=== PATIENT | male | born 1965 | race Caucasian/White ===

== ENCOUNTER 2020-01-28 05:12 | Inpatient (IN) | payer MEDICARE, MEDICAID ==
[~2020-01-28] VITALS: Ht 185.4 cm; Wt 86.2 kg
[~2020-01-28 05:12] MED LIST: ARIP20TA5 PO; BENZ1TAB7 PO; DIPH-423 PO; FLUO20CA39 PO; HAL5T PO; IBUP-1984 PO; LORA1TAB PO; LURA80TA PO; OLAN2.5T3 PO; OXCA600T25 PO
[2020-01-28 11:45] VITALS: BP 116/78
[2020-01-28] MEDS ORDERED: DIVA-81 PO (14:58)
[2020-01-28] MEDS ORDERED: mag hydrox/Alum hydrox/simeth 30ml oral suspension PO PRN (15:00)
[2020-01-28] MEDS ORDERED: magnesium hydroxide 30ml (MOM) UD suspension PO PRN (15:00)
[2020-01-28] MEDS ORDERED: acetaminophen 325mg tablet PO PRN (15:00)
[2020-01-28] MEDS ORDERED: loperamide 2mg capsule PO PRN (15:00)
[2020-01-28] MEDS ORDERED: ARIP400S3 IM (15:35)
[2020-01-28] MEDS ORDERED: SUCR1TAB PO (15:35)
[2020-01-28] MEDS ORDERED: TRIH2TAB3 PO (15:35)
[2020-01-28] MEDS ORDERED: DIVA500T4 PO ×2 (15:35)
[2020-01-28] MEDS ORDERED: OMEP20TA23 PO (15:35)
[2020-01-28] MEDS ORDERED: LOXA25CA PO (15:35)
[2020-01-28] MEDS ORDERED: PALI234D IM (15:35)
[2020-01-28] MEDS ORDERED: MIDO2.5T14 PO (15:35)
[2020-01-28] MEDS: sucralfate 1 gm tablet PO SCH ×2 (16:45→21:07)
--- NOTE | 2020-01-28 18:03 | NUR ---
Nursing Admit/progress Note: Legal hold: 5150 GD Report received from nursePolina Why are they here: Patient lives at a [facility] in [place] who reported that patient has been posturing towards peers and has increased agitation with staff. During [facility] 5150 assessment patient expressed delusions, became agitated, guarded and verbally hostile. 5150 states that patient was deemed unable to meet his own needs and is gravely disabled. Patient was admitted to the unit at 1145. Assessment What has happened this shift: Patient was brought up to the unit and introduces to staff. He was cooperative with admit process. Patient states that his diagnosis is Paranoid Schizophrenia. He says that he has been having difficulty with staff at the [facility] because one of them tells him to shut up. He states Im odd, I know, I talk to the t.v. Patient is delusional and reports having very bad diarrhea in the pst. He states I had a guinea pig that crawled up my asshole and . Ya, I had to get rid of him, he had a lot of babies Patient denies wanting to harm himself or others but does states that yesterday he was thinking [facility] [place] [facility]. S/I, H/I: denies A/VH: none reported Sleep: n/a ADL's: Independent. Showered Group attendance: Yes. Were meds taken: yes Any med S/E: none noted Mental Status Exam Appearance: Freshly showered, clean and neat. Eye contact: Direct. Behavior: Calm and cooperative. Speech: soft tone, normal rate and rhythm Mood: good Affect:wide eyed, mildly animated Thought process: disorganized Thought Content: delusional Cognition:A/O x 4 Insight: fair Judgment:poor Interventions PRN's used: Tylenol for pain Therapeutic interventions: 1:1 therapeutic assessment, maintained safe therapeutic milieu, provided active listening with positive reinforcement, provided medication administration/education/monitoring as needed; Q15 safety checks. Restraints/seclusion/emergency medication: N/A Justification of Continued Inpatient Treatment: Continued therapeutic support and medication management needed to provide stabilization, prevent decompensation, improve coping mechanisms decreasing risk to patient and re-admittance.
[2020-01-28 20:00] VITALS: BP 136/75
[2020-01-28] MEDS: LOXAPINE 25 MG PO SCH (20:00)
[2020-01-28] MEDS: trihexyphenidyl 2mg tablet PO SCH (21:07)
[2020-01-28] MEDS: divalproex sod 250mg ER (24-hour) tablet PO SCH (21:08)
[2020-01-28] MEDS: haloperidol 5mg tablet PO SCH (21:08)
--- NOTE | 2020-01-29 03:46 | NUR ---
Nursing progress Note: Legal hold: 5150 GD Report received from Susanne COE Why are they here: Patient lives at a [facility] in [place] who reported that patient has been posturing towards peers and has increased agitation with staff. During [facility] 5150 assessment patient expressed delusions, became agitated, guarded and verbally hostile. 5150 states that patient was deemed unable to meet his own needs and is gravely disabled. Patient was admitted to the unit at 1145. Assessment What has happened this shift: Patient observed pacing the phillips at the beginning of shift. He is pleasant and cooperative with all care; compliant with all medication. Patient denies SI, HI, A/VH. No delusional thought content provided this shift. Patient is slow to respond w/sometimes no response and smiling or chuckle. Patient participated in HS snack and shortly after laid down for bed where he has remained for the remainder of the night. No difficulties of sleep observed or reported. Patient's bed is low and locked with call willingham within reach. S/I, H/I: Denies A/VH: Denies Sleep: Refer to sleep assessment ADL's: Independent. Group attendance: No groups this shift Were meds taken: Yes Any med S/E: None reported or observed Mental Status Exam Appearance: Neat, clean, appropriate attire for the unit. Eye contact: Direct. Behavior: Calm and cooperative. Speech: Soft tone, normal rate and rhythm Mood: "Good" Affect: Animated Thought process: Poverty of thought Thought Content: No delusional thought content provided this shift Cognition: A/O x 3 Insight: Poor Judgment: Poor Interventions PRN's used: None Therapeutic interventions: 1:1 therapeutic assessment, maintained safe therapeutic milieu, provided active listening with positive reinforcement, provided medication administration/education/monitoring as needed; Q15 safety checks. Restraints/seclusion/emergency medication: N/A Justification of Continued Inpatient Treatment: Continued therapeutic support and medication management needed to provide stabilization, prevent decompensation, improve coping mechanisms decreasing risk to patient and re-admittance.
[2020-01-29 07:30] VITALS: BP 117/73
[2020-01-29] MEDS: haloperidol 5mg tablet PO SCH ×2 (07:54→21:08)
[2020-01-29] MEDS: divalproex sod 250mg ER (24-hour) tablet PO SCH ×2 (07:54→21:07)
[2020-01-29] MEDS: sucralfate 1 gm tablet PO SCH ×4 (07:55→21:07)
[2020-01-29] MEDS: pantoprazole 40mg Tablet.DR PO SCH (07:55)
[2020-01-29] MEDS ORDERED: midodrine tablet 2.5 MG TABLET PO SCH (08:00)
[2020-01-29] MEDS: trihexyphenidyl 2mg tablet PO SCH ×2 (08:00→21:07)
[2020-01-29] MEDS: LOXAPINE 25 MG PO SCH (08:00)
[2020-01-29] MEDS: midodrine 5mg tablet PO SCH (08:00)
[2020-01-29 09:56] LABS: HEMOGLOBIN A1C 5.8 % (4.5-6.2)
[2020-01-29 10:08] LABS: CHOL/HDL RATIO 3.9 (0.00-4.99); CHOLESTEROL 173 MG/DL (0-200); HDL CHOLESTEROL 44 MG/DL (35-60); LDL CHOLESTEROL 108 MG/DL (50-100); TRIGLYCERIDES 89 MG/DL (20-135); VALPROATE 90 UG/ML (50-100)
--- NOTE | 2020-01-29 13:59 | NUR ---
SS note: [address], "Sometimes I sit quietly and listen to my delusions because they are funny. They are not funny [when they are] about mass suicide [or] suicide probably because I tried that before." Ct stated, "I have demons inside me but I can cast them out."
--- NOTE | 2020-01-29 14:45 | NUR ---
PSYCHOSOCIAL ASSESSMENT Hardik is a 54 y/o single male who was placed on 5150 for grave disability. He has a long history of mental health treatment and a history of conservatorship.He has been residing at [facility] in [place]. He was recently taken off Clozaril due to decreased WBC in November. Hardik was refusing to take his medications and was uncooperative with staff at [facility]. Hardik had become increasingly agitated with staff and peers and had been posturing towards peers. He was delusional, paranoid, verbally hostile, and unable to care for his own needs. Per [facility] [place] Team Clinician, Hardik Michel, Hardik is able to return to [facility] once stabilized. LEXIE Squires Addendum: 01/29/20 at 1446 by Chata Elmore SS Amended: Links added.
--- NOTE | 2020-01-29 16:30 | NUR ---
Nursing progress Note: Hardik Legal hold: 5150 GD Report received from MARTINA Freire with use of SBAR Why are they here: Patient lives at a [facility] in [place] who reported that patient has been posturing towards peers and has increased agitation with staff. During [facility] 5150 assessment patient expressed delusions, became agitated, guarded and verbally hostile. 5150 states that patient was deemed unable to meet his own needs and is gravely disabled. Patient was admitted to the unit at 1145. Assessment What has happened this shift: Patient was awake ambulating in phillips at change of shift. Very pleasant, states he and his room mate where not getting along and it was causing him to become agitated I wasnt going to hurt anyone. When asked if he liked his room mate he stated He is alreight, but I am not attracted to him. Compliant with MH and physical assessment, denies any depression or hallucinations. I am here to get my medications straightened out. Appears very cheerful and cooperative. While sitting in hallway was asked how he was doing, states I think I am hallucinating then describes he saw the PCT pushing the coffee tray and thought he had seen him before. Continues to deny voices well maybe some mumbling. Changed into a superman t-shirt and states when I am depressed, I am frozen in cryptonite but currently denies depression. S/I, H/I: Denies A/VH: Denies Sleep: 8 ADL's: Independent Group attendance: No Were meds taken: yes Any med S/E: minor tremors noted to bilateral hands, patient states this is normal for him. Mental Status Exam Appearance: Hair combed, wearing street clothes Eye contact: direct Behavior: Upbeat, cheerful Speech: normal rate, rhythm, tone Mood: good Affect: Compliant with mood Thought process: [place] Thought Content: board and care, room mate and if he will be able to go back Cognition: A & O 4 Insight: poor Judgment: poor Interventions PRN's used: None Therapeutic interventions: 1:1 therapeutic assessment, maintained safe therapeutic milieu, provided active listening with positive reinforcement, provided medication administration/education/monitoring as needed; Q15 safety checks. Restraints/seclusion/emergency medication: N/A Justification of Continued Inpatient Treatment: Continued therapeutic support and medication management needed to provide stabilization, prevent decompensation, improve coping mechanisms decreasing risk to patient and re-admittance.
[2020-01-29 19:30] VITALS: BP 136/88
[2020-01-29] MEDS ORDERED: LOXAPINE 25 MG PO SCH (20:00)
[2020-01-29] MEDS: hydrOXYzine 25 MG tablet PO PRN (21:08)
--- NOTE | 2020-01-30 02:41 | NUR ---
Nursing progress Note: Hardik Legal hold: 5150 GD Report received from MARTINA Irby with use of SBAR Why are they here: Patient lives at a [facility] in [place] who reported that patient has been posturing towards peers and has increased agitation with staff. During [facility] 5150 assessment patient expressed delusions, became agitated, guarded and verbally hostile. 5150 states that patient was deemed unable to meet his own needs and is gravely disabled. Patient was admitted to the unit at 1145. Assessment What has happened this shift: Patient is self isolating in his room. Patient exhibits anger and refuses to talk to this com writer. Patient is also yelling at other staff. This is untoward his normal behavior. This com writer engaged multiple strategies to engage the patient. Patient responded well to cars as a topic. Patients attitude brightened. Patient tells this com writer he was angry with his mother. When talking patients hands trembled. Initially eye contact was poor. Gradually patient smiled and joked. Patient states "I've been depressed, nothing works." He then states, "Nothing turns me on more than my power, I can use it to take control." The patient then went for snacks and socialized some. Later the patient requested this com writer to show him pictures of fast cars. Patient followed by coming medication compliant and went to sleep. Patient Denies S/I or H/I at this time. No signs of internal stimuli noted. S/I, H/I: Denies A/VH: Denies Sleep:Will tally in late am. ADL's: Independent Group attendance: Not on day shift. Were meds taken: Yes, medication compliant. Any med S/E: None. Mental Status Exam Appearance: Clean look, wearing civilian clothes. Eye contact: Intermittent. Behavior: Angry and unruly. Speech: Loud at first, patient then quiets down. Mood: Angry and demanding. Affect: Compliant with mood Thought process: [place]. Thought Content: I'm from hell, nothing works for my depression. Cognition: A & O 4 Insight: Poor. Judgment: Poor. Interventions PRN's used: None Therapeutic interventions: 1:1 therapeutic assessment, maintained safe therapeutic milieu, provided active listening with positive reinforcement, provided medication administration/education/monitoring as needed; Q15 safety checks. Restraints/seclusion/emergency medication: N/A Justification of Continued Inpatient Treatment: Continued therapeutic support and medication management needed to provide stabilization, prevent decompensation, improve coping mechanisms decreasing risk to patient and re-admittance.
[2020-01-30] MEDS: trihexyphenidyl 2mg tablet PO SCH ×2 (07:59→20:33)
[2020-01-30] MEDS: pantoprazole 40mg Tablet.DR PO SCH (07:59)
[2020-01-30] MEDS: sucralfate 1 gm tablet PO SCH ×4 (07:59→21:37)
[2020-01-30] MEDS: midodrine 5mg tablet PO SCH (07:59)
[2020-01-30] MEDS: haloperidol 5mg tablet PO SCH ×2 (07:59→20:32)
[2020-01-30 08:00] VITALS: BP 119/76
[2020-01-30] MEDS: divalproex sod 250mg ER (24-hour) tablet PO SCH ×2 (08:00→20:34)
[2020-01-30] MEDS: LOXAPINE SUCCINATE 25 MG CAPSULE PO SCH ×2 (10:12→20:31)
--- NOTE | 2020-01-30 15:27 | NUR ---
Nursing progress Note: Hardik Legal hold: 5150 GD Report received from Lloyd RN with use of SBAR Why are they here: Patient lives at a [facility] in [place] who reported that patient has been posturing towards peers and has increased agitation with staff. During [facility] 5150 assessment patient expressed delusions, became agitated, guarded and verbally hostile. 5150 states that patient was deemed unable to meet his own needs and is gravely disabled. Patient was admitted to the unit at 1145. Assessment What has happened this shift: Pt. Was seen in community room. Denies depression or anxiety however admits to not being in a good mood. C/O of staff looking in on him all night and when he complained they flipped me off. Explained why he was being closely observed which he responded I dont care, I wake up really easy. He then began talking about his money and how the [facility] take it all. I would rather live on the streets than go back there. The conversation was causing increasing agitation so suggested he discuss his concerns over discharge with the SW. Was med compliant. Is observed responding to internal stimuli, while walking in hallway loudly stated [place] then held a tangential interaction with the provider talking about how bad this place is, it would be better if it was bombed. He admits he woke up in a poor mood and is waiting for it to get better. Refused group, sits quietly in room with intermittent outbursts. S/I, H/I: Denies A/VH: Denies Sleep: 7 ADL's: independent Group attendance: Were meds taken: without incident Any med S/E: slight tremors to bilateral hands, patient states normal for him Mental Status Exam Appearance: Cai hair, wearing a superman t-shirt (same as yesterday) unshaven Eye contact: direct Behavior: angry, agitated Speech: clear, pressured at times Mood: Poor, angry Affect: Congruent with mood Thought process: Tangential, c/o of staff then c/o of [facility] Thought Content: his money, delusions that someone is stealing it from him Cognition: A & O 4 Insight: Poor. Judgment: Poor. Interventions PRN's used: None Therapeutic interventions: 1:1 therapeutic assessment, maintained safe therapeutic milieu, provided active listening with positive reinforcement, provided medication administration/education/monitoring as needed; Q15 safety checks. Restraints/seclusion/emergency medication: N/A Justification of Continued Inpatient Treatment: Continued therapeutic support and medication management needed to provide stabilization, prevent decompensation, improve coping mechanisms decreasing risk to patient and re-admittance.
[2020-01-30 20:00] VITALS: BP 116/68
[2020-01-30] MEDS: hydrOXYzine 25 MG tablet PO PRN (20:34)
--- NOTE | 2020-01-30 22:48 | NUR ---
Nursing progress Note: Hardik Legal hold: 5150 GD Report received from MARTINA Skinner with use of SBAR Why are they here: Patient lives at a [facility] in [place] who reported that patient has been posturing towards peers and has increased agitation with staff. During [facility] 5150 assessment patient expressed delusions, became agitated, guarded and verbally hostile. 5150 states that patient was deemed unable to meet his own needs and is gravely disabled. Patient was admitted to the unit at 1145. Assessment What has happened this shift: Patient is isolating in his room following shift change. Patient curses at staff, accusing other patients of trying to rape him. Calming measures used. Patient made racial remarks about another patient. This process description writer advised the patient that yelling and accusations would not be tolerated on this unit. The patient then calmed, he ate dinner and had snacks. Patient later told this process description writer that his family has abandoned him. At times the patient is delusional. Patient complied with medication administration. He eventually retired to sleep. S/I, H/I: Denies. A/VH: Denies, he looks like he may be responding to internal stimuli at times. Sleep:Will tally in late am. ADL's: Independent Group attendance: No group on nights. Were meds taken: Yes, medication compliant. Any med S/E: None. Mental Status Exam Appearance: Clean look, wearing civilian clothes. Eye contact: Intermittent. Behavior: Angry and unruly. Speech: Loud at first, patient then quiets down. Mood: Angry and demanding. Affect: Compliant with mood Thought process: [place]. Thought Content: My family hates me, they don't want me around. Patient believes he will be raped here. Cognition: A & O 4 Insight: Poor. Judgment: Poor. Interventions PRN's used: None Therapeutic interventions: 1:1 therapeutic assessment, maintained safe therapeutic milieu, provided active listening with positive reinforcement, provided medication administration/education/monitoring as needed; Q15 safety checks. Restraints/seclusion/emergency medication: N/A Justification of Continued Inpatient Treatment: Continued therapeutic support and medication management needed to provide stabilization, prevent decompensation, improve coping mechanisms decreasing risk to patient and re-admittance.
[2020-01-31] MEDS: sucralfate 1 gm tablet PO SCH ×4 (07:40→20:32)
[2020-01-31] MEDS: pantoprazole 40mg Tablet.DR PO SCH (07:40)
[2020-01-31] MEDS: trihexyphenidyl 2mg tablet PO SCH ×2 (07:40→20:32)
[2020-01-31] MEDS: divalproex sod 250mg ER (24-hour) tablet PO SCH ×2 (07:41→20:33)
[2020-01-31] MEDS: midodrine 5mg tablet PO SCH (07:41)
[2020-01-31] MEDS: haloperidol 5mg tablet PO SCH ×2 (07:41→20:32)
[2020-01-31] MEDS: LOXAPINE SUCCINATE 25 MG CAPSULE PO SCH ×2 (07:43→20:32)
[2020-01-31 08:00] VITALS: BP 101/63
--- NOTE | 2020-01-31 15:43 | NUR ---
Nursing progress Note: Hardik Legal hold: 5150 GD Report received from MARTINA Barron with use of SBAR Why are they here: Patient lives at a [facility] in [place] who reported that patient has been posturing towards peers and has increased agitation with staff. During [facility] 5150 assessment patient expressed delusions, became agitated, guarded and verbally hostile. 5150 states that patient was deemed unable to meet his own needs and is gravely disabled. Patient was admitted to the unit at 1145. Assessment What has happened this shift: When asked if he was in a better mood, patient responded yes and then agreed he would try and have a good day. When asked about anxiety/agitation patient discusses that he feels agitation when thinking about how he is treated at [facility]. Then begins stating that he doesnt like his roommate and that the roommate is wearing all of his clothes. The conversation then starts about being conserved, stating that he asked to be conserved so he would have more control of his money, which then led to him talking about some woman who is stealing all of his money. Says he is fine with everything here. Participated in client led [employer] game interacted appropriately. S/I, H/I: denies A/VH: denies Sleep: 6 ADL's: Independent, showered today Group attendance: No groups offered today Were meds taken: yes Any med S/E: none reported, slight tremors, states normal for him Mental Status Exam Appearance: nicely groomed lama hair, likes to wear hat, superman shirt and camo pants Eye contact: direct Behavior: appropriate, cooperative Speech: normal rate, rhythm, tone Mood: okay Affect: Congruent with mood Thought process: Tangential Thought Content: Delusions as described above Cognition: A & O 4 Insight: Poor. Judgment: Poor. Interventions PRN's used: None Therapeutic interventions: 1:1 therapeutic assessment, maintained safe therapeutic milieu, provided active listening with positive reinforcement, provided medication administration/education/monitoring as needed; Q15 safety checks. Restraints/seclusion/emergency medication: N/A Justification of Continued Inpatient Treatment: Continued therapeutic support and medication management needed to provide stabilization, prevent decompensation, improve coping mechanisms decreasing risk to patient and re-admittance.
[2020-01-31 20:06] VITALS: BP 95/55
--- NOTE | 2020-02-01 02:00 | NUR ---
Nursing progress Note: Legal hold: 5150 for GD Report received from MARTINA Skinner with use of SBAR Why are they here: Patient lives at a [facility] in [place] who reported that patient has been posturing towards peers and has increased agitation with staff. During [facility] 5150 assessment patient expressed delusions, became agitated, guarded and verbally hostile. 5150 states that patient was deemed unable to meet his own needs and is gravely disabled. Patient was admitted to the unit at 1145. Assessment What has happened this shift: The patient was found in the group room watching tv. He agrees to talk in his room. the patient reports that he has no idea why he's here. "Probably cause I'm paranoid." He reports that he started new meds and is doing much better. "I'm just a worry wart." He says that he has no parents, "well my mom might be around somewhere, but I don't know. The patient spent most of the evening in the group room with other clients. He ate snacks, was med compliant and went to bed after med pass. S/I, H/I: Denies. A/VH: Denies. Sleep: See sleep assessment. ADL's: Independent Group attendance: No group on nights. Were meds taken: Yes, medication compliant. Any med S/E: None. Mental Status Exam Appearance: Clean , messy hair, wears camo pants and shirt. Eye contact: Direct. Behavior: Cooperative, paranoid, anxious. Speech: Normal. Mood: "Good". Affect: restricted Thought process: [place]. Thought Content: I lost my family Cognition: A & O 4 Insight: Poor. Judgment: Poor. Interventions PRN's used: None Therapeutic interventions: 1:1 therapeutic assessment, maintained safe therapeutic milieu, provided active listening with positive reinforcement, provided medication administration/education/monitoring as needed; Q15 safety checks. Restraints/seclusion/emergency medication: N/A Justification of Continued Inpatient Treatment: Continued therapeutic support and medication management needed to provide stabilization, prevent decompensation, improve coping mechanisms decreasing risk to patient and re-admittance.
[2020-02-01] MEDS: trihexyphenidyl 2mg tablet PO SCH ×2 (07:19→20:08)
[2020-02-01] MEDS: sucralfate 1 gm tablet PO SCH ×4 (07:19→20:09)
[2020-02-01] MEDS: LOXAPINE SUCCINATE 25 MG CAPSULE PO SCH ×2 (07:19→20:08)
[2020-02-01] MEDS: haloperidol 5mg tablet PO SCH ×2 (07:19→20:09)
[2020-02-01] MEDS: divalproex sod 250mg ER (24-hour) tablet PO SCH ×2 (07:20→20:09)
[2020-02-01] MEDS: midodrine 5mg tablet PO SCH (07:20)
[2020-02-01] MEDS: pantoprazole 40mg Tablet.DR PO SCH (07:20)
[2020-02-01 07:30] VITALS: BP 103/56
--- NOTE | 2020-02-01 16:25 | NUR ---
Nursing progress Note: Hardik Legal hold: 5150 GD Report received from MARTINA Fortune with use of SBAR Why are they here: Patient lives at a [facility] in [place] who reported that patient has been posturing towards peers and has increased agitation with staff. During [facility] 5150 assessment patient expressed delusions, became agitated, guarded and verbally hostile. 5150 states that patient was deemed unable to meet his own needs and is gravely disabled. Patient was admitted to the unit at 1145. Assessment What has happened this shift: was up standing in doorway of room at change of shift. States he slept well and felt today would be a good day. During medication administrations patient noted to have moist cough and runny nose. States he feels fine. Influenza swab obtained. Patient states I want to be sick, then I can sleep all day. No initial s/s of paranoid delusions. Observed in room yelling that he wanted to be conserved so he had control of his money. Later he approached this financial underwriter and stated he was made because he only had his one shirt (superman shirt). He was offered another shirt and then asked for a set of green scrubs which were provided for him. Interacts appropriately with others on the unit and with staff. Enjoyed time out on the patio, no aggressive outbursts. S/I, H/I: denies A/VH: denies Sleep:7.0 ADL's: Independent, showered yesterday Group attendance: No group offered today, did go out on patio Were meds taken: yes Any med S/E: none reported, slight tremors, states normal for him Mental Status Exam Appearance: nicely groomed lama hair, likes to wear hat, superman shirt and camo pants Eye contact: direct Behavior: appropriate, cooperative Speech: normal rate, rhythm, tone Mood: okay Affect: Congruent with mood Thought process: Tangential Thought Content: Delusions as described above Cognition: A & O 4 Insight: Poor. Judgment: Poor. Interventions PRN's used: None Therapeutic interventions: 1:1 therapeutic assessment, maintained safe therapeutic milieu, provided active listening with positive reinforcement, provided medication administration/education/monitoring as needed; Q15 safety checks. Restraints/seclusion/emergency medication: N/A Justification of Continued Inpatient Treatment: Continued therapeutic support and medication management needed to provide stabilization, prevent decompensation, improve coping mechanisms decreasing risk to patient and re-admittance.
[2020-02-01 20:00] VITALS: BP 110/79
--- NOTE | 2020-02-02 01:56 | NUR ---
Nursing progress Note: Legal hold: 5150 for GD Report received from MARTINA Skinner with use of SBAR Why are they here: Patient lives at a [facility] in [place] who reported that patient has been posturing towards peers and has increased agitation with staff. During [facility] 5150 assessment patient expressed delusions, became agitated, guarded and verbally hostile. 5150 states that patient was deemed unable to meet his own needs and is gravely disabled. Patient was admitted to the unit at 1145. Assessment What has happened this shift: The patient was seen in his room. "Got my 5250 today." When asked if he agreed to it, he responded, "It's better here than where I was. I'm more stable than I was." He says that there are no voices today. "They don't like me at [facility], I want to go to [facility]." The patient states that he wants to get better, "I want a new car and to go to school." The patient has become more sociable and less isolating. He is speaking more clearly and making more sense. S/I, H/I: Denies. A/VH: Denies. Sleep: See sleep assessment. ADL's: Independent Group attendance: No group on nights. Were meds taken: Yes, medication compliant. Any med S/E: None. Mental Status Exam Appearance: Clean , appears freshly showered, wearing green scrubs. Eye contact: Direct. Behavior: Cooperative, paranoid. Speech: Normal Mood: "I'm eyla feeling down." Affect: Constricted Thought process: [place]. Thought Content: "I want to go to [facility]" Cognition: A & O 4 Insight: Poor. Judgment: Poor. Interventions PRN's used: None Therapeutic interventions: 1:1 therapeutic assessment, maintained safe therapeutic milieu, provided active listening with positive reinforcement, provided medication administration/education/monitoring as needed; Q15 safety checks. Restraints/seclusion/emergency medication: N/A Justification of Continued Inpatient Treatment: Continued therapeutic support and medication management needed to provide stabilization, prevent decompensation, improve coping mechanisms decreasing risk to patient and re-admittance.
[2020-02-02 07:25] VITALS: BP 126/80
[2020-02-02] MEDS: LOXAPINE SUCCINATE 25 MG CAPSULE PO SCH ×2 (08:16→20:33)
[2020-02-02] MEDS: trihexyphenidyl 2mg tablet PO SCH ×2 (08:16→20:33)
[2020-02-02] MEDS: haloperidol 5mg tablet PO SCH ×2 (08:17→20:33)
[2020-02-02] MEDS: divalproex sod 250mg ER (24-hour) tablet PO SCH ×2 (08:17→20:33)
[2020-02-02] MEDS: midodrine 5mg tablet PO SCH (08:17)
[2020-02-02] MEDS: pantoprazole 40mg Tablet.DR PO SCH (08:17)
[2020-02-02] MEDS: sucralfate 1 gm tablet PO SCH ×4 (08:17→20:33)
--- NOTE | 2020-02-02 15:04 | NUR ---
Initial: Pt admit w/ paranoid schizophrenia resisting meds per MD note. PO 75-100% avg regular diet meeting needs. LBM 01/29. No nutrition concerns at this time. Will continue to monitor. Rec: 1. continue regular diet 2. bowel care as needed 3. wt per rx Addendum: 02/02/20 at [address] Amended: Links added.
[2020-02-02 20:00] VITALS: BP 125/69
[2020-02-02] MEDS: acetaminophen 325mg tablet PO PRN (21:34)
--- NOTE | 2020-02-03 00:13 | NUR ---
Nursing progress Note: Legal hold: 5250 for GD Report received from MARTINA Skinner with use of SBAR Why are they here: Patient lives at a [facility] in [place] who reported that patient has been posturing towards peers and has increased agitation with staff. During [facility] 5150 assessment patient expressed delusions, became agitated, guarded and verbally hostile. 5150 states that patient was deemed unable to meet his own needs and is gravely disabled. Patient was admitted to the unit at 1145. Assessment What has happened this shift: The patient was seen in his room. Asked how he's doing, "I'm getting along just fine. Haldol seems to be working just fine. I was using Clozaril, and it worked fine, but it was killing me." The patient then stated that he had a headache today, "I'm a paranoid Schizophrenic...I get paranoid and then get a headache. Not bad, just moderate." Declines anything for GATES. The patient reports that he's paranoid, but feeling safe right now. asked about his life growing up, "Well, my dad when I was 2. He got pneumonia due to complications from Diabetes. I got a step-father then. My mom, I don't know where she is." The patient spends most time in his room, but has been coming out more. S/I, H/I: Denies. A/VH: Denies. Sleep: See sleep assessment. ADL's: Independent Group attendance: No group on nights. Were meds taken: Yes, medication compliant. Any med S/E: None. Mental Status Exam Appearance: Clean , appears freshly showered, wearing glasses and street clothes. Eye contact: Direct. Behavior: Cooperative, paranoid. Speech: Slowed Mood: "Just fine." Affect: Constricted Thought process: [place]. Thought Content: "I want to go to [facility]" Cognition: A & O 4 Insight: Poor. Judgment: Poor. Interventions PRN's used: None Therapeutic interventions: 1:1 therapeutic assessment, maintained safe therapeutic milieu, provided active listening with positive reinforcement, provided medication administration/education/monitoring as needed; Q15 safety checks. Restraints/seclusion/emergency medication: N/A Justification of Continued Inpatient Treatment: Continued therapeutic support and medication management needed to provide stabilization, prevent decompensation, improve coping mechanisms decreasing risk to patient and re-admittance.
[2020-02-03 08:01] VITALS: BP 95/60
[2020-02-03] MEDS: pantoprazole 40mg Tablet.DR PO SCH (08:20)
[2020-02-03] MEDS: trihexyphenidyl 2mg tablet PO SCH ×2 (08:20→20:55)
[2020-02-03] MEDS: sucralfate 1 gm tablet PO SCH ×4 (08:21→20:55)
[2020-02-03] MEDS: divalproex sod 250mg ER (24-hour) tablet PO SCH ×2 (08:21→20:56)
[2020-02-03] MEDS: midodrine 5mg tablet PO SCH (08:22)
[2020-02-03] MEDS: haloperidol 5mg tablet PO SCH ×2 (08:22→20:55)
[2020-02-03] MEDS: LOXAPINE SUCCINATE 25 MG CAPSULE PO SCH ×2 (08:22→20:55)
[2020-02-03] MEDS: acetaminophen 325mg tablet PO PRN ×2 (08:24→16:08)
--- NOTE | 2020-02-03 14:56 | NUR ---
Nursing progress Note: Legal hold: 5150 Report received from RN with use of SBAR Why are they here: Patient lives at a [facility] in [place] who reported that patient has been posturing towards peers and has increased agitation with staff. During [facility] 5150 assessment patient expressed delusions, became agitated, guarded and verbally hostile. 5150 states that patient was deemed unable to meet his own needs and is gravely disabled. Patient was admitted to the unit at 1145. Assessment What has happened this shift: Received Pt in bed sleeping w/o distress at beginning of shift. Pt reports he slept well and in cooperative with staff and others. Pt actively delusional, stating that one of the unit RNs is not really a nurse and she flys around and torments me. Behaved erratically around breakfast then returned to being more calm. Pt received Tylenol for H/A in the AM and took a nap before lunch. Pt speaks loudly at times and deliberately. He spent time in day room and recreation room and walked halls a bit. He spoke of not doing drugs or combining street drugs with his meds. He appears to get along with other Pts well and responds to active listening and concern. S/I, H/I: Denies A/VH: Denies Sleep: Napped in morning ADL's: Independent, showered yesterday Group attendance: No group attendance or patio Were meds taken: Yes Any med S/E: None reported or observed Mental Status Exam Appearance: Groomed in street clothes Eye contact: Direct Behavior: Cooperative Speech: Normal rate, rhythm, tone Mood: Anxious Affect: Congruent with mood Thought process: Tangential Thought Content: Delusions as described above Cognition: A & O 4 Insight: Poor. Judgment: Poor. Interventions PRN's used: Tylenol Therapeutic interventions: 1:1 therapeutic assessment, maintained safe therapeutic milieu, provided active listening with positive reinforcement, provided medication administration/education/monitoring as needed; Q15 safety checks. Restraints/seclusion/emergency medication: N/A Justification of Continued Inpatient Treatment: Continued therapeutic support and medication management needed to provide stabilization, prevent decompensation, and improve coping mechanisms decreasing risk to patient and re-admittance.
[2020-02-03 20:00] VITALS: BP 133/87
--- NOTE | 2020-02-04 02:41 | NUR ---
Nursing progress Note: Legal hold: 5250 Report received from MARTINA Brock with use of SBAR Why are they here: Patient lives at a [facility] in [place] who reported that patient has been posturing towards peers and has increased agitation with staff. During [facility] 5150 assessment patient expressed delusions, became agitated, guarded and verbally hostile. 5150 states that patient was deemed unable to meet his own needs and is gravely disabled. Patient was admitted to the unit at 1145. Assessment What has happened this shift: Patient is up and walking the unit at change of shift. He spends time watching TV or sitting in chair in the hallway conversing with staff about games he likes to play to keep him busy. Patient is pleasant and interacts appropriately with staff and peers. He is cooperative for all evening medications and places himself in bed after pacing the hallways a bit more. S/I, H/I: Denies A/VH: Denies Sleep: Currently sleeping, see sleep assessment ADL's: Independent, showered yesterday Group attendance: No groups this shift Were meds taken: Yes Any med S/E: None reported or observed Mental Status Exam Appearance: Groomed in street clothes Eye contact: Direct Behavior: Cooperative Speech: Normal rate, rhythm, tone Mood: Anxious Affect: Congruent with mood Thought process: Tangential Thought Content: Discussing board games and what keeps himself busy with staff Cognition: A & O 4 Insight: Poor. Judgment: Poor. Interventions PRN's used: NA Therapeutic interventions: 1:1 therapeutic assessment, maintained safe therapeutic milieu, provided active listening with positive reinforcement, provided medication administration/education/monitoring as needed; Q15 safety checks. Restraints/seclusion/emergency medication: N/A Justification of Continued Inpatient Treatment: Continued therapeutic support and medication management needed to provide stabilization, prevent decompensation, and improve coping mechanisms decreasing risk to patient and re-admittance.
[2020-02-04 08:00] VITALS: BP 119/70
[2020-02-04] MEDS ORDERED: LOXAPINE SUCCINATE 25 MG CAPSULE PO SCH ×2 (08:00→08:40)
[2020-02-04] MEDS: midodrine 5mg tablet PO SCH (08:04)
[2020-02-04] MEDS: divalproex sod 250mg ER (24-hour) tablet PO SCH ×2 (08:04→21:06)
[2020-02-04] MEDS: haloperidol 5mg tablet PO SCH ×2 (08:04→21:04)
[2020-02-04] MEDS: sucralfate 1 gm tablet PO SCH ×4 (08:05→21:05)
[2020-02-04] MEDS: trihexyphenidyl 2mg tablet PO SCH ×2 (08:05→21:04)
[2020-02-04] MEDS: pantoprazole 40mg Tablet.DR PO SCH (08:07)
--- NOTE | 2020-02-04 11:19 | NUR ---
Nursing progress Note: Legal hold: 5150 Report received from CAROLIN Fish with use of SBAR Why are they here: Patient lives at a [facility] in [place] who reported that patient has been posturing towards peers and has increased agitation with staff. During [facility] 5150 assessment patient expressed delusions, became agitated, guarded and verbally hostile. 5150 states that patient was deemed unable to meet his own needs and is gravely disabled. Patient was admitted to the unit at 1145. Assessment What has happened this shift: Pt up walking the halls and mumbling to himself occasionally speaks out, loudly. Pt shared some childhood stories. Pharmacy called they are unable to get his Loxapine [facility] his [facility] will bring the medication in today or tomorrow. S/I, H/I: Denies A/VH: Denies Sleep: Napped in morning ADL's: Independent Group attendance: No Were Meds taken: Yes Any med S/E: None reported or observed Mental Status Exam Appearance: Wearing street clothes Eye contact: Direct Behavior: Cooperative Speech: Normal rate and rhythm Mood: Impulsive verbally Affect: Congruent with mood Thought process: Tangential Thought Content: delusional Cognition: A & O 4 Insight: Poor. Judgment: Poor. Interventions PRN's used: Tylenol Therapeutic interventions: provided therapeutic communication and active listening, medication administration/education/monitoring as needed; Q15 safety checks. Restraints/seclusion/emergency medication: N/A Justification of Continued Inpatient Treatment: Continued therapeutic support and medication management needed to provide stabilization, prevent decompensation, and improve coping mechanisms decreasing risk to patient and re-admittance.
[2020-02-04 19:00] VITALS: BP 117/75
--- NOTE | 2020-02-05 04:11 | NUR ---
Nursing progress Note: Legal hold: 5250 Report received from Lon COE with use of SBAR Why are they here: Patient lives at a B&[facility] in [place] who reported that patient has been posturing towards peers and has increased agitation with staff. During [facility] 5150 assessment patient expressed delusions, became agitated, guarded and verbally hostile. 5150 states that patient was deemed unable to meet his own needs and is gravely disabled. Patient was admitted to the unit at 1145. Assessment What has happened this shift: Patient is visible on the unit at change of shift. He watches TV with his peers but keeps to himself for the most part this evening. He reports have ing a "good" day and denies SI/HI, AH/VH stating he feels like the "Haldol is working". He is complaint with all HS medications and puts himself to bed without prompting. S/I, H/I: Denies A/VH: Denies Sleep: Napped in morning ADL's: Independent Group attendance: No groups this shift Were Meds taken: Yes Any med S/E: None reported or observed Mental Status Exam Appearance: Wearing street clothes Eye contact: Direct Behavior: Cooperative Speech: Normal rate and rhythm Mood: Calm, "Good" Affect: Congruent with mood Thought process: Tangential Thought Content: No delusional statements made this shift. Cognition: A & O 4 Insight: Poor. Judgment: Poor. Interventions PRN's used: None Therapeutic interventions: provided therapeutic communication and active listening, medication administration/education/monitoring as needed; Q15 safety checks. Restraints/seclusion/emergency medication: N/A Justification of Continued Inpatient Treatment: Continued therapeutic support and medication management needed to provide stabilization, prevent decompensation, and improve coping mechanisms decreasing risk to patient and re-admittance.
[2020-02-05 07:41] VITALS: BP 137/80
[2020-02-05] MEDS: pantoprazole 40mg Tablet.DR PO SCH (08:17)
[2020-02-05] MEDS: midodrine 5mg tablet PO SCH (08:17)
[2020-02-05] MEDS: haloperidol 5mg tablet PO SCH ×2 (08:17→20:17)
[2020-02-05] MEDS: divalproex sod 250mg ER (24-hour) tablet PO SCH ×2 (08:17→20:16)
[2020-02-05] MEDS: trihexyphenidyl 2mg tablet PO SCH ×2 (08:18→20:17)
[2020-02-05] MEDS: sucralfate 1 gm tablet PO SCH ×4 (08:18→20:17)
[2020-02-05 08:32] LABS: BASOPHILS % (AUTO) 0.9 % (0-1); EOSINOPHILS # (AUTO) 0.5 X10'3 (0-0.9); EOSINOPHILS % (AUTO) 10.5 % (0-6); HEMATOCRIT 37.2 % (42.0-52.0); HEMOGLOBIN 12.6 g/dl (14.0-17.9); LYMPHOCYTES # (AUTO) 1.4 X10'3 (1.1-4.8); LYMPHOCYTES % (AUTO) 28.6 % (21-51); MEAN CORPUSCULAR HEMOGLOBIN 32.9 PG (27.0-31.0); MEAN CORPUSCULAR HGB CONC 33.9 g/dL (33.0-36.5); MEAN CORPUSCULAR VOLUME 97.1 FL (78-98); MEAN PLATELET VOLUME 7.4 FL (7.4-10.4); MONOCYTES # (AUTO) 0.7 X10'3 (0-0.9); MONOCYTES % (AUTO) 13.4 % (2-12); NEUTROPHILS # (AUTO) 2.3 X10'3 (1.8-7.7); NEUTROPHILS % (AUTO) 46.6 % (42-75); PLATELET COUNT 235 X10'3 (140-440); RED BLOOD COUNT 3.83 X10'6 (4.70-6.10); RED CELL DISTRIBUTION WIDTH 14.3 % (11.5-14.5)
--- NOTE | 2020-02-05 14:23 | NUR ---
Nursing progress Note: Legal hold: 5250 Report received from Vivian MACK with use of SBAR Why are they here: Patient lives at a [facility] in [place] who reported that patient has been posturing towards peers and has increased agitation with staff. During [facility] 5150 assessment patient expressed delusions, became agitated, guarded and verbally hostile. 5150 states that patient was deemed unable to meet his own needs and is gravely disabled. Patient was admitted to the unit at 1145. Assessment What has happened this shift: Pt reported not sleeping well last night due to wearing uncomfortable facility disposable underwear that was too tight. Pt stated that he usually wears boxers but only has one pair here which he put back on this morning. Suggested that he could have his clothes and boxers washed today, pt was agreeable, PCT notified. Pt denied depression, SI, VH. He did report AH hearing the voice of God speaking to him through the vents earlier this morning; pt indicated that God speaking with him was a usual occurrence. 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 Pt reported that he slammed Zyprexa in his foot back when he was living on the streets. He described crushing the pill, mixing it with water, heating it on a spoon and drawing it up in a syringe then injecting it into his foot. 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 Pt expressed concern that his roommate at his [facility] and [facility] may have stolen his stuff. Suggested he call the person running the board and care about his concerns. Pt stated that he better not, that this is part of his problem, accusing people of things. Pt seems to have some insight into his mental illness and symptoms, heard pt later talking to a nursing associate about how people don't like him because he talks too much. Pt had been watching TV in the rec room after breakfast and began yelling that he broke his foot. Pt stated that he hit his little toe on the chair and that he heard it snap. Asked pt to remove nonskid sock, assessed foot and toes, no evidence of a fracture noted, no redness, swelling or discoloration. Pt was able to wiggle his little toe back and forth. Gently palpated his toes with no apparent tenderness to touch. Explained findings to patient. Pt insisted it was broken, stated he broke his foot before and no one did anything about it. Pt had a verbal outburst and yelled some profanities at this RN. Verbal de-escalation, limit setting, and show of support utilized, pt continued to be argumentative for a few minutes. Offered to provide ice for his foot and prn Tylenol. Pt refused both. In response to the Tylenol, pt asked, "do you know what that stuff does to you?" Asked pt to elaborate. Pt stated that he took some yesterday and didn't want to get addicted. Medication education provided that Tylenol is not a narcotic, that there is no risk of addiction, that it can be purchased at [facility] and they don't sell narcotics over the counter at [facility]. Reality orientation largely ineffective. Offered pt some prn Atarax which he refused. Gave pt some space and time alone in the rec room. Pt was the only person in the rec room at the time. Pt used the phone, heard pt yelling into the phone that he broke his foot and no one was helping him so he just wanted to . PCT provided limit setting. Pt calmed down in a little while. This RN again offered ice and Tylenol, pt continued to decline. Pt complained of his feet hurting when he walks on them, pt did not wish to use his shoes without laces. Found a pair of slides in the pt's size in the laundry room clothing supply area. Provided them to the pt. Pt was appreciative and expressed relief of foot pain. After group, pt approached this RN to state that he felt his toe "set itself" during group, seemed to think that it had something to do with another pt saying something. Pt reported that it really hurt when it set itself. Offered ice and prn Tylenol again which pt refused. No further suicidal statements or verbal outbursts, pt is currently pleasant and cooperative. S/I, H/I: Pt initially denied, did have one verbal outburst in which he stated he wanted to . A/VH: Pt denies VH, admits to , God was talking to him through the vents. Sleep: Pt reported poor sleep and early rising due to uncomfortable underwear. ADL's: Independent Group attendance: Yes Were Meds taken: Yes Any med S/E: None noted or reported. Mental Status Exam Appearance: Pt has longish hair, he wears a camo baseball cap and glasses. Eye contact: good Behavior: Pt had some agitation/ verbal outbursts today Speech: Clear, audible, loud at times. Mood: Initially good then had a brief period of anger/agitation. Affect: Full range, animated at times. Thought process: Delusional, circumstantial Thought Content: Believes his roommate at the [facility] may be taking his things, believes he broke his foot today, believes that Tylenol is addictive. Cognition: A/O X 4 Insight: Fair Judgment: Poor Interventions PRN's used: None, pt refused prn medications for pain and anxiety/agitation. Therapeutic interventions: 1:1 assessment, active listening, therapeutic conversation, medication administration/education/monitoring, behavior monitoring and intervention; reality orientation, limit setting, show of support, positive reinforcement, Q15 minute safety checks. Restraints/seclusion/emergency medication: N/A Justification of Continued Inpatient Treatment: Continued therapeutic support and medication management needed to provide stabilization, prevent decompensation, and improve coping mechanisms decreasing risk to patient and re-admittance.
[2020-02-05] MEDS ORDERED: traZODone 50mg tablet PO SCH (20:00)
[2020-02-05 20:05] VITALS: BP 133/89
[2020-02-05] MEDS: aripiprazole 5mg tablet PO SCH (21:00)
--- NOTE | 2020-02-06 02:13 | NUR ---
Nursing progress Note: Legal hold: 5250 Report received from MARTINA Forrest with use of SBAR Why are they here: Patient lives at a B&C in [place] who reported that patient has been posturing towards peers and has increased agitation with staff. During [facility] 5150 assessment patient expressed delusions, became agitated, guarded and verbally hostile. 5150 states that patient was deemed unable to meet his own needs and is gravely disabled. Patient was admitted to the unit at 1145. Assessment What has happened this shift: Patient is present in the recreation room at change of shift watching TV with his peers. Met with patient in the groups room for a 1:1 assessment. Patient denies SI/HI, and VH. He states that he still has AH. Patient reports that he "Broke my toe today." And when asked how her reported stubbing his toe on a chair. Thi card writer hand asked to check out his toe and assess it. patient was agreeable. Patient removed his sock and it was noted that on patients right foot pinky toe that it was red, swollen and had bruising to it. Dr. Starks is notified and an X_Ray is ordered for his toe. X-Ray requested to do X-ray in the morning as the were busy and needed to bring patient down to the x-ray unit. Informed patient of this and he was okay. HE further denied any ice, or pain medications for it, stating having the slip on shoes he got from the RN today were beneficial and helped it hurt less. In the middle of the night patient woke up and reported feeling "Discombobulated." Stating he was scared because "Someone, she, put up this thing on my bead and it scares me, this light keeps looking at me." Was able to get patient back to his room by walking with him. Patients bed rail was pulled up for use of his call light. Informed patient that it did not have to have his bedside rail up and put it down for him. Provided him with a warm blanket and then patient promptly fell back asleep. S/I, H/I: Denies A/VH: Denies VH, but reports continuing AH Sleep: Currently sleeping, see sleep assessment ADL's: Independent Group attendance: No groups this shift Were Meds taken: Yes Any med S/E: None noted or reported. Mental Status Exam Appearance: Pt has longish hair, he wears a camo baseball cap and glasses. Eye contact: Direct Behavior: Calm, friendly with peers and staff Speech: Clear, audible, loud at times. Mood: "Good" Affect: Animated Thought process: Delusional, circumstantial Thought Content: Scared to be in his room because of bed changes, worried about his stubbed toe Cognition: A/O X 4 Insight: Fair Judgment: Poor Interventions PRN's used: Trazodone Therapeutic interventions: 1:1 assessment, active listening, therapeutic conversation, medication administration/education/monitoring, behavior monitoring and intervention; reality orientation, limit setting, show of support, positive reinforcement, Q15 minute safety checks. Restraints/seclusion/emergency medication: N/A Justification of Continued Inpatient Treatment: Continued therapeutic support and medication management needed to provide stabilization, prevent decompensation, and improve coping mechanisms decreasing risk to patient and re-admittance.
[2020-02-06] MEDS: midodrine 5mg tablet PO SCH (08:15)
[2020-02-06] MEDS: pantoprazole 40mg Tablet.DR PO SCH (08:16)
[2020-02-06] MEDS: divalproex sod 250mg ER (24-hour) tablet PO SCH ×2 (08:16→21:21)
[2020-02-06] MEDS: sucralfate 1 gm tablet PO SCH ×4 (08:17→21:20)
[2020-02-06] MEDS: haloperidol 5mg tablet PO SCH ×2 (08:19→21:12)
[2020-02-06] MEDS: trihexyphenidyl 2mg tablet PO SCH ×2 (08:19→21:12)
[2020-02-06 08:47] VITALS: BP 128/87
--- NOTE | 2020-02-06 17:00 | NUR ---
Hardik Nursing progress Note: Legal hold: 5250 Report received from [facility] RN with use of SBAR Why are they here: Patient lives at a B&C in [place] who reported that patient has been posturing towards peers and has increased agitation with staff. During [facility] 5150 assessment patient expressed delusions, became agitated, guarded and verbally hostile. 5150 states that patient was deemed unable to meet his own needs and is gravely disabled. Patient was admitted to the unit at 1145. Assessment What has happened this shift: Pt was awake this morning and requested tylenol for toe pain. He is pleasant and engaging. He attended breakfast and took medications. He sat with other residents to watch a movie and later attended group. He denies SI/HI/AH/VH. Report received from CAROLIN Forrest per raphael that 5th toe is fractured. Pt states tylenol helped with toe pain. Hospitalist came to see pt and toe was denisse taped. Pt ambulates without difficulty. S/I, H/I: Denies A/VH: Denies Sleep: 4.5 hr per [facility] shift assessment ADL's: Independent Group attendance: Yes Were Meds taken: Yes Any med S/E: None noted Mental Status Exam Appearance: Clean. Showered on day shift. Wearing Unit scrubs and non skid socks. Eye contact: Direct Behavior: Socializing. Pleasant. Loud voice Speech: WNL, tangential. Mood: Good Affect: Happy, bright. Thought process: Concerned about toe Thought Content: Delusional, circumstantial Cognition: A/O X 4 Insight: Fair Judgment: Poor Interventions PRN's used: Tylenol Therapeutic interventions: 1:1 assessment, active listening, therapeutic conversation, medication administration/education/monitoring, behavior monitoring and intervention; reality orientation, limit setting, show of support, positive reinforcement, Q15 minute safety checks. Restraints/seclusion/emergency medication: N/A Justification of Continued Inpatient Treatment: Continued therapeutic support and medication management needed to provide stabilization, prevent decompensation, and improve coping mechanisms decreasing risk to patient and re-admittance.
[2020-02-06 19:00] VITALS: BP 125/89
[2020-02-06] MEDS: aripiprazole 5mg tablet PO SCH (21:12)
[2020-02-06] MEDS: traZODone 50mg tablet PO SCH (21:13)
--- NOTE | 2020-02-07 04:33 | NUR ---
Nursing progress Note: Legal hold: 5250 Report received from MARTINA Forrest with use of SBAR Why are they here: Patient lives at a [facility] in [place] who reported that patient has been posturing towards peers and has increased agitation with staff. During [facility] 5150 assessment patient expressed delusions, became agitated, guarded and verbally hostile. 5150 states that patient was deemed unable to meet his own needs and is gravely disabled. Patient was admitted to the unit at 1145. Assessment Patient is self isolating in his room. Patient is well oriented, he smiles and jokes. Patient is now medication compliant. The patient tells this curriculum writer he showered during the day, "I feel great." Patient denies S/I, H/I, or hallucinations. Patient exhibits linear thought. Patient is medication compliant. S/I, H/I: Denies. A/VH: Denies. Sleep: Will tally at 0500. ADL's: Independent Group attendance: No group on nights. Were Meds taken: Yes, patient is medication compliant. Any med S/E: None noted. Mental Status Exam Appearance: Clean and wearing scrubs. Eye contact: Direct. Behavior: Cooperative and compliant. Speech: Normal voice, rhythm and tone. Mood: Upbeat. Affect: Normal. Thought process: Feeling good, just wants to sleep. Thought Content:Delusional, I might have Parkinsons. Cognition: A/O X 4. Insight: Fair Judgment: Poor Interventions PRN's used: Tylenol Therapeutic interventions: 1:1 assessment, active listening, therapeutic conversation, medication administration/education/monitoring, behavior monitoring and intervention; reality orientation, limit setting, show of support, positive reinforcement, Q15 minute safety checks. Restraints/seclusion/emergency medication: N/A Justification of Continued Inpatient Treatment: Continued therapeutic support and medication management needed to provide stabilization, prevent decompensation, and improve coping mechanisms decreasing risk to patient and re-admittance.
[2020-02-07 08:00] VITALS: BP 118/73
[2020-02-07] MEDS: midodrine 5mg tablet PO SCH (08:15)
[2020-02-07] MEDS: trihexyphenidyl 2mg tablet PO SCH ×2 (08:15→21:43)
[2020-02-07] MEDS: divalproex sod 250mg ER (24-hour) tablet PO SCH ×2 (08:15→21:43)
[2020-02-07] MEDS: sucralfate 1 gm tablet PO SCH ×4 (08:15→21:42)
[2020-02-07] MEDS: pantoprazole 40mg Tablet.DR PO SCH (08:15)
[2020-02-07] MEDS: haloperidol 5mg tablet PO SCH ×2 (08:17→21:43)
--- NOTE | 2020-02-07 17:17 | NUR ---
Nursing progress Note: Legal hold: 5150 Report received from RN with use of SBAR Why are they here: Patient lives at a B&[facility] in [place] who reported that patient has been posturing towards peers and has increased agitation with staff. During [facility] 5150 assessment patient expressed delusions, became agitated, guarded and verbally hostile. 5150 states that patient was deemed unable to meet his own needs and is gravely disabled. Patient was admitted to the unit at 1145. Assessment What has happened this shift: Received Pt in bed sleeping w/o distress at beginning of shift. Pt reports good sleep and is cooperative with staff and others. Pt stated I need a conjugal visit, and asked often about when he was discharging. Pt ate all meals in community room and interacted with other Pts well. This RN did not observe him talking to himself, and he was able to engage in linear conversation. He is concerned about how he will get along with other residents at [facility], stating theres an pitcairn islander who wants to kill me. S/I, H/I: Denies A/VH: Denies Sleep: Napped in morning ADL's: Independent, showered yesterday Group attendance: No groups today Were meds taken: Yes Any med S/E: None reported or observed Mental Status Exam Appearance: Casual Eye contact: Direct Behavior: Cooperative Speech: Normal rate, rhythm, loud at times Mood: Mild anxiety Affect: Congruent with mood Thought process: Tangential Thought Content: Discharge Cognition: A & O 4 Insight: Poor. Judgment: Poor. Interventions PRN's used: None Therapeutic interventions: 1:1 therapeutic assessment, maintained safe therapeutic milieu, provided active listening with positive reinforcement, provided medication administration/education/monitoring as needed; Q15 safety checks. Restraints/seclusion/emergency medication: N/A Justification of Continued Inpatient Treatment: Continued therapeutic support and medication management needed to provide stabilization, prevent decompensation, and improve coping mechanisms decreasing risk to patient and re-admittance.
[2020-02-07 20:42] VITALS: BP 95/54
[2020-02-07] MEDS: aripiprazole 5mg tablet PO SCH (21:41)
[2020-02-07] MEDS: traZODone 50mg tablet PO SCH (21:44)
--- NOTE | 2020-02-08 01:59 | NUR ---
Nursing progress Note: Legal hold: 5150 Report received from Lon COE with use of SBAR Why are they here: Patient lives at a B&[facility] in [place] who reported that patient has been posturing towards peers and has increased agitation with staff. During [facility] 5150 assessment patient expressed delusions, became agitated, guarded and verbally hostile. 5150 states that patient was deemed unable to meet his own needs and is gravely disabled. Patient was admitted to the unit at 1145. Assessment What has happened this shift: Patient sleeping at beginning of shift. Awakened easily, pleasant, took all meds, then went to bathroom to void, returned back to bed to sleep. S/I, H/I: Denies A/VH: Denies Sleep: Most of the shift ADL's: Independent, Group attendance: Had dinner in the group room Were meds taken: Yes Any med S/E: None reported or observed Mental Status Exam Appearance: Casual Eye contact: Indirect Behavior: Cooperative Speech: Normal rate, rhythm Mood: pleasant Affect: Sleepy Thought process: Linear, limited Thought Content: No answer Cognition: A & O 4 Insight: Poor. Judgment: Poor. Interventions PRN's used: None Therapeutic interventions: 1:1 therapeutic assessment, maintained safe therapeutic milieu, provided active listening with positive reinforcement, provided medication administration/education/monitoring as needed; Q15 safety checks. Restraints/seclusion/emergency medication: N/A Justification of Continued Inpatient Treatment: Continued therapeutic support and medication management needed to provide stabilization, prevent decompensation, and improve coping mechanisms decreasing risk to patient and re-admittance.
[2020-02-08 08:00] VITALS: BP 105/73
[2020-02-08] MEDS: sucralfate 1 gm tablet PO SCH ×4 (08:48→20:06)
[2020-02-08] MEDS: divalproex sod 250mg ER (24-hour) tablet PO SCH ×2 (08:48→20:06)
[2020-02-08] MEDS: midodrine 5mg tablet PO SCH (08:48)
[2020-02-08] MEDS: trihexyphenidyl 2mg tablet PO SCH ×2 (08:49→20:06)
[2020-02-08] MEDS: haloperidol 5mg tablet PO SCH ×2 (08:49→20:07)
[2020-02-08] MEDS: acetaminophen 325mg tablet PO PRN (08:56)
[2020-02-08] MEDS: pantoprazole 40mg Tablet.DR PO SCH (09:02)
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
[2020-02-08] MEDS ORDERED: haloperidol 1mg tablet PO PRN (18:30)
[2020-02-08 20:00] VITALS: BP 123/78
[2020-02-08] MEDS: traZODone 50mg tablet PO SCH (20:05)
[2020-02-08] MEDS: aripiprazole 5mg tablet PO SCH (20:20)
--- NOTE | 2020-02-08 21:54 | NUR ---
Nursing progress Note: Legal hold: 5150 Report received from Lon COE with use of SBAR Why are they here: Patient lives at a B&C in [place] who reported that patient has been posturing towards peers and has increased agitation with staff. During [facility] 5150 assessment patient expressed delusions, became agitated, guarded and verbally hostile. 5150 states that patient was deemed unable to meet his own needs and is gravely disabled. Patient was admitted to the unit at 1145. Assessment What has happened this shift: Patient was seen watching tv at change of shift. pt was seen interacting appropriately with other pt's and staff. During 1:1 pt was pleasant and cooperative. when asked for his understanding as to why he is here, he stated, "I guess i shouldn't be aggressive to people anymore." Pt denies wanting to hurt others or himself at this time. Pt endorses hearing voices, stating that "they are a 2/10 now." Pt stated that "they are like a mother to me, bossing me around." S/I, H/I: Denies A/VH: endorses voices Sleep: see sleep assessment ADL's: Independent, Group attendance: none this shift Were meds taken: Yes Any med S/E: None reported or observed Mental Status Exam Appearance: dressed appropriately Eye contact: Indirect Behavior: Cooperative Speech: Normal rate, rhythm Mood: pleasant Affect: congruent Thought process: Linear, limited Thought Content: No answer Cognition: A & O 4 Insight: Poor. Judgment: Poor. Interventions PRN's used: None Therapeutic interventions: 1:1 therapeutic assessment, maintained safe therapeutic milieu, provided active listening with positive reinforcement, provided medication administration/education/monitoring as needed; Q15 safety checks. Restraints/seclusion/emergency medication: N/A Justification of Continued Inpatient Treatment: Continued therapeutic support and medication management needed to provide stabilization, prevent decompensation, and improve coping mechanisms decreasing risk to patient and re-admittance.
[2020-02-09] MEDS: hydrOXYzine 25 MG tablet PO PRN (02:08)
[2020-02-09 07:49] VITALS: BP 104/65
[2020-02-09] MEDS: divalproex sod 250mg ER (24-hour) tablet PO SCH ×2 (07:56→20:40)
[2020-02-09] MEDS: pantoprazole 40mg Tablet.DR PO SCH (07:56)
[2020-02-09] MEDS: haloperidol 5mg tablet PO SCH ×2 (07:56→20:38)
[2020-02-09] MEDS: trihexyphenidyl 2mg tablet PO SCH ×2 (07:56→20:41)
[2020-02-09] MEDS: midodrine 5mg tablet PO SCH (07:56)
[2020-02-09] MEDS: sucralfate 1 gm tablet PO SCH ×4 (07:56→20:38)
--- NOTE | 2020-02-09 11:28 | NUR ---
Reassessment: Pt continues meeting nutrient needs with 75-100% PO intake on regular diet. [facility] 02/07. No nutrition intervention warranted at this time. Will continue to follow. Rec: 1. continue regular diet 2. bowel care as needed 3. wt per rx Addendum: 02/09/20 at [address] Amended: Links added.
[2020-02-09] MEDS: acetaminophen 325mg tablet PO PRN (13:50)
--- NOTE | 2020-02-09 14:48 | NUR ---
Nursing progress Note: Legal hold: 5250 Client here for GD Report received from Polina COE with use of SBAR Why are they here: Patient lives at a B&C in [place] who reported that patient has been posturing towards peers and has increased agitation with staff. During [facility] 5150 assessment patient expressed delusions, became agitated, guarded and verbally hostile. 5150 states that patient was deemed unable to meet his own needs and is gravely disabled. Patient was admitted to the unit at 1145. Assessment What has happened this shift: Pt was up for breakfast, pt is quieter and more isolative to self than the last time this RN worked with him last week. Pt denies depression, anxiety, SI/HI/VH. Pt states that he is doing better, that the voices are better than yesterday, not much to report. Asked pt if he could remember anything the voices had said to him today. He replied, "look in the mirror." Pt stated, "I have some new scars." He pointed to his forehead. One old barely noticeable scar observed on right forehead above his eyebrow. Told pt that the scar did not look new, asked him when he got it. Pt replied, "oh around 2012, 2013." Told pt that was quite awhile ago, asked pt how he got it. Pt reported that "I was goofin' off, I held my breath and fell over, I hit my head on this wooden door. I don't know why it was on the ground but it was and I got a piece of wood jammed in there." Asked pt how his right 5th toe was doing, he replied, "it hurts." Offered pt some prn Tylenol 650 mg which he accepted at 1350. Pt rated his pain at a 3/10 before the Tylenol. S/I, H/I: Pt denies A/VH: Pt denies VH, reports he still has AH but that they are better. Sleep: Pt slept 7.5 hours per noc shift report. ADL's: Independent Group attendance: No groups today. Were meds taken: Yes Any med S/E: None noted or reported. Mental Status Exam Appearance: Pt has longish brown hair, he wears a baseball cap, a long-sleeved Superman shirt with another T-shirt over it, camouflaged pants, and socks with slides. He has facial stubble and discolored teeth. Eye contact: Good Behavior: Cooperative, quiet, spent a lot of time alone in his room looking out of the window, likes to tell stories to staff. Speech: Clear, audible, has a [place] accent. Mood: "Better" Affect: Appropriate Thought process: Circumstantial, some reality distortion. Thought Content: He is doing better, the voices are better. Cognition: A/O X 4 Insight: Poor. Judgment: Poor. Interventions PRN's used: Tylenol 650 mg Therapeutic interventions: 1:1 assessment, encouraged pt to express his thoughts and feelings, active listening, therapeutic conversation, medication administration/education/monitoring, reality oriention, positive reinforcement, Q15 min safety checks. Restraints/seclusion/emergency medication: N/A Justification of Continued Inpatient Treatment: Continued therapeutic support and medication management needed to provide stabilization, prevent decompensation, and improve coping mechanisms decreasing risk to patient and re-admittance.
[2020-02-09 19:44] VITALS: BP 99/57
[2020-02-09] MEDS: traZODone 50mg tablet PO SCH (20:37)
[2020-02-09] MEDS: aripiprazole 5mg tablet PO SCH (20:38)
--- NOTE | 2020-02-09 22:21 | NUR ---
Nursing progress Note: Legal hold: 5250 Client here for GD Report received from Lon COE with use of SBAR Why are they here: Patient lives at a B&C in [place] who reported that patient has been posturing towards peers and has increased agitation with staff. During [facility] 5150 assessment patient expressed delusions, became agitated, guarded and verbally hostile. 5150 states that patient was deemed unable to meet his own needs and is gravely disabled. Patient was admitted to the unit at 1145. Assessment What has happened this shift: Pt remained in his bed napping for duration of the shift. Pt was med compliant. Pt is pleasant and cooperative states he is doing better. S/I, H/I: Pt denies A/VH: Pt denies VH, reports he still has AH but that they are better. Sleep: Pt is napping a lot states he slept well last night ADL's: Independent Group attendance: No groups today. Were meds taken: Yes Any med S/E: None noted or reported. Mental Status Exam Appearance: Pt laying in bed wearing street clothes, adequately dressed and groomed Eye contact: Good Behavior: Cooperative, quiet, resting in his room Speech: normal rate and rhythm Mood: "Better" Affect: Appropriate Thought process: Circumstantial. Thought Content: He is doing better, the voices are better. Cognition: A/O X 4 Insight: Poor. Judgment: Poor. Interventions PRN's used: none Therapeutic interventions: 1:1 assessment, encouraged pt to express his thoughts and feelings, active listening, therapeutic conversation, medication administration/education/monitoring, reality oriention, positive reinforcement, Q15 min safety checks. Restraints/seclusion/emergency medication: N/A Justification of Continued Inpatient Treatment: Continued therapeutic support and medication management needed to provide stabilization, prevent decompensation, and improve coping mechanisms decreasing risk to patient and re-admittance.
[2020-02-10] MEDS: pantoprazole 40mg Tablet.DR PO SCH (07:11)
[2020-02-10] MEDS: sucralfate 1 gm tablet PO SCH ×4 (07:11→20:32)
[2020-02-10] MEDS: divalproex sod 250mg ER (24-hour) tablet PO SCH ×2 (07:40→20:33)
[2020-02-10] MEDS: trihexyphenidyl 2mg tablet PO SCH ×2 (07:40→20:32)
[2020-02-10] MEDS: midodrine 5mg tablet PO SCH (07:40)
[2020-02-10] MEDS: haloperidol 5mg tablet PO SCH ×2 (07:41→20:32)
[2020-02-10 08:27] VITALS: BP 111/73
--- NOTE | 2020-02-10 15:03 | NUR ---
NURSING PROGRESS NOTE Legal hold: 5250 Client here for GD Report received from Polina COE with use of SBAR Why are they here: Patient lives at a B&[facility] in [place] who reported that patient has been posturing towards peers and has increased agitation with staff. During [facility] 5150 assessment patient expressed delusions, became agitated, guarded and verbally hostile. 5150 states that patient was deemed unable to meet his own needs and is gravely disabled. Patient was admitted to the unit at 1145. Assessment What has happened this shift: Up early to group room having coffee with his peers. Calm and cooperative. Pleasant today. Isolating at times to room looking out the window and talking to himself. No c/o pain today. Denies depression or anxiety. Denies SI, HI, VH. Reports still hearing voices but "not so bad." S/I, H/I: Pt denies A/VH: AH's Sleep: napped ADL's: Independent Group attendance: No groups today. Were meds taken: Yes Any med S/E: None noted or reported. Mental Status Exam Appearance: disheveled Eye contact: Good Behavior: Cooperative, quieter Speech: Clear, loud at times Mood: bright Affect: smiling, talkative Thought process: Circumstantial Thought Content: Believes he is "doing better" Cognition: Alert Insight: Poor. Judgment: Poor. Interventions PRN's used: None Therapeutic interventions: 1:1 assessment, encouraged pt to express his thoughts and feelings, active listening, therapeutic conversation, medication administration/education/monitoring, reality oriention, positive reinforcement, Q15 min safety checks. Restraints/seclusion/emergency medication: N/A Justification of Continued Inpatient Treatment: Continued therapeutic support and medication management needed to provide stabilization, prevent decompensation, and improve coping mechanisms decreasing risk to patient and re-admittance.
[2020-02-10 20:00] VITALS: BP 136/76
[2020-02-10] MEDS: aripiprazole 5mg tablet PO SCH (20:32)
[2020-02-10] MEDS: traZODone 50mg tablet PO SCH (20:32)
--- NOTE | 2020-02-10 23:23 | NUR ---
NURSING PROGRESS NOTE Legal hold: 5250 Client here for GD Report received from Polina COE with use of SBAR Why are they here: Patient lives at a B&C in [place] who reported that patient has been posturing towards peers and has increased agitation with staff. During [facility] 5150 assessment patient expressed delusions, became agitated, guarded and verbally hostile. 5150 states that patient was deemed unable to meet his own needs and is gravely disabled. Patient was admitted to the unit at 1145. Assessment What has happened this shift: pt was sitting in a chair in his room looking out the window at change of shift. Pt states he had a bad day and doesnt want to come out of his room. 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 He in animated and pleasant while talking about helping and states he would need to go to school to learn to use a forklift. Pt later came to group room for snacks but isolated to himself for duration of shift. Pt is pleasant and med compliant during med pass. S/I, H/I: Pt denies A/VH: AH's "yes but theyre not bad' Sleep: napped ADL's: Independent Group attendance: attended snack time in group room Were meds taken: Yes Any med S/E: None noted or reported. Mental Status Exam Appearance: unkempt, long hair wearing ball cap and street clothes, adequately dressed Eye contact: Good Behavior: Cooperative, quiet Speech: Clear Mood: bright Affect: smiling, talkative Thought process: Circumstantial Thought Content: talking about getting a job Cognition: Alert Insight: Poor. Judgment: Poor. Interventions PRN's used: None Therapeutic interventions: 1:1 assessment, encouraged pt to express his thoughts and feelings, active listening, therapeutic conversation, medication administration/education/monitoring, reality oriention, positive reinforcement, Q15 min safety checks. Restraints/seclusion/emergency medication: N/A Justification of Continued Inpatient Treatment: Continued therapeutic support and medication management needed to provide stabilization, prevent decompensation, and improve coping mechanisms decreasing risk to patient and re-admittance.
[2020-02-11] MEDS: pantoprazole 40mg Tablet.DR PO SCH (07:11)
[2020-02-11] MEDS: sucralfate 1 gm tablet PO SCH ×4 (07:11→20:02)
[2020-02-11] MEDS: trihexyphenidyl 2mg tablet PO SCH ×2 (07:39→20:02)
[2020-02-11] MEDS: midodrine 5mg tablet PO SCH (07:40)
[2020-02-11] MEDS: divalproex sod 250mg ER (24-hour) tablet PO SCH ×2 (07:40→20:02)
[2020-02-11] MEDS: haloperidol 5mg tablet PO SCH ×2 (07:40→20:02)
[2020-02-11 08:00] VITALS: BP 129/82
[2020-02-11] MEDS: acetaminophen 325mg tablet PO PRN (10:29)
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
[2020-02-11 20:00] VITALS: BP 128/72
[2020-02-11] MEDS: traZODone 50mg tablet PO SCH (20:02)
[2020-02-11] MEDS: aripiprazole 5mg tablet PO SCH (20:03)
--- NOTE | 2020-02-11 22:25 | NUR ---
NURSING PROGRESS NOTE Legal hold: 5250 Client here for GD Report received from Polina COE with use of SBAR Why are they here: Patient lives at a [facility] in [place] who reported that patient has been posturing towards peers and has increased agitation with staff. During [facility] 5150 assessment patient expressed delusions, became agitated, guarded and verbally hostile. 5150 states that patient was deemed unable to meet his own needs and is gravely disabled. Patient was admitted to the unit at 1145. Assessment What has happened this shift: Pt was sitting in a chair in his room at change of shift. He states his day was good but states his roommate yells at him a lot so he is glad to be going home "tommorow". Pt is sitting with his feet elevated and states he is wondering why his doctor didnt give him a boot for his foot. He said he is sitting in his room watching the traffic because of the quarantine. Pt is calm cooperative reports sleeping well at night and meds are working good. S/I, H/I: Pt denies A/VH: AH's Sleep: napped ADL's: Independent Group attendance: No groups today. Were meds taken: Yes Any med S/E: None noted or reported. Mental Status Exam Appearance: unkempt, wearing street clothes Eye contact: Good Behavior: Cooperative, sitting alone calm Speech: Clear, Mood: Happy Affect: smiling, talkative Thought process: Circumstantial Thought Content: delusional Cognition: Alert Insight: Poor. Judgment: Poor. Interventions PRN's used: Tylenol Therapeutic interventions: 1:1 assessment, encouraged pt to express his thoughts and feelings, active listening, therapeutic conversation, medication administration/education/monitoring, reality oriention, positive reinforcement, Q15 min safety checks. Restraints/seclusion/emergency medication: N/A Justification of Continued Inpatient Treatment: Continued therapeutic support and medication management needed to provide stabilization, prevent decompensation, and improve coping mechanisms decreasing risk to patient and re-admittance.f
[2020-02-12] MEDS: acetaminophen 325mg tablet PO PRN (05:01)
[2020-02-12] MEDS: haloperidol 5mg tablet PO SCH (07:45)
[2020-02-12] MEDS: midodrine 5mg tablet PO SCH (07:45)
[2020-02-12] MEDS: sucralfate 1 gm tablet PO SCH ×2 (07:45→12:34)
[2020-02-12] MEDS: divalproex sod 250mg ER (24-hour) tablet PO SCH (07:45)
[2020-02-12] MEDS: trihexyphenidyl 2mg tablet PO SCH (07:45)
[2020-02-12] MEDS: pantoprazole 40mg Tablet.DR PO SCH (07:45)
[2020-02-12 08:00] VITALS: BP 125/67
[2020-02-12] MEDS ORDERED: DIVA250T8 PO ×2 (09:09)
[2020-02-12] MEDS ORDERED: MIDO5TAB4 PO (09:09)
[2020-02-12] MEDS ORDERED: SUCR1TAB PO (09:09)
[2020-02-12] MEDS ORDERED: TRAZ-251 PO (09:09)
[2020-02-12] MEDS ORDERED: TRIH2TAB3 PO (09:09)
[2020-02-12] MEDS ORDERED: HALO5TAB PO (09:09)
[2020-02-12] MEDS ORDERED: OMEP20TA23 PO (09:09)
[2020-02-12] MEDS ORDERED: HALO1TAB PO (09:09)
[2020-02-12] MEDS ORDERED: ARIP5TAB60 PO (09:09)
--- NOTE | 2020-02-12 10:51 | NUR ---
NURSING PROGRESS NOTE Legal hold: 5250 Client here for GD Report received from Nita MACK with use of SBAR Why are they here: Patient lives at a [facility] in [place] who reported that patient has been posturing towards peers and has increased agitation with staff. During [facility] 5150 assessment patient expressed delusions, became agitated, guarded and verbally hostile. 5150 states that patient was deemed unable to meet his own needs and is gravely disabled. Patient was admitted to the unit at 1145. Assessment What has happened this shift: Pt denies depression, SI/HI/VH. Pt was up waiting for breakfast in the community room this morning. 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 Pt replied, "no, at the [facility] where I live." Reminded pt that he lives at [facility]. Pt stated, "yeah that's the [facility]." Pt continues to be delusional. Observed pt sitting in his room in a chair looking out the window and talking to himself after breakfast. Pt stated that he was talking to the voices. Asked pt what the voices were saying. Pt replied that the didn't want to talk about it. S/I, H/I: Pt denies A/VH: +AH, denies VH Sleep: Pt slept 8.5 hours per noc shift report. ADL's: Independent Group attendance: No groups today Were meds taken: Yes Any med S/E: None noted or reported. Mental Status Exam Appearance: Pt is a tall thin man with stubble,longish hair wearing a baseball cap, glasses, a t-shirt over a long-sleeved shirt, and camo pants. Eye contact: Good Behavior: Cooperative, hyperverbal, responding to internal stimuli Speech: Clear, audible, talkative Mood: Good Affect: Calm, appropriate Thought process: Delusional, circumstantial Thought Content: Believes he is being discharged soon, his job at [facility] [employer] is to watch the back door. Cognition: A/O X 4 Insight: Fair Judgment: Fair Interventions PRN's used: None Therapeutic interventions: 1:1 assessment, encouraged pt to express his thoughts and feelings, active listening, therapeutic conversation, behavior monitoring, medication administration/education/monitoring, reality orientation, positive reinforcement, Q15 min safety checks. Restraints/seclusion/emergency medication: N/A Justification of Continued Inpatient Treatment: Continued therapeutic support and medication management needed to provide stabilization, prevent decompensation, and improve coping mechanisms decreasing risk to patient and re-admittance. Plan is for pt to return to [facility].
--- NOTE | 2020-02-12 14:00 | NUR ---
DISCHARGE NOTE The patient was discharged back to [facility]. He left with all belongings, medications and instructions. He denies SI,HI. He was picked up by [facility] team and transported home.
[2020-02-27] MEDS ORDERED: aripiprazole 400mg suspension ER syringe IM SCH (15:55)
[2020-02-27] MEDS ORDERED: paliperidone palmitate inj 234 MG/1.5 ML SYRINGE IM SCH (15:55)
== END 2020-02-12 14:00 | disposition short-term general hospital (02) | DRG 885 ==
LOC: ADULT MH 10:49
PROVIDERS: ADMIT Psychiatry & Neurology Psychiatry; ATTEND Psychiatry & Neurology Psychiatry
DX: F25.0 Schizoaffective disorder, bipolar type (principal); K21.9 Gastro-esophageal reflux disease without esophagitis; I95.9 Hypotension, unspecified; D64.9 Anemia, unspecified; W22.8XXA Striking against or struck by other objects, initial encounter; S92.912A Unspecified fracture of left toe(s), initial encounter for closed fracture; D86.9 Sarcoidosis, unspecified; Z95.5 Presence of coronary angioplasty implant and graft; Z79.899 Other long term (current) drug therapy; Y92.89 Other specified places as the place of occurrence of the external cause
CPT/HCPCS: 36415; 73660; 80061; 80164; 83036; 85025; 87081; 87502; 87503; 93005; 99285; Z7610

== ENCOUNTER 2020-02-22 13:27 | Emergency (ER) | payer MEDICARE, MEDICAID ==
[~2020-02-22] VITALS: Ht 185.4 cm; Wt 86.0 kg
[~2020-02-22 13:27] MED LIST changes: -ARIP20TA5 PO; +ARIP400S3 IM; +ARIP5TAB60 PO; -BENZ1TAB7 PO; -DIPH-423 PO; +DIVA250T8 PO; -FLUO20CA39 PO; -HAL5T PO; +HALO1TAB PO; +HALO5TAB PO; -IBUP-1984 PO; -LORA1TAB PO; -LURA80TA PO; +MIDO5TAB4 PO; -OLAN2.5T3 PO; +OMEP20TA23 PO; -OXCA600T25 PO; +SUCR1TAB PO; +TRAZ-251 PO; +TRIH2TAB3 PO
[2020-02-22] MEDS ORDERED: DIVA500T9 PO ×2 (13:38)
[2020-02-22] MEDS ORDERED: HALO5TAB PO (13:38)
[2020-02-22] MEDS ORDERED: SUCR1TAB PO (13:38)
[2020-02-22] MEDS ORDERED: HALO10TA13 PO (13:38)
[2020-02-22] MEDS ORDERED: OMEP-50 PO (13:38)
[2020-02-22] MEDS ORDERED: ARIP15TA8 PO (13:38)
[2020-02-22] MEDS ORDERED: TRIH5TAB2 PO (13:38)
[2020-02-22] MEDS ORDERED: TRAZ-256 PO (13:38)
[2020-02-22] MEDS ORDERED: MIDO2.5T14 PO (13:38)
[2020-02-22 14:40] LABS: BASOPHILS % (AUTO) 0.8 % (0-1); EOSINOPHILS # (AUTO) 0.3 X10'3 (0-0.9); EOSINOPHILS % (AUTO) 8.1 % (0-6); LYMPHOCYTES # (AUTO) 1.4 X10'3 (1.1-4.8); LYMPHOCYTES % (AUTO) 34.1 % (21-51); MEAN CORPUSCULAR HEMOGLOBIN 32.8 PG (27.0-31.0); MEAN CORPUSCULAR HGB CONC 33.3 g/dL (33.0-36.5); MEAN CORPUSCULAR VOLUME 98.4 FL (78-98); MEAN PLATELET VOLUME 7.1 FL (7.4-10.4); MONOCYTES # (AUTO) 0.5 X10'3 (0-0.9); MONOCYTES % (AUTO) 11.4 % (2-12); NEUTROPHILS # (AUTO) 1.8 X10'3 (1.8-7.7); NEUTROPHILS % (AUTO) 45.6 % (42-75); PLATELET COUNT 156 X10'3 (140-440); RED BLOOD COUNT 3.66 X10'6 (4.70-6.10); RED CELL DISTRIBUTION WIDTH 14.5 % (11.5-14.5)
[2020-02-22 14:55] LABS: ALANINE AMINOTRANSFERASE 38 U/L (12-78); ALBUMIN 3.5 G/DL (3.4-5.0); ALBUMIN/GLOBULIN RATIO 1.2 (1.1-1.5); ALKALINE PHOSPHATASE 101 IU/L (46-116); ANION GAP 3 (8-16); ASPARTATE AMINO TRANSFERASE 23 U/L (10-37); BILIRUBIN,TOTAL 0.3 MG/DL (0.1-1.0); BLOOD UREA NITROGEN 12 MG/DL (7-18); BUN/CREATININE RATIO 11.7 (5.4-32.0); CALCIUM 9.1 MG/DL (8.5-10.1); CHLORIDE 105 MMOL/L (99-107); CREATININE 1.03 MG/DL (0.60-1.10); ETHANOL < 0.010 GM/DL (0.0-0.010); GLUCOSE 93 MG/DL (70-104); POTASSIUM 3.7 MMOL/L (3.5-5.1); SODIUM 140 MMOL/L (135-145); TOTAL CARBON DIOXIDE 32.3 MMOL/L (24-32); TOTAL PROTEIN 6.4 G/DL (6.4-8.2); eGFR 75 ML/MIN
[2020-02-22 17:29] LABS: CLARITY,URINE CLEAR (Clear); COLOR,URINE STRAW (Yellow); GLUCOSE, URINE NEGATIVE (Neg); KETONES,URINE NEGATIVE (Neg); LEUKOCYTE ESTERASE ,URINE NEGATIVE (Neg); NITRITES, URINE NEGATIVE (Neg); OCCULT BLOOD,URINE NEGATIVE (Neg); PH,URINE 6.5 (4.8-8.0); PROTEIN,URINE NEGATIVE (Neg); UA COLLECTION TYPE CLN CATCH MIDSTREAM; UROBILINOGEN,URINE 0.2 E.U/dL (0.2-1.0)
[2020-02-22 17:35] LABS: URINE AMPHETAMINE SCREEN NEGATIVE (Neg); URINE BARBITUATE SCREEN NEGATIVE (Neg); URINE BENZODIAZEPINES SCREEN NEGATIVE (Neg); URINE CANNABINOID SCREEN NEGATIVE (Neg); URINE COCAINE SCREEN NEGATIVE (Neg); URINE METHADONE SCREEN NEGATIVE (Neg); URINE OPIATE SCREEN NEGATIVE (Neg); URINE PHENCYCLIDINE SCREEN NEGATIVE (Neg)
--- NOTE | 2020-02-22 19:46 | NUR ---
Pt brought to ER overflow accompanied by staff. Pt is pleasant and cooperatvie
[2020-02-22 19:47] VITALS: BP 106/66
[2020-02-22] MEDS ORDERED: traZODone 50mg tablet PO SCH (21:00)
[2020-02-22] MEDS ORDERED: ARIPIPRAZOLE 15 MG TABLET PO SCH (21:00)
[2020-02-22] MEDS ORDERED: sucralfate 1 gm tablet PO SCH (21:00)
[2020-02-22] MEDS ORDERED: divalproex sod 250mg ER (24-hour) tablet PO SCH (21:00)
[2020-02-23] MEDS ORDERED: midodrine tablet 2.5 MG TABLET PO SCH (08:00)
[2020-02-23] MEDS ORDERED: haloperidol 5mg tablet PO SCH ×2 (08:00)
[2020-02-23] MEDS ORDERED: divalproex sod 250mg ER (24-hour) tablet PO SCH (08:00)
[2020-02-23] MEDS ORDERED: trihexyphenidyl HCL 5 MG tablet PO SCH (08:00)
[2020-02-23] MEDS ORDERED: pantoprazole 40mg Tablet.DR PO SCH (08:00)
== END 2020-02-22 19:53 ==
LOC: ER 13:29
DX: R45.851 Suicidal ideations (principal); F20.9 Schizophrenia, unspecified; R19.7 Diarrhea, unspecified; F15.90 Other stimulant use, unspecified, uncomplicated; Z60.2 Problems related to living alone; Z59.0 Homelessness; Z72.89 Other problems related to lifestyle; Z79.899 Other long term (current) drug therapy
CPT/HCPCS: 36415; 80053; 80305; 80320; 81003; 85025; 99285

== ENCOUNTER 2020-06-01 20:18 | Inpatient (IN) | payer MEDICARE, MEDICAID ==
[~2020-06-01] VITALS: Ht 185.4 cm; Wt 94.7 kg
[~2020-06-01 20:18] MED LIST changes: -ARIP400S3 IM; -ARIP5TAB60 PO; -DIVA250T8 PO; +DIVA500T9 PO; +HALO10TA13 PO; -HALO1TAB PO; +MIDO2.5T14 PO; -OMEP20TA23 PO; +PANT40TA54 PO; -SUCR1TAB PO; -TRAZ-251 PO; +TRAZ-256 PO
[2020-06-01] MEDS ORDERED: magnesium hydroxide 30ml (MOM) UD suspension PO PRN (20:25)
[2020-06-01] MEDS ORDERED: mag hydrox/Alum hydrox/simeth 30ml oral suspension PO PRN (20:25)
[2020-06-01] MEDS ORDERED: loperamide 2mg capsule PO PRN (20:25)
[2020-06-01] MEDS ORDERED: HALO20TA7 PO (21:47)
[2020-06-01] MEDS ORDERED: QUET-1 PO ×2 (21:47)
[2020-06-01] MEDS ORDERED: quetiapine 100mg tablet PO PRN (22:35)
[2020-06-01] MEDS ORDERED: quetiapine 100mg tablet PO ONE (22:40)
[2020-06-01] MEDS: trihexyphenidyl HCL 5 MG tablet PO SCH (22:55)
[2020-06-01] MEDS: divalproex sod 250mg ER (24-hour) tablet PO SCH (22:56)
[2020-06-01] MEDS: haloperidol 5mg tablet PO SCH (22:57)
--- NOTE | 2020-06-01 23:37 | NUR ---
ADMIT NOTE: Legal hold: LPS Client on involuntary status for GD Report received from Vinod RN with use of SBAR. Why are they here: Pt decompensated at board and care; increasingly agitated with bizarre, paranoid and delusional statements. Access center assessed and brought to ED for evaluation and stabilization. Assessment What has happened this shift: Patient was admitted to [facility] at 2020. Patient was accompanied by and ATIF Leonard. Patient showered and personal belongings were inventoried. Pt cooperative with majority of the admission process but paranoid and would not sign paperwork nor allow for vitals to be obtained. Pt compliant with medications and went to sleep shortly after arriving to unit. Medical Hx (per chart): Sarcoidosis Poor Dentition Right shoulder surgery Drug Hx (per chart): MJ- 16yo. smoked on occas. Last time smoked about 2y ago 'I've shot up and smoked meth before' Haven't drank alcohol in a long time. Magic Mushrooms once PCP and LSD once. S/I, H/I: Denies Both A/VH: Denies currently, but observed to be responding to internal stimuli Sleep: See Sleep Assessment ADL's: Independent. Showered this evening. Group attendance: N/A Were meds taken: N/A Any med S/E: None observed or reported Mental Status Exam Appearance: Unruly hair and holcomb, clean, in unit scrubs and nonskid socks Eye contact: Good Behavior: Pleasant, resistive to certain aspects of the admit process Speech: Soft, Slightly slurred, loud Mood: Im alright Affect: Flat with occasional brightening Thought process: Paranoid, delusional Thought Content: happy to be here, upset with previous residence Cognition: A&Ox4 Insight: Poor Judgment: Poor Interventions PRN's used: None Therapeutic interventions: 1:1 assessment, therapeutic conversation with positive feedback, unit orientation, q 15 checks Restraints/seclusion/emergency medication: N/A Justification of Continued Inpatient Treatment: Patient needs interruption of current crisis with adjustment of medication in a safe and therapeutic environment.
[2020-06-02] MEDS: pantoprazole 40mg Tablet.DR PO SCH (08:03)
[2020-06-02] MEDS: trihexyphenidyl HCL 5 MG tablet PO SCH ×2 (08:03→20:33)
[2020-06-02] MEDS: divalproex sod 250mg ER (24-hour) tablet PO SCH ×2 (08:03→20:33)
[2020-06-02 08:13] VITALS: BP 116/69
--- NOTE | 2020-06-02 13:32 | NUR ---
Nursing Progress Note: Legal hold: LPS Client on involuntary status for GD Report received from Polina MACK with use of SBAR. Why are they here: Pt decompensated at board and care; increasingly agitated with bizarre, paranoid and delusional statements. Access center assessed and brought to ED for evaluation and stabilization. Assessment What has happened this shift: Received pt asleep in bed. Pt awoke at 0800 for breakfast and he took his medication. Pt did question what the medications were. Pt denies S.I./H.I. but did endorse auditory hallucinations, at times. He did not expand upon content of hallucinations. After breakfast, pt returned to his bed and remained asleep or resting in bed until lunch. Pt did not initiate interaction with others. Pt bx was calm and isolative with flat affect. S/I, H/I: Denies Both A/VH: Yes, at times - observed to be responding to internal stimuli Sleep: ADL's: Independent. Group attendance: N/A Were meds taken: yes Any med S/E: None observed or reported Mental Status Exam Appearance: Unruly hair and holcomb, clean, in unit scrubs and nonskid socks Eye contact: Good Behavior: Pleasant, resistive to certain aspects of the admit process Speech: Soft, Slightly slurred, loud Mood: slightly depressed Affect: Flat with occasional brightening Thought process: Paranoid, delusional Thought Content: happy to be here, upset with previous residence Cognition: A&Ox4 Insight: Poor Judgment: Poor Interventions PRN's used: None Therapeutic interventions: Maintained a safe and supportive environment, provided clear and simple instructions, attempted to orient to reality, monitored behavior and need for intervention, provided redirection as needed, encouraged nutrition intake, and maintained Q 15min safety checks. Restraints/seclusion/emergency medication: N/A Justification of Continued Inpatient Treatment: Patient needs interruption of current crisis with adjustment of medication in a safe and therapeutic environment.
[2020-06-02 20:01] VITALS: BP 104/62
[2020-06-02] MEDS: haloperidol 5mg tablet PO SCH (20:33)
[2020-06-02] MEDS ORDERED: quetiapine 100mg tablet PO SCH (21:00)
--- NOTE | 2020-06-03 01:51 | NUR ---
Nursing Progress Note: Hardik Legal hold: LPS Client on involuntary status for GD Report received from Lon MACK with use of SBAR. Why are they here: Pt decompensated at board and care; increasingly agitated with bizarre, paranoid and delusional statements. Access center assessed and brought to ED for evaluation and stabilization. Assessment What has happened this shift: Pt was in his room resting during shift change. States he is doing alright. Pt rates his anxiety a 3/10, he states its not high enough to need any mediation for it. He endorses auditory and visual hallucinations. He states that he was seeing some weird creep popping out of the carpet. He doesnt elaborate on the voices but states that as of right now he is not hearing or seeing anything out of the ordinary. He states that he was having problems at his boarding care where he was at and thats why he ended up here. Pt was cooperative during 1:1 physical assessment and took all his meds. He does make some delusional statements about other patients but stays calm for the most part and appropriately interacts with peers. He retires to bed after he received his HS medications. S/I, H/I: Denies Both A/VH: Endorses Both Sleep: Currently sleeping, see sleep assessment for total hours ADL's: Independent. Group attendance: No groups during night cleaner Were meds taken: yes Any med S/E: None observed or reported Mental Status Exam Appearance: Somewhat disheveled, wearing personal clothing, unkempt hair Eye contact: Good, direct Behavior: Cooperative, pleasant, calm, somewhat isolative Speech: Soft, delayed answers, loud Mood: "I'm doing alright" appears anxious and depressed, some paranoia Affect: Constricted Thought process: Somewhat disorganized and delusional Thought Content: Previous issues with his care at [facility] care, medication Cognition: A&Ox4 Insight: Poor Judgment: Poor Interventions PRN's used: None Therapeutic interventions: Maintained a safe and supportive environment, provided clear and simple instructions, attempted to orient to reality, monitored behavior and need for intervention, provided redirection as needed, encouraged nutrition intake, and maintained Q 15min safety checks. Restraints/seclusion/emergency medication: N/A Justification of Continued Inpatient Treatment: Patient needs interruption of current crisis with adjustment of medication in a safe and therapeutic environment.
[2020-06-03] MEDS: divalproex sod 250mg ER (24-hour) tablet PO SCH ×2 (07:55→20:13)
[2020-06-03] MEDS: trihexyphenidyl HCL 5 MG tablet PO SCH ×2 (07:55→20:13)
[2020-06-03] MEDS: pantoprazole 40mg Tablet.DR PO SCH (07:55)
[2020-06-03 08:01] VITALS: BP 111/70
--- NOTE | 2020-06-03 09:53 | NUR ---
PSYCHOSOCIAL ASSESSMENT Hardik is a 54 y/o single male with a long history of mental health treatment including conservatorship. He most recently was residing at [facility] in [place]. This is Hardik's 4th admission since January. He was previously living at [facility]. He was discharged to [facility] upon his last admission. He was decompensated again and was making bizarre statements and threatening others. Hardik was recently conserved again during his last admission in February. He is in need of a higher level of care than a [facility]. LEXIE Squires Addendum: 06/03/20 at 0953 by Chata Elmore Amended: Links added.
--- NOTE | 2020-06-03 15:25 | NUR ---
Nursing Progress Note: Legal hold: LPS Client on involuntary status for GD Report received from Veronica Jones RN with use of SBAR. Why are they here: Pt decompensated at board and care; increasingly agitated with bizarre, paranoid and delusional statements. Access center assessed and brought to ED for evaluation and stabilization. Assessment What has happened this shift: Received pt asleep in bed. Pt awoke at 0800 for breakfast and he took his medication. Pt returned to sleep after breakfast and refused group. Pt did voice delusional thought content when he voice his belief that he caused Covid-19. Pt stated he went camping at age 13 with his dad and woke up with mosquito eaters all over him and later passed it on to his sexual partners and thats how it all started. Pt resistant to reassurance that he did not cause Covid-19. S/I, H/I: Denies Both A/VH: Yes, at times - observed to be responding to internal stimuli Sleep: ADL's: Independent. Group attendance: N/A Were meds taken: yes Any med S/E: None observed or reported Mental Status Exam Appearance: Unruly hair and holcomb, clean, in unit scrubs and nonskid socks Eye contact: Good Behavior: Pleasant, resistive to certain aspects of the admit process Speech: Soft, Slightly slurred, loud Mood: slightly depressed Affect: Flat with occasional brightening Thought process: Paranoid, delusional Thought Content: happy to be here, upset with previous residence Cognition: A&Ox4 Insight: Poor Judgment: Poor Interventions PRN's used: None Therapeutic interventions: Maintained a safe and supportive environment, provided clear and simple instructions, attempted to orient to reality, monitored behavior and need for intervention, provided redirection as needed, encouraged nutrition intake, and maintained Q 15min safety checks. Restraints/seclusion/emergency medication: N/A Justification of Continued Inpatient Treatment: Patient needs interruption of current crisis with adjustment of medication in a safe and therapeutic environment.
[2020-06-03] MEDS: LORazepam 1 MG tablet PO PRN (19:06)
[2020-06-03 19:48] VITALS: BP 113/68
[2020-06-03] MEDS: haloperidol 5mg tablet PO SCH (20:13)
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
[2020-06-04] MEDS: haloperidol 5mg tablet PO SCH ×2 (07:35→20:52)
[2020-06-04] MEDS: trihexyphenidyl HCL 5 MG tablet PO SCH ×2 (07:35→20:52)
[2020-06-04] MEDS: divalproex sod 250mg ER (24-hour) tablet PO SCH ×2 (07:36→20:52)
[2020-06-04] MEDS: pantoprazole 40mg Tablet.DR PO SCH (07:36)
[2020-06-04 08:00] VITALS: BP 102/69
[2020-06-04] MEDS: LORazepam 1 MG tablet PO PRN (12:44)
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
[2020-06-04 19:53] VITALS: BP 92/51
--- NOTE | 2020-06-05 00:17 | NUR ---
Nursing Progress Note: Hardik Legal hold: LPS Client on involuntary status for GD Report received from Lon MACK with use of SBAR. Why are they here: Pt decompensated at board and care; increasingly agitated with bizarre, paranoid and delusional statements. Access center assessed and brought to ED for evaluation and stabilization. Assessment What has happened this shift: Pt was sleeping in his room during shift change. Respirations are even and unlabored. Pt woke up for snack and was observed interacting appropriately with other staff and patients. He was cooperative during 1:1 physical assessment and took all his HS meds. He did question why there wasnt Seroquel with his meds and this RN informed him that it had been discontinued but if needed he could get it as prn. He states that the reason he probably wasnt getting it was because it made him sleepy as he slept for most of the day. Pt denies any A/VH and did not make any delusional statements this evening. There was no inappropriate or unsafe behavior exhibited by pt this evening. He did eventually retired to bed without the need of more medication. S/I, H/I: Denies A/VH: Denies and was not observed responding to internal stimuli Sleep: Currently sleeping, see sleep assessment for total hours ADL's: Independent. Group attendance: No groups during public service officer Were meds taken: yes Any med S/E: None observed or reported Mental Status Exam Appearance: Somewhat disheveled, wearing personal clothing, black suit jacket at times, unkempt hair Eye contact: Good, direct Behavior: Cooperative, pleasant, somewhat guarded, pacing Speech: Loud, delayed, hyperverbal at times Mood: Anxious, appears depressed Affect: Blunted Thought process: Somewhat disorganized and delusional Thought Content: Medication, Snack, afraid he wont be able to sleep at night Cognition: A&Ox3 Insight: Poor Judgment: Poor Interventions PRN's used: None Therapeutic interventions: Maintained a safe and supportive environment, provided clear and simple instructions, attempted to orient to reality, monitored behavior and need for intervention, provided redirection as needed, encouraged nutrition intake, and maintained Q 15min safety checks. Restraints/seclusion/emergency medication: N/A Justification of Continued Inpatient Treatment: Patient needs interruption of current crisis with adjustment of medication in a safe and therapeutic environment.
[2020-06-05 08:00] VITALS: BP 103/76
[2020-06-05] MEDS: pantoprazole 40mg Tablet.DR PO SCH (08:01)
[2020-06-05] MEDS: trihexyphenidyl HCL 5 MG tablet PO SCH ×2 (08:01→20:07)
[2020-06-05] MEDS: haloperidol 5mg tablet PO SCH ×2 (08:02→20:08)
[2020-06-05] MEDS: divalproex sod 250mg ER (24-hour) tablet PO SCH ×2 (08:02→20:07)
[2020-06-05] MEDS: LORazepam 1 MG tablet PO PRN (09:05)
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
[2020-06-05] MEDS: traZODone 50mg tablet PO PRN (20:08)
[2020-06-05 20:52] VITALS: BP 121/80
--- NOTE | 2020-06-06 00:38 | NUR ---
Nursing Progress Note: Legal hold: LPS Client on involuntary status for GD Report received from Lon MACK with use of SBAR. Why are they here: Pt decompensated at board and care; increasingly agitated with bizarre, paranoid and delusional statements. Access center assessed and brought to ED for evaluation and stabilization. Assessment What has happened this shift: Pt up on unit at start of shift socializing with other pts. Pt very talkative somewhat tangential. Pt talked about parents "The crossed me off their to do list" Talked about being in [place] "they would not listen to me about my meds" Described the events that led up to his hospitalization "I became boisterous and was mouthing off" Said he does have auditory and visual hallucinations "sometimes I see eyeballs in the bravo but they won't look at me because the voices tell them not too." Pt volunteered that he is protecting the president though he was unable to provide specifics "I am like [place] I have the world on my shoulders." None of what the pt talks about seems to upset him in any way. He continually smiles and laughs frequently and sometimes inappropriately. S/I, H/I: Pt denies A/VH: yes, audio hallucinations and visual Sleep: asleep at this time ADL's: Independent. Group attendance: NA Were meds taken: Yes Any med S/E: None noted or reported Mental Status Exam Appearance: Tall, pale man, messy hair wearing personal clothing Eye contact: Good Behavior: Socializes with peers, watches TV, responds to internal stimuli. Speech: Speech clear, audible. Mood: Bright Affect: Smiles and laughs inappropriately at times Thought process: Delusional Thought Content: He is protecting the President Cognition: A/O X 3, disoriented to situation. Insight: Poor Judgment: Poor Interventions PRN's used: Trazodone Therapeutic interventions: 1:1 assessment,provided clear and simple instructions, active listening, therapeutic conversation, medication administration/education/monitoring, behavior monitoring and intervention; reality orientation, limit setting, verbal de-escalation, redirection, positive reinforcement, Q 15 minute safety checks. Restraints/seclusion/emergency medication: N/A Justification of Continued Inpatient Treatment: Patient needs interruption of current crisis with adjustment of medication in a safe and therapeutic environment.
[2020-06-06] MEDS: traZODone 50mg tablet PO PRN ×2 (01:40→20:02)
[2020-06-06 08:00] VITALS: BP 134/85
[2020-06-06] MEDS: pantoprazole 40mg Tablet.DR PO SCH (08:12)
[2020-06-06] MEDS: divalproex sod 250mg ER (24-hour) tablet PO SCH ×2 (08:13→20:01)
[2020-06-06] MEDS: haloperidol 5mg tablet PO SCH ×3 (08:13→20:02)
[2020-06-06] MEDS: trihexyphenidyl HCL 5 MG tablet PO SCH ×2 (08:13→20:43)
--- NOTE | 2020-06-06 10:00 | NUR ---
Group Therapy: Process Group This Clinicians goal for this process group were as follows: (1) Ask scaling questions about Patients current anxiety, depression, and irritability symptoms as a check-in. (2) Provide psychoeducation on differences between passive, passive-aggressive, assertive, and aggressive forms of communication. (3) Provide psychoeducation on fair fighting rules to illustrate principles of assertive communication. (4) Process Patients thoughts and reflections on this topic within the group milieu. Patient identified experiencing the following levels of anxiety, depression, and anger/irritability while present in the group milieu. Anxiety: 05/04 Depression: 05/04 Anger/irritability: 05/04 Patient presented as open and cooperative within the group milieu. Patient was dressed in nondescript personal clothing that were appropriate within the milieu--a white t-shirt, and black pants. Patient's thought content, was clear and concrete. Patient's thought process was clear, and concrete, but was frequently marked by tangential thinking, and flight of ideas. Patient presented as verbally engaged AEB frequently making comments on the topic of adaptive communication. However, Patient's comments often were disruptive, or quite off-topic. However, this Clinician was usually able to redirect Patient with verbal redirects. This Clinician felt little need to address Patient's off topic comments as he presented in a jovial nature and was not a disruption to the other patients, per this Clinician's impression. Angelo Marks MA, LEXIE Addendum: 06/06/20 at 1126 by Angelo Marks SS Amended: Links added.
--- NOTE | 2020-06-06 11:26 | NUR ---
Nursing Progress Note: Legal hold: LPS Client on involuntary status for GD Report received from Veronica Da Silva RN with use of SBAR. Why are they here: Pt decompensated at board and care; increasingly agitated with bizarre, paranoid and delusional statements. Access center assessed and brought to ED for evaluation and stabilization. Assessment What has happened this shift: Patient was up in the [place] socializing with staff at change of shift. He is pleasant and cooperative with care and takes his medications as ordered without incident. He states that he is here because his medications aren't working and "I need a break". Patient appears happily psychotic and responding to internal stimuli. Patient denies suicidal ideation and homicidal ideation. Patient attended group and was invested in the process, raising his hand and participating throughout. S/I, H/I: Pt denies A/VH: yes, audio hallucinations Sleep: No naps today ADL's: Independent. Group attendance: yes Were meds taken: Yes Any med S/E: None noted or reported Mental Status Exam Appearance: wearing personal clothing Eye contact: Good Behavior: Paces the unit, socializes with select peers, watches TV, responds to internal stimuli. Speech: Speaks in a slow drawl, clear, audible, loud at times. Mood: Anxious, euthymic Affect: Pleasant, congruent with mood Thought process: Delusional Thought Content: delusions Cognition: A/O X 3, disoriented to situation. Insight: Poor Judgment: Poor Interventions PRN's used: Ativan Therapeutic interventions: 1:1 assessment,provided clear and simple instructions, active listening, therapeutic conversation, medication administration/education/monitoring, behavior monitoring and intervention; reality orientation, limit setting, verbal de-escalation, redirection, positive reinforcement, Q 15 minute safety checks. Restraints/seclusion/emergency medication: N/A Justification of Continued Inpatient Treatment: Patient needs interruption of current crisis with adjustment of medication in a safe and therapeutic environment.
--- NOTE | 2020-06-06 12:09 | NUR ---
75-100% PO intake, great appetite. No nutrition problem. Recommend: 1. continue regular diet 2. weight weekly Addendum: 06/06/20 at [address] Amended: Links added.
--- NOTE | 2020-06-06 23:45 | NUR ---
Nursing Progress Note: Legal hold: LPS Client on involuntary status for GD Report received from Lon MACK with use of SBAR. Why are they here: Pt decompensated at board and care; increasingly agitated with bizarre, paranoid and delusional statements. Access center assessed and brought to ED for evaluation and stabilization. Assessment What has happened this shift: Pt up in [facility] at start of shift. He said his mood was good and that he enjoyed the groups today. Pt denied AH and VH at this time "i'm getting a little break from them". Pt affect is bright he smiles almost constantly and at times his smile seems unnatural. Pt pleasant and cooperative with care took all medications went to sleep early stating he was tired because he got up early and did not take any naps. S/I, H/I: Pt denies A/VH: not at this time Sleep: asleep at this time ADL's: Independent. Group attendance: yes Were meds taken: Yes Any med S/E: None noted or reported Mental Status Exam Appearance: Wearing a suit coat over hospital scrubs. Eye contact: Good Behavior: Paces the unit, socializes with select peers, watches TV, responds to internal stimuli. Speech: Speaks in a slow drawl, clear, audible, loud at times. Mood: "good" Affect: Pleasant, congruent with mood Thought process: Delusional Thought Content: Did not verbalize any delusions this shift. Cognition: A/O X 3, disoriented to situation. Insight: Poor Judgment: Poor Interventions PRN's used: Trazodone Therapeutic interventions: 1:1 assessment,provided clear and simple instructions, active listening, therapeutic conversation, medication administration/education/monitoring, behavior monitoring and intervention; reality orientation, limit setting, verbal de-escalation, redirection, positive reinforcement, Q 15 minute safety checks. Restraints/seclusion/emergency medication: N/A Justification of Continued Inpatient Treatment: Patient needs interruption of current crisis with adjustment of medication in a safe and therapeutic environment.
[2020-06-07 08:00] VITALS: BP 101/61
[2020-06-07] MEDS: pantoprazole 40mg Tablet.DR PO SCH (08:06)
[2020-06-07] MEDS: haloperidol 5mg tablet PO SCH ×3 (08:06→20:22)
[2020-06-07] MEDS: divalproex sod 250mg ER (24-hour) tablet PO SCH ×2 (08:06→20:22)
[2020-06-07] MEDS: trihexyphenidyl HCL 5 MG tablet PO SCH ×2 (08:06→20:21)
--- NOTE | 2020-06-07 10:00 | NUR ---
Group Therapy: Process Group This Clinicians goals for this process group were as follows: (1) Ask scaling questions about Patients current anxiety, depression, and irritability symptoms as a check-in. (2) Share psychoeducation about emotional escalation as it relates to stress and negative symptoms, Fight, flight, freeze. (2) Provide psychoeducation on the STOPP acronym: Stop, Take a Breath, Observe the situation, Put things into perspective, and, Practice what works. (3) Share psychoeducation on principles of mindfulness and emotional relaxation techniques that Patients may utilize to reduce the acuity of unwanted emotional escalation. (5) Process Clients thoughts and reflections on this topic within the group milieu. Patient identified experiencing the following levels of anxiety, depression, and anger/irritability while present in the group milieu. Anxiety: 06/03 Depression: -06/03 Anger/irritability: 01/04 Patient presented as open and cooperative within the group milieu. Patient was dressed in a: dark hat, a smallwood suit jacket, a dark t-shirt and matching dark pants within the milieu. Patient's thought content was clear and concrete. Patient's thought process, was clear, coherent, and occasionally linear. However, several of Patient's comments were off topic--reflecting tangential/circumstantial thinking and flight of ideas. One one occasion, when this Clinician was sharing the importance of practicing controlled breathing, Patient brought up the concept of, "Having gas," and made a comment about how he wondered if some women mistook gas for being because it may resemble the kicking of an unborn baby. This Clinician made gentle verbal attempts to redirect Patient back to the topic of discussing the STOPP method of emotional relaxation. Patient presented as jovial, verbally engaged, and minimally intrusive within the milieu, but was easily redirected by gentle verbal prompts. Angelo Marks MA, LEXIE Addendum: 06/07/20 at 1117 by Angelo Marks SS Amended: Links added.
--- NOTE | 2020-06-07 16:33 | NUR ---
Nursing Progress Note: Legal hold: LPS Client on involuntary status for GD Report received from RN with use of SBAR. Why are they here: Pt decompensated at board and care; increasingly agitated with bizarre, paranoid and delusional statements. Access center assessed and brought to ED for evaluation and stabilization. Assessment What has happened this shift: Patient was up at change of shift. Patient was pleasant today. Patient denies suicidal/homicidal ideations. Patient hearing voices today. Patient talking about [place] and Hitler. Patient is pleasantly psychotic and smiles and he is speaking. Patient went to group today and participated. Patient did start talking about flatulence and was then redirected. Patient takes his medications and is social. No problems today. S/I, H/I: Pt denies A/VH: yes, audio hallucinations Sleep: No naps today ADL's: Independent. Group attendance: yes Were meds taken: Yes Any med S/E: None noted or reported Mental Status Exam Appearance: wearing personal clothing, hair is messy with hat on. Eye contact: Good Behavior: socializes with peers, watches TV, responds to internal stimuli. Speech: Speaks in a slow drawl, clear, audible, loud at times. Mood: euthymic Affect: Pleasant Thought process: Delusional Thought Content: delusions Cognition: A/O X 3, disoriented to situation. Insight: Poor Judgment: Poor Interventions PRN's used: None Therapeutic interventions: 1:1 assessment,provided clear and simple instructions, active listening, therapeutic conversation, medication administration/education/monitoring, behavior monitoring and intervention; reality orientation, limit setting, verbal de-escalation, redirection, positive reinforcement, Q 15 minute safety checks. Restraints/seclusion/emergency medication: N/A Justification of Continued Inpatient Treatment: Patient needs interruption of current crisis with adjustment of medication in a safe and therapeutic environment.
[2020-06-07 20:00] VITALS: BP 127/79
--- NOTE | 2020-06-07 23:31 | NUR ---
Nursing Progress Note: Legal hold: LPS Client on involuntary status for GD Report received from Lon MACK with use of SBAR. Why are they here: Pt decompensated at board and care; increasingly agitated with bizarre, paranoid and delusional statements. Access center assessed and brought to ED for evaluation and stabilization. Assessment What has happened this shift: Pt is up and socializing at shift change. He is wearing a sport coat and a camo hat with slacks. We is very pleasant and states he had a "very interesting day" because "I found out what I was worth today." When asked what he meant by this he rambles something about the hospital and his brother calling but could not make anything else out. He then states, "I need a lot of lovin'." Pt is medication compliant and cooperative with 1:1 assessment. S/I, H/I: Pt denies A/VH: denies at this time, but appears to be internally preoccupied at times Sleep: asleep at this time ADL's: Independent. Group attendance: yes Were meds taken: Yes Any med S/E: None noted or reported Mental Status Exam Appearance: neat, clean Eye contact: Good Behavior: Paces the unit, socializes Speech: Speaks in a slow drawl, clear, audible, loud at times. Mood: upbeat Affect: Pleasant, congruent with mood Thought process: Delusional Thought Content: circumstantial Cognition: A/O X 3, disoriented to situation. Insight: Poor Judgment: Poor Interventions PRN's used: none Therapeutic interventions: 1:1 assessment,provided clear and simple instructions, active listening, therapeutic conversation, medication administration/education/monitoring, behavior monitoring and intervention; reality orientation, limit setting, verbal de-escalation, redirection, positive reinforcement, Q 15 minute safety checks. Restraints/seclusion/emergency medication: N/A Justification of Continued Inpatient Treatment: Patient needs interruption of current crisis with adjustment of medication in a safe and therapeutic environment.
[2020-06-08] MEDS: trihexyphenidyl HCL 5 MG tablet PO SCH ×2 (07:53→20:18)
[2020-06-08] MEDS: divalproex sod 250mg ER (24-hour) tablet PO SCH ×2 (07:53→20:18)
[2020-06-08] MEDS: pantoprazole 40mg Tablet.DR PO SCH (07:53)
[2020-06-08] MEDS: haloperidol 5mg tablet PO SCH ×3 (07:53→20:19)
[2020-06-08 08:00] VITALS: BP 102/59
--- NOTE | 2020-06-08 10:00 | NUR ---
Group Therapy: Process Group This Clinicians goal for this process group were as follows: (1) Ask scaling questions about Patients current anxiety, depression, and irritability symptoms as a check-in. (2) Provide psychoeducation on emotional and situational stressors. (3) Discuss thoughts and feelings that patients experience when they have experienced an emotional and/or situational stressor. (4) Provide psychoeducation on interventions, as actions patients can take to reduce feelings of emotional escalation caused by situational and emotional stressors. (5) Process Patients thoughts and reflections on this topic within the group milieu. Patient identified experiencing the following levels of anxiety, depression, and anger/irritability while present in the group milieu. Anxiety: 12/04 Depression: 12/04 Anger/irritability: 12/04 Patient presented as open and cooperative within the group milieu. Patient was dressed in nondescript personal clothing that were appropriate within the milieu. He wore a dark hat, a dark suit jacket, over a black button up suit, with black pants. Patient's thought content was clear and content. Patient's thought process, was linear, and coherent, but often marked by circumstantial and tangential thinking, and flight of ideas. The majority of the time within the group milieu, Patient's comments were appropriate for the context of discussing stressful situations, how they make one feel, and what one thinks about during said stressful moments. Patient identified the stress situation of, "Being locked up," which this Clinician used as an example of a stressful situation. Patient did not appear to be actively responding to internal stimuli during session. Patient presented as verbally engaged, and nonobtrusive within the group milieu. Patient was easily redirected with verbal prompts when his comments veered off from the discussion of stressful situations and interventions one could use to decrease unwanted mental health symptoms. Patient presented in calm, euthymic mood with congruent affect. Angelo Marks MA, STATOR WINDER Addendum: 06/08/20 at 1128 by Angelo Marks SS Amended: Links added.
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
--- NOTE | 2020-06-08 15:19 | NUR ---
Hardik's STAR Team Clinician, Ruth, called to inquire about Hardik's progress. Discussed him returning to [facility]. She reported it would be helpful if he has a PRN available for when he gets agitated. Dinkey Engine Firer/Fireman will discuss with . Ruth is also going to try to meet with Hardik on the unit. LEXIE Squires
[2020-06-08 20:00] VITALS: BP 119/72
--- NOTE | 2020-06-09 01:13 | NUR ---
Nursing Progress Note: Legal hold: LPS Client on involuntary status for GD Report received from Vinod RN with use of SBAR. Why are they here: Pt decompensated at board and care; increasingly agitated with bizarre, paranoid and delusional statements. Access center assessed and brought to ED for evaluation and stabilization. Assessment What has happened this shift: Pt is walking at shift change smiling and talking on the unit. He then returns to his room and sits in the dark fully dressed in his sport coat and slacks. 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 He states he had a good day, he denies SI/HI/AH/VH at this time. Pt is medication compliant and cooperative with 1:1 assessment. S/I, H/I: Pt denies A/VH: denies at this time, but appears to be internally preoccupied at times Sleep: see sleep assessment notation ADL's: Independent. Group attendance: yes Were meds taken: Yes Any med S/E: None noted or reported Mental Status Exam Appearance: neat, clean Eye contact: Good Behavior: Paces the unit, socializes Speech: Speaks in a slow drawl, clear, audible, loud at times. Mood: upbeat Affect: Pleasant, congruent with mood Thought process: Delusional Thought Content: circumstantial Cognition: A/O X 3, disoriented to situation. Insight: Poor Judgment: Poor Interventions PRN's used: none Therapeutic interventions: 1:1 assessment,provided clear and simple instructions, active listening, therapeutic conversation, medication administration/education/monitoring, behavior monitoring and intervention; reality orientation, limit setting, verbal de-escalation, redirection, positive reinforcement, Q 15 minute safety checks. Restraints/seclusion/emergency medication: N/A Justification of Continued Inpatient Treatment: Patient needs interruption of current crisis with adjustment of medication in a safe and therapeutic environment.
[2020-06-09] MEDS: LORazepam 1 MG tablet PO PRN (02:57)
[2020-06-09] MEDS: pantoprazole 40mg Tablet.DR PO SCH (07:44)
[2020-06-09] MEDS: haloperidol 5mg tablet PO SCH ×3 (07:44→20:31)
[2020-06-09] MEDS: divalproex sod 250mg ER (24-hour) tablet PO SCH ×2 (07:44→20:30)
[2020-06-09] MEDS: trihexyphenidyl HCL 5 MG tablet PO SCH ×2 (07:44→20:30)
[2020-06-09 07:55] VITALS: BP 113/88
--- NOTE | 2020-06-09 10:00 | NUR ---
Group Therapy: Process Group This Clinicians goals for this process group were as follows: (1) Ask scaling questions about Patients current anxiety, depression, and irritability symptoms as a check-in. (2) Share with Patients psychoeducation about the importance of being able to identify safe, and supportive people who can assist them with their mental and emotional needs. (3) Share psychoeducation on interpersonal boundaries and considerations to assist Patients in developing the ability to discern which groups and individuals will be helpful in assisting them during times of emotional escalation and crisis. (4) Engage Patients in discussion of the topics discussed within the group milieu. Patient identified experiencing the following levels of anxiety, depression, and anger/irritability while present in the group milieu. Anxiety: 12/04 Depression: 12/04 Anger/irritability: 12/04 Patient presented as open and cooperative within the group milieu. Patient was dressed in nondescript personal clothing that were appropriate for the milieu--a dark hat, a smallwood suit jacket, over a dark button up shirt, dark pants and yellow non-slip socks. Patient's thought content was clear and concrete. Patient's thought process was largely clear and coherent, but was occasionally marked by delusional statements, tangential and circumstantial thinking. For example Patient had claimed that his Mother was the rrts of [employer], however, this Clinician does not know if this statement is factual. Also in the conversation of spiritual support people, whom one could turn to for mental health support, this Clinician shared several examples of who these individuals might be: rabbis, ministers, Imams, pastors, to which Client stated: "Evil sorcerers," which elicited laughter from other patients within the group milieu. Per this Clinician's impression of Patient's comments, he was aware that it was bullock to not share significant details of his mental health situation with strangers and unsafe people, while identifying his Case Manger by name as a person that he trusts most to talk about specifics about his mental health situation. Patient presented as verbally engaged and nonobtrusive within the group milieu. Angelo Marks MA, FALL INTERN Addendum: 06/09/20 at 1122 by Angelo TILLMAN Amended: Links added.
--- NOTE | 2020-06-09 14:13 | NUR ---
ACCEPTED BACK AT [facility] Hardik has been accepted back at [facility] per MARLON Miranda Team. Hardik talked to Tabby at [facility] on the phone and Ruth is going to visit with Hardik tomorrow on the unit. The plan is for Hardik to return sometime mid-week next week. It is requested that Hardik have a PRN available to him once he returns. LEXIE Squires
[2020-06-09] MEDS: benztropine 1mg tablet PO PRN (15:45)
--- NOTE | 2020-06-09 16:51 | NUR ---
Nursing Progress Note: Legal hold: LPS Client on involuntary status for GD Report received from Veronica Da Silva RN with use of SBAR. Why are they here: Pt decompensated at board and care; increasingly agitated with bizarre, paranoid and delusional statements. Access center assessed and brought to ED for evaluation and stabilization. Assessment Pt stated "no voices" today. He reported awakening last night for a PRN but was able to return to sleep afterwards without difficulty. Pt asked this RN to refill his water pitcher after which he stated, "thank you my dear" while walking down the phillips. He paused, turned his head and said, "I'm not comin' on or anything." Reassured pt that this nurse did not interpret his statement that way. At around 1509, pt approached this RN and asked for some Tylenol. Asked pt what he needed Tylenol for, he stated, "I'm cogwheeling." Asked pt to demonstrate this with his arm. Pt stated, "in my neck, it's stiff." Pt seemed to think his neck stiffness was a side effect of medication. Pt takes Haldol. Contacted DIOGENES Bruce and obtained order for Cogentin 0.5 mg PO BID prn EPS, gave 1st dose at 1545. Pt has been accepted back at [facility], expected discharge sometime mid week next week. S/I, H/I: Pt denies A/VH: Pt denies Sleep: Pt slept 8.75 hours last night per noc shift report ADL's: Independent. Group attendance: Yes Were meds taken: Yes Any med S/E: Pt reported neck stiffness. Mental Status Exam Appearance: Disheveled hair, facial stubble,dressed in his lama suit, wearing glasses Eye contact: Good Behavior: Pleasant, cooperative, socializes with staff and peers Speech: Speaks in a slow drawl, clear, audible, loud at times. Mood: Good Affect: Appropriate, animated during conversation Thought process: Delusional, circumstantial Thought Content: His neck is stiff as a side effect of mediations. Cognition: A/O X 3, some disorientation to events that lead to admission. Insight: Fair Judgment: Fair Interventions PRN's used: Cogentin 0.5 mg Therapeutic interventions: 1:1 assessment, active listening, therapeutic conversation, medication administration/education/monitoring, behavior monitoring and intervention; reality orientation, redirection, positive reinforcement, Q 15 minute safety checks. Restraints/seclusion/emergency medication: N/A Justification of Continued Inpatient Treatment: Patient needs interruption of current crisis with adjustment of medication in a safe and therapeutic environment.
[2020-06-09 19:00] VITALS: BP 131/86
--- NOTE | 2020-06-10 00:59 | NUR ---
Nursing Progress Note: Legal hold: LPS Client on involuntary status for GD Report received from Susanne MACK with use of SBAR. Why are they here: Pt decompensated at board and care; increasingly agitated with bizarre, paranoid and delusional statements. Access center assessed and brought to ED for evaluation and stabilization. Assessment What has happened this shift: Pt is observed walking the unit in his sport coat with a cloth mask on this evening. He talks to peers and watches TV. He states, "It is excellent that the world isn't being invaded by aliens right now." He denies SI/HI/AH/VH at this time. Pt is medication compliant and cooperative with 1:1 assessment. S/I, H/I: Pt denies A/VH: denies at this time, but appears to be internally preoccupied at times Sleep: see sleep assessment notation ADL's: Independent. Group attendance: yes Were meds taken: Yes Any med S/E: None noted or reported Mental Status Exam Appearance: neat, clean Eye contact: Good Behavior: Paces the unit, socializes Speech: Speaks in a slow drawl, clear, audible, loud at times. Mood: upbeat Affect: Pleasant, congruent with mood Thought process: Delusional Thought Content: circumstantial Cognition: A/O X 3, disoriented to situation. Insight: Poor Judgment: Poor Interventions PRN's used: none Therapeutic interventions: 1:1 assessment,provided clear and simple instructions, active listening, therapeutic conversation, medication administration/education/monitoring, behavior monitoring and intervention; reality orientation, limit setting, verbal de-escalation, redirection, positive reinforcement, Q 15 minute safety checks. Restraints/seclusion/emergency medication: N/A Justification of Continued Inpatient Treatment: Patient needs interruption of current crisis with adjustment of medication in a safe and therapeutic environment.
[2020-06-10 08:00] VITALS: BP 115/76
[2020-06-10] MEDS: pantoprazole 40mg Tablet.DR PO SCH (08:02)
[2020-06-10] MEDS: divalproex sod 250mg ER (24-hour) tablet PO SCH ×2 (08:02→20:53)
[2020-06-10] MEDS: trihexyphenidyl HCL 5 MG tablet PO SCH ×2 (08:03→20:52)
[2020-06-10] MEDS: haloperidol 5mg tablet PO SCH ×3 (08:03→20:52)
--- NOTE | 2020-06-10 10:00 | NUR ---
Group Therapy: Process Group This Clinicians goals for this process group were as follows: (1) Ask scaling questions about Patients current anxiety, depression, and irritability symptoms as a check-in. (2) Share psychoeducation about automatic thoughts and cognitive distortions. (3) Share psychoeducation on CBT thought-stopping and, thought-reframing. (4) Discuss strategies for identifying negative, unhelpful, and/or irrational thoughts as quickly as possible to avoid unwanted escalation of mental health symptoms. (5) Process Clients thoughts and reflections on this topic within the group milieu. Patient identified experiencing the following levels of anxiety, depression, and anger/irritability while present in the group milieu. Anxiety: 05/04 Depression: 05/04 Anger/irritability: 05/04 Patient presented as open and cooperative within the group milieu. Patient was dressed in nondescript personal clothing--a black hat, a dark smallwood suit jacket, over a black button up shirt, with black slacks and yellow non slip socks--that were appropriate within the milieu. Patient's thought content was clear and concrete. Patient's thought process was largely clear, coherent and linear; however, there were times when some of his comments on the topic of thinking errors, thought-stopping and thought-reframing were off topic considerably. Patient presented as verbally engaged and nonobtrusive within the group milieu. Per this Clinician's impression, based upon Patient's comments, Patient demonstrated an awareness that a positive outlook, or healthy/rational patterns of thinking could lead to positive ways of feeling and acting in certain situations. Angelo Marks MA, AUTOMATIC OPERATOR Addendum: 06/10/20 at 1147 by Angelo Marks Amended: Links added.
[2020-06-10] MEDS: benztropine 1mg tablet PO PRN (10:31)
--- NOTE | 2020-06-10 14:18 | NUR ---
Nursing Progress Note: Legal hold: LPS Client on involuntary status for GD Report received from Veronica Da Silva RN with use of SBAR. Why are they here: Pt decompensated at board and care; increasingly agitated with bizarre, paranoid and delusional statements. Access center assessed and brought to ED for evaluation and stabilization. Assessment Pt stated that the Cogentin worked yesterday for his stiff neck, he states he may need it again today. Pt insists that there is a cog in his neck and it spins and pops and that's cogwheeling, "I figured it out." Attempted reality orientation on true definition of cogwheeling which pt refused to accept. Pt stated he plans on writing a song today. Ruth from the [facility]AR team came and interviewed pt before breakfast. Overheard the conversation that this will be his last chance at the board and care or he will have to be placed in an IMD. Pt expressed understanding of what behaviors are unacceptable there and that when he feels himself starting to get worked up, he needs to ask for a PRN. Pt approached this RN after breakfast to hand this RN a paper, stated he wrote a song. Asked pt to sing it. Pt sang "History states again and again how nature points out the folly of man." (A classic rock song named Corine) A minute or so later pt admitted to this nurse, "I didn't write that song." This nurse let pt know that I was aware of this and asked pt who sang the song, he replied correctly, "[employer]." Pt requested and was given prn Cogentin 0.5 mg at 1031 for a stiff neck with good effect. Pt approached this nurse after lunch to state that maybe he should stay here longer. Pt seemed to have some fear of failing again if he returns to his board and care. Reassured pt that he was doing well and that he still has some time as the plan is for him to discharge sometime midweek next week. S/I, H/I: Pt denies A/VH: Pt denies Sleep: Pt slept 8 hours last night per noc shift report ADL's: Independent. Group attendance: Yes Were meds taken: Yes Any med S/E: Pt reported neck stiffness. Mental Status Exam Appearance: Pt wearing a camo baseball cap, he has facial stubble,dressed in his lama suit, wearing glasses Eye contact: Good Behavior: Pleasant, cooperative, socializes with staff and peers Speech: Speaks in a slow drawl, clear, audible, loud at times. Mood: mildly anxious Affect: appears mildly depressed and anxious Thought process: Delusional, circumstantial Thought Content: Worried he will fail again at his board and care. Cognition: A/O X 3, some disorientation to events that lead to admission. Insight: Fair to good Judgment: Fair to good Interventions PRN's used: Cogentin 0.5 mg Therapeutic interventions: 1:1 assessment, active listening, therapeutic conversation, medication administration/education/monitoring, behavior monitoring and intervention; reality orientation, redirection, positive reinforcement, Q 15 minute safety checks. Restraints/seclusion/emergency medication: N/A Justification of Continued Inpatient Treatment: Patient needs interruption of current crisis with adjustment of medication in a safe and therapeutic environment, plan is for him to return to [facility] next week. Addendum: 06/10/20 at 1447 by Mi Diaz RN (Lee) Pt's prn Cogentin was D/c'd. He has a new order for Artane 5 mg TID PRN.
[2020-06-10 20:00] VITALS: BP 109/78
--- NOTE | 2020-06-11 04:32 | NUR ---
Nursing Progress Note: Legal hold: LPS Client on involuntary status for GD Report received from Susanne MACK with use of SBAR. Why are they here: Pt decompensated at board and care; increasingly agitated with bizarre, paranoid and delusional statements. Access center assessed and brought to ED for evaluation and stabilization. Assessment What has happened this shift: Patient observed sleeping at the beginning of shift. Easily aroused for HS snack. Patient is pleasant and cooperative with all care. He reported feeling, "pretty good," and described enjoying patio time during the previous shift. Patient denies SI, HI, A/VH. When asked about any difficulty with urination he reported, "no more that usual. It always kind of moran. 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 Patient observed sleeping without difficulty. S/I, H/I: Denies A/VH: Denies, appears to be internally preoccupied Sleep: Refer to sleep assessment ADL's: Independent. Group attendance: No groups this shift Were meds taken: Yes, without incident Any med S/E: None observed or reported Mental Status Exam Appearance: Disheveled, appropriate attire. Eye contact: Good Behavior: Laying in bed, sitting at bed side and walking the unit Speech: Speaks in a slow drawl, clear, audible, loud at times. Mood: Euphoric Affect: Pleasant, congruent with mood Thought process: Delusional Thought Content: Washing his suit Cognition: A/O X 3, disoriented to situation. Insight: Poor Judgment: Poor Interventions PRN's used: none Therapeutic interventions: 1:1 assessment,provided clear and simple instructions, active listening, therapeutic conversation, medication administration/education/monitoring, behavior monitoring and intervention; reality orientation, limit setting, verbal de-escalation, redirection, positive reinforcement, Q 15 minute safety checks. Restraints/seclusion/emergency medication: N/A Justification of Continued Inpatient Treatment: Patient needs interruption of current crisis with adjustment of medication in a safe and therapeutic environment.
[2020-06-11] MEDS: divalproex sod 250mg ER (24-hour) tablet PO SCH ×2 (07:56→20:46)
[2020-06-11] MEDS: trihexyphenidyl HCL 5 MG tablet PO SCH ×2 (07:56→20:45)
[2020-06-11] MEDS: haloperidol 5mg tablet PO SCH ×3 (07:56→20:45)
[2020-06-11] MEDS: pantoprazole 40mg Tablet.DR PO SCH (07:56)
[2020-06-11 08:00] VITALS: BP 125/77
[2020-06-11] MEDS: trihexyphenidyl HCL 5 MG tablet PO PRN (09:35)
[2020-06-11] MEDS: LORazepam 1 MG tablet PO PRN (13:43)
[2020-06-11] MEDS: quetiapine 100mg tablet PO PRN (13:43)
--- NOTE | 2020-06-11 15:02 | NUR ---
Nursing Progress Note: Legal hold: LPS Client on involuntary status for GD Report received from Veronica Da Silva RN with use of SBAR. Why are they here: Pt decompensated at board and care; increasingly agitated with bizarre, paranoid and delusional statements. Access center assessed and brought to ED for evaluation and stabilization. Assessment Received Pt on edge of bed resting w/o distress at beginning of shift. Pt cooperative with vitals and AM medications. Pt ate all meals in community room with others and interacted well. Pt c/o cogwheeling, but really was describing a stiff neck it seemes. Pt did receive Artane PRN for muscle stiffness with good effect, per Pt. Pt spent time in both recreation and community rooms watching TV and talking with other Pts. Pt became agitated and aggressive, yelling in afternoon r/t delusion about a female. 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 Pt reports not sleeping well and wants Seroquel at night to sleep. Pt accepted PRN Seroquel and Ativan and layed down in bed. S/I, H/I: Pt denies A/VH: Pt denies Sleep: Napped ADL's: Independent. Group attendance: Yes Were meds taken: Yes Any med S/E: Pt reported neck stiffness. Mental Status Exam Appearance: Casual n his lama suit Eye contact: Good Behavior: Pleasant, cooperative, socializes with staff and peers Speech: Slow, clear, audible Mood: Euthymic Affect: Congruent with mood Thought process: Delusional, circumstantial Thought Content: Enjoying the day, getting out Cognition: A/O X 3, some disorientation to events that lead to admission Insight: Fair to good Judgment: Fair to good Interventions PRN's used: Artane, Seroquel, Ativan. Therapeutic interventions: 1:1 assessment, active listening, therapeutic conversation, medication administration/education/monitoring, behavior monitoring and intervention; reality orientation, redirection, positive reinforcement, Q 15 minute safety checks. Restraints/seclusion/emergency medication: N/A Justification of Continued Inpatient Treatment: Patient needs interruption of current crisis with adjustment of medication in a safe and therapeutic environment, plan is for him to return to [facility].
[2020-06-11 20:11] VITALS: BP 83/42
--- NOTE | 2020-06-12 05:25 | NUR ---
Nursing Progress Note: Legal hold: LPS Client on involuntary status for GD Report received from Susanne MACK with use of SBAR. Why are they here: Pt decompensated at board and care; increasingly agitated with bizarre, paranoid and delusional statements. Access center assessed and brought to ED for evaluation and stabilization. Assessment What has happened this shift: Patient in bed sleeping at the beginning of shift. Pleasant and cooperative with all care, compliant with medication. Patient appeared tired and minimal when responding to designer writer. Did not participate in HS snack. Denies SI, HI, A/VH and does not appear to be responding to internal stimuli this shift. Patient agreeable to having a difficult day and wanting to return to sleep. Does not appear to be having difficulty sleeping. S/I, H/I: Denies A/VH: Denies Sleep: Refer to sleep assessment ADL's: Independent. Group attendance: No groups this shift Were meds taken: Yes, without incident Any med S/E: None observed or reported Mental Status Exam Appearance: Disheveled, appropriate attire. Eye contact: Good Behavior: Isolative, sleeping Speech: Speaks in a slow drawl, clear, audible, loud at times. Mood: Tired Affect: Flat Thought process: Poverty of thought Thought Content: Sleep, rough day Cognition: A/O X 3, disoriented to situation. Insight: Poor Judgment: Poor Interventions PRN's used: none Therapeutic interventions: 1:1 assessment,provided clear and simple instructions, active listening, therapeutic conversation, medication administration/education/monitoring, behavior monitoring and intervention; reality orientation, limit setting, verbal de-escalation, redirection, positive reinforcement, Q 15 minute safety checks. Restraints/seclusion/emergency medication: N/A Justification of Continued Inpatient Treatment: Patient needs interruption of current crisis with adjustment of medication in a safe and therapeutic environment.
[2020-06-12] MEDS: haloperidol 5mg tablet PO SCH ×3 (07:12→20:31)
[2020-06-12] MEDS: pantoprazole 40mg Tablet.DR PO SCH (07:12)
[2020-06-12] MEDS: divalproex sod 250mg ER (24-hour) tablet PO SCH ×2 (07:15→20:31)
[2020-06-12 07:51] VITALS: BP 95/58
[2020-06-12] MEDS: trihexyphenidyl HCL 5 MG tablet PO SCH ×2 (08:52→20:30)
--- NOTE | 2020-06-12 17:22 | NUR ---
Nursing Progress Note: Legal hold: LPS Report received from KARAN Dye with use of SBAR. Why are they here: Pt decompensated at board and care; increasingly agitated with bizarre, paranoid and delusional statements. Access center assessed and brought to ED for evaluation and stabilization. Assessment What happened this shift: Received patient sitting in his chair at shift change. Patient immediately requested his AM medications and coffee. During 1:1 pt says "Don't I look dapper." Pt. states he takes his Artane because "I have cogwheeling" when asked what he means, pt states "a cog that wheels back and forth." "I have one on each side in my neck and it effects my sight." Reports it is effective for the pain in his neck. Eats breakfast and all meals in group room. Compliant with care and medication. Pt. spends time in his room and pacing the halls. Pt. has an episode of agitation, yelling in his room; loose associations, disorganized statements. First talking about another peer wanting chocolate cake, then "I was sitting on my napkin" and this is why he was yelling in his room. Pt.then says "I am old and senile." "It is like playing racquetball and I don't like it, it hurts my hand." S/I, H/I: Patient denies both. A/VH: Patient denies both. Sleep: 10.75 hrs. per Sleep Assessment. No naps this shift. ADL's: Independent. Group attendance: No group on Saturday. Were meds taken: Yes, without hesitation. Any med S/E: Patient reports neck stiffness. Artane 5mg BID Mental Status Exam Appearance: Disheveled, "dapper" in his lama suit and baseball cap. Eye contact: Good Behavior: Cooperative, some agitation, but able to redirect, isolates to room and paces hallway. Speech: Clear, pressured and loud at times. Mood: Euthymic Affect: Congruent with mood Thought process: Delusional, circumstantial Thought Content: Situational Cognition: A/O X 3, some disorientation to events that lead to admission Insight: Fair to good Judgment: Fair to good Interventions PRN's used: Therapeutic interventions: 1:1 assessment, active listening, therapeutic conversation, medication administration/education/monitoring, behavior monitoring and intervention; reality orientation, redirection, positive reinforcement, Q 15 minute safety checks. Restraints/seclusion/emergency medication: N/A Justification of Continued Inpatient Treatment: Patient is LPS conserved and will be discharged back to [facility], requires a safe and therapeutic environment until discharge.
[2020-06-12 20:00] VITALS: BP 114/76
--- NOTE | 2020-06-13 01:43 | NUR ---
Nursing Progress Note: Legal hold: LPS Client on involuntary status for GD Report received from MARTINA Skinner with use of SBAR. Why are they here: Pt decompensated at board and care; increasingly agitated with bizarre, paranoid and delusional statements. Access center assessed and brought to ED for evaluation and stabilization. Assessment What has happened this shift: The patient was found in his room sitting in a chair. When asked what happened to bring him back here, "I just couldn't handle the place, there is too much drama going on, and you can't go anywhere to get away from it. My life really sucks, and there's no way to come down from it." He continues to have loose associations, tangential, disorganized, and is easily agitated to the point of outbursts for no particular reason. He is compliant with medications, and is denying any thought of wanting to harm himself. S/I, H/I: Denies A/VH: Denies Sleep: Refer to sleep assessment ADL's: Independent. Group attendance: No groups this shift Were meds taken: Yes. Any med S/E: None reported or observed Mental Status Exam Appearance: Disheveled, unshaved, and likes to wear nice clothing. Eye contact: Good Behavior: Isolative, delusional, irritable, loud at times. Speech: Normal. Mood: Tired Affect: Blunted Thought process: Poverty of thought Thought Content: [place] Serenity Cognition: A/O X 3, disoriented to situation. Insight: Poor Judgment: Poor Interventions PRN's used: none Therapeutic interventions: 1:1 assessment,provided clear and simple instructions, active listening, therapeutic conversation, medication administration/education/monitoring, behavior monitoring and intervention; reality orientation, limit setting, verbal de-escalation, redirection, positive reinforcement, Q 15 minute safety checks. Restraints/seclusion/emergency medication: N/A Justification of Continued Inpatient Treatment: Patient needs interruption of current crisis with adjustment of medication in a safe and therapeutic environment.
[2020-06-13] MEDS: acetaminophen 325mg tablet PO PRN (06:10)
[2020-06-13] MEDS: divalproex sod 250mg ER (24-hour) tablet PO SCH ×2 (07:27→20:30)
[2020-06-13] MEDS: haloperidol 5mg tablet PO SCH ×3 (07:27→20:33)
[2020-06-13] MEDS: pantoprazole 40mg Tablet.DR PO SCH (07:28)
[2020-06-13] MEDS: trihexyphenidyl HCL 5 MG tablet PO SCH ×2 (07:38→20:30)
[2020-06-13 08:00] VITALS: BP 109/65
--- NOTE | 2020-06-13 10:00 | NUR ---
Group Therapy: Process Group This Clinicians goals for this process group were as follows: (1) Ask scaling questions about Patients current anxiety, depression, and irritability symptoms as a check-in. (2) Share psychoeducation about self-efficacy, and ego strength. (3) Provide psychoeducation on NMT Medical Drama triangleVictim, Persecutor, Rescuer dynamic. (4) Share psychoeducation on developing positive ego strengthpositive affirmations, positive self-talk, transitioning from a victim of circumstances to a survivor of circumstances. (5) Process Clients thoughts and reflections on this topic within the group milieu. Patient identified experiencing the following levels of anxiety, depression, and anger/irritability while present in the group milieu. Anxiety: 03/04 Depression: 01/04 Anger/irritability: 04/03 Patient presented as open and cooperative later during his time within the group milieu. Initially, Patient was hesitant to speak. He acknowledged later in the process group that he had been upset at the start of the process group. Patient was dressed in nondescript personal clothing that were appropriate for the milieu--a dark hat, a smallwood suit jacket, over a dark button up shirt, with smallwood slacks, and yellow non-slip socks. Patient's thought content was clear, and concrete. His thought process was occasionally, clear, coherent, and linear; however, on several instances Patient's comments were considerably off topic. For instance, this Clinician asked the patients, in the context of what improvements they would notice in how one views themselves, what they are capable of doing, and how they might view the world, when they transition from having a victim's mentality to a survivor's mentality, to which Patient responded, "I'd ride a submarine." Patient presented as verbally engaged and nonobtrusive within the group milieu. Angelo Marks MA, RESIDENTIAL MONITOR Addendum: 06/13/20 at 1138 by Angelo Marks SS Amended: Links added.
[2020-06-13] MEDS: quetiapine 100mg tablet PO PRN (10:39)
[2020-06-13] MEDS: LORazepam 1 MG tablet PO PRN (10:39)
--- NOTE | 2020-06-13 11:18 | NUR ---
75-100% PO intake, great appetite. No nutrition problem. Recommend: 1. continue regular diet 2. weight weekly Addendum: 06/13/20 at [address] Amended: Links added.
--- NOTE | 2020-06-13 16:13 | NUR ---
Nursing Progress Note: Legal hold: LPS Report received from MARTINA Forrest with use of SBAR. Why are they here: Pt decompensated at board and care; increasingly agitated with bizarre, paranoid and delusional statements. Access center assessed and brought to ED for evaluation and stabilization. Assessment What happened this shift: Received patient up and sitting in his room at shift change. Pt. is pleasant and requests coffee and his medication. Pt. is compliant 1:1 assessment and medications. Pt. eats breakfast and all meals in group. Pt. discusses random thoughts "there are 3 stings off that fiddle, the on inside" and pats his chest. "I am no good". Pt. perseverated on how he thinks he needs to be at a higher level of care "because of my attitude." Pt is encouraged and given positive feedback. Pt. had a couple of outbursts one pt. came this marketing copywriter "that girl just hates me the one with the lama hair." "She is with the grump." Pt. was overheard yelling in his room unsure why he was upset. Shared words with another male in the phillips and stormed to his room. Administered Ativan and Seroquel with effect. Pt. said "thank you I am feeling better." Approximately an hour later pt. stormed to nurses station and yelled "You gave me a PRN!" "Why did you give me PRN and not him!" Pt. pointed to the male peer he had issues with earlier. Pt. went back to his room where another RN assisted in trying to verbally deescalate him. Pt. had a scheduled med and when approached said "Oh my Haldol, I have been waiting for that." Pt. later apologized "I just blew my top, didn't I, I blew up pretty bad." "I am sorry." Pt. then went to his room and laid down. Currently sleeping with respirations even and unlabored. S/I, H/I: Patient denies both. A/VH: Patient denies both. Observed talking to self while sitting in his room as if in conversation. Sleep: 5.75 hrs. per Sleep Assessment. Napped after PRN. ADL's: Independent. Group attendance: In and out of group session. Were meds taken: Yes, without hesitation. Any med S/E: None reported this shift. Pt. takes scheuled Artane 5mg BID. Mental Status Exam Appearance: Disheveled, "dapper" in his lama suit and baseball cap. Eye contact: Good Behavior: Cooperative, some agitation, but able to redirect, isolates to room and paces hallway. Speech: Clear, pressured and loud at times. Mood: Labile Affect: Congruent with mood Thought process: Delusional, circumstantial Thought Content: Situational Cognition: A/O X 3, some disorientation to events that lead to admission Insight: Fair to good Judgment: Fair to good Interventions PRN's used: Ativan, Seroquel Therapeutic interventions: 1:1 assessment, active listening, therapeutic conversation, medication administration/education/monitoring, behavior monitoring and intervention, verbal deescalation, reality orientation, redirection, positive reinforcement, Q 15 minute safety checks. Restraints/seclusion/emergency medication: N/A Justification of Continued Inpatient Treatment: Patient is LPS conserved and will be discharged back to [facility], requires a safe and therapeutic environment until discharge.
[2020-06-13 20:16] VITALS: BP 130/67
--- NOTE | 2020-06-14 01:03 | NUR ---
Nursing Progress Note: Legal hold: LPS Client on involuntary status for GD Report received from MARTINA Mei with use of SBAR. Why are they here: Pt decompensated at board and care; increasingly agitated with bizarre, paranoid and delusional statements. Access center assessed and brought to ED for evaluation and stabilization. Assessment What has happened this shift: The patient was seen in the phillips at shift change. He is wearing green scrubs with a dark smallwood sports jacket. He was followed to his room for 1:1 assessment. When asked what happened today that caused an outburst, he denied that it ever happened. He was asked about his day, he responded, "I'm extremely depressed right now. You'll have to excuse me, but I just don't feel like talking right now." He was told that it was ok, and if there's anything this nurse could do to help, all he had to do was ask. The patient made no delusional statements to this nurse. He was compliant with medications, and was in bed soon after. S/I, H/I: Denies A/VH: Denies Sleep: Refer to sleep assessment ADL's: Independent. Group attendance: No groups this shift Were meds taken: Yes. Any med S/E: None reported or observed Mental Status Exam Appearance: Disheveled, unshaved, has an ingrown hair on side of his face. Eye contact: Good Behavior: Isolative, irritable, paranoid, self-loathing. Speech: Normal. Mood: Depressed Affect: Blunted Thought process: Poverty of thought Thought Content: [place] Serenity Cognition: A/O X 3, disoriented to situation. Insight: Poor Judgment: Poor Interventions PRN's used: none Therapeutic interventions: 1:1 assessment,provided clear and simple instructions, active listening, therapeutic conversation, medication administration/education/monitoring, behavior monitoring and intervention; reality orientation, limit setting, verbal de-escalation, redirection, positive reinforcement, Q 15 minute safety checks. Restraints/seclusion/emergency medication: N/A Justification of Continued Inpatient Treatment: Patient needs interruption of current crisis with adjustment of medication in a safe and therapeutic environment.
[2020-06-14] MEDS: trihexyphenidyl HCL 5 MG tablet PO SCH ×2 (07:09→20:05)
[2020-06-14] MEDS: haloperidol 5mg tablet PO SCH ×3 (07:09→20:05)
[2020-06-14] MEDS: divalproex sod 250mg ER (24-hour) tablet PO SCH ×2 (07:09→20:05)
[2020-06-14] MEDS: pantoprazole 40mg Tablet.DR PO SCH (07:09)
[2020-06-14 08:00] VITALS: BP 127/51
[2020-06-14] MEDS: LORazepam 1 MG tablet PO PRN (09:13)
--- NOTE | 2020-06-14 09:40 | NUR ---
DISCHARGE PLANNING Spoke to [facility] Evans Team, regarding Hardik's recent outbursts over the last couple days and expressed concern that he is not ready to return to [facility] yet. Cristina reported she will pass it along to Public Guardian. Cristina reported she thinks Hardik may lose his bed. LEXIE Squires
--- NOTE | 2020-06-14 10:00 | NUR ---
Group Therapy: Process Group This Clinicians goals for this process group were as follows: (1) Ask scaling questions about patients current anxiety, depression, and irritability symptoms as a check-in. (2) Share psychoeducation about three rules of brief solution-focused problem-solving: A) Stop doing what clearly isnt working, B) Do something different, C) If the different activity works, then do more of it. If it doesnt work, then go back to principle A). (3) Identify examples of thoughts, activities, and behaviors that people do that no longer work for them, or they create more problems than solutions. (4) Identify examples of thoughts, activities, and behaviors that may help create better emotional/behavioral outcomes and lead to good solutions to problems. (5) Engage patients in discussion of the topics shared within the group milieu. Patient presented as open and cooperative within the group milieu. He was dressed in personal clothing--a dark hat, a dark suit coat, over a button up shirt, dark slacks with yellow pull-up socks that were appropriate within the milieu. Patient did not provide answers to scaling questions about his levels of depression, anxiety, and anger/irritability as he was not present at the beginning of the process group when this Clinician posed these questions to the patients in the group. Patient's thought content was clear, and concrete; however his thought process was marked by delusional statements, that often were off topic. This Clinician was able to redirect therapeutic conversation back to the topic of solution-focused thinking and problem-solving strategies after these comments without causing distress to Patient, as this Clinician took interest in what he was saying without endorsing the delusions that Patient was sharing. Patient was verbally engaged and nonobtrusive within the group milieu. He left the group approximately 45 minutes into the process group and did not return. Angelo Marks MA, LEXIE Addendum: 06/14/20 at 1122 by Angelo Marks Amended: Links added.
[2020-06-14] MEDS ORDERED: OLANZapine **IM** 10 mg inj. IM ONE (10:55)
--- NOTE | 2020-06-14 14:43 | NUR ---
PLACEMENT Faxed placement packet to [facility] office. LEXIE Squires
--- NOTE | 2020-06-14 15:07 | NUR ---
Nursing Progress Note: Legal hold: LPS Report received from MARTINA Fish with use of SBAR. Why are they here: Pt decompensated at board and care; increasingly agitated with bizarre, paranoid and delusional statements. Access center assessed and brought to ED for evaluation and stabilization. Assessment What happened this shift: Received patient up in his room at shift change. Pt. says "good morning" and requests his medication. Patient reports sleeping good. Pt. eats breakfast and all meals in group room. Pt. denies depression "I am a little paranoid, but not depressed." Pt. denies SI/HI. Pt. requests an Ativan shortly after breakfast "I am feeling really jumpy." "And I don't want Seroquel." Administered Ativan with subjective effect. Pt. later stopped this song writer in the phillips and says "I need a shot of Zyprexa!" Pt denied A/VH. "I just know my head (and points to it)." "I need a shot." Pt. states he has had one in the past and it helped with his agitation. Pt. was also overheard getting upset with another nurse because he couldn't go downstairs "you let other people!" Received order from Dr. Starks for Zyprexa 10mg IM. Upon reassessing pt. "I feel so much better, thank you." Patient has been easily agitated the last couple of days this song writer has had him. Pt. was up for a short time then went to his room and laid down. He was up for lunch then returned to bed, respirations even and unlabored. Pt. hasn't had a recent Depakote level with request one from provider. S/I, H/I: Patient denies both. A/VH: Patient denies both. Appears to be internall preoccupied at times; having conversation with self in his room. Sleep: 8.75 hrs. per Sleep Assessment. Sle ADL's: Independent. Group attendance: In and out of group session. Were meds taken: Yes, without hesitation. Any med S/E: None reported this shift. Pt. takes scheuled Artane 5mg BID. Mental Status Exam Appearance: Disheveled, "dapper" in his lama suit and baseball cap. Eye contact: Good Behavior: Cooperative, some agitation, isolates to room and paces hallway. Speech: Clear, pressured and loud at times. Mood: Labile Affect: Congruent with mood Thought process: Delusional, circumstantial Thought Content: Situational Cognition: A/O X 3, some disorientation to events that lead to admission Insight: Fair to good Judgment: Fair to good Interventions PRN's used: Ativan, Zyprexa 10mg IM Therapeutic interventions: 1:1 assessment, active listening, therapeutic conversation, medication administration/education/monitoring, behavior monitoring and intervention, verbal deescalation, reality orientation, redirection, positive reinforcement, Q 15 minute safety checks. Restraints/seclusion/emergency medication: N/A Justification of Continued Inpatient Treatment: Patient is LPS conserved and will be discharged back to [facility], requires a safe and therapeutic environment until discharge.
[2020-06-14 20:00] VITALS: BP 111/78
[2020-06-14] MEDS: quetiapine 100mg tablet PO PRN (20:05)
--- NOTE | 2020-06-14 23:59 | NUR ---
Nursing Progress Note: Legal hold: LPS Report received from MARTINA Fish with use of SBAR. Why are they here: Pt decompensated at board and care; increasingly agitated with bizarre, paranoid and delusional statements. Access center assessed and brought to ED for evaluation and stabilization. Assessment What happened this shift: Pt was active on the unit during the evening shift. This rn approached pt for 1:1 and pt immediately requested that he have seroquel with his hs meds. Pt was friendly, in a joking mood and was social with this rn for most of evening. Pt stated that he needs the seroquel and zyprexa for "my head, but not for voices." Pt made several bizarre statements throughout the evening but did not have any behavior outbursts. S/I, H/I: Patient denies both. A/VH: Patient denies both. Sleep: see sleep assessment ADL's: Independent. Group attendance: n/a Were meds taken: Yes, without hesitation. Any med S/E: None reported Mental Status Exam Appearance: tank top and pants, slightly dirty Eye contact: Good Behavior: social, humorous Speech: little slurred Mood: funny Affect: Congruent with mood Thought process: Delusional, circumstantial Thought Content: Situational Cognition: A/O X 3 Insight: Fair to good Judgment: Fair to good Interventions PRN's used: seroquel Therapeutic interventions: 1:1 assessment, active listening, therapeutic conversation, medication administration/education/monitoring, behavior monitoring and intervention, verbal deescalation, reality orientation, redirection, positive reinforcement, Q 15 minute safety checks. Restraints/seclusion/emergency medication: N/A Justification of Continued Inpatient Treatment: Patient is LPS conserved and will be discharged back to [facility], requires a safe and therapeutic environment until discharge.
[2020-06-15] MEDS: haloperidol 5mg tablet PO SCH ×3 (07:28→21:01)
[2020-06-15] MEDS: trihexyphenidyl HCL 5 MG tablet PO SCH ×2 (07:28→21:01)
[2020-06-15] MEDS: pantoprazole 40mg Tablet.DR PO SCH (07:28)
[2020-06-15] MEDS: divalproex sod 250mg ER (24-hour) tablet PO SCH (07:29)
[2020-06-15 07:55] VITALS: BP 107/63
--- NOTE | 2020-06-15 10:00 | NUR ---
Group Therapy: Process Group This Clinicians goals for this process group were as follows: (1) Ask scaling questions about Patients current anxiety, depression, and irritability symptoms as a check-in. (2) Share psychoeducation about the importance of being able to identify regular activities, support people, and thoughts (Anchors) that contribute to mental health well-being and stability. (3) Share psychoeducation about how the gradual removal of said activities, people and behaviors may lead to the erosion of mental well-being and stability. (4) Encourage Patients to identify support anchors that they need to maintain in their life that will promote their mental and emotional well-being. (5) Engage Patients in discussion of the topics shared within the group milieu. Patient identified experiencing the following levels of anxiety, depression, and anger/irritability while present in the group milieu. Anxiety: 04/03 Depression: 12/04 Anger/irritability: 12/04 Patient presented as open and cooperative within the group milieu. Patient was dressed in nondescript, personal clothing that were appropriate within the milieu. He wore a dark hat, a dark smallwood suit jacket over a dark button up shirt, with dark smallwood dress slacks and yellow nonslip socks. Patient's thought content was clear and concrete. Patient's thought process varied from being clear, coherent, and linear, to being marked by flight of ideas, and tangential thinking. This Clinician utilized the metaphor of a fisherman in a boat with many anchors, to keep him from "drifting in the current," as a metaphor to describe the importance of having numerous interventions that one could utilize to stay grounded in a place of optimal mental health. It was this Clinician's impression, that Patient may have focused on the literal symbol of the fisherman having many anchors, instead of the principle of identifying interventions to assist him in his mental health based upon his comments his session. Patient presented as verbally engaged, and nonobtrusive during the process group. Angelo Marks MA, CAFETERIA OPERATOR Addendum: 06/15/20 at 1128 by Angelo Marks SS Amended: Links added.
--- NOTE | 2020-06-15 15:24 | NUR ---
Nursing Progress Note: Hanh Legal hold: LPS Report received from MARTINA Fish with use of SBAR. Why are they here: Pt decompensated at board and care; increasingly agitated with bizarre, paranoid and delusional statements. Access center assessed and brought to ED for evaluation and stabilization. Assessment What happened this shift: Client was in bed to begin the shift but was soon awake and visible on the unit. He loudly requested his am medications and it was given without problems. Client behavior is appropriate for unit and he has no somatic complaints. Client reported to am meal and soon was walking on unit. Client has been social and appropriate so far this shift. This client started to escalate around 1100 hours but redirected with staff intervention. He was redirected without any problems. Client is active and social on the unit. Visited with treating Psychiatrist today and was brighter after the encounter. No behavioral issues as of this writing (1523 hours). S/I, H/I: Patient denies both. A/VH: Patient denies both. Sleep: 9.5 ADL's: Independent. Group attendance: no Were meds taken: yes Any med S/E: None reported Mental Status Exam: Appearance: Eye contact: Good Behavior: social, humorous Speech: little slurred Mood: funny Affect: Congruent with mood Thought process: Delusional, circumstantial Thought Content: Situational Cognition: A/O X 3 Insight: Fair to good Judgment: Fair to good Interventions PRN's used: Therapeutic interventions: 1:1 assessment, active listening, therapeutic conversation, medication administration/education/monitoring, behavior monitoring and intervention, verbal deescalation, reality orientation, redirection, positive reinforcement, Q 15 minute safety checks. Restraints/seclusion/emergency medication: N/A Justification of Continued Inpatient Treatment: Patient is LPS conserved and will be discharged back to [facility], requires a safe and therapeutic environment until discharge.
[2020-06-15 19:47] VITALS: BP 126/90
[2020-06-15] MEDS: divalproex 250mg tablet, delayed-release PO SCH (21:01)
--- NOTE | 2020-06-16 | NUR ---
Nursing Progress Note: Legal hold: [facility] conservatorship Report received from Vinod RN with use of SBAR Why are they here: Pt decompensated at board and care; increasingly agitated with bizarre, paranoid and delusional statements. Access center assessed and brought to ED for evaluation and stabilization. Assessment What has happened this shift: The patient was up on the unit and pacing in the hallway or sitting on the chair in his room. He is dressed in a suit coat. He appears clean and reported he showered last night. He stated he had good day then began to show this staff all of his new clothing items. He stated that he has been sleeping and eating well. He reports his concentration and focus are "pretty lousy" He denied hearing voices. He was approached for the evening medication pass and he made an odd comment then poked this senior technical writer in the side and stated, "like this?" He was very friendly and cooperative. He had an incident with a male peer who was going through the garbage and Hardik was upset by that and told the patient he could get sick from doing that and then he attempted to physically intervene to stop the other patient from going through the garbage but was easily redirected. He denies thoughts to harm himself or others. He was medication compliant. He denies medication side effects. His insight and judgement are impaired. He is alert and oriented. Justification of Continued Inpatient Treatment: The patient is a conserved patient and is pending placement as arranged by the public guardians office.
--- NOTE | 2020-06-16 07:07 | NUR ---
HAS BEEN TRIED ON CLOZARIL Per [facility], "tried Clozapine for a very very short period of time and discontinued due to ANC dropping below 1500 cell/uL. Prescription was 100mg tabs take 4 at bed time." LEXIE Squires
--- NOTE | 2020-06-16 07:27 | NUR ---
Faxed placement packet again to [facility] office as they supposedly did not receive it on 06/14/20. LEXIE Squires
[2020-06-16] MEDS: pantoprazole 40mg Tablet.DR PO SCH (07:59)
[2020-06-16] MEDS: trihexyphenidyl HCL 5 MG tablet PO SCH ×2 (07:59→20:28)
[2020-06-16] MEDS: haloperidol 5mg tablet PO SCH ×3 (07:59→20:28)
[2020-06-16] MEDS: divalproex 250mg tablet, delayed-release PO SCH ×2 (07:59→20:28)
[2020-06-16 08:00] VITALS: BP 111/69
--- NOTE | 2020-06-16 10:00 | NUR ---
Group Therapy: Process Group This Clinicians goal for this process group were as follows: (1) Share psychoeducation about core beliefs and how these beliefs shapes how one views reality. (2) Compare and contrast how people with different core beliefs might interpret an identical situation differently. (3) Discuss how changing negative core beliefs to more balanced, helpful, and rational alternatives can lead to improved behaviors and mood. (4) Process Clients thoughts and reflections on this topic within the group milieu. Patient presented as open and cooperative within the group milieu. Patient was dressed in personal, nondescript clothing that were appropriate within the milieu. He wore a black hat, a smallwood suit jacket over a black button up shirt, smallwood dress slacks, and yellow non-slip socks. Patient's thought content was clear and concrete. Patient's thought process was occasionally clear, coherent, and linear; however there were clear exceptions where Patient's thought process was marked by clear delusions. For example, Patient reported that he enjoyed science as a child and stated, "I built a mousetrap once that sent a mouse back in time." At the beginning of the process group, Patient reported that he didn't want to do an initial check-in regarding scaling questions about his levels of anxiety, depression, and anger/irritability noting that he felt, "Frustrated." Patient was able to make the occasional insightful comment during the process group showing awareness that having a positive/rational core belief, as opposed to a negative/irrational core belief, could alter the way that one views an identical situation to promote more adaptive thoughts, feelings, and personal actions. Angelo Marks MA, JOINT SUPERVISOR Addendum: 06/16/20 at 1156 by Angelo Marks SS Amended: Links added.
--- NOTE | 2020-06-16 15:26 | NUR ---
Nursing Progress Note: Legal hold: LPS Client on involuntary status for GD Report received from RN with use of SBAR. Why are they here: Pt decompensated at board and care; increasingly agitated with bizarre, paranoid and delusional statements. Access center assessed and brought to ED for evaluation and stabilization. Assessment Received Pt sleeping in bed w/o distress at beginning of shift. Pt cooperative with vitals and AM medications. Pt asked for his AM meds before breakfast and this RN was able to get them to him. Pt ate all meals well and interacted with others during meals well. Pt makes grandiose statements r/t his past and current professions. Overall pleasant and cooperative today and in euthymic mood. Pt proud of his new pants and other clothes brought by [employer] recently. Pt enjoyed snacks and watched TV in afternoon. Wants to return to [facility]. S/I, H/I: Pt denies A/VH: Pt denies Sleep: Napped ADL's: Independent. Group attendance: Yes Were meds taken: Yes Any med S/E: None reported or observed Mental Status Exam Appearance: Casual in lama suit top and new pants Eye contact: Good Behavior: Pleasant, cooperative Speech: Slow, clear, audible Mood: Euthymic Affect: Congruent with mood Thought process: Delusional, circumstantial Thought Content: Enjoying the day Cognition: A/O X 3, some disorientation to events that lead to admission Insight: Fair to good Judgment: Fair to good Interventions PRN's used: Therapeutic interventions: 1:1 assessment, active listening, therapeutic conversation, medication administration/education/monitoring, behavior monitoring and intervention; reality orientation, redirection, positive reinforcement, Q 15 minute safety checks. Restraints/seclusion/emergency medication: N/A Justification of Continued Inpatient Treatment: Patient needs interruption of current crisis with adjustment of medication in a safe and therapeutic environment, plan is for him to return to [facility].
[2020-06-16 20:09] VITALS: BP 109/66
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
[2020-06-17] MEDS: divalproex 250mg tablet, delayed-release PO SCH ×2 (07:22→20:48)
[2020-06-17] MEDS: pantoprazole 40mg Tablet.DR PO SCH (07:22)
[2020-06-17] MEDS: haloperidol 5mg tablet PO SCH ×3 (07:22→20:48)
[2020-06-17] MEDS: trihexyphenidyl HCL 5 MG tablet PO SCH ×2 (07:23→20:50)
[2020-06-17 08:00] VITALS: BP 95/71
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
[2020-06-17] MEDS: acetaminophen 325mg tablet PO PRN (12:09)
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
[2020-06-17 20:21] VITALS: BP 119/81
[2020-06-17] MEDS: LORazepam 1 MG tablet PO PRN (20:49)
--- NOTE | 2020-06-18 04:42 | NUR ---
Nursing Progress Note: Legal hold: LPS Report received from RN with use of SBAR. Why are they here: Pt decompensated at board and care; increasingly agitated with bizarre, paranoid and delusional statements. Access center assessed and brought to ED for evaluation and stabilization. Assessment What happened this shift: Patient walking the unit at the beginning of shift. Pleasant and cooperative with care; compliant with medication. Patient observed yelling appearing to be responding to internal stimuli. Patient reported "frustration" but reports "not important." PRN Ativan provided with positive effect. Patient participated in HS snack and later observed reading at beside prior to bed. Does not appear to be having difficulty sleeping. S/I, H/I: Denies A/VH: Responding to IS Sleep: Refer to sleep assessment ADL's: Independent. Group attendance: no groups this shift Were meds taken: Yes, without hesitation. Any med S/E: None reported or observed Mental Status Exam Appearance: Disheveled, appropriately dressed. Eye contact: Good Behavior: Cooperative, responding to IS, redirectable Speech: Pressured, clear, audible Mood: "Frustrated" Affect: Labile Thought process: Delusional, circumstantial Thought Content: Preoccupations Cognition: A/O X 3 Insight: Fair Judgment: Fair Interventions PRN's used: Ativan Therapeutic interventions: 1:1 assessment, active listening, therapeutic conversation, medication administration/education/monitoring, behavior monitoring and intervention, verbal deescalation, reality orientation, redirection, positive reinforcement, Q 15 minute safety checks. Restraints/seclusion/emergency medication: N/A Justification of Continued Inpatient Treatment: Patient is LPS conserved and will be discharged back to [facility], requires a safe and therapeutic environment until discharge.
[2020-06-18] MEDS: divalproex 250mg tablet, delayed-release PO SCH ×2 (07:43→20:29)
[2020-06-18] MEDS: haloperidol 5mg tablet PO SCH ×3 (07:43→20:29)
[2020-06-18] MEDS: pantoprazole 40mg Tablet.DR PO SCH (07:43)
[2020-06-18] MEDS: trihexyphenidyl HCL 5 MG tablet PO SCH ×2 (07:44→20:29)
[2020-06-18 08:46] VITALS: BP 104/64
[2020-06-18] MEDS: LORazepam 1 MG tablet PO PRN (09:51)
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
[2020-06-18 19:40] VITALS: BP 121/84
--- NOTE | 2020-06-19 04:08 | NUR ---
Nursing Progress Note: Legal hold: LPS Report received from Lon MACK with use of SBAR. Why are they here: Pt decompensated at board and care; increasingly agitated with bizarre, paranoid and delusional statements. Access center assessed and brought to ED for evaluation and stabilization. Assessment What happened this shift: Patient walking the unit and listening to headphones at the beginning of shift. Pleasant and cooperative with all care; compliant with medication. Observed socializing appropriately with peers, smiling and joking, complementing peers and staff. No outbursts this shift. Patient denies SI, HI, A/VH but continues to respond to internal stimuli. Patient participated in HS snack prior to bed. Does not appear to be having difficulty sleeping this shift. S/I, H/I: Denies A/VH: Responding to IS Sleep: Refer to sleep assessment ADL's: Independent. Group attendance: no groups this shift Were meds taken: Yes, without hesitation. Any med S/E: None reported or observed Mental Status Exam Appearance: Disheveled, appropriately dressed. Eye contact: Good Behavior: Pleasant and cooperative, interacting appropriately Speech: Pressured, clear, audible Mood: Euthymic Affect: Congruent Thought process: Circumstantial Thought Content: Complementing peers and staff Cognition: A/O X 3 Insight: Fair Judgment: Fair Interventions PRN's used: None Therapeutic interventions: 1:1 assessment, active listening, therapeutic conversation, medication administration/education/monitoring, behavior monitoring and intervention, verbal deescalation, reality orientation, redirection, positive reinforcement, Q 15 minute safety checks. Restraints/seclusion/emergency medication: N/A Justification of Continued Inpatient Treatment: Patient is LPS conserved and will be discharged back to [facility], requires a safe and therapeutic environment until discharge.
[2020-06-19] MEDS: haloperidol 5mg tablet PO SCH ×3 (07:48→20:47)
[2020-06-19] MEDS: pantoprazole 40mg Tablet.DR PO SCH (07:48)
[2020-06-19 08:00] VITALS: BP 116/62
[2020-06-19] MEDS ORDERED: divalproex sodium 500mg tablet.DR PO SCH (08:33)
[2020-06-19] MEDS: trihexyphenidyl HCL 5 MG tablet PO SCH ×2 (08:40→20:48)
[2020-06-19] MEDS: divalproex sodium 500mg tablet.DR PO SCH ×2 (08:49→20:48)
--- NOTE | 2020-06-19 16:25 | NUR ---
Nursing Progress Note: Legal hold: LPS Report received from MARTINA Lamb with use of SBAR. Why are they here: Pt decompensated at board and care; increasingly agitated with bizarre, paranoid and delusional statements. Access center assessed and brought to ED for evaluation and stabilization. Assessment What happened this shift: Patient ambulating and listening on headphones. Pleasant and cooperative with all care; compliant with medication. Observed socializing appropriately with peers and staff. Joking at times. No outbursts this shift. S/I, H/I: Denies A/VH: Responding to IS Sleep: Refer to sleep assessment ADL's: Independent. Group attendance: no groups this shift Were meds taken: Yes, without hesitation. Any med S/E: None reported or observed Mental Status Exam Appearance: Disheveled, appropriately dressed. Eye contact: Good Behavior: Pleasant and cooperative, interacting appropriately Speech: Pressured, clear, audible Mood: Euthymic Affect: Congruent Thought process: Circumstantial Thought Content: Complementing peers and staff Cognition: A/O X 3 Insight: Fair Judgment: Fair Interventions PRN's used: None Therapeutic interventions: 1:1 assessment, active listening, therapeutic conversation, medication administration/education/monitoring, behavior monitoring and intervention, verbal deescalation, reality orientation, redirection, positive reinforcement, Q 15 minute safety checks. Restraints/seclusion/emergency medication: N/A Justification of Continued Inpatient Treatment: Patient is LPS conserved and will be discharged back to [facility], requires a safe and therapeutic environment until discharge.
[2020-06-19 19:46] VITALS: BP 114/67
--- NOTE | 2020-06-20 03:16 | NUR ---
Nursing Progress Note: Legal hold: LPS Report received from Lon MACK with use of SBAR. Why are they here: Pt decompensated at board and care; increasingly agitated with bizarre, paranoid and delusional statements. Access center assessed and brought to ED for evaluation and stabilization. Assessment What happened this shift: Patient watching TV and socializing appropriately with peers and staff this shift. Pleasant and cooperative with care; compliant with medication. Denies SI, HI, A/VH but observed responding to IS. Patient smiling while talking about his mother playing the piano when he was a child. Patient observed peer becoming irritable with other and began to mirror her comments but he was easily redirected. He participated in HS snack and shortly after retired to bed. Does not appear to be having difficulty sleeping. S/I, H/I: Denies A/VH: Responding to IS Sleep: Refer to sleep assessment ADL's: Independent. Group attendance: No groups this shift Were meds taken: Yes, without hesitation. Any med S/E: None reported or observed Mental Status Exam Appearance: Disheveled, appropriately dressed. Eye contact: Good Behavior: Pleasant and cooperative, interacting appropriately Speech: Pressured, clear, audible Mood: Euthymic Affect: Congruent Thought process: Circumstantial Thought Content: His mom playing the piano Cognition: A/O X 3 Insight: Fair Judgment: Fair Interventions PRN's used: None Therapeutic interventions: 1:1 assessment, active listening, therapeutic conversation, medication administration/education/monitoring, behavior monitoring and intervention, verbal deescalation, reality orientation, redirection, positive reinforcement, Q 15 minute safety checks. Restraints/seclusion/emergency medication: N/A Justification of Continued Inpatient Treatment: Patient is LPS conserved and will be discharged back to [facility], requires a safe and therapeutic environment until discharge.
[2020-06-20] MEDS: haloperidol 5mg tablet PO SCH ×3 (07:01→20:30)
[2020-06-20] MEDS: pantoprazole 40mg Tablet.DR PO SCH (07:01)
[2020-06-20] MEDS: divalproex sodium 500mg tablet.DR PO SCH ×2 (07:01→20:30)
[2020-06-20] MEDS: trihexyphenidyl HCL 5 MG tablet PO SCH ×2 (07:01→20:30)
[2020-06-20 08:00] VITALS: BP 102/65
--- NOTE | 2020-06-20 10:00 | NUR ---
Group Therapy: Process Group This Clinicians goal for this process group were as follows: (1) Introduce and provide psychoeducation on Arguelles ABC method. (2) Practice working through Arguelles ABC method using examples provided by this Clinician. (3) Encourage Patients to process some of their own reoccurring situations utilizing Arguelles ABC methodology. (4) Process Clients thoughts and reflections on this topic within the group milieu. Patient identified experiencing the following levels of anxiety, depression, and anger/irritability while present in the group milieu. Anxiety: 02/01 Depression: 02/01 Anger/irritability: 02/01 Patient presented as open and cooperative within the group milieu. Patient was dressed in personal clothing that were appropriate within the milieu. Patient wore a dark smallwood suit nayana over a black button up shirt, with smallwood slacks, and yellow non-slip socks. Patient's thought content was clear, and concrete. Patient's thought process varied from clear, coherent, and linear, to being marked by tangential thinking, flight of ideas, and circumstantial thinking. During discussion of Blane' ABC method. The situation of being at [facility] was given as the activating event. Patient shared that if he believed that he was here because he was misdiagnosed, then he reported he would feel "Leery." Patient then reported that if he entertained the belief that he was here on a "technicality," then he would feel more "optimistic." Angelo Marks MA, LEXIE Addendum: 06/20/20 at 1144 by Angelo Marks SS Amended: Links added.
--- NOTE | 2020-06-20 13:55 | NUR ---
75-100% PO intake, great appetite. No nutrition problem. Recommend: 1. continue regular diet 2. weight weekly Addendum: 06/20/20 at [address] Amended: Links added.
[2020-06-20] MEDS: quetiapine 100mg tablet PO PRN (14:16)
--- NOTE | 2020-06-20 16:06 | NUR ---
Nursing Progress Note: Legal hold: LPS Report received from Lon MACK with use of SBAR. Why are they here: Pt decompensated at board and care; increasingly agitated with bizarre, paranoid and delusional statements. Access center assessed and brought to ED for evaluation and stabilization. Assessment What happened this shift: Pleasant and happy today. Brief episode at approximately 1420 where pt was lying on his bed and reported hearing voices in his head. Pt was yelling at them to "go away and leave me alone." Seroquel worked quickly and pt was back up and ambulating in the [place]. Participated in Group Meeting and had great discussion with me afterward. Pt wearing headphones most of the day and was in the group room watching TV. Socializing well with peers and staff. S/I, H/I: Denies A/VH: Responding to IS Sleep: Refer to sleep assessment ADL's: Independent. Group attendance: No groups this shift Were meds taken: Yes, without hesitation. Any med S/E: None reported or observed Mental Status Exam Appearance: Disheveled, appropriately dressed. Eye contact: Good Behavior: Pleasant and cooperative, interacting appropriately Speech: Pressured, clear, audible Mood: Euthymic Affect: Congruent Thought process: Circumstantial Thought Content: His mom playing the piano Cognition: A/O X 3 Insight: Fair Judgment: Fair Interventions PRN's used: Seroquel x1 Therapeutic interventions: 1:1 assessment, active listening, therapeutic conversation, medication administration/education/monitoring, behavior monitoring and intervention, verbal deescalation, reality orientation, redirection, positive reinforcement, Q 15 minute safety checks. Restraints/seclusion/emergency medication: N/A Justification of Continued Inpatient Treatment: Patient is LPS conserved and will be discharged back to [facility], requires a safe and therapeutic environment until discharge.
[2020-06-20 20:14] VITALS: BP 115/66
--- NOTE | 2020-06-21 03:48 | NUR ---
Nursing Progress Note: Legal hold: LPS Report received from Lon MACK with use of SBAR. Why are they here: Pt decompensated at board and care; increasingly agitated with bizarre, paranoid and delusional statements. Access center assessed and brought to ED for evaluation and stabilization. Assessment What happened this shift: Patient ambulating the unit at the beginning of shift. Pleasant and cooperative with all care; compliant with all medication. Patient explains "having a good day considering' and looks forward to future discharge. Patient denies SI, HI, A/VH, occasionally observed responding to IS. No outbursts or behaviors observed this shift. Participated in HS snack before retiring to bed; does not appear to be having difficulty sleeping. S/I, H/I: Denies A/VH: Responding to IS Sleep: Refer to sleep assessment ADL's: Independent. Group attendance: No groups this shift Were meds taken: Yes, without hesitation. Any med S/E: None reported or observed Mental Status Exam Appearance: Neat, appropriately dressed. Eye contact: Good Behavior: Pleasant and cooperative, interacting appropriately Speech: Pressured, clear, audible Mood: Euthymic Affect: Congruent Thought process: Circumstantial Thought Content: Looking forward to discharge Cognition: A/O X 3 Insight: Fair Judgment: Fair Interventions PRN's used: None Therapeutic interventions: 1:1 assessment, active listening, therapeutic conversation, medication administration/education/monitoring, behavior monitoring and intervention, verbal deescalation, reality orientation, redirection, positive reinforcement, Q 15 minute safety checks. Restraints/seclusion/emergency medication: N/A Justification of Continued Inpatient Treatment: Patient is LPS conserved and will be discharged back to [facility], requires a safe and therapeutic environment until discharge.
[2020-06-21] MEDS: haloperidol 5mg tablet PO SCH ×3 (07:57→20:23)
[2020-06-21] MEDS: pantoprazole 40mg Tablet.DR PO SCH (07:57)
[2020-06-21] MEDS: divalproex sodium 500mg tablet.DR PO SCH ×2 (07:57→20:23)
[2020-06-21] MEDS: trihexyphenidyl HCL 5 MG tablet PO SCH ×2 (07:57→20:23)
[2020-06-21 08:02] VITALS: BP 100/61
--- NOTE | 2020-06-21 12:11 | NUR ---
PLACEMENT Hardik's packet is at the following: Leslie Bhakta, Lauro Rsoa, and Bhargavi Estrada. LEXIE Squires
--- NOTE | 2020-06-21 14:43 | NUR ---
NURSING PROGRESS NOTE Legal hold: LPS Report received from MARTINA Fish Why are they here: Pt decompensated at board and care; increasingly agitated with bizarre, paranoid and delusional statements. Access center assessed and brought to ED for evaluation and stabilization. Assessment What happened this shift: Was yelling in hallway in morning and was asked to lower his voice which angered patient. Started saying angry and belligerent comments to everyone. He was asked to not speak to people in that manner. He eventually calmed down and stopped yelling. He has been a bit heightened today as the unit has been. When unit got quieter so did patient. Will not take prn's. S/I, H/I: Denies A/VH: Denies Sleep: None ADL's: Independent. Group attendance: no Were meds taken: Yes Any med S/E: None reported or observed Mental Status Exam Appearance: wears sleeveless T-shirt Eye contact: Direct Behavior: angry and belligerent Speech: Pressured Mood: angry Affect: Congruent with mood Thought process: Delusional, circumstantial Thought Content: as described above Cognition: A/O X 3 Insight: poor Judgment: poor Interventions PRN's used: None Therapeutic interventions: 1:1 assessment, active listening, therapeutic conversation, medication administration/education/monitoring, behavior monitoring and intervention, verbal deescalation, reality orientation, redirection, positive reinforcement, Q 15 minute safety checks. Restraints/seclusion/emergency medication: N/A Justification of Continued Inpatient Treatment: Patient is LPS conserved and will be discharged back to [facility], requires a safe and therapeutic environment until discharge.
[2020-06-21] MEDS: LORazepam 1 MG tablet PO PRN ×2 (15:08→22:08)
[2020-06-21 19:15] VITALS: BP 119/86
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
[2020-06-22] MEDS: haloperidol 5mg tablet PO SCH ×3 (07:45→20:25)
[2020-06-22] MEDS: pantoprazole 40mg Tablet.DR PO SCH (07:46)
[2020-06-22] MEDS: trihexyphenidyl HCL 5 MG tablet PO SCH ×2 (07:46→20:23)
[2020-06-22] MEDS: divalproex sodium 500mg tablet.DR PO SCH ×2 (07:46→20:23)
[2020-06-22 08:12] VITALS: BP 90/52
[2020-06-22] MEDS: LORazepam 1 MG tablet PO PRN (08:45)
--- NOTE | 2020-06-22 13:33 | NUR ---
NURSING PROGRESS NOTE Legal hold: LPS Report received from MARTINA Fish Why are they here: Pt decompensated at board and care; increasingly agitated with bizarre, paranoid and delusional statements. Access center assessed and brought to ED for evaluation and stabilization. Assessment What happened this shift: Delusional statements today, states "jay has a second notebook that he is writing down stuff that will hurt us." States, "I'm really mad at God, God sends messages to people thru me and its really not nice, I don't like it." Agitated and arguing with charge nurse and other male nurse later in the day. Required patient took Ativan prn. S/I, H/I: Denies A/VH: Denies Sleep: None ADL's: Independent. Group attendance: no Were meds taken: Yes Any med S/E: None reported or observed Mental Status Exam Appearance: disheveled Eye contact: Direct Behavior: angry and belligerent Speech: Pressured Mood: angry Affect: Congruent with mood Thought process: Delusional Thought Content: as described above Cognition: A/O X 3 Insight: poor Judgment: poor Interventions PRN's used: None Therapeutic interventions: 1:1 assessment, active listening, therapeutic conversation, medication administration/education/monitoring, behavior monitoring and intervention, verbal deescalation, reality orientation, redirection, positive reinforcement, Q 15 minute safety checks. Restraints/seclusion/emergency medication: N/A Justification of Continued Inpatient Treatment: Patient is LPS conserved and will be discharged back to [facility], requires a safe and therapeutic environment until discharge.
[2020-06-22] MEDS: LORazepam 0.5 MG tablet PO SCH (20:23)
[2020-06-22 20:32] VITALS: BP 96/62
--- NOTE | 2020-06-23 01:57 | NUR ---
Nursing Progress Note: Legal hold: LPS Report received from Vinod RN with use of SBAR. Why are they here: Pt decompensated at board and care; increasingly agitated with bizarre, paranoid and delusional statements. Access center assessed and brought to ED for evaluation and stabilization. Assessment What happened this shift: Patient ambulating the phillips at the beginning of shift and greeted commercial lines underwriter with a big smile. Pleasant and cooperative with all care; compliant with medication. Patient started Ativan 0.5mg BID this shift with no ASE observed or reported. No PRNs needed this shift. Patient had no outbursts and no inappropriate conversation with peers or staff observed. He participated in HS snack and quickly retired to bed. Does not appear to be having difficulty sleeping. S/I, H/I: Denies A/VH: Denies, appears preoccupied Sleep: Refer to sleep assessment ADL's: Independent. Group attendance: No groups this shift Were meds taken: Yes, without incident. Any med S/E: None reported or observed Mental Status Exam Appearance: Neat, appropriately dressed. Eye contact: Good Behavior: Pleasant and cooperative with care, socializing appropriately Speech: Pressured, clear, audible Mood: Euthymic Affect: Blunted Thought process: Circumstantial; no delusional thought content expressed Thought Content: Bored, happy to see commercial lines underwriter Cognition: A/O X 3 Insight: Fair Judgment: Fair Interventions PRN's used: Ativan Therapeutic interventions: 1:1 assessment, active listening, therapeutic conversation, medication administration/education/monitoring, behavior monitoring and intervention, verbal deescalation, reality orientation, redirection, positive reinforcement, Q 15 minute safety checks. Restraints/seclusion/emergency medication: N/A Justification of Continued Inpatient Treatment: Patient is LPS conserved and will be discharged back to [facility], requires a safe and therapeutic environment until discharge.
[2020-06-23 07:45] VITALS: BP 108/54
[2020-06-23] MEDS: trihexyphenidyl HCL 5 MG tablet PO SCH ×2 (08:04→20:11)
[2020-06-23] MEDS: divalproex sodium 500mg tablet.DR PO SCH ×2 (08:04→20:12)
[2020-06-23] MEDS: pantoprazole 40mg Tablet.DR PO SCH (08:04)
[2020-06-23] MEDS: haloperidol 5mg tablet PO SCH ×3 (08:04→20:12)
[2020-06-23] MEDS: LORazepam 0.5 MG tablet PO SCH ×2 (08:04→20:14)
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
--- NOTE | 2020-06-23 13:43 | NUR ---
Nursing Progress Note: Legal hold: LPS Report received from Veronica Da Silva RN with use of SBAR. Why are they here: Pt decompensated at board and care; increasingly agitated with bizarre, paranoid and delusional statements. Access center assessed and brought to ED for evaluation and stabilization. Assessment What happened this shift: Pt requested his medications before breakfast. Pt denied depression/SI/AH/VH. Pt stated that he wants liquid Haldol instead of the pill form as he believes the liquid works better. Encouraged him to speak with DIOGENES Baum about it today. Pt has been cooperative with unit procedures, no verbal outbursts or agitation this shift. S/I, H/I: Pt denies A/VH: Pt denies. Sleep: Pt slept 8.25 hours last night per noc shift report. ADL's: Independent. Group attendance: Yes Were meds taken: Yes Any med S/E: None noted or reported. Mental Status Exam Appearance: Clean, dressed in his smallwood suit. Eye contact: Good Behavior: Pleasant, cooperative, paces unit listening to radio headphones, socializes with peers. Speech: Clear, audible, slow drawl. Mood: Good Affect: Blunted Thought process: [place], circumstantial. Thought Content: Wants liquid Haldol instead of pills. Cognition: A/O X 3 Insight: Fair to good Judgment: Fair Interventions PRN's used: Ativan Therapeutic interventions: 1:1 assessment, active listening, therapeutic conversation, medication administration/education/monitoring, encouragement to attend groups, behavior monitoring and intervention, positive reinforcement, Q 15 minute safety checks. Restraints/seclusion/emergency medication: N/A Justification of Continued Inpatient Treatment: Patient is LPS conserved and requires a safe and therapeutic environment until appropriate placement found and he is discharged.
--- NOTE | 2020-06-23 16:30 | NUR ---
PLACEMENT Hardik's packet is at the following: Leslie Bhakta, Chris Verma, Lauro, Bhargavi Estrada, and Mauricio Rosa (opening soon hopefully). LEXIE Squires
[2020-06-23] MEDS: acetaminophen 325mg tablet PO PRN (16:31)
[2020-06-23 19:00] VITALS: BP 121/75
--- NOTE | 2020-06-24 05:02 | NUR ---
Nursing Progress Note: Legal hold: LPS Report received from Lon MACK with use of SBAR. Why are they here: Pt decompensated at board and care; increasingly agitated with bizarre, paranoid and delusional statements. Access center assessed and brought to ED for evaluation and stabilization. Assessment What happened this shift: Patient laying down at the beginning of shift. Pleasant and cooperative with all care; compliant with medication. Denies SI, HI, A/VH. Patient participated in HS snack, No outbursts or inappropriate conversation observed this shift. Appears to be sleeping without difficulty. S/I, H/I: Pt denies A/VH: Pt denies. Sleep: Refer to sleep assessment ADL's: Independent. Group attendance: No groups this shift Were meds taken: Yes, without incident Any med S/E: None observed or reported. Mental Status Exam Appearance: Clean, dressed appropriately Eye contact: Good Behavior: Pleasant, cooperative, isolative Speech: Clear, audible, slow drawl. Mood: Tired Affect: Blunted Thought process: Circumstantial Thought Content: Cognition: A/O X 3 Insight: Fair to good Judgment: Fair Interventions PRN's used: None Therapeutic interventions: 1:1 assessment, active listening, therapeutic conversation, medication administration/education/monitoring, encouragement to attend groups, behavior monitoring and intervention, positive reinforcement, Q 15 minute safety checks. Restraints/seclusion/emergency medication: N/A Justification of Continued Inpatient Treatment: Patient is LPS conserved and requires a safe and therapeutic environment until appropriate placement found and he is discharged.
[2020-06-24 07:51] VITALS: BP 101/64
[2020-06-24] MEDS: LORazepam 0.5 MG tablet PO SCH ×2 (07:52→19:48)
[2020-06-24] MEDS: haloperidol 5mg tablet PO SCH ×3 (07:52→20:05)
[2020-06-24] MEDS: divalproex sodium 500mg tablet.DR PO SCH ×2 (07:52→20:05)
[2020-06-24] MEDS: trihexyphenidyl HCL 5 MG tablet PO SCH ×2 (07:52→19:47)
[2020-06-24] MEDS: pantoprazole 40mg Tablet.DR PO SCH (07:53)
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
--- NOTE | 2020-06-24 10:00 | NUR ---
Group Therapy: Process Group This Clinicians goals for this process group were as follows: (1) Ask scaling questions about Patients current anxiety, depression, and irritability symptoms as a check-in. (2) Share psychoeducation about emotional escalation as it relates to stress and negative symptoms, Fight, flight, freeze. (2) Provide psychoeducation on the STOPP acronym: Stop, Take a Breath, Observe the situation, Put things into perspective, and, Practice what works. (3) Share psychoeducation on principles of mindfulness and emotional relaxation techniques that Patients may utilize to reduce the acuity of unwanted emotional escalation. (5) Process Clients thoughts and reflections on this topic within the group milieu. Patient identified experiencing the following levels of anxiety, depression, and anger/irritability while present in the group milieu. Anxiety: 0/10 Depression: 0/10 Anger/irritability: 0/10 Patient quietly and nonobtrusively entered and exited the group milieu on several different occasions, though he did not contribute verbally in the discussion of the STOPP method of emotional deescalation. Patient was dressed in nondescript, personal clothing that were appropriate within the milieu. Patient wore headphones during the majority of the time that he spent within the process group. This Clinician observed Patient move around from [id number] several times, when he was present in the group milieu. One one occasion, when Patient was in the milieu, without the headphones on this Clinician asked him scaling questions about his anxiety, depression, and anxiety symptoms. Patient reported that they were all low--0/10. Patient presented as nonobtrusive during the process group. Angelo Marks MA, WELDER APPRENTICE GAS Addendum: 06/24/20 at 1142 by Angelo Marks Amended: Links added.
[2020-06-24] MEDS: acetaminophen 325mg tablet PO PRN (11:40)
--- NOTE | 2020-06-24 14:34 | NUR ---
Nursing Progress Note: Legal hold: LPS Report received from Veronica Da Silva RN with use of SBAR. Why are they here: Pt decompensated at board and care; increasingly agitated with bizarre, paranoid and delusional statements. Access center assessed and brought to ED for evaluation and stabilization. Assessment What happened this shift: Pt approached this RN before breakfast to ask for his morning medications. He asked, "did you know I want the Haldol decanoate?" Asked pt if he wished to have an injection, he replied, "no, you can take it by mouth." Reality orientation attempted that Haldol Dec is only given via injection. Pt remained adamant that there was an oral formulation, "not in a shot, but in a liquid by mouth...because I'm having trouble digesting it, I don't need it all the time, only sometimes." Pt complained of his feet hurting while this RN was at lunch, another RN gave him prn Tylenol 650 mg at 1140. Pt had complained of the same thing yesterday due to walking around in nonskid socks on hard wood floors. Found pt's shoes in his locker, removed laces and used a couple of Hickies rubber shoe ties on each shoe. Pt expressed foot pain relief and thanks. Also provided pt with a brand new purple t-shirt that was in his locker, pt was excited about it and changed into his new shirt. S/I, H/I: Pt denies A/VH: Pt denies. Sleep: Pt slept 8.25 hours last night per sleep assessment. ADL's: Independent. Group attendance: Yes Were meds taken: Yes Any med S/E: None noted or reported. Mental Status Exam Appearance: Clean, dressed in his smallwood suit jacket over green hospital scrubs with a camo baseball cap worn backwards. Pt changed into new purple t-shirt with smallwodo slacks and his shoes later in the shift. Eye contact: Good Behavior: Pleasant, cooperative, paces unit listening to radio headphones, socializes with peers. Speech: Clear, audible, slow drawl. Mood: Good Affect: Calm Thought process: Mildly delusional and perseverative today though cooperative and easily redirected. Thought Content: Haldol Dec comes in a liquid and he wants it. Cognition: A/O X 3 Insight: Fair to good Judgment: Fair Interventions PRN's used: Tylenol 650 mg Therapeutic interventions: 1:1 assessment, active listening, therapeutic conversation, medication administration/education/monitoring, provided footwear for foot pain relief, encouragement to attend groups, behavior monitoring and intervention, reality orientation, positive reinforcement, Q 15 minute safety checks. Restraints/seclusion/emergency medication: N/A Justification of Continued Inpatient Treatment: Patient is LPS conserved and requires a safe and therapeutic environment until appropriate placement found and he is discharged.
[2020-06-24 19:59] VITALS: BP 117/69
--- NOTE | 2020-06-24 22:57 | NUR ---
Nursing Progress Note: Legal hold: LPS Report received from Susanne MACK with use of SBAR. Why are they here: Pt decompensated at board and care; increasingly agitated with bizarre, paranoid and delusional statements. Access center assessed and brought to ED for evaluation and stabilization. Assessment What happened this shift: Patient laying down at the beginning of shift. Pleasant and cooperative with all care, but mostly isolated to his room all evening. Pt reported that he had an "ok day" and was feeling good this evening. Pt joked and was friendly during 1:1 assessment and accepted hs meds without issue. S/I, H/I: Pt denies A/VH: Pt denies. Sleep: Refer to sleep assessment ADL's: Independent. Group attendance: No groups this shift Were meds taken: Yes, without incident Any med S/E: None observed or reported. Mental Status Exam Appearance: Clean, dressed appropriately Eye contact: Good Behavior: Pleasant, cooperative, isolative Speech: Clear, audible, slow drawl. Mood: Tired Affect: Blunted Thought process: Circumstantial Thought Content: Cognition: A/O X 3 Insight: Fair to good Judgment: Fair Interventions PRN's used: None Therapeutic interventions: 1:1 assessment, active listening, therapeutic conversation, medication administration/education/monitoring, encouragement to attend groups, behavior monitoring and intervention, positive reinforcement, Q 15 minute safety checks. Restraints/seclusion/emergency medication: N/A Justification of Continued Inpatient Treatment: Patient is LPS conserved and requires a safe and therapeutic environment until appropriate placement found and he is discharged.
[2020-06-25] MEDS: divalproex sodium 500mg tablet.DR PO SCH ×2 (07:22→20:26)
[2020-06-25] MEDS: pantoprazole 40mg Tablet.DR PO SCH (07:22)
[2020-06-25] MEDS: haloperidol 5mg tablet PO SCH ×3 (07:22→20:28)
[2020-06-25] MEDS: trihexyphenidyl HCL 5 MG tablet PO SCH ×2 (07:22→20:26)
[2020-06-25] MEDS: LORazepam 0.5 MG tablet PO SCH ×2 (07:22→20:26)
[2020-06-25 07:37] VITALS: BP 107/62
[2020-06-25 07:57] VITALS: BP 107/62
--- NOTE | 2020-06-25 13:30 | NUR ---
Nursing Progress Note: Legal hold: LPS Report received from Veronica Da Silva RN with use of SBAR. Why are they here: Pt decompensated at board and care; increasingly agitated with bizarre, paranoid and delusional statements. Access center assessed and brought to ED for evaluation and stabilization. Assessment What happened this shift: Pt approached this RN early in the shift before 0700 to ask for his meds. Asked pt if he was having increased symptoms. Pt replied in his slow drawl, "no, I just want my meds." Explained that this RN was just about to go get the medications ready and I would get them to him shortly. Pt indicated understanding and patiently waited from meds. After pt received his morning meds, he stated, "I'm not gonna play pity to the republican." Clarified with pt that he was not going to have a pity republican today. Pt responded with "no, I'm not going to play either." Asked pt a little later how he was doing. He replied, "I'm doin' pretty good, it's the weekend, kind of slow." Pt attended morning group. After morning group pt made a comment about not needing other people to speak to God through them. He then continued with, "It all depends on the abdomen...on if your heart is in the right place." Pt denied depression, SI/HI/AH/VH. S/I, H/I: Pt denies A/VH: Pt denies. Sleep: Pt slept 7.75 hours last night per sleep assessment. ADL's: Independent. Group attendance: Yes Were meds taken: Yes Any med S/E: None noted or reported. Mental Status Exam Appearance: Clean, dressed in his smallwood pants, a purple shirt, his brown shoes, and a camo baseball cap. Eye contact: Good Behavior: Pleasant, cooperative, paces unit listening to radio headphones, socializes with peers. Speech: Clear, audible, slow drawl. Mood: "pretty good" Affect: Calm Thought process: slightly disorganized Thought Content: He doesn't need anyone to speak to God for him. Cognition: A/O X 3 Insight: Fair to good Judgment: Fair Interventions PRN's used: None Therapeutic interventions: 1:1 assessment, active listening, therapeutic conversation, medication administration/education/monitoring, encouragement to attend groups, behavior monitoring and intervention, reality orientation, positive reinforcement, Q 15 minute safety checks. Restraints/seclusion/emergency medication: N/A Justification of Continued Inpatient Treatment: Patient is LPS conserved and requires a safe and therapeutic environment until appropriate placement found and he is discharged.
[2020-06-25 20:00] VITALS: BP 119/76
--- NOTE | 2020-06-26 00:24 | NUR ---
Nursing Progress Note: Legal hold: LPS Report received from Susanne MACK with use of SBAR. Why are they here: Pt decompensated at board and care; increasingly agitated with bizarre, paranoid and delusional statements. Access center assessed and brought to ED for evaluation and stabilization. Assessment What happened this shift: Pt was in his room at change of shift. Pt reports being agitated earlier with his roommate but worked it out. Asked him why he hanging out in his room he states I'm just resting. Pt said he feels good and waiting for meds so he can go to bed. He was med compliant and denied SI/HI/AH/VH. S/I, H/I: Pt denies A/VH: Pt denies. Sleep: Pt slept 7.75 hours last night per sleep assessment. ADL's: Independent. Group attendance: Yes Were meds taken: Yes Any med S/E: None noted or reported. Mental Status Exam Appearance: Clean, dressed in his smallwood pants, a purple shirt, his brown shoes, and a camo baseball cap. Eye contact: Good Behavior: Pleasant, cooperative, paces unit listening to radio headphones, socializes with peers. Speech: Clear, audible, slow drawl. Mood: "pretty good" Affect: Calm Thought process: slightly disorganized Thought Content: He doesn't need anyone to speak to God for him. Cognition: A/O X 3 Insight: Fair to good Judgment: Fair Interventions PRN's used: None Therapeutic interventions: 1:1 assessment, active listening, therapeutic conversation, medication administration/education/monitoring, encouragement to attend groups, behavior monitoring and intervention, reality orientation, positive reinforcement, Q 15 minute safety checks. Restraints/seclusion/emergency medication: N/A Justification of Continued Inpatient Treatment: Patient is LPS conserved and requires a safe and therapeutic environment until appropriate placement found and he is discharged.
[2020-06-26] MEDS: trihexyphenidyl HCL 5 MG tablet PO SCH ×2 (07:08→20:18)
[2020-06-26] MEDS: pantoprazole 40mg Tablet.DR PO SCH (07:08)
[2020-06-26] MEDS: haloperidol 5mg tablet PO SCH ×3 (07:08→20:17)
[2020-06-26] MEDS: divalproex sodium 500mg tablet.DR PO SCH ×2 (07:08→20:17)
[2020-06-26] MEDS: LORazepam 0.5 MG tablet PO SCH ×2 (07:08→20:17)
[2020-06-26] MEDS: acetaminophen 325mg tablet PO PRN (07:12)
[2020-06-26 08:00] VITALS: BP 97/60
--- NOTE | 2020-06-26 14:49 | NUR ---
Nursing Progress Note: Legal hold: LPS Report received from Veronica D aSilva RN with use of SBAR. Why are they here: Pt decompensated at board and care; increasingly agitated with bizarre, paranoid and delusional statements. Access center assessed and brought to ED for evaluation and stabilization. Assessment What happened this shift: Received pt. up sitting in the hallway at the beginning of the shift, he animatedly greeted this writer producer and requested his morning medications. 1:1 completed at bedside, pt. denies any S/I, H/I, or current A/V/GATES, however states, "'Sometimes I see eyeballs or hear others talking through me." He also admits to having occasional paranoid thoughts that others want to hurt him, but not at this time. Pt. does admit that he feels a little depressed, and when questioned by this writer producer regarding why, states, "The place I was living at didn't understand me, they tried to figure out what my problem was, but I couldn't either." This writer producer provided reassurance to pt. that the team continues to look for new placement for him, and he reported understanding. Pt. isolated in his room throughout the morning, however did attend meals. However, in the afternoon, pt. became increasingly paranoid delusional, anxious, and agitated. He requested his scheduled Haldol, and was administered while pt. in his room wearing headphones. Pt. then followed this writer producer out of his room and sat in the hallway, continuing to wear headphones. He began pointing at this writer producer and stating agitatedly, "She took all my credit cards!" This writer producer attempted to console/redirect pt., however he remained fixed in this delusion and walked away from writer producer stating, "Ana Ramirez, leave me alone!" Continued to monitor pt. and he was able to self-redirect his behaviors. Will endorse to Noc shift and monitor. S/I, H/I: Denies A/VH: Denies current A/V/GATES, however states, "'Sometimes I see eyeballs or hear others talking through me." Sleep: Pt reports he slept well, slept 7.75 hours last night per sleep assessment. ADL's: Independent. Group attendance: No Were meds taken: Yes Any med S/E: None Mental Status Exam Appearance: Neat and dressed in his suit with hiking shoes Eye contact: Good Behavior: Cooperative, restless, withdrawn, increasingly anxious, and somewhat agitated Speech: Articulate with a slow drawl. Mood: Animated and pleasant in the morning, however became anxious and agitated in the afternoon Affect: Labile Thought process: Disorganized Thought Content: Paranoid delusions, and occasional A/V/GATES Cognition: A&O X3 (not to why here) Insight: Poor Judgment: Fair Interventions PRN's used: None Therapeutic interventions: Maintained a safe and therapeutic environment, ensured contract for safety, provided clear and simple instructions, attempted to orient to reality, provided direction and positive reassurance as needed, monitored behaviors and need for intervention, and maintained Q 15min safety checks. Restraints/seclusion/emergency medication: N/A Justification of Continued Inpatient Treatment: Patient is LPS conserved and requires a safe and therapeutic environment until appropriate placement found.
[2020-06-26 20:29] VITALS: BP 108/71
--- NOTE | 2020-06-26 22:55 | NUR ---
Nursing Progress Note: Legal hold: LPS Report received from Susanne MACK with use of SBAR. Why are they here: Pt decompensated at board and care; increasingly agitated with bizarre, paranoid and delusional statements. Access center assessed and brought to ED for evaluation and stabilization. Assessment What happened this shift: Pt was in the hallway at change of shift dressed in his suit. He was pleasant and cooperative with staff. Pt ate snack in the group room and started to become agitated and yelled at some peers talking . Pt thought they were talking about him.He was redirected to his room after med pass where he yelled at his room mate who was not there he was d/c earlier today. Pt is preoccupied with internal stimuli. S/I, H/I: Denies A/VH: Denies current A/V/GATES, however states, "'Sometimes I see eyeballs or hear others talking through me." Sleep: Pt reports he slept well, slept 7.75 hours last night per sleep assessment. ADL's: Independent. Group attendance: No Were meds taken: Yes Any med S/E: None Mental Status Exam Appearance: Neat and dressed in his suit with hiking shoes Eye contact: Good Behavior: Cooperative, restless, withdrawn, increasingly anxious, and somewhat agitated Speech: Articulate with a slow drawl. Mood: Animated and pleasant in the morning, however became anxious and agitated in the afternoon Affect: Labile Thought process: Disorganized Thought Content: Paranoid delusions, and occasional A/V/GATES Cognition: A&O X3 (not to why here) Insight: Poor Judgment: Fair Interventions PRN's used: None Therapeutic interventions: Maintained a safe and therapeutic environment, ensured contract for safety, provided clear and simple instructions, attempted to orient to reality, provided direction and positive reassurance as needed, monitored behaviors and need for intervention, and maintained Q 15min safety checks. Restraints/seclusion/emergency medication: N/A Justification of Continued Inpatient Treatment: Patient is LPS conserved and requires a safe and therapeutic environment until appropriate placement found.
[2020-06-27 07:39] VITALS: BP 113/68
[2020-06-27] MEDS: trihexyphenidyl HCL 5 MG tablet PO SCH ×2 (08:32→19:39)
[2020-06-27] MEDS: LORazepam 0.5 MG tablet PO SCH ×2 (08:32→19:39)
[2020-06-27] MEDS: haloperidol 5mg tablet PO SCH ×3 (08:32→20:01)
[2020-06-27] MEDS: pantoprazole 40mg Tablet.DR PO SCH (08:32)
[2020-06-27] MEDS: divalproex sodium 500mg tablet.DR PO SCH ×2 (08:32→20:02)
[2020-06-27] MEDS: acetaminophen 325mg tablet PO PRN (08:33)
--- NOTE | 2020-06-27 10:41 | NUR ---
75-100% PO intake, great appetite. No nutrition problem. Recommend: 1. continue regular diet 2. weight weekly Addendum: 06/27/20 at [address] Amended: Links added.
--- NOTE | 2020-06-27 15:48 | NUR ---
Nursing Progress Note: Legal hold: LPS Report received from Lon MACK with use of SBAR. Why are they here: Pt decompensated at board and care; increasingly agitated with bizarre, paranoid and delusional statements. Access center assessed and brought to ED for evaluation and stabilization. Assessment What happened this shift: Received pt. up sitting in the hallway at the beginning of the shift, he appropriately greets this technical report writer, but does not request his AM medications right away as he had done previously. 1:1 completed following breakfast, pt. denies all MH s/s, and when questioned by this technical report writer regarding how he is feeling states with a smile, "I always feel good when I'm around you." Pt. later approached this technical report writer making delusional statements, states, "My hip is growing, usually when you have hepatitis C your hip shrinks, but mine is growing." He requests his scheduled afternoon dose of Haldol, administered with effectiveness and no further delusional statements overheard. Pt. intermittently isolates in his room or is observed on the unit interacting minimally, however appropriately with peers throughout the day. No agitated outbursts are observed. S/I, H/I: Denies A/VH: Denies, however appears to be internally preoccupied at times AEB talking to himself Sleep: Pt reports he slept well, sleep hours are 8 ADL's: Independent. Group attendance: N/A Were meds taken: Yes Any med S/E: None Mental Status Exam Appearance: Neat and appropriately dressed Eye contact: Good Behavior: Cooperative, guarded, and withdrawn Speech: Articulate with a slow drawl. Mood: Pleasant, however continues to be guarded Affect: Blunted with animation Thought process: Disorganized Thought Content: Paranoid delusions, and occasional A/V/GATES Cognition: A&O X3 (not to why here) Insight: Poor Judgment: Fair Interventions PRN's used: None Therapeutic interventions: Maintained a safe and therapeutic environment, ensured contract for safety, provided clear and simple instructions, attempted to orient to reality, provided direction and positive reassurance as needed, monitored behaviors and need for intervention, and maintained Q 15min safety checks. Restraints/seclusion/emergency medication: N/A Justification of Continued Inpatient Treatment: Patient is LPS conserved and requires a safe and therapeutic environment until appropriate placement found.
[2020-06-27 19:52] VITALS: BP 139/88
--- NOTE | 2020-06-28 00:09 | NUR ---
Nursing Progress Note: Legal hold: LPS Report received from Susanne MACK with use of SBAR. Why are they here: Pt decompensated at board and care; increasingly agitated with bizarre, paranoid and delusional statements. Access center assessed and brought to ED for evaluation and stabilization. Assessment What happened this shift: Pt was in his room sitting quietly at change of shift. Pt was seen in the halls interacting with staff and peers in an appropriate manner at various times during the evening shift. Pt was happy and was joking and laughing with this rn during 1:1 and accepted all meds without issue. Pt did not have any behavior issues. S/I, H/I: Denies A/VH: Denies Sleep: see sleep assessment ADL's: Independent. Group attendance: N/A Were meds taken: Yes Any med S/E: None Mental Status Exam Appearance: Neat and dressed in suitcoat Eye contact: Good Behavior: Cooperative, funny Speech: Articulate with a slow drawl. Mood: Pleasant Affect: Blunted with animation Thought process: Disorganized Thought Content: joking Cognition: A&O X3 (not to why here) Insight: Poor Judgment: Fair Interventions PRN's used: None Therapeutic interventions: Maintained a safe and therapeutic environment, ensured contract for safety, provided clear and simple instructions, attempted to orient to reality, provided direction and positive reassurance as needed, monitored behaviors and need for intervention, and maintained Q 15min safety checks. Restraints/seclusion/emergency medication: N/A Justification of Continued Inpatient Treatment: Patient is LPS conserved and requires a safe and therapeutic environment until appropriate placement found.
[2020-06-28 07:41] VITALS: BP 110/66
[2020-06-28] MEDS: trihexyphenidyl HCL 5 MG tablet PO SCH ×2 (08:07→20:29)
[2020-06-28] MEDS: pantoprazole 40mg Tablet.DR PO SCH (08:07)
[2020-06-28] MEDS: LORazepam 0.5 MG tablet PO SCH ×2 (08:07→20:30)
[2020-06-28] MEDS: divalproex sodium 500mg tablet.DR PO SCH ×2 (08:07→20:30)
[2020-06-28] MEDS: haloperidol 5mg tablet PO SCH ×3 (08:08→20:30)
--- NOTE | 2020-06-28 10:00 | NUR ---
Group Therapy: Process Group This Clinicians goal for this process group were as follows: (1) Ask scaling questions about Patients current anxiety, depression, and irritability symptoms as a check-in. (2) Provide psychoeducation on emotional and situational stressors. (3) Discuss thoughts and feelings that patients experience when they have experienced an emotional and/or situational stressor. (4) Provide psychoeducation on interventions, as actions patients can take to reduce feelings of emotional escalation caused by situational and emotional stressors. (5) Process Patients thoughts and reflections on this topic within the group milieu. Patient identified experiencing the following levels of anxiety, depression, and anger/irritability while present in the group milieu. Anxiety: 8/10 Depression: 3/10 Anger/irritability: 5/10 Patient presented as open and cooperative within the group milieu. Patient was dressed in personal, nondescript clothing that were appropriate within the milieu. Patient wore a smallwood suit jacket over a smallwood tank top with dark smallwood slacks and yellow no slip socks. Patient's thought content was clear and concrete. His thought process ranged from clear, coherent, and linear to delusional--marked by flight of ideas, psychosis, tangential and circumstantial thinking. For example: This Clinician asked Patient how he felt in his body after acknowledging that his anxiety was an "8/10." Patient stated that it felt like an, "Artificial intelligence." Patient reported that his anxiety was a "5/10." This Clinician asked Patient why this was the case. Patient stated, "It's because my correctional case records supervisor hasn't been talking to me. I think she has gone to long term." Patient presented as verbally engaged and nonobtrusive within the group milieu. Despite Patient's occasional delusional statements, he often was able to make insightful comments about how different stressful situations trigger unpleasant thoughts, and feelings in the body, in addition to interventions that he could utilize to successfully reduce episodes of emotional escalation. Angelo Marks MA, ROSIN BARREL FILLER Addendum: 08/04/20 at 1120 by Angelo TILLMAN Amended: Links added.
[2020-06-28] MEDS: LORazepam 1 MG tablet PO PRN (12:00)
--- NOTE | 2020-06-28 17:26 | NUR ---
Nursing Progress Note: Legal hold: LPS Report received from MARTINA Fish with use of SBAR. Why are they here: Pt decompensated at board and care; increasingly agitated with bizarre, paranoid and delusional statements. Access center assessed and brought to ED for evaluation and stabilization. Assessment What happened this shift: Patient awake at shift change, greeting staff as they come on the unit. Patient takes medications without incident. Administered Ativan with effectiveness for anxiety. Patient states that he is thinking about his future, and it is blank. Patient comes to RN at noon requesting his Haldol which was effective. When asked about hallucinations he states no symptoms, but later in the conversation he states that I know how to talk to them now. S/I, H/I: Denies A/VH: Denies, however appears to be internally preoccupied at times AEB talking to himself Sleep: 8 hrs. NOC. ADL's: Independent. Group attendance: Yes. Were meds taken: Yes Any med S/E: None Mental Status Exam Appearance: Well groomed in new blue t-shirt and suit. Eye contact: Good Behavior: Cooperative, anxious. Speech: Clear, loud. Mood: Pleasant, however continues to be guarded Affect: Blunted with animation Thought process: Disorganized Thought Content: Paranoid delusions, and occasional A/V/GATES Cognition: A&O X3 (not to why here) Insight: Poor Judgment: Fair Interventions PRN's used: None Therapeutic interventions: Maintained a safe and therapeutic environment, ensured contract for safety, provided clear and simple instructions, attempted to orient to reality, provided direction and positive reassurance as needed, monitored behaviors and need for intervention, and maintained Q 15min safety checks. Restraints/seclusion/emergency medication: N/A Justification of Continued Inpatient Treatment: Patient is LPS conserved and requires a safe and therapeutic environment until appropriate placement found.
[2020-06-28 19:22] VITALS: BP 116/71
[2020-06-28] MEDS: quetiapine 100mg tablet PO PRN (20:30)
--- NOTE | 2020-06-29 | NUR ---
Nursing Progress Note: Legal hold: LPS Report received from MARTINA Skinner with use of SBAR. Why are they here: Pt decompensated at board and care; increasingly agitated with bizarre, paranoid and delusional statements. Access center assessed and brought to ED for evaluation and stabilization. Assessment What happened this shift: Pt is sitting in a chair in the hallway at torres of shift. He tells me he is hopeful that he can go to [facility] in [place] because he went there before and likes it there. He states his meds are working good and he feels good. Pt denies hearing voices but seems to be internally preoccupied much of the time. Pt reports he didnt sleep well and asked for seroquel at bedtime, suggested giving trazadone first to help with sleep and explained seroquel is for agitation. Pt raised his voice and said I can get really angry if I have to, I need the seroquel! Pt states he feels he can't sleep unless he has seroquel to go to sleep, insistant that trazadone wont work. Pt isolated to himself for much of the evening and wasnt wearing his glasses. Asked pt if he could see without his glasses and he states ya I guess so. S/I, H/I: Denies A/VH: Denies, however appears to be internally preoccupied Sleep: see sleep hours ADL's: Independent. Group attendance: Yes. Were meds taken: Yes Any med S/E: None Mental Status Exam Appearance: Wearing scrubs with suit jacket and baseball hat Eye contact: Good Behavior: Cooperative, anxious. became agitated when he wasnt getting meds he wanted Speech: Clear, loud. Mood: Pleasant, guarded Affect: Blunted Thought process: Disorganized Thought Content: Paranoid delusions, and occasional A/V/GATES Cognition: A&O X3 (not to why here) Insight: Poor Judgment: Fair Interventions PRN's used: None Therapeutic interventions: Maintained a safe and therapeutic environment, ensured contract for safety, provided clear and simple instructions, attempted to orient to reality, provided direction and positive reassurance as needed, monitored behaviors and need for intervention, and maintained Q 15min safety checks. Restraints/seclusion/emergency medication: N/A Justification of Continued Inpatient Treatment: Patient is LPS conserved and requires a safe and therapeutic environment until appropriate placement found.
[2020-06-29 08:00] VITALS: BP 94/54
[2020-06-29] MEDS: acetaminophen 325mg tablet PO PRN (08:07)
[2020-06-29] MEDS: trihexyphenidyl HCL 5 MG tablet PO SCH ×2 (08:08→20:14)
[2020-06-29] MEDS: divalproex sodium 500mg tablet.DR PO SCH ×2 (08:08→20:14)
[2020-06-29] MEDS: haloperidol 5mg tablet PO SCH ×3 (08:08→20:14)
[2020-06-29] MEDS: pantoprazole 40mg Tablet.DR PO SCH (08:08)
[2020-06-29] MEDS: LORazepam 0.5 MG tablet PO SCH ×2 (08:08→20:14)
--- NOTE | 2020-06-29 17:27 | NUR ---
Nursing Progress Note: Legal hold: LPS Report received from MARTINA Fish with use of SBAR. Why are they here: Pt decompensated at board and care; increasingly agitated with bizarre, paranoid and delusional statements. Access center assessed and brought to ED for evaluation and stabilization. Assessment What happened this shift: Received pt sleeping at shift change. Pt. Is sleeping in suit from day before. Pt. Does get up and take his medications without incident. Patient tends to be withdrawn and isolative to his room, with noisy unit milieu. Pt. Took shower and changed clothing. S/I, H/I: Denies A/VH: Denies, however appears to be internally preoccupied at times AEB talking to himself Sleep: 7.5 hrs. NOC. ADL's: Independent. Group attendance: Yes. Were meds taken: Yes Any med S/E: None Mental Status Exam Appearance: Freshly showered in black shirt and smallwood suit. Eye contact: Good Behavior: Cooperative, anxious. Speech: Clear, loud. Mood: Pleasant, however continues to be guarded Affect: Blunted Thought process: Disorganized Thought Content: Paranoid delusions, and occasional A/V/GATES Cognition: A&O X3 (not to why here) Insight: Poor Judgment: Fair Interventions PRN's used: None Therapeutic interventions: Maintained a safe and therapeutic environment, ensured contract for safety, provided clear and simple instructions, attempted to orient to reality, provided direction and positive reassurance as needed, monitored behaviors and need for intervention, and maintained Q 15min safety checks. Restraints/seclusion/emergency medication: N/A Justification of Continued Inpatient Treatment: Patient is LPS conserved and requires a safe and therapeutic environment until appropriate placement found.
[2020-06-29] MEDS: quetiapine 100mg tablet PO PRN (18:37)
[2020-06-29] MEDS: LORazepam 1 MG tablet PO PRN (18:53)
--- NOTE | 2020-06-30 00:25 | NUR ---
Nursing Progress Note: Legal hold: LPS Report received from Vinod RN with use of SBAR. Why are they here: Pt decompensated at board and care; increasingly agitated with bizarre, paranoid and delusional statements. Access center assessed and brought to ED for evaluation and stabilization. Assessment What happened this shift: Pt asked for seroquel with HS meds at change of shift. Asked him if he wanted it now or later, patient states "I want it later because Im going to be angry." Asked pt why he thought this, he explained "I called public guardian and I talked to Tabby and she said I can't get what I want!" Pt became very agitated and complained "I dont even have any friends or family to call, I dont have anyone, nobody knows me!" Tried to calm patient and we said we know you, he states "You don't know me, you guys are just a bunch of bozos! Dont try to talk to me, just dont even talk because you don't know anything about me!" Pt took seroquel and continued to yell and be agitated and then took prn ativan. Pt yelled "I want to talk to my corporate health consultant, even if I have to bail him out of [facility] first. I need a shot of Haldol Dec!" Pt sat in his room yelling for sometime and then was able to calm himself. He had snacks in the group room before going to bed. S/I, H/I: Denies A/VH: Denies, internally preoccupied at times AEB talking to himself Sleep: see sleep hours ADL's: Independent. Group attendance: pt had snacks with group but sat alone Were meds taken: Yes Any med S/E: None Mental Status Exam Appearance: black shirt smallwood suit jacket and wearing a hat Eye contact: Good Behavior: agitated loud yelling Speech: Clear, loud. Mood: irritable, angry, frustrated Affect: labile Thought process: Disorganized Thought Content: Paranoid delusions, Cognition: A&O X3 (not to why here) Insight: Poor Judgment: Fair Interventions PRN's used: None Therapeutic interventions: Maintained a safe and therapeutic environment, ensured contract for safety, provided clear and simple instructions, attempted to orient to reality, provided direction and positive reassurance as needed, monitored behaviors and need for intervention, and maintained Q 15min safety checks. Restraints/seclusion/emergency medication: N/A Justification of Continued Inpatient Treatment: Patient is LPS conserved and requires a safe and therapeutic environment until appropriate placement found.
[2020-06-30] MEDS: trihexyphenidyl HCL 5 MG tablet PO SCH ×2 (07:29→20:00)
[2020-06-30] MEDS: divalproex sodium 500mg tablet.DR PO SCH ×2 (07:30→21:15)
[2020-06-30] MEDS: LORazepam 0.5 MG tablet PO SCH ×2 (07:30→20:00)
[2020-06-30] MEDS: haloperidol 5mg tablet PO SCH ×3 (07:30→21:15)
[2020-06-30] MEDS: pantoprazole 40mg Tablet.DR PO SCH (07:30)
[2020-06-30 08:00] VITALS: BP 107/55
--- NOTE | 2020-06-30 13:04 | NUR ---
NURSING PROGRESS NOTE Legal hold: LPS Report received from AMRTINA Fish with use of SBAR Why are they here: Pt decompensated at board and care; increasingly agitated with bizarre, paranoid and delusional statements. Access center assessed and brought to ED for evaluation and stabilization. Assessment What happened this shift: The patient was in a sullen mood today not his usual talkative self. Admitted to not sleeping well last night. Made some statements about wanting to be placed in [place] because he remembers camping there as a child. Also is voicing frustration with his family, "I can't make them understand." Isolated to room and was napping frequently. S/I, H/I: Denies A/VH: Denies Sleep: Naps ADL's: Independent. Group attendance: No Were meds taken: Yes Any med S/E: None Mental Status Exam Appearance: disheveled Eye contact: fair Behavior: Isolative Speech: Clear, soft Mood: Sullen Affect: Blunted Thought process: Delusional Thought Content: family and placement Cognition: Alert Insight: Poor Judgment: Fair Interventions PRN's used: None Therapeutic interventions: Maintained a safe and therapeutic environment, ensured contract for safety, provided clear and simple instructions, attempted to orient to reality, provided direction and positive reassurance as needed, monitored behaviors and need for intervention, and maintained Q 15min safety checks. Restraints/seclusion/emergency medication: N/A Justification of Continued Inpatient Treatment: Patient is LPS conserved and requires a safe and therapeutic environment until appropriate placement found.
--- NOTE | 2020-06-30 15:30 | NUR ---
PLACEMENT Hardik has been accepted at [facility] and they expect to open in Jul. His packet is also at [facility], [facility], [facility], [facility], and [facility]. LEXIE Squires
[2020-06-30 19:54] VITALS: BP 114/76
[2020-06-30] MEDS: quetiapine 100mg tablet PO SCH (21:15)
--- NOTE | 2020-07-01 05:15 | NUR ---
NURSING PROGRESS NOTE Legal hold: LPS Report received from MARTINA Forrest with use of SBAR Why are they here: Pt decompensated at board and care; increasingly agitated with bizarre, paranoid and delusional statements. Access center assessed and brought to ED for evaluation and stabilization. Assessment What happened this shift: Patient visible and interacting appropriately at the beginning of shift. Pleasant and cooperative with all care; compliant with all medication. Patient denies SI, HI, A/VH. Patient participated in HS snack prior to bed; does not appear to be having difficulty sleeping. S/I, H/I: Denies A/VH: Denies Sleep: Refer to sleep assessment ADL's: Independent. Group attendance: No groups this shift Were meds taken: Yes, without incident Any med S/E: None observed or reported Mental Status Exam Appearance: Neat, clean and appropriately dressed in personal attire Eye contact: Good Behavior: Pleasant and cooperative, interacting appropriately Speech: Clear, soft Mood: Euphoric Affect: Blunted Thought process: Linear, no delusional content provided this shift Thought Content: Bored. Not interested in games and no good shows/movies today Cognition: Alert Insight: Poor Judgment: Fair Interventions PRN's used: None Therapeutic interventions: Maintained a safe and therapeutic environment, ensured contract for safety, provided clear and simple instructions, attempted to orient to reality, provided direction and positive reassurance as needed, monitored behaviors and need for intervention, and maintained Q 15min safety checks. Restraints/seclusion/emergency medication: N/A Justification of Continued Inpatient Treatment: Patient is LPS conserved and requires a safe and therapeutic environment until appropriate placement found.
[2020-07-01 08:00] VITALS: BP 102/58
[2020-07-01] MEDS: pantoprazole 40mg Tablet.DR PO SCH (08:09)
[2020-07-01] MEDS: LORazepam 0.5 MG tablet PO SCH ×2 (08:09→19:33)
[2020-07-01] MEDS: trihexyphenidyl HCL 5 MG tablet PO SCH ×2 (08:09→19:32)
[2020-07-01] MEDS: haloperidol 5mg tablet PO SCH ×3 (08:09→20:01)
[2020-07-01] MEDS: divalproex sodium 500mg tablet.DR PO SCH ×2 (08:10→20:01)
[2020-07-01 08:12] LABS: BASOPHILS % (AUTO) 0.6 % (0-1); EOSINOPHILS % (AUTO) 17.4 % (0-6); HEMATOCRIT 39.9 % (42.0-52.0); HEMOGLOBIN 13.3 g/dl (14.0-17.9); LYMPHOCYTES # (AUTO) 1.7 X10'3 (1.1-4.8); LYMPHOCYTES % (AUTO) 30.9 % (21-51); MEAN CORPUSCULAR HEMOGLOBIN 32.5 PG (27.0-31.0); MEAN CORPUSCULAR HGB CONC 33.4 g/dL (33.0-36.5); MEAN CORPUSCULAR VOLUME 97.3 FL (78-98); MEAN PLATELET VOLUME 7.4 FL (7.4-10.4); MONOCYTES # (AUTO) 0.6 X10'3 (0-0.9); MONOCYTES % (AUTO) 11.1 % (2-12); NEUTROPHILS # (AUTO) 2.3 X10'3 (1.8-7.7); PLATELET COUNT 198 X10'3 (140-440); RED CELL DISTRIBUTION WIDTH 13.8 % (11.5-14.5); WHITE BLOOD COUNT 5.7 X10'3 (4.5-11.0)
[2020-07-01] MEDS: quetiapine 100mg tablet PO PRN (09:18)
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
--- NOTE | 2020-07-01 13:49 | NUR ---
NURSING PROGRESS NOTE Legal hold: LPS Report received from MARTINA Barron with use of SBAR Why are they here: Pt decompensated at board and care; increasingly agitated with bizarre, paranoid and delusional statements. Access center assessed and brought to ED for evaluation and stabilization. Assessment What happened this shift: Sleepy this morning, took meds, ate and went back to bed. States, "I'm just angry right now, angry that I can't leave, it's awful being here there's nothing to do, I can't leave and I want to go." Mid morning requested his prn Seroquel for agitation which was provided to him with good effect. Isolated to room today but did get up to meals. Denies suicidal thoughts or hallucinations. S/I, H/I: Denies A/VH: Denies Sleep: napped ADL's: Independent. Group attendance: No Were meds taken: Yes Any med S/E: None observed or reported Mental Status Exam Appearance: disheveled Eye contact: fair Behavior: cooperative Speech: Clear, soft Mood: depressed Affect: Blunted Thought process: Linear Thought Content: wants to leave Cognition: Alert Insight: Poor Judgment: Fair Interventions PRN's used: Seroquel Therapeutic interventions: Maintained a safe and therapeutic environment, ensured contract for safety, provided clear and simple instructions, attempted to orient to reality, provided direction and positive reassurance as needed, monitored behaviors and need for intervention, and maintained Q 15min safety checks. Restraints/seclusion/emergency medication: N/A Justification of Continued Inpatient Treatment: Patient is LPS conserved and requires a safe and therapeutic environment until appropriate placement found.
[2020-07-01 19:00] VITALS: BP 112/72
[2020-07-01] MEDS: acetaminophen 325mg tablet PO PRN (19:35)
[2020-07-01] MEDS: quetiapine 100mg tablet PO SCH (20:01)
--- NOTE | 2020-07-02 02:11 | NUR ---
Nursing Progress Note: Legal hold: LPS Report received from Susanne MACK with use of SBAR. Why are they here: Pt decompensated at board and care; increasingly agitated with bizarre, paranoid and delusional statements. Access center assessed and brought to ED for evaluation and stabilization. Assessment What happened this shift: Pt was in his room sitting quietly at change of shift. Pt mostly isolated to his room during the evening shift. As is usual with pt, he was friendly and joking with this rn during 1:1. pt did not have any behavior issues all evening and reported that he had an okay day. S/I, H/I: Denies A/VH: Denies Sleep: see sleep assessment ADL's: Independent. Group attendance: N/A Were meds taken: Yes Any med S/E: None Mental Status Exam Appearance: lying in bed Eye contact: Good Behavior: Cooperative, funny Speech: Articulate with a slow drawl. Mood: Pleasant Affect: Blunted with animation Thought process: Disorganized Thought Content: "relaxing" Cognition: A&O X3 (not to why here) Insight: Poor Judgment: Fair Interventions PRN's used: None Therapeutic interventions: Maintained a safe and therapeutic environment, ensured contract for safety, provided clear and simple instructions, attempted to orient to reality, provided direction and positive reassurance as needed, monitored behaviors and need for intervention, and maintained Q 15min safety checks. Restraints/seclusion/emergency medication: N/A Justification of Continued Inpatient Treatment: Patient is LPS conserved and requires a safe and therapeutic environment until appropriate placement found.
[2020-07-02] MEDS: LORazepam 0.5 MG tablet PO SCH ×2 (07:57→19:54)
[2020-07-02] MEDS: haloperidol 5mg tablet PO SCH ×3 (07:57→19:55)
[2020-07-02] MEDS: trihexyphenidyl HCL 5 MG tablet PO SCH ×2 (07:58→19:54)
[2020-07-02] MEDS: pantoprazole 40mg Tablet.DR PO SCH (07:58)
[2020-07-02] MEDS: divalproex sodium 500mg tablet.DR PO SCH ×2 (07:58→19:54)
[2020-07-02 08:00] VITALS: BP 116/69
--- NOTE | 2020-07-02 15:28 | NUR ---
NURSING PROGRESS NOTE Legal hold: LPS Report received from MARTINA Barron with use of SBAR Why are they here: Pt decompensated at board and care; increasingly agitated with bizarre, paranoid and delusional statements. Access center assessed and brought to ED for evaluation and stabilization. Assessment What happened this shift: Reports feeling "good" today stating, "I slept better last night." No outbursts today, calm and cooperative. Looking forward to discharge. Med compliant and eating well. Denies suicidal thughts and no delusional statements today. S/I, H/I: Denies A/VH: Denies Sleep: napped ADL's: Independent. Group attendance: No Were meds taken: Yes Any med S/E: None observed or reported Mental Status Exam Appearance: disheveled Eye contact: fair Behavior: cooperative Speech: Clear, soft Mood: depressed Affect: Blunted Thought process: Linear Thought Content: wants to leave Cognition: Alert Insight: Poor Judgment: Fair Interventions PRN's used: None Therapeutic interventions: Maintained a safe and therapeutic environment, ensured contract for safety, provided clear and simple instructions, attempted to orient to reality, provided direction and positive reassurance as needed, monitored behaviors and need for intervention, and maintained Q 15min safety checks. Restraints/seclusion/emergency medication: N/A Justification of Continued Inpatient Treatment: Patient is LPS conserved and requires a safe and therapeutic environment until appropriate placement found.
[2020-07-02 19:40] VITALS: BP 116/65
[2020-07-02] MEDS: quetiapine 100mg tablet PO SCH (19:54)
--- NOTE | 2020-07-02 22:56 | NUR ---
Nursing Progress Note: Legal hold: LPS Report received from Susanne MACK with use of SBAR. Why are they here: Pt decompensated at board and care; increasingly agitated with bizarre, paranoid and delusional statements. Access center assessed and brought to ED for evaluation and stabilization. Assessment What happened this shift: Pt was in his room sitting quietly at change of shift. Pt mostly isolated to his room during the evening shift but was seen on the unit wearing his jacket. Pt stated that he was tired and mostly stayed in bed. pt was med compliant and had no complaints. S/I, H/I: Denies A/VH: Denies Sleep: see sleep assessment ADL's: Independent. Group attendance: N/A Were meds taken: Yes Any med S/E: None Mental Status Exam Appearance: lying in bed Eye contact: Good Behavior: Cooperative, funny Speech: Articulate with a slow drawl. Mood: Pleasant Affect: Blunted with animation Thought process: Disorganized Thought Content: "relaxing" Cognition: A&O X3 (not to why here) Insight: Poor Judgment: Fair Interventions PRN's used: None Therapeutic interventions: Maintained a safe and therapeutic environment, ensured contract for safety, provided clear and simple instructions, attempted to orient to reality, provided direction and positive reassurance as needed, monitored behaviors and need for intervention, and maintained Q 15min safety checks. Restraints/seclusion/emergency medication: N/A Justification of Continued Inpatient Treatment: Patient is LPS conserved and requires a safe and therapeutic environment until appropriate placement found.
[2020-07-03 08:00] VITALS: BP 96/65
[2020-07-03] MEDS: divalproex sodium 500mg tablet.DR PO SCH ×2 (08:07→20:12)
[2020-07-03] MEDS: pantoprazole 40mg Tablet.DR PO SCH (08:07)
[2020-07-03] MEDS: haloperidol 5mg tablet PO SCH ×3 (08:07→20:13)
[2020-07-03] MEDS: LORazepam 0.5 MG tablet PO SCH ×2 (08:07→20:12)
[2020-07-03] MEDS: trihexyphenidyl HCL 5 MG tablet PO SCH ×2 (08:07→20:12)
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
[2020-07-03 20:00] VITALS: BP 106/69
[2020-07-03] MEDS: quetiapine 100mg tablet PO SCH (20:13)
--- NOTE | 2020-07-04 03:40 | NUR ---
Nursing Progress Note: Legal hold: LPS Report received from MARTINA Forrest with use of SBAR. Why are they here: Pt decompensated at board and care; increasingly agitated with bizarre, paranoid and delusional statements. Access center assessed and brought to ED for evaluation and stabilization. Assessment What happened this shift: The patient was seen at bedside for 1:1. He is pleasant to this nurse, and compliant with medications, but doesn't have much to say, except, "when do I get to leave here." The patient got in line for snacks then went back to isolating in his room. S/I, H/I: Denies A/VH: Denies Sleep: see sleep assessment ADL's: Independent. Group attendance: N/A Were meds taken: Yes Any med S/E: None Mental Status Exam Appearance: Nicely dressed with slacks and jacket, disheveled appearance. Eye contact: Good Behavior: Cooperative, funny, irritable, guarded Speech: Clear, slow speech. Mood: Pleasant Affect: Blunted with animation Thought process: Disorganized Thought Content: "When do I leave." Cognition: A&O X3 (not to why here) Insight: Poor Judgment: Fair Interventions PRN's used: None Therapeutic interventions: Maintained a safe and therapeutic environment, ensured contract for safety, provided clear and simple instructions, attempted to orient to reality, provided direction and positive reassurance as needed, monitored behaviors and need for intervention, and maintained Q 15min safety checks. Restraints/seclusion/emergency medication: N/A Justification of Continued Inpatient Treatment: Patient is LPS conserved and requires a safe and therapeutic environment until appropriate placement found.
[2020-07-04] MEDS: divalproex sodium 500mg tablet.DR PO SCH ×2 (07:19→20:21)
[2020-07-04] MEDS: haloperidol 5mg tablet PO SCH ×3 (07:20→20:17)
[2020-07-04] MEDS: pantoprazole 40mg Tablet.DR PO SCH (07:20)
[2020-07-04] MEDS: LORazepam 0.5 MG tablet PO SCH ×2 (07:20→20:18)
[2020-07-04] MEDS: trihexyphenidyl HCL 5 MG tablet PO SCH ×2 (07:20→20:18)
[2020-07-04 08:00] VITALS: BP 101/60
--- NOTE | 2020-07-04 10:00 | NUR ---
Group Therapy: Process Group This Clinicians goals for this process group were as follows: (1) Ask scaling questions about Patients current anxiety, depression, and irritability symptoms as a check-in. (2) Share psychoeducation about self-efficacy, and ego strength. (3) Provide psychoeducation on [employer] Drama triangleVictim, Persecutor, Rescuer dynamic. (4) Share psychoeducation on developing positive ego strengthpositive affirmations, positive self-talk, transitioning from a victim of circumstances to a survivor of circumstances. (5) Process Clients thoughts and reflections on this topic within the group milieu. Patient identified experiencing the following levels of anxiety, depression, and anger/irritability while present in the group milieu. Anxiety: 12/04 Depression: 12/04 Anger/irritability: 12/04 Patient presented as open and cooperative within the group milieu. Patient wore personal, nondescript clothing that were appropriate within the milieu. Patient wore a dark smallwood suit over a purple shirt, with matching dark smallwood slacks. He also wore a blue hat with the [employer] on it. Patient's thought content was clear and concrete. Patient's thought process varied widely between being clear, coherent, and linear, and delusional. For instance, Patient reported that his personal strength--in the context of identifying positive strengths, virtues and characteristics that could help a person transition from feeling like they are a victim of their circumstances to becoming a survivor--was being able to fix "Landing gear." This Clinician observed Patient making comments to other patients that appeared to be sincere and good-natured, but were either delusional or considerably off-topic from the material being discussed within the process group. Despite this, it is this Clinician's impression that Patient was nonobtrusive within the group milieu, as he did not disrupt the overall flow of the group. He presented as verbally engaged during the process group. Angelo Marks MA, LEXIE Addendum: 07/04/20 at 1153 by Angelo Marks SS Amended: Links added.
--- NOTE | 2020-07-04 14:12 | NUR ---
75-100% PO intake, great appetite. No nutrition problem. Recommend: 1. continue regular diet 2. weight weekly Addendum: 07/04/20 at [address] Amended: Links added.
--- NOTE | 2020-07-04 15:27 | NUR ---
Nursing Progress Note: Hanh Legal hold: LPS Report received from Veronica Da Silva RN with use of SBAR. Why are they here: Pt decompensated at board and care; increasingly agitated with bizarre, paranoid and delusional statements. Access center assessed and brought to ED for evaluation and stabilization. Assessment What happened this shift: Client was in his room and awake to begin this shift. He was compliant with medications and assessment and cordial with staff as well as peers. He tends to isolate in his room but will come to Group room for meals and to socialize at times. No behavioral issues or somatic complaints identified during assessment. Client spent time after breakfast in the group room drinking coffee and watching TV. Client participated in group today and behavior was appropriate. Lunch was consumed in the group room and client consumed the majority of his noon meal. After lunch, client attended group and was active and social on unit without behavioral issues. S/I, H/I: Denies A/VH: Denies Sleep: 7 hours on prior shift. ADL's: Independent. Group attendance: Were meds taken: Yes Any med S/E: None Mental Status Exam Appearance: Nicely dressed with slacks and jacket, disheveled appearance. Eye contact: Good Behavior: Cooperative, funny Speech: Clear, slow speech. Mood: Pleasant Affect: Blunted with animation Thought process: Disorganized Thought Content: "I get to leave in July now" Cognition: A&O X3 (not to why here) Insight: Poor Judgment: Fair Interventions PRN's used: None Therapeutic interventions: Maintained a safe and therapeutic environment, ensured contract for safety, provided clear and simple instructions, attempted to orient to reality, provided direction and positive reassurance as needed, monitored behaviors and need for intervention, and maintained Q 15min safety checks. Restraints/seclusion/emergency medication: N/A Justification of Continued Inpatient Treatment: Patient is LPS conserved and requires a safe and therapeutic environment until appropriate placement found.
[2020-07-04 20:03] VITALS: BP 121/80
[2020-07-04] MEDS: quetiapine 100mg tablet PO SCH (20:18)
--- NOTE | 2020-07-05 02:52 | NUR ---
Nursing Progress Note: Legal hold: LPS Report received from MARTINA Forrest with use of SBAR. Why are they here: Pt decompensated at board and care; increasingly agitated with bizarre, paranoid and delusional statements. Access center assessed and brought to ED for evaluation and stabilization. Assessment What happened this shift: The patient was seen in the group room for 1:1 assessment. He usually sits alone, and doesn't seem to initiate conversation with other clients. He has persistent mental illness, and has some insight into his disease. The patient likes to dress nice, has a good sense of humor, but requires some patience when conversing with him. He has not had any outbursts this evening. "I had a good day, but I just want to go somewhere there is a little more freedom." S/I, H/I: Denies A/VH: Denies Sleep: see sleep assessment ADL's: Independent. Group attendance: N/A Were meds taken: Yes Any med S/E: None reported or observed Mental Status Exam Appearance: Nicely dressed with smallwood slacks, purple shirt, and jacket, disheveled appearance. Eye contact: Good Behavior: Cooperative, funny, irritable, guarded Speech: Clear, slow speech. Mood: "Good" Affect: Blunted with animation Thought process: Disorganized Thought Content: "When do I leave." Cognition: A&O X3 (not to why here) Insight: Fair Judgment: Poor Interventions PRN's used: None Therapeutic interventions: Maintained a safe and therapeutic environment, ensured contract for safety, provided clear and simple instructions, attempted to orient to reality, provided direction and positive reassurance as needed, monitored behaviors and need for intervention, and maintained Q 15min safety checks. Restraints/seclusion/emergency medication: N/A Justification of Continued Inpatient Treatment: Patient is LPS conserved and requires a safe and therapeutic environment until appropriate placement found.
[2020-07-05] MEDS: quetiapine 100mg tablet PO PRN (04:00)
[2020-07-05] MEDS: pantoprazole 40mg Tablet.DR PO SCH (07:54)
[2020-07-05] MEDS: LORazepam 0.5 MG tablet PO SCH ×2 (07:54→20:19)
[2020-07-05] MEDS: haloperidol 5mg tablet PO SCH ×3 (07:55→20:19)
[2020-07-05] MEDS: divalproex sodium 500mg tablet.DR PO SCH ×2 (07:55→20:19)
[2020-07-05] MEDS: trihexyphenidyl HCL 5 MG tablet PO SCH ×2 (07:55→20:19)
[2020-07-05] MEDS: acetaminophen 325mg tablet PO PRN ×2 (07:59→20:54)
[2020-07-05 08:00] VITALS: BP 100/57
--- NOTE | 2020-07-05 10:00 | NUR ---
Group Therapy: Process Group This Clinicians goals for this process group were as follows: (1) Ask scaling questions about patients current anxiety, depression, and irritability symptoms as a check-in. (2) Share psychoeducation about three rules of brief solution-focused problem-solving: A) Stop doing what clearly isnt working, B) Do something different, C) If the different activity works, then do more of it. If it doesnt work, then go back to principle A). (3) Identify examples of thoughts, activities, and behaviors that people do that no longer work for them, or they create more problems than solutions. (4) Identify examples of thoughts, activities, and behaviors that may help create better emotional/behavioral outcomes and lead to good solutions to problems. (5) Engage patients in discussion of the topics shared within the group milieu. Patient presented as open and cooperative within the group milieu. Patient was dressed in nondescript, personal clothing that were appropriate within the group milieu. Patient wore a dark smallwood suit jacket over a dark t-shirt, and dark smallwood slacks. He also wore a [employer] baseball cap. Patient's thought content was clear, and concrete. His thought process varied widely between being clear, coherent, and linear, to being marked by delusional content, tangential thinking and flight of ideas. Patient presented as verbally engaged and nonobtrusive within the group milieu. Patient was not present initially during the process group, thus this Clinician was unable to ask him scaling questions about his levels of depression, anxiety and anger/irritability. As a potential problem that he wanted to discuss, upon which the discussion of solution-focused problem-solving could be applied, Patient wanted to talk about being the victim of a, "Lawsuit." Another problem situation that Patient identified was how to address the possibility of being bullied by others. In this later context, Patient identified that some things that he would try to do, "Differently," to solve that problem would be either to: "Walk away," or, attempt to talk, "Logically" to the person to get him to stop bullying him. This Clinician praised Client for his attempts to put forth adaptive solutions to the problem of being bullied, which could actually help to reduce the issue of being bullied. Angelo Marks MA, GUEST HISTORY CLERK Addendum: 07/05/20 at 1134 by Angelo TILLMAN Amended: Links added.
--- NOTE | 2020-07-05 15:37 | NUR ---
NURSING PROGRESS NOTE Legal hold: LPS Report received from MARTINA Fish with use of SBAR Why are they here: Pt decompensated at board and care; increasingly agitated with bizarre, paranoid and delusional statements. Access center assessed and brought to ED for evaluation and stabilization. Assessment What happened this shift: Reports not sleeping well last night because "my new roommate was bothering me." Pleasant and cooperative today. Asked for things as he needed them. Smiling and joking with others. Attending groups and did isolate to room at times. Watched a movie with others. States he is bored and would like to go to "my new place." S/I, H/I: Denies A/VH: Denies Sleep: napped ADL's: Independent. Group attendance: yes Were meds taken: Yes Any med S/E: None observed or reported Mental Status Exam Appearance: disheveled Eye contact: fair Behavior: cooperative Speech: Clear, soft Mood: depressed Affect: Blunted Thought process: mostly linear, can become delusional Thought Content: wants to leave Cognition: Alert Insight: Poor Judgment: Fair Interventions PRN's used: None Therapeutic interventions: Maintained a safe and therapeutic environment, ensured contract for safety, provided clear and simple instructions, attempted to orient to reality, provided direction and positive reassurance as needed, monitored behaviors and need for intervention, and maintained Q 15min safety checks. Restraints/seclusion/emergency medication: N/A Justification of Continued Inpatient Treatment: Patient is LPS conserved and requires a safe and therapeutic environment until appropriate placement found.
[2020-07-05] MEDS: quetiapine 100mg tablet PO SCH (20:19)
[2020-07-05 20:21] VITALS: BP 145/58
--- NOTE | 2020-07-06 02:35 | NUR ---
Nursing Progress Note: Legal hold: LPS Report received from MARTINA Forrest with use of SBAR. Why are they here: Pt decompensated at board and care; increasingly agitated with bizarre, paranoid and delusional statements. Access center assessed and brought to ED for evaluation and stabilization. Assessment What happened this shift: The patient was seen for 1:1 in the group room where he was sitting alone. He was quite pleasant and friendly tonight. Spent most of the evening playing cards with other clients. There were no outbursts, just a bunch of laughing and joking. The patient has a good sense of humor, and used it tonight. No irritability or aggravation shown tonight. He has made any complaints about his roommate tonight. S/I, H/I: Denies A/VH: Denies Sleep: see sleep assessment ADL's: Independent. Group attendance: N/A Were meds taken: Yes Any med S/E: None reported or observed Mental Status Exam Appearance: Showered, Nicely dressed with smallwood slacks, purple shirt, and jacket, disheveled appearance Eye contact: Good Behavior: Cooperative, funny, irritable, guarded Speech: Clear, slow speech. Mood: "Good" Affect: Blunted with animation Thought process: Disorganized Thought Content: "When do I leave." Cognition: A&O X3 (not to why here) Insight: Fair Judgment: Poor Interventions PRN's used: None Therapeutic interventions: Maintained a safe and therapeutic environment, ensured contract for safety, provided clear and simple instructions, attempted to orient to reality, provided direction and positive reassurance as needed, monitored behaviors and need for intervention, and maintained Q 15min safety checks. Restraints/seclusion/emergency medication: N/A Justification of Continued Inpatient Treatment: Patient is LPS conserved and requires a safe and therapeutic environment until appropriate placement found.
[2020-07-06] MEDS: trihexyphenidyl HCL 5 MG tablet PO SCH ×2 (07:59→20:37)
[2020-07-06] MEDS: LORazepam 0.5 MG tablet PO SCH ×2 (07:59→20:37)
[2020-07-06] MEDS: divalproex sodium 500mg tablet.DR PO SCH ×2 (07:59→20:36)
[2020-07-06] MEDS: haloperidol 5mg tablet PO SCH ×3 (07:59→20:36)
[2020-07-06] MEDS: pantoprazole 40mg Tablet.DR PO SCH (07:59)
[2020-07-06] MEDS: acetaminophen 325mg tablet PO PRN ×2 (08:22→19:45)
[2020-07-06 08:45] VITALS: BP 101/62
--- NOTE | 2020-07-06 14:59 | NUR ---
NURSING PROGRESS NOTE: Legal hold: LPS Report received from MARTINA Fish with use of SBAR Why are they here: Pt decompensated at board and care; increasingly agitated with bizarre, paranoid and delusional statements. Access center assessed and brought to ED for evaluation and stabilization. Assessment What happened this shift: Pt was pleasant and cooperative with medications and unit procedures. He got along well with his roommate today. Pt gets a little loud and makes irritable statements at times thought he is easily redirected. Pt watches TV in the rec room and the community room, pt played cards and socialized with peers. Pt requested some Tylenol this morning for c/o 8/10 right shoulder pain. Pt indicated that the shoulder was stiff and sore when he lifted his arm up, pt stated, "it's a healing pain." S/I, H/I: Pt denies A/VH: Pt denies Sleep: Pt slept 8 hours last night per noc shift report. ADL's: Independent. Group attendance: No Were meds taken: Yes Any med S/E: None noted or reported. Mental Status Exam Appearance: Clean, neat, dressed in street clothes and a baseball cap. Eye contact: Good Behavior: Pleasant, cooperative, polite. Speech: Clear, audible, loud at times. Mood: Mostly euthymic with mild irritability at times. Affect: Blunted Thought process: Reality distortion Thought Content: His shoulder pain is a healing kind of pain. Cognition: A/O X 3 Insight: Fair Judgment: Fair Interventions PRN's used: Tylenol 650 mg at 0822 Therapeutic interventions: 1:1 assessment, active listening, therapeutic conversation, medication administration and monitoring, encouragement to attend groups, behavior monitoring and intervention as needed; limit setting, redirection, reality orientation, positive reinforcement, Q 15 minute safety checks. Restraints/seclusion/emergency medication: N/A Justification of Continued Inpatient Treatment: Patient is LPS conserved and requires a safe and therapeutic environment until appropriate placement found.
--- NOTE | 2020-07-06 15:37 | NUR ---
PLACEMENT Faxed last 2 weeks of notes to [facility] office for placement purposes. Bhargavi Estrada was requesting updated notes. LEXIE Squires
[2020-07-06 19:32] VITALS: BP 98/68
[2020-07-06] MEDS: quetiapine 100mg tablet PO SCH (20:37)
--- NOTE | 2020-07-06 23:14 | NUR ---
Nursing Progress Note: Legal hold: LPS Report received from MARTINA Brock with use of SBAR. Why are they here: Pt decompensated at board and care; increasingly agitated with bizarre, paranoid and delusional statements. Access center assessed and brought to ED for evaluation and stabilization. Assessment What happened this shift: Pt was in his room during shift change. He is all dressed up. When this RN joked with pt and asked if he was going anywhere he states I wish. Requested Tylenol for a 6/10 right shoulder pain. States that it was from an old injury that happened 20 years ago. This was given with effectiveness. Pt was cooperative during 1:1 physical assessment and took all his HS meds. When asked about hallucinations he states A little bit but not right now. I just try to concentrate on something else. I was playing cards. I just quit even though I was winning. Pt was not observed responding to internal stimuli and did not make any other delusional statements. Retired to bed after he received his medications. S/I, H/I: Denies A/VH: Denies Sleep: Currently sleeping, see sleep assessment for total hours ADL's: Independent. Group attendance: N/A Were meds taken: Yes Any med S/E: None reported or observed Mental Status Exam Appearance: Pt wears suit for most of the evening, then changed into scrubs Eye contact: Good, direct Behavior: Cooperative, laughing, socializing Speech: Clear, slow speech. Mood: "I'm great" Affect: Blunted with some brightening Thought process: Disorganized Thought Content: Playing cards with friends, discharge, pain management Cognition: A&O X3 (not to why here) Insight: Poor Judgment: Poor Interventions PRN's used: None Therapeutic interventions: Maintained a safe and therapeutic environment, ensured contract for safety, provided clear and simple instructions, attempted to orient to reality, provided direction and positive reassurance as needed, monitored behaviors and need for intervention, and maintained Q 15min safety checks. Restraints/seclusion/emergency medication: N/A Justification of Continued Inpatient Treatment: Patient is LPS conserved and requires a safe and therapeutic environment until appropriate placement found.
[2020-07-07] MEDS: divalproex sodium 500mg tablet.DR PO SCH ×2 (07:38→20:46)
[2020-07-07] MEDS: trihexyphenidyl HCL 5 MG tablet PO SCH ×2 (07:38→20:45)
[2020-07-07] MEDS: haloperidol 5mg tablet PO SCH ×3 (07:38→20:45)
[2020-07-07] MEDS: pantoprazole 40mg Tablet.DR PO SCH (07:39)
[2020-07-07] MEDS: LORazepam 0.5 MG tablet PO SCH ×2 (07:39→20:45)
[2020-07-07 07:41] VITALS: BP 94/64
[2020-07-07] MEDS: acetaminophen 325mg tablet PO PRN ×2 (07:45→20:51)
--- NOTE | 2020-07-07 10:00 | NUR ---
Group Therapy: Process Group This Clinicians goal for this process group were as follows: (1) Share psychoeducation about core beliefs and how these beliefs shapes how one views reality. (2) Compare and contrast how people with different core beliefs might interpret an identical situation differently. (3) Discuss how changing negative core beliefs to more balanced, helpful, and rational alternatives can lead to improved behaviors and mood. (4) Process Clients thoughts and reflections on this topic within the group milieu. Patient identified experiencing the following levels of anxiety, depression, and anger/irritability while present in the group milieu. Anxiety: 3/10 Depression: 0/10 Anger/irritability: 2/10 Patient presented as open and cooperative within the group milieu. Patient was dressed in nondescript, personal clothing that were appropriate within the milieu. Patient's thought content was clear, and concrete. Patient's thought process varied widely between being clear, coherent, and linear to being marked by delusional thinking, tangential thinking, and flight of ideas that--practically speaking--led to some of Patient's comments being grossly off-topic. However, Patient presented in a jovial, calm, and euthymic mood. Thus, Patient's statements and behaviors were not obtrusive within the group milieu, and required very little therapeutic redirection. Patient was verbally engaged, and did--on occasion--make insightful comments about how one would hypothetically respond if they had different core beliefs in identical situations. Angelo Marks MA, LEXIE Addendum: 07/07/20 at 1138 by Angelo Marks SS Amended: Links added.
--- NOTE | 2020-07-07 14:52 | NUR ---
DIMA PROGRESS NOTE: Legal hold: LPS Report received from MARTINA Villalobos with use of SBAR Why are they here: Pt decompensated at board and care; increasingly agitated with bizarre, paranoid and delusional statements. Access center assessed and brought to ED for evaluation and stabilization. Assessment What happened this shift: Pt stated he was doing "fine" today. He was pleasant, cooperative and sociable for the majority of the day. Pt did admit to having some intermittent AH that say random things like, "you can't stand him up in the corner." Pt c/o some right shoulder stiffness this morning. Encouraged pt to do some exercises like shoulder rolls and stretching, pt stated that he couldn't do this because it makes the shoulder hurt, "I probably need some Tylenol." Administered prn Tylenol 650 mg at 0745 with good effect. Pt had a brief few minutes of agitation in the afternoon around 1330. He became upset over hearing about other patient's pending discharges and had a loud verbal outburst reflecting his frustration over placement not being found yet for him. ANAMIKA Brizuela was present on the unit and went in to speak with the patient. Pt was yelling things like, "you're not even trying! It's either here or detention and detention is worse than intermediate now you know!" He also said, "I was ready to retire." Chata asked pt where he would go if he retired. Pt answered, "Into an apartment...downtown...with people watching me." Pt speaks slowly and draws out his syllables, he pauses at times before continuing with a sentence. This RN asked pt if he felt he needed a PRN. Offered PRN Ativan. Pt replied, "no but thank you Samy." Pt was able to calm down without further intervention on his own. S/I, H/I: Pt denies A/VH: +AH, intermittent random comments, denies VH. Sleep: Pt slept 7.75 hours last night per noc shift report. ADL's: Independent. Group attendance: Yes Were meds taken: Yes Any med S/E: None noted or reported. Mental Status Exam Appearance: Middle aged man with a reddish moustache and holcomb wearing glasses dressed in a purple t-shirt under a button up collared navy blue shirt and lama dress jacket with smallwood slacks, brown hiking boots, and an Sammarinese's ball cap. Eye contact: Good Behavior: Pleasant, cooperative, polite, loud with mild agitation at times though responds well to verbal de-escalation and redirection. Speech: Clear, audible, loud at times. Mood: "Fine," has irritable moments. Affect: Mostly calm/blunted with brightening and animation during interaction. Thought process: Mostly linear with intermittent delusional thinking/statements. Thought Content: Frustrated he is still here, he is ready to retire. Cognition: A/O X 3 Insight: Fair Judgment: Fair Interventions PRN's used: Tylenol 650 mg Therapeutic interventions: 1:1 assessment, active listening, therapeutic conversation, medication administration and monitoring, encouragement to attend groups, behavior monitoring and intervention as needed; verbal de-escalation, limit setting, redirection, reality orientation, positive reinforcement, Q 15 minute safety checks. Restraints/seclusion/emergency medication: N/A Justification of Continued Inpatient Treatment: Patient is LPS conserved and requires a safe and therapeutic environment until appropriate placement found.
--- NOTE | 2020-07-07 15:34 | NUR ---
RELL Dye has been accepted at [facility] and they are expected to open Jul 26. His packet is also at [facility]. LEXIE Squires
[2020-07-07] MEDS: LORazepam 1 MG tablet PO PRN (18:11)
[2020-07-07 19:43] VITALS: BP 116/78
[2020-07-07] MEDS: quetiapine 100mg tablet PO SCH (20:46)
--- NOTE | 2020-07-07 23:03 | NUR ---
Nursing Progress Note: Hardik Legal hold: LPS Report received from CAROLIN Skinner with use of SBAR. Why are they here: Pt decompensated at board and care; increasingly agitated with bizarre, paranoid and delusional statements. Access center assessed and brought to ED for evaluation and stabilization. Assessment What happened this shift: Pt was in his room during shift change. States that he didnt have a good day because no one would listen to him. He was later observed yelling and talking to himself. Pt appears grumpy and upset. Become angry at his roommate and starts yelling at him, for no apparent reason. He was able to calm himself down and did not need any medication or further intervention. He was cooperative for 1:1 physical assessment and took all his HS medications. Denies any A/VH but was observed responding to internal stimuli. He is still c/o shoulder pain and Tylenol was given with effectiveness. He spent some time in rec room watching TV and socializing appropriately with other patients before retiring to bed. No other outburst or behavioral issues per this shift. S/I, H/I: Denies A/VH: Denies Sleep: Currently sleeping, see sleep assessment for total hours ADL's: Independent. Group attendance: N/A Were meds taken: Yes Any med S/E: None reported or observed Mental Status Exam Appearance: Pt wears suit for most of the evening, then changed into scrubs Eye contact: Good, direct Behavior: Cooperative, somewhat agitated Speech: Clear, slow speech. Mood: Labile Affect: Congruent with mood Thought process: Disorganized Thought Content: Feeling bothered by his roommate, discharge, pain management Cognition: A&O X3 (not to why here) Insight: Poor Judgment: Poor Interventions PRN's used: None Therapeutic interventions: Maintained a safe and therapeutic environment, ensured contract for safety, provided clear and simple instructions, attempted to orient to reality, provided direction and positive reassurance as needed, monitored behaviors and need for intervention, and maintained Q 15min safety checks. Restraints/seclusion/emergency medication: N/A Justification of Continued Inpatient Treatment: Patient is LPS conserved and requires a safe and therapeutic environment until appropriate placement found.
[2020-07-08] MEDS: pantoprazole 40mg Tablet.DR PO SCH (07:46)
[2020-07-08] MEDS: haloperidol 5mg tablet PO SCH ×3 (07:47→20:22)
[2020-07-08] MEDS: LORazepam 0.5 MG tablet PO SCH ×2 (07:47→20:22)
[2020-07-08] MEDS: divalproex sodium 500mg tablet.DR PO SCH ×2 (07:47→20:22)
[2020-07-08 07:58] VITALS: BP 103/55
[2020-07-08] MEDS: trihexyphenidyl HCL 5 MG tablet PO SCH ×2 (08:24→20:23)
[2020-07-08] MEDS: acetaminophen 325mg tablet PO PRN ×2 (08:25→21:12)
--- NOTE | 2020-07-08 10:00 | NUR ---
Group Therapy: Process Group This Clinicians goals for this process group were as follows: (1) Ask scaling questions about patients current anxiety, depression, and irritability symptoms as a check-in. (2) Share psychoeducation about emotional relaxation techniques with patients, including information on: mindfulness, meditation controlled breathing, progressive muscle relaxation, guided visualization. (3) Model and practice controlled breathing, progressive muscle relaxation, and guided visualization with patients within the group milieu. (4) Process patients comments and reflections on the before-mentioned activities after they have participated in them. Patient identified experiencing the following levels of anxiety, depression, and anger/irritability while present in the group milieu. Anxiety: 02/01 Depression: 12/04 Anger/irritability: 03/04 Patient presented as properly oriented to person, place, and situation during the process group. Patient was dressed in nondescript, personal clothing that were appropriate within the milieu. Psychomotor activity was unremarkable. Patient's thought content was clear, and concrete, but was often marked by delusional content. Patient's thought process varied from being clear, coherent, and linear to being marked by significant delusional thinking. This Clinician did not observe Patient responding to any internal stimuli during session. The rate, latency, and tone of Client's speech was within normal limits. Patient sustained regular eye contact with this Clinician when he spoke to him. Patient presented as open and cooperative, and was verbally subdued and nonobtrusive within the group milieu. Patient calmly listened as this Clinician modeled and practiced controlled breathing, progressive muscle relaxation and guided visualization with patients during the process group. He quietly colored as a emotional grounding activity during the process group, which was an option made available to him, by this Clinician. Angelo Marks MA, LEXIE Addendum: 07/11/20 at 0832 by Angelo Marks Amended: Links added.
--- NOTE | 2020-07-08 14:58 | NUR ---
NURSING PROGRESS NOTE: Legal hold: LPS Report received from MARTINA Lamb with use of SBAR Why are they here: Pt decompensated at board and care; increasingly agitated with bizarre, paranoid and delusional statements. Access center assessed and brought to ED for evaluation and stabilization. Assessment What happened this shift: Pt slept in this morning with encouragement he woke up and ate breakfast with his peers. During breakfast he argued w/another peer and called him names. After lunch he went back to bed and slept most of the afternoon. He was seen numerous times sitting in the corner in his room talking loudly. S/I, H/I: Pt denies A/VH: Pt is seen numerous times sitting in a chair in his room with his lips moving Sleep: Pt slept on and off during the day ADL's: Independent. Group attendance: Yes Were meds taken: Yes Any med S/E: None noted or reported. Mental Status Exam Appearance: Dressed nicely Eye contact: Good Behavior: Angry on and off Speech: Clear, he gets loud at times. Mood: Irritable on and off Affect: blunted w/some brightening Thought process:Frustrated from being here too long. Thought Content: Tired of being here Cognition: A/O X 3 Insight: Fair Judgment: Fair Interventions PRN's used: Tylenol 650 mg Therapeutic interventions: provided 1:1 assessment, therapeutic communication and active listening, medication administration/education/monitoring, encouragement to attend groups, behavior monitoring and intervention as needed; verbal de-escalation, limit setting, Q 15 minute safety checks. Restraints/seclusion/emergency medication: N/A Justification of Continued Inpatient Treatment: Patient is LPS conserved and requires a safe and therapeutic environment until appropriate placement found.
[2020-07-08 19:28] VITALS: BP 113/80
[2020-07-08] MEDS: quetiapine 100mg tablet PO SCH ×2 (20:22→22:18)
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
[2020-07-09 07:51] VITALS: BP 100/50
[2020-07-09] MEDS: trihexyphenidyl HCL 5 MG tablet PO SCH ×2 (08:27→20:33)
[2020-07-09] MEDS: haloperidol 5mg tablet PO SCH ×3 (08:27→20:34)
[2020-07-09] MEDS: LORazepam 0.5 MG tablet PO SCH ×2 (08:27→20:33)
[2020-07-09] MEDS: divalproex sodium 500mg tablet.DR PO SCH ×2 (08:27→20:34)
[2020-07-09] MEDS: pantoprazole 40mg Tablet.DR PO SCH (08:43)
[2020-07-09] MEDS: acetaminophen 325mg tablet PO PRN (08:44)
--- NOTE | 2020-07-09 16:46 | NUR ---
NURSING PROGRESS NOTE: Legal hold: LPS Report received from MARTINA Lamb with use of SBAR Why are they here: Pt decompensated at board and care; increasingly agitated with bizarre, paranoid and delusional statements. Access center assessed and brought to ED for evaluation and stabilization. Assessment What happened this shift: Due to behavior problems, getting along with his roommate last night he was moved to a private room. Per report pt was refusing to turn the light off at bedtime last night which kept his roommate up and they argued for an hour or so last night. Pt keeps to himself rarely socializing with peers. He takes his medications as prescribed. He states he is tired of being here and "just want to leave." S/I, H/I: Pt denies A/VH: He appears to RIS Sleep: Pt slept on and off during the day ADL's: Independent. Group attendance: Yes Were Meds taken: Yes Any med S/E: None noted or reported. Mental Status Exam Appearance: Dressed nicely with a button down jacket on Eye contact: Good Behavior: isolated today and quiet Speech: Clear, audible Mood: calm and quiet Affect: blunted w/some brightening Thought process: Frustrated from being here too long. Thought Content: Tired of being here Cognition: A/O X 3 Insight: Fair Judgment: Fair Interventions PRN's used: Tylenol 650 mg Therapeutic interventions: provided 1:1 assessment, therapeutic communication and active listening, medication administration/education/monitoring, encouragement to attend groups, behavior monitoring and intervention as needed; verbal de-escalation, limit setting, Q 15 minute safety checks. Restraints/seclusion/emergency medication: N/A Justification of Continued Inpatient Treatment: Patient is LPS conserved and requires a safe and therapeutic environment until appropriate placement found.
[2020-07-09 19:00] VITALS: BP 115/79
[2020-07-09] MEDS: quetiapine 100mg tablet PO SCH (20:33)
--- NOTE | 2020-07-10 00:35 | NUR ---
NURSING PROGRESS NOTE: Legal hold: LPS Report received from MARTINA Skinner with use of SBAR Why are they here: Pt decompensated at board and care; increasingly agitated with bizarre, paranoid and delusional statements. Access center assessed and brought to ED for evaluation and stabilization. Assessment What happened this shift: Pt was calm and social this shift. No issues with his peers. Pt watched tv for awhile in group room and was pleasant. After snack and meds pt went to sleep. S/I, H/I: Pt denies A/VH: He appears to RIS Sleep: Pt slept on and off during the day ADL's: Independent. Group attendance: Yes Were Meds taken: Yes Any med S/E: None noted or reported. Mental Status Exam Appearance: Dressed nicely with a button down jacket on Eye contact: Good Behavior: isolated today and quiet Speech: Clear, audible Mood: calm and quiet Affect: blunted w/some brightening Thought process: Frustrated from being here too long. Thought Content: Tired of being here Cognition: A/O X 3 Insight: Fair Judgment: Fair Interventions PRN's used: none Therapeutic interventions: provided 1:1 assessment, therapeutic communication and active listening, medication administration/education/monitoring, encouragement to attend groups, behavior monitoring and intervention as needed; verbal de-escalation, limit setting, Q 15 minute safety checks. Restraints/seclusion/emergency medication: N/A Justification of Continued Inpatient Treatment: Patient is LPS conserved and requires a safe and therapeutic environment until appropriate placement found.
[2020-07-10 07:48] VITALS: BP 107/65
[2020-07-10] MEDS: LORazepam 0.5 MG tablet PO SCH ×2 (08:41→20:16)
[2020-07-10] MEDS: haloperidol 5mg tablet PO SCH ×3 (08:41→20:16)
[2020-07-10] MEDS: pantoprazole 40mg Tablet.DR PO SCH (08:41)
[2020-07-10] MEDS: divalproex sodium 500mg tablet.DR PO SCH ×2 (08:41→20:15)
[2020-07-10] MEDS: trihexyphenidyl HCL 5 MG tablet PO SCH ×2 (08:41→11:38)
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
[2020-07-10] MEDS: acetaminophen 325mg tablet PO PRN (18:20)
[2020-07-10 20:00] VITALS: BP 131/84
[2020-07-10] MEDS: quetiapine 100mg tablet PO SCH (20:16)
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
[2020-07-11] MEDS: haloperidol 5mg tablet PO SCH ×3 (07:22→20:15)
[2020-07-11] MEDS: trihexyphenidyl HCL 5 MG tablet PO SCH ×2 (07:22→20:14)
[2020-07-11] MEDS: pantoprazole 40mg Tablet.DR PO SCH (07:23)
[2020-07-11] MEDS: divalproex sodium 500mg tablet.DR PO SCH (07:23)
[2020-07-11] MEDS: LORazepam 0.5 MG tablet PO SCH ×2 (07:23→20:17)
[2020-07-11 08:00] VITALS: BP 122/78
[2020-07-11] MEDS: acetaminophen 325mg tablet PO PRN (09:15)
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
[2020-07-11] MEDS: trihexyphenidyl HCL 5 MG tablet PO PRN (13:38)
--- NOTE | 2020-07-11 15:17 | NUR ---
NURSING PROGRESS NOTE: Legal hold: LPS Report received from MARTINA Lamb with use of SBAR Why are they here: Pt decompensated at board and care; increasingly agitated with bizarre, paranoid and delusional statements. Access center assessed and brought to ED for evaluation and stabilization. Assessment What happened this shift: Hardik has been quiet this shift. He paces the halls. Again he requested Artane, PRN around noon time. He attended group and at one times was seen talking to another pt at a table in the community room. S/I, H/I: Pt denies A/VH: Endorses A/H Sleep: N/A ADL's: Independent. Group attendance: Yes Were Meds taken: Yes Any med S/E: None noted or reported. Mental Status Exam Appearance: Dressed nicely wearing slacks and a button down dress coat Eye contact: Good Behavior: Out in the group today socializing w/peers and watching TV Speech: Clear, audible Mood: Euthymic Affect: blunted w/some brightening Thought process: tangential Thought Content: fearful of others Cognition: A/O X 3 Insight: Fair Judgment: Fair Interventions PRN's used: Tylenol 650 mg Therapeutic interventions: provided 1:1 assessment, therapeutic communication and active listening, medication administration/education/monitoring, encouragement to attend groups, behavior monitoring and intervention as needed; verbal de-escalation, limit setting, Q 15 minute safety checks. Restraints/seclusion/emergency medication: N/A Justification of Continued Inpatient Treatment: Patient is LPS conserved and requires a safe and therapeutic environment until appropriate placement found.
--- NOTE | 2020-07-11 17:40 | NUR ---
User: Adelaida Monsalve Date: 07/11/20 16:05 Type: Group Therapy Notes Patient: Hardik Schafer : 1965 Age/Sex: 54/M Unit#: [id number] [address]Bed: [address] Type Art Tx Group Date Jul 11, 2020 Group Time 14:00 Group Focus Social and Emotional Art Expression Activity Goal Addressed Communication and Self Esteem: ID my inner self/perceptions Preoccupied Affect Other Cognition Blocked Mood Other Mood Comment Unable to fully asses, as patient left the group session w/o communication Intervention Discussion Experiential Intervention Comment Morning Group Review and Emotional Pain Rating Scale was used at the beginning of the session. Patients were provided with a guided relaxation to practice relaxation and stress management. Patient were then asked to select a picture from a pre-selection of pictures. Patients then were directed to color and complete a journaling exercise. Response Decreased Interest Participations Level Variable Teaching Method Discussion Experiential Goals Met Needs Reinforcement Adelaida Monsalve MA, FUR POLISHER #[id number] Group Art Therapist, [facility] Addendum: 07/11/20 at 1745 by Adelaida Monsalve SS Amended: Links added.
[2020-07-11 20:00] VITALS: BP 135/75
[2020-07-11] MEDS: divalproex sod 250mg ER (24-hour) tablet PO SCH (20:14)
[2020-07-11] MEDS: quetiapine 100mg tablet PO SCH (20:15)
--- NOTE | 2020-07-11 23:35 | NUR ---
NURSING PROGRESS NOTE: Legal hold: LPS Report received from MARTINA Skinner with use of SBAR Why are they here: Pt decompensated at board and care; increasingly agitated with bizarre, paranoid and delusional statements. Access center assessed and brought to ED for evaluation and stabilization. Assessment What happened this shift: Patient was up and in group room watching tv at shift change. He was less agitated this shift talked about his Depakote and rebutted his thought that he is pooping Depakote eggs. He then stated that there feeding the snakes and salmon in the river to swim to the base of the dam to eat the electric ells that the power house is creating from the electricity being generated. Pt was med compliant despite the Depakote egg delusion. S/I, H/I: Pt denies A/VH: Endorses A/H Sleep: N/A ADL's: Independent. Group attendance: Yes Were Meds taken: Yes Any med S/E: None noted or reported. Mental Status Exam Appearance: Dressed nicely wearing slacks and a button down dress coat Eye contact: Good Behavior: Out in the group today socializing w/peers and watching TV Speech: Clear, audible Mood: Euthymic Affect: blunted w/some brightening Thought process: tangential Thought Content: fearful of others Cognition: A/O X 3 Insight: Fair Judgment: Fair Interventions PRN's used: Tylenol 650 mg Therapeutic interventions: provided 1:1 assessment, therapeutic communication and active listening, medication administration/education/monitoring, encouragement to attend groups, behavior monitoring and intervention as needed; verbal de-escalation, limit setting, Q 15 minute safety checks. Restraints/seclusion/emergency medication: N/A Justification of Continued Inpatient Treatment: Patient is LPS conserved and requires a safe and therapeutic environment until appropriate placement found.
[2020-07-12] MEDS ORDERED: tuberculin, purif. prot. deriv. 5 units/0.1ml ID ONE (07:30)
[2020-07-12] MEDS: pantoprazole 40mg Tablet.DR PO SCH (07:41)
[2020-07-12] MEDS: trihexyphenidyl HCL 5 MG tablet PO SCH ×2 (07:41→20:24)
[2020-07-12] MEDS: divalproex sod 250mg ER (24-hour) tablet PO SCH ×2 (07:41→20:23)
[2020-07-12] MEDS: haloperidol 5mg tablet PO SCH ×3 (07:41→20:24)
[2020-07-12] MEDS: acetaminophen 325mg tablet PO PRN (07:42)
[2020-07-12] MEDS: LORazepam 0.5 MG tablet PO SCH ×2 (07:42→20:23)
[2020-07-12 07:50] VITALS: BP 111/76
--- NOTE | 2020-07-12 08:18 | NUR ---
PLACEMENT Hardik has been accepted at [facility] which is expected to open in Jul. Faxed updated notes, 2 weeks of temps, and med list to [facility] office at their request for placement purposes. [facility] has requested a TB test. Requested PPD. Will fax once read. LEXIE Squires
--- NOTE | 2020-07-12 10:00 | NUR ---
Group Therapy: Process Group This Clinicians goal for this process group were as follows: (1) Ask scaling questions about patients current anxiety, depression, and irritability symptoms as a check-in (2) Introduce and provide psychoeducation on distress tolerance skills. (2) Introduce the concept of radical acceptance and using our senses to self-soothe. (3) Share the acronym, ImmanuelE Activities; Contributing; Comparisons; Emotions; Pushing Away; Thoughts; and Sensations (4) Process Clients thoughts and reflections on this topic within the group milieu. Patient identified experiencing the following levels of anxiety, depression, and anger/irritability while present in the group milieu. Anxiety: 0/10 Depression: 1/10 Anger/irritability: 0/10 Patient presented as properly oriented to person, place, and situation during the process group. Patient was dressed in nondescript, personal clothing that were appropriate within the milieu. Psychomotor activity was unremarkable. Patient made two paper airplanes out of the psychoeducation handouts that this Clinician handed to him in a nonobtrusive manner. Patient's thought content was clear, and concrete. Patient's thought process varied between being clear, coherent, and linear, and being marked by tangential thinking, flight of ideas and delusional thinking. For example Patient reported that in the past when he would walk down the road he believed that there were "Snipers on the roofs that were shooting at people." However, Patient then stated, "Those were delusions. I've never told anyone that before." This Clinician encouraged Patient to be open in talking to safe technical support consultant about perceived discrepancies in his view of reality vs others in order to allow them to assist him in engaging in healthy reality-testing. This Clinician did not observe Patient responding to any internal stimuli during session. The rate, latency, and tone of Client's speech was within normal limits. Patient sustained regular eye contact with this Clinician when he spoke to him. Patient presented in calm euthymic mood, with congruent affect during the process group. Patient presented as open and cooperative, and was verbally engaged and nonobtrusive within the group milieu. Patient was able to identify sensations that he could experience with all five of his senses that could assist him in calming down during situations that were beyond his control to change. Patient reported in particular that he liked the taste of "[place]." Angelo Marks MA, STORE GIFT WRAP ASSOCIATE Addendum: 07/12/20 at 1156 by Angelo Marks SS Amended: Links added.
--- NOTE | 2020-07-12 11:56 | NUR ---
75-100% PO intake, great appetite. Wt discrepancy noted, [facility] 67 [facility] Will monitor for next wt check however a weight increase of 24 kg in one week in unlikely. No nutrition problem. Recommend: 1. continue regular diet 2. weight weekly Addendum: 07/12/20 at [address] Amended: Links added.
[2020-07-12] MEDS: trihexyphenidyl HCL 5 MG tablet PO PRN (13:16)
--- NOTE | 2020-07-12 16:27 | NUR ---
NURSING PROGRESS NOTE: Legal hold: LPS Report received from RN with use of SBAR Why are they here: Pt decompensated at board and care; increasingly agitated with bizarre, paranoid and delusional statements. Access center assessed and brought to ED for evaluation and stabilization. Assessment What happened this shift: Received Pt in hallway already dressed and ready for the day. Hardik cooperative with vitals and was calmly walking the halls. Pt c/o shoulder ache and wanted Tylenol with his AM meds, which he received. Pt ate meals well and overall in euthymic mood. He talked about his next IMD and is a little anxious about the unknown. S/I, H/I: Pt denies A/VH: Endorses A/H Sleep: None this shift ADL's: Independent. Group attendance: Yes Were Meds taken: Yes Any med S/E: None noted or reported. Mental Status Exam Appearance: Casual in suit jacket Eye contact: Good Behavior: Pleasant mood, cooperative Speech: Clear, audible Mood: Euthymic Affect: Restricted Thought process: Circumstantial Thought Content: About upcoming placement Cognition: A/O X 3 Insight: Fair Judgment: Fair Interventions PRN's used: Tylenol 650 mg Therapeutic interventions: provided 1:1 assessment, therapeutic communication and active listening, medication administration/education/monitoring, encouragement to attend groups, behavior monitoring and intervention as needed; verbal de-escalation, limit setting, Q 15 minute safety checks. Restraints/seclusion/emergency medication: N/A Justification of Continued Inpatient Treatment: Patient is LPS conserved and requires a safe and therapeutic environment until appropriate placement found.
[2020-07-12 20:13] VITALS: BP 124/76
[2020-07-12] MEDS: quetiapine 100mg tablet PO SCH (20:23)
--- NOTE | 2020-07-13 00:21 | NUR ---
NURSING PROGRESS NOTE: Legal hold: LPS Report received from Susanne MACK with use of SBAR Why are they here: Pt decompensated at board and care; increasingly agitated with bizarre, paranoid and delusional statements. Access center assessed and brought to ED for evaluation and stabilization. Assessment What happened this shift: Pt was up and social in hallway. Pleasant and talkative. talked about his being ready to go somewhere else. He is med compliant cooperative with staff. He ate snack in dinning room with peers. S/I, H/I: Pt denies A/VH: Endorses A/H Sleep: None this shift ADL's: Independent. Group attendance: Yes Were Meds taken: Yes Any med S/E: None noted or reported. Mental Status Exam Appearance: Casual in suit jacket Eye contact: Good Behavior: Pleasant mood, cooperative Speech: Clear, audible Mood: Euthymic Affect: Restricted Thought process: Circumstantial Thought Content: About upcoming placement Cognition: A/O X 3 Insight: Fair Judgment: Fair Interventions PRN's used: Tylenol 650 mg Therapeutic interventions: provided 1:1 assessment, therapeutic communication and active listening, medication administration/education/monitoring, encouragement to attend groups, behavior monitoring and intervention as needed; verbal de-escalation, limit setting, Q 15 minute safety checks. Restraints/seclusion/emergency medication: N/A Justification of Continued Inpatient Treatment: Patient is LPS conserved and requires a safe and therapeutic environment until appropriate placement found.
[2020-07-13] MEDS: acetaminophen 325mg tablet PO PRN ×2 (07:06→13:52)
[2020-07-13 07:36] VITALS: BP 93/60
[2020-07-13] MEDS: pantoprazole 40mg Tablet.DR PO SCH (07:39)
[2020-07-13] MEDS: divalproex sod 250mg ER (24-hour) tablet PO SCH ×2 (07:39→20:08)
[2020-07-13] MEDS: LORazepam 0.5 MG tablet PO SCH ×2 (07:39→20:06)
[2020-07-13] MEDS: haloperidol 5mg tablet PO SCH ×3 (07:39→20:07)
[2020-07-13] MEDS: trihexyphenidyl HCL 5 MG tablet PO SCH ×3 (07:39→20:07)
--- NOTE | 2020-07-13 17:46 | NUR ---
NURSING PROGRESS NOTE: Legal hold: LPS Report received from RN with use of SBAR Why are they here: Pt decompensated at board and care; increasingly agitated with bizarre, paranoid and delusional statements. Access center assessed and brought to ED for evaluation and stabilization. Assessment What happened this shift: Patient asleep at change of shift and up before breakfast. Patient is social and smiling today. Patient is still psychotic and hearing voices and delusional at times. Patient denies suicidal/homicidal ideation. Patient waved to another patient while he was in his room crying. Not sure if he was trying to agitate patient or if he really was totally socially unaware. Patient having some pain to his right shoulder which he has a long history of pain. RN giving patient Tylenol for pain. S/I, H/I: Pt denies A/VH: Endorses A/H Sleep: None this shift ADL's: Independent. Group attendance: Yes Were Meds taken: Yes Any med S/E: None noted or reported. Mental Status Exam Appearance: Casual in suit jacket Eye contact: Good Behavior: Pleasant mood, cooperative Speech: Clear, audible Mood: Euthymic Affect: Restricted Thought process: Circumstantial Thought Content: About upcoming placement Cognition: A/O X 3 Insight: Fair Judgment: Fair Interventions PRN's used: Tylenol 650 mg x 2 Therapeutic interventions: provided 1:1 assessment, therapeutic communication and active listening, medication administration/education/monitoring, encouragement to attend groups, behavior monitoring and intervention as needed; verbal de-escalation, limit setting, Q 15 minute safety checks. Restraints/seclusion/emergency medication: N/A Justification of Continued Inpatient Treatment: Patient is LPS conserved and requires a safe and therapeutic environment until appropriate placement found.
[2020-07-13 19:36] VITALS: BP 115/74
[2020-07-13] MEDS: quetiapine 100mg tablet PO SCH (20:07)
--- NOTE | 2020-07-14 05:29 | NUR ---
Nursing Progress Note: Legal hold: LPS Client on involuntary status for GD Report received from Vinod RN with use of SBAR. Why are they here: Pt decompensated at board and care; increasingly agitated with bizarre, paranoid and delusional statements. Access center assessed and brought to ED for evaluation and stabilization. Assessment What has happened this shift: Pt eats snack in the group room with peers while watching a movie. He pours his cranberry juice into his milk and drinks it. Infusion Rn asks him if this tastes good and he responds, "it tastes arelis good!" Pt makes good eye contact and takes his HS medications without issue. His speech is loud , clear, and direct. Pt is cooperative with 1:1 assessment. He denies SI/HI/AH/VH. S/I, H/I: Pt denies A/VH: denies at this time, but appears to be internally preoccupied at times Sleep: see sleep assessment notation ADL's: Independent. Group attendance: yes Were meds taken: Yes Any med S/E: None noted or reported Mental Status Exam Appearance: neat, clean Eye contact: Good Behavior: Paces the unit, socializes Speech: Speaks in a slow drawl, clear, audible, loud at times. Mood: upbeat Affect: Pleasant, congruent with mood Thought process: Delusional Thought Content: circumstantial Cognition: A/O X 3, disoriented to situation. Insight: Poor Judgment: Poor Interventions PRN's used: none Therapeutic interventions: 1:1 assessment,provided clear and simple instructions, active listening, therapeutic conversation, medication administration/education/monitoring, behavior monitoring and intervention; reality orientation, limit setting, verbal de-escalation, redirection, positive reinforcement, Q 15 minute safety checks. Restraints/seclusion/emergency medication: N/A Justification of Continued Inpatient Treatment: Patient needs interruption of current crisis with adjustment of medication in a safe and therapeutic environment.
[2020-07-14] MEDS: divalproex sod 250mg ER (24-hour) tablet PO SCH ×2 (08:04→20:10)
[2020-07-14] MEDS: trihexyphenidyl HCL 5 MG tablet PO SCH ×3 (08:04→20:09)
[2020-07-14] MEDS: pantoprazole 40mg Tablet.DR PO SCH (08:04)
[2020-07-14] MEDS: haloperidol 5mg tablet PO SCH ×3 (08:04→20:09)
[2020-07-14] MEDS: LORazepam 0.5 MG tablet PO SCH ×2 (08:05→20:09)
--- NOTE | 2020-07-14 10:00 | NUR ---
Group Therapy: Process Group This Clinicians goal for this process group were as follows: (1) Ask scaling questions about patients current anxiety, depression, and irritability symptoms as a check-in. (2) Provide psychoeducation on grounding activities as a means to reduce the acuity of unwanted mental health symptoms. (3) Introduce mandalas as one such activity for group participation within the milieu. (4) Check-in with patients during the coloring activity to reinforce the importance of engaging in adaptive grounding activities. Patient identified experiencing the following levels of anxiety, depression, and anger/irritability while present in the group milieu. Anxiety: 3/10 Depression: 0/10 Anger/irritability: 0/10 Patient presented as properly oriented to person, place, and situation during the process group. Patient was dressed in smallwood suit jacket, over a plain purple t-shirt, with matching smallwood slacks. He also wore a blue [employer] baseball cap. Psychomotor activity was unremarkable. Patient's thought content was clear, and concrete Patient's thought process was mostly clear, coherent, and linear. This Clinician observed less delusional and tangential thinking in Patient during this particular process group as opposed to some that he has attended this past week. This Clinician did not observe Patient responding to any internal stimuli during session. The rate, latency, and tone of Client's speech was within normal limits. He speaks with a very small slur in his speech. Patient sustained regular eye contact with this Clinician when he spoke to him. Patient presented in calm euthymic mood, with congruent affect during the process group. Patient presented as open and cooperative, and was verbally engaged and nonobtrusive within the group milieu. Patient chose not to participate in the emotional grounding activity of coloring mandalas, but he was verbally engaged in an appropriate fashion in his interaction with his peers. On occasion, however, another Patient laughed in a certain style, and this Clinician observed that Patient began mimicking this other Patient's laugh. This Clinician asked Patient what he was doing. Client stated, "I'm just looking down," which was an accurate depiction of where his head was focused when this Clinician asked him the question. He stopped mimicking the other Patient's laugh at that time. It is this Clinician's impression, that this mimicking behavior was not done maliciously. Patient shared an occasion where in a past placement that he talked during a television show that disrupted the other members of that milieu. Patient shared his belief that his behavior in that situation was inappropriate and that he wouldn't do it again. Angelo Marks MA, BORING MACHINE OPERATOR PRODUCTION Addendum: 07/14/20 at 1149 by Angelo Marks SS Amended: Links added.
--- NOTE | 2020-07-14 11:12 | NUR ---
NURSING PROGRESS NOTE: Legal hold: LPS Report received from RN with use of SBAR Why are they here: Pt decompensated at board and care; increasingly agitated with bizarre, paranoid and delusional statements. Access center assessed and brought to ED for evaluation and stabilization. Assessment What happened this shift: Patient was asleep at change of shift and up soon after. Patient appears happy today. Patient calm and cooperative. Patient is social but is still delusional. Patient takes his medications and watches television. Patient denies suicidal/homicidal ideation. Patient had a PPD earlier this week and has placement soon. S/I, H/I: Pt denies A/VH: Endorses A/H Sleep: None this shift ADL's: Independent. Group attendance: Yes Were Meds taken: Yes Any med S/E: None noted or reported. Mental Status Exam Appearance: Casual in suit jacket Eye contact: Good Behavior: Pleasant mood, cooperative Speech: Clear, audible Mood: Euthymic Affect: Restricted Thought process: Circumstantial Thought Content: About upcoming placement Cognition: A/O X 3 Insight: Fair Judgment: Fair Interventions PRN's used: None yet Therapeutic interventions: provided 1:1 assessment, therapeutic communication and active listening, medication administration/education/monitoring, encouragement to attend groups, behavior monitoring and intervention as needed; verbal de-escalation, limit setting, Q 15 minute safety checks. Restraints/seclusion/emergency medication: N/A Justification of Continued Inpatient Treatment: Patient is LPS conserved and requires a safe and therapeutic environment until appropriate placement found.
--- NOTE | 2020-07-14 18:07 | NUR ---
RN read negative PPD, left arm.
[2020-07-14 20:00] VITALS: BP 115/75
[2020-07-14] MEDS: quetiapine 100mg tablet PO SCH (20:10)
[2020-07-14] MEDS: acetaminophen 325mg tablet PO PRN (22:33)
--- NOTE | 2020-07-15 00:43 | NUR ---
Nursing Progress Note: Legal hold: LPS Client on involuntary status for GD Report received from Lon MACK with use of SBAR. Why are they here: Pt decompensated at board and care; increasingly agitated with bizarre, paranoid and delusional statements. Access center assessed and brought to ED for evaluation and stabilization. Assessment What has happened this shift: Pt is up and socializing at shift change. He is wearing a sport coat with slacks. We is very pleasant and states he had a "great day". He smiles often and socializes with peers. Pt is medication compliant and cooperative with 1:1 assessment. S/I, H/I: Pt denies A/VH: denies at this time, but appears to be internally preoccupied at times Sleep: asleep at this time ADL's: Independent. Group attendance: yes Were meds taken: Yes Any med S/E: None noted or reported Mental Status Exam Appearance: neat, clean Eye contact: Good Behavior: Paces the unit, socializes Speech: Speaks in a slow drawl, clear, audible, loud at times. Mood: upbeat Affect: Pleasant, congruent with mood Thought process: Delusional Thought Content: circumstantial Cognition: A/O X 3, disoriented to situation. Insight: Poor Judgment: Poor Interventions PRN's used: none Therapeutic interventions: 1:1 assessment,provided clear and simple instructions, active listening, therapeutic conversation, medication administration/education/monitoring, behavior monitoring and intervention; reality orientation, limit setting, verbal de-escalation, redirection, positive reinforcement, Q 15 minute safety checks. Restraints/seclusion/emergency medication: N/A Justification of Continued Inpatient Treatment: Patient needs interruption of current crisis with adjustment of medication in a safe and therapeutic environment.
[2020-07-15] MEDS: trihexyphenidyl HCL 5 MG tablet PO SCH ×3 (07:38→20:31)
[2020-07-15] MEDS: haloperidol 5mg tablet PO SCH ×3 (07:38→20:30)
[2020-07-15] MEDS: pantoprazole 40mg Tablet.DR PO SCH (07:39)
[2020-07-15] MEDS: divalproex sod 250mg ER (24-hour) tablet PO SCH ×2 (07:39→20:32)
[2020-07-15] MEDS: LORazepam 0.5 MG tablet PO SCH ×2 (07:39→20:33)
[2020-07-15] MEDS: acetaminophen 325mg tablet PO PRN (07:41)
[2020-07-15 08:00] VITALS: BP 108/65
--- NOTE | 2020-07-15 10:00 | NUR ---
Group Therapy: Process Group This Clinicians goals for this process group were as follows: (1) Ask scaling questions about Patients current anxiety, depression, and irritability symptoms as a check-in. (2) Share psychoeducation about emotional escalation as it relates to stress and negative symptoms, Fight, flight, freeze. (2) Provide psychoeducation on the STOPP acronym: Stop, Take a Breath, Observe the situation, Put things into perspective, and, Practice what works. (3) Share psychoeducation on principles of mindfulness and emotional relaxation techniques that Patients may utilize to reduce the acuity of unwanted emotional escalation. (5) Process Clients thoughts and reflections on this topic within the group milieu. Patient presented as properly oriented to person, place, and situation during the process group. Patient was dressed in nondescript, personal clothing that were appropriate within the milieu. Psychomotor activity was unremarkable. Patient's thought content was clear, and concrete. Patient's thought process varied between being clear, coherent, and linear, to being marked by delusional and tangential thinking and flight of ideas. This Clinician did not observe Patient responding to any internal stimuli during session. The rate, latency, and tone of Client's speech was within normal limits. Patient sustained regular eye contact with this Clinician. Patient presented in calm euthymic mood, with congruent affect during the process group. Patient presented as open and cooperative, and was verbally engaged and nonobtrusive within the group milieu. Patient arrived later into the process group; hence, this Clinician was not able to ask Patient answers to scaling questions about his levels of anxiety, depression, and anger/irritability. Patient occasionally made insightful comments during the discussion on the STOPP method of emotional deescalation. Angelo Marks MA, SENIOR TECHNICAL ARCHITECT Addendum: 07/18/20 at 0805 by Angelo Marks SS Amended: Links added.
--- NOTE | 2020-07-15 12:27 | NUR ---
NURSING PROGRESS NOTE Legal hold: LPS Report received from RN with use of SBAR Why are they here: Pt decompensated at board and care; increasingly agitated with bizarre, paranoid and delusional statements. Access center assessed and brought to ED for evaluation and stabilization. Assessment What happened this shift: Received Pt in hallway as he approached the nurses station and he c/o ache in his rt shoulder. Pt cooperative with vitals and ate meals in community room with others. He took AM meds along with prn tylenol for shoulder ache which was effective. Pt socializing with others on unit and went to [facility] for break. He is excited about the news of going to [facility] when it opens in Jul. Pt joking today about time travel and aspects of the movie back to the future. S/I, H/I: Pt denies A/VH: Endorses A/H Sleep: None this shift ADL's: Independent. Group attendance: Yes Were Meds taken: Yes Any med S/E: None noted or reported. Mental Status Exam Appearance: Casual in suit jacket Eye contact: Good Behavior: Pleasant mood, cooperative Speech: Clear, audible Mood: Euthymic Affect: Jovial Thought process: Circumstantial Thought Content: Excited about placement Cognition: A/O X 3 Insight: Fair Judgment: Fair Interventions PRN's used: Tylenol 650 mg Therapeutic interventions: provided 1:1 assessment, therapeutic communication and active listening, medication administration/education/monitoring, encouragement to attend groups, behavior monitoring and intervention as needed; verbal de-escalation, limit setting, Q 15 minute safety checks. Restraints/seclusion/emergency medication: N/A Justification of Continued Inpatient Treatment: Patient is LPS conserved and requires a safe and therapeutic environment until appropriate placement found.
[2020-07-15 20:00] VITALS: BP 126/83
[2020-07-15] MEDS: quetiapine 100mg tablet PO SCH (20:30)
--- NOTE | 2020-07-16 02:12 | NUR ---
Nursing Progress Note: Legal hold: LPS Client on involuntary status for GD Report received from Lon MACK with use of SBAR. Why are they here: Pt decompensated at board and care; increasingly agitated with bizarre, paranoid and delusional statements. Access center assessed and brought to ED for evaluation and stabilization. Assessment What has happened this shift: Pt is happy and talkative at shift change. He gets into a small verbal altercation with another male patient claiming that the other patient kept "following me and trying to give me notes." This was not witnessed by staff. PT offered Ativan for agitation but he declines. PT was able to be verbally calmed down. Lan Specialist reassures him that he is okay and he doesn't have to be around said patient. He smiles and says, "yea you're right I don't have to." Pt is cooperative with 1:1 assessment. He denies SI/HI/AH/VH. S/I, H/I: Pt denies A/VH: denies Sleep: see sleep assessment notation ADL's: Independent. Group attendance: yes Were meds taken: Yes Any med S/E: None noted or reported Mental Status Exam Appearance: neat, clean Eye contact: Good Behavior: Paces the unit, socializes Speech: Speaks in a slow drawl, clear, audible, loud at times. Mood: upbeat Affect: Pleasant, congruent with mood Thought process: Delusional Thought Content: circumstantial Cognition: A/O X 3, disoriented to situation. Insight: Poor Judgment: Poor Interventions PRN's used: none Therapeutic interventions: 1:1 assessment,provided clear and simple instructions, active listening, therapeutic conversation, medication administration/education/monitoring, behavior monitoring and intervention; reality orientation, limit setting, verbal de-escalation, redirection, positive reinforcement, Q 15 minute safety checks. Restraints/seclusion/emergency medication: N/A Justification of Continued Inpatient Treatment: Patient needs interruption of current crisis with adjustment of medication in a safe and therapeutic environment.
[2020-07-16 07:00] VITALS: BP 106/64
[2020-07-16] MEDS: pantoprazole 40mg Tablet.DR PO SCH (07:31)
[2020-07-16] MEDS: LORazepam 0.5 MG tablet PO SCH ×2 (07:32→20:09)
[2020-07-16] MEDS: haloperidol 5mg tablet PO SCH ×3 (07:32→20:09)
[2020-07-16] MEDS: trihexyphenidyl HCL 5 MG tablet PO SCH ×3 (07:32→20:10)
[2020-07-16] MEDS: divalproex sod 250mg ER (24-hour) tablet PO SCH ×2 (07:32→20:09)
[2020-07-16] MEDS: acetaminophen 325mg tablet PO PRN ×2 (10:51→16:12)
--- NOTE | 2020-07-16 17:25 | NUR ---
NURSING PROGRESS NOTE Legal hold: LPS Report received from MARTINA Lamb with use of SBAR Why are they here: Pt decompensated at board and care; increasingly agitated with bizarre, paranoid and delusional statements. Access center assessed and brought to ED for evaluation and stabilization. Assessment What happened this shift: Patient sleeping at shift change. Takes all medications without incident. Patient has spent part of the day in the rec room picking verbal fights with pt in [address]. Called him a cocksucker, attempted to block other patients exit. Patient was told to go to his room and he is sitting in there yelling out at other patient in rec room. Patient was spoke to by several staff members to try and de-escalate him, patient insists that he is doing nothing wrong. Offered p.o. Seroquel and Ativan, patient is refusing p.o. medication intervention. Patient is loud and argumentative. Security called for standby. Patient slowly de-escalated. Pt is acting paranoid, stating that the other patient in rec room is laughing at him, when this is not the case. This morning when the bickering started, Hardik was telling this RN that he was a doctor. When informed that he was not a doctor, he said well Im a better than Dr. Obrien or Kamaljit. Patient is making delusional statements. S/I, H/I: Pt denies A/VH: Endorses A/H Sleep: No naps. ADL's: Independent. Group attendance: Yes Were Meds taken: Yes Any med S/E: None noted or reported. Mental Status Exam Appearance: Well groomed in lama suit. Eye contact: Good Behavior: Irritable, agitating other patients. Speech: Loud, clear, foul language. Mood: Agitated, paranoid. Affect: Labile. Thought process: Circumstantial, paranoid. Delusional. Thought Content: Believes other patient is laughing at him. Cognition: A/O X 3 Insight: Poor Judgment: Poor. Interventions PRN's used: Tylenol 650 mg x2 Therapeutic interventions: provided 1:1 assessment, therapeutic communication and active listening, medication administration/education/monitoring, encouragement to attend groups, behavior monitoring and intervention as needed; verbal de-escalation, limit setting, Q 15 minute safety checks. Restraints/seclusion/emergency medication: N/A Justification of Continued Inpatient Treatment: Patient is LPS conserved and requires a safe and therapeutic environment until appropriate placement found.
[2020-07-16 20:00] VITALS: BP 114/72
[2020-07-16] MEDS: quetiapine 100mg tablet PO SCH (20:10)
--- NOTE | 2020-07-17 00:56 | NUR ---
NURSING PROGRESS NOTE Legal hold: LPS Report received from MARTINA Lamb with use of SBAR Why are they here: Pt decompensated at board and care; increasingly agitated with bizarre, paranoid and delusional statements. Access center assessed and brought to ED for evaluation and stabilization. Assessment What happened this shift: With the exception of getting up for snacks this patient isolated in his room on NOC shift. Patient is alert, he is a little slow initially with his verbal responses. Patient tells this poem writer he is a little depressed. "I got into an argument earlier." Patient denies H/I or S/I, he denies any hallucinations. Patient admits to feeling depressed. Patient will not elaborate on other feelings or thoughts. S/I, H/I: Pt denies. A/VH: Denies. Sleep: Sleeping well. ADL's: Independent. Group attendance:N/A. Were Meds taken: Yes, medication compliant. Any med S/E: None noted or reported. Mental Status Exam Appearance: Street clothes, looks a little unkept. Eye contact: Good. Behavior: Isolating in room, minimizing problems. Speech: Soft speech, normal rate, rhythm and tone. Mood: Quiet, sleepy. Affect: Labile. Thought process: Circumstantial. Thought Content: Reflecting on an earlier argument. Cognition: Oriented to person, place, time, questionable to situation. Insight: Poor. Judgment: Poor. Interventions PRN's used: None. Therapeutic interventions: provided 1:1 assessment, therapeutic communication and active listening, medication administration/education/monitoring, encouragement to attend groups, behavior monitoring and intervention as needed; verbal de-escalation, limit setting, Q 15 minute safety checks. Restraints/seclusion/emergency medication: N/A Justification of Continued Inpatient Treatment: Patient is LPS conserved and requires a safe and therapeutic environment until appropriate placement found. Addendum: 07/17/20 at 0108 by Lloyd Ocampo RN The report was received from MARTINA Forrest, not Veronica Jones RN as reported.
[2020-07-17 07:00] VITALS: BP 108/72
[2020-07-17] MEDS: pantoprazole 40mg Tablet.DR PO SCH (07:21)
[2020-07-17] MEDS: divalproex sod 250mg ER (24-hour) tablet PO SCH ×2 (07:21→20:19)
[2020-07-17] MEDS: haloperidol 5mg tablet PO SCH ×3 (07:21→20:20)
[2020-07-17] MEDS: LORazepam 0.5 MG tablet PO SCH ×2 (07:21→20:21)
[2020-07-17] MEDS: trihexyphenidyl HCL 5 MG tablet PO SCH ×3 (07:21→20:19)
[2020-07-17] MEDS: acetaminophen 325mg tablet PO PRN ×3 (07:25→17:01)
--- NOTE | 2020-07-17 16:34 | NUR ---
NURSING PROGRESS NOTE Legal hold: LPS Report received from MARTINA Lamb with use of SBAR Why are they here: Pt decompensated at board and care; increasingly agitated with bizarre, paranoid and delusional statements. Access center assessed and brought to ED for evaluation and stabilization. Assessment What happened this shift: Received pt sleeping at shift change. Patient likes to take his medications early, and Tylenol was added to a.m. meds for right shoulder pain, with good effect. Patient is not instigating any fights today with other patients. Patient has been compliant with treatment and has been cooperative with peers. S/I, H/I: Pt denies A/VH: +A/H Sleep: 10 hrs NOC, napped. ADL's: Independent. Group attendance: N/A Were Meds taken: Yes Any med S/E: None noted or reported. Mental Status Exam Appearance: Well groomed in lama suit. Eye contact: Good Behavior: Calm and cooperative. Speech: Increased volume, WNL. Mood: Euthymic. Affect: Blunted. Thought process: Circumstantial, delusional. Thought Content: Socializing with peers. Discharge. Cognition: A/O X 3 Insight: Poor Judgment: Poor. Interventions PRN's used: Tylenol 650 mg x2 Therapeutic interventions: provided 1:1 assessment, therapeutic communication and active listening, medication administration/education/monitoring, encouragement to attend groups, behavior monitoring and intervention as needed; limit setting, Q 15 minute safety checks. Restraints/seclusion/emergency medication: N/A Justification of Continued Inpatient Treatment: Patient is LPS conserved and requires a safe and therapeutic environment until appropriate placement found.
[2020-07-17 20:00] VITALS: BP 117/71
[2020-07-17] MEDS: quetiapine 100mg tablet PO SCH (20:19)
--- NOTE | 2020-07-18 01:07 | NUR ---
NURSING PROGRESS NOTE Legal hold: LPS Report received from MARTINA Forrest with use of SBAR Why are they here: Pt decompensated at board and care; increasingly agitated with bizarre, paranoid and delusional statements. Access center assessed and brought to ED for evaluation and stabilization. Assessment What happened this shift: Patient was in his room at shift change lying in bed. He stated during interview that he has been a little irritable lately due to shoulder pain but feels better after taking Tylenol. He was polite and pleasant with staff this shift and med compliant. S/I, H/I: Pt denies A/VH: +A/H Sleep: 10 hrs NOC, napped. ADL's: Independent. Group attendance: N/A Were Meds taken: Yes Any med S/E: None noted or reported. Mental Status Exam Appearance: Well groomed in lama suit. Eye contact: Good Behavior: Calm and cooperative. Speech: Increased volume, WNL. Mood: Euthymic. Affect: Blunted. Thought process: Circumstantial, delusional. Thought Content: Socializing with peers. Discharge. Cognition: A/O X 3 Insight: Poor Judgment: Poor. Interventions PRN's used: Tylenol 650 mg x2 Therapeutic interventions: provided 1:1 assessment, therapeutic communication and active listening, medication administration/education/monitoring, encouragement to attend groups, behavior monitoring and intervention as needed; limit setting, Q 15 minute safety checks. Restraints/seclusion/emergency medication: N/A Justification of Continued Inpatient Treatment: Patient is LPS conserved and requires a safe and therapeutic environment until appropriate placement found.
[2020-07-18] MEDS: LORazepam 1 MG tablet PO PRN (05:41)
[2020-07-18] MEDS: haloperidol 5mg tablet PO SCH ×3 (07:28→20:15)
[2020-07-18] MEDS: pantoprazole 40mg Tablet.DR PO SCH (07:28)
[2020-07-18] MEDS: LORazepam 0.5 MG tablet PO SCH ×2 (07:29→20:16)
[2020-07-18] MEDS: trihexyphenidyl HCL 5 MG tablet PO SCH ×3 (07:29→20:17)
[2020-07-18] MEDS: divalproex sod 250mg ER (24-hour) tablet PO SCH ×2 (07:29→20:16)
[2020-07-18 08:00] VITALS: BP 119/76
[2020-07-18] MEDS: acetaminophen 325mg tablet PO PRN ×2 (08:15→12:18)
--- NOTE | 2020-07-18 09:16 | NUR ---
Reassessment: Pt PO 75-100% avg regular diet meeting needs. Noted bed scaled wt 07/14 90kg up from 67kg; pt wt hx prior admits ~85kg so new wt likely most accurate. LBM 07/15. No nutrition concerns at this time. Will continue to monitor. Recommend: 1. continue regular diet 2. routine bowel care 3. wt per rx Addendum: 07/18/20 at [address] Miguel [address] Amended: Links added.
--- NOTE | 2020-07-18 10:00 | NUR ---
Group Therapy: Process Group This Clinicians goal for this process group were as follows: (1) Ask scaling questions about Patients current anxiety, depression, and irritability symptoms as a check-in. (2) Provide psychoeducation on emotional and situational stressors. (3) Discuss thoughts and feelings that patients experience when they have experienced an emotional and/or situational stressor. (4) Provide psychoeducation on interventions, as actions patients can take to reduce feelings of emotional escalation caused by situational and emotional stressors. (5) Process Patients thoughts and reflections on this topic within the group milieu. Patient presented as properly oriented x4 during the process group. Patient was dressed in nondescript, personal clothing that were appropriate within the milieu. He wore a smallwood suit jacket over a dark shirt, with smallwood pants. Psychomotor activity was unremarkable. Patient did leave the milieu on occasion--sometimes being gone for around ten minutes before returning to group. Patient's thought content was clear, and concrete. Patient's thought process varied between being clear, coherent, and linear to being marked by delusional and tangential thinking, and flight of ideas. This Clinician did not observe Patient responding to any internal stimuli during session. The rate, latency, and tone of Client's speech was within normal limits. Patient sustained regular eye contact with this Clinician. Patient presented in calm euthymic mood, with congruent affect during the process group. Patient presented as open and cooperative, and was verbally engaged and nonobtrusive within the group milieu. He was not present at the beginning of the process group, hence he did not provide answers to scaling questions about his levels of depression, anxiety, and irritability. Patient reported that breathing was an intervention that he frequently attempted to use to reduce unwanted levels of emotional escalation, after experiencing a stressful or triggering thought or situation. Angelo Marks MA, MACHINE LONG GOODS HELPER Addendum: 07/19/20 at 0813 by Angelo Marks Amended: Links added.
--- NOTE | 2020-07-18 14:40 | NUR ---
NURSING PROGRESS NOTE Legal hold: LPS Report received from MARTINA Lamb with use of SBAR Why are they here: Pt decompensated at board and care; increasingly agitated with bizarre, paranoid and delusional statements. Access center assessed and brought to ED for evaluation and stabilization. Assessment What happened this shift: Patient up at change of shift. Patient was cooperative and pleasant today. Patient c/o right shoulder pain and given Tylenol. Patient speaking to student services rep and said patient was changing into an informant. Patient is pleasantly psychotic today. Patient denies suicidal/homicidal ideation. Patient denies audio/visual hallucinations. Patient pending IMD placement. S/I, H/I: Pt denies A/VH: Denies Sleep: No naps today ADL's: Independent. Group attendance: N/A Were Meds taken: Yes Any med S/E: None noted or reported. Mental Status Exam Appearance: Well groomed in lama suit. Eye contact: Good Behavior: Calm and cooperative. Speech: Normal Mood: Euthymic. Affect: Flat Thought process: Circumstantial, delusional. Thought Content: Socializing with peers. Discharge. Cognition: A/O X 3 Insight: Poor Judgment: Poor. Interventions PRN's used: Tylenol 650 mg x2 Therapeutic interventions: provided 1:1 assessment, therapeutic communication and active listening, medication administration/education/monitoring, encouragement to attend groups, behavior monitoring and intervention as needed; limit setting, Q 15 minute safety checks. Restraints/seclusion/emergency medication: N/A Justification of Continued Inpatient Treatment: Patient is LPS conserved and requires a safe and therapeutic environment until appropriate placement found.
[2020-07-18 20:05] VITALS: BP 105/67
[2020-07-18] MEDS: quetiapine 100mg tablet PO SCH (20:16)
--- NOTE | 2020-07-19 00:28 | NUR ---
NURSING PROGRESS NOTE Legal hold: LPS Report received from MARTINA Forrest with use of SBAR Why are they here: Pt decompensated at board and care; increasingly agitated with bizarre, paranoid and delusional statements. Access center assessed and brought to ED for evaluation and stabilization. Assessment What happened this shift: Patient was up at change of shift social with staff and peers. Pt laughed and joked with this newspaper writer about places he has been. and talked about going to a new placement soon. He is med compliant and cooperative. S/I, H/I: Pt denies A/VH: Denies Sleep: No naps today ADL's: Independent. Group attendance: N/A Were Meds taken: Yes Any med S/E: None noted or reported. Mental Status Exam Appearance: Well groomed in lama suit. Eye contact: Good Behavior: Calm and cooperative. Speech: Normal Mood: Euthymic. Affect: Flat Thought process: Circumstantial, delusional. Thought Content: Socializing with peers. Discharge. Cognition: A/O X 3 Insight: Poor Judgment: Poor. Interventions PRN's used: none Therapeutic interventions: provided 1:1 assessment, therapeutic communication and active listening, medication administration/education/monitoring, encouragement to attend groups, behavior monitoring and intervention as needed; limit setting, Q 15 minute safety checks. Restraints/seclusion/emergency medication: N/A Justification of Continued Inpatient Treatment: Patient is LPS conserved and requires a safe and therapeutic environment until appropriate placement found.
[2020-07-19] MEDS: acetaminophen 325mg tablet PO PRN ×2 (06:16→12:36)
[2020-07-19] MEDS: divalproex sod 250mg ER (24-hour) tablet PO SCH ×2 (07:37→20:10)
[2020-07-19] MEDS: haloperidol 5mg tablet PO SCH ×3 (07:37→20:10)
[2020-07-19] MEDS: LORazepam 0.5 MG tablet PO SCH ×2 (07:37→20:10)
[2020-07-19] MEDS: trihexyphenidyl HCL 5 MG tablet PO SCH ×3 (07:37→20:10)
[2020-07-19] MEDS: pantoprazole 40mg Tablet.DR PO SCH (07:37)
[2020-07-19 08:00] VITALS: BP 115/81
--- NOTE | 2020-07-19 10:00 | NUR ---
Group Therapy: Process Group This Clinicians goals for this process group were as follows: (1) Ask scaling questions about Patients current anxiety, depression, and irritability symptoms as a check-in. (2) Share with Patients psychoeducation about the importance of being able to identify safe, and supportive people who can assist them with their mental and emotional needs. (3) Share psychoeducation on interpersonal boundaries and considerations to assist Patients in developing the ability to discern which groups and individuals will be helpful in assisting them during times of emotional escalation and crisis. (4) Engage Patients in discussion of the topics discussed within the group milieu. Patient identified experiencing the following levels of anxiety, depression, and anger/irritability while present in the group milieu. Anxiety: 02/01 Depression: 04/03 Anger/irritability: 06/03 Patient presented as properly oriented to person, place, and situation during the process group. Patient was dressed in nondescript, personal clothing that were appropriate within the milieu. He wore a blue [employer] baseball hat, with a dark smallwood suit jacket over a purple shirt, with smallwood slacks. Psychomotor activity was unremarkable. Patient's thought content was clear and concrete, but was marked by occasional delusional thinking, which--per this Clinician's impression of Patient's general presentation during process groups--appears to be his baseline. Patient's thought process varied widely between being clear, coherent, and linear, to being marked by substantial flight of ideas, and tangential thinking. Several times during today's process group this Clinician either didn't pursue Patient's comments, or he acknowledged that Patient had spoken and redirect the process group back to the topic at hand because Patient's comments were either grossly off-topic or were inappropriate. This Clinician did not observe Patient responding to any internal stimuli during session. The rate, latency, and tone of Client's speech was within normal limits. Patient sustained regular eye contact with this Clinician. Patient presented in calm euthymic mood, with congruent affect during the process group. Patient presented as open and cooperative, was verbally engaged, and was only mildly intrusive within the group milieu. This Clinician observed other patients smiling at, or laughing at some of Patient's comments that were more marked by delusional thinking, or thoughts that were grossly off topic; however, these behaviors did not create any disruptions to the flow of the process group. Upon initial check-in, Patient reported that his anger/irritability was at a 7/10. This Clinician noted that that was a high number and asked Patient what was, "Going on." Patient pointed to another patient who was in the room who was quietly, and nonobtrusively assembling a jigsaw puzzle in the room and mentioned that he had an issue or problem with him. This Clinician did not pursue this, and Patient did not direct any negativity or hostility toward this patient during the process group. Patient acknowledged that he would not share, "Anything," about his mental health situation with a stranger or an antagonist. One idiosyncratic statement Patient uttered, in the context of what he would share about his mental health situation with a close family member or friend was, "I'd tell them that I wouldn't murder you." This Clinician stated, "I'd like to think you wouldn't murder anybody," to which Client responded, "That's what the question asked." This Clinician did not perceive that there was any imminent threat to any identifiable victim to which Patient was referring within the safety and confines of the medical milieu. Angelo Marks MA, SOURCING MANAGER Addendum: 07/19/20 at 1155 by Angelo Marks Amended: Links added.
--- NOTE | 2020-07-19 17:41 | NUR ---
NURSING PROGRESS NOTE Legal hold: LPS Report received from MARTINA Lamb with use of SBAR Why are they here: Pt decompensated at board and care; increasingly agitated with bizarre, paranoid and delusional statements. Access center assessed and brought to ED for evaluation and stabilization. Assessment What happened this shift: Patient up at change of shift. Patient was cooperative and pleasant in the morning. Patient c/o right shoulder pain and given Tylenol x 2. Patient sitting with RN and telling her he created Instagram. He said the people at his IMD were so jealous and fighting over it, he got kicked out of the IMD. Patient was agitated in the afternoon. Patient was sitting in a chair in front of his window yelling at nobody. RN asked patient if he wants Seroquel of Ativan for his agitation. Patient stated he wouldn't take either. "You're not a doctor! What do you know!" Patient stood up (in his room by the chair) and started walking towards RN..."What do you want? A purse?!" Patient also agitated the patient down the phillips by bowing to him (mocking him). That threw the other patient into a yelling temper tantrum for about an hour. Patient denies suicidal/homicidal ideation. Patient denies audio/visual hallucinations. Patient pending IMD placement. S/I, H/I: Pt denies A/VH: Denies Sleep: No naps today ADL's: Independent. Group attendance: N/A Were Meds taken: Yes Any med S/E: None noted or reported. Mental Status Exam Appearance: Well groomed in lama suit, purple shirt. Eye contact: Good Behavior: Calm and cooperative. Speech: Normal, pressured at times and loud Mood: Labile Affect: Flat Thought process: Circumstantial, delusional. Thought Content: Socializing with peers. Being offended. Cognition: A/O X 3 Insight: Poor Judgment: Poor. Interventions PRN's used: Tylenol 650 mg x2 Therapeutic interventions: provided 1:1 assessment, therapeutic communication and active listening, medication administration/education/monitoring, encouragement to attend groups, behavior monitoring and intervention as needed; limit setting, Q 15 minute safety checks. Restraints/seclusion/emergency medication: N/A Justification of Continued Inpatient Treatment: Patient is LPS conserved and requires a safe and therapeutic environment until appropriate placement found.
[2020-07-19 19:32] VITALS: BP 132/89
[2020-07-19] MEDS: quetiapine 100mg tablet PO SCH ×2 (20:10→21:09)
--- NOTE | 2020-07-19 22:08 | NUR ---
NURSING PROGRESS NOTE Legal hold: LPS Report received from Lon COE with use of SBAR Why are they here: Pt decompensated at board and care; increasingly agitated with bizarre, paranoid and delusional statements. Access center assessed and brought to ED for evaluation and stabilization. Assessment What happened this shift: Pt was calm and pleasant, smiling while walking in the phillips at change of shift. Pt denies s/i, denies a/vh, continues to have delusions, and is easily agitated during snack time about his place in line, but is able to calm himself. Pt asked to have two Seroquel tonight because he doesn't like to wake up early "because then I wake up my roommate." Asked pt to try to sleep after taking his seroquel but he decided to stay up and watch tv before asking for a second seroquel S/I, H/I: Pt denies A/VH: Denies Sleep: No naps today ADL's: Independent. Group attendance: N/A Were Meds taken: Yes Any med S/E: None noted or reported. Mental Status Exam Appearance: Well groomed in lama suit, purple shirt. Eye contact: Good Behavior: Calm and cooperative. Speech: Normal, pressured at times and loud Mood: Labile Affect: Flat Thought process: Circumstantial, delusional. Thought Content: Socializing with peers Cognition: A/O X 3 Insight: Poor Judgment: Poor. Interventions PRN's used: seroquel Therapeutic interventions: provided 1:1 assessment, therapeutic communication and active listening, medication administration/education/monitoring, encouragement to attend groups, behavior monitoring and intervention as needed; limit setting, Q 15 minute safety checks. Restraints/seclusion/emergency medication: N/A Justification of Continued Inpatient Treatment: Patient is LPS conserved and requires a safe and therapeutic environment until appropriate placement found.
[2020-07-20] MEDS: trihexyphenidyl HCL 5 MG tablet PO SCH ×3 (07:38→19:57)
[2020-07-20] MEDS: LORazepam 0.5 MG tablet PO SCH ×2 (07:38→19:54)
[2020-07-20] MEDS: haloperidol 5mg tablet PO SCH ×3 (07:38→19:56)
[2020-07-20] MEDS: pantoprazole 40mg Tablet.DR PO SCH (07:39)
[2020-07-20] MEDS: divalproex sod 250mg ER (24-hour) tablet PO SCH ×2 (07:39→19:55)
[2020-07-20 07:44] VITALS: BP 128/79
--- NOTE | 2020-07-20 10:00 | NUR ---
Group Therapy: Process Group This Clinicians goals for this process group were as follows: (1) Ask scaling questions about Patients current anxiety, depression, and irritability symptoms as a check-in. (2) Share psychoeducation about automatic thoughts and cognitive distortions. (3) Share psychoeducation on CBT thought-stopping and, thought-reframing. (4) Discuss strategies for identifying negative, unhelpful, and/or irrational thoughts as quickly as possible to avoid unwanted escalation of mental health symptoms. (5) Process Clients thoughts and reflections on this topic within the group milieu. Patient identified experiencing the following levels of anxiety, depression, and anger/irritability while present in the group milieu. Anxiety: 0/10 Depression: 3/10 Anger/irritability: 0/10 Patient presented as properly oriented to person, place, and situation during the process group. Patient was dressed in nondescript, personal clothing that were appropriate within the milieu. He wore a dark lama suit jacket, over a dark shirt, with smallwood dress pants. He wore beige non-slip socks and had a pair of smallwood socks underneath the non-slip ones. Psychomotor activity was unremarkable. Patient's thought content was clear, and concrete. Patient's thought process varied between being clear, coherent, and linear to being marked by flight of ideas, and some tangential thinking. Per this Clinician's impression, Patient's thought process was considerably more clear, coherent, and linear than it had been in recent progress group this week. This Clinician did not observe Patient responding to any internal stimuli during session. The rate, latency, and tone of Client's speech was within normal limits. Patient sustained regular eye contact with this Clinician. Patient presented in calm euthymic mood, with blunted affect during the process group. Patient presented as open and cooperative, and was verbally engaged and nonobtrusive within the group milieu. Patient's comments varied widely in their level of appropriateness within the group milieu. Near the beginning of the process group this Clinician asked patients to identify a time in the past where they had engaged in, "Unhelpful thinking," to which Patient responded, "I killed a puppy." At other times, however, Patient appeared to demonstrate clear understanding about how having a positive, balanced and helpful way of thinking about situations could make one feel less, "Depressed," in a manner that this Clinician found to be very insightful on patient's behalf. Patient was able through his comments to offer a good understanding of the importance of engaging in CBT thought-stopping and reframing activities to reduce the intensity, duration, and frequency of unwanted mental health symptoms. Angelo Marks MA, TAILOR'S AIDE Addendum: 07/20/20 at 1155 by Angelo Marks SS Amended: Links added.
[2020-07-20] MEDS: LORazepam 1 MG tablet PO PRN (16:26)
--- NOTE | 2020-07-20 16:28 | NUR ---
NURSING PROGRESS NOTE Legal hold: LPS Report received from MARTINA Fihs with use of SBAR Why are they here: Pt decompensated at board and care; increasingly agitated with bizarre, paranoid and delusional statements. Access center assessed and brought to ED for evaluation and stabilization. Assessment What happened this shift: Patient up at change of shift. Patient was cooperative and pleasant in the morning. Patient c/o right shoulder pain and given Tylenol x 1. Patient had a much better day today and was not agitated. Patient stated he slept well after getting Seroquel last night and didn't get up one time. Patient was seen sitting in his chair facing the window and having conversations. Patient has been much less visible this shift. Patient watching television in group room and then goes back to his room. Patient has not agitated other patients as of this writing. RN gave patient Ativan x 1 for some anxiety in the late afternoon. S/I, H/I: Pt denies A/VH: Denies Sleep: No naps today ADL's: Independent. Group attendance: N/A Were Meds taken: Yes Any med S/E: None noted or reported. Mental Status Exam Appearance: Neatly dressed in lama suit and button up blue shirt. Hair and holcomb need a trim. Eye contact: Good Behavior: Calm and cooperative. Speech: Normal, loud at times Mood: Pleasant, Anxious at times Affect: Flat Thought process: Circumstantial, delusional. Thought Content: Socializing with peers. Cognition: A/O X 3 Insight: Poor Judgment: Poor. Interventions PRN's used: Tylenol 650 mg x1. Ativan x 1. Therapeutic interventions: provided 1:1 assessment, therapeutic communication and active listening, medication administration/education/monitoring, encouragement to attend groups, behavior monitoring and intervention as needed; limit setting, Q 15 minute safety checks. Restraints/seclusion/emergency medication: N/A Justification of Continued Inpatient Treatment: Patient is LPS conserved and requires a safe and therapeutic environment until appropriate placement found.
[2020-07-20] MEDS: quetiapine 100mg tablet PO PRN (19:58)
[2020-07-20 21:53] VITALS: BP 116/74
--- NOTE | 2020-07-21 01:02 | NUR ---
Nursing Progress Note: Legal hold: LPS Client on involuntary status for GD Report received from Vinod RN with use of SBAR. Why are they here: Pt decompensated at board and care; increasingly agitated with bizarre, paranoid and delusional statements. Access center assessed and brought to ED for evaluation and stabilization. Assessment What has happened this shift: Pt is upbeat this shift and is social out on the unit at shift change. He eats snack with his peers happily while watching TV. Pt makes good eye contact and takes his HS medications without issue. His speech is loud , clear, and direct. Pt requests PRN Seroquel 100 mg po which is given to him. Pt is cooperative with 1:1 assessment. He denies SI/HI/AH/VH. S/I, H/I: Pt denies A/VH: denies at this time, but appears to be internally preoccupied at times Sleep: see sleep assessment notation ADL's: Independent. Group attendance: yes Were meds taken: Yes Any med S/E: None noted or reported Mental Status Exam Appearance: neat, clean Eye contact: Good Behavior: Paces the unit, socializes Speech: Speaks in a slow drawl, clear, audible, loud at times. Mood: upbeat Affect: Pleasant, congruent with mood Thought process: Delusional Thought Content: circumstantial Cognition: A/O X 3, disoriented to situation. Insight: Poor Judgment: Poor Interventions PRN's used: Seroquel 100mg Therapeutic interventions: 1:1 assessment,provided clear and simple instructions, active listening, therapeutic conversation, medication administration/education/monitoring, behavior monitoring and intervention; reality orientation, limit setting, verbal de-escalation, redirection, positive reinforcement, Q 15 minute safety checks. Restraints/seclusion/emergency medication: N/A Justification of Continued Inpatient Treatment: Patient needs interruption of current crisis with adjustment of medication in a safe and therapeutic environment.
[2020-07-21] MEDS: trihexyphenidyl HCL 5 MG tablet PO SCH ×3 (07:30→20:33)
[2020-07-21] MEDS: LORazepam 0.5 MG tablet PO SCH ×2 (07:30→20:33)
[2020-07-21] MEDS: divalproex sod 250mg ER (24-hour) tablet PO SCH ×2 (07:30→20:31)
[2020-07-21] MEDS: acetaminophen 325mg tablet PO PRN ×2 (07:30→12:11)
[2020-07-21] MEDS: haloperidol 5mg tablet PO SCH ×3 (07:31→20:32)
[2020-07-21] MEDS: pantoprazole 40mg Tablet.DR PO SCH (07:31)
[2020-07-21 07:42] VITALS: BP 110/58
[2020-07-21] MEDS ORDERED: LORazepam 2 mg/ml vial ONE (09:27)
--- NOTE | 2020-07-21 10:00 | NUR ---
Group Therapy: Process Group This Clinicians goals for this process group were as follows: (1) Ask scaling questions about Patients current anxiety, depression, and irritability symptoms as a check-in. (2) Share psychoeducation about self-efficacy, and ego strength. (3) Provide psychoeducation on [employer] Drama triangleVictim, Persecutor, Rescuer dynamic. (4) Share psychoeducation on developing positive ego strengthpositive affirmations, positive self-talk, transitioning from a victim of circumstances to a survivor of circumstances. (5) Process Clients thoughts and reflections on this topic within the group milieu. Patient identified experiencing the following levels of anxiety, depression, and anger/irritability while present in the group milieu. Anxiety: 08/04 Depression: 10 Anger/irritability: 10 Patient presented as properly oriented to person, place, and situation during the process group. Patient was dressed in nondescript, personal clothing that were appropriate within the milieu. He wore a blue [employer] cap, a smallwood suit jacket over a dark shirt, and smallwood pants. Psychomotor activity was unremarkable. Patient left the process group on a couple of different occasions--sometimes being gone for upwards of ten minutes before returning. Upon his return, he quietly sat in the back of the group room and was not disruptive within the milieu. Patient's thought content was clear, and concrete. Patient's thought process was clear, coherent, and linear, though he did not contribute much during today's conversation. This Clinician did not observe Patient responding to any internal stimuli during session. The rate, latency, and tone of Client's speech was within normal limits. Patient maintained intermittent eye contact with this Clinician. Patient presented in calm mood, with blunted affect during the process group. Patient presented as cooperative, verbally subdued and nonobtrusive within the group milieu. Patient endorsed experiencing very high depression and anger/irritability symptoms during today's process group. This Clinician asked Patient what that level of anxiety (9/10) and anger/irritability (10/10) felt like in his body. Patient stated, "I don't feel things in my body." This Clinician observed that Patient's tone of voice jose antonio as he shared that his anger/irritability was a 10/10. During the description of the mindset and characteristics that typify a person who identifies as a, "Victim," in [place]'s drama triangle, Patient uttered this comment in the context of describing a victim. "Anybody can burst your bubble." Patient then stated, "I don't have a bubble." After these comments, Patient was quiet within the milieu. As noted above, he quietly entered and exited the process group quietly throughout the hour-long group. Angelo Marks MA, CLOTH PRINTER HELPER Addendum: 07/21/20 at 1136 by Angelo Marks SS Amended: Links added.
--- NOTE | 2020-07-21 17:20 | NUR ---
NURSING PROGRESS NOTE Legal hold: LPS Report received from MARTINA Fish with use of SBAR Why are they here: Pt decompensated at board and care; increasingly agitated with bizarre, paranoid and delusional statements. Access center assessed and brought to ED for evaluation and stabilization. Assessment What happened this shift: Patient up at change of shift. Patient was cooperative and pleasant in the morning. Patient c/o right shoulder pain and given Tylenol x 1. After breakfast, pt began to get worked up and was yelling in the hallway, this is bullshit! When approached, pt continued to yell at nurse and would not say what was wrong. Pt refused PO Ativan PRN; thus, IM Ativan ordered and pt took willingly and pt advised to remain in his room for a while till he was calm which he did and he had no more episodes remainder of shift. Pt denies depression and suicidal/homicidal thoughts today. S/I, H/I: Pt denies A/VH: Denies Sleep: No naps today ADL's: Independent. Group attendance: N/A Were Meds taken: Yes Any med S/E: None noted or reported. Mental Status Exam Appearance: Neatly dressed in lama suit and button up blue shirt. Hair and holcomb need a trim. Eye contact: Good Behavior: Calm and cooperative. Speech: Normal, loud at times Mood: Pleasant, Anxious at times Affect: Flat Thought process: Circumstantial, delusional. Thought Content: Socializing with peers. Cognition: A/O X 3 Insight: Poor Judgment: Poor. Interventions PRN's used: Tylenol 650 mg x2. Ativan IM x 1. Therapeutic interventions: provided 1:1 assessment, therapeutic communication and active listening, medication administration/education/monitoring, encouragement to attend groups, behavior monitoring and intervention as needed; limit setting, Q 15 minute safety checks. Restraints/seclusion/emergency medication: N/A Justification of Continued Inpatient Treatment: Patient is LPS conserved and requires a safe and therapeutic environment until appropriate placement found.
[2020-07-21 19:56] VITALS: BP 120/80
[2020-07-21] MEDS: quetiapine 100mg tablet PO SCH (20:32)
--- NOTE | 2020-07-22 00:55 | NUR ---
Nursing Progress Note: Legal hold: LPS Client on involuntary status for GD Report received from Susanne MACK with use of SBAR. Why are they here: Pt decompensated at board and care; increasingly agitated with bizarre, paranoid and delusional statements. Access center assessed and brought to ED for evaluation and stabilization. Assessment What has happened this shift: Pt approaches staff at shift change inquiring about his discharge date. He then fills out an appeal form pamphlet. 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 Pt remains pleasant while explaining why he should not have to be here. He then asks to watch TV and watches [employer] while eating snack before bed. Denies SI/HI/AH/VH at this time. Pt's Depakote was increased from 750mg to 1,00 mg and the Ativan was increased from 1 mg to 1.5 mg. S/I, H/I: Pt denies A/VH: denies at this time, but appears to be internally preoccupied at times Sleep: see sleep assessment notation ADL's: Independent. Group attendance: yes Were meds taken: Yes Any med S/E: None noted or reported Mental Status Exam Appearance: neat, clean Eye contact: Good Behavior: Paces the unit, socializes Speech: Speaks in a slow drawl, clear, audible, loud at times. Mood: upbeat Affect: Pleasant, congruent with mood Thought process: Delusional Thought Content: circumstantial Cognition: A/O X 3, disoriented to situation. Insight: Poor Judgment: Poor Interventions PRN's used: Seroquel 100mg Therapeutic interventions: 1:1 assessment,provided clear and simple instructions, active listening, therapeutic conversation, medication administration/education/monitoring, behavior monitoring and intervention; reality orientation, limit setting, verbal de-escalation, redirection, positive reinforcement, Q 15 minute safety checks. Restraints/seclusion/emergency medication: N/A Justification of Continued Inpatient Treatment: Patient needs interruption of current crisis with adjustment of medication in a safe and therapeutic environment.
[2020-07-22] MEDS: divalproex sod 250mg ER (24-hour) tablet PO SCH ×2 (07:33→20:13)
[2020-07-22] MEDS: trihexyphenidyl HCL 5 MG tablet PO SCH ×3 (07:33→20:14)
[2020-07-22] MEDS: haloperidol 5mg tablet PO SCH ×3 (07:34→20:14)
[2020-07-22] MEDS: acetaminophen 325mg tablet PO PRN ×2 (07:34→20:54)
[2020-07-22] MEDS: LORazepam 0.5 MG tablet PO SCH ×2 (07:34→20:14)
[2020-07-22] MEDS: pantoprazole 40mg Tablet.DR PO SCH (07:34)
[2020-07-22 07:44] VITALS: BP 109/68
--- NOTE | 2020-07-22 08:37 | NUR ---
PLACEMENT Called [facility] office to inquire if there is a transfer date for Hardik to go to [facility]. Once date is determined he will need a Covid test. Janice reported she will follow up with [facility] and [facility] regarding transfer date as well as if Hardik will need a supply of meds with him or not. LEXIE Squires
--- NOTE | 2020-07-22 13:31 | NUR ---
NURSING PROGRESS NOTE Legal hold: LPS Report received from MARTINA Fish with use of SBAR Why are they here: Pt decompensated at board and care; increasingly agitated with bizarre, paranoid and delusional statements. Access center assessed and brought to ED for evaluation and stabilization. Assessment What happened this shift: Patient up at change of shift. Patient has been more subdued today. Pt is visible on the unit, but has exhibited no agitation this shift; though, his facial expression at times seems irritated. Pt does not interact much with others, usually just with staff when he wants something. Pt denies a/v hallucinations; though, appears internally preoccupied at times. Pt denies depression and suicidal/homicidal thoughts today. S/I, H/I: Pt denies A/VH: Denies Sleep: No naps today ADL's: Independent. Group attendance: N/A Were Meds taken: Yes Any med S/E: None noted or reported. Mental Status Exam Appearance: Neatly dressed in lama suit and button up blue shirt. Hair and holcomb need a trim. Eye contact: Good Behavior: Calm and cooperative. Speech: Normal, loud at times Mood: Pleasant, Anxious at times Affect: Flat Thought process: Circumstantial, delusional. Thought Content: Socializing with peers. Cognition: A/O X 3 Insight: Poor Judgment: Poor. Interventions PRN's used: Tylenol 650 mg x2. Ativan IM x 1. Therapeutic interventions: provided 1:1 assessment, therapeutic communication and active listening, medication administration/education/monitoring, encouragement to attend groups, behavior monitoring and intervention as needed; limit setting, Q 15 minute safety checks. Restraints/seclusion/emergency medication: N/A Justification of Continued Inpatient Treatment: Patient is LPS conserved and requires a safe and therapeutic environment until appropriate placement found.
[2020-07-22 19:28] VITALS: BP 118/84
[2020-07-22] MEDS: quetiapine 100mg tablet PO SCH (20:15)
--- NOTE | 2020-07-22 23:59 | NUR ---
Nursing Progress Note: Legal hold: LPS Client on involuntary status for GD Report received from Susanne MACK with use of SBAR. Why are they here: Pt decompensated at board and care; increasingly agitated with bizarre, paranoid and delusional statements. Access center assessed and brought to ED for evaluation and stabilization. 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 He has a wide smile on his face and makes direct eye contact. He is cooperative and pleasant during 1:1 assessment. He is medication compliant and eats HS snack before going to sleep. He denies SI/HI/AH/VH. PT requests PRN Tylenol for shoulder pain, which is given to him. S/I, H/I: Pt denies A/VH: denies at this time Sleep: see sleep assessment notation ADL's: Independent. Group attendance: yes Were meds taken: Yes Any med S/E: None noted or reported Mental Status Exam Appearance: neat, clean Eye contact: Good Behavior: Paces the unit, socializes Speech: Speaks in a slow drawl, clear, audible, loud at times. Mood: upbeat Affect: Pleasant, congruent with mood Thought process: Delusional Thought Content: circumstantial Cognition: A/O X 3, disoriented to situation. Insight: Poor Judgment: Poor Interventions PRN's used: tylenol 650 mg Therapeutic interventions: 1:1 assessment,provided clear and simple instructions, active listening, therapeutic conversation, medication administration/education/monitoring, behavior monitoring and intervention; reality orientation, limit setting, verbal de-escalation, redirection, positive reinforcement, Q 15 minute safety checks. Restraints/seclusion/emergency medication: N/A Justification of Continued Inpatient Treatment: Patient needs interruption of current crisis with adjustment of medication in a safe and therapeutic environment.
[2020-07-23] MEDS: haloperidol 5mg tablet PO SCH ×3 (07:20→20:23)
[2020-07-23] MEDS: trihexyphenidyl HCL 5 MG tablet PO SCH ×3 (07:20→20:28)
[2020-07-23] MEDS: LORazepam 0.5 MG tablet PO SCH ×2 (07:20→20:23)
[2020-07-23] MEDS: pantoprazole 40mg Tablet.DR PO SCH (07:20)
[2020-07-23] MEDS: divalproex sod 250mg ER (24-hour) tablet PO SCH ×2 (07:20→20:23)
[2020-07-23 07:58] VITALS: BP 116/57
[2020-07-23] MEDS: acetaminophen 325mg tablet PO PRN ×2 (09:09→20:39)
[2020-07-23] MEDS: LORazepam 1 MG tablet PO PRN (11:13)
--- NOTE | 2020-07-23 15:36 | NUR ---
Nursing Progress Note: Hanh Legal hold: LPS Client on involuntary status for GD Report received from Lon MACK with use of SBAR. Why are they here: Pt decompensated at board and care; increasingly agitated with bizarre, paranoid and delusional statements. Access center assessed and brought to ED for evaluation and stabilization. Assessment What has happened this shift: Client was in bed to begin the shift and was soon awake and visible on the unit. Client is pleasant and was cordial with this resume writer for assessment and medications. Client was social on the unit in the morning and visited with staff for an extended period of time. He has had no behavioral challenges as of this writing at 1030 hours. Client asked for and received Ativan for agitation and Tylenol for pain this am and both had a good effect. This client has been very visible and social on the unit and behaviors have been very appropriate. Client has spent the afternoon socializing in group room with select peers. S/I, H/I: Pt denies A/VH: denies at this time Sleep: see sleep assessment notation ADL's: Independent. Group attendance: not today Were meds taken: Yes Any med S/E: None noted or reported Mental Status Exam Appearance: neat, clean Eye contact: Good Behavior: Paces the unit, socializes Speech: Speaks in a slow drawl, clear, audible, loud at times. Mood: upbeat Affect: Pleasant, congruent with mood Thought process: Delusional Thought Content: circumstantial Cognition: A/O X 3, disoriented to situation. Insight: Poor Judgment: Poor Interventions PRN's used: Tylenol 650 mg Therapeutic interventions: 1:1 assessment,provided clear and simple instructions, active listening, therapeutic conversation, medication administration/education/monitoring, behavior monitoring and intervention; reality orientation, limit setting, verbal de-escalation, redirection, positive reinforcement, Q 15 minute safety checks. Restraints/seclusion/emergency medication: N/A Justification of Continued Inpatient Treatment: Patient needs interruption of current crisis with adjustment of medication in a safe and therapeutic environment.
[2020-07-23 19:00] VITALS: BP 122/78
[2020-07-23] MEDS: quetiapine 100mg tablet PO SCH (20:23)
--- NOTE | 2020-07-24 03:25 | NUR ---
Nursing Progress Note: Hardik Schafer Legal hold: LPS Client on involuntary status for GD Report received from MARTINA Skinner with use of SBAR. Why are they here: Pt decompensated at board and care; increasingly agitated with bizarre, paranoid and delusional statements. Access center assessed and brought to ED for evaluation and stabilization. Assessment What has happened this shift: Patient socialized on the unit with others then retired to his room to sleep. Patient is well oriented and cooperative. Patient is medication compliant. Patient denies S/I, H/I, or any hallucinations. Mild anxiety, no PRN's required. S/I, H/I: Pt denies A/VH: Denies at this time Sleep: Sleeping well, will tally in am. ADL's: Independent. 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 Were meds taken: Yes, medication compliant. Any med S/E: None noted or reported. Mental Status Exam Appearance: Neat, clean. Eye contact: Good. Behavior: Paces the unit, socializes. Speech: Speaks in a quiet voice, normal rate rhythm, and tone. Mood: Friendly. Affect: Pleasant, Congruent with mood. Thought process: Delusional at times. Thought Content: Circumstantial. Cognition: A/O X 3, disoriented to situation. Insight: Poor. Judgment: Poor. Interventions PRN's used: None. Therapeutic interventions: 1:1 assessment,provided clear and simple instructions, active listening, therapeutic conversation, medication administration/education/monitoring, behavior monitoring and intervention; reality orientation, limit setting, verbal de-escalation, redirection, positive reinforcement, Q 15 minute safety checks. Restraints/seclusion/emergency medication: N/A Justification of Continued Inpatient Treatment: Patient needs interruption of current crisis with adjustment of medication in a safe and therapeutic environment.
[2020-07-24] MEDS: divalproex sod 250mg ER (24-hour) tablet PO SCH ×2 (07:32→20:14)
[2020-07-24] MEDS: LORazepam 0.5 MG tablet PO SCH ×2 (07:33→20:13)
[2020-07-24] MEDS: trihexyphenidyl HCL 5 MG tablet PO SCH ×3 (07:33→20:12)
[2020-07-24] MEDS: haloperidol 5mg tablet PO SCH ×3 (07:33→20:12)
[2020-07-24] MEDS: pantoprazole 40mg Tablet.DR PO SCH (07:33)
[2020-07-24] MEDS: acetaminophen 325mg tablet PO PRN ×3 (07:34→20:11)
[2020-07-24 07:55] VITALS: BP 122/76
--- NOTE | 2020-07-24 14:09 | NUR ---
Nursing Progress Note: Legal hold: LPS Report received from Veronica Jones RN with use of SBAR. Why are they here: Pt decompensated at board and care; increasingly agitated with bizarre, paranoid and delusional statements. Access center assessed and brought to ED for evaluation and stabilization. Assessment What happened this shift: Received pt. sitting up in chair at bedside at the beginning of the shift, he greeted this editorial writer appropriately. 1:1 completed at bedside, pt. denies all MH s/s, and no delusional statements made. When this editorial writer questions pt. regarding his new room location and having a new roommate he states, "I got a little paranoid last night, so I got up and watched TV, and then I went back to bed." This editorial writer encouraged pt. to notify staff if he begins feeling this way again today, and he reported understanding however stated, "It's kind of childish." Pt. intermittently isolates in his room or is observed on the unit interacting minimally, however appropriately with peers throughout the day. No agitated outbursts are observed. S/I, H/I: Denies A/VH: Denies, however appears to be internally preoccupied at times AEB talking to himself Sleep: Pt reports he slept well, sleep hours are 6.5 ADL's: Independent. Group attendance: N/A Were meds taken: Yes Any med S/E: None Mental Status Exam Appearance: Neat and appropriately dressed Eye contact: Good Behavior: Cooperative, guarded, and withdrawn Speech: Articulate with a slow drawl. Mood: Pleasant, however continues to be guarded Affect: Blunted with animation Thought process: Disorganized Thought Content: Occasional A/GATES Cognition: A&O X4 Insight: Poor Judgment: Fair Interventions PRN's used: None Therapeutic interventions: Maintained a safe and therapeutic environment, ensured contract for safety, provided clear and simple instructions, attempted to orient to reality, provided direction and positive reassurance as needed, monitored behaviors and need for intervention, encouraged pt. to notify staff if feeling paranoid/anxious, and maintained Q 15min safety checks. Restraints/seclusion/emergency medication: N/A Justification of Continued Inpatient Treatment: Patient is LPS conserved and requires a safe and therapeutic environment until appropriate placement found. DIOGENES Yo, pt. is at baseline.
[2020-07-24 20:00] VITALS: BP 106/65
[2020-07-24] MEDS: quetiapine 100mg tablet PO SCH (20:13)
--- NOTE | 2020-07-24 23:10 | NUR ---
Nursing Progress Note: Legal hold: LPS Report received from MARTINA Skinner with use of SBAR. Why are they here: Pt decompensated at board and care; increasingly agitated with bizarre, paranoid and delusional statements. Access center assessed and brought to ED for evaluation and stabilization. Assessment What happened this shift: Patient was in his room at shift change lying in bed. He got up for snack and ate in group room with peers. He asked for Tylenol for shoulder pain that was effective. Pt stated that he thinks he will go to his placement soon, S/I, H/I: Denies A/VH: Denies, however appears to be internally preoccupied at times AEB talking to himself Sleep: Pt reports he slept well, sleep hours are 6.5 ADL's: Independent. Group attendance: N/A Were meds taken: Yes Any med S/E: None Mental Status Exam Appearance: Neat and appropriately dressed Eye contact: Good Behavior: Cooperative, guarded, and withdrawn Speech: Articulate with a slow drawl. Mood: Pleasant, however continues to be guarded Affect: Blunted with animation Thought process: Disorganized Thought Content: Occasional A/GATES Cognition: A&O X4 Insight: Poor Judgment: Fair Interventions PRN's used: Tylenol Therapeutic interventions: Maintained a safe and therapeutic environment, ensured contract for safety, provided clear and simple instructions, attempted to orient to reality, provided direction and positive reassurance as needed, monitored behaviors and need for intervention, encouraged pt. to notify staff if feeling paranoid/anxious, and maintained Q 15min safety checks. Restraints/seclusion/emergency medication: N/A Justification of Continued Inpatient Treatment: Patient is LPS conserved and requires a safe and therapeutic environment until appropriate placement found. DIOGENES Yo, pt. is at baseline.
[2020-07-25] MEDS: acetaminophen 325mg tablet PO PRN ×3 (05:39→19:07)
[2020-07-25] MEDS: haloperidol 5mg tablet PO SCH ×3 (07:40→20:08)
[2020-07-25] MEDS: trihexyphenidyl HCL 5 MG tablet PO SCH ×3 (07:40→20:09)
[2020-07-25] MEDS: LORazepam 0.5 MG tablet PO SCH ×2 (07:41→20:10)
[2020-07-25] MEDS: pantoprazole 40mg Tablet.DR PO SCH (07:41)
[2020-07-25] MEDS: divalproex sod 250mg ER (24-hour) tablet PO SCH ×2 (07:41→20:08)
[2020-07-25 08:00] VITALS: BP 117/72
--- NOTE | 2020-07-25 09:20 | NUR ---
PLACEMENT UPDATE Hardik has been accepted at [facility] which was expected to open Jul 26. They are not expecting to open Aug 08. We do not have a transfer date yet for Hardik. Informed Hardik of the delay and he appeared to be ok with the news. LEXIE Squires
--- NOTE | 2020-07-25 09:54 | NUR ---
Reassessment: Pt PO 75-100% avg regular diet meeting needs. Noted bed scaled wt 07/14 90kg up from 67kg; pt wt hx prior admits ~85kg so new wt likely most accurate. LBM 07/23. No nutrition concerns at this time. Will continue to monitor. Recommend: 1. continue regular diet 2. routine bowel care 3. wt per rx Addendum: 07/25/20 at [address] Amended: Links added.
[2020-07-25] MEDS: LORazepam 1 MG tablet PO PRN (11:12)
[2020-07-25] MEDS: quetiapine 100mg tablet PO PRN (11:59)
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
[2020-07-25 20:00] VITALS: BP 110/71
[2020-07-25] MEDS: quetiapine 100mg tablet PO SCH (20:09)
[2020-07-25 20:29] VITALS: BP 110/71
--- NOTE | 2020-07-25 23:49 | NUR ---
Nursing Progress Note: Legal hold: LPS Report received from MARTINA Brock with use of SBAR. Why are they here: Pt decompensated at board and care; increasingly agitated with bizarre, paranoid and delusional statements. Access center assessed and brought to ED for evaluation and stabilization. Assessment What happened this shift: Patient was in bed napping at shift change. he got up and paced the unit till snack time and ate in group room then returned to his bed. Pt was a little agitated and pre occupied. He is mad at his room mate thinking he is doing things to upset him. S/I, H/I: Denies A/VH: Denies, however appears to be internally preoccupied at times AEB talking to himself Sleep: Pt reports he slept well, sleep hours are 9.75 ADL's: Requires some direction/redirection Group attendance: N/A Were meds taken: Yes Any med S/E: None Mental Status Exam Appearance: Neat and appropriately dressed Eye contact: Good Behavior: Cooperative, guarded, slightly agitated at times, and withdrawn Speech: Articulate with a slow drawl. Mood: Initially pleasant, became slightly agitated, but was able to be redirected Affect: Labile Thought process: Disorganized Thought Content: Occasional A/GATES Cognition: A&O X4 Insight: Poor Judgment: Fair Interventions PRN's used: none Therapeutic interventions: Maintained a safe and therapeutic environment, ensured contract for safety, provided clear and simple instructions, attempted to orient to reality, provided direction and positive reassurance as needed, monitored behaviors and need for intervention, encouraged pt. to notify staff if feeling agitated/anxious or having a disagreement, and maintained Q 15min safety checks. Restraints/seclusion/emergency medication: N/A Justification of Continued Inpatient Treatment: Patient is LPS conserved and requires a safe and therapeutic environment until appropriate placement found. DIOGENES Yo, pt. is at baseline.
[2020-07-26] MEDS: haloperidol 5mg tablet PO SCH ×3 (07:32→20:18)
[2020-07-26] MEDS: trihexyphenidyl HCL 5 MG tablet PO SCH ×3 (07:32→20:18)
[2020-07-26] MEDS: LORazepam 0.5 MG tablet PO SCH ×2 (07:33→20:17)
[2020-07-26] MEDS: acetaminophen 325mg tablet PO PRN ×2 (07:33→20:48)
[2020-07-26] MEDS: pantoprazole 40mg Tablet.DR PO SCH (07:33)
[2020-07-26] MEDS: divalproex sod 250mg ER (24-hour) tablet PO SCH ×2 (07:33→20:18)
[2020-07-26 08:00] VITALS: BP 143/83
--- NOTE | 2020-07-26 10:00 | NUR ---
Group Therapy: Process Group This Clinicians goals for this process group were as follows: (1) Ask scaling questions about Patients current anxiety, depression, and irritability symptoms as a check-in. (2) Share psychoeducation about the importance of being able to identify regular activities, support people, and thoughts (Anchors) that contribute to mental health well-being and stability. (3) Share psychoeducation about how the gradual removal of said activities, people and behaviors may lead to the erosion of mental well-being and stability. (4) Encourage patients to identify support anchors that they need to maintain in their lives that will promote their mental and emotional well-being. (5) Engage Patients in discussion of the topics shared within the group milieu. Patient identified experiencing the following levels of anxiety, depression, and anger/irritability while present in the group milieu (0-low; 10-High). Anxiety: 5/10 Depression: 8/10 Anger/irritability: 0/10 Patient presented as properly oriented to person, place, and situation during the process group. Patient was dressed in nondescript, personal clothing that were appropriate within the milieu. Patient wore a purple t-shirt with smallwood pants. Psychomotor activity was unremarkable. Patient's thought content was mainly clear, and concrete and marked less by delusional content than it has been on occasion in recent process groups. Patient's thought process was largely clear, coherent, and linear. This Clinician did not observe Patient responding to any internal stimuli during session. The rate, latency, and tone of Client's speech was within normal limits. Patient maintained regular eye contact with this Clinician. Patient presented in calm euthymic mood, with blunted affect during the process group. Patient presented as open and cooperative, and was verbally engaged and nonobtrusive within the group milieu. During the process group on emotional grounding interventions and coping skills that one could utilize in order to maintain optimal/baseline mental health, Patient clearly stated his personal understanding that maintaining proper medication compliance was crucial to him maintaining baseline mental health. Patient brought up the topic of marijuana use as a potential coping skill that people frequently use. In this context, this Clinician provided some psychoeducation on the difference between adaptive and maladaptive coping skills--encouraging the patients within the milieu to focus on incorporating adaptive grounding interventions and coping skills that would not lead to any harm to themselves or others. Angelo Marks MA, COUNTY JUDGE Addendum: 07/27/20 at 0844 by Angelo TILLMAN Amended: Links added.
[2020-07-26] MEDS: LORazepam 1 MG tablet PO PRN (13:35)
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
[2020-07-26] MEDS: quetiapine 100mg tablet PO SCH (20:19)
[2020-07-26] MEDS: quetiapine 100mg tablet PO PRN (20:19)
[2020-07-26 20:45] VITALS: BP 115/78
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
[2020-07-27] MEDS: trihexyphenidyl HCL 5 MG tablet PO SCH ×3 (07:36→20:12)
[2020-07-27] MEDS: haloperidol 5mg tablet PO SCH ×3 (07:36→20:13)
[2020-07-27] MEDS: LORazepam 0.5 MG tablet PO SCH ×2 (07:36→20:12)
[2020-07-27] MEDS: pantoprazole 40mg Tablet.DR PO SCH (07:37)
[2020-07-27] MEDS: divalproex sod 250mg ER (24-hour) tablet PO SCH ×2 (07:37→20:12)
[2020-07-27 08:24] VITALS: BP 127/81
[2020-07-27] MEDS: acetaminophen 325mg tablet PO PRN (12:28)
--- NOTE | 2020-07-27 15:12 | NUR ---
PLACEMENT Faxed updated notes to [facility] office at their request for placement purposes. LEXIE Squires
--- NOTE | 2020-07-27 16:15 | NUR ---
NURSING PROGRESS NOTE Legal hold: LPS Report received from RN with use of SBAR Why are they here: Pt decompensated at board and care; increasingly agitated with bizarre, paranoid and delusional statements. Access center assessed and brought to ED for evaluation and stabilization. Assessment What happened this shift: Received Pt in bed sleeping w/o distress at beginning of shift. Pt cooperated with vitals and assessments and ate meals in community room with others. He c/o ache in his rt shoulder. He took AM meds along with prn tylenol for shoulder ache which was minimally effective. Pt socializing with others on unit but remains vocal about shoulder bothering him. Pt met with MD who has ordered a PT consult. S/I, H/I: Pt denies A/VH: Endorses A/H Sleep: None this shift ADL's: Independent. Group attendance: Yes Were Meds taken: Yes Any med S/E: None noted or reported. Mental Status Exam Appearance: Casual in suit jacket Eye contact: Good Behavior: Pleasant mood, cooperative Speech: Clear, audible Mood: Euthymic Affect: Jovial Thought process: Circumstantial Thought Content: Discharge, shoulder pain Cognition: A/O X 3 Insight: Fair Judgment: Fair Interventions PRN's used: Tylenol 650 mg Therapeutic interventions: provided 1:1 assessment, therapeutic communication and active listening, medication administration/education/monitoring, encouragement to attend groups, behavior monitoring and intervention as needed; verbal de-escalation, limit setting, Q 15 minute safety checks. Restraints/seclusion/emergency medication: N/A Justification of Continued Inpatient Treatment: Patient is LPS conserved and requires a safe and therapeutic environment until appropriate placement found.
[2020-07-27] MEDS: quetiapine 100mg tablet PO SCH (20:12)
[2020-07-27 20:43] VITALS: BP 123/82
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
[2020-07-28] MEDS: LORazepam 1 MG tablet PO PRN (03:01)
[2020-07-28] MEDS: acetaminophen 325mg tablet PO PRN ×3 (03:02→15:48)
[2020-07-28] MEDS: quetiapine 100mg tablet PO SCH ×2 (03:04→20:17)
[2020-07-28 08:00] VITALS: BP 114/71
[2020-07-28] MEDS: divalproex sod 250mg ER (24-hour) tablet PO SCH ×2 (08:42→20:12)
[2020-07-28] MEDS: pantoprazole 40mg Tablet.DR PO SCH (08:42)
[2020-07-28] MEDS: trihexyphenidyl HCL 5 MG tablet PO SCH ×3 (08:43→20:12)
[2020-07-28] MEDS: LORazepam 0.5 MG tablet PO SCH ×2 (08:43→20:11)
[2020-07-28] MEDS: haloperidol 5mg tablet PO SCH ×3 (08:44→20:11)
--- NOTE | 2020-07-28 10:00 | NUR ---
Group Therapy: Process Group This Clinicians goals for this process group were as follows: (1) Ask scaling questions about patients current anxiety, depression, and irritability symptoms as a check-in. (2) Share psychoeducation about emotional relaxation techniques with patients, including information on: mindfulness, meditation controlled breathing, progressive muscle relaxation, guided visualization. (3) Model and practice controlled breathing, progressive muscle relaxation, and guided visualization with patients within the group milieu. (4) Process patients comments and reflections on the before-mentioned activities after they have participated in them. Patient identified experiencing the following levels of anxiety, depression, and anger/irritability while present in the group milieu (0-low; 10-High). Anxiety: 5-6/10 Depression: 0/10 Anger/irritability: 0/10 Patient presented as properly oriented x4 during the process group. Patient was dressed in nondescript, personal clothing that were appropriate within the milieu. Psychomotor activity was unremarkable. Patient's thought content was clear, and concrete. Patient's thought process was mainly clear, coherent, and linear. As the process group was beginning Patient shared with this Clinician that he wanted his Public Guardian to buy him some new shoes. Patient then proceeded to share that he wanted to donate his old shoes to the "[employer]." This Clinician did not observe Patient responding to any internal stimuli during session. The rate, latency, and tone of Patients speech was within normal limits. Patient maintained intermittent eye contact with this Clinician. Patient presented in calm euthymic mood, with blunted affect during the process group. Patient presented as open and cooperative, and was verbally engaged and nonobtrusive within the group milieu. Patient was invited by some of his peers to sit by them at their table where they were coloring mandalas as an emotional grounding activity that this Clinician encouraged them to do as he shared psychoeducation on emotional relaxation techniques. Patient came over to the table and colored on a mandala briefly. He freely shared some of his mental health history with some of his peers, noting that he had experienced chronic mental health issues since he was 21 years-old. Patient left the process group quietly approximately 35 minutes into the process group and did not return. Angelo Marks MA, MASTER YACHT Addendum: 07/29/20 at 0854 by Angelo Marks SS Amended: Links added.
--- NOTE | 2020-07-28 16:57 | NUR ---
NURSING PROGRESS NOTE Legal hold: LPS Report received from nurse with use of SBAR: MARTINA Fish Why are they here: Patient decompensated at board and care; increasingly agitated with bizarre, paranoid and delusional statements. Access center assessed and brought to ED for evaluation and stabilization. Assessment What happened this shift: Received patient in bed sleeping at shift change no distress noted. Patient was awoken for vitals and then again for breakfast. Pt was calm and cooperative. When not sitting in room, pt is observed watching TV or ambulating phillips. Patient c/o of right shoulder pain, Tylenol administered with some effect. Pt talks about wanting to people on unit to get so they will leave him alone. And he told this loan underwriter that Jese Brady, (of [employer]) dates his sister. We are related. Encouraged patient to shower. Pt had PT eval today and tolerated well. No follow up will be needed. No outbursts noted. Pt denies MH symptoms. S/I, H/I: Denies both. A/VH: No voices today. Sleep: 8.5 hrs per Sleep Assessment. ADL's: Independent. Group attendance: No group probably not today. Were Meds taken: Yes, without hesitation. Any med S/E: None noted or reported. Mental Status Exam Appearance: Disheveled, wearing dress suit and baseball cap. Encouraged shower. Eye contact: Good Behavior: Isolates to self, socializes with select peers Speech: Clear, audible, pressured at times. Mood: Euthymic Affect: Congruent with mood Thought process: Circumstantial, delusional Thought Content: Discharge, shoulder pain Cognition: A/O X 3 Insight: Fair Judgment: Fair Interventions PRN's used: Tylenol 650 mg Therapeutic interventions: provided 1:1 assessment, therapeutic communication and active listening, medication administration/education/monitoring, encouragement to attend groups, behavior monitoring and intervention as needed; verbal de-escalation, limit setting, Q 15 minute safety checks. Restraints/seclusion/emergency medication: N/A Justification of Continued Inpatient Treatment: Patient is LPS conserved and requires a safe and therapeutic environment until appropriate placement found.
[2020-07-28] MEDS: traMADol 50MG tablet PO PRN (17:18)
[2020-07-28 19:00] VITALS: BP 114/87
--- NOTE | 2020-07-29 03:05 | NUR ---
NURSING PROGRESS NOTE: Hardik Schafer Legal hold: LPS Report received from MARTINA Forrest with use of SBAR. Why are they here: Pt decompensated at board and care; increasingly agitated with bizarre, paranoid and delusional statements. Access center assessed and brought to ED for evaluation and stabilization. Assessment What happened this shift: Patient is much improved from previous night guard, less anxiety, no aggression. Patient tells this quality analyst/technical writer "I had a very nice visit with the Public Guardian." He states he was a little alvarez earlier but better now. Patient denies H/I or S/I. Patient does not present as delusional tonight. Patients shoulder pain persist but is much improved. Patient rests quietly and is compliant with medications. S/I, H/I: Pt denies. A/VH: Patient denies. Sleep: Sleeping some, will tally in am. ADL's: Independent. Group attendance: N/A on night guard. Were Meds taken: Yes, scheduled medications. Any med S/E: None noted or reported. Mental Status Exam Appearance: Casual in suit jacket Eye contact: Good. Behavior: Calm, friendly. Speech: Clear, audible. Mood: Slightly depressed. Affect: Flat. Thought process: Circumstantial. Thought Content: Pain control, meeting needs. Cognition: A/O X 3. Insight: Fair. Judgment: Fair. Interventions PRN's used: Therapeutic interventions: provided 1:1 assessment, therapeutic communication and active listening, medication administration/education/monitoring, encouragement to attend groups, behavior monitoring and intervention as needed; verbal de-escalation, limit setting, Q 15 minute safety checks. Restraints/seclusion/emergency medication: N/A Justification of Continued Inpatient Treatment: Patient is LPS conserved and requires a safe and therapeutic environment until appropriate placement found.
[2020-07-29] MEDS: traMADol 50MG tablet PO PRN ×3 (04:07→18:39)
[2020-07-29] MEDS: divalproex sod 250mg ER (24-hour) tablet PO SCH ×2 (07:26→20:12)
[2020-07-29] MEDS: LORazepam 0.5 MG tablet PO SCH ×2 (07:26→20:12)
[2020-07-29] MEDS: haloperidol 5mg tablet PO SCH ×3 (07:26→20:13)
[2020-07-29] MEDS: pantoprazole 40mg Tablet.DR PO SCH (07:26)
[2020-07-29] MEDS: trihexyphenidyl HCL 5 MG tablet PO SCH ×3 (07:34→20:12)
[2020-07-29 08:04] VITALS: BP 121/78
--- NOTE | 2020-07-29 10:00 | NUR ---
This Clinicians goal for this process group were as follows: (1) Introduce and provide psychoeducation on Arguelles ABC method. (2) Practice working through Arguelles ABC method using examples provided by this Clinician. (3) Encourage Patients to process some of their own reoccurring situations utilizing Arguelles ABC methodology. (4) Process Clients thoughts and reflections on this topic within the group milieu. Patient identified experiencing the following levels of anxiety, depression, and anger/irritability while present in the group milieu (0-low; 10-High). Anxiety: 0/10 Depression: 0/10 Anger/irritability: 0/10 Patient presented as properly oriented x4 during the process group. Patient was dressed in nondescript, personal clothing that were appropriate within the milieu. Psychomotor activity was unremarkable. Patient's thought content was clear, and concrete, but was marked by delusional content. For example, during the process group discussion of Arguelles' ABC methodology, the activating event of a family member passing away was identified by a Patient. In this context, this Clinician asked the patients in the group to identify a helpful, balanced, or rational belief that could reduce the acuity of unwanted depression feelings associated with this loss, to which Patient responded, "Now he's 160% disabled and rich." Patient's thought process was clear, coherent, and linear, but--as noted--was marked by delusional thinking. This Clinician did not observe Patient responding to any internal stimuli during session. The rate, latency, and tone of Patients speech was within normal limits. Patient maintained regular eye contact with this Clinician. Patient presented in calm euthymic mood, with congruent affect during the process group. Patient presented as open and cooperative, and was verbally engaged and nonobtrusive within the group milieu aside from Patient's delusional comments, which this Clinician was able to redirect, while at the same time validating Patient's participation during the process group. Angelo Marks MA, PRODUCTION CONTROL COORDINATOR Addendum: 09/08/20 at 0848 by Angelo TILLMAN Amended: Links added.
--- NOTE | 2020-07-29 14:42 | NUR ---
NURSING PROGRESS NOTE Legal hold: LPS Report received from nurse with use of SBAR: MARTINA Lamb Why are they here: Patient decompensated at board and care; increasingly agitated with bizarre, paranoid and delusional statements. Access center assessed and brought to ED for evaluation and stabilization. Assessment What happened this shift: Received patient up in T.V room at shift change. Pt c/o right shoulder pain. Pt is prescribed Tramadol 50mg TID, pt received one at 0330. We are alternating PRN Tylenol and Tramadol and ice packs with effect. Pt rates shoulder pain 7/10 when exacerbated. Pt makes random delusional statements, but remains calm. Pt is visible on unit most of the shift and on occasion goes back to his room and sits in his chair. No outbursts as of this writing. S/I, H/I: Denies both. A/VH: No voices today. Sleep: 7.5 hrs per Sleep Assessment. ADL's: Independent. Group attendance: No group probably not today. Were Meds taken: Yes, without hesitation. Any med S/E: None noted or reported. Mental Status Exam Appearance: Disheveled, wearing dress suit and baseball cap. Encouraged shower. Eye contact: Good Behavior: Isolates to self, socializes with select peers Speech: Clear, audible, normal rate/rhythm today. Mood: Euthymic Affect: Congruent with mood Thought process: Circumstantial, delusional Thought Content: Shoulder pain Cognition: A/O X 3 Insight: Fair Judgment: Fair Interventions PRN's used: Tylenol, Tramadol x1 Therapeutic interventions: provided 1:1 assessment, therapeutic communication and active listening, pain management for right shoulder, medication administration/education/monitoring, encouragement to attend groups, behavior monitoring and intervention as needed, limit setting, Q 15 minute safety checks. Restraints/seclusion/emergency medication: N/A Justification of Continued Inpatient Treatment: Patient is LPS conserved and requires a safe and therapeutic environment until appropriate placement found.
[2020-07-29 19:00] VITALS: BP 127/94
[2020-07-29] MEDS: quetiapine 100mg tablet PO SCH (20:12)
[2020-07-30] MEDS: acetaminophen 325mg tablet PO PRN ×2 (00:37→18:51)
[2020-07-30] MEDS: traMADol 50MG tablet PO PRN ×3 (02:08→15:28)
[2020-07-30] MEDS: quetiapine 100mg tablet PO SCH (02:12)
--- NOTE | 2020-07-30 02:24 | NUR ---
NURSING PROGRESS NOTE: Hardik Schafer Legal hold: LPS Report received from MARTINA Forrest with use of SBAR Why are they here: Patient decompensated at board and care; increasingly agitated with bizarre, paranoid and delusional statements. Access center assessed and brought to ED for evaluation and stabilization. Assessment What happened this shift: Patient is observed socializing with others following shift change. Patient presents to this lyric writer as alert and occasionally making delusional statements. Patients primary focus is on his right anterior shoulder pain. The patient states this pain increases with right arm movement, it can be reproduced with palpation. Patients pain is being managed to a moderate degree with use of Tramadol, APAP, intermittent ice packs, and rest. This patient has not exhibited any outbursts this shift. He is cooperative with staff. Subjective complaints of shoulder pain late night and early am along with inability to sleep well. Tylenol, Seroquel, and Tramadol repeated. Patient is medication compliant. S/I, H/I: Denies.. A/VH: Denies.. Sleep: Intermittent sleep, will tally at 0500 hrs.. ADL's: Independent. Group attendance: None on NOC shift. Were Meds taken: Yes, medication compliant. Any med S/E: None noted or reported. Mental Status Exam Appearance: Disheveled, wearing dress suit and baseball cap. Encouraged shower. Eye contact: Good Behavior: Isolates in room save for minimal socialization with peers. Speech: Clear, audible, normal rate/rhythm today. Mood: Euthymic Affect: Congruent with mood, Thought process: Circumstantial, delusional. Thought Content: Shoulder pain, some anxiety. Cognition: A/O X 3. Insight: Fair. Judgment: Fair. Interventions PRN's used: Tylenol, Tramadol, Seroquel. Ice pack. Therapeutic interventions: provided 1:1 assessment, therapeutic communication and active listening, pain management for right shoulder, medication administration/education/monitoring, encouragement to attend groups, behavior monitoring and intervention as needed, limit setting, Q 15 minute safety checks. Restraints/seclusion/emergency medication: N/A Justification of Continued Inpatient Treatment: Patient is LPS conserved and requires a safe and therapeutic environment until appropriate placement found.
[2020-07-30 07:35] VITALS: BP 109/76
[2020-07-30] MEDS: trihexyphenidyl HCL 5 MG tablet PO SCH ×3 (08:09→20:31)
[2020-07-30] MEDS: divalproex sod 250mg ER (24-hour) tablet PO SCH ×2 (08:10→20:31)
[2020-07-30] MEDS: haloperidol 5mg tablet PO SCH ×3 (08:10→20:33)
[2020-07-30] MEDS: LORazepam 0.5 MG tablet PO SCH ×2 (08:10→20:32)
[2020-07-30] MEDS: pantoprazole 40mg Tablet.DR PO SCH (08:10)
--- NOTE | 2020-07-30 17:37 | NUR ---
NURSING PROGRESS NOTE: Legal hold: LPS Report received from MARTINA Lamb with use of SBAR Why are they here: Patient decompensated at board and care; increasingly agitated with bizarre, paranoid and delusional statements. Access center assessed and brought to ED for evaluation and stabilization. Assessment What happened this shift: Pt is cooperative throughout the day without outbursts. He requested pain med for his right shoulder and was given Ultram with good relief once per RN once per head charger. He took naps through the day. Minimally socialized. S/I, H/I: Pt Denies. A/VH: Pt Denies. Sleep: 7.75 h per sleep assessment ADL's: Independent. Group attendance: No. Were Meds taken: Yes. Any med S/E: None noted Mental Status Exam Appearance: Disheveled, continues to wear his dress suit and baseball cap. Encouraged again to shower. Eye contact: Good Behavior: Mostly isolative. Speech: WNL Mood: Blunted Affect: Flat Thought process: Linear Thought Content: Circumstantial, Shoulder pain. Cognition: A/O X 3. Insight: Fair. Judgment: Fair. Interventions PRN's used: Ultram x2, rest Therapeutic interventions: provided 1:1 assessment, therapeutic communication and active listening, pain management for right shoulder, medication administration/education/monitoring, encouragement to attend groups, behavior monitoring and intervention as needed, limit setting, Q 15 minute safety checks. Restraints/seclusion/emergency medication: N/A Justification of Continued Inpatient Treatment: Patient is LPS conserved and requires a safe and therapeutic environment until appropriate placement found.
[2020-07-30 19:00] VITALS: BP 130/87
[2020-07-30 19:35] VITALS: BP 130/87
[2020-07-30] MEDS ORDERED: quetiapine 100mg tablet PO ONE (20:50)
--- NOTE | 2020-07-31 01:39 | NUR ---
NURSING PROGRESS NOTE: Legal hold: LPS Report received from MARTINA Forrest with use of SBAR Why are they here: Patient decompensated at board and care; increasingly agitated with bizarre, paranoid and delusional statements. Access center assessed and brought to ED for evaluation and stabilization. Assessment What happened this shift: Pt up on unit at start of shift. Pt did not interact very much with other pts. He is pleasant and cooperative all shift. He requested pain med for his right shoulder and was given Tylenol reported good relief. S/I, H/I: Pt Denies. A/VH: Pt Denies. Sleep: asleep at this time ADL's: Independent. Group attendance: No. Were Meds taken: Yes. Any med S/E: None noted Mental Status Exam Appearance: Disheveled, continues to wear his dress suit and baseball cap. Encouraged again to shower. Eye contact: Good Behavior: Mostly isolative. Speech: WNL Mood: Blunted Affect: Flat Thought process: Linear Thought Content: Circumstantial, Shoulder pain. Cognition: A/O X 3. Insight: Fair. Judgment: Fair. Interventions PRN's used: Tylenol Therapeutic interventions: provided 1:1 assessment, therapeutic communication and active listening, pain management for right shoulder, medication administration/education/monitoring, encouragement to attend groups, behavior monitoring and intervention as needed, limit setting, Q 15 minute safety checks. Restraints/seclusion/emergency medication: N/A Justification of Continued Inpatient Treatment: Patient is LPS conserved and requires a safe and therapeutic environment until appropriate placement found.
[2020-07-31] MEDS: pantoprazole 40mg Tablet.DR PO SCH (07:43)
[2020-07-31] MEDS: LORazepam 0.5 MG tablet PO SCH ×2 (07:43→20:50)
[2020-07-31] MEDS: divalproex sod 250mg ER (24-hour) tablet PO SCH ×2 (07:43→20:49)
[2020-07-31] MEDS: haloperidol 5mg tablet PO SCH ×3 (07:44→20:49)
[2020-07-31] MEDS: traMADol 50MG tablet PO PRN ×3 (07:44→23:22)
[2020-07-31] MEDS: trihexyphenidyl HCL 5 MG tablet PO SCH ×3 (07:48→20:50)
[2020-07-31 08:00] VITALS: BP 98/60
--- NOTE | 2020-07-31 16:20 | NUR ---
NURSING PROGRESS NOTE: Legal hold: LPS Report received from MARTINA Lamb with use of SBAR Why are they here: Patient decompensated at board and care; increasingly agitated with bizarre, paranoid and delusional statements. Access center assessed and brought to ED for evaluation and stabilization. Assessment What happened this shift: Patient requested tramadol for 9/10 right shoulder pain at very start of shift, as well as the rest of his morning medications. Patient went to community room for breakfast and is seen ambulating in the halls. Patient states "I don't like these people here. these little boys and girls." I asked what was going on to make him feel this way. He states "This girl said she liked my shirt and I didn't feel like saying anything and this gabriella said 'thats fucked up' but its not fucked up. sometimes its best not to say anything. I think she wants my shirt!" I let the patient know his shirt is safe and no one is going to take it. patient ate lunch in group room, back in bed for a nap, states he is tired. Patient ambulating in [place]. S/I, H/I: Pt Denies. A/VH: Pt Denies. Sleep: 9.25 per sleep assessment ADL's: Independent. Group attendance: No. Were Meds taken: Yes. Any med S/E: None noted Mental Status Exam Appearance: Disheveled, continues to wear his dress suit and baseball cap. Encouraged again to shower. Eye contact: Good Behavior: Mostly isolative. Speech: WNL but slow at times Mood: Blunted Affect: Flat Thought process: Linear Thought Content: Circumstantial, Shoulder pain. Cognition: A/O X 3. Insight: Fair. Judgment: Fair. Interventions PRN's used: Ultram x2, rest Therapeutic interventions: provided 1:1 assessment, therapeutic communication and active listening, pain management for right shoulder, medication administration/education/monitoring, encouragement to attend groups, behavior monitoring and intervention as needed, limit setting, Q 15 minute safety checks. Restraints/seclusion/emergency medication: N/A Justification of Continued Inpatient Treatment: Patient is LPS conserved and requires a safe and therapeutic environment until appropriate placement found.
[2020-07-31 19:23] VITALS: BP 121/80
[2020-07-31] MEDS: quetiapine 100mg tablet PO SCH (20:50)
[2020-07-31] MEDS: acetaminophen 325mg tablet PO PRN (21:50)
[2020-07-31] MEDS: quetiapine 100mg tablet PO PRN (23:22)
--- NOTE | 2020-08-01 02:19 | NUR ---
NURSING PROGRESS NOTE: Legal hold: LPS Report received from MARTINA Eden with use of SBAR Why are they here: Patient decompensated at board and care; increasingly agitated with bizarre, paranoid and delusional statements. Access center assessed and brought to ED for evaluation and stabilization. Assessment What happened this shift: Pt in room at start of shift. Late he ambulated on unit came for snack to group room. Pt lying in bed and yelled out. Pt can see staff break room door from bed. He said people kept going in that room and that is where the man with the money is. Explained to pt that is the break room he said "No it isn't" Given reassurance, pt door partially closed so he no longer can see break room. Pt calmed down no more yelling. Pt given Tramadol and warm pack for c/o rt shoulder pain. Pt came out of room about 2300 said he couldn't sleep. Given PRN Seroquel went back to sleep sleeping at this time. S/I, H/I: Pt Denies. A/VH: Pt Denies. Sleep: asleep at this time ADL's: Independent. Group attendance: No. Were Meds taken: Yes. Any med S/E: None noted Mental Status Exam Appearance: Disheveled, continues to wear his dress suit and baseball cap. Encouraged again to shower. Eye contact: Good Behavior: Mostly isolative. Speech: WNL but slow at times Mood: Blunted Affect: Flat Thought process: Linear Thought Content: Circumstantial, Shoulder pain. Cognition: A/O X 3. Insight: Fair. Judgment: Fair. Interventions PRN's used: Ultram x1, Seroquel Therapeutic interventions: provided 1:1 assessment, therapeutic communication and active listening, pain management for right shoulder, medication administration/education/monitoring, encouragement to attend groups, behavior monitoring and intervention as needed, limit setting, Q 15 minute safety checks. Restraints/seclusion/emergency medication: N/A Justification of Continued Inpatient Treatment: Patient is LPS conserved and requires a safe and therapeutic environment until appropriate placement found.
[2020-08-01] MEDS: trihexyphenidyl HCL 5 MG tablet PO SCH ×3 (07:51→20:35)
[2020-08-01] MEDS: haloperidol 5mg tablet PO SCH ×3 (07:51→20:36)
[2020-08-01] MEDS: LORazepam 0.5 MG tablet PO SCH ×2 (07:51→20:36)
[2020-08-01] MEDS: pantoprazole 40mg Tablet.DR PO SCH (07:51)
[2020-08-01] MEDS: divalproex sod 250mg ER (24-hour) tablet PO SCH ×2 (07:51→20:48)
[2020-08-01] MEDS: acetaminophen 325mg tablet PO PRN ×2 (07:52→15:29)
[2020-08-01 08:26] VITALS: BP 103/58
[2020-08-01] MEDS: traMADol 50MG tablet PO PRN ×2 (10:41→17:53)
[2020-08-01 19:35] VITALS: BP 105/67
[2020-08-01] MEDS: quetiapine 100mg tablet PO SCH (20:36)
[2020-08-01] MEDS: LORazepam 1 MG tablet PO PRN (21:33)
--- NOTE | 2020-08-01 22:25 | NUR ---
NURSING PROGRESS NOTE Legal hold: LPS Report received from nurse with use of SBAR: MARTINA Brock Why are they here: Patient decompensated at board and care; increasingly agitated with bizarre, paranoid and delusional statements. Access center assessed and brought to ED for evaluation and stabilization. Assessment What happened this shift: Received patient in bed sleeping at shift change. Pt wakes for breakfast and asks for AM medications. Pt reports right shoulder pain 2/10 and requests Tylenol. Administered with effect. Pt showered and bed linens changed. Pt was encouraged to attend group, but declined. Pt denies all MH symptoms. Pt. Napped intermittently in the afternoon. No outbursts or agitation noted today. S/I, H/I: Denies both. A/VH: No voices today. Sleep: 8 hrs per Sleep Assessment. No naps this shift. ADL's: Independent. Group attendance: No group probably not today. Were Meds taken: Yes, without hesitation. Any med S/E: None noted or reported. Mental Status Exam Appearance: Disheveled, wearing dress suit, purple t-shirt and baseball cap. Pt showered. Eye contact: Good Behavior: Isolates to self, socializes with select peers Speech: Clear, audible, normal rate/rhythm today. Mood: Euthymic Affect: Congruent with mood Thought process: Circumstantial, delusional Thought Content: Shoulder pain Cognition: A/O X 3 Insight: Fair Judgment: Fair Interventions PRN's used: Tylenol, Tramadol x1 Therapeutic interventions: provided 1:1 assessment, therapeutic communication and active listening, pain management for right shoulder, medication administration/education/monitoring, encouragement to attend groups, behavior monitoring and intervention as needed, limit setting, Q 15 minute safety checks. Restraints/seclusion/emergency medication: N/A Justification of Continued Inpatient Treatment: Patient is LPS conserved and requires a safe and therapeutic environment until appropriate placement found. Addendum: 08/01/20 at 2235 by Katarina Valenzuela RN Disregard this note not correct
--- NOTE | 2020-08-01 22:27 | NUR ---
NURSING PROGRESS NOTE Legal hold: LPS Report received from nurse with use of SBAR: Vinod RN Why are they here: Patient decompensated at board and care; increasingly agitated with bizarre, paranoid and delusional statements. Access center assessed and brought to ED for evaluation and stabilization. Assessment What happened this shift: Pt in bed sleeping at start of shift. Up in group room part of shift. Pleasant and cooperative. Takes meds without problem. Given PRN Ativan per request. No delusional statements this shift. Denies Auditory of visual hallucinations does not appear to be responding to internal stimuli. S/I, H/I: Denies both. A/VH: No voices today. Sleep: asleep at this time ADL's: Independent. Group attendance: NA Were Meds taken: Yes, Any med S/E: no Mental Status Exam Appearance:green scrubs with suit coat Eye contact: Good Behavior: Isolates to self, socializes with select peers Speech: Clear, audible, normal rate/rhythm today. Mood: Euthymic Affect: Congruent with mood Thought process: Circumstantial, delusional Thought Content: Shoulder pain Cognition: A/O X 3 Insight: Fair Judgment: Fair Interventions PRN's used: Tylenol, Ativan Therapeutic interventions: provided 1:1 assessment, therapeutic communication and active listening, pain management for right shoulder, medication administration/education/monitoring, encouragement to attend groups, behavior monitoring and intervention as needed, limit setting, Q 15 minute safety checks. Restraints/seclusion/emergency medication: N/A Justification of Continued Inpatient Treatment: Patient is LPS conserved and requires a safe and therapeutic environment until appropriate placement found.
[2020-08-02] MEDS: quetiapine 100mg tablet PO PRN (00:17)
[2020-08-02] MEDS: trihexyphenidyl HCL 5 MG tablet PO SCH ×3 (07:36→20:54)
[2020-08-02] MEDS: pantoprazole 40mg Tablet.DR PO SCH (07:36)
[2020-08-02] MEDS: haloperidol 5mg tablet PO SCH ×3 (07:36→20:29)
[2020-08-02] MEDS: divalproex sod 250mg ER (24-hour) tablet PO SCH ×2 (07:36→20:29)
[2020-08-02] MEDS: LORazepam 0.5 MG tablet PO SCH ×2 (07:36→20:29)
[2020-08-02] MEDS: acetaminophen 325mg tablet PO PRN ×3 (07:40→20:30)
[2020-08-02 08:00] VITALS: BP 107/68
--- NOTE | 2020-08-02 10:00 | NUR ---
Group Therapy: Process Group This Clinicians goal for this process group were as follows: (1) Ask scaling questions about patients current anxiety, depression, and irritability symptoms as a check-in (2) Introduce and provide psychoeducation on distress tolerance skills. (2) Introduce the concept of radical acceptance and using our senses to self-soothe. (3) Share the acronym, RachelPEugeneTEugeneACaylaCEugeneE Activities; Contributing; Comparisons; Emotions; Pushing Away; Thoughts; and Sensations (4) Process Clients thoughts and reflections on this topic within the group milieu. Patient presented as properly oriented x4 during the process group. Patient was dressed in nondescript, personal clothing that were appropriate within the milieu. Psychomotor activity was unremarkable. This Clinician did not observe Patient responding to any internal stimuli during session. Patient arrived to the process group approximately 40 minutes after the beginning of the group and quietly sat in the back of the group room. This Clinician greeted Patient and asked him how he was doing. Patient stated that he was doing, "Alright." This Clinician recommenced sharing information on today's topic of radical acceptance and practicing distress tolerance skills to assist patients in reducing the acuity of unwanted health symptoms that they may experience during episodes of emotional escalation. Patient left the process group shortly after this Clinician began talking and did not return. This Clinician was unable to ask Patient scaling questions about his subjective levels of anxiety, depression, and anger/irritability symptoms. Patient did not participate in the group discussion on the topic mentioned above in this progress note. Angelo Marks MA, LEXIE Addendum: 08/03/20 at 0838 by Angelo Marks SS Amended: Links added.
--- NOTE | 2020-08-02 14:25 | NUR ---
NURSING PROGRESS NOTE Legal hold: LPS Report received from MARTINA Fish with use of SBAR. Why are they here: Patient decompensated at board and care; increasingly agitated with bizarre, paranoid and delusional statements. Access center assessed and brought to ED for evaluation and stabilization. Assessment What happened this shift: Patient sleeping at shift change and awakens for medications and breakfast. Patient appears pale and unsteady on feet and is walking without glasses on. Patient awakens later and states that he did not have breakfast and that he is hungry, informed that he did eat breakfast and that snack would be in 30 minutes. Patient keeps asking RN if he has taken his medications, memory seems impaired today. S/I, H/I: Denies both. A/VH: Denies. Sleep: 8.25 hrs NOC. Napped after breakfast. ADL's: Independent. Group attendance: No Were Meds taken: Yes, without hesitation. Any med S/E: None noted or reported. Mental Status Exam Appearance: Clean wearing lama suit. Eye contact: Good Behavior: Fatigued. Speech: Clear, audible, normal rate/rhythm today. Mood: Subdued. Affect: Congruent with mood Thought process: Circumstantial, delusional Thought Content: Shoulder pain, food. Cognition: A/O X 3 Insight: Fair Judgment: Fair Interventions PRN's used: Tylenol. Therapeutic interventions: provided 1:1 assessment, therapeutic communication and active listening, pain management for right shoulder, medication administration/education/monitoring, encouragement to attend groups, behavior monitoring and intervention as needed, limit setting, Q 15 minute safety checks. Restraints/seclusion/emergency medication: N/A Justification of Continued Inpatient Treatment: Patient is LPS conserved and requires a safe and therapeutic environment until appropriate placement found.
[2020-08-02] MEDS: traMADol 50MG tablet PO PRN (16:20)
--- NOTE | 2020-08-02 16:47 | NUR ---
Reassessment: Pt PO 75-100% avg regular diet meeting needs. LBM 07/30. No nutrition concerns at this time. Will continue to monitor. Recommend: 1. continue regular diet 2. routine bowel care 3. wt per rx Addendum: 08/02/20 at [address]7 by [address] Miguel [address] RD Amended: Links added.
[2020-08-02 20:00] VITALS: BP 132/77
[2020-08-02] MEDS: quetiapine 100mg tablet PO SCH (20:29)
--- NOTE | 2020-08-02 23:07 | NUR ---
NURSING PROGRESS NOTE Legal hold: LPS Report received from MARTINA Fish with use of SBAR. Why are they here: Patient decompensated at board and care; increasingly agitated with bizarre, paranoid and delusional statements. Access center assessed and brought to ED for evaluation and stabilization. Assessment What happened this shift: Patient asks if I am his nurse and when I answered "yes, what do you need," the patient stated he forgot what he wanted. Patient appears pale and unsteady on feet and is walking without glasses on. Patient lying in bed when I brought his medication to him and observed patient taking all medication. S/I, H/I: Denies both. A/VH: Denies. Sleep: 8.25 hrs NOC. ADL's: Independent. Group attendance: No Were Meds taken: Yes, without hesitation. Any med S/E: None noted or reported. Mental Status Exam Appearance: Clean wearing lama suit. Eye contact: Good Behavior: Fatigued. Speech: Clear, audible, normal rate/rhythm today. Mood: Subdued. Affect: Congruent with mood Thought process: Circumstantial, delusional Thought Content: Shoulder pain, food. Cognition: A/O X 3 Insight: Fair Judgment: Fair Interventions PRN's used: Tylenol. Therapeutic interventions: provided 1:1 assessment, therapeutic communication and active listening, pain management for right shoulder, medication administration/education/monitoring, encouragement to attend groups, behavior monitoring and intervention as needed, limit setting, Q 15 minute safety checks. Restraints/seclusion/emergency medication: N/A Justification of Continued Inpatient Treatment: Patient is LPS conserved and requires a safe and therapeutic environment until appropriate placement found.
[2020-08-03] MEDS: quetiapine 100mg tablet PO PRN ×2 (03:54→22:56)
[2020-08-03] MEDS: traMADol 50MG tablet PO PRN ×3 (06:15→18:34)
[2020-08-03] MEDS: haloperidol 5mg tablet PO SCH ×3 (07:44→20:17)
[2020-08-03] MEDS: divalproex sod 250mg ER (24-hour) tablet PO SCH ×2 (07:44→20:17)
[2020-08-03] MEDS: LORazepam 0.5 MG tablet PO SCH ×2 (07:44→20:17)
[2020-08-03] MEDS: pantoprazole 40mg Tablet.DR PO SCH (07:44)
[2020-08-03] MEDS: trihexyphenidyl HCL 5 MG tablet PO SCH ×3 (07:44→20:17)
[2020-08-03 08:00] VITALS: BP 131/88
--- NOTE | 2020-08-03 14:23 | NUR ---
NURSING PROGRESS NOTE Legal hold: LPS Report received from MARTINA Fish with use of SBAR. Why are they here: Patient decompensated at board and care; increasingly agitated with bizarre, paranoid and delusional statements. Access center assessed and brought to ED for evaluation and stabilization. Assessment What happened this shift: Patient was up at change of shift. Patient is happy and more himself today. Patient talkative and redirectable. Patient has not made bizarre statements today that RN has overheard. Patient watches T.V., takes a nap. Sits in the group room. Patient is social at times. Patient is accepted at an [facility] and just awaiting an open bed. S/I, H/I: Denies A/VH: Denies Sleep: several naps today ADL's: Independent. Group attendance: No Were Meds taken: Yes Any med S/E: None noted or reported. Mental Status Exam Appearance: Clean wearing lama suit. Eye contact: Good Behavior: Pleasant and Cooperative Speech: Clear, audible, normal rate/rhythm today. Mood: Flat Affect: Flat Thought process: Circumstantial Thought Content: Shoulder pain. Cognition: A/O X 3 Insight: Fair Judgment: Fair Interventions PRN's used: Tylenol. Tramadol Therapeutic interventions: provided 1:1 assessment, therapeutic communication and active listening, pain management for right shoulder, medication administration/education/monitoring, encouragement to attend groups, behavior monitoring and intervention as needed, limit setting, Q 15 minute safety checks. Restraints/seclusion/emergency medication: N/A Justification of Continued Inpatient Treatment: Patient is LPS conserved and requires a safe and therapeutic environment until appropriate placement found.
--- NOTE | 2020-08-03 14:40 | NUR ---
TRANSFER TO [facility] ON Saturday08/08/20 Hardik will be picked up by [facility] around 10 AM on Saturday and transferred to [facility]. LEXIE Squires
[2020-08-03 20:07] VITALS: BP 122/78
[2020-08-03] MEDS: quetiapine 100mg tablet PO SCH (20:17)
[2020-08-03] MEDS: LORazepam 1 MG tablet PO PRN (21:41)
--- NOTE | 2020-08-04 01:18 | NUR ---
NURSING PROGRESS NOTE Legal hold: LPS Report received from nurse with use of SBAR: MARTINA Brock Why are they here: Patient decompensated at board and care; increasingly agitated with bizarre, paranoid and delusional statements. Access center assessed and brought to ED for evaluation and stabilization. Assessment What happened this shift: Pt was visible in the unit during shift change. Pt had a little disagreement with a select peer but was easily redirectable. He talks about discharge, states that he will be leaving on Saturday. I hope I go to a nice place. I think it will be in [place] or [place]. He spent some time in rec room watching TV. No other behavioral outburst were reported or observed. Pt took all his HS medications without any issues. When asked about A/VH, he states he is not hearing any voices right now, but was observed responding to internal stimuli as he was talking to himself a few times. He also does make some delusional statements such as Kyra been playing baseball with the [employer]. I think Kyra been loosing though. Pt did request Ativan stating that he was wide awake and couldnt sleep. This was given with minimal effectiveness. He later on and requested more Seroquel. He states that this usually helps him fall asleep. This was given and pt was observed sleeping for most of the night. S/I, H/I: Denies both. A/VH: Denies but was responding to internal stimuli Sleep: Currently sleeping, see sleep assessment for total hours, does have some difficulty falling asleep ADL's: Independent. Group attendance: None during hotel night auditor Were Meds taken: Yes Any med S/E: None noted or reported Mental Status Exam Appearance: Somewhat disheveled, wearing green unit scrubs and suit coat, hair looks messy and unkempt Eye contact: Direct, almost intense Behavior: Becomes somewhat agitated with another patient but re-directable and cooperative, remains calm, does not escalate into outburst Speech: Clear, slow Mood: Anxious, hopeful Affect: Blunted Thought process: Circumstantial, delusional Thought Content: Shoulder pain, discharge, meds, Cognition: A/O X 3 Insight: Fair Judgment: Fair Interventions PRN's used: Ativan, Seroquel Therapeutic interventions: provided 1:1 assessment, therapeutic communication and active listening, pain management for right shoulder, medication administration/education/monitoring, encouragement to attend groups, behavior monitoring and intervention as needed, limit setting, Q 15 minute safety checks. Restraints/seclusion/emergency medication: N/A Justification of Continued Inpatient Treatment: Patient is LPS conserved and requires a safe and therapeutic environment until appropriate placement found.
[2020-08-04] MEDS: LORazepam 0.5 MG tablet PO SCH ×2 (08:10→20:27)
[2020-08-04] MEDS: haloperidol 5mg tablet PO SCH ×3 (08:11→20:27)
[2020-08-04] MEDS: trihexyphenidyl HCL 5 MG tablet PO SCH ×3 (08:11→20:27)
[2020-08-04] MEDS: traMADol 50MG tablet PO PRN ×3 (08:11→22:49)
[2020-08-04] MEDS: pantoprazole 40mg Tablet.DR PO SCH (08:11)
[2020-08-04] MEDS: divalproex sod 250mg ER (24-hour) tablet PO SCH ×2 (09:07→20:27)
[2020-08-04] MEDS ORDERED: TRAM50TA2 PO (14:18)
[2020-08-04] MEDS ORDERED: Lorazepam PO (14:18)
[2020-08-04] MEDS ORDERED: HALO5TAB PO ×2 (14:18)
[2020-08-04] MEDS ORDERED: QUET100T33 PO ×2 (14:18)
[2020-08-04] MEDS ORDERED: PANT40TA54 PO (14:18)
[2020-08-04] MEDS ORDERED: TRIH5TAB2 PO ×2 (14:18)
[2020-08-04] MEDS ORDERED: DIVA250T8 PO (14:18)
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
[2020-08-04] MEDS: LORazepam 1 MG tablet PO PRN (17:31)
[2020-08-04 19:53] VITALS: BP 114/81
[2020-08-04] MEDS: quetiapine 100mg tablet PO SCH ×2 (20:27→21:21)
--- NOTE | 2020-08-05 01:08 | NUR ---
NURSING PROGRESS NOTE Legal hold: LPS Report received from nurse with use of SBAR: CAROLIN Forrest Why are they here: Patient decompensated at board and care; increasingly agitated with bizarre, paranoid and delusional statements. Access center assessed and brought to ED for evaluation and stabilization. Assessment What happened this shift: Pt was in his room sleeping during shift change. Does not appear to be in any distress. States he still feels excited about discharge and going to [place] but feels a little nervous about it since he has been in the hospital for a very long time. Doesnt know how everything will be once he leaves. Pt denies any A/VH, depression or anxiety, and was not observed responding to internal stimuli this shift but continues to make delusional statements. He remains isolative to his room for the majority of the evening and there were no behavioral outbursts per this shift. He was having some difficulty falling asleep and he requested second dose of Seroquel. This was given with minimal effect as he was still not able to fall asleep. Later on pt requested Tramadol stating that his pain was 8/10. He spent some more time sitting in his chair listening to music before going to sleep. S/I, H/I: Denies both. A/VH: Denies Sleep: Currently sleeping, see sleep assessment for total hours, does have some difficulty falling asleep ADL's: Independent. Group attendance: None during shift mgr Were Meds taken: Yes Any med S/E: None noted or reported Mental Status Exam Appearance: Somewhat disheveled, wearing green unit scrubs and suit coat, hair looks messy and unkempt Eye contact: Direct Behavior: Cooperative, isolative, calm Speech: Clear, slow Mood: Anxious, nervous, worried about discharge Affect: Blunted with very minimal brightening Thought process: Circumstantial, delusional Thought Content: Preoccupied with discharge, meds, pain management Cognition: A/O X 3 Insight: Fair Judgment: Fair Interventions PRN's used: Tramadol, Seroquel Therapeutic interventions: provided 1:1 assessment, therapeutic communication and active listening, pain management for right shoulder, medication administration/education/monitoring, encouragement to attend groups, behavior monitoring and intervention as needed, limit setting, Q 15 minute safety checks. Restraints/seclusion/emergency medication: N/A Justification of Continued Inpatient Treatment: Patient is LPS conserved and requires a safe and therapeutic environment until appropriate placement found.
[2020-08-05] MEDS: pantoprazole 40mg Tablet.DR PO SCH (07:42)
[2020-08-05] MEDS: haloperidol 5mg tablet PO SCH ×3 (07:43→20:01)
[2020-08-05] MEDS: LORazepam 0.5 MG tablet PO SCH ×2 (07:43→20:01)
[2020-08-05] MEDS: divalproex sod 250mg ER (24-hour) tablet PO SCH ×2 (07:43→20:01)
[2020-08-05] MEDS: trihexyphenidyl HCL 5 MG tablet PO SCH ×3 (07:48→20:01)
[2020-08-05] MEDS: traMADol 50MG tablet PO PRN ×3 (08:03→20:08)
[2020-08-05 08:41] VITALS: BP 105/63
--- NOTE | 2020-08-05 10:00 | NUR ---
Group Therapy: Process Group This Clinicians goals for this process group were as follows: (1) Ask scaling questions about Patients current anxiety, depression, and irritability symptoms as a check-in. (2) Share psychoeducation about emotional escalation as it relates to stress and negative symptoms, Fight, flight, freeze. (2) Provide psychoeducation on the STOPP acronym: Stop, Take a Breath, Observe the situation, Put things into perspective, and, Practice what works. (3) Share psychoeducation on principles of mindfulness and emotional relaxation techniques that Patients may utilize to reduce the acuity of unwanted emotional escalation. (5) Process Clients thoughts and reflections on this topic within the group milieu. Patient presented as properly oriented x4 during the process group. Patient was dressed in nondescript, personal clothing that were appropriate within the milieu. He wore a dark smallwood suit jacket over a purple t-shirt, with dark smallwood slacks. He wore a [employer] baseball cap. Patient's psychomotor activity appeared slightly subdued as evidenced by slow movement of his hands while he was seated. Patient's thought content was clear, and concrete. Patient's thought process was largely clear, coherent, and linear. This Clinician did not observe Patient responding to any internal stimuli during session. The rate, and latency of Patient's speech appeared slightly slow and delayed. The tone of Patient's speech was within normal limits. Patient maintained regular eye contact with this Clinician. Patient presented in calm, euthymic mood, with blunted affect during the process group. Patient presented as cooperative, verbally subdued, and nonobtrusive within the group milieu. Patient arrived for approximately the last 10 minutes of the process group. This Clinician attempted to ask Patient scaling questions about the intensity of his depression, anxiety, and anger/irritability symptoms, but Patient appeared lethargic and unable to respond. He did not contribute verbally during the discussion on the STOPP method of emotional deescalation. At the end of the process group, Patient approached this Clinician and told him that he planned on being discharged soon. Patient mentioned that he was looking forward to discharge. This Clinician wished Patient well on his pending discharge. Angelo Marks MA, SAILING MASTER Addendum: 08/08/20 at 0907 by Angelo Marks SS Amended: Links added.
--- NOTE | 2020-08-05 14:35 | NUR ---
PLACEMENT UPDATE [facility] was supposed to open om 08/08/20 and they are changing the opening date to 08/10/20. We are waiting for a new admit/transfer date for Hardik. Informed Hardik of this and he appeared to take the news well. LEXIE Squires
--- NOTE | 2020-08-05 16:15 | NUR ---
NURSING PROGRESS NOTE Legal hold: LPS Report received from MARTINA Lamb with use of SBAR. Why are they here: Patient decompensated at board and care; increasingly agitated with bizarre, paranoid and delusional statements. Access center assessed and brought to ED for evaluation and stabilization. Assessment What happened this shift: Received patient sleeping in bed at shift change. Pt was awoken for vitals and then for breakfast. Pt requested medications after breakfast. Pt appears fatigued this morning and he appeared a little wobbly on his feet. Pt reports right shoulder pain 8/10 and requested PRN Tramadol. Alternated ice and warm washcloth to shoulder. Pt took meds sat in group room for a short time and this real estate underwriter then assisted him back to his room where he napped. When pt woke he stated I feel better. Pt talks about being happy about his discharge I think it will be good for me. But also voices feeling a little apprehensive. Pt is visible on unit in the afternoon watching TV and socializing with select peers. It was brought to my attention that pt was yelling in his room and no one was there. Upon meeting pt states you can get rid of that bitch! Pt was referring to a female peer she did me wrong. Pt had a negative interaction and then walked down to his room without engaging with female peer. Pt stated I am okay, I dont need anything. There will be no more problems. Pt was commended on how he handled the situation. S/I, H/I: Denies both. A/VH: Denies both. Sleep: 8 hrs per Sleep Assessment. Napped after breakfast. ADL's: Independent. Group attendance: First 20 mins of AM group. Were Meds taken: Yes, without hesitation. Any med S/E: None observed or reported. Mental Status Exam Appearance: Clean wearing purple hat, lama dress suit and Neal ball cap. Eye contact: Good Behavior: Cooperative, calm. Fatigued in the AM, watching TV in group room. Speech: Clear, audible, normal rate/rhythm today. Mood: Euthymic Affect: Flat Thought process: Circumstantial Thought Content: Patient is happy to be going to [place]. Cognition: A/O X 3 Insight: Fair Judgment: Fair Interventions PRN's used: Tramadol Therapeutic interventions: provided 1:1 assessment, therapeutic communication and active listening, pain management for right shoulder, medication administration/education/monitoring, encouragement to attend groups, behavior monitoring and intervention as needed, limit setting, Q 15 minute safety checks. Restraints/seclusion/emergency medication: N/A Justification of Continued Inpatient Treatment: Patient is LPS conserved and requires a safe and therapeutic environment. Patient was accepted to [place] waiting for new discharge date/time.
--- NOTE | 2020-08-05 17:41 | NUR ---
Patient requested a Tramadol for right shoulder pain 05/04. Dose was too soon, pt refused Tylenol.
[2020-08-05 20:00] VITALS: BP 107/83
[2020-08-05] MEDS: quetiapine 100mg tablet PO SCH ×2 (20:01→22:08)
--- NOTE | 2020-08-06 02:51 | NUR ---
NURSING PROGRESS NOTE Legal hold: LPS Report received from nurse with use of SBAR: CAROLIN Forrest Why are they here: Patient decompensated at board and care; increasingly agitated with bizarre, paranoid and delusional statements. Access center assessed and brought to ED for evaluation and stabilization. Assessment What happened this shift: Pt was visible in the unit during shift change. Wants to have his Tramadol at 8. Denies any A/VH, and did not appear to be responding to internal stimuli. States that he is really sad that he has to stay on conservatorship. He states that where he was at, they werent really doing anything for him. He did make some delusional statements such as they didnt know what I was doing when I was flying around they airplanes. He did take all his HS meds. Including his Tramadol. He spent some time in group room before returning to his room. He later on asked for a second dose of Seroquel. He was concerned that asking for this medication constantly was going to affect his discharge time. He was assured that this would have no impact on his discharge. S/I, H/I: Denies both. A/VH: Denies Sleep: Currently sleeping, see sleep assessment for total hours ADL's: Independent. Group attendance: None during scourer Were Meds taken: Yes Any med S/E: None noted or reported Mental Status Exam Appearance: Appropriate, wearing green unit scrubs and coat Eye contact: Direct Behavior: Cooperative, isolative, calm Speech: Clear, slow Mood: "Sad" worried about discharge Affect: Blunted Thought process: Circumstantial, delusional Thought Content: Does not want to be conserved anymore, meds, discharge Cognition: A/O X 3 Insight: Fair Judgment: Fair Interventions PRN's used: Tramadol, Seroquel Therapeutic interventions: provided 1:1 assessment, therapeutic communication and active listening, pain management for right shoulder, medication administration/education/monitoring, encouragement to attend groups, behavior monitoring and intervention as needed, limit setting, Q 15 minute safety checks. Restraints/seclusion/emergency medication: N/A Justification of Continued Inpatient Treatment: Patient is LPS conserved and requires a safe and therapeutic environment until appropriate placement found.
[2020-08-06] MEDS: LORazepam 1 MG tablet PO PRN (03:55)
[2020-08-06] MEDS: traMADol 50MG tablet PO PRN ×3 (05:25→21:07)
[2020-08-06] MEDS: divalproex sod 250mg ER (24-hour) tablet PO SCH ×2 (08:10→20:04)
[2020-08-06] MEDS: LORazepam 0.5 MG tablet PO SCH ×2 (08:11→20:04)
[2020-08-06] MEDS: trihexyphenidyl HCL 5 MG tablet PO SCH ×3 (08:11→20:03)
[2020-08-06] MEDS: pantoprazole 40mg Tablet.DR PO SCH (08:11)
[2020-08-06] MEDS: haloperidol 5mg tablet PO SCH ×3 (08:11→20:04)
[2020-08-06 08:36] VITALS: BP 104/68
[2020-08-06] MEDS: acetaminophen 325mg tablet PO PRN (09:18)
[2020-08-06] MEDS: naproxen 500mg tablet PO SCH (17:24)
--- NOTE | 2020-08-06 17:57 | NUR ---
NURSING PROGRESS NOTE Legal hold: LPS Report received from MARTINA Lamb with use of SBAR. Why are they here: Patient decompensated at board and care; increasingly agitated with bizarre, paranoid and delusional statements. Access center assessed and brought to ED for evaluation and stabilization. Assessment What happened this shift: Patient was asleep at change of shift and up for breakfast. RN gave patient his morning meds at Patient asked for his Tramadol medication for shoulder pain at 0830. RN had already checked and patient received it at 0525. RN told patient that it wasn't due until 1125. Patient got upset and denied getting the medication this morning. "You can just put it up your flag pole!" Patient walked away and then came back harassing RN. RN gave his Tramadol at 1130. Patient was fine. At 1430 patient asked for his Tramadol medication. RN advised patient that it's not due for 3 more hours. Patient again got upset and harassing RN. Kamaljit spoke to patient and added Naproxen 500 mg BID. Patient kept coming to the nurses station doorway and saying "wa wa wa! Your a big baby!" RN advised patient if he couldn't be polite he needs to leave. Patient came into the seclusion room and sat down on the seclusion bed. RN asked patient to leave but patient refused. RN had to get Ren to get patient out (patient saw Ren coming and he got up and walked out). And a few minutes later, more harassing. I don't know if patient if feeling anxious because he is leaving on Saturday but he was agitated all day. Patient was given his Tramadol and Naproxen at 1730 by MARTINA Greenberg. S/I, H/I: Denies both. A/VH: Denies both. Sleep: Napped ADL's: Independent. Group attendance: no Were Meds taken: Yes Any med S/E: None observed or reported. Mental Status Exam Appearance: Clean wearing purple hat, lama dress suit and Neal ball cap. Eye contact: Good Behavior: intrusive Speech: Pressured. Mood: agitated Affect: angry Thought process: Circumstantial Thought Content: Wanting Tramadol when he wants it. Cognition: A/O X 3 Insight: Fair Judgment: Fair Interventions PRN's used: Tramadol x2. Therapeutic interventions: provided 1:1 assessment, therapeutic communication and active listening, pain management for right shoulder, medication administration/education/monitoring, encouragement to attend groups, behavior monitoring and intervention as needed, limit setting, Q 15 minute safety checks. Restraints/seclusion/emergency medication: N/A Justification of Continued Inpatient Treatment: Patient is LPS conserved and requires a safe and therapeutic environment. Patient was accepted to [place] waiting for new discharge date/time.
[2020-08-06 19:35] VITALS: BP 126/80
[2020-08-06] MEDS: quetiapine 100mg tablet PO SCH ×2 (20:04→21:05)
--- NOTE | 2020-08-07 00:19 | NUR ---
NURSING PROGRESS NOTE Legal hold: LPS Report received from nurse with use of SBAR: CAROLIN Forrest Why are they here: Patient decompensated at board and care; increasingly agitated with bizarre, paranoid and delusional statements. Access center assessed and brought to ED for evaluation and stabilization. Assessment What happened this shift: Pt was visible int he unit during shift change. He was also observed sitting in his chair listening to music as well. States that his shoulder is not hurting as much although still stiff but believes that the new medication he is taking now is helping. Rates his pain a 3/10 and did not require any Tramadol in the evening but did states that he might need it later on. Pt was cooperative during 1:1 physical assessment and took all his HS medications. He denies any A/VH, and does not appear to be responding to internal stimuli. He states that the thinks the reason he couldnt sleep last night was because he was having really bad dreams. Pt would not elaborate on the dreams that he was having but states that he hadnt had any dreams in a while and this made it worse as he couldnt go back to sleep after he woke up. He later on did request second dose of Seroquel and Tramadol, rating his pain a 5/10. These two were given with effectiveness as he retired to sleep and was not observed out of his room. There were no behavioral issues this evening. S/I, H/I: Denies both. A/VH: Denies Sleep: Currently sleeping, see sleep assessment for total hours ADL's: Independent. Group attendance: None during shift mgr Were Meds taken: Yes Any med S/E: None noted or reported Mental Status Exam Appearance: Appropriate, wearing green unit scrubs and coat Eye contact: Direct Behavior: Cooperative, isolative, calm, pleasant. Speech: Clear, slow Mood: "Good" Affect: Blunted Thought process: Circumstantial, delusional Thought Content: Meds, pain management, having weird dreams Cognition: A/O X 3 Insight: Fair Judgment: Fair Interventions PRN's used: Tramadol, Seroquel Therapeutic interventions: provided 1:1 assessment, therapeutic communication and active listening, pain management for right shoulder, medication administration/education/monitoring, encouragement to attend groups, behavior monitoring and intervention as needed, limit setting, Q 15 minute safety checks. Restraints/seclusion/emergency medication: N/A Justification of Continued Inpatient Treatment: Patient is LPS conserved and requires a safe and therapeutic environment until appropriate placement found.
[2020-08-07] MEDS: trihexyphenidyl HCL 5 MG tablet PO SCH ×3 (07:06→20:05)
[2020-08-07] MEDS: divalproex sod 250mg ER (24-hour) tablet PO SCH ×2 (07:06→20:05)
[2020-08-07] MEDS: LORazepam 0.5 MG tablet PO SCH ×2 (07:06→20:09)
[2020-08-07] MEDS: haloperidol 5mg tablet PO SCH ×3 (07:06→20:08)
[2020-08-07] MEDS: naproxen 500mg tablet PO SCH ×2 (07:07→17:05)
[2020-08-07] MEDS: pantoprazole 40mg Tablet.DR PO SCH (07:07)
[2020-08-07 09:15] VITALS: BP 112/64
[2020-08-07] MEDS: traMADol 50MG tablet PO PRN ×2 (11:43→18:49)
--- NOTE | 2020-08-07 16:02 | NUR ---
NURSING PROGRESS NOTE Legal hold: LPS Report received from MARTINA Lamb with use of SBAR. Why are they here: Patient decompensated at board and care; increasingly agitated with bizarre, paranoid and delusional statements. Access center assessed and brought to ED for evaluation and stabilization. Assessment What happened this shift: Received patient sleeping in bed no distress noted. Pt woke on his own and came looking for his nurse. Pt states I am feeling anxious, then later came back and said I am feeling pain. Pt had just woke up and was slightly unsteady on his feet. Gave pt a cup of coffee and explained I would be giving him his AM medications. Scheduled Naproxen 500mg and a headset was administered with effect. Pt was offered an ice or warm pack, but declined. Pt ate all meals in the group room and spent most of the morning in his room. Pt presented as fatigued or sedated mid-morning. Pt reported shoulder pain 3/10 around 1130 and requested Tramadol. This RN explained that for minor pain Tylenol will be administered. Pt became angry and said No, I dont want Tylenol I want MY Tramadol! My pain is a 7. Tramadol was administered and pt was educated on when to take medication. Pt again asked for Tramadol 3hrs later, when pt was denied due to medication being to early pt became angry and stomped back to his room. Pt refused any other intervention. This RN attempted to talk with patient, but pt stated No, I dont want to talk! Pt later came out of his room and apologized. This RN and pt talked about the ocean and different type so Sushi. S/I, H/I: Denies both. A/VH: Denies both. Sleep: 7.75 hrs per Sleep Assessment ADL's: Independent. Group attendance: No group today. Were Meds taken: Yes, without hesitation. Any med S/E: None observed or reported. Mental Status Exam Appearance: Clean wearing purple hat, lama dress suit and Neal ball cap. Eye contact: Good Behavior: Fatigued in the morning, irritable. Isolates to self-sitting in the group room or the chair in his room. Speech: Clear, pressured at times. Mood: Agitated Affect: Congruent with mood. Thought process: Circumstantial Thought Content: Wanting Tramadol when he wants it. Cognition: A/O X 3 Insight: Fair Judgment: Fair Interventions PRN's used: Tramadol x 1 Therapeutic interventions: Provided 1:1 assessment, therapeutic communication and active listening, pain management for right shoulder, medication administration/education/monitoring, encouragement to attend groups, verbal deescalation, behavior monitoring and intervention as needed, limit setting, Q 15 minute safety checks. Restraints/seclusion/emergency medication: N/A Justification of Continued Inpatient Treatment: Patient is LPS conserved and requires a safe and therapeutic environment. Patient was accepted to [place] waiting for new discharge date/time.
[2020-08-07 19:29] VITALS: BP 117/70
[2020-08-07] MEDS: quetiapine 100mg tablet PO SCH (22:51)
--- NOTE | 2020-08-08 02:42 | NUR ---
NURSING PROGRESS NOTE Legal hold: LPS Report received from MARTINA Forrest with use of SBAR. Why are they here: Patient decompensated at board and care; increasingly agitated with bizarre, paranoid and delusional statements. Access center assessed and brought to ED for evaluation and stabilization. Assessment What happened this shift:Patient was pleasant and talkative. Stated he had diarrhea the then stated he had gone twice that day and that it's not normal for anyone to go poop more then once a day. He took his meds and let me do an assessment on him with no problems. He asked for a seroquel cause he was having difficulty sleeping S/I, H/I: Denies both. A/VH: Denies both. Sleep: 7.75 hrs per Sleep Assessment ADL's: Independent. Group attendance: No group today. Were Meds taken: Yes, without hesitation. Any med S/E: None observed or reported. Mental Status Exam Appearance: Clean, lama dress suit and Neal ball cap. Eye contact: Good Behavior: Fatigued in the morning, irritable. Isolates to self-sitting in the group room or the chair in his room. Speech: Clear, pressured at times. Mood: Agitated Affect: Congruent with mood. Thought process: Circumstantial Thought Content: Wanting Tramadol when he wants it. Cognition: A/O X 3 Insight: Fair Judgment: Fair Interventions PRN's used: Tramadol x 1 Therapeutic interventions: Provided 1:1 assessment, therapeutic communication and active listening, pain management for right shoulder, medication administration/education/monitoring, encouragement to attend groups, verbal deescalation, behavior monitoring and intervention as needed, limit setting, Q 15 minute safety checks. Restraints/seclusion/emergency medication: N/A Justification of Continued Inpatient Treatment: Patient is LPS conserved and requires a safe and therapeutic environment. Patient was accepted to [place] waiting for new discharge date/time.
[2020-08-08] MEDS: acetaminophen 325mg tablet PO PRN (05:50)
[2020-08-08] MEDS: naproxen 500mg tablet PO SCH ×2 (07:46→17:43)
[2020-08-08] MEDS: haloperidol 5mg tablet PO SCH ×3 (07:46→20:09)
[2020-08-08] MEDS: trihexyphenidyl HCL 5 MG tablet PO SCH ×3 (07:46→20:12)
[2020-08-08] MEDS: pantoprazole 40mg Tablet.DR PO SCH (07:46)
[2020-08-08] MEDS: LORazepam 0.5 MG tablet PO SCH ×2 (07:46→20:09)
[2020-08-08] MEDS: divalproex sod 250mg ER (24-hour) tablet PO SCH ×2 (07:47→20:10)
[2020-08-08 08:00] VITALS: BP 117/78
[2020-08-08] MEDS: traMADol 50MG tablet PO PRN ×2 (09:06→20:42)
--- NOTE | 2020-08-08 10:00 | NUR ---
Group Therapy: Process Group This Clinicians goal for this process group were as follows: (1) Ask scaling questions about Patients current anxiety, depression, and irritability symptoms as a check-in. (2) Provide psychoeducation on emotional and situational stressors. (3) Discuss thoughts and feelings that patients experience when they have experienced an emotional and/or situational stressor. (4) Provide psychoeducation on interventions, as actions patients can take to reduce feelings of emotional escalation caused by situational and emotional stressors. (5) Process Patients thoughts and reflections on this topic within the group milieu. Patient identified experiencing the following levels of anxiety, depression, and anger/irritability while present in the group milieu (0-low; 10-High). Anxiety: 0/10 Depression: 0/10 Anger/irritability: 0/10 Patient presented as properly oriented x4 during the process group. Patient was dressed in nondescript, personal clothing that were appropriate within the milieu. Patient wore a Neal Chilean baseball cap, a dark smallwood suit jacket, over a purple t-shirt and dark smallwood slacks with brown shoes. Psychomotor activity was unremarkable. Patient's thought content was clear, and concrete. Patient's thought process was clear, coherent, and linear. Patient did not contribute during the process group discussion on coping skills and interventions that one could utilize to reduce the acuity of unwanted mental health symptoms caused by stressful situations. Patient reported experiencing no anxiety, depression, or anger/irritability symptoms. This Clinician did not observe Patient responding to any internal stimuli during session. The rate, latency, and tone of Patients speech was within normal limits. Patient maintained intermittent eye contact with this Clinician. Patient presented in calm euthymic mood, with restricted affect during the process group. Patient presented as cooperative, was verbally subdued and nonobtrusive within the group milieu. This Clinician observed Patient wearing headphones during the process group. He sat behind a wall that blocked him from this Clinician's field of vision during the majority of the process group. On a few different occasions, Patient entered and left the process group room quietly. Angelo Marks MA, MANAGER OF RADIOLOGY Addendum: 08/09/20 at 0841 by Angelo TILLMAN Amended: Links added.
[2020-08-08] MEDS: quetiapine 100mg tablet PO PRN (14:27)
--- NOTE | 2020-08-08 14:50 | NUR ---
NURSING PROGRESS NOTE Legal hold: LPS Report received from MARTINA Forrest with use of SBAR. Why are they here: Patient decompensated at board and care; increasingly agitated with bizarre, paranoid and delusional statements. Access center assessed and brought to ED for evaluation and stabilization. Assessment What happened this shift: Received patient sitting up in his chair at shift change. Pt appeared slightly irritated pt states I am fine. Pt was compliant with care and AM medications. Pt ambulated the halls listening to the headphones. Pt reported right shoulder pain 3/10, his scheduled Naprosyn 500mg was administered with some effect because pt then requested his Tramadol around 0900. Pt was calm most of the morning, making random delusional statements, I dont want you to jump over a tall building like [employer]. Pt requested his Tramadol 3 hrs early and became angry, Pt went back to his room and began yelling, declined any PRN. Are you going to take my pancreas? You cant have my pancreas! then it was liver, then you cant have my T[place]eney gland. This RN then overheard pt talking with SW and he stated he was upset r/t hearing voices in the hallway that are derogatory. Pt sat in recreation room and yelled I want a shot of Ativan! Give me a shot of Ativan! Pt received PRN Seroquel 100mg with effect. Pt will be moving rooms r/t multiple disagreements with roommate. S/I, H/I: Denies both. A/VH: Denies both. Appears to be internally preoccupied. Sleep: 7.25 hrs per Sleep Assessment. No naps this shift. ADL's: Independent. Group attendance: Attended AM group, but sat in back of the room with headphones on. Were Meds taken: Yes, without incident. Any med S/E: None observed or reported. Mental Status Exam Appearance: Clean wearing purple shirt, lama dress suit and Neal Bermudian ball cap. Eye contact: Good Behavior: Irritable. Isolates to self, sitting in the group room or the chair in his room. Ambulating halls listening to headset. Speech: Clear, pressured at times. Intermittently angry. Mood: Agitated Affect: Congruent with mood. Thought process: Circumstantial Thought Content: Wanting Tramadol when he wants it. Cognition: A/O X 3 Insight: Fair Judgment: Fair Interventions PRN's used: Tramadol, Seroquel Therapeutic interventions: provided 1:1 assessment, therapeutic communication and active listening, pain management for right shoulder, medication administration/education/monitoring, encouragement to attend groups, behavior monitoring and intervention as needed, limit setting, Q 15 minute safety checks. Restraints/seclusion/emergency medication: N/A Justification of Continued Inpatient Treatment: Patient is LPS conserved and requires a safe and therapeutic environment. Patient was accepted to [facility] waiting for new discharge date/time.
--- NOTE | 2020-08-08 15:02 | NUR ---
Picked up Hardik's meds from the pharmacy for his transfer to [facility]. Total cost = $16.50. [employer] will get reimbursed from [employer] [employer]. LEXIE Squires
[2020-08-08] MEDS: quetiapine 100mg tablet PO SCH ×2 (20:10→22:50)
[2020-08-08 20:20] VITALS: BP 138/85
--- NOTE | 2020-08-08 20:47 | NUR ---
NURSING PROGRESS NOTE Legal hold: LPS Report received from MARTINA Forrest with use of SBAR. Why are they here: Patient decompensated at board and care; increasingly agitated with bizarre, paranoid and delusional statements. Access center assessed and brought to ED for evaluation and stabilization. Assessment What happened this shift: Pt was sleeping at change of shift, pt woke for evening meds and a snack. pt c/o 7/10 pain in his shoulder and was given prn tramadol. Pt states he has to sleep on his sore shoulder sometimes and thinks this is why it is hurting more than usual. Pt states he had a "good day" and is currently in a pleasant mood. S/I, H/I: Denies both. A/VH: Denies both. Appears to be internally preoccupied. Sleep: see sleep hours, pt was sleeping beginning of shift ADL's: Independent. Group attendance: no groups but attended evening snacks Were Meds taken: Yes Any med S/E: None observed or reported. Mental Status Exam Appearance: adequately groomed and dressed Eye contact: Good Behavior: sleeping Speech: Clear, pressured at times. Mood: labile, pleasant Affect: constricted Thought process: Circumstantial Thought Content: c/o shoulder pain Cognition: A/O X 3 Insight: Fair Judgment: Fair Interventions PRN's used: Tramadol, Seroquel Therapeutic interventions: provided 1:1 assessment, therapeutic communication and active listening, pain management for right shoulder, medication administration/education/monitoring, encouragement to attend groups, behavior monitoring and intervention as needed, limit setting, Q 15 minute safety checks. Restraints/seclusion/emergency medication: N/A Justification of Continued Inpatient Treatment: Patient is LPS conserved and requires a safe and therapeutic environment. Patient was accepted to [facility] waiting for new discharge date/time.
[2020-08-09] MEDS: traMADol 50MG tablet PO PRN ×2 (04:29→19:19)
[2020-08-09] MEDS: LORazepam 0.5 MG tablet PO SCH ×2 (07:25→20:17)
[2020-08-09] MEDS: haloperidol 5mg tablet PO SCH ×3 (07:25→20:17)
[2020-08-09] MEDS: divalproex sod 250mg ER (24-hour) tablet PO SCH ×2 (07:25→20:17)
[2020-08-09] MEDS: pantoprazole 40mg Tablet.DR PO SCH (07:25)
[2020-08-09] MEDS: trihexyphenidyl HCL 5 MG tablet PO SCH ×3 (07:27→20:18)
[2020-08-09] MEDS: naproxen 500mg tablet PO SCH ×2 (07:30→17:18)
[2020-08-09 07:59] VITALS: BP 113/65
[2020-08-09 08:02] VITALS: BP 113/65
--- NOTE | 2020-08-09 10:00 | NUR ---
Group Therapy: Process Group This Clinicians goals for this process group were as follows: (1) Ask scaling questions about Patients current anxiety, depression, and irritability symptoms as a check-in. (2) Share with Patients psychoeducation about the importance of being able to identify safe, and supportive people who can assist them with their mental and emotional needs. (3) Share psychoeducation on interpersonal boundaries and considerations to assist Patients in developing the ability to discern which groups and individuals will be helpful in assisting them during times of emotional escalation and crisis. (4) Engage Patients in discussion of the topics discussed within the group milieu. Patient identified experiencing the following levels of anxiety, depression, and anger/irritability while present in the group milieu (0-low; 10-High). Anxiety: 2/10 Depression: 2-3/10 Anger/irritability: 0/10 Patient presented as properly oriented x4 during the process group. Patient was dressed in nondescript, personal clothing that were appropriate within the milieu. He wore a Receept baseball hat, a dark smallwood suit jacket, over a purple t-shirt, with dark smallwood slacks. Psychomotor activity was unremarkable. Patient's thought content was clear, and concrete. Patient's thought process varied from being clear, coherent, and linear, to being marked by idiosyncratic, delusional thoughts. More specifically, another Patient was speaking and Patient spoke while this other Patient was speaking and stated, "But what do you think about Glnyn Munson?" This Clinician did not observe Patient responding to any internal stimuli during session. The rate, latency, and tone of Patients speech was within normal limits. Patient acknowledged something that this Clinician also observed; namely, that his speech was slightly slurred. Patient reported that this was likely a side effect of his medication. Patient maintained regular eye contact with this Clinician. Patient presented in calm euthymic mood, with restricted affect during the process group. Patient presented as cooperative, verbally subdued, and nonobtrusive within the group milieu. Patient sat quietly in the back of the process group and occasionally left the milieu on his on accord--returning on several occasions before leaving for a final time approximately 35 minutes into the process group. Patient did not participate verbally during the conversation on interpersonal boundaries and circles of trust. Angelo Marks MA, MANAGER TRACK Addendum: 08/09/20 at 1157 by Angelo TILLMAN Amended: Links added.
[2020-08-09] MEDS: trihexyphenidyl HCL 5 MG tablet PO PRN (10:25)
--- NOTE | 2020-08-09 12:05 | NUR ---
F/u (08/09): Pt PO 75-100% avg meals meeting needs. LBM 08/08. No nutrition concerns at this time. Will continue to monitor. Recommend: 1. continue regular diet 2. routine bowel care 3. wt per rx Addendum: 08/09/20 at [address] Amended: Links added.
--- NOTE | 2020-08-09 15:03 | NUR ---
NURSING PROGRESS NOTE Legal hold: LPS Report received from MARTINA Fish with use of SBAR. Why are they here: Patient decompensated at board and care; increasingly agitated with bizarre, paranoid and delusional statements. Access center assessed and brought to ED for evaluation and stabilization. Assessment What happened this shift: Received patient awake sitting in the recreation room watching TV. Pt is pleasant, says good morning and continues to watch TV. Pt later requested a cup of coffee and AM meds were administered at this time. This is the first out of the 3 mornings pt has not requested a Tramadol. Pt attended breakfast and AM group. Pt did request a PRN around 1000 because I cant stay awake. When questioned further pt states my eyes are twitchy. PRN Artane was administered with effect. Pt is pleasant and calm today joking around with staff stating I need a new armband, but you have to give me $1000. Pt is less fixated on his shoulder pain. 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 Pt is visible on unit after lunch then returns to his room for a long nap. Pt reports no complaints with his new roommate. S/I, H/I: Denies both. A/VH: Denies both. Sleep: 7 hrs per Sleep Assessment. Long nap in afternoon. ADL's: Independent. Group attendance: Attended AM group. Were Meds taken: Yes, without incident. Any med S/E: None observed or reported. Mental Status Exam Appearance: Clean wearing purple shirt, lama dress suit and Neal Tongan ball cap. Eye contact: Good Behavior: Pleasant, calm. Visible on unit, socializes minimally with peers. Joking with staff. Speech: Clear, audible, normal rate/rhythm. Mood: Euthymic Affect: Congruent with mood. Thought process: Circumstantial, a little delusional. Thought Content: Situational Cognition: A/O X 3 Insight: Fair Judgment: Fair Interventions PRN's used: Artane Therapeutic interventions: provided 1:1 assessment, therapeutic communication and active listening, pain management for right shoulder, medication administration/education/monitoring, encouragement to attend groups, behavior monitoring and intervention as needed, limit setting, Q 15 minute safety checks. Restraints/seclusion/emergency medication: N/A Justification of Continued Inpatient Treatment: Patient is LPS conserved and requires a safe and therapeutic environment. Patient was accepted to [facility] waiting for new discharge date/time.
--- NOTE | 2020-08-09 15:57 | NUR ---
NURSING PROGRESS NOTE Legal hold: LPS Report received from MARTINA Fish with use of SBAR. Why are they here: Patient decompensated at board and care; increasingly agitated with bizarre, paranoid and delusional statements. Access center assessed and brought to ED for evaluation and stabilization. Assessment What happened this shift: Received patient awake sitting in the recreation room watching TV. Pt is pleasant, says good morning and continues to watch TV. Pt later requested a cup of coffee and AM meds were administered at this time. This is the first out of the 3 mornings pt hasnt asked for a Tramadol. Pt attended breakfast and AM group. Pt did request a PRN around 1000 because I cant stay awake. When questioned further pt states my eyes are twitchy. PRN Artane was administered with effect. Pt is pleasant and calm today joking around with staff stating I need a new armband, but you have to give me $1000. Pt is less fixated on his shoulder pain. 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 Pt is visible on unit after lunch then returns to his room for a long nap. Pt reports no complaints with his new roommate. S/I, H/I: Denies both. A/VH: Denies both. Sleep: 7 hrs per Sleep Assessment. Long nap in afternoon. ADL's: Independent. Group attendance: Attended AM group. Were Meds taken: Yes, without incident. Any med S/E: None observed or reported. Mental Status Exam Appearance: Clean wearing purple shirt, lama dress suit and Neal ball cap. Eye contact: Good Behavior: Pleasant, calm. Visible on unit, socializes minimally with peers. Joking with staff. Speech: Clear, audible, normal rate/rhythm. Mood: Euthymic Affect: Congruent with mood. Thought process: Circumstantial, a little delusional. Thought Content: Situational Cognition: A/O X 3 Insight: Fair Judgment: Fair Interventions PRN's used: Artane Therapeutic interventions: provided 1:1 assessment, therapeutic communication and active listening, pain management for right shoulder, medication administration/education/monitoring, encouragement to attend groups, behavior monitoring and intervention as needed, limit setting, Q 15 minute safety checks. Restraints/seclusion/emergency medication: N/A Justification of Continued Inpatient Treatment: Patient is LPS conserved and requires a safe and therapeutic environment. Patient was accepted to [facility] waiting for new discharge date/time.
[2020-08-09 19:55] VITALS: BP 134/96
[2020-08-09] MEDS: quetiapine 100mg tablet PO SCH ×2 (20:17→21:00)
--- NOTE | 2020-08-09 22:00 | NUR ---
NURSING PROGRESS NOTE Legal hold: LPS Report received from MARTINA Forrest with use of SBAR. Why are they here: Patient decompensated at board and care; increasingly agitated with bizarre, paranoid and delusional statements. Access center assessed and brought to ED for evaluation and stabilization. Assessment What happened this shift: Pt was watching tv in the group room at change of shift. He is in a pleasant mood. Pt c/o shoulder pain and requested prn ultram with good effect. pt asked if the doctor would like to buy his watch, considering he put a new watch band on, he would like $8 for the watch. Explained to pt that the doctor would probably not be allowed to purchase his watch although it is a very nice watch. Pt states he has some people he owes money to and this is why he wants to sell his watch. Explained to patient staff are not allowed to purchase patient belongings. Pt is understanding. Pt had trouble falling asleep tonight and requested repeat dose of trazadone. S/I, H/I: Denies A/VH: Denies Sleep: see sleep hours ADL's: Independent. Group attendance: no evening groups, socialized with others watching tv Were Meds taken: Yes Any med S/E: None observed or reported. Mental Status Exam Appearance: Clean wearing purple shirt, lama dress suit and Neal ball cap. Eye contact: Good Behavior: Pleasant, calm. Visible on unit, socializes minimally with peers Speech: Clear, audible, normal rate/rhythm. Mood: Euthymic Affect: Congruent with mood. Thought process: Circumstantial, a little delusional. Thought Content: talking about making money future oriented Cognition: A/O X 3 Insight: Fair Judgment: Fair Interventions PRN's used: trazadone, ultram Therapeutic interventions: provided 1:1 assessment, therapeutic communication and active listening, pain management for right shoulder, medication administration/education/monitoring, encouragement to attend groups, behavior monitoring and intervention as needed, limit setting, Q 15 minute safety checks. Restraints/seclusion/emergency medication: N/A Justification of Continued Inpatient Treatment: Patient is LPS conserved and requires a safe and therapeutic environment. Patient was accepted to [facility] waiting for new discharge date/time.
[2020-08-10] MEDS: divalproex sod 250mg ER (24-hour) tablet PO SCH ×2 (07:51→20:00)
[2020-08-10] MEDS: LORazepam 0.5 MG tablet PO SCH ×2 (07:51→20:00)
[2020-08-10] MEDS: trihexyphenidyl HCL 5 MG tablet PO SCH ×3 (07:52→20:00)
[2020-08-10] MEDS: pantoprazole 40mg Tablet.DR PO SCH (07:52)
[2020-08-10] MEDS: haloperidol 5mg tablet PO SCH ×3 (07:52→21:00)
[2020-08-10] MEDS: naproxen 500mg tablet PO SCH ×2 (08:04→17:45)
[2020-08-10 08:51] VITALS: BP 117/72
[2020-08-10] MEDS: traMADol 50MG tablet PO PRN ×3 (09:01→22:55)
--- NOTE | 2020-08-10 10:00 | NUR ---
Group Therapy: Process Group This Clinicians goals for this process group were as follows: (1) Ask scaling questions about Patients current anxiety, depression, and irritability symptoms as a check-in. (2) Share psychoeducation about automatic thoughts and cognitive distortions. (3) Share psychoeducation on CBT thought-stopping and, thought-reframing. (4) Discuss strategies for identifying negative, unhelpful, and/or irrational thoughts as quickly as possible to avoid unwanted escalation of mental health symptoms. (5) Process Clients thoughts and reflections on this topic within the group milieu. Patient presented as properly oriented x4 during the process group. Patient was dressed in nondescript, personal clothing that were appropriate within the milieu. He wore a [employer] Baseball hat, a dark smallwood suit jacket, over a purple t-shirt, with dark smallwood slacks. Psychomotor activity was unremarkable. This Clinician did not observe Patient responding to any internal stimuli during session. Aside from acknowledging this Clinician's greeting, by saying, "Hi," as he entered the group milieu approximately 15 minutes after the process group began, Patient was nonverbal--quietly sitting, and listening in the back of the group room. Patient maintained intermittent eye contact with this Clinician. Patient presented in calm euthymic mood, with restricted affect during the process group. Patient was verbally subdued, and nonobtrusive within the group milieu. Due to Patient's delayed arrival to the process group, this Clinician was unable to ask Patient scaling questions about his impression of his anxiety, depression, and anger/irritability symptoms. Furthermore, as he was engaged in discussion of the topic at hand, he was unable to involve Patient in the discussion of thinking errors, and CBT interventions such as thought-stopping and thought-reframing before he quietly left the group room approximately 5 minutes after he arrived. Angelo Marks MA, [facility] Addendum: 08/10/20 at 1146 by Angelo Marks Amended: Links added.
--- NOTE | 2020-08-10 14:59 | NUR ---
DISCHARGED CANCELLED Hardik will NOT be discharging tomorrow. [facility] did not open today as planned. They are having licensing issues and it is unknown when that will be resolved. LEXIE Squires
--- NOTE | 2020-08-10 15:29 | NUR ---
Informed Hardik that he will not be discharging tomorrow as [facility] did not open. He got upset with script writer and stated it is script writer's fault because script writer does not like him. Informed him that is not true and that [facility] did not open which has nothing to do with either of us. He continued to blame script writer and was upset and paranoid. LEXIE Squires
--- NOTE | 2020-08-10 17:58 | NUR ---
NURSING PROGRESS NOTE Legal hold: LPS Report received from MARTINA Fish with use of SBAR. Why are they here: Patient decompensated at board and care; increasingly agitated with bizarre, paranoid and delusional statements. Access center assessed and brought to ED for evaluation and stabilization. Assessment What happened this shift: Pt. awake at start of shift and in the hallway. Pt. approaches this RN and requests coffee. Pt. took all medications and ate all meals in the community room. 1:1 done at bedside. Pt. denies SI/HI, A/V hallucinations. Pt. reports hes not doing so well, when RN asked if he wanted to talk about it, pt., pt. stated no, its personal. RN asked pt. what his goals were for the day, and pt. stated that his goals were to not get into fights with other patients and staff. Pt. was calm and cooperative the entire day. Pt. twice asked for Tramadol for right shoulder pain and received with good effect. S/I, H/I: Denies both. A/VH: Denies both. Sleep: Pt. did not sleep during day shift. ADL's: Independent. Group attendance: No Were Meds taken: Yes Any med S/E: Denies Mental Status Exam Appearance: Clean wearing purple shirt, lama dress suit and Neal Czech ball cap. Eye contact: Good Behavior: Pleasant, calm, visible on unit, socializing minimally with peers Speech: Clear, audible, normal rate/rhythm. Mood: Euthymic Affect: Congruent with mood. Thought process: Circumstantial. Linear. Thought Content: coffee, medication. Cognition: A/O X 3 Insight: Fair Judgment: Fair Interventions PRN's used: Tramadol x2 Therapeutic interventions: provided 1:1 assessment, therapeutic communication and active listening, pain management for right shoulder, medication administration/education/monitoring, encouragement to attend groups, behavior monitoring and intervention as needed, limit setting, Q 15 minute safety checks. Restraints/seclusion/emergency medication: N/A Justification of Continued Inpatient Treatment: Patient is LPS conserved and requires a safe and therapeutic environment. Patient was accepted to [facility] waiting for new discharge date/time.
[2020-08-10] MEDS: acetaminophen 325mg tablet PO PRN (19:42)
[2020-08-10 19:47] VITALS: BP 132/90
[2020-08-10] MEDS: quetiapine 100mg tablet PO SCH (22:55)
--- NOTE | 2020-08-10 22:57 | NUR ---
NURSING PROGRESS NOTE Legal hold: LPS Report received from MARTINA Brock with use of SBAR. Why are they here: Patient decompensated at board and care; increasingly agitated with bizarre, paranoid and delusional statements. Access center assessed and brought to ED for evaluation and stabilization. Assessment What happened this shift: Pt was watching tv in the Rec room at change of shift. Pt was pleasant at the beginning of shift talking about his favorite dessert being coffee. Pt requested tramadol and was told it was too soon for tramadol as he had some the end of the previous shift. Pt became agitated and accused staff of taking his tramadol. Explained to patient it is scheduled and offered patient tylenol. pt became agitated and refused any meds then refused schedule meds. Pt walked away and later returned and said "I will tell you when I'm good and ready to take my meds!" Pt showered and watched tv before going to bed without taking meds. Requested charge nurse to attempt to give patient meds and patient took meds. S/I, H/I: Denies both. A/VH: Denies both. Sleep: see sleep hours ADL's: Independent. Group attendance: No Were Meds taken: Yes Any med S/E: Denies Mental Status Exam Appearance: Clean wearing purple shirt, lama dress suit and Neal ball cap. Eye contact: Good Behavior: Pleasant, calm, became agitated when he couldnt have tramadol early Speech: Clear, audible, normal rate/rhythm. Mood: Euthymic Affect: Congruent with mood. Thought process: Circumstantial. Linear. Thought Content: coffee, medication. Cognition: A/O X 3 Insight: Fair Judgment: Fair Interventions PRN's used: Tramadol, Therapeutic interventions: provided 1:1 assessment, therapeutic communication and active listening, pain management for right shoulder, medication administration/education/monitoring, encouragement to attend groups, behavior monitoring and intervention as needed, limit setting, Q 15 minute safety checks. Restraints/seclusion/emergency medication: N/A Justification of Continued Inpatient Treatment: Patient is LPS conserved and requires a safe and therapeutic environment. Patient was accepted to [facility] waiting for new discharge date/time.
[2020-08-11 07:52] VITALS: BP 105/77
[2020-08-11] MEDS: divalproex sod 250mg ER (24-hour) tablet PO SCH ×2 (08:19→20:11)
[2020-08-11] MEDS: haloperidol 5mg tablet PO SCH ×3 (08:20→20:09)
[2020-08-11] MEDS: pantoprazole 40mg Tablet.DR PO SCH (08:20)
[2020-08-11] MEDS: LORazepam 0.5 MG tablet PO SCH ×2 (08:20→20:09)
[2020-08-11] MEDS: naproxen 500mg tablet PO SCH ×2 (08:20→17:49)
[2020-08-11] MEDS: trihexyphenidyl HCL 5 MG tablet PO SCH ×3 (08:25→20:10)
[2020-08-11] MEDS: traMADol 50MG tablet PO PRN ×2 (09:08→19:19)
--- NOTE | 2020-08-11 10:00 | NUR ---
Group Therapy: Process Group This Clinicians goals for this process group were as follows: (1) Ask scaling questions about Patients current anxiety, depression, and irritability symptoms as a check-in. (2) Share psychoeducation about self-efficacy, and ego strength. (3) Provide psychoeducation on KarPromedior Drama triangleVictim, Persecutor, Rescuer dynamic. (4) Share psychoeducation on developing positive ego strengthpositive affirmations, positive self-talk, transitioning from a victim of circumstances to a survivor of circumstances. (5) Process Clients thoughts and reflections on this topic within the group milieu. Patient identified experiencing the following levels of anxiety, depression, and anger/irritability while present in the group milieu (0-low; 10-High). Anxiety: 08/04 Depression: 09/03 Anger/irritability: 06/03 Patient presented as properly oriented x4 during the process group. Patient was dressed in a [employer] baseball hat, a dark smallwood suit jacket, over a purple shirt, along with dark smallwood slacks that were appropriate within the milieu. Psychomotor activity was unremarkable. Patient's thought content was clear, and concrete. Patient's thought process was clear, coherent, and linear. This Clinician did not observe Patient responding to any internal stimuli during session. The rate, latency, and tone of Patients speech was within normal limits. Patient maintained intermittent eye contact with this Clinician. Patient presented in calm euthymic mood, with restricted affect during the process group. Patient presented as cooperative, verbally subdued, and nonobtrusive within the group milieu. He frequently entered and left the group milieu, quietly, throughout the hour of the process group. Patient reported experiencing high anxiety, depression, and anger/irritability symptoms, which he reported was due to his discharge being canceled, stating that it was, "Jammed up." This Clinician engaged in attempts to validate Patient's frustration and normalize his feelings in appropriate ways. On one occasion, in the context of having patients identify positive affirmations that they could say about themselves, this Clinician asked Patient, "If he loved himself." to which Patient honestly answered, "No." This Clinician briefly paused to praise Patient's style of dress, which was unique to him as a way of therapeutic encouragement--drawing on rapport that he has established with this Clinician. At the end of the process group, Patient approached this Clinician and gave him a friendly "fist bump," before departing the process group. Angelo Marks MA, COUNTER INTELLIGENCE TECHNICIAN Addendum: 08/11/20 at 1149 by Angelo Marks SS Amended: Links added.
[2020-08-11] MEDS: quetiapine 100mg tablet PO PRN (10:40)
--- NOTE | 2020-08-11 17:43 | NUR ---
Legal hold: LPS Report received from MARTINA Fish with use of SBAR. Why are they here: Patient decompensated at board and care; increasingly agitated with bizarre, paranoid and delusional statements. Access center assessed and brought to ED for evaluation and stabilization. Assessment What happened this shift: Pt. awake at start of shift and in the hallway. Pt. approaches this RN and requests coffee. Pt. took all medications and ate all meals in the community room. 1:1 done at bedside. Pt. denies SI/HI, A/V hallucinations. Pt. reports he is frustrated that he hasnt been discharged yet. RN affirmed pt.s feelings and discussed ways to cope. Pt. requested PRN Seroquil and received 100mg po with good effect. Pt. received Tramadol x1 for right shoulder pain with good effect. Pt. was socially withdrawn with peers. Pt. overheard talking to himself at times. Pt. seen watching TV in Rec room. Pt. found sitting in chair in his room or napping intermittently. S/I, H/I: Denies A/VH: Denies Sleep: Pt. napped intermittently in the afternoon. ADL's: Independent. Group attendance: No Were Meds taken: Yes Any med S/E: Denies Mental Status Exam Appearance: Clean wearing purple shirt, lama dress suit and Neal ball cap. Eye contact: Good Behavior: Socially withdrawn, visible on unit, socializing minimally with peers, isolating to room at times Speech: Clear, audible, normal rate/rhythm. Mood: Anxious Affect: Congruent with mood. Thought process: Circumstantial. Linear. Thought Content: Focused on discharge. Cognition: A/O X 3 Insight: Fair Judgment: Fair Interventions PRN's used: Tramadol x1, Seroquel x1 Therapeutic interventions: provided 1:1 assessment, therapeutic communication and active listening, pain management for right shoulder, medication administration/education/monitoring, encouragement to attend groups, behavior monitoring and intervention as needed, limit setting, Q 15 minute safety checks. Restraints/seclusion/emergency medication: N/A Justification of Continued Inpatient Treatment: Patient is LPS conserved and requires a safe and therapeutic environment. Patient was accepted to [facility] waiting for new discharge date/time.
[2020-08-11 19:00] VITALS: BP 113/73
[2020-08-11] MEDS: quetiapine 100mg tablet PO SCH (22:01)
[2020-08-12] MEDS: quetiapine 100mg tablet PO SCH (00:27)
--- NOTE | 2020-08-12 00:51 | NUR ---
NURSING PROGRESS NOTE Legal hold: LPS Report received from MARTINA Skinner with use of SBAR. Why are they here: Patient decompensated at board and care; increasingly agitated with bizarre, paranoid and delusional statements. Access center assessed and brought to ED for evaluation and stabilization. Assessment What happened this shift: Pt walking around the unit, spending most time in the rec room. Pt suspicious and paranoid of this nurse during when he initial approached to discuss "a fucking woman who put cake on my jacket. What am I supposed to do?" It was determined pt had given his cake to a peer but it somehow fell onto his jacket while passing it over, and the pt felt it was intentional and the peer "wanted to ruin my jacket on purpose." This RN suggested not giving cake to peers (acknowledged it was a kind gesture) and to perhaps sit in a different spot next meal. This RN also offered to wash the jacket. Pt took multiple steps back from this nurse after making the above response and said "Oh so you are with her then? Why are smiling? Do you not care?" RN inquired whether pt may be feeling anxious or like he needs a PRN but pt declined and promptly returned to rec room to continue listening to headphones. 30 minutes later, this RN approached the pt to attempt his assessment and he was pleasant and receptive to care. Denied all symptoms, except that his right shoulder pain is continuous. Pt doesn't appear to be responding to IS, but at times makes long pauses before replying, which could be indicative of thought blocking. Pt medication compliant but had difficulty falling asleep this evening, requiring his repeat dose of Seroquel. S/I, H/I: Denies A/VH: Denies Sleep: See sleep hours ADL's: Independent Group attendance: No Were Meds taken: Yes Any med S/E: Not observed nor reported Mental Status Exam Appearance: Clean, wearing personal attire and nonskid socks Eye contact: Good Behavior: listening to headphones, pacing the halls, watching TV, attending snack Speech: Clear, audible, normal rate/rhythm. Mood: "Fine:, Pt presents as labile Affect: Flat Thought process: Paranoid, Can answer direct questions Thought Content: Cleaning his jacket, snacks, shoulder pain Cognition: A/Ox3 Insight: Fair Judgment: Fair Interventions PRN's used: Tramadol 50mg, Seroquel 100mg x2 Therapeutic interventions: provided 1:1 assessment, therapeutic communication and active listening, pain management for right shoulder, medication administration/education/monitoring, encouragement to attend groups, behavior monitoring and intervention as needed, limit setting, Q 15 minute safety checks. Restraints/seclusion/emergency medication: N/A Justification of Continued Inpatient Treatment: Patient is LPS conserved and requires a safe and therapeutic environment. [facility] was accepted to [facility], awaiting discharge date/time.
[2020-08-12] MEDS: trihexyphenidyl HCL 5 MG tablet PO SCH ×3 (07:41→21:09)
[2020-08-12] MEDS: haloperidol 5mg tablet PO SCH ×3 (07:41→21:08)
[2020-08-12] MEDS: divalproex sod 250mg ER (24-hour) tablet PO SCH ×2 (07:41→21:08)
[2020-08-12] MEDS: pantoprazole 40mg Tablet.DR PO SCH (07:41)
[2020-08-12] MEDS: LORazepam 0.5 MG tablet PO SCH ×2 (07:41→21:09)
[2020-08-12] MEDS: naproxen 500mg tablet PO SCH ×2 (07:41→16:56)
[2020-08-12 07:53] VITALS: BP 110/77
--- NOTE | 2020-08-12 15:17 | NUR ---
Nursing Progress Note: Legal hold: LPS Report received from Veronica Jones RN with use of SBAR. Why are they here: Pt decompensated at board and care; increasingly agitated with bizarre, paranoid and delusional statements. Access center assessed and brought to ED for evaluation and stabilization. Assessment What happened this shift: Received pt. up in the Recreation Room at the beginning of the shift, he greeted this investment underwriter appropriately. Pt. presents as cooperative, slightly restless, and guarded. 1:1 completed, pt. denies all MH s/s, except admits that at times he becomes agitated, states, "My roommate wants the door closed!" This investment underwriter encouraged pt. to let staff know if he begins to feel agitated or anxious this shift and he reported understanding. Pt. continues to make occasional delusional statements throughout the shift. He proceeds to tell this investment underwriter about a nightmare he had last night about a giant kangaroo rat, states, "Those things are big!" Pt. remains up throughout the shift interacting appropriately with others, no agitation exhibited or redirection required. S/I, H/I: Denies A/VH: Denies, does not appear to be internally preoccupied Sleep: Pt reports he did not sleep well r/t a nightmare as described above, sleep hours are 6 ADL's: Requires some direction/redirection Group attendance: No Were meds taken: Yes Any med S/E: None Mental Status Exam Appearance: Neat and appropriately dressed Eye contact: Good Behavior: Cooperative, slightly restless, and guarded Speech: Articulate with a slow drawl. Mood: Pleasant Affect: Labile at times Thought process: Poverty of thought with some disorganization Thought Content: Occasional delusional statements Cognition: A&O X3 (reports he is here because he is homeless) Insight: Poor Judgment: Fair Interventions PRN's used: None Therapeutic interventions: Maintained a safe and therapeutic environment, ensured contract for safety, provided clear and simple instructions, attempted to orient to reality, provided direction and positive reassurance as needed, monitored behaviors and need for intervention, encouraged pt. to notify staff if feeling agitated/anxious or having a disagreement, and maintained Q 15min safety checks. Restraints/seclusion/emergency medication: N/A Justification of Continued Inpatient Treatment: Patient is LPS conserved and requires a safe and therapeutic environment until appropriate placement found.
[2020-08-12] MEDS: traMADol 50MG tablet PO PRN (18:32)
[2020-08-12 19:00] VITALS: BP 122/84
[2020-08-13] MEDS: LORazepam 1 MG tablet PO PRN (02:00)
--- NOTE | 2020-08-13 05:08 | NUR ---
NURSING PROGRESS NOTE Legal hold: LPS Report received from RN with use of SBAR. Why are they here: Patient decompensated at board and care; increasingly agitated with bizarre, paranoid and delusional statements. Access center assessed and brought to ED for evaluation and stabilization. Assessment What happened this shift: Patient observed pacing the unit at the beginning of shift. He quickly became agitated with staff while staff attempted to interact with him. Concrete Placement Equipment Operator offered PRN Ativan but he refused. It appears he may have been responding to internal stimuli. Patient waited in his room until HS snack and quickly returned to bed post snack. Patient cooperative with with HS med pass. Patient observed sleeping without difficulty and early AM woke and request medication. PRN Ativan provided but little effect. Patient requested "shot of Haldol," and brief writer questioned why he felt he needed Haldol. He responded, "are you getting a little nosey." He then refused repeat dose of Ativan. Patient continued to ask why brief writer would not give "a shot of Haldol." Concrete Placement Equipment Operator explained it'd be a doctor's decision and he appears to be settled at this time. Patient was provided his "chayo charm" upon request and is pacing the unit wearing headphones without disturbing peers. S/I, H/I: Denies A/VH: Denies Sleep: Refer to sleep hours ADL's: Independent Group attendance: N/A Were Meds taken: Yes Any med S/E: Not observed nor reported Mental Status Exam Appearance: Clean, wearing personal attire and nonskid socks Eye contact: Good Behavior: Agitated, isolative Speech: Clear, audible, normal rate/rhythm. Mood: Labile Affect: Flat Thought process: Circumstantial Thought Content: Wants Haldol injection, irritable with staff engaging Cognition: A/Ox3 Insight: Fair Judgment: Fair Interventions PRN's used: Ativan Therapeutic interventions: provided 1:1 assessment, therapeutic communication and active listening, pain management for right shoulder, medication administration/education/monitoring, encouragement to attend groups, behavior monitoring and intervention as needed, limit setting, Q 15 minute safety checks. Restraints/seclusion/emergency medication: N/A Justification of Continued Inpatient Treatment: Patient is LPS conserved and requires a safe and therapeutic environment. Patient was accepted to [facility], awaiting discharge date/time.
[2020-08-13] MEDS: haloperidol 5mg tablet PO SCH ×3 (07:56→20:26)
[2020-08-13] MEDS: LORazepam 0.5 MG tablet PO SCH ×2 (07:56→20:26)
[2020-08-13] MEDS: trihexyphenidyl HCL 5 MG tablet PO SCH ×3 (07:57→20:26)
[2020-08-13] MEDS: divalproex sod 250mg ER (24-hour) tablet PO SCH ×2 (07:57→20:27)
[2020-08-13] MEDS: pantoprazole 40mg Tablet.DR PO SCH (07:57)
[2020-08-13 08:00] VITALS: BP 118/80
[2020-08-13] MEDS: naproxen 500mg tablet PO SCH ×2 (08:34→17:12)
[2020-08-13] MEDS: acetaminophen 325mg tablet PO PRN (10:23)
--- NOTE | 2020-08-13 17:55 | NUR ---
NURSING PROGRESS NOTE Legal hold: LPS Report received from RN with use of SBAR. Why are they here: Patient decompensated at board and care; increasingly agitated with bizarre, paranoid and delusional statements. Access center assessed and brought to ED for evaluation and stabilization. Assessment What happened this shift: Pt was pleasant and cooperative. He requested meds at his scheduled times. He sat and watched tv. RN was sitting with pt in tv room and an inappropriate scene came on in which he got up and asked to change the channel. He talked to this RN about missing his grandpa. He requested something for elbow pain and Tylenol prn was given as Naproxen is scheduled. He did not have any altercations or outbursts. He denies MH symptoms and talked about being ready to leave but his only friends are the staff here S/I, H/I: Pt Denies A/VH: Pt Denies Sleep: No naps ADL's: Independent Group attendance: Yes for a portion of it Were Meds taken: Yes Any med S/E: None noted Mental Status Exam Appearance: Wearing his suit coat, shirt, pants and nonskid socks Eye contact: Direct Behavior: Pleasant , cooperative Speech: WNL, slightly mumbled Mood: Fine Affect: Happy Thought process: Linear Thought Content: Circumstantial with delusions Cognition: Alert Insight: Fair Judgment: Fair Interventions PRN's used: Tylenol Therapeutic interventions: provided 1:1 assessment, therapeutic communication and active listening, pain management for right shoulder, medication administration/education/monitoring, encouragement to attend groups, behavior monitoring and intervention as needed, limit setting, Q 15 minute safety checks. Restraints/seclusion/emergency medication: N/A Justification of Continued Inpatient Treatment: Patient is LPS conserved and requires a safe and therapeutic environment. Patient was accepted to [facility], awaiting discharge date/time.
[2020-08-13 19:32] VITALS: BP 139/93
[2020-08-13] MEDS: quetiapine 100mg tablet PO SCH (20:27)
[2020-08-14] MEDS ORDERED: OLANZapine **IM** 10 mg inj. IM ONE (04:30)
[2020-08-14] MEDS ORDERED: LORazepam 2 mg/ml vial IM ONE (04:30)
[2020-08-14] MEDS: LORazepam 2 mg/ml vial ONE (04:35)
[2020-08-14] MEDS: acetaminophen 325mg tablet PO PRN (04:58)
--- NOTE | 2020-08-14 05:06 | NUR ---
NURSING PROGRESS NOTE Legal hold: LPS Report received from RN with use of SBAR. Why are they here: Patient decompensated at board and care; increasingly agitated with bizarre, paranoid and delusional statements. Access center assessed and brought to ED for evaluation and stabilization. Assessment What happened this shift: Patient observed sitting in the group room and isolating to himself at the beginning of shift. Pleasant and cooperative with care at the beginning of shift; compliant with medication. Denies SI, HI, A/VH but appears preoccupied. Patient participated in HS snack and paced the hallway prior to bed. Patient appeared to be sleeping without difficulty and woke approximately 0340. Patient missed the toilet and urinated on his pant and became agitated toward staff. He came out of his room several times to yell at [facility] as he believes it was her fault he missed the toilet. When staffed asked for him to lower his voice he became more agitated and began making derogatory comments toward women. Patient was asked to go back into his room and when explained security would need to come up if he couldn't cooperate he responded, "do it get security, call the doctor and give me a shot." He then returned to his room and male staff able to calm him while CRN called litigation manager doctors and received IM Ativan and Zyprexa orders. At this time patient has not needed it as he has remained calm and listening to headphones. S/I, H/I: Denies A/VH: Denies Sleep: Refer to sleep hours ADL's: Independent Group attendance: N/A Were Meds taken: Yes Any med S/E: Not observed nor reported Mental Status Exam Appearance: Clean, wearing personal attire and nonskid socks Eye contact: Good Behavior: Agitated, isolative Speech: Clear, audible, normal rate/rhythm. Mood: Labile Affect: Flat Thought process: Paranoid delusions Thought Content: Meeting needs, staff causing him to miss the toilet, not liking women Cognition: A/Ox3 Insight: Fair Judgment: Fair Interventions PRN's used: None at this time Therapeutic interventions: provided 1:1 assessment, therapeutic communication and active listening, pain management for right shoulder, medication administration/education/monitoring, encouragement to attend groups, behavior monitoring and intervention as needed, limit setting, Q 15 minute safety checks. Restraints/seclusion/emergency medication: N/A Justification of Continued Inpatient Treatment: Patient is LPS conserved and requires a safe and therapeutic environment. [facility] was [facility], awaiting discharge date/time.
[2020-08-14] MEDS: pantoprazole 40mg Tablet.DR PO SCH (07:15)
[2020-08-14] MEDS: LORazepam 0.5 MG tablet PO SCH ×2 (07:15→17:10)
[2020-08-14] MEDS: haloperidol 5mg tablet PO SCH ×3 (07:15→20:46)
[2020-08-14] MEDS: divalproex sod 250mg ER (24-hour) tablet PO SCH ×2 (07:15→20:46)
[2020-08-14] MEDS: trihexyphenidyl HCL 5 MG tablet PO SCH ×3 (07:15→20:45)
[2020-08-14 07:23] VITALS: BP 127/77
[2020-08-14] MEDS: naproxen 500mg tablet PO SCH ×2 (07:33→17:10)
--- NOTE | 2020-08-14 14:50 | NUR ---
Nursing Progress Note: Legal hold: LPS Report received from Veronica Jones RN with use of SBAR. Why are they here: Pt decompensated at board and care; increasingly agitated with bizarre, paranoid and delusional statements. Access center assessed and brought to ED for evaluation and stabilization. Assessment What happened this shift: Pt wanted his meds before breakfast. Pt stated he didn't sleep very well. reported waking up early, having poor balance and missing the toilet. Pt stated, "maybe someday someone will help me with that." Told pt that he normally is able to go to the toilet on his own without difficulty. Positive reinforcement provided. Discussed possibility that his HS meds had made him groggy, pt agreed. At lunchtime, pt told this RN that he was not wearing his jacket because he had accidently dipped it in his gravy,(pointed to his mashed potatoes.) Pt admitted to feeling a little depressed today. Asked pt why he was depressed, he replied, "because of the workload." Asked him what work load he was referring to. Pt appeared to be thought blocking then responded, "just what's on my mind." Asked pt what was on his mind-more thought blocking, "I don't know." Asked pt about AH/VH. Pt stated, "You don't have to ask me those questions, I'm normal like you are." Pt listened to the radio headphones and paced the hallway frequently today. Pt also spends time sitting in the chair by the window in his room. No unsafe behaviors noted. Pt's BID Ativan 1.5 mg times were changed from BID to BID @ 0800 & 1700. He has a new order for Seroquel 100 mg daily at 1900 and Seroquel 100 mg HS PRN. S/I, H/I: Pt denies A/VH: Pt denies, did not appear to be responding to internal stimuli. Sleep: Pt reported not sleeping well, slept 6.75 hours per noc shift report. ADL's: Independent Group attendance: No Were meds taken: Yes Any med S/E: Pt c/o night time grogginess that led to him urinating on the floor in his bathroom last night. Mental Status Exam Appearance: Tall, sallow-skinned man with holcomb and moustache wearing slacks, a long sleeved collared navy-shirt, a baseball cap and hiking boots. Eye contact: Good Behavior: Cooperative, listens to radio headphones, watches TV, spends time in chair in room. Speech: Clear, audible, speaks in a slow drawl. Mood: Depressed Affect: Blunted Thought process: Thought blocking,poverty of thought, reality distortion Thought Content: He has a lot on his mind (though unable to verbalize what is on his mind,) he is normal. Cognition: A/O x 3, disorganized as to situation. Insight: Poor Judgment: Fair Interventions PRN's used: None Therapeutic interventions: 1:1 assessment, therapeutic conversation and communication, active listening, medication administration/education/monitoring, encouragement to attend groups, behavior monitoring and intervention; reality orientation, positive reinforcement, maintained Q 15 minute safety checks. Restraints/seclusion/emergency medication: N/A Justification of Continued Inpatient Treatment: Patient is LPS conserved and requires a safe and therapeutic environment until appropriate placement found.
[2020-08-14 19:49] VITALS: BP 114/77
[2020-08-14] MEDS: quetiapine 100mg tablet PO SCH (20:46)
--- NOTE | 2020-08-15 05:18 | NUR ---
NURSING PROGRESS NOTE Legal hold: LPS Report received from Susanne MACK with use of SBAR. Why are they here: Patient decompensated at board and care; increasingly agitated with bizarre, paranoid and delusional statements. Access center assessed and brought to ED for evaluation and stabilization. Assessment What happened this shift: Patient observed watching TV in the group room at the beginning of shift. Pleasant and cooperative with care; compliant with medication. Patient agreeable and cooperative when poem writer suggested we leave his door slightly cracked for his roommate. He participated in HS snack and briefly walked the hallway and returned to watch TV in the group room with peers. Patient had no outbursts and did not appear agitated or instigating peers this shift. Patient observed sleeping and does not appear to be having difficulty. S/I, H/I: Denies A/VH: Denies Sleep: Refer to sleep hours ADL's: Independent Group attendance: N/A Were Meds taken: Yes Any med S/E: Not observed nor reported Mental Status Exam Appearance: Clean, wearing personal attire and nonskid socks Eye contact: Good Behavior: Pleasant and cooperative, watching tv and walking the unit Speech: Clear, audible, normal rate/rhythm. Mood: Pleasant Affect: Flat Thought process: Circumstantial Thought Content: Meeting needs Cognition: A/Ox3 Insight: Fair Judgment: Fair Interventions PRN's used: None Therapeutic interventions: provided 1:1 assessment, therapeutic communication and active listening, pain management for right shoulder, medication administration/education/monitoring, encouragement to attend groups, behavior monitoring and intervention as needed, limit setting, Q 15 minute safety checks. Restraints/seclusion/emergency medication: N/A Justification of Continued Inpatient Treatment: Patient is LPS conserved and requires a safe and therapeutic environment. Patient was accepted to [facility], awaiting discharge date/time.
[2020-08-15] MEDS: LORazepam 0.5 MG tablet PO SCH ×2 (07:16→16:04)
[2020-08-15] MEDS: divalproex sod 250mg ER (24-hour) tablet PO SCH ×2 (07:16→21:00)
[2020-08-15] MEDS: haloperidol 5mg tablet PO SCH ×3 (07:16→21:00)
[2020-08-15] MEDS: trihexyphenidyl HCL 5 MG tablet PO SCH ×3 (07:16→21:00)
[2020-08-15] MEDS: pantoprazole 40mg Tablet.DR PO SCH (07:16)
[2020-08-15 07:30] VITALS: BP 125/76
[2020-08-15] MEDS: naproxen 500mg tablet PO SCH ×2 (07:31→17:32)
--- NOTE | 2020-08-15 09:07 | NUR ---
Hardik was upset this morning that he is still here. Allowed him to vent about this and validated his feelings and frustrations. Offered encouragement that hopefully [facility] will open soon. LEXIE Squires
[2020-08-15] MEDS: traMADol 50MG tablet PO PRN (09:09)
--- NOTE | 2020-08-15 15:09 | NUR ---
Nursing Progress Note: Legal hold: LPS Report received from Veronica Da Silva RN with use of SBAR. Why are they here: Pt decompensated at board and care; increasingly agitated with bizarre, paranoid and delusional statements. Access center assessed and brought to ED for evaluation and stabilization. Assessment What happened this shift: Pt was up for breakfast ,asked for his medications early. Pt asked if he was going to be discharged today. Discussed how he is still accepted at a new [facility] and we are just waiting for all of their licensing to go through. Pt expressed understanding. Pt had a better day today. A staff member came up with the idea of placing a folded pair of nonskid socks under his bedroom door instead of roommate using a garbage can to keep door open just a crack and this has seemed to be working out better today as Hardik frequently goes in and out of the room while roommate prefers to remain in bed. No arguments today with roommate. Pt denied depression, SI/HI/AH/VH. Pt c/o 07/04 right shoulder pain at 09 and was medicated with PRN Tramadol 50 mg with good effect. Pt reported decreased pain and an improvement in his mood after taking the Tramadol. Pt stated that he wished he had a bionic left arm, left leg and left eye. Reminisced with pt about the old TV show, The Bionic Man (The Six Million Dollar Man) and the Bionic Woman. Pt stated that he broke his knuckle in the past and you can tell. Pt showed this RN his left 5th knuckle (it did not appear any different than any of the other ones.) Pt stated that he broke it because he played hard. "I'm not going to play hard anymore...I'm going to follow the rules...I'm not going to do the [employer] Triath[employer] in [place]." Asked pt if he had done it before. Pt answered, "I was there...in [place]...[place]." Pt speaks in a slow drawl and pauses frequently. Pt did some laundry today. Pt watched 80"s music videos in the rec room. Pt called someone today on the phone (probably his conservator) while watching the 80's videos. Talbot pt say "What's going to happen to all my stuff? Oh okay. What I need now is a new pair of shoes...Reeboks." S/I, H/I: Pt denied A/VH: Pt denied, did not appear to be responding to internal stimuli, he does appear a bit internally preoccupied at times. Sleep: Pt slept 7.5 hours last night per noc shift report. ADL's: Independent Group attendance: No group today. Were meds taken: Yes Any med S/E: None noted or reported. Mental Status Exam Appearance: Tall, sallow-skinned man with holcomb and moustache wearing slacks, a purple t-shirt, a dress jacket, a baseball cap, and hiking boots. Eye contact: Good Behavior: Mostly pleasant and cooperative, listens to radio headphones, watches TV, spends time in chair in room. Speech: Clear, audible, speaks in a slow drawl with pauses, can become a bit loud at times. Mood: Good Affect: Blunted Thought process: Circumstantial,thought blocking, loose associations,reality distortion Thought Content: He wants to be discharged, he wants bionic parts, tramadol makes him feel better, he would like a pair of Reeboks. Cognition: A/O x 3, disorganized as to situation. Insight: Poor Judgment: Fair Interventions PRN's used: Tramadol 50 mg Therapeutic interventions: 1:1 assessment, therapeutic conversation and communication, active listening, medication administration/education/monitoring, behavior monitoring and intervention; limits setting, redirection, reality orientation, positive reinforcement, maintained Q 15 minute safety checks. Restraints/seclusion/emergency medication: N/A Justification of Continued Inpatient Treatment: Patient is LPS conserved and requires a safe and therapeutic environment until appropriately placed. Pt is awaiting a bed at a new [facility] which has not opened yet.
[2020-08-15 19:24] VITALS: BP 125/86
[2020-08-15] MEDS: quetiapine 100mg tablet PO SCH (21:00)
--- NOTE | 2020-08-16 05:01 | NUR ---
NURSING PROGRESS NOTE Legal hold: LPS Report received from Susanne MACK with use of SBAR. Why are they here: Patient decompensated at board and care; increasingly agitated with bizarre, paranoid and delusional statements. Access center assessed and brought to ED for evaluation and stabilization. Assessment What happened this shift: Patient observed laying down at the beginning of shift. Pleasant and cooperative with care; compliant with medication. Patient briefly observed in the phillips and participated in HS snack. He quickly retired to bed; he reported, "I'm just tired." Patient denies SI, HI, A/VH. No agitation or outbursts observed or reported this shift. Patient observed sleeping and does not appear to be having difficulty. S/I, H/I: Denies A/VH: Denies Sleep: Refer to sleep hours ADL's: Independent Group attendance: N/A Were Meds taken: Yes Any med S/E: Not observed nor reported Mental Status Exam Appearance: Clean, wearing personal attire and nonskid socks Eye contact: Good Behavior: Pleasant and cooperative, fatigued Speech: Clear, audible, normal rate/rhythm. Mood: Tired Affect: Congruent to mood Thought process: Circumstantial Thought Content: Feeling tired Cognition: A/Ox3 Insight: Fair Judgment: Fair Interventions PRN's used: None Therapeutic interventions: provided 1:1 assessment, therapeutic communication and active listening, pain management for right shoulder, medication administration/education/monitoring, encouragement to attend groups, behavior monitoring and intervention as needed, limit setting, Q 15 minute safety checks. Restraints/seclusion/emergency medication: N/A Justification of Continued Inpatient Treatment: Patient is LPS conserved and requires a safe and therapeutic environment. Patient was accepted to [facility], awaiting discharge date/time.
[2020-08-16] MEDS: haloperidol 5mg tablet PO SCH ×3 (07:23→20:38)
[2020-08-16] MEDS: trihexyphenidyl HCL 5 MG tablet PO SCH ×3 (07:23→20:38)
[2020-08-16] MEDS: acetaminophen 325mg tablet PO PRN (07:23)
[2020-08-16] MEDS: LORazepam 0.5 MG tablet PO SCH ×2 (07:23→17:26)
[2020-08-16] MEDS: divalproex sod 250mg ER (24-hour) tablet PO SCH ×2 (07:23→20:38)
[2020-08-16] MEDS: pantoprazole 40mg Tablet.DR PO SCH (07:23)
[2020-08-16 07:48] VITALS: BP 113/69
--- NOTE | 2020-08-16 12:41 | NUR ---
F/u (08/16): Pt PO 75-100% avg meals meeting needs. Last BM 08/16. Documented with steady weight increase likely r/t eating well. Will continue to monitor. Recommend: 1. continue regular diet 2. routine bowel care 3. wt per rx Addendum: 08/16/20 at [address] Amended: Links added.
[2020-08-16] MEDS: naproxen 500mg tablet PO SCH ×2 (12:43→17:26)
--- NOTE | 2020-08-16 16:41 | NUR ---
Nursing Progress Note: Legal hold: LPS Report received from , RN with use of SBAR. Why are they here: Pt decompensated at board and care; increasingly agitated with bizarre, paranoid and delusional statements. Access center assessed and brought to ED for evaluation and stabilization. Assessment What happened this shift: Hardik awoke shortly after shift change and was hanging around nurses station looking for a cup of coffee, which was not available. Patient was given his medications early because he wants them first thing in the morning. Tylenol was brought with a.m. meds due to chronic right shoulder pain, that was rated a 9/10. Patient reports that he is unhappy today related to his inability to be transferred to a new facility that the opening, but has been delayed. He expressed his frustration over having to stay at this facility. In the early afternoon, patient was heard going between group room and his room cussing. Assessed patient and he stated that the charge nurse was trying to "fuck him over". RN asked why patient thought this and he said, "you can just see it on his face". Patient then went to his room and sat in his corner chair. Later, RN came and asked him if he was still upset, he stated "oh, that was just a delusion". Positive encouragement given for insight and ability to utilize coping mechanism and that he had a reality check on himself. Patient spent the remainder of the afternoon listening and singing to classic rock tunes. S/I, H/I: Pt denied A/VH: Pt denied. Sleep: Pt slept 9.75 hours last night per noc shift report. ADL's: Independent Group attendance: Yes. Were meds taken: Yes Any med S/E: None noted or reported. Mental Status Exam Appearance: Clean and neat wearing suit. Eye contact: Good Behavior: Mostly pleasant and cooperative, listens to radio headphones, watches TV, spends time in chair in room, listens to music in rec room Speech: Clear, audible, speaks in a slow drawl with pauses, can become a bit loud at times. Mood: Depressed in a.m. with some afternoon brightening. Affect: labile. Thought process: Circumstantial, delusions. Thought Content: Upset regarding placement delay. Cognition: A/O x 3, disorganized as to situation. Insight: Poor Judgment: Fair Interventions PRN's used: Tylenol. Therapeutic interventions: 1:1 assessment, therapeutic conversation and communication, active listening, medication administration/education/monitoring, behavior monitoring and intervention; limits setting, redirection, reality orientation, positive reinforcement, maintained Q 15 minute safety checks. Restraints/seclusion/emergency medication: N/A Justification of Continued Inpatient Treatment: Patient is LPS conserved and requires a safe and therapeutic environment until appropriately placed. Pt is awaiting a bed at a new [facility] which has not opened yet.
[2020-08-16 19:57] VITALS: BP 127/89
[2020-08-16 19:59] VITALS: BP 132/86
--- NOTE | 2020-08-16 20:01 | NUR ---
VOID 1956 VS entered in error
[2020-08-16] MEDS: quetiapine 100mg tablet PO SCH (20:38)
[2020-08-16] MEDS ORDERED: haloperidol lactate 5mg/ml inj IM ONE (21:45)
[2020-08-16] MEDS ORDERED: LORazepam 2 mg/ml vial IM ONE (21:45)
[2020-08-16] MEDS ORDERED: haloperidol lactate 5mg/ml inj ONE (21:47)
--- NOTE | 2020-08-17 04:13 | NUR ---
NURSING PROGRESS NOTE Legal hold: LPS Report received from Vinod RN with use of SBAR. Why are they here: Patient decompensated at board and care; increasingly agitated with bizarre, paranoid and delusional statements. Access center assessed and brought to ED for evaluation and stabilization. Assessment What happened this shift: Patient laying in bed at the beginning of shift. Later socializing appropriately with, smiling and walking the unit. He became agitated after requesting a nicotine lozenge and calling staff "stupid bitches." Patient sat in the recreation room with the TV off and light out and cooled down. He participated in HS snack and sat back in the recreation room with peers watching TV. He was cooperative with HS medication. Patient began to get agitated after roommate was admitted and showed to his room. He began yelling loudly how he did not want his roommate and was unable to be redirected. Construction Scheduler attempted to provide PRN Quetiapine but patient refused and continued state derogatory comments toward staff and peers. He was escorted to his bed by staff. CRN received IM orders for Ativan 2mg and Haldol 10mg from doctor. IM administered by automotive service writer and patient remained in his room. He briefly told automotive service writer jokes he was making up prior to going to bed. Patient observed sleeping and does not appear to be having difficulty. No further outbursts at this time. S/I, H/I: Denies A/VH: Denies Sleep: Refer to sleep hours ADL's: Independent Group attendance: N/A Were Meds taken: Yes Any med S/E: Not observed nor reported Mental Status Exam Appearance: Neat, clean, wearing personal attire and nonskid socks Eye contact: Good Behavior: Impulsive Speech: Clear, audible, normal rate/rhythm. Mood: Labile Affect: Congruent to mood Thought process: Circumstantial Thought Content: Wanting nicotine lozenge, does not want a roommate, jokes Cognition: A/Ox3 Insight: Fair Judgment: Fair Interventions PRN's used: IM Ativan 2mg, Haldol 10mg Therapeutic interventions: provided 1:1 assessment, therapeutic communication and active listening, pain management for right shoulder, medication administration/education/monitoring, encouragement to attend groups, behavior monitoring and intervention as needed, limit setting, Q 15 minute safety checks. Restraints/seclusion/emergency medication: N/A Justification of Continued Inpatient Treatment: Patient is LPS conserved and requires a safe and therapeutic environment. [facility], awaiting discharge date/time.
[2020-08-17 08:00] VITALS: BP 117/60
[2020-08-17] MEDS: pantoprazole 40mg Tablet.DR PO SCH (08:25)
[2020-08-17] MEDS: haloperidol 5mg tablet PO SCH ×3 (08:25→20:47)
[2020-08-17] MEDS: naproxen 500mg tablet PO SCH ×2 (08:25→17:31)
[2020-08-17] MEDS: LORazepam 0.5 MG tablet PO SCH ×2 (08:26→17:31)
[2020-08-17] MEDS: trihexyphenidyl HCL 5 MG tablet PO SCH ×3 (08:26→20:47)
[2020-08-17] MEDS: divalproex sod 250mg ER (24-hour) tablet PO SCH ×2 (08:26→20:48)
--- NOTE | 2020-08-17 16:39 | NUR ---
NURSING PROGRESS NOTE Legal hold: LPS Report received from RN with use of SBAR Why are they here: Pt decompensated at board and care; increasingly agitated with bizarre, paranoid and delusional statements. Access center assessed and brought to ED for evaluation and stabilization. Assessment What happened this shift: Received Pt in bed sleeping w/o distress at change of shift. Pt cooperative with vitals and AM meds. Pt irritable stating you guys arent helping me, and stood in his room making rude statements toward roommate. Overall irritable and angry today, yet cooperative. Became very loud and verbally aggressive in afternoon and was able to respond to verbal intervention and contain his outbursts. Pt appears depressed and is irritable, complaining about many topics. Pt calmer in afternoon and appeared to calm as the milieu stress decreased as well. S/I, H/I: Pt denies A/VH: Endorses A/H Sleep: None this shift ADL's: Independent Group attendance: No Were Meds taken: Yes Any med S/E: None noted or reported Mental Status Exam Appearance: Casual in suit jacket Eye contact: Good Behavior: Labile Speech: Clear, audible, loud Mood: Irritable Affect: constricted Thought process: Circumstantial Thought Content: Being treated poorly Cognition: A/O X 3 Insight: Fair Judgment: Fair Interventions PRN's used: None Therapeutic interventions: provided 1:1 assessment, therapeutic communication and active listening, medication administration/education/monitoring, encouragement to attend groups, behavior monitoring and intervention as needed; verbal de-escalation, limit setting, Q 15 minute safety checks. Restraints/seclusion/emergency medication: N/A Justification of Continued Inpatient Treatment: Patient is LPS conserved and requires a safe and therapeutic environment until appropriate placement found.
[2020-08-17 20:26] VITALS: BP 124/76
[2020-08-17] MEDS: quetiapine 100mg tablet PO SCH (20:48)
--- NOTE | 2020-08-18 04:40 | NUR ---
NURSING PROGRESS NOTE Legal hold: LPS Report received from Vinod RN with use of SBAR. Why are they here: Patient decompensated at board and care; increasingly agitated with bizarre, paranoid and delusional statements. Access center assessed and brought to ED for evaluation and stabilization. Assessment What happened this shift: Patient pacing the unit and irritable with staff at the beginning of shift. He continuously walked up to nurse's station and making comments such as, "dumb bitches" and "stupid dyke." Later telegraphic typewriter mechanic was able to have a pleasant conversation with patient and he continues to endorse delusional thought content. He was pleasant and cooperative with med pass and explained having his "usual shoulder pain." He began making pleasant comments such as, "I just need a smile." Patient participated in HS snack prior to bed. Observed sleeping and does not appear to be having difficulty. S/I, H/I: Denies A/VH: Denies Sleep: Refer to sleep hours ADL's: Independent Group attendance: N/A Were Meds taken: Yes Any med S/E: Not observed nor reported Mental Status Exam Appearance: Neat, clean, wearing personal attire and nonskid socks Eye contact: Good Behavior: Impulsive Speech: Clear, audible, normal rate/rhythm. Mood: Labile Affect: Congruent to mood Thought process: Circumstantial, delusions Thought Content: Delusions Cognition: A/Ox3 Insight: Fair Judgment: Fair Interventions PRN's used: None Therapeutic interventions: provided 1:1 assessment, therapeutic communication and active listening, pain management for right shoulder, medication administration/education/monitoring, encouragement to attend groups, behavior monitoring and intervention as needed, limit setting, Q 15 minute safety checks. Restraints/seclusion/emergency medication: N/A Justification of Continued Inpatient Treatment: Patient is LPS conserved and requires a safe and therapeutic environment. Patient was accepted to [facility], awaiting discharge date/time.
[2020-08-18] MEDS: LORazepam 0.5 MG tablet PO SCH ×2 (07:24→16:32)
[2020-08-18] MEDS: trihexyphenidyl HCL 5 MG tablet PO SCH ×3 (07:24→20:21)
[2020-08-18] MEDS: haloperidol 5mg tablet PO SCH ×3 (07:24→20:16)
[2020-08-18] MEDS: divalproex sod 250mg ER (24-hour) tablet PO SCH ×2 (07:24→20:15)
[2020-08-18] MEDS: pantoprazole 40mg Tablet.DR PO SCH (07:24)
[2020-08-18] MEDS: traMADol 50MG tablet PO PRN ×2 (07:25→20:16)
[2020-08-18 08:00] VITALS: BP 113/70
[2020-08-18 08:02] LABS: BASOPHILS # (AUTO) 0.1 X10'3 (0-0.2); BASOPHILS % (AUTO) 1.2 % (0-1); EOSINOPHILS # (AUTO) 0.6 X10'3 (0-0.9); HEMATOCRIT 38.6 % (42.0-52.0); HEMOGLOBIN 12.9 g/dl (14.0-17.9); LYMPHOCYTES # (AUTO) 1.8 X10'3 (1.1-4.8); LYMPHOCYTES % (AUTO) 27.7 % (21-51); MEAN CORPUSCULAR HGB CONC 33.5 g/dL (33.0-36.5); MEAN CORPUSCULAR VOLUME 95.6 FL (78-98); MONOCYTES # (AUTO) 0.9 X10'3 (0-0.9); MONOCYTES % (AUTO) 13.8 % (2-12); NEUTROPHILS # (AUTO) 3.2 X10'3 (1.8-7.7); NEUTROPHILS % (AUTO) 48.3 % (42-75); PLATELET COUNT 198 X10'3 (140-440); RED BLOOD COUNT 4.04 X10'6 (4.70-6.10); RED CELL DISTRIBUTION WIDTH 13.5 % (11.5-14.5); WHITE BLOOD COUNT 6.6 X10'3 (4.5-11.0)
[2020-08-18] MEDS: naproxen 500mg tablet PO SCH ×2 (08:08→16:32)
[2020-08-18 08:43] LABS: ALANINE AMINOTRANSFERASE 25 U/L (12-78); ALBUMIN 3.4 G/DL (3.4-5.0); ALBUMIN/GLOBULIN RATIO 1.1 (1.1-1.5); ALKALINE PHOSPHATASE 97 IU/L (46-116); ASPARTATE AMINO TRANSFERASE 20 U/L (10-37); BILIRUBIN,TOTAL 0.3 MG/DL (0.1-1.0); BLOOD UREA NITROGEN 17 MG/DL (7-18); BUN/CREATININE RATIO 17.7 (5.4-32.0); CALCIUM 9.2 MG/DL (8.5-10.1); CREATININE 0.96 MG/DL (0.60-1.10); GLUCOSE 93 MG/DL (70-104); TOTAL CARBON DIOXIDE 27.9 MMOL/L (24-32); TOTAL PROTEIN 6.6 G/DL (6.4-8.2); eGFR 81 ML/MIN
[2020-08-18 08:51] LABS: ANION GAP 6 (8-16); CHLORIDE 98 MMOL/L (99-107); POTASSIUM 4.6 MMOL/L (3.5-5.1); SODIUM 132 MMOL/L (135-145)
[2020-08-18 09:25] LABS: VALPROATE 72 UG/ML (50-100)
--- NOTE | 2020-08-18 14:24 | NUR ---
PLACEMENT Hardik has been accepted at [facility]. [facility] office requested updated notes to send to [facility]. This morning Hardik asked if he could go to [facility]. LEXIE Squires
--- NOTE | 2020-08-18 15:20 | NUR ---
Nursing Progress Note: Legal hold: LPS Report received from MARTINA Fish with use of SBAR. Why are they here: Pt decompensated at board and care; increasingly agitated with bizarre, paranoid and delusional statements. Access center assessed and brought to ED for evaluation and stabilization. Assessment What happened this shift: Pt was up before breakfast asking for his medications. Pt requested PRN tramadol for 9/10 right shoulder pain. Tramadol 50 mg administered at 0725 with good effect. Pt reported sleeping well last night. Pt spoke about the "bennie on over the past year." Pt spoke in a slow, suspicious tone of voice about him being placed on a conservatorship by 4 ladies on the computer in a Zoom video. Pt did not seem to approve of said bennie on. Pt's sodium level came back a bit low a [address] Davison notified. His Depakote level was 72. Pt requires gentle reality orientation as well as limit setting and redirection. He continues to be suspicious and paranoid, he frequently misinterprets his surroundings. S/I, H/I: Pt denies A/VH: Pt denies. He does appear internally preoccupied at times. Sleep: Pt slept 7.5 hours last night per noc shift report. ADL's: Independent Group attendance: Yes Were meds taken: Yes Any med S/E: Sodium level was a little low, pt does not drink excessive fluids, no SE's reported. Mental Status Exam Appearance: Tall, sallow-skinned man with holcomb and moustache wearing slacks, a purple t-shirt, a dress jacket, a baseball cap, and hiking boots. Eye contact: Good Behavior: Mostly pleasant and cooperative though can be a bit argumentative with peers, listens to radio headphones, watches TV, spends time in chair in room. Speech: Clear, audible, speaks in a slow drawl with pauses, can become a bit loud at times. Mood: "okay" Affect: Blunted Thought process: Suspicious, paranoid, circumstantial Thought Content: He does not approve of the "bennie on" of the past year especially of Zoom meetings in regards to his conservatorship. Cognition: A/O x 3, disoriented as to situation. Insight: Poor Judgment: Fair Interventions PRN's used: Tramadol 50 mg Therapeutic interventions: 1:1 assessment, therapeutic conversation and communication, active listening, medication administration/education/monitoring, behavior monitoring and intervention; limit setting, redirection, reality orientation, positive reinforcement, maintained Q 15 minute safety checks. Restraints/seclusion/emergency medication: N/A Justification of Continued Inpatient Treatment: Patient is LPS conserved and requires a safe and therapeutic environment until appropriately placed. Pt is awaiting a bed at a new [facility] which has not opened yet. Addendum: 08/18/20 at 1807 by Mi Diaz RN (Lee) Pt has new orders to increase Depakote to 1500 mg HS and 1000 mg daily, Debrox gtts BID both ears then flush, prn artificial tears.
[2020-08-18] MEDS: acetaminophen 325mg tablet PO PRN (18:35)
[2020-08-18] MEDS: quetiapine 100mg tablet PO SCH (18:35)
[2020-08-18 19:51] VITALS: BP 126/80
[2020-08-18] MEDS: carbamide peroxide 15ml bottle EACH EAR SCH (20:17)
[2020-08-18] MEDS: PEG 400/HYPROMELLOSE/GLYCERIN 15ml bottle EACHEYE PRN (20:18)
--- NOTE | 2020-08-19 02:25 | NUR ---
NURSING PROGRESS NOTE Legal hold: LPS Report received from Lon MACK with use of SBAR. Why are they here: Patient decompensated at board and care; increasingly agitated with bizarre, paranoid and delusional statements. Access center assessed and brought to ED for evaluation and stabilization. Assessment What happened this shift: Patient sitting in the rec room listening to music on the headphones. Patient is very cooperative and polite this shift. Explained to this nurse while there was a conflict in the hallway Im staying away from all of that. Patient proceeded to listen to his music in the community room and take his medications. Compliant with care. Patient participated in HS snack prior to bed. Observed sleeping and does not appear to be having difficulty. S/I, H/I: Denies A/VH: Denies Sleep: Refer to sleep hours ADL's: Independent Group attendance: N/A Were Meds taken: Yes Any med S/E: Not observed nor reported Mental Status Exam Appearance: Neat, clean, wearing personal attire and nonskid socks Eye contact: Good Behavior: Impulsive Speech: Clear, audible, normal rate/rhythm. Mood: Labile Affect: Congruent to mood Thought process: Circumstantial, delusions Thought Content: Delusions Cognition: A/Ox3 Insight: Fair Judgment: Fair Interventions PRN's used: Eye drops, acetaminophen, tramadol Therapeutic interventions: provided 1:1 assessment, therapeutic communication and active listening, pain management for right shoulder, medication administration/education/monitoring, behavior monitoring and intervention as needed, limit setting, Q 15 minute safety checks. Restraints/seclusion/emergency medication: N/A Justification of Continued Inpatient Treatment: Patient is LPS conserved and requires a safe and therapeutic environment. Patient was accepted to [facility], awaiting discharge date/time. Addendum: 08/19/20 at 0451 by Katie Simpson RN Patient also took maalox and acetaminophen.
[2020-08-19] MEDS: LORazepam 1 MG tablet PO PRN (03:42)
[2020-08-19] MEDS: acetaminophen 325mg tablet PO PRN ×3 (04:48→15:31)
[2020-08-19] MEDS: trihexyphenidyl HCL 5 MG tablet PO SCH ×3 (07:43→19:43)
[2020-08-19] MEDS: naproxen 500mg tablet PO SCH ×2 (07:43→17:00)
[2020-08-19] MEDS: pantoprazole 40mg Tablet.DR PO SCH (07:43)
[2020-08-19] MEDS: haloperidol 5mg tablet PO SCH ×3 (07:44→20:03)
[2020-08-19] MEDS: LORazepam 0.5 MG tablet PO SCH ×2 (07:44→17:00)
[2020-08-19 07:46] VITALS: BP 123/76
[2020-08-19] MEDS: carbamide peroxide 15ml bottle EACH EAR SCH ×2 (08:00→19:43)
[2020-08-19] MEDS: divalproex sod 250mg ER (24-hour) tablet PO SCH ×2 (08:02→20:03)
--- NOTE | 2020-08-19 10:00 | NUR ---
Group Therapy: Process Group This Clinicians goal for this process group were as follows: (1) Introduce and provide psychoeducation on Arguelles ABC method. (2) Practice working through Arguelles ABC method using examples provided by this Clinician. (3) Encourage Patients to process some of their own reoccurring situations utilizing Arguelles ABC methodology. (4) Process Clients thoughts and reflections on this topic within the group milieu. Patient identified experiencing the following levels of anxiety, depression, and anger/irritability while present in the group milieu (0-low; 10-High). Anxiety: 1/10 Depression: 0/10 Anger/irritability: 0/10 Patient presented as properly oriented x4 during the process group. Patient was dressed in nondescript, personal clothing that were appropriate within the milieu. Patient wore a smallwood suit jacket, over a dark shirt, with matching smallwood suit slacks. he was wearing a dark baseball hat during session. Patient was only present at the very beginning of the process group long enough to provide scaling answers regarding the acuity of his anxiety, depression, and anger/irritability symptoms. Patient stood up quietly from his seat at the back of the group room and left the milieu during the first five minutes, while this Clinician was checking in with other Patient's about their symptoms. He did not return. The rate, tone, and latency of his speech was within normal limits. Per this Clinician's impression, Patient's speech was slightly slurred. Patient was not present during the conversation on Blane' ABC CBT methology. Hence, this Clinician was not able to assess the content of Patient's thought, or make informed comments on his thinking process(es) based upon his brief time in the group milieu today. Angelo Marks MA, [employer] Addendum: 08/19/20 at 1148 by Angelo Marks Amended: Links added.
[2020-08-19] MEDS: PEG 400/HYPROMELLOSE/GLYCERIN 15ml bottle EACHEYE PRN ×2 (10:01→15:36)
--- NOTE | 2020-08-19 15:53 | NUR ---
NURSING PROGRESS NOTE Legal hold: LPS Report received from MARTINA Barron with use of SBAR. Why are they here: Patient decompensated at board and care; increasingly agitated with bizarre, paranoid and delusional statements. Access center assessed and brought to ED for evaluation and stabilization. Assessment What happened this shift: Up early wanting coffee before breakfast. Took morning medications, ate and went back to sleep mid morning. Became angry and demanding about eye drops which he thought were to be given "5times a day, Dr. Starks said so." Became verbally threatening. The patient was able to calm self. Sometimes misinterprets things that are said to him. He is looking forward to placement. Overall he is cooperative and pleasant. S/I, H/I: Denies A/VH: Denies Sleep: napped ADL's: Independent Group attendance: partial Were Meds taken: Yes Any med S/E: Not observed nor reported Mental Status Exam Appearance: Neat, clean, wearing personal attire and nonskid socks Eye contact: Good Behavior: mostly cooperative Speech: Clear, audible, normal rate/rhythm. Mood: Labile at times Affect: Congruent to mood Thought process: Circumstantial, delusions Thought Content: Delusions Cognition: A/Ox3 Insight: Fair Judgment: Fair Interventions PRN's used: None Therapeutic interventions: provided 1:1 assessment, therapeutic communication and active listening, pain management for right shoulder, medication administration/education/monitoring, encouragement to attend groups, behavior monitoring and intervention as needed, limit setting, Q 15 minute safety checks. Restraints/seclusion/emergency medication: N/A Justification of Continued Inpatient Treatment: Patient is LPS conserved and requires a safe and therapeutic environment. Patient was accepted to [facility], awaiting discharge date/time.
[2020-08-19] MEDS: traMADol 50MG tablet PO PRN (18:14)
[2020-08-19] MEDS: quetiapine 100mg tablet PO SCH (19:48)
[2020-08-19 20:00] VITALS: BP 126/85
--- NOTE | 2020-08-19 23:54 | NUR ---
NURSING PROGRESS NOTE Legal hold: LPS Report received from MARTINA Forrest with use of SBAR. Why are they here: Patient decompensated at board and care; increasingly agitated with bizarre, paranoid and delusional statements. Access center assessed and brought to ED for evaluation and stabilization. Assessment What happened this shift: Pt isolated to his room most of the shift listening to music. He still complains of right shoulder pain but says tramadol is effective. Pt denies hearing any voices, saying, they come and go. Pt was cooperative for 1:1 and did not have any behavior issues during this shift. Pt accepted hs meds without issue. S/I, H/I: Denies A/VH: Denies Sleep: napped ADL's: Independent Group attendance: n/a Were Meds taken: Yes Any med S/E: Not observed nor reported Mental Status Exam Appearance: Neat, clean, wearing personal attire and nonskid socks Eye contact: Good Behavior: friendly Speech: Clear, audible, normal rate/rhythm. Mood: Labile at times Affect: Congruent to mood Thought process: Circumstantial, delusions Thought Content: shoulder pain Cognition: A/Ox3 Insight: Fair Judgment: Fair Interventions PRN's used: None Therapeutic interventions: provided 1:1 assessment, therapeutic communication and active listening, pain management for right shoulder, medication administration/education/monitoring, encouragement to attend groups, behavior monitoring and intervention as needed, limit setting, Q 15 minute safety checks. Restraints/seclusion/emergency medication: N/A Justification of Continued Inpatient Treatment: Patient is LPS conserved and requires a safe and therapeutic environment. [facility], awaiting discharge date/time.
[2020-08-20] MEDS: acetaminophen 325mg tablet PO PRN (06:18)
[2020-08-20] MEDS: pantoprazole 40mg Tablet.DR PO SCH (07:53)
[2020-08-20] MEDS: trihexyphenidyl HCL 5 MG tablet PO SCH ×3 (07:53→19:32)
[2020-08-20] MEDS: haloperidol 5mg tablet PO SCH ×3 (07:53→21:03)
[2020-08-20] MEDS: divalproex sod 250mg ER (24-hour) tablet PO SCH ×2 (07:54→21:03)
[2020-08-20] MEDS: naproxen 500mg tablet PO SCH ×2 (07:54→17:16)
[2020-08-20] MEDS: LORazepam 0.5 MG tablet PO SCH ×2 (07:54→17:16)
[2020-08-20 08:00] VITALS: BP 105/70
[2020-08-20] MEDS: carbamide peroxide 15ml bottle EACH EAR SCH ×2 (08:00→19:37)
--- NOTE | 2020-08-20 12:12 | NUR ---
NURSING PROGRESS NOTE Legal hold: LPS Report received from MARTINA Barron with use of SBAR. Why are they here: Patient decompensated at board and care; increasingly agitated with bizarre, paranoid and delusional statements. Access center assessed and brought to ED for evaluation and stabilization. Assessment What happened this shift: Up early and walking in hallway before breakfast. Took all medications and eating well. Calm, pleasant and cooperative. Attends all groups today and socializes with his peers. No outbursts today. Denies hallucinations. S/I, H/I: Denies A/VH: Denies Sleep: napped ADL's: Independent Group attendance: yes Were Meds taken: Yes Any med S/E: Not observed nor reported Mental Status Exam Appearance: Neat, clean Eye contact: Good Behavior: pleasant and cooperative Speech: Clear, audible, normal rate/rhythm. Mood: "good" Affect: pleasant Thought process: Circumstantial Thought Content: getting his needs met Cognition: Alert Insight: Fair Judgment: Fair Interventions PRN's used: None Therapeutic interventions: provided 1:1 assessment, therapeutic communication and active listening, pain management for right shoulder, medication administration/education/monitoring, encouragement to attend groups, behavior monitoring and intervention as needed, limit setting, Q 15 minute safety checks. Restraints/seclusion/emergency medication: N/A Justification of Continued Inpatient Treatment: Patient is LPS conserved and requires a safe and therapeutic environment. [facility] was [facility], awaiting discharge date/time.
[2020-08-20] MEDS: quetiapine 100mg tablet PO SCH (19:31)
[2020-08-20 20:00] VITALS: BP 135/76
--- NOTE | 2020-08-20 23:12 | NUR ---
NURSING PROGRESS NOTE Legal hold: LPS Report received from MARTINA Forrest with use of SBAR. Why are they here: Patient decompensated at board and care; increasingly agitated with bizarre, paranoid and delusional statements. Access center assessed and brought to ED for evaluation and stabilization. Assessment What happened this shift: Pt was active on the unit this evening. Pt was seen walking the halls, watching tv in the group room and sitting quietly in his room at times. Pt appeared to be in a good mood and was friendly during 1:1. Pt denied having any complaints and said that his shoulder was feeling better. Pt did not have any behavior issues nor did he make any delusional statements. S/I, H/I: Denies A/VH: Denies Sleep: napped ADL's: Independent Group attendance: n/a Were Meds taken: Yes Any med S/E: Not observed nor reported Mental Status Exam Appearance: Neat, clean, wearing personal attire and nonskid socks Eye contact: Good Behavior: friendly Speech: Clear, audible, normal rate/rhythm. Mood: Labile at times Affect: Congruent to mood Thought process: Circumstantial, delusions Thought Content: shoulder pain Cognition: A/Ox3 Insight: Fair Judgment: Fair Interventions PRN's used: None Therapeutic interventions: provided 1:1 assessment, therapeutic communication and active listening, pain management for right shoulder, medication administration/education/monitoring, encouragement to attend groups, behavior monitoring and intervention as needed, limit setting, Q 15 minute safety checks. Restraints/seclusion/emergency medication: N/A Justification of Continued Inpatient Treatment: Patient is LPS conserved and requires a safe and therapeutic environment. Patient was accepted to [facility], awaiting discharge date/time.
[2020-08-21] MEDS: traMADol 50MG tablet PO PRN (05:09)
[2020-08-21] MEDS: trihexyphenidyl HCL 5 MG tablet PO SCH ×3 (07:31→20:35)
[2020-08-21] MEDS: haloperidol 5mg tablet PO SCH ×3 (07:31→20:34)
[2020-08-21] MEDS: pantoprazole 40mg Tablet.DR PO SCH (07:31)
[2020-08-21] MEDS: divalproex sod 250mg ER (24-hour) tablet PO SCH ×2 (07:31→20:35)
[2020-08-21] MEDS: LORazepam 0.5 MG tablet PO SCH ×2 (07:32→16:31)
[2020-08-21] MEDS: carbamide peroxide 15ml bottle EACH EAR SCH ×2 (07:43→20:35)
[2020-08-21] MEDS: naproxen 500mg tablet PO SCH ×2 (07:43→16:31)
[2020-08-21 08:00] VITALS: BP 111/75
--- NOTE | 2020-08-21 16:20 | NUR ---
NURSING PROGRESS NOTE Legal hold: LPS Report received from MARTINA Barron with use of SBAR. Why are they here: Patient decompensated at board and care; increasingly agitated with bizarre, paranoid and delusional statements. Access center assessed and brought to ED for evaluation and stabilization. Assessment What happened this shift: Received patient awake at shift change. Pt was ambulating the phillips listening to headphones. Pt is calm and cooperative. No outbursts this shift. Pt is compliant with medications. Reports right shoulder pain, but the Naproxen 500mg BID is adequate. Pt is observed socializing appropriately with peers and staff. Appears to get along with his roommate. Late afternoon this RN went into pt's room, patient was listening to the headphones and asked "Do you steal social security checks from the [employer]?" S/I, H/I: Denies both. A/VH: Denies both. Sleep: 7.75 hrs per Sleep Assessment. No naps today. ADL's: Independent Group attendance: No group today. Were Meds taken: Yes, without hesitation. Any med S/E: Not observed nor reported Mental Status Exam Appearance: Neat, wearing his dress jacket and ball cap. Eye contact: Good Behavior: Pleasant, slightly delusional (baseline), cooperative; socializes appropriately with staff and peers. Speech: Clear, audible, normal rate/rhythm. Mood: Euthymic Affect: Blunted Thought process: Circumstantial Thought Content: "stealing social security checks." Cognition: A&Ox4 Insight: Fair Judgment: Fair Interventions PRN's used: None Therapeutic interventions: provided 1:1 assessment, therapeutic communication and active listening, pain management for right shoulder, medication administration/education/monitoring, encouragement to attend groups, behavior monitoring and intervention as needed, limit setting, Q 15 minute safety checks. Restraints/seclusion/emergency medication: N/A Justification of Continued Inpatient Treatment: Patient is LPS conserved and requires a safe and therapeutic environment. [facility] was [facility], awaiting discharge date/time.
[2020-08-21] MEDS ORDERED: traMADol 50MG tablet PO PRN (18:40)
[2020-08-21 19:00] VITALS: BP 109/76
[2020-08-21] MEDS: quetiapine 100mg tablet PO SCH (20:33)
--- NOTE | 2020-08-22 00:12 | NUR ---
NURSING PROGRESS NOTE Legal hold: LPS Report received from MARTINA Forrest with use of SBAR. Why are they here: Patient decompensated at board and care; increasingly agitated with bizarre, paranoid and delusional statements. Access center assessed and brought to ED for evaluation and stabilization. Assessment What happened this shift: Patient was awake and going between the group room and the rec room watching tv with peers. Pt was in a good mood for most of the shift. He got up set with a female peer interrupting the tv program and argued with her. They were redirected and calmed down. He was med compliant and ate snack in group room. S/I, H/I: Denies both. A/VH: Denies both. Sleep: 7.75 hrs per Sleep Assessment. No naps today. ADL's: Independent Group attendance: No group today. Were Meds taken: Yes, without hesitation. Any med S/E: Not observed nor reported Mental Status Exam Appearance: Neat, wearing his dress jacket and ball cap. Eye contact: Good Behavior: Pleasant, slightly delusional (baseline), cooperative; socializes appropriately with staff and peers. Speech: Clear, audible, normal rate/rhythm. Mood: Euthymic Affect: Blunted Thought process: Circumstantial Thought Content: "stealing social security checks." Cognition: A&Ox4 Insight: Fair Judgment: Fair Interventions PRN's used: None Therapeutic interventions: provided 1:1 assessment, therapeutic communication and active listening, pain management for right shoulder, medication administration/education/monitoring, encouragement to attend groups, behavior monitoring and intervention as needed, limit setting, Q 15 minute safety checks. Restraints/seclusion/emergency medication: N/A Justification of Continued Inpatient Treatment: Patient is LPS conserved and requires a safe and therapeutic environment. Patient was accepted to [facility], awaiting discharge date/time. Addendum: 08/22/20 at 0348 by Sidney Thompson RN Wilmer Licea @ [phone] helpful.
[2020-08-22] MEDS: quetiapine 100mg tablet PO PRN (03:20)
[2020-08-22 06:37] LABS: RED BLOOD COUNT 3.62 X10'6 (4.70-6.10); RETICULOCYTE % (AUTO) 1.1 % (0.5-1.5)
[2020-08-22 07:28] LABS: FERRITIN 92 NG/ML (26-388)
[2020-08-22 07:30] VITALS: BP 111/80
[2020-08-22] MEDS: pantoprazole 40mg Tablet.DR PO SCH (07:46)
[2020-08-22] MEDS: LORazepam 0.5 MG tablet PO SCH ×2 (07:46→17:11)
[2020-08-22] MEDS: haloperidol 5mg tablet PO SCH ×3 (07:46→20:34)
[2020-08-22] MEDS: trihexyphenidyl HCL 5 MG tablet PO SCH ×3 (07:46→20:32)
[2020-08-22] MEDS: divalproex sod 250mg ER (24-hour) tablet PO SCH ×2 (07:46→20:35)
[2020-08-22] MEDS: carbamide peroxide 15ml bottle EACH EAR SCH ×2 (07:49→20:35)
[2020-08-22] MEDS: naproxen 500mg tablet PO SCH ×2 (07:50→17:11)
[2020-08-22 08:09] LABS: IRON 63 UG/DL (53-167); TOTAL IRON BINDING CAPACITY 232 UG/DL (259-388)
[2020-08-22 08:10] LABS: % IRON SATURATION 27 % (11-46)
[2020-08-22] MEDS: PEG 400/HYPROMELLOSE/GLYCERIN 15ml bottle EACHEYE PRN (08:42)
--- NOTE | 2020-08-22 17:23 | NUR ---
NURSING PROGRESS NOTE Legal hold: LPS Report received from MARTINA Barron with use of SBAR. Why are they here: Patient decompensated at board and care; increasingly agitated with bizarre, paranoid and delusional statements. Access center assessed and brought to ED for evaluation and stabilization. Assessment What happened this shift: Received patient up ambulating the phillips listening to headphones at shift change. Pt present with a smile and said "good morning." Pt requested a cup of coffee and then sat in the T.V room. Pt is compliant with medications and care. Pt was calm and cooperative most of the day then shortly after an incident on the unit occurred pt came to this RN and demanded "I want a Haldol decanoate shot!" "Are you not listening to me!" Pt states the reason for the shot is "so both my arms feel the same." Pt has chronic right shoulder pain. Pt stormed off to his room and refused any PRN's. Pt refused to talk to this RN on two different approaches. Pt was educated on the use of a Haldol decanoate injection. Pt then stated "I know what a Haldol decanoate shot is for, I am not fucking stupid!" Pt eventually calmed down. Pt apologized and asked "can I take my medicine now." Pt has an order for 2 occult blood stool labs. Received sample #1 and delivered to lab. Samples are r/t pt's low RBC. This RN made DIOGENES Hanks aware of RBC levels. Will notify next shift about second sample. Order is already in. S/I, H/I: Denies both. A/VH: Denies both. Sleep: 6 hrs per Sleep Assessment. Pt napped in the AM. ADL's: Independent Group attendance: Yes, AM group. Were Meds taken: Yes, without hesitation. Any med S/E: Not observed nor reported Mental Status Exam Appearance: Neat, wearing his dress jacket and ball cap. Eye contact: Good Behavior: Pleasant, slightly delusional (baseline), cooperative; socializes appropriately with staff and peers. One outburst this shift. Pt presents as fatigued. Speech: Clear, audible, normal rate/rhythm. Pressured when agitated. Mood: Euthymic to labile (one outburst) Affect: Congruent with mood. Thought process: Circumstantial, tangential Thought Content: Situational Cognition: Impaired Insight: Fair Judgment: Fair Interventions PRN's used: Artificial tears. Therapeutic interventions: provided 1:1 assessment, therapeutic communication and active listening, medication administration/education/monitoring, encouragement to attend groups, behavior monitoring and intervention as needed, verbal deescalation; Q 15 minute safety checks. Restraints/seclusion/emergency medication: N/A Justification of Continued Inpatient Treatment: Patient is LPS conserved and requires a safe and therapeutic environment. Patient was accepted to [facility], awaiting discharge date/time.
[2020-08-22 18:52] LABS: OCCULT BLOOD STOOL NEGATIVE (Neg)
[2020-08-22 20:00] VITALS: BP 110/78
[2020-08-22] MEDS: quetiapine 100mg tablet PO SCH (20:33)
--- NOTE | 2020-08-23 00:24 | NUR ---
NURSING PROGRESS NOTE Legal hold: LPS Report received from MARTINA Forrest with use of SBAR. Why are they here: Patient decompensated at board and care; increasingly agitated with bizarre, paranoid and delusional statements. Access center assessed and brought to ED for evaluation and stabilization. Assessment What happened this shift: Patient was asleep at shift change. Pt was awakened fot Vt's and I askedd how was his day. Pt stated that it was good but I just want to sleep. Pt went back to sleep wakened for meds and returned to sleep. Pt did not have a BM for a second stool sample this shift. S/I, H/I: Denies both. A/VH: Denies both. Sleep: 6 hrs per Sleep Assessment. Pt napped in the AM. ADL's: Independent Group attendance: Yes, AM group. Were Meds taken: Yes, without hesitation. Any med S/E: Not observed nor reported Mental Status Exam Appearance: Neat, wearing his dress jacket and ball cap. Eye contact: Good Behavior: Pleasant, slightly delusional (baseline), cooperative; socializes appropriately with staff and peers. One outburst this shift. Pt presents as fatigued. Speech: Clear, audible, normal rate/rhythm. Pressured when agitated. Mood: Euthymic to labile (one outburst) Affect: Congruent with mood. Thought process: Circumstantial, tangential Thought Content: Situational Cognition: Impaired Insight: Fair Judgment: Fair Interventions PRN's used: Artificial tears. Therapeutic interventions: provided 1:1 assessment, therapeutic communication and active listening, medication administration/education/monitoring, encouragement to attend groups, behavior monitoring and intervention as needed, verbal deescalation; Q 15 minute safety checks. Restraints/seclusion/emergency medication: N/A Justification of Continued Inpatient Treatment: Patient is LPS conserved and requires a safe and therapeutic environment. Patient was accepted to [facility], awaiting discharge date/time.
[2020-08-23 07:00] VITALS: BP 122/83
[2020-08-23] MEDS: carbamide peroxide 15ml bottle EACH EAR SCH ×2 (07:20→20:11)
[2020-08-23] MEDS: trihexyphenidyl HCL 5 MG tablet PO SCH ×3 (07:20→20:10)
[2020-08-23] MEDS: divalproex sod 250mg ER (24-hour) tablet PO SCH ×2 (07:20→20:11)
[2020-08-23] MEDS: LORazepam 0.5 MG tablet PO SCH ×2 (07:20→17:25)
[2020-08-23] MEDS: haloperidol 5mg tablet PO SCH ×3 (07:20→20:10)
[2020-08-23] MEDS: pantoprazole 40mg Tablet.DR PO SCH (07:20)
[2020-08-23] MEDS: naproxen 500mg tablet PO SCH ×2 (07:30→17:24)
--- NOTE | 2020-08-23 09:09 | NUR ---
[facility] downtime [id number]
--- NOTE | 2020-08-23 12:22 | NUR ---
F/u 08/23: Pt PO 100% meals meeting needs. Last BM 08/20. No nutrition concerns at this time. Will continue to monitor. Recommend: 1. continue regular diet 2. routine bowel care 3. wt per rx Addendum: 08/23/20 at [address] Amended: Links added.
[2020-08-23] MEDS: PEG 400/HYPROMELLOSE/GLYCERIN 15ml bottle EACHEYE PRN (14:02)
--- NOTE | 2020-08-23 16:09 | NUR ---
NURSING PROGRESS NOTE Legal hold: LPS Report received from MARTINA Fish with use of SBAR. Why are they here: Patient decompensated at board and care; increasingly agitated with bizarre, paranoid and delusional statements. Access center assessed and brought to ED for evaluation and stabilization. Assessment What happened this shift: Patient awake at change of shift requesting coffee, which was provided. He was given his medications early per pt request. Pt. reports that he is in a good mood today, and has had no episodes of agitation. He has taken medications without incident. As of this time, he has not had a BM, so 2nd stool specimen still needs to be collected. Patient watches t.v. in the rec room, and utilizes headphones for entertainment. S/I, H/I: Denies A/VH: Denies Sleep: Pt napped after breakfast. ADL's: Independent Group attendance: Yes. Were Meds taken: Yes. Any med S/E: Not observed nor reported Mental Status Exam Appearance: Neat, wearing his dress jacket and ball cap. Eye contact: Good Behavior: Pleasant, calm and cooperative. Speech: Clear, audible, normal rate/rhythm. Mood: Euthymic. Affect: Congruent with mood. Thought process: Circumstantial. Thought Content: Situational Cognition: Alert and oriented Insight: Fair Judgment: Fair Interventions PRN's used: Therapeutic interventions: provided 1:1 assessment, therapeutic communication and active listening, medication administration/education/monitoring, encouragement to attend groups, behavior monitoring and intervention as needed, verbal deescalation; Q 15 minute safety checks. Restraints/seclusion/emergency medication: N/A Justification of Continued Inpatient Treatment: Patient is LPS conserved and requires a safe and therapeutic environment. Patient was accepted to [facility], awaiting discharge date/time.
[2020-08-23] MEDS: traMADol 50MG tablet PO PRN (18:59)
[2020-08-23] MEDS: quetiapine 100mg tablet PO SCH (20:11)
[2020-08-23 20:29] VITALS: BP 109/80
[2020-08-23] MEDS: quetiapine 100mg tablet PO PRN (21:26)
--- NOTE | 2020-08-24 00:07 | NUR ---
NURSING PROGRESS NOTE Legal hold: LPS Report received from MARTINA Forrest with use of SBAR. Why are they here: Patient decompensated at board and care; increasingly agitated with bizarre, paranoid and delusional statements. Access center assessed and brought to ED for evaluation and stabilization. Assessment What happened this shift: Pt comes to nurses station to say johnna at change of shift. Pt c/o shoulder pain and states he is having sharp pain. Pt spent time listening to headphones and states he has decided to 'become ghandi". Pt reports he had a bm earlier today and states he doesnt like to go a lot because he is a man and wants to gain weight. He states "Only women like to lose weight." Reminded patient that we need a stool sample. Pt states he knows. S/I, H/I: Denies A/VH: Denies Sleep: pt had difficult time falling asleep took prn see sleep hours ADL's: Independent Group attendance: Yes. Were Meds taken: Yes. Any med S/E: Not observed nor reported Mental Status Exam Appearance: Neat, wearing his dress jacket and ball cap. Eye contact: Good Behavior: Pleasant, calm and cooperative. Speech: Clear, audible, normal rate/rhythm. Mood: Euthymic. Affect: Congruent with mood. Thought process: Circumstantial. Thought Content: becoming ghandi, shoulder pain Cognition: Alert and oriented Insight: Fair Judgment: Fair Interventions PRN's used: seroquel Therapeutic interventions: provided 1:1 assessment, therapeutic communication and active listening, medication administration/education/monitoring, encouragement to attend groups, behavior monitoring and intervention as needed, verbal deescalation; Q 15 minute safety checks. Restraints/seclusion/emergency medication: N/A Justification of Continued Inpatient Treatment: Patient is LPS conserved and requires a safe and therapeutic environment. Patient was accepted to [facility], awaiting discharge date/time.
[2020-08-24] MEDS: pantoprazole 40mg Tablet.DR PO SCH (07:35)
[2020-08-24] MEDS: naproxen 500mg tablet PO SCH ×2 (07:35→17:27)
[2020-08-24] MEDS: trihexyphenidyl HCL 5 MG tablet PO SCH ×3 (07:36→19:36)
[2020-08-24] MEDS: haloperidol 5mg tablet PO SCH ×3 (07:36→20:36)
[2020-08-24] MEDS: LORazepam 0.5 MG tablet PO SCH ×2 (07:36→17:27)
[2020-08-24] MEDS: divalproex sod 250mg ER (24-hour) tablet PO SCH ×2 (07:39→20:36)
[2020-08-24] MEDS: carbamide peroxide 15ml bottle EACH EAR SCH ×2 (07:42→19:37)
[2020-08-24 08:00] VITALS: BP 136/93
[2020-08-24] MEDS: PEG 400/HYPROMELLOSE/GLYCERIN 15ml bottle EACHEYE PRN (09:39)
--- NOTE | 2020-08-24 14:41 | NUR ---
NURSING PROGRESS NOTE Legal hold: LPS Report received from MARTINA Fish with use of SBAR. Why are they here: Patient decompensated at board and care; increasingly agitated with bizarre, paranoid and delusional statements. Access center assessed and brought to ED for evaluation and stabilization. Assessment What happened this shift: Pt. awake at shift change walking around requesting coffee and medications early, which were provided. Patient reports that he is having a good day. Patient states that he is jealous of his roommate because he is discharging and that he has to stay here. He wonders when his placement will go through. Patient is medication compliant, eats 100% of his meals. Pt. was reminded today to save his stool in hat provided, but so far patient has not had BM, and still needs stool sent to lab. S/I, H/I: Denies A/VH: Denies Sleep: Pt napped after breakfast. ADL's: Independent Group attendance: Yes. Were Meds taken: Yes. Any med S/E: Not observed nor reported Mental Status Exam Appearance: Tall slim male wearing lama suit and baseball cap. Eye contact: Good Behavior: Pleasant, calm and cooperative. Speech: Clear, audible, normal rate/rhythm. Mood: Euthymic. Affect: Congruent with mood. Thought process: Circumstantial. Thought Content: Focused on when he will be discharged. Cognition: Alert and oriented Insight: Fair Judgment: Fair Interventions PRN's used: Therapeutic interventions: provided 1:1 assessment, therapeutic communication and active listening, medication administration/education/monitoring, encouragement to attend groups, behavior monitoring and intervention as needed, verbal deescalation; Q 15 minute safety checks. Restraints/seclusion/emergency medication: N/A Justification of Continued Inpatient Treatment: Patient is LPS conserved and requires a safe and therapeutic environment. Patient was accepted to [facility], awaiting discharge date/time.
[2020-08-24 17:59] LABS: OCCULT BLOOD STOOL NEGATIVE (Neg)
[2020-08-24] MEDS: quetiapine 100mg tablet PO SCH (19:37)
[2020-08-24 20:24] VITALS: BP 122/84
[2020-08-24 20:27] VITALS: BP 122/84
[2020-08-24] MEDS: quetiapine 100mg tablet PO PRN (20:38)
--- NOTE | 2020-08-24 22:54 | NUR ---
NURSING PROGRESS NOTE Legal hold: LPS Report received from Yari MACK with use of SBAR. Why are they here: Patient decompensated at board and care; increasingly agitated with bizarre, paranoid and delusional statements. Access center assessed and brought to ED for evaluation and stabilization. Assessment What happened this shift: Pt was listening to headphones at change of shift, he states he is in a good mood. Pt later asked his roommate if he was ok, and when his roommate responded pt became defensive and agitated shouting "well it's not my fault!" Pt left the room and continued listening to the headphones. Pt had a snack took evening meds and went to bed. S/I, H/I: Denies A/VH: Denies Sleep: see sleep hours, sleeps well at night ADL's: Independent Group attendance: Yes. Were Meds taken: Yes. Any med S/E: Not observed nor reported Mental Status Exam Appearance: Tall slim male wearing lama suit and baseball cap. Eye contact: Good Behavior: Pleasant, calm and cooperative. Speech: Clear, audible, normal rate/rhythm. Mood: Euthymic. Affect: Congruent with mood. Thought process: Circumstantial. Thought Content: Focused on when he will be discharged. Cognition: Alert and oriented Insight: Fair Judgment: Fair Interventions PRN's used: seroquel Therapeutic interventions: provided 1:1 assessment, therapeutic communication and active listening, medication administration/education/monitoring, encouragement to attend groups, behavior monitoring and intervention as needed, verbal deescalation; Q 15 minute safety checks. Restraints/seclusion/emergency medication: N/A Justification of Continued Inpatient Treatment: Patient is LPS conserved and requires a safe and therapeutic environment. Patient was accepted to [facility], awaiting discharge date/time.
[2020-08-25] MEDS: haloperidol 5mg tablet PO SCH ×3 (07:32→20:20)
[2020-08-25] MEDS: trihexyphenidyl HCL 5 MG tablet PO SCH ×3 (07:32→19:53)
[2020-08-25] MEDS: divalproex sod 250mg ER (24-hour) tablet PO SCH ×2 (07:32→20:21)
[2020-08-25] MEDS: LORazepam 0.5 MG tablet PO SCH ×2 (07:32→17:18)
[2020-08-25] MEDS: pantoprazole 40mg Tablet.DR PO SCH (07:32)
[2020-08-25 08:00] VITALS: BP 120/75
[2020-08-25] MEDS: naproxen 500mg tablet PO SCH ×2 (08:39→17:18)
[2020-08-25] MEDS: carbamide peroxide 15ml bottle EACH EAR SCH ×2 (08:40→19:57)
[2020-08-25] MEDS: quetiapine 100mg tablet PO PRN (14:47)
[2020-08-25] MEDS: LORazepam 1 MG tablet PO PRN (14:47)
[2020-08-25] MEDS: traMADol 50MG tablet PO PRN (17:21)
--- NOTE | 2020-08-25 18:02 | NUR ---
NURSING PROGRESS NOTE Legal hold: LPS Report received from MARTINA Fish with use of SBAR. Why are they here: Patient decompensated at board and care; increasingly agitated with bizarre, paranoid and delusional statements. Access center assessed and brought to ED for evaluation and stabilization. Assessment What happened this shift: Pt. awake at start of shift. Pt. is friendly and responds to this RNs greeting. Pt. reports he slept well. Pt. took medications and ate all meals in the community room. 1:1 done at bedside. Pt. denies SI/HI, A/V hallucinations. However, pt. appears to be responding to internal stimuli. Pt. pleasant during the morning. After lunch pt. began talking loudly in the rec room, stating, There are men trying to inseminate these women. Staff attempted reality testing but pt. became more irritable when delusions challenged. RN offered PRN of Seroquil 100mg and Ativan 1mg po and pt. accepted with good effect. Pt. napped for 2 hours in the afternoon. Pt. requested tramadol in afternoon for 7/10 shoulder pain and received with good effect. S/I, H/I: Denies A/VH: Denies Sleep: Pt. napped 1 hour in the AM and 2 hours in the afternoon. ADL's: Independent Group attendance: No Were Meds taken: Yes. Any med S/E: Denies Mental Status Exam Appearance: Tall slim male wearing lama suit, lama suit pants, and baseball cap. Eye contact: Good Behavior: Pleasant and calm in the AM, becoming agitated in the afternoon. Speech: Clear, audible, normal rate/rhythm. Mood: Euthymic in the AM, becoming agitated in the afternoon. Affect: Congruent with mood. Thought process: Circumstantial. Thought Content: Focused on snacks and coffee Cognition: Alert and oriented Insight: Fair Judgment: Fair Interventions PRN's used: Seroquil 100mg and Ativan 1mg x1 Therapeutic interventions: provided 1:1 assessment, therapeutic communication and active listening, medication administration/education/monitoring, encouragement to attend groups, behavior monitoring and intervention as needed, verbal deescalation; Q 15 minute safety checks. Restraints/seclusion/emergency medication: N/A Justification of Continued Inpatient Treatment: Patient is LPS conserved and requires a safe and therapeutic environment. Patient was accepted to [facility], awaiting discharge date/time.
[2020-08-25] MEDS: quetiapine 100mg tablet PO SCH (19:53)
[2020-08-25 20:04] VITALS: BP 118/83
--- NOTE | 2020-08-26 00:18 | NUR ---
NURSING PROGRESS NOTE Legal hold: LPS Report received from MARTINA Skinner with use of SBAR. Why are they here: Patient decompensated at board and care; increasingly agitated with bizarre, paranoid and delusional statements. Access center assessed and brought to ED for evaluation and stabilization. Assessment What happened this shift: Pt was in the rec room watching tv at change of shift. Pt states he had a good day. He spent much of the evening watching a tv show before having a snack and going to bed. "Can you please get my water for me, I'm too lazy to get up, I'm watching a show about [place] So." Pt is med compliant. Discussed rinsing patients ears after debrox drops and he states "I dont want to do that on my bed." Pt changed into his pajamas and fell asleep. S/I, H/I: Denies A/VH: Denies Sleep: see sleep hours ADL's: Independent Group attendance: No Were Meds taken: Yes. Any med S/E: Denies Mental Status Exam Appearance: Tall slim male wearing lama suit, lama suit pants, and baseball cap. Eye contact: Good Behavior: Pleasant and calm Speech: Clear, audible, normal rate/rhythm. Mood: euthymic Affect: Congruent with mood. Thought process: Circumstantial. Thought Content: Focused on snacks and watching tv Cognition: Alert and oriented Insight: Fair Judgment: Fair Interventions PRN's used: Seroquel Therapeutic interventions: provided 1:1 assessment, therapeutic communication and active listening, medication administration/education/monitoring, encouragement to attend groups, behavior monitoring and intervention as needed, verbal deescalation; Q 15 minute safety checks. Restraints/seclusion/emergency medication: N/A Justification of Continued Inpatient Treatment: Patient is LPS conserved and requires a safe and therapeutic environment. Patient was accepted to [facility], awaiting discharge date/time.
[2020-08-26] MEDS: LORazepam 1 MG tablet PO PRN (03:30)
[2020-08-26] MEDS: pantoprazole 40mg Tablet.DR PO SCH (07:19)
[2020-08-26] MEDS: haloperidol 5mg tablet PO SCH ×3 (07:19→20:59)
[2020-08-26] MEDS: trihexyphenidyl HCL 5 MG tablet PO SCH ×3 (07:19→20:57)
[2020-08-26] MEDS: naproxen 500mg tablet PO SCH ×2 (07:20→17:07)
[2020-08-26] MEDS: LORazepam 0.5 MG tablet PO SCH ×2 (07:20→17:07)
[2020-08-26] MEDS: divalproex sod 250mg ER (24-hour) tablet PO SCH ×2 (07:21→20:56)
[2020-08-26 08:00] VITALS: BP 104/72
[2020-08-26] MEDS: carbamide peroxide 15ml bottle EACH EAR SCH ×2 (08:44→20:00)
[2020-08-26] MEDS: acetaminophen 325mg tablet PO PRN (08:44)
[2020-08-26] MEDS: PEG 400/HYPROMELLOSE/GLYCERIN 15ml bottle EACHEYE PRN (08:45)
--- NOTE | 2020-08-26 13:16 | NUR ---
NURSING PROGRESS NOTE Legal hold: LPS Report received from MARTINA Barron with use of SBAR Why are they here: Patient decompensated at board and care; increasingly agitated with bizarre, paranoid and delusional statements. Access center assessed and brought to ED for evaluation and stabilization. Assessment What happened this shift: Up early and walking in hallway. States he feels "fine" today. Pleasant and cooperative. Sleepiness today, took a few naps. No delusional statements today, but not engaging much. Received debrox ear drops and eye drops for lubrication. Takes all medications as prescribed. No other changes. S/I, H/I: Denies A/VH: Denies Sleep: napped ADL's: Independent Group attendance: No Were Meds taken: Yes. Any med S/E: Denies Mental Status Exam Appearance: slightly disheveled Eye contact: Good Behavior: Pleasant and calm Speech: Clear, audible, slowed Mood: Euthymic Affect: Congruent with mood Thought process: Circumstantial Thought Content: getting his needs met Cognition: Alert Insight: Fair Judgment: Fair Interventions PRN's used: None Therapeutic interventions: provided 1:1 assessment, therapeutic communication and active listening, medication administration/education/monitoring, encouragement to attend groups, behavior monitoring and intervention as needed, verbal deescalation; Q 15 minute safety checks. Restraints/seclusion/emergency medication: N/A Justification of Continued Inpatient Treatment: Patient is LPS conserved and requires a safe and therapeutic environment. Patient was accepted to [facility], awaiting discharge date/time.
[2020-08-26 19:00] VITALS: BP 119/73
[2020-08-26] MEDS: quetiapine 100mg tablet PO SCH (21:00)
--- NOTE | 2020-08-27 01:20 | NUR ---
NURSING PROGRESS NOTE Legal hold: LPS Report received from MARTINA Skinner with use of SBAR Why are they here: Patient decompensated at board and care; increasingly agitated with bizarre, paranoid and delusional statements. Access center assessed and brought to ED for evaluation and stabilization. Assessment What happened this shift: Patient ambulates hallways and listens to music on headphones. Patient smiles when addressed. Patient tells this marketing writer that he is feeling pretty good, he then states he is "happy and sad, I'm alvarez." Patient states he was upset during the day as he is not good at art work, being prompted to do art work reminded him of a pomology teacher who yelled at him because he couldn't perform well. The patient denies S/I or H/I, he denies hallucinations at this time. Patient had both ears irrigated by this marketing writer, large clumps of ear wax were evacuated from each ear, the patient tolerated well. Patient is medication compliant. He did have a BM today. S/I, H/I: Denies. A/VH: Denies. Sleep: napped ADL's: Independent. Group attendance: None on bill sorter. Were Meds taken: Yes. Any med S/E: Denies. Mental Status Exam Appearance: Disheveled looking. Patient wearing a suit. Eye contact: Good. Behavior: Pleasant, calm and cooperative. Speech: Clear, regular rate, rhythm and tone. Mood: Euthymic. Affect: Congruent with mood. Thought process: Circumstantial. Thought Content: Getting his needs met. Cognition: Alert, Oriented to person and place. Insight: Fair. Judgment: Fair. Interventions PRN's used: None. Therapeutic interventions: provided 1:1 assessment, therapeutic communication and active listening, medication administration/education/monitoring, encouragement to attend groups, behavior monitoring and intervention as needed, verbal deescalation; Q 15 minute safety checks. Restraints/seclusion/emergency medication: N/A Justification of Continued Inpatient Treatment: Patient is LPS conserved and requires a safe and therapeutic environment. Patient was accepted to [facility], awaiting discharge date/time.
[2020-08-27] MEDS: traMADol 50MG tablet PO PRN (05:58)
[2020-08-27 07:34] VITALS: BP 104/69
[2020-08-27] MEDS: LORazepam 0.5 MG tablet PO SCH ×2 (07:52→16:29)
[2020-08-27] MEDS: pantoprazole 40mg Tablet.DR PO SCH (07:53)
[2020-08-27] MEDS: divalproex sod 250mg ER (24-hour) tablet PO SCH ×2 (07:54→20:23)
[2020-08-27] MEDS: haloperidol 5mg tablet PO SCH ×3 (07:54→20:24)
[2020-08-27] MEDS: naproxen 500mg tablet PO SCH ×2 (07:55→17:44)
[2020-08-27] MEDS: carbamide peroxide 15ml bottle EACH EAR SCH (08:00)
[2020-08-27] MEDS: trihexyphenidyl HCL 5 MG tablet PO SCH ×3 (08:07→20:23)
[2020-08-27] MEDS: LORazepam 1 MG tablet PO PRN (11:57)
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
[2020-08-27] MEDS: PEG 400/HYPROMELLOSE/GLYCERIN 15ml bottle EACHEYE PRN (18:12)
--- NOTE | 2020-08-27 18:19 | NUR ---
COVID TEST Called Dr. Rose for order for Covid test for [facility]. Order is approved, but she advised to wait to administer the rapid test until within 24 hours of discharge so that a second Covid test would not need to be administered prior to discharge.
[2020-08-27 19:00] VITALS: BP 126/79
[2020-08-27] MEDS: quetiapine 100mg tablet PO SCH (20:23)
--- NOTE | 2020-08-28 02:02 | NUR ---
NURSING PROGRESS NOTE Legal hold: LPS Report received from MARTINA Skinner with use of SBAR Why are they here: Patient decompensated at board and care; increasingly agitated with bizarre, paranoid and delusional statements. Access center assessed and brought to ED for evaluation and stabilization. Assessment What happened this shift: Patient ambulates the hallways listening to music on headphones. Patient tells this technical writer "I'm having better and better days, I'm looking forward to my move. Patient smiles a lot, he is upbeat. He denies any hallucinations. S/I, H/I: Denies. A/VH: Denies. Sleep: napped ADL's: Independent. Group attendance: None on night assistant. Were Meds taken: Yes. Any med S/E: Denies. Mental Status Exam Appearance: Disheveled looking. Patient wearing a suit. Eye contact: Good. Behavior: Pleasant, calm and cooperative. Speech: Clear, regular rate, rhythm and tone. Mood: Euthymic. Affect: Congruent with mood. Thought process: Circumstantial. Thought Content: Getting his needs met. Cognition: Alert, Oriented to person and place. Insight: Fair. Judgment: Fair. Interventions PRN's used: None. Therapeutic interventions: provided 1:1 assessment, therapeutic communication and active listening, medication administration/education/monitoring, encouragement to attend groups, behavior monitoring and intervention as needed, verbal deescalation; Q 15 minute safety checks. Restraints/seclusion/emergency medication: N/A Justification of Continued Inpatient Treatment: Patient is LPS conserved and requires a safe and therapeutic environment. [facility] was [facility] to [facility], awaiting discharge date/time.
[2020-08-28] MEDS: traMADol 50MG tablet PO PRN (06:12)
[2020-08-28 07:45] VITALS: BP 111/74
[2020-08-28] MEDS: trihexyphenidyl HCL 5 MG tablet PO SCH ×3 (08:07→20:37)
[2020-08-28] MEDS: haloperidol 5mg tablet PO SCH ×3 (08:07→20:38)
[2020-08-28] MEDS: pantoprazole 40mg Tablet.DR PO SCH (08:08)
[2020-08-28] MEDS: naproxen 500mg tablet PO SCH ×2 (08:08→17:29)
[2020-08-28] MEDS: LORazepam 0.5 MG tablet PO SCH ×2 (08:08→17:29)
[2020-08-28] MEDS: divalproex sod 250mg ER (24-hour) tablet PO SCH ×2 (08:08→20:38)
[2020-08-28] MEDS: PEG 400/HYPROMELLOSE/GLYCERIN 15ml bottle EACHEYE PRN (10:08)
--- NOTE | 2020-08-28 10:15 | NUR ---
Individual session: Met with pt, appeared very pleasant smiling and stated he is hoping that he is accepted at [facility]. Stated he was frustrated when he heard original plan for placement was [facility] and due to problems at that facility unable Conservator unable to place and now pt said he is glad of their problems because now good chance of staying local at [facility]. Also went on to say he had his ears cleaned out, can't tell the difference with hearing but feels good that his ears are cleaned. Antonino,RELEASE SPECIALIST
--- NOTE | 2020-08-28 14:13 | NUR ---
NURSING PROGRESS NOTE Legal hold: LPS Report received from RN with use of SBAR Why are they here: Pt decompensated at board and care; increasingly agitated with bizarre, paranoid and delusional statements. Access center assessed and brought to ED for evaluation and stabilization. Assessment What happened this shift: Received Pt in bed sleeping w/o distress at change of shift. Pt woke and was cooperative with vitals and AM meds. Pt ate all meals well in community room and tolerated being around others and having short conversations with others as well Pt in pleasant mood and brighter than usual today. Pt watched TV, played with his coin and told stories about it, listened to music and walked halls at times. Hardik stated his eyes were dry and eye drops were used with good effect. Pt singing at one point and laughing with staff. Pt tolerated Qs and assessments well. S/I, H/I: Pt denies A/VH: Endorses A/H Sleep: None this shift ADL's: Independent Group attendance: No Were Meds taken: Yes Any med S/E: None noted or reported Mental Status Exam Appearance: Neat in suit jacket Eye contact: Good Behavior: Pleasant, calm Speech: Clear, audible, loud Mood: Euthymic Affect: Constricted Thought process: Circumstantial Thought Content: Being able to hear better Cognition: A/O X 3 Insight: Fair Judgment: Fair Interventions PRN's used: Artificial tears Therapeutic interventions: provided 1:1 assessment, therapeutic communication and active listening, medication administration/education/monitoring, encouragement to attend groups, behavior monitoring and intervention as needed; verbal de-escalation, limit setting, Q 15 minute safety checks. Restraints/seclusion/emergency medication: N/A Justification of Continued Inpatient Treatment: Patient is LPS conserved and requires a safe and therapeutic environment until appropriate placement found.
[2020-08-28 20:00] VITALS: BP 122/77
[2020-08-28] MEDS: quetiapine 100mg tablet PO SCH (20:38)
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
[2020-08-29] MEDS: traMADol 50MG tablet PO PRN (05:57)
[2020-08-29 07:42] VITALS: BP 107/70
[2020-08-29] MEDS: divalproex sod 250mg ER (24-hour) tablet PO SCH ×2 (07:59→20:23)
[2020-08-29] MEDS: naproxen 500mg tablet PO SCH ×2 (07:59→17:07)
[2020-08-29] MEDS: trihexyphenidyl HCL 5 MG tablet PO SCH ×3 (07:59→20:22)
[2020-08-29] MEDS: haloperidol 5mg tablet PO SCH ×3 (08:00→20:21)
[2020-08-29] MEDS: LORazepam 0.5 MG tablet PO SCH ×2 (08:00→17:08)
[2020-08-29] MEDS: pantoprazole 40mg Tablet.DR PO SCH (08:00)
--- NOTE | 2020-08-29 10:00 | NUR ---
Group Therapy: Process Group This Clinicians goals for this process group were as follows: (1) Ask scaling questions about Patients current anxiety, depression, and irritability symptoms as a check-in. (2) Share with Patients psychoeducation about the importance of being able to identify safe, and supportive people who can assist them with their mental and emotional needs. (3) Share psychoeducation on interpersonal boundaries and considerations to assist Patients in developing the ability to discern which groups and individuals will be helpful in assisting them during times of emotional escalation and crisis. (4) Engage Patients in discussion of the topics discussed within the group milieu. Patient identified experiencing the following levels of anxiety, depression, and anger/irritability while present in the group milieu (0-low; 10-High). Anxiety: 4-5 Depression: 10 Anger/irritability: /10 Patient presented as properly oriented x4 during the process group. Patient was dressed in nondescript, personal clothing that were appropriate within the milieu. He wore a [employer] baseball hat, a dark smallwood suit jacket over a purple shirt, with dark smallwood slacks. Psychomotor activity was unremarkable. Patient's thought content varied between being clear, and coherent, and delusional. Patient's thought process varied between clear, coherent, and linear, and being delusional--marked by flight of ideas, tangential thinking, and psychosis. On one occasions, Patient referenced a foreign language that had been taught to him in school. Upon questioning by this Clinician, Patient was referring to the "ABCs" alphabet that is taught in school. He also talked about how he believed he could share, "One mind," with other people, and that sometimes he wondered if the voices in his head, could talk to other, "Unknown," voices inside his head. This Clinician did not observe Patient responding to any internal stimuli during session. The rate, and latency of Client's speech was within normal limits. His tone of voice tended to be loud. Patient maintained regular eye contact with this Clinician. Patient presented in calm euthymic mood, with restricted affect during the process group. Patient presented as open, cooperative, verbally engaged and minimally intrusive within the group milieu. This Clinician had to verbally redirect Patient on a couple of occasions, as he interrupted his peers with some crosstalk. However, Patient was easily redirected. Patient verbalized awareness that it was not indicated to over-share specifics of his mental health condition with strangers as they could potentially take advantage of him. He also was able to identify several support people such as: comp field case manager, psychologists, social workers and the [facility] team, and psychiatrists as support people he could turn to to assist him with his mental health situation as needed. Angelo Marks MA, LMFT Addendum: 08/29/20 at 1141 by Angelo Marks SS Amended: Links added.
--- NOTE | 2020-08-29 10:26 | NUR ---
NURSING PROGRESS NOTE Legal hold: LPS Report received from Veronica Jones RN with use of SBAR Why are they here: Pt decompensated at board and care; increasingly agitated with bizarre, paranoid and delusional statements. Access center assessed and brought to ED for evaluation and stabilization. Pt is LPS. Assessment What happened this shift: Pt up and visible on the unit early this am. Pt dressed in his suit and a baseball hat. Pt pacing and listening to music on the headphones. Pt c/o pain when he awoke, but had taken ultram and now says the pain was gone. Pt was smiling and joking with the provider and stated, I love this place. Pt denies auditory hallucinations and exhibited no evidence of delusional thoughts this am. Pt denies suicidal thoughts. S/I, H/I: Pt denies A/VH: denies this am Sleep: None this shift ADL's: Independent Group attendance: No Were Meds taken: Yes Any med S/E: None noted or reported Mental Status Exam Appearance: Neat in suit jacket Eye contact: Good Behavior: Pleasant, calm Speech: Clear, audible, loud Mood: Euthymic Affect: Constricted Thought process: Circumstantial Thought Content: Being able to hear better Cognition: A/O X 3 Insight: Fair Judgment: Fair Interventions PRN's used: Artificial tears Therapeutic interventions: provided 1:1 assessment, therapeutic communication and active listening, medication administration/education/monitoring, encouragement to attend groups, behavior monitoring and intervention as needed; verbal de-escalation, limit setting, Q 15 minute safety checks. Restraints/seclusion/emergency medication: N/A Justification of Continued Inpatient Treatment: Patient is LPS conserved and requires a safe and therapeutic environment until appropriate placement found. Addendum: 08/29/20 at 1638 by Yari Davison RN HOSPITALIST PAGE sent regarding low RBC's, HCT, Hgb and TIBC as well as the neg Stool Sample results.
[2020-08-29 20:23] VITALS: BP 133/79
[2020-08-29] MEDS: quetiapine 100mg tablet PO SCH (20:24)
--- NOTE | 2020-08-29 21:56 | NUR ---
Nursing Progress Note: Legal hold: LPS Client on involuntary status for GD Report received from Lon MACK with use of SBAR. Why are they here: Pt decompensated at board and care; increasingly agitated with bizarre, paranoid and delusional statements. Access center assessed and brought to ED for evaluation and stabilization. Assessment What has happened this shift: Pt is upbeat this shift and is social out on the unit at shift change. He eats snack with his peers happily while watching TV. Pt makes good eye contact and takes his HS medications without issue. His speech is loud , clear, and direct. PT had his face shaved today and is very excited about this. 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 Pt is cooperative with 1:1 assessment. He denies SI/HI/AH/VH. S/I, H/I: Pt denies A/VH: denies at this time, but appears to be internally preoccupied at times Sleep: see sleep assessment notation ADL's: Independent. Group attendance: yes Were meds taken: Yes Any med S/E: None noted or reported Mental Status Exam Appearance: neat, clean Eye contact: Good Behavior: Paces the unit, socializes Speech: Speaks in a slow drawl, clear, audible, loud at times. Mood: upbeat Affect: Pleasant, congruent with mood Thought process: Delusional Thought Content: circumstantial Cognition: A/O X 3, disoriented to situation. Insight: Poor Judgment: Poor Interventions PRN's used:na Therapeutic interventions: 1:1 assessment,provided clear and simple instructions, active listening, therapeutic conversation, medication administration/education/monitoring, behavior monitoring and intervention; reality orientation, limit setting, verbal de-escalation, redirection, positive reinforcement, Q 15 minute safety checks. Restraints/seclusion/emergency medication: N/A Justification of Continued Inpatient Treatment: Patient needs interruption of current crisis with adjustment of medication in a safe and therapeutic environment, waiting placement
[2020-08-30] MEDS: quetiapine 100mg tablet PO PRN (00:16)
[2020-08-30] MEDS: pantoprazole 40mg Tablet.DR PO SCH (07:39)
[2020-08-30] MEDS: trihexyphenidyl HCL 5 MG tablet PO SCH ×3 (07:39→20:18)
[2020-08-30] MEDS: FERROUS SULFATE 142 MG TABLET.ER (45mg elemental) PO SCH (07:40)
[2020-08-30] MEDS: haloperidol 5mg tablet PO SCH ×3 (07:40→20:17)
[2020-08-30] MEDS: LORazepam 0.5 MG tablet PO SCH ×2 (07:41→17:10)
[2020-08-30] MEDS: divalproex sod 250mg ER (24-hour) tablet PO SCH ×2 (07:42→20:17)
[2020-08-30 08:00] VITALS: BP 120/78
[2020-08-30] MEDS: naproxen 500mg tablet PO SCH ×2 (08:31→17:10)
--- NOTE | 2020-08-30 11:51 | NUR ---
Reassessment: Pt continues with average 75-100% PO intake on regular diet meeting estimated nutrient needs. [facility] [place]. No nutrition intervention warranted at this time. Will continue to follow. Recommend: 1. continue regular diet 2. routine bowel care 3. wt per rx Addendum: 08/30/20 at [address] Amended: Links added.
[2020-08-30] MEDS: PEG 400/HYPROMELLOSE/GLYCERIN 15ml bottle EACHEYE PRN (13:51)
--- NOTE | 2020-08-30 13:55 | NUR ---
NURSING PROGRESS NOTE Legal hold: LPS Report received from Polina MACK with use of SBAR Why are they here: Pt decompensated at board and care; increasingly agitated with bizarre, paranoid and delusional statements. Access center assessed and brought to ED for evaluation and stabilization. Pt is LPS. Assessment What happened this shift: Patient was laying down at change of shift and up soon after. Patient appears quiet and a little depressed today. Patient still has gotten upset at his peers and accuses them of things they didn't do. Patient states he is doing "Okay". Patient denies suicidal/homicidal ideation. Patient denies audio/visual hallucinations. Patient talks about being clean shaven and how good he looks. Patient is pleasant with staff. Patient is now on Iron for a low RBCs. S/I, H/I: Pt denies A/VH: denies t Sleep: None this shift ADL's: Independent Group attendance: No Were Meds taken: Yes Any med S/E: None noted or reported Mental Status Exam Appearance: Neat in suit jacket Eye contact: Good Behavior: Pleasant, calm, accusatory of peers Speech: Clear, audible, loud Mood: Euthymic Affect: Flat Thought process: Circumstantial Thought Content: Cognition: A/O X 3 Insight: Fair Judgment: Fair Interventions PRN's used: Artificial tears Therapeutic interventions: provided 1:1 assessment, therapeutic communication and active listening, medication administration/education/monitoring, encouragement to attend groups, behavior monitoring and intervention as needed; verbal de-escalation, limit setting, Q 15 minute safety checks. Restraints/seclusion/emergency medication: N/A Justification of Continued Inpatient Treatment: Patient is LPS conserved and requires a safe and therapeutic environment until appropriate placement found.
--- NOTE | 2020-08-30 17:19 | NUR ---
CM/DCP Presenting Issues: PRIMO was informed by [facility] office that pt will be picked up by his public guardian on 09/08 to transition to [facility]. 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 Plan: SS to monitor dcp. Lana Vidal LCSW Addendum: 08/30/20 at 1721 by Lana TILLMAN Amended: Links added.
[2020-08-30] MEDS: traMADol 50MG tablet PO PRN (18:54)
[2020-08-30 20:00] VITALS: BP 124/79
[2020-08-30] MEDS: quetiapine 100mg tablet PO SCH (20:16)
--- NOTE | 2020-08-30 21:52 | NUR ---
Nursing Progress Note: Legal hold: LPS Client on involuntary status for GD Report received from Lon MACK with use of SBAR. Why are they here: Pt decompensated at board and care; increasingly agitated with bizarre, paranoid and delusional statements. Access center assessed and brought to ED for evaluation and stabilization. Assessment What has happened this shift: Pt is upbeat and smiling at shift change. He walks the halls talking to staff. 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 He denies SI/HI/AH/VH. S/I, H/I: Pt denies A/VH: denies at this time Sleep: see sleep assessment notation ADL's: Independent. Group attendance: yes Were meds taken: Yes Any med S/E: None noted or reported Mental Status Exam Appearance: neat, clean Eye contact: Good Behavior: Paces the unit, socializes Speech: Speaks in a slow drawl, clear, audible, loud at times. Mood: upbeat Affect: Pleasant, congruent with mood Thought process: Delusional Thought Content: circumstantial Cognition: A/O X 3, disoriented to situation. Insight: Poor Judgment: Poor Interventions PRN's used: tylenol Therapeutic interventions: 1:1 assessment,provided clear and simple instructions, active listening, therapeutic conversation, medication administration/education/monitoring, behavior monitoring and intervention; reality orientation, limit setting, verbal de-escalation, redirection, positive reinforcement, Q 15 minute safety checks. Restraints/seclusion/emergency medication: N/A Justification of Continued Inpatient Treatment: Patient needs interruption of current crisis with adjustment of medication in a safe and therapeutic environment, waiting placement
[2020-08-31] MEDS: acetaminophen 325mg tablet PO PRN (04:55)
[2020-08-31] MEDS: PEG 400/HYPROMELLOSE/GLYCERIN 15ml bottle EACHEYE PRN (07:01)
[2020-08-31] MEDS: haloperidol 5mg tablet PO SCH ×3 (07:44→20:31)
[2020-08-31] MEDS: trihexyphenidyl HCL 5 MG tablet PO SCH ×3 (07:45→20:31)
[2020-08-31] MEDS: LORazepam 0.5 MG tablet PO SCH ×2 (07:45→17:51)
[2020-08-31] MEDS: pantoprazole 40mg Tablet.DR PO SCH (07:46)
[2020-08-31] MEDS: divalproex sod 250mg ER (24-hour) tablet PO SCH ×2 (07:46→20:32)
[2020-08-31] MEDS: FERROUS SULFATE 142 MG TABLET.ER (45mg elemental) PO SCH (07:47)
[2020-08-31 07:55] VITALS: BP 109/69
[2020-08-31] MEDS: naproxen 500mg tablet PO SCH ×2 (09:40→17:51)
--- NOTE | 2020-08-31 10:00 | NUR ---
Group Therapy: Process Group This Clinicians goals for this process group were as follows: (1) Ask scaling questions about Patients current anxiety, depression, and irritability symptoms as a check-in. (2) Share psychoeducation about automatic thoughts and cognitive distortions. (3) Share psychoeducation on CBT thought-stopping and, thought-reframing. (4) Discuss strategies for identifying negative, unhelpful, and/or irrational thoughts as quickly as possible to avoid unwanted escalation of mental health symptoms. (5) Process Clients thoughts and reflections on this topic within the group milieu. Patient identified experiencing the following levels of anxiety, depression, and anger/irritability while present in the group milieu (0-low; 10-High). Anxiety: 0/10 Depression: 2/10 Anger/irritability: 2/10 Patient presented as properly oriented x4 during the process group. Patient was dressed in nondescript, personal clothing that were appropriate within the milieu. Patient wore a aCon baseball hat, a dark smallwood suit jacket over a purple t-shirt, with matching dark smallwood slacks. Psychomotor activity was unremarkable. Patient's thought content was clear, and concrete, but was marked by delusional content. Patient's thought process varied widely from being clear, coherent and linear to being marked by delusional thinking. This Clinician was able to successfully reframe Patient's delusional comments by acknowledging that he had spoken, or by thanking him for sharing, or by telling him that his thoughts must be important to him. Said interventions were successful in redirecting Patient. Hence, his delusional comments were only minimally disruptive to the process group milieu. This Clinician did not observe Patient responding to any internal stimuli during session. The rate, and latency of Patients speech was within normal limits. His tone of voice was loud. Patient interrupted this Clinician a few times to make comments; however, Patient frequently ceased this behavior when this Clinician held up his hand--indicating that he was still speaking. Patient maintained regular eye contact with this Clinician. Patient presented in calm euthymic mood, with restricted affect during the process group. Patient presented as open and cooperative, and was verbally engaged and only minimally intrusive within the group milieu. Besides occasional, delusional statements that this Clinician was able to redirect, Patient was an active participant in the group during the discussion on identifying different cognitive distortions along with principles of CBT thought-stopping and thought-reframing that one could utilize to identify more balanced/helpful/rational alternatives to said cognitive distortions. Occasionally Patient would offer one-word answers or brief phrases that indicated that he recognized the unhelpful nature of some cognitive distortions as this Clinician shared them during the process group. Angelo Marks MA, LEXIE Addendum: 08/31/20 at 1150 by Angelo Marks SS Amended: Links added.
--- NOTE | 2020-08-31 13:45 | NUR ---
NURSING PROGRESS NOTE Legal hold: LPS Report received from Polina MACK with use of SBAR Why are they here: Pt decompensated at board and care; increasingly agitated with bizarre, paranoid and delusional statements. Access center assessed and brought to ED for evaluation and stabilization. Pt is LPS. Assessment What happened this shift: Patient was up at change of shift and smiling while talking to peers. Patient is happier today and more social. Patient denies suicidal/homicidal ideation. Patient denies hearing voices. Patient watches T.V. in the Community Room or in the T.V. Room. Patient is talking about leaving next week. Patient is telling staff that he is going to [employer]. Patient had one incident where another patient was poking his chest but that was stopped by staff and everybody calmed down. Patient went to both groups today. S/I, H/I: Pt denies A/VH: denies Sleep: None this shift ADL's: Independent Group attendance: No Were Meds taken: Yes Any med S/E: None noted or reported Mental Status Exam Appearance: Neat in suit jacket, black shirt and cleanly shaven. Eye contact: Good Behavior: Pleasant Speech: Clear, audible, loud Mood: Euthymic Affect: Flat Thought process: Circumstantial Thought Content: [facility] Cognition: A/O X 3 Insight: Fair Judgment: Fair Interventions PRN's used: Artificial tears Therapeutic interventions: provided 1:1 assessment, therapeutic communication and active listening, medication administration/education/monitoring, encouragement to attend groups, behavior monitoring and intervention as needed; verbal de-escalation, limit setting, Q 15 minute safety checks. Restraints/seclusion/emergency medication: N/A Justification of Continued Inpatient Treatment: Patient is LPS conserved and requires a safe and therapeutic environment until appropriate placement found.
[2020-08-31] MEDS ORDERED: LIDOcaine 2% 5ml jelly TOP PRN (18:05)
[2020-08-31] MEDS: quetiapine 100mg tablet PO SCH (20:31)
[2020-08-31 20:49] VITALS: BP 112/65
[2020-08-31] MEDS: traMADol 50MG tablet PO PRN (21:03)
--- NOTE | 2020-08-31 23:06 | NUR ---
NURSING PROGRESS NOTE Legal hold: LPS Report received from Vinod RN with use of SBAR Why are they here: Pt decompensated at board and care; increasingly agitated with bizarre, paranoid and delusional statements. Access center assessed and brought to ED for evaluation and stabilization. Pt is LPS. Assessment What happened this shift: Pt was socializing with peers in the hallway at change of shift. He is in a pleasant mood talking about "the martian giving Bugs Bunny uranium p32 and changing him into a monster." Pt spent time socializing and watching a movie with peers. Pt requested prn tramadol for shoulder pain. Pt states "I get scared every night when I go to sleep because I think Im going to roll onto my shoulder and its going to hurt really bad." S/I, H/I: Pt denies A/VH: denies Sleep: None this shift ADL's: Independent Group attendance: No Were Meds taken: Yes Any med S/E: None noted or reported Mental Status Exam Appearance: Neat in suit jacket, black shirt and cleanly shaven. Eye contact: Good Behavior: Pleasant Speech: Clear, audible, loud Mood: Euthymic Affect: Flat Thought process: Circumstantial Thought Content: talking about bugs bunny the martian and [employer] Cognition: A/O X 3 Insight: Fair Judgment: Fair Interventions PRN's used: Artificial tears Therapeutic interventions: provided 1:1 assessment, therapeutic communication and active listening, medication administration/education/monitoring, encouragement to attend groups, behavior monitoring and intervention as needed; verbal de-escalation, limit setting, Q 15 minute safety checks. Restraints/seclusion/emergency medication: N/A Justification of Continued Inpatient Treatment: Patient is LPS conserved and requires a safe and therapeutic environment until appropriate placement found.
[2020-09-01] MEDS: acetaminophen 325mg tablet PO PRN (04:56)
[2020-09-01 07:29] VITALS: BP 105/74
[2020-09-01] MEDS: divalproex sod 250mg ER (24-hour) tablet PO SCH ×2 (07:59→20:09)
[2020-09-01] MEDS: pantoprazole 40mg Tablet.DR PO SCH (07:59)
[2020-09-01] MEDS: FERROUS SULFATE 142 MG TABLET.ER (45mg elemental) PO SCH (07:59)
[2020-09-01] MEDS: naproxen 500mg tablet PO SCH ×2 (07:59→17:01)
[2020-09-01] MEDS: LORazepam 0.5 MG tablet PO SCH ×2 (07:59→17:02)
[2020-09-01] MEDS: trihexyphenidyl HCL 5 MG tablet PO SCH ×3 (08:00→20:09)
[2020-09-01] MEDS: haloperidol 5mg tablet PO SCH ×3 (08:00→20:09)
--- NOTE | 2020-09-01 10:00 | NUR ---
Group Therapy: Process Group This Clinicians goals for this process group were as follows: (1) Ask scaling questions about Patients current anxiety, depression, and irritability symptoms as a check-in. (2) Share psychoeducation about self-efficacy, and ego strength. (3) Provide psychoeducation on [employer] Drama triangleVictim, Persecutor, Rescuer dynamic. (4) Share psychoeducation on developing positive ego strengthpositive affirmations, positive self-talk, transitioning from a victim of circumstances to a survivor of circumstances. (5) Process Clients thoughts and reflections on this topic within the group milieu. Patient presented as properly oriented to person, place, and situation during the process group. Patient was dressed in a [employer] baseball hat, a dark smallwood suit jacket over a purple shirt, with dark smallwood slacks and nonslip socks that were appropriate within the milieu. Psychomotor activity was unremarkable. Per this Clinician's impression, Patient appeared lethargic in his seat showing very little body movement, while seated in the process group. This Clinician was not able to fully assess Patient's thought process or content, as he only responded to this Clinician's greeting by saying, "Hello," which is all that she said within the group milieu before leaving. This Clinician did not observe Patient responding to any internal stimuli during session. The rate, latency, and tone of Patients speech was within normal limits. Patient made intermittent eye contact with this Clinician. Patient presented in calm mood, with restricted affect during the process group. Patient presented as cooperative, verbally subdued and nonobtrusive within the group milieu. He did not participate during the group discussion of ego strength, positive affirmations, and [employer] Drama [place]. Patient arrived to the process group approximately 35 minutes into the process group, and left approximately 5 minutes later. This Clinician was unable to ask Patient scaling questions about the acuity of his depression, anxiety, and anger/irritability before he left. Angelo Marks MA, RADIATION ONCOLOGY MANAGER Addendum: 09/01/20 at 1135 by Angelo TILLMAN Amended: Links added.
[2020-09-01] MEDS: traMADol 50MG tablet PO PRN (13:50)
--- NOTE | 2020-09-01 15:19 | NUR ---
NURSING PROGRESS NOTE Legal hold: LPS Report received from MARTINA Fish with use of SBAR Why are they here: Pt decompensated at board and care; increasingly agitated with bizarre, paranoid and delusional statements. Access center assessed and brought to ED for evaluation and stabilization. Pt is LPS. Assessment What happened this shift: The patient was awake and up on the unit at change of shift. Socializes at times with his peers and also isolates to the chair in his room. He is in good spirits, polite and cooperative. States, "Brijesh Prakash is related to my aunt on my mother's side, he you know." Scheduled to discharge to [facility] on . S/I, H/I: denies A/VH: denies Sleep: None this shift ADL's: Independent Group attendance: No Were Meds taken: Yes Any med S/E: None noted or reported Mental Status Exam Appearance: Neat in suit jacket, black shirt and cleanly shaven, wearing a mask Eye contact: Good Behavior: Pleasant Speech: Clear Mood: Euthymic Affect: Blunted Thought process: At times delusional Thought Content: believes he is related to Brijesh Prakash Cognition: Alert Insight: Fair Judgment: Fair Interventions PRN's used: tramadol Therapeutic interventions: provided 1:1 assessment, therapeutic communication and active listening, medication administration/education/monitoring, encouragement to attend groups, behavior monitoring and intervention as needed; verbal de-escalation, limit setting, Q 15 minute safety checks. Restraints/seclusion/emergency medication: N/A Justification of Continued Inpatient Treatment: Patient is LPS conserved and requires a safe and therapeutic environment until appropriate placement found.
[2020-09-01 19:40] VITALS: BP 112/85
[2020-09-01] MEDS: quetiapine 100mg tablet PO SCH (20:09)
--- NOTE | 2020-09-01 22:18 | NUR ---
NURSING PROGRESS NOTE Legal hold: LPS Report received from MARTINA Skinner with use of SBAR Why are they here: Pt decompensated at board and care; increasingly agitated with bizarre, paranoid and delusional statements. Access center assessed and brought to ED for evaluation and stabilization. Pt is LPS. Assessment What happened this shift: Pt was walking in the [place] tonight at change of shift and requested to listen to the headphones. Pt spent time in his room listening to music. Pt is in a pleasant mood, and requests prn for tooth pain. Pt states he is in a good mood and asks if he is doing good because he thinks he is doing good. S/I, H/I: denies A/VH: denies Sleep: see sleep hours ADL's: Independent Group attendance: No Were Meds taken: Yes Any med S/E: None noted or reported Mental Status Exam Appearance: Neat in suit jacket, black shirt and cleanly shaven, wearing a mask Eye contact: Good Behavior: Pleasant Speech: Clear Mood: Euthymic Affect: Blunted Thought process: At times delusional Thought Content: talking about music and about his tooth Cognition: Alert Insight: Fair Judgment: Fair Interventions PRN's used: Lydocaine Therapeutic interventions: provided 1:1 assessment, therapeutic communication and active listening, medication administration/education/monitoring, encouragement to attend groups, behavior monitoring and intervention as needed; verbal de-escalation, limit setting, Q 15 minute safety checks. Restraints/seclusion/emergency medication: N/A Justification of Continued Inpatient Treatment: Patient is LPS conserved and requires a safe and therapeutic environment until appropriate placement found.
[2020-09-02] MEDS: PEG 400/HYPROMELLOSE/GLYCERIN 15ml bottle EACHEYE PRN ×3 (05:25→21:02)
[2020-09-02] MEDS: traMADol 50MG tablet PO PRN ×2 (06:18→21:01)
[2020-09-02 07:32] VITALS: BP 106/72
[2020-09-02] MEDS: haloperidol 5mg tablet PO SCH ×3 (07:47→19:49)
[2020-09-02] MEDS: LORazepam 0.5 MG tablet PO SCH ×2 (07:47→17:00)
[2020-09-02] MEDS: pantoprazole 40mg Tablet.DR PO SCH (07:47)
[2020-09-02] MEDS: naproxen 500mg tablet PO SCH ×2 (07:47→17:00)
[2020-09-02] MEDS: trihexyphenidyl HCL 5 MG tablet PO SCH ×3 (07:48→19:50)
[2020-09-02] MEDS: FERROUS SULFATE 142 MG TABLET.ER (45mg elemental) PO SCH (07:48)
[2020-09-02] MEDS: divalproex sod 250mg ER (24-hour) tablet PO SCH ×2 (07:48→19:50)
[2020-09-02 08:00] VITALS: BP 106/72
--- NOTE | 2020-09-02 08:42 | NUR ---
PLACEMENT Presenting Issues: Pt's scheduled to d/c 09/08 and transfer to [facility] pending results of COVID Test and signed meds order. Interventions: SS reviewed MDT noted COVID Test results have been entered into pt's MDT. SS printed & faxed lab to Janice @ [facility]'s office to finalize transportation plans for pt. Plan: SS will ask attending phyisician for signed meds order and fax them to [facility]. SS to continue to monitor dcp. Lana Vidal LCSW Addendum: 09/02/20 at 0847 by Lana Vidal Amended: Links added.
--- NOTE | 2020-09-02 12:25 | NUR ---
NURSING PROGRESS NOTE Legal hold: LPS Report received from MARTINA Barron with use of SBAR Why are they here: Pt decompensated at board and care; increasingly agitated with bizarre, paranoid and delusional statements. Access center assessed and brought to ED for evaluation and stabilization. Pt is LPS. Assessment What happened this shift: Up early on unit having coffee and walking around. Retreated to room after breakfast and on/off napped. No other behaviors or changes today. In good spirits and cooperative. Awaiting discharge to [place] 09/08. S/I, H/I: denies A/VH: denies Sleep: Napped ADL's: Independent Group attendance: No Were Meds taken: Yes Any med S/E: None noted or reported Mental Status Exam Appearance: Neat and clean Eye contact: Good Behavior: Pleasant Speech: Clear Mood: Euthymic Affect: Blunted Thought process: circumstantial Thought Content: what's for lunch? Cognition: Alert Insight: Fair Judgment: Fair Interventions PRN's used: None Therapeutic interventions: provided 1:1 assessment, therapeutic communication and active listening, medication administration/education/monitoring, encouragement to attend groups, behavior monitoring and intervention as needed; verbal de-escalation, limit setting, Q 15 minute safety checks. Restraints/seclusion/emergency medication: N/A Justification of Continued Inpatient Treatment: Patient is LPS conserved and requires a safe and therapeutic environment until discharge on 09/08.
[2020-09-02 19:00] VITALS: BP 111/59
[2020-09-02] MEDS: quetiapine 100mg tablet PO SCH (19:51)
--- NOTE | 2020-09-03 00:08 | NUR ---
NURSING PROGRESS NOTE Legal hold: LPS Report received from MARTINA Skinner with use of SBAR. Why are they here: Pt decompensated at board and care; increasingly agitated with bizarre, paranoid and delusional statements. Access center assessed and brought to ED for evaluation and stabilization. Pt is LPS. Assessment What happened this shift: Patient is ambulatory and well dressed. He socializes with others and watches television. Patient is well dressed in a suit. Patient denies any depression, S/I, H/I, or any hallucinations. BM today, normal. Patient is compliant with medications. Tramadol for chronic shoulder pain. Patient in no distress. S/I, H/I: Denies A/VH: Denies. Sleep: Sleeping well, will tally in am. ADL's: Independent. Group attendance: No groups on nights. Were Meds taken: Yes, medication compliant. Any med S/E: None noted or reported. Mental Status Exam Appearance: Neat and clean, wearing a suit. Eye contact: Good. Behavior: Pleasant, cooperative. Speech: Clear, regular rhythm and tone. Mood: Euthymic. Affect: Blunted. Thought process: Circumstantial. Thought Content: States he is enjoying music. Cognition: Alert. Insight: Fair. Judgment: Fair. Interventions PRN's used: Tramadol, Artificial Tears. Therapeutic interventions: provided 1:1 assessment, therapeutic communication and active listening, medication administration/education/monitoring, encouragement to attend groups, behavior monitoring and intervention as needed; verbal de-escalation, limit setting, Q 15 minute safety checks. Restraints/seclusion/emergency medication: N/A Justification of Continued Inpatient Treatment: Patient is LPS conserved and requires a safe and therapeutic environment until discharge on 09/08.
[2020-09-03] MEDS: haloperidol 5mg tablet PO SCH ×3 (07:35→20:28)
[2020-09-03] MEDS: trihexyphenidyl HCL 5 MG tablet PO SCH ×3 (07:35→20:28)
[2020-09-03] MEDS: naproxen 500mg tablet PO SCH ×2 (07:35→17:10)
[2020-09-03] MEDS: FERROUS SULFATE 142 MG TABLET.ER (45mg elemental) PO SCH (07:35)
[2020-09-03] MEDS: pantoprazole 40mg Tablet.DR PO SCH (07:35)
[2020-09-03] MEDS: LORazepam 0.5 MG tablet PO SCH ×2 (07:36→17:10)
[2020-09-03] MEDS: divalproex sod 250mg ER (24-hour) tablet PO SCH ×2 (07:36→20:28)
[2020-09-03 07:38] VITALS: BP 112/64
--- NOTE | 2020-09-03 11:28 | NUR ---
NURSING PROGRESS NOTE Legal hold: LPS Report received from MARTINA Barron with use of SBAR Why are they here: Pt decompensated at board and care; increasingly agitated with bizarre, paranoid and delusional statements. Access center assessed and brought to ED for evaluation and stabilization. Pt is LPS. Assessment What happened this shift: Up early on unit having coffee and walking around. Up on unit more so today and interacting with others, talking and watching TV. In good spirits and cooperative. C/O ongoing shoulder and elbow pain, discussed medications and patient decided he would let us know if and when he needed any pain medication. Awaiting discharge to [facility] 09/08. S/I, H/I: denies A/VH: denies Sleep: Napped ADL's: Independent Group attendance: yes Were Meds taken: Yes Any med S/E: None noted or reported Mental Status Exam Appearance: Neat and clean Eye contact: Good Behavior: Pleasant Speech: Clear Mood: Euthymic Affect: smiling, talkative Thought process: circumstantial Thought Content: usual getting his needs met Cognition: Alert Insight: Fair Judgment: Fair Interventions PRN's used: None Therapeutic interventions: provided 1:1 assessment, therapeutic communication and active listening, medication administration/education/monitoring, encouragement to attend groups, behavior monitoring and intervention as needed; verbal de-escalation, limit setting, Q 15 minute safety checks. Restraints/seclusion/emergency medication: N/A Justification of Continued Inpatient Treatment: Patient is LPS conserved and requires a safe and therapeutic environment until discharge on 09/08.
[2020-09-03] MEDS: traMADol 50MG tablet PO PRN (15:25)
[2020-09-03 20:00] VITALS: BP 123/71
[2020-09-03] MEDS: quetiapine 100mg tablet PO SCH (20:28)
[2020-09-04] MEDS: quetiapine 100mg tablet PO PRN (03:19)
--- NOTE | 2020-09-04 03:28 | NUR ---
Nursing Progress Note: Legal hold: LPS Report received from MARTINA Skinner with use of SBAR. Why are they here: Pt decompensated at board and care; increasingly agitated with bizarre, paranoid and delusional statements. Access center assessed and brought to ED for evaluation and stabilization. Pt is LPS. Assessment What happened this shift: The patient was seen in the group room for 1:1 assessment. He's well dressed per his usual. He states he's doing fine, but still has significant arm/shoulder pain. Declines medication for pain. Then he says that he's worried about his wallet, "there's 1 dollar in it, and I don't want to lose it." Explained to him that it is in the safe, "Oh yea, I forgot about that." He spent the evening moving from room to room, not staying anywhere very long. he ate a snack, took his HS meds, then went to bed S/I, H/I: Denies A/VH: Denies. Sleep: See sleep assessment. ADL's: Independent. Group attendance: No groups on nights. Were Meds taken: Yes. Any med S/E: None reported or observed. Mental Status Exam Appearance: Neat and clean, wearing a suit. Eye contact: Good. Behavior: Pleasant, cooperative, delusional, paranoid. Speech: Clear. Mood: Euthymic. Affect: Blunted. Thought process: Circumstantial. Thought Content: Discharge. Cognition: Alert. Insight: Fair. Judgment: Fair. Interventions PRN's used: Therapeutic interventions: provided 1:1 assessment, therapeutic communication and active listening, medication administration/education/monitoring, encouragement to attend groups, behavior monitoring and intervention as needed; verbal de-escalation, limit setting, Q 15 minute safety checks. Restraints/seclusion/emergency medication: N/A Justification of Continued Inpatient Treatment: Patient is LPS conserved and requires a safe and therapeutic environment until discharge on 09/08.
[2020-09-04 07:06] VITALS: BP 105/69
[2020-09-04] MEDS: divalproex sod 250mg ER (24-hour) tablet PO SCH ×2 (07:19→21:03)
[2020-09-04] MEDS: pantoprazole 40mg Tablet.DR PO SCH (07:19)
[2020-09-04] MEDS: FERROUS SULFATE 142 MG TABLET.ER (45mg elemental) PO SCH (07:19)
[2020-09-04] MEDS: haloperidol 5mg tablet PO SCH ×3 (07:19→21:03)
[2020-09-04] MEDS: LORazepam 0.5 MG tablet PO SCH ×2 (07:19→16:36)
[2020-09-04] MEDS: trihexyphenidyl HCL 5 MG tablet PO SCH ×3 (07:26→21:03)
[2020-09-04] MEDS: naproxen 500mg tablet PO SCH ×2 (08:26→16:36)
[2020-09-04] MEDS: LORazepam 1 MG tablet PO PRN (12:21)
--- NOTE | 2020-09-04 15:30 | NUR ---
Nursing Progress Note: Legal hold: LPS Report received from Veronica Da Silva RN with use of SBAR. Why are they here: Pt decompensated at board and care; increasingly agitated with bizarre, paranoid and delusional statements. Access center assessed and brought to ED for evaluation and stabilization. Pt is LPS. Assessment What happened this shift: Patient was pleasant in the monring prior to breakfast. The patient was seen in the group room for 1:1 assessment after breakfast. Patient is suspicious of roomate calling him "thief! he was on my side of the apartment past the curtain..He is stealing my clothes..He has a piss poor thief attitude." Roomrashida was pacing in room with headphones on, not interacting with Hardik. When asked about the situation patient reports "get the hell out of here..What are you gonna do about him? I dont even know you!" Asked for PRN Ativan, did not show any insight to mental processes. Patient remains upset over roomate, intentionally walking up to him asking "Do you want any clothes? Might as well ask since you are stealing them!" Roomate did not respond. S/I, H/I: Denies A/VH: Denies. Sleep: See sleep assessment. ADL's: Independent. Group attendance: No groups on nights. Were Meds taken: Yes. Any med S/E: None reported or observed. Mental Status Exam Appearance: Neat and clean, wearing a suit. Eye contact: Good. Behavior: Cooperative, delusional, paranoid. Speech: Clear. Mood: Euthymic. Affect: Blunted. Thought process: Circumstantial. Thought Content: Discharge. Cognition: Alert. Insight: Poor. Judgment: Fair. Interventions PRN's used: Therapeutic interventions: provided 1:1 assessment, therapeutic communication and active listening, medication administration/education/monitoring, encouragement to attend groups, behavior monitoring and intervention as needed; verbal de-escalation, limit setting, Q 15 minute safety checks. Restraints/seclusion/emergency medication: N/A Justification of Continued Inpatient Treatment: Patient is LPS conserved and requires a safe and therapeutic environment until discharge on 09/08.
[2020-09-04 19:00] VITALS: BP 114/66
[2020-09-04] MEDS: quetiapine 100mg tablet PO SCH (21:03)
--- NOTE | 2020-09-04 23:58 | NUR ---
Nursing Progress Note: Legal hold: LPS Report received from MARTINA Skinner with use of SBAR. Why are they here: Pt decompensated at board and care; increasingly agitated with bizarre, paranoid and delusional statements. Access center assessed and brought to ED for evaluation and stabilization. Pt is LPS. Assessment What happened this shift: Pt up and visible on the unit, pacing around listening to the headphones. Pt did make some bizarre, seemingly delusional statements, but denies hallucinations and denies depression and denies suicidal and homicidal ideation. Pt was threatening another male pt at times tonight and needed redirection which he hesitantly responded to. Pt responded better to distraction. S/I, H/I: Denies A/VH: Denies. Sleep: See sleep assessment. ADL's: Independent. Group attendance: No groups on nights. Were Meds taken: Yes. Any med S/E: None reported or observed. Mental Status Exam Appearance: Neat and clean, wearing a suit. Eye contact: Good. Behavior: Pleasant, cooperative, delusional, paranoid. Speech: Clear. Mood: Euthymic. Affect: Blunted. Thought process: Circumstantial. Thought Content: Discharge. Cognition: Alert. Insight: Fair. Judgment: Fair. Interventions PRN's used: none Therapeutic interventions: provided 1:1 assessment, therapeutic communication and active listening, medication administration/education/monitoring, encouragement to attend groups, behavior monitoring and intervention as needed; verbal de-escalation, limit setting, Q 15 minute safety checks. Restraints/seclusion/emergency medication: N/A Justification of Continued Inpatient Treatment: Patient is LPS conserved and requires a safe and therapeutic environment until discharge on 09/08.
[2020-09-05] MEDS: traMADol 50MG tablet PO PRN (05:39)
[2020-09-05 07:39] VITALS: BP 109/71
[2020-09-05] MEDS: divalproex sod 250mg ER (24-hour) tablet PO SCH ×2 (08:18→20:38)
[2020-09-05] MEDS: LORazepam 0.5 MG tablet PO SCH ×2 (08:18→17:16)
[2020-09-05] MEDS: trihexyphenidyl HCL 5 MG tablet PO SCH ×3 (08:18→20:37)
[2020-09-05] MEDS: naproxen 500mg tablet PO SCH ×2 (08:18→17:16)
[2020-09-05] MEDS: FERROUS SULFATE 142 MG TABLET.ER (45mg elemental) PO SCH (08:18)
[2020-09-05] MEDS: pantoprazole 40mg Tablet.DR PO SCH (08:18)
[2020-09-05] MEDS: haloperidol 5mg tablet PO SCH ×3 (08:18→20:38)
--- NOTE | 2020-09-05 10:00 | NUR ---
Group Therapy: Process Group This Clinicians goals for this process group were as follows: (1) Ask scaling questions about Patients current anxiety, depression, and irritability symptoms as a check-in. (2) Share psychoeducation about the importance of being able to identify regular activities, support people, and thoughts (Anchors) that contribute to mental health well-being and stability. (3) Share psychoeducation about how the gradual removal of said activities, people and behaviors may lead to the erosion of mental well-being and stability. (4) Encourage patients to identify support anchors that they need to maintain in their lives that will promote their mental and emotional well-being. (5) Engage Patients in discussion of the topics shared within the group milieu. Patient presented as properly oriented to person, place, and situation during the process group. Patient was dressed in a hi5 Baseball hat, a dark smallwood suit jacket of a dark shirt, and dark smallwood slacks. Psychomotor activity was unremarkable. Patient did leave the group milieu on several occasions--sometimes being gone for several minutes--before returning. Patient ended up sitting in the back of the process group. Patient's thought content was disorganized and concrete. He often made comments that were off topic. For example this Clinician used the metaphor of a fisherman in a boat with many anchors grounding it to the bottom of a berry as a metaphor for having numerous mental health interventions/coping skills to help us stay, "Grounded," in optimal mental health, to which Patient stated, "It's like [place] Adventure in your mind." Patient's thought process varied widely between clear, coherent, and linear to being marked by tangential thinking and flight of ideas. This Clinician did not observe Patient responding to any internal stimuli during session. The rate, and latency of Patients speech was within normal limits. His tone of voice was loud. Patient maintained intermittent eye contact with this Clinician. Patient presented in calm euthymic mood, with restricted affect during the process group. Patient presented as cooperative, verbally engaged at times and nonobtrusive within the group milieu. This Clinician verbally redirected Patient on occasion. One one such occasion, this Clinician asked Patient what made him, "Happy and grounded in his mental health." Patient stated, "Nothing makes me happy." This Clinician recalled that Patient likes coins and asked him if his coins made him happy. Patient then stated, "Yes," to the question of whether or not coins made him happy. Angelo Marks MA, POWER PLANT INSTALLER Addendum: 09/05/20 at 1203 by Angelo Marks SS Amended: Links added.
--- NOTE | 2020-09-05 11:27 | NUR ---
MEDS IN PHARMACY House Admin picked up Hardik's D/C meds and they are being stored in the pharmacy. He will need them upon discharge on 09/08/20. LEXIE Squires
--- NOTE | 2020-09-05 16:38 | NUR ---
Nursing Progress Note: Legal hold: LPS Report received from Veronica Jones RN with use of SBAR. Why are they here: Pt decompensated at board and care; increasingly agitated with bizarre, paranoid and delusional statements. Access center assessed and brought to ED for evaluation and stabilization. Pt is LPS. Assessment What happened this shift: Pt up and visible on the unit, pacing around listening to the headphones. Pt did make some bizarre, seemingly delusional statements, but denies hallucinations and denies depression and denies suicidal and homicidal ideation. Pt was threatening another male pt at times tonight and needed redirection which he hesitantly responded to. Pt responded better to distraction. S/I, H/I: Denies A/VH: Denies. Sleep: See sleep assessment. ADL's: Independent. Group attendance: No groups on nights. Were Meds taken: Yes. Any med S/E: None reported or observed. Mental Status Exam Appearance: Neat and clean, wearing a suit. Eye contact: Good. Behavior: Pleasant, cooperative, delusional, paranoid. Speech: Clear. Mood: Euthymic. Affect: Blunted. Thought process: Circumstantial. Thought Content: Discharge. Cognition: Alert. Insight: Fair. Judgment: Fair. Interventions PRN's used: none Therapeutic interventions: provided 1:1 assessment, therapeutic communication and active listening, medication administration/education/monitoring, encouragement to attend groups, behavior monitoring and intervention as needed; verbal de-escalation, limit setting, Q 15 minute safety checks. Restraints/seclusion/emergency medication: N/A Justification of Continued Inpatient Treatment: Patient is LPS conserved and requires a safe and therapeutic environment until discharge on 09/08.
[2020-09-05 20:00] VITALS: BP 121/81
[2020-09-05] MEDS: quetiapine 100mg tablet PO PRN (20:39)
[2020-09-05] MEDS: quetiapine 100mg tablet PO SCH (20:39)
--- NOTE | 2020-09-05 23:06 | NUR ---
Nursing Progress Note: Legal hold: LPS Report received from MARTINA Skinner with use of SBAR. Why are they here: Pt decompensated at board and care; increasingly agitated with bizarre, paranoid and delusional statements. Access center assessed and brought to ED for evaluation and stabilization. Pt is LPS. Assessment What happened this shift: Pt up and visible on the unit, pacing the phillips in and out o the Rec room watching tv. Pt denies hallucinations and denies depression and denies suicidal and homicidal ideation. Pt is med compliant . S/I, H/I: Denies A/VH: Denies. Sleep: See sleep assessment. ADL's: Independent. Group attendance: No groups on nights. Were Meds taken: Yes. Any med S/E: None reported or observed. Mental Status Exam Appearance: Neat and clean, wearing a suit. Eye contact: Good. Behavior: Pleasant, cooperative, delusional, paranoid. Speech: Clear. Mood: Euthymic. Affect: Blunted. Thought process: Circumstantial. Thought Content: Discharge. Cognition: Alert. Insight: Fair. Judgment: Fair. Interventions PRN's used: Trazodone Therapeutic interventions: provided 1:1 assessment, therapeutic communication and active listening, medication administration/education/monitoring, encouragement to attend groups, behavior monitoring and intervention as needed; verbal de-escalation, limit setting, Q 15 minute safety checks. Restraints/seclusion/emergency medication: N/A Justification of Continued Inpatient Treatment: Patient is LPS conserved and requires a safe and therapeutic environment until discharge on 09/08.
[2020-09-06 08:00] VITALS: BP 132/74
--- NOTE | 2020-09-06 08:23 | NUR ---
Purchased cupcakes for Hardik's birthday. Utilized [employer] for the $12.99 cost. LEXIE Squires
[2020-09-06] MEDS: FERROUS SULFATE 142 MG TABLET.ER (45mg elemental) PO SCH (08:28)
[2020-09-06] MEDS: trihexyphenidyl HCL 5 MG tablet PO SCH ×3 (08:28→20:31)
[2020-09-06] MEDS: haloperidol 5mg tablet PO SCH ×3 (08:28→20:30)
[2020-09-06] MEDS: LORazepam 0.5 MG tablet PO SCH ×2 (08:28→17:45)
[2020-09-06] MEDS: pantoprazole 40mg Tablet.DR PO SCH (08:28)
[2020-09-06] MEDS: naproxen 500mg tablet PO SCH ×2 (08:28→17:45)
[2020-09-06] MEDS: acetaminophen 325mg tablet PO PRN (09:48)
--- NOTE | 2020-09-06 10:00 | NUR ---
Group Therapy: Process Group This Clinicians goal for this process group were as follows: (1) Share psychoeducation about core beliefs and how these beliefs shapes how one views reality. (2) Compare and contrast how people with different core beliefs might interpret an identical situation differently. (3) Discuss how changing negative core beliefs to more balanced, helpful, and rational alternatives can lead to improved behaviors and mood. (4) Process Clients thoughts and reflections on this topic within the group milieu. Patient identified experiencing the following levels of anxiety, depression, and anger/irritability while present in the group milieu (0-low; 10-High). Anxiety: 8/10 Depression: 0/10 Anger/irritability: 10/10 Patient presented as properly oriented x4 during the process group. Patient was dressed in a light smallwood tank top, and dark lama dress slacks that were appropriate within the milieu. Psychomotor activity was unremarkable. Patient's thought content was clear, and concrete. Patient's thought process varied between being clear, coherent, and linear, and being marked by tangential thinking, minor loose associations and flight of ideas. This Clinician did not observe Patient responding to any internal stimuli during session. The rate, and latency of Patients speech was within normal limits. His tone of voice was loud. Patient maintained intermittent eye contact with this Clinician. Patient presented in calm euthymic mood, with restricted affect during the process group. Patient presented as open and cooperative, and was verbally engaged and nonobtrusive within the group milieu. During answers to his initial scaling questions about the acuity of his anxiety, depression, and anger/irritability symptoms, Patient reported experiencing heightened levels of anxiety, and anger/irritability. This Clinician asked Patient to describe how he felt in his body along with any thoughts that he was experiencing. Patient stated that he felt like he was in "Upheaval," and that he was, "Angry." Patient occasionally offered comments during the discussion on core beliefs. Some of his comments were off topic; however, Patient was calm and nonobtrusive within the group milieu and interacted well with his peers. Angelo Marks MA, ELECTRICIAN HELPER Addendum: 09/06/20 at 1118 by Angelo TILLMAN Amended: Links added.
[2020-09-06] MEDS: divalproex sod 250mg ER (24-hour) tablet PO SCH ×2 (10:19→20:32)
--- NOTE | 2020-09-06 12:03 | NUR ---
Reassessment: Pt continues with average 75-100% PO intake on regular diet meeting estimated nutrient needs. [facility] 09/05. No nutrition intervention warranted at this time. Will continue to follow. Recommend: 1. continue regular diet 2. routine bowel care 3. wt per rx Addendum: 09/06/20 at [address] Amended: Links added.
[2020-09-06] MEDS ORDERED: DIVA500T9 PO (12:56)
--- NOTE | 2020-09-06 17:18 | NUR ---
Nursing Progress Note: Legal hold: LPS Report received from MARTINA Fish with use of SBAR. Why are they here: Pt decompensated at board and care; increasingly agitated with bizarre, paranoid and delusional statements. Access center assessed and brought to ED for evaluation and stabilization. Pt is LPS. Assessment What happened this shift: shift. Patient was cooperative and pleasant in the morning. Patient c/o right shoulder pain and given Tylenol x 1. Pt denies depression and suicidal/homicidal thoughts today and is looking forward to discharge. Pt did not have any conflicts with peers today and remained in good spirits without evidence of delusional thoughts. Pt had bright affect all day. S/I, H/I: Denies A/VH: Denies. Sleep: See sleep assessment. ADL's: Independent. Group attendance: no Were Meds taken: Yes. Any med S/E: None reported or observed. Mental Status Exam Appearance: Neat and clean, wearing a suit. Eye contact: Good. Behavior: Pleasant, cooperative, delusional, paranoid. Speech: Clear. Mood: Euthymic. Affect: Blunted. Thought process: Circumstantial. Thought Content: Discharge. Cognition: Alert. Insight: Fair. Judgment: Fair. Interventions PRN's used: tylenol Therapeutic interventions: provided 1:1 assessment, therapeutic communication and active listening, medication administration/education/monitoring, encouragement to attend groups, behavior monitoring and intervention as needed; verbal de-escalation, limit setting, Q 15 minute safety checks. Restraints/seclusion/emergency medication: N/A Justification of Continued Inpatient Treatment: Patient is LPS conserved and requires a safe and therapeutic environment until discharge on 09/08.
[2020-09-06] MEDS: traMADol 50MG tablet PO PRN (18:55)
[2020-09-06 20:30] VITALS: BP 130/72
[2020-09-06] MEDS: quetiapine 100mg tablet PO SCH (20:30)
[2020-09-06] MEDS: LORazepam 1 MG tablet PO PRN (22:14)
[2020-09-06] MEDS: quetiapine 100mg tablet PO PRN (23:16)
--- NOTE | 2020-09-06 23:40 | NUR ---
Nursing Progress Note: Legal hold: LPS Report received from , RN with use of SBAR. Why are they here: Pt decompensated at board and care; increasingly agitated with bizarre, paranoid and delusional statements. Access center assessed and brought to ED for evaluation and stabilization. Pt is LPS. Assessment What happened this shift: Patient was cooperative and pleasant this shift Patient c/o right shoulder pain and given Tramadol and Tylenol x 1. Pt denies depression and suicidal/homicidal thoughts today and is looking forward to discharge. Pt did not have any conflicts with peers today and remained in good spirits without evidence of delusional thoughts. Pt had bright affect all day. S/I, H/I: Denies A/VH: Denies. Sleep: See sleep assessment. ADL's: Independent. Group attendance: no Were Meds taken: Yes. Any med S/E: None reported or observed. Mental Status Exam Appearance: Neat and clean, wearing a suit. Eye contact: Good. Behavior: Pleasant, cooperative, delusional, paranoid. Speech: Clear. Mood: Euthymic. Affect: Blunted. Thought process: Circumstantial. Thought Content: Discharge. Cognition: Alert. Insight: Fair. Judgment: Fair. Interventions PRN's used: tylenol Therapeutic interventions: provided 1:1 assessment, therapeutic communication and active listening, medication administration/education/monitoring, encouragement to attend groups, behavior monitoring and intervention as needed; verbal de-escalation, limit setting, Q 15 minute safety checks. Restraints/seclusion/emergency medication: N/A Justification of Continued Inpatient Treatment: Patient is LPS conserved and requires a safe and therapeutic environment until discharge on 09/08.
[2020-09-07] MEDS: trihexyphenidyl HCL 5 MG tablet PO SCH ×3 (07:37→20:53)
[2020-09-07] MEDS: LORazepam 0.5 MG tablet PO SCH ×2 (07:37→17:15)
[2020-09-07] MEDS: haloperidol 5mg tablet PO SCH ×3 (07:37→20:53)
[2020-09-07] MEDS: divalproex sod 250mg ER (24-hour) tablet PO SCH ×2 (07:37→20:54)
[2020-09-07] MEDS: pantoprazole 40mg Tablet.DR PO SCH (07:37)
[2020-09-07] MEDS: FERROUS SULFATE 142 MG TABLET.ER (45mg elemental) PO SCH (07:38)
[2020-09-07] MEDS: naproxen 500mg tablet PO SCH ×2 (07:38→17:15)
[2020-09-07 08:00] VITALS: BP 124/72
[2020-09-07] MEDS: traMADol 50MG tablet PO PRN (12:46)
--- NOTE | 2020-09-07 13:07 | NUR ---
Nursing Progress Note Legal hold: LPS Report received from MARTINA Fish with use of SBAR. Why are they here: Pt decompensated at board and care; increasingly agitated with bizarre, paranoid and delusional statements. Access center assessed and brought to ED for evaluation and stabilization. Pt is LPS. Assessment What happened this shift: Received Pt in bed sleeping w/o distress at change of shift. Pt cooperative with vitals and assessments. Patient was cooperative and pleasant in the morning. Patient c/o right shoulder pain in afternoon and given Tramadol after AM naprosyn not effective. Pt denies depression and SI/HI and is looking forward to discharge tomorrow. Pt is mosly isolative, but did have some pleasant interactions with staff and other Pts throughout day. Pt in euthymic mood with pleasant affect today. S/I, H/I: Denies A/VH: Denies. Sleep: None ADL's: Independent. Group attendance: No Were Meds taken: Yes Any med S/E: None reported or observed Mental Status Exam Appearance: Neat and clean, wearing a suit Eye contact: Good Behavior: Pleasant, cooperative, delusional, paranoid Speech: Clear Mood: Euthymic Affect: Blunted Thought process: Circumstantial Thought Content: Discharge Cognition: Alert Insight: Fair Judgment: Fair Interventions PRN's used: Tramadol Therapeutic interventions: provided 1:1 assessment, therapeutic communication and active listening, medication administration/education/monitoring, encouragement to attend groups, behavior monitoring and intervention as needed; verbal de-escalation, limit setting, Q 15 minute safety checks. Restraints/seclusion/emergency medication: N/A Justification of Continued Inpatient Treatment: Patient is LPS conserved and requires a safe and therapeutic environment until discharge on 09/08.
[2020-09-07] MEDS: acetaminophen 325mg tablet PO PRN ×2 (15:35→21:06)
--- NOTE | 2020-09-07 15:39 | NUR ---
DISCHARGE 09/08/20 9 am [facility] and will be transported to [place]. He will be transported with another patient on the unit. Please have his items inventoried and ready for lease picker at 9 AM. His medications were stored in the pharmacy and one has been sent to [facility]. LEXIE Squires
[2020-09-07] MEDS ORDERED: [UNRECOGNIZED DRUG - CODE] PO (17:33)
[2020-09-07 20:00] VITALS: BP 115/76
[2020-09-07] MEDS: quetiapine 100mg tablet PO SCH (20:53)
--- NOTE | 2020-09-08 03:16 | NUR ---
nursing progress note: in bed at shift change; pleasant & cooperative during initial assessment; denies suicidal or homicidal thoughts; ambulating in hallway last night & returned to bed after HS meds were given tylenol given at 2106 for right shoulder pain which is helpful; (states tramadol usually doesn't help); pt sleeping with no distress noted
[2020-09-08] MEDS: acetaminophen 325mg tablet PO PRN (05:59)
[2020-09-08 07:36] VITALS: BP 106/67
[2020-09-08] MEDS: trihexyphenidyl HCL 5 MG tablet PO SCH (08:09)
[2020-09-08] MEDS: divalproex sod 250mg ER (24-hour) tablet PO SCH (08:09)
[2020-09-08] MEDS: haloperidol 5mg tablet PO SCH (08:09)
[2020-09-08] MEDS: pantoprazole 40mg Tablet.DR PO SCH (08:09)
[2020-09-08] MEDS: FERROUS SULFATE 142 MG TABLET.ER (45mg elemental) PO SCH (08:09)
[2020-09-08] MEDS: naproxen 500mg tablet PO SCH (08:09)
[2020-09-08] MEDS: LORazepam 0.5 MG tablet PO SCH (08:09)
--- NOTE | 2020-09-08 09:26 | NUR ---
Discharge Note: Pt picked up by [facility] petroleum transport driver at 0910 to be taken to [place] in [place]. Discharge Instructions reviewed with pt and sent to public guardian. Pt sent with copies. Smoking cessation education provided to pt. All belongings sent with the pt. and he agreed he had all his stuff. Medications sent with pt.
== END 2020-09-08 09:10 | disposition home or self-care (01) | DRG 885 ==
LOC: ADULT MH 20:18
PROVIDERS: ADMIT Psychiatry & Neurology Psychiatry; ATTEND Psychiatry & Neurology Psychiatry
DX: F25.0 Schizoaffective disorder, bipolar type (principal); D64.9 Anemia, unspecified; D86.9 Sarcoidosis, unspecified; G89.29 Other chronic pain; K21.9 Gastro-esophageal reflux disease without esophagitis; R32 Unspecified urinary incontinence; Z82.0 Family history of epilepsy and other diseases of the nervous system; Z83.3 Family history of diabetes mellitus; Z95.5 Presence of coronary angioplasty implant and graft; Z91.018 Allergy to other foods
CPT/HCPCS: 36415; 73080; 80053; 80164; 82272; 82728; 83540; 83550; 84443; 85025; 85045; 87081; 87635; 97110; 97161; J1630; J2060; J3490

== ENCOUNTER 2020-12-22 14:43 | Inpatient (IN) | payer MEDICARE, MEDICAID ==
[~2020-12-22] VITALS: Ht 190.5 cm; Wt 95.0 kg
[~2020-12-22 14:43] MED LIST changes: -DIVA500T9 PO; -HALO10TA13 PO; +Lorazepam PO; -MIDO2.5T14 PO; -MIDO5TAB4 PO; +QUET100T33 PO; -TRAZ-256 PO; -TRIH2TAB3 PO; +TRIH5TAB3 PO; +[UNRECOGNIZED DRUG - CODE] PO
[2020-12-22 20:00] VITALS: BP 122/88
[2020-12-22] MEDS ORDERED: LITH300T3 PO (20:24)
[2020-12-22] MEDS ORDERED: SULI200T97 PO (20:24)
[2020-12-22] MEDS ORDERED: ATOR10TA70 PO (20:24)
[2020-12-22] MEDS ORDERED: PANT-47 PO (20:55)
[2020-12-22] MEDS ORDERED: HALO5TAB PO (20:55)
[2020-12-22] MEDS ORDERED: TRIH2TAB3 PO (20:55)
[2020-12-22] MEDS ORDERED: LORA-269 PO (20:55)
[2020-12-22] MEDS ORDERED: QUET-1 PO (20:55)
[2020-12-22] MEDS ORDERED: mag hydrox/Alum hydrox/simeth 30ml oral suspension PO PRN (22:15)
[2020-12-22] MEDS ORDERED: loperamide 2mg capsule PO PRN (22:15)
[2020-12-22] MEDS ORDERED: magnesium hydroxide 30ml (MOM) UD suspension PO PRN (22:15)
[2020-12-22] MEDS ORDERED: traZODone 50mg tablet PO PRN (22:15)
[2020-12-22] MEDS ORDERED: quetiapine 100mg tablet PO ONE (22:25)
[2020-12-22] MEDS ORDERED: lithium carbonate 300mg SR tablet (LithoBID) PO ONE (22:25)
[2020-12-22] MEDS ORDERED: haloperidol 5mg tablet PO ONE (22:25)
[2020-12-22] MEDS ORDERED: LORazepam 0.5 MG tablet PO ONE (22:25)
--- NOTE | 2020-12-22 22:28 | NUR ---
NURSING ADMISSION NOTE Pt arrived on the unit at 194. 2 RN skin check completed,pt offered a shower which he took. Belongings inventoried, paperwork done. 5150 advisement completed. Pt is LPS conserved and has a hx of schizoaffective disorder and PICA. Pt public guardian is Thuy Bentley phone number # [phone]. Pt was at [place], and was becoming paranoid about his finances. It was found that 200$ of his P[employer] money was unaccounted for and this escalated the patient. Pt began having outbursts of anger and became increasingly paranoid and delusional towards staff and peers.
[2020-12-23] MEDS: trihexyphenidyl HCL 5 MG tablet PO SCH ×4 (07:46→21:01)
[2020-12-23] MEDS: pantoprazole 40mg Tablet.DR PO SCH (07:46)
[2020-12-23] MEDS: atorvastatin 10mg tablet PO SCH (07:46)
[2020-12-23] MEDS: lithium carbonate 300mg SR tablet (LithoBID) PO SCH ×2 (07:47→20:43)
[2020-12-23 07:59] LABS: CHOL/HDL RATIO 2.5 (0.00-4.99); CHOLESTEROL 98 MG/DL (0-200); HDL CHOLESTEROL 39 MG/DL (35-60); LDL CHOLESTEROL 51 MG/DL (50-100); TRIGLYCERIDES 80 MG/DL (20-135)
[2020-12-23] MEDS ORDERED: LORazepam 1 MG tablet PO SCH (08:00)
[2020-12-23] MEDS ORDERED: haloperidol 5mg tablet PO SCH ×2 (08:00→21:00)
[2020-12-23 08:11] LABS: HEMOGLOBIN A1C 5.6 % (4.5-6.2)
[2020-12-23 08:47] VITALS: BP 99/61
[2020-12-23] MEDS: NICOTINE POLACRILEX 2 MG LOZENGE BC PRN (10:25)
--- NOTE | 2020-12-23 15:04 | NUR ---
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 Pt public guardian is Thuy Bentley phone number # [phone]. Pt was at [place], and was becoming paranoid about his finances. It was found that 200$ of his PNI money was unaccounted for and this escalated the patient. Pt began having outbursts of anger and became increasingly paranoid and delusional towards staff and peers. Assessment What has happened this shift: Received Pt in bed sleeping w/o distress at beginning of shift. Pt woke and was cooperative with vitals and AM meds. Pt ate all meals in community room and interacted well with others. Pt became loud and animated a few times during this shift, but overall pleasant, even though he wants to leave. At 1415, pt became increasingly agitated regarding a sweatshirt he wanted to wearthis sweatshirt wasnot on the unit. He went to his room, but continued to yell and call this RN names. He declined PRNs and asked the RN to F*ck off. Attempted approach 10 minutes later to no avail, so this RN asked the Charge for assistance. Charge able to de-escalate reach an agreement with the patient. He is calm and agreeable after intervention. S/I, H/I: Denies A/VH: Denies Sleep: Not observed to nap ADL's: Independent Group attendance: Yes Were meds taken: Yes Any med S/E: None observed nor reported Mental Status Exam Appearance: Wearing a hat and personal clothing and sweatshirt Eye contact: Good Behavior: Pacing the unit, attending meals, bouts of agitation Speech: Clear, audible, hyperverbal, pressured. Mood: Labile Affect: Blunted Thought process: Tangential Thought Content: Upset about belongings Cognition: A/Ox4 Insight: Poor to fair Judgment: Poor to fair Interventions PRN's used: None Therapeutic interventions: 1:1 assessment, establishment of rapport, therapeutic conversation, active listening, ensured contract for safety, behavior monitoring and intervention as needed; reality orientation, verbal de-escalation, limit setting, distraction redirection, elopement prevention, provided positive reinforcement, Q 15 minute safety checks. Restraints/seclusion/emergency medication: N/A Justification of Continued Inpatient Treatment: Pt needs crisis interruption and placement in a safe and therapeutic environment until stable.
[2020-12-23] MEDS: haloperidol 5mg tablet PO SCH (17:33)
[2020-12-23 19:42] VITALS: BP 130/98
[2020-12-23] MEDS: QUEtiapine 25mg tablet PO PRN (20:45)
[2020-12-23] MEDS: quetiapine 100mg tablet PO SCH (20:56)
[2020-12-23] MEDS ORDERED: LORazepam 0.5 MG tablet PO ONE (21:05)
--- NOTE | 2020-12-24 03:23 | NUR ---
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 Pt public guardian is Thuy Bentley phone number # [phone]. Pt was at [place], and was becoming paranoid about his finances. It was found that 200$ of his PNI money was unaccounted for and this escalated the patient. Pt began having outbursts of anger and became increasingly paranoid and delusional towards staff and peers. Assessment What has happened this shift: Received pt in recreation room watching TV. During report is was noted that the pt was wearing a sweatshirt with strings on it and pt refused to have them cut. The pt came to the nurses station requesting to talk to his brother and that his number was in his folder in his locker. I requested help from Shay, the PCT, to locate it. We went to his locker and couldn't find a folder. The pt came to the "storage door" and began knocking on it yelling, "I'm going to marsha you, why are you doing this to me, I want to see my stuff!" Pt was very agitated and the CN and another floor nurse came to help assist. Pt went to his room yelling, "get away from me, I dont want to talk." The CN tried to talk and calm the pt down but pt stated, "get out of here B!" About 20 minutes later the CN went back to pts room to see if he'd take a Seroquel but pt declined. Pt stated he was upset that the day CN came into the REC room and interupted his TV watching. Later, Pt seen walking in the hallway and talking in a calm manner and stating to this RN "I'm sorry and thank you for being my nurse." Pt took all NOC meds with no issues and retired to bed. S/I, H/I: Denies A/VH: Denies Sleep: ADL's: Independent Group attendance: Were meds taken: Yes Any med S/E: None observed nor reported Mental Status Exam Appearance: Wearing a hat and personal clothing and black sweatshirt Eye contact: Good Behavior: Pacing the unit, attending meals, bouts of agitation Speech: Clear, audible, hyperverbal, pressured. Mood: Labile, angry, agitated Affect: Blunted Thought process: Tangential Thought Content: Upset about belongings Cognition: A/Ox4 Insight: Poor to fair Judgment: Poor to fair Interventions PRN's used: None Therapeutic interventions: 1:1 assessment, establishment of rapport, therapeutic conversation, active listening, ensured contract for safety, behavior monitoring and intervention as needed; reality orientation, verbal de-escalation, limit setting, distraction redirection, elopement prevention, provided positive reinforcement, Q 15 minute safety checks. Restraints/seclusion/emergency medication: N/A Justification of Continued Inpatient Treatment: Pt needs crisis interruption and placement in a safe and therapeutic environment until stable.
[2020-12-24] MEDS: lithium carbonate 300mg SR tablet (LithoBID) PO SCH ×2 (07:45→20:11)
[2020-12-24] MEDS: trihexyphenidyl HCL 5 MG tablet PO SCH ×3 (07:45→20:10)
[2020-12-24] MEDS: pantoprazole 40mg Tablet.DR PO SCH (07:46)
[2020-12-24] MEDS: LORazepam 0.5 MG tablet PO SCH ×2 (07:46→20:10)
[2020-12-24] MEDS: atorvastatin 10mg tablet PO SCH (07:46)
[2020-12-24] MEDS: haloperidol 5mg tablet PO SCH ×3 (07:47→20:17)
[2020-12-24 08:27] VITALS: BP 99/63
--- NOTE | 2020-12-24 14:54 | NUR ---
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 Pt public guardian is Thuy Bentley phone number # [phone]. Pt was at [place], and was becoming paranoid about his finances. It was found that 200$ of his PNI money was unaccounted for and this escalated the patient. Pt began having outbursts of anger and became increasingly paranoid and delusional towards staff and peers. Assessment What has happened this shift: Pt awake at the beginning of shift, pacing the halls. He remains cooperative with patient care and medication complaint, but is easily agitated. He told this RN "I don't want to be bothered" and "I don't care about anything right now!" and was observed to make an antagonistic comment to a peer, randomly ("Oh you think you're cool, huh?"). Pt started becoming agitated, stating a pt had just stepped on his foot (this RN was watching the interaction with the peer and this did not occur) but then it was time for him to meet with the MD; pt considerably calmed after interview. Pt able to be red-directed when agitated, and leaving the pt to himself often allows pt to become calmer. S/I, H/I: Denies A/VH: Denies Sleep: Not observed to nap ADL's: Independent Group attendance: Yes Were meds taken: Yes Any med S/E: None observed nor reported Mental Status Exam Appearance: Wearing a hat and personal clothing and sweatshirt Eye contact: Good Behavior: Pacing the unit, attending meals, bouts of agitation Speech: Loud, Unique sally Mood: Labile Affect: Blunted Thought process: Tangential Thought Content: Upset he is here Cognition: A/Ox4 Insight: Poor to fair Judgment: Poor to fair Interventions PRN's used: None Therapeutic interventions: 1:1 assessment, establishment of rapport, therapeutic conversation, active listening, ensured contract for safety, behavior monitoring and intervention as needed; reality orientation, verbal de-escalation, limit setting, distraction redirection, elopement prevention, provided positive reinforcement, Q 15 minute safety checks. Restraints/seclusion/emergency medication: N/A Justification of Continued Inpatient Treatment: Pt needs crisis interruption and placement in a safe and therapeutic environment until stable.
[2020-12-24 19:24] VITALS: BP 114/80
[2020-12-24] MEDS: quetiapine 100mg tablet PO SCH (20:10)
--- NOTE | 2020-12-25 02:50 | NUR ---
Nursing Progress Note: Legal hold: LPS Client on involuntary status for GD Report received from MARTINA Forrest,. 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 Pt public guardian is Thuy Bentley phone number # [phone]. Pt was at [place], and was becoming paranoid about his finances. It was found that 200$ of his PNI money was unaccounted for and this escalated the patient. Pt began having outbursts of anger and became increasingly paranoid and delusional towards staff and peers. Assessment What has happened this shift: Patient paces hallway following shift change, he listens to music on headphones. He then isolates in his room. Minor agitation, some internal stimuli. Very cooperative with this senior grant writer. Denies, S/I or H/I. S/I, H/I: Denies. A/VH: Denies. Sleep: Not observed to nap ADL's: Independent. Group attendance: Yes Were meds taken: Yes Any med S/E: None observed nor reported. Mental Status Exam Appearance: Clean, wearing personal clothing. Eye contact: Good. Behavior: Pacing halls, minor agitation, cooperative. Speech: Quiet. Mood: Cooperative. Affect: Flat. Thought process: Tangential. Thought Content: Focused on snacks and music. Cognition: A/Ox4 Insight: Poor to fair. Judgment: Poor to fair. Interventions PRN's used: Nicotine lozenge. Therapeutic interventions: 1:1 assessment, establishment of rapport, therapeutic conversation, active listening, ensured contract for safety, behavior monitoring and intervention as needed; reality orientation, verbal de-escalation, limit setting, distraction redirection, elopement prevention, provided positive reinforcement, Q 15 minute safety checks. Restraints/seclusion/emergency medication: N/A Justification of Continued Inpatient Treatment: Pt needs crisis interruption and placement in a safe and therapeutic environment until stable.
[2020-12-25] MEDS: atorvastatin 10mg tablet PO SCH (07:37)
[2020-12-25] MEDS: LORazepam 0.5 MG tablet PO SCH ×2 (07:38→20:09)
[2020-12-25] MEDS: pantoprazole 40mg Tablet.DR PO SCH (07:38)
[2020-12-25] MEDS: lithium carbonate 300mg SR tablet (LithoBID) PO SCH ×2 (07:38→20:09)
[2020-12-25] MEDS: haloperidol 5mg tablet PO SCH ×3 (07:38→20:09)
[2020-12-25] MEDS: trihexyphenidyl HCL 5 MG tablet PO SCH ×3 (07:38→20:09)
[2020-12-25 08:00] VITALS: BP 120/72
[2020-12-25] MEDS ORDERED: OLANZapine **IM** 10 mg inj. IM ONE (10:05)
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
[2020-12-25 19:49] VITALS: BP 99/57
[2020-12-25] MEDS: quetiapine 100mg tablet PO SCH (20:09)
[2020-12-25] MEDS: NICOTINE POLACRILEX 2 MG LOZENGE BC PRN (21:04)
--- NOTE | 2020-12-26 02:30 | NUR ---
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 Pt public guardian is Thuy Bentley phone number # [phone]. Pt was at [place], and was becoming paranoid about his finances. It was found that 200$ of his PNI money was unaccounted for and this escalated the patient. Pt began having outbursts of anger and became increasingly paranoid and delusional towards staff and peers. Assessment What has happened this shift: The patient was seen walking the phillips at shift change. This administrative underwriter greeted him, but he did not even acknowledge me. A little later he was in his room. This administrative underwriter again attempted discourse, but the patient continued to ignore. He his expression looks angry at something. All attempts at conversation failed, but he was compliant with his medication. He spent most of the evening isolated to his room, not responding to anyone. S/I, H/I: Denies. A/VH: Denies. Sleep: See sleep assessment ADL's: Independent. Group attendance: Yes Were meds taken: Yes Any med S/E: None reported or observed. Mental Status Exam Appearance: Clean, wearing personal clothing. Eye contact: Poor. Behavior: Pacing halls, minor agitation, uncooperative. Speech: Quiet. Mood: Angry. Affect: Flat. Thought process: Tangential. Thought Content: Focused on snacks and music. Cognition: A/Ox4 Insight: Poor to fair. Judgment: Poor to fair. Interventions PRN's used: Nicotine lozenge. Therapeutic interventions: 1:1 assessment, establishment of rapport, therapeutic conversation, active listening, ensured contract for safety, behavior monitoring and intervention as needed; reality orientation, verbal de-escalation, limit setting, distraction redirection, elopement prevention, provided positive reinforcement, Q 15 minute safety checks. Restraints/seclusion/emergency medication: N/A Justification of Continued Inpatient Treatment: Pt needs crisis interruption and placement in a safe and therapeutic environment until stable.
[2020-12-26] MEDS: lithium carbonate 300mg SR tablet (LithoBID) PO SCH ×2 (07:53→20:08)
[2020-12-26] MEDS: haloperidol 5mg tablet PO SCH ×3 (07:53→20:09)
[2020-12-26] MEDS: trihexyphenidyl HCL 5 MG tablet PO SCH ×3 (07:53→20:09)
[2020-12-26] MEDS: atorvastatin 10mg tablet PO SCH (07:54)
[2020-12-26] MEDS: LORazepam 0.5 MG tablet PO SCH ×2 (07:54→20:07)
[2020-12-26] MEDS: pantoprazole 40mg Tablet.DR PO SCH (07:54)
[2020-12-26 08:00] VITALS: BP 109/75
--- NOTE | 2020-12-26 11:14 | NUR ---
Patient eating well, good appetite, 75-100% PO intake regular diet. No nutrition problem. Recommend: 1. Continue regular diet 2. Bowel care as needed 3. Weekly weights Addendum: 12/26/20 at [address] Amended: Links added.
--- NOTE | 2020-12-26 16:20 | NUR ---
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 Pt public guardian is Thuy Bentley phone number # [phone]. Pt was at [place], and was becoming paranoid about his finances. It was found that 200$ of his PNI money was unaccounted for and this escalated the patient. Pt began having outbursts of anger and became increasingly paranoid and delusional towards staff and peers. Assessment What has happened this shift: Pt up and visible on the unit. Pt has been calm today. Either in his room or pacing at times between meals. Listening to headphones. Pt refused group. Pt denies hallucinations today and did not request any PRN medications today. S/I, H/I: Denies A/VH: Denies Sleep: Not observed to nap ADL's: Independent Group attendance: Yes Were meds taken: Yes Any med S/E: None observed nor reported Mental Status Exam Appearance: Wearing a hat and personal clothing and sweatshirt Eye contact: Good Behavior: Pacing the unit, attending meals, bouts of agitation Speech: Loud, Unique sally Mood: Labile Affect: Blunted Thought process: Tangential Thought Content: Upset he is here Cognition: A/Ox4 Insight: Poor to fair Judgment: Poor to fair Interventions PRN's used: None Therapeutic interventions: 1:1 assessment, establishment of rapport, therapeutic conversation, active listening, ensured contract for safety, behavior monitoring and intervention as needed; reality orientation, verbal de-escalation, limit setting, distraction redirection, elopement prevention, provided positive reinforcement, Q 15 minute safety checks. Restraints/seclusion/emergency medication: N/A Justification of Continued Inpatient Treatment: Pt needs crisis interruption and placement in a safe and therapeutic environment until stable.
[2020-12-26] MEDS: NICOTINE POLACRILEX 2 MG LOZENGE BC PRN (18:05)
--- NOTE | 2020-12-26 19:22 | NUR ---
Pt refused VS Addendum: 12/26/20 at 1923 by Katarina Valenzuela RN Amended: Links added.
[2020-12-26] MEDS: quetiapine 100mg tablet PO SCH (20:09)
--- NOTE | 2020-12-27 00:10 | NUR ---
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 Pt public guardian is Thuy Bentley phone number # [phone]. Pt was at [place], and was becoming paranoid about his finances. It was found that 200$ of his PNI money was unaccounted for and this escalated the patient. Pt began having outbursts of anger and became increasingly paranoid and delusional towards staff and peers. Assessment What has happened this shift: Pt up in halls at start of shift. Angry asked staff member if "do you like yard sales" when they said yes Extended middle finger at them. Refused VS and Assessment. Yelling asking what happened to his wallet and his checkbook. Pt calmed down a little later came to group room for snack. Sat by himself did not interact with others. Cooperative took meds. Went to bed and went to sleep S/I, H/I: Denies A/VH: Denies Sleep: asleep at this time ADL's: Independent Group attendance: NA Were meds taken: Yes Any med S/E: None observed nor reported Mental Status Exam Appearance: Wearing a hat and personal clothing and sweatshirt Eye contact: Intense angry stare Behavior: Pacing the unit, attending meals, bouts of agitation Speech: Loud, Unique sally Mood: Labile Affect: Blunted Thought process: Tangential Thought Content: Wallet checks. Cognition: A/Ox4 Insight: Poor Judgment: Poor Interventions PRN's used: None Therapeutic interventions: 1:1 assessment, establishment of rapport, therapeutic conversation, active listening, ensured contract for safety, behavior monitoring and intervention as needed; reality orientation, verbal de-escalation, limit setting, distraction redirection, elopement prevention, provided positive reinforcement, Q 15 minute safety checks. Restraints/seclusion/emergency medication: N/A Justification of Continued Inpatient Treatment: Pt needs crisis interruption and placement in a safe and therapeutic environment until stable.
[2020-12-27] MEDS: lithium carbonate 300mg SR tablet (LithoBID) PO SCH ×2 (07:45→20:37)
[2020-12-27] MEDS: pantoprazole 40mg Tablet.DR PO SCH (07:45)
[2020-12-27] MEDS: haloperidol 5mg tablet PO SCH ×3 (07:45→20:36)
[2020-12-27] MEDS: trihexyphenidyl HCL 5 MG tablet PO SCH ×3 (07:45→20:37)
[2020-12-27] MEDS: LORazepam 0.5 MG tablet PO SCH ×2 (07:45→20:37)
[2020-12-27] MEDS: atorvastatin 10mg tablet PO SCH (07:45)
[2020-12-27 08:00] VITALS: BP 124/80
[2020-12-27] MEDS: NICOTINE POLACRILEX 2 MG LOZENGE BC PRN ×3 (08:23→19:40)
--- NOTE | 2020-12-27 15:28 | NUR ---
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 Pt public guardian is Thuy Bentley phone number # [phone]. Pt was at [place], and was becoming paranoid about his finances. It was found that 200$ of his PNI money was unaccounted for and this escalated the patient. Pt began having outbursts of anger and became increasingly paranoid and delusional towards staff and peers. Assessment What has happened this shift: Pt up and visible on the unit. Pt was really worked up this morning, hyperverbal, loud, pressured speech, tangential and disorganized thought process. He stated, "did you know my parents were mercy killers" As the day went on, pt calmed and was no longer so worked up. S/I, H/I: Denies A/VH: Denies Sleep: Not observed to nap ADL's: Independent Group attendance: Yes Were meds taken: Yes Any med S/E: None observed nor reported Mental Status Exam Appearance: Wearing a hat and personal clothing and sweatshirt Eye contact: Good Behavior: Pacing the unit, attending meals, bouts of agitation Speech: Loud, Unique sally Mood: Labile Affect: Blunted Thought process: Tangential Thought Content: Upset he is here Cognition: A/Ox4 Insight: Poor to fair Judgment: Poor to fair Interventions PRN's used: None Therapeutic interventions: 1:1 assessment, establishment of rapport, therapeutic conversation, active listening, ensured contract for safety, behavior monitoring and intervention as needed; reality orientation, verbal de-escalation, limit setting, distraction redirection, elopement prevention, provided positive reinforcement, Q 15 minute safety checks. Restraints/seclusion/emergency medication: N/A Justification of Continued Inpatient Treatment: Pt needs crisis interruption and placement in a safe and therapeutic environment until stable.
[2020-12-27 20:00] VITALS: BP 126/80
[2020-12-27] MEDS: quetiapine 100mg tablet PO SCH (20:37)
--- NOTE | 2020-12-28 03:28 | NUR ---
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 Pt public guardian is Thuy Bentley phone number # [phone]. Pt was at [place], and was becoming paranoid about his finances. It was found that 200$ of his PNI money was unaccounted for and this escalated the patient. Pt began having outbursts of anger and became increasingly paranoid and delusional towards staff and peers. Assessment What has happened this shift: Received pt sitting in a chair in the rec room with head phones on. Pt seemed content and denied any mental health symptoms. Pt mentioned he went to group this morning but didn't participate because he wasnt sure what to do or say. Pt medication compliant and went back to his room after NOC meds given. Will continue to monitor. S/I, H/I: Denies A/VH: Denies Sleep: ADL's: Independent Group attendance: Yes Were meds taken: Yes Any med S/E: None observed nor reported Mental Status Exam Appearance: Wearing a hat and personal clothing and sweatshirt Eye contact: Good Behavior: Pacing the unit, attending meals, bouts of agitation Speech: Loud, Unique sally Mood: Labile Affect: Blunted Thought process: Tangential Thought Content: Upset he is here Cognition: A/Ox4 Insight: Poor to fair Judgment: Poor to fair Interventions PRN's used: None Therapeutic interventions: 1:1 assessment, establishment of rapport, therapeutic conversation, active listening, ensured contract for safety, behavior monitoring and intervention as needed; reality orientation, verbal de-escalation, limit setting, distraction redirection, elopement prevention, provided positive reinforcement, Q 15 minute safety checks. Restraints/seclusion/emergency medication: N/A Justification of Continued Inpatient Treatment: Pt needs crisis interruption and placement in a safe and therapeutic environment until stable.
[2020-12-28] MEDS: NICOTINE POLACRILEX 2 MG LOZENGE BC PRN ×2 (06:08→14:46)
[2020-12-28] MEDS: haloperidol 5mg tablet PO SCH ×3 (07:40→20:30)
[2020-12-28] MEDS: atorvastatin 10mg tablet PO SCH (07:40)
[2020-12-28] MEDS: LORazepam 0.5 MG tablet PO SCH ×2 (07:40→20:30)
[2020-12-28] MEDS: pantoprazole 40mg Tablet.DR PO SCH (07:41)
[2020-12-28] MEDS: trihexyphenidyl HCL 5 MG tablet PO SCH ×3 (07:41→20:30)
[2020-12-28] MEDS: lithium carbonate 300mg SR tablet (LithoBID) PO SCH ×2 (07:41→20:29)
[2020-12-28 08:35] VITALS: BP 121/82
--- NOTE | 2020-12-28 17:35 | NUR ---
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 Pt public guardian is Thuy Bentley phone number # [phone]. Pt was at [place], and was becoming paranoid about his finances. It was found that 200$ of his PNI money was unaccounted for and this escalated the patient. Pt began having outbursts of anger and became increasingly paranoid and delusional towards staff and peers. Assessment What has happened this shift: Pt. awake at start of shift and pacing halls with headphones. Pt. was friendly upon greeting this RN. Pt. took meds and ate all meals in the community room. 1:1 done at bedside. Pt. reports that he takes his medications because he was seeing aliens. Pt. reports he is doing well and is in a good mood today. Pt. denies SI/HI, A/V hallucinations. In the afternoon pt. became agitated after another male peer was loudly talking to himself. Pt. thought peer was talking about him and began to loudly cuss and use derogratory language toward peer. When this RN attempted to verbally redirect pt., pt. began to berate this RN, stating, Im just bitter, you m f. When RN offered PRN medication, pt. stated, Im not taking this so you. Pt. then went back to his room and calmed down without medications. Later pt. apologized to this RN stating, I dont know why I get like that, it happens everyday, I just get in a bad mood. S/I, H/I: Denies A/VH: Denies Sleep: Pt. did not appear to nap during the day. ADL's: Independent Group attendance: Yes Were meds taken: Yes Any med S/E: Denies Mental Status Exam Appearance: Wearing a hat, suit jacket, and green scrub pants. Eye contact: Direct Behavior: Pacing the unit wearing headphones, verbally confrontational in the afternoon. Speech: Loud, using vulgarities when becoming agitated. Mood: Labile. Good in the am. In the afternoon pt. states, Im bitter. Affect: Blunted Thought process: Personalization distortions, tangential, paranoid. Thought Content: Believes other patients are talking about him. Cognition: A/Ox4 Insight: Poor to fair Judgment: Poor to fair Interventions PRN's used: Ativan offered but pt. refused. Therapeutic interventions: 1:1 assessment, establishment of rapport, therapeutic conversation, active listening, ensured contract for safety, behavior monitoring and intervention as needed; reality orientation, verbal de-escalation, limit setting, distraction redirection, elopement prevention, provided positive reinforcement, Q 15 minute safety checks. Restraints/seclusion/emergency medication: N/A Justification of Continued Inpatient Treatment: Pt needs crisis interruption and placement in a safe and therapeutic environment until stable.
[2020-12-28 20:00] VITALS: BP 110/75
[2020-12-28] MEDS: quetiapine 100mg tablet PO SCH (20:30)
--- NOTE | 2020-12-29 00:42 | NUR ---
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 Pt public guardian is Thuy Bentley phone number # [phone]. Pt was at [place], and was becoming paranoid about his finances. It was found that 200$ of his PNI money was unaccounted for and this escalated the patient. Pt began having outbursts of anger and became increasingly paranoid and delusional towards staff and peers. Assessment What has happened this shift: Pt. awake at start of shift in his room staring out the window. Greeted pt who stated he was doing alright. Pt. denies SI/HI, although states he is hearing voices. Pt states his voices aren't telling him anything "they are just there, ya' know, like no one cares." Pt calm and cooperative with assessment. Pt watched TV in community room before retiring to bed. S/I, H/I: Denies A/VH: +AH Sleep: ADL's: Independent Group attendance: Were meds taken: Yes Any med S/E: Denies Mental Status Exam Appearance: Wearing a hat, suit jacket, and green scrub pants. Eye contact: Direct Behavior: Pacing the unit wearing headphones Speech: Loud Mood: Labile. States he is "alright" Affect: Blunted Thought process: Personalization distortions, tangential, paranoid. Thought Content: Believes other patients are talking about him. Cognition: A/Ox4 Insight: Poor to fair Judgment: Poor to fair Interventions PRN's used: Therapeutic interventions: 1:1 assessment, establishment of rapport, therapeutic conversation, active listening, ensured contract for safety, behavior monitoring and intervention as needed; reality orientation, verbal de-escalation, limit setting, distraction redirection, elopement prevention, provided positive reinforcement, Q 15 minute safety checks. Restraints/seclusion/emergency medication: N/A Justification of Continued Inpatient Treatment: Pt needs crisis interruption and placement in a safe and therapeutic environment until stable.
[2020-12-29] MEDS: NICOTINE POLACRILEX 2 MG LOZENGE BC PRN (06:39)
[2020-12-29] MEDS: LORazepam 0.5 MG tablet PO SCH ×2 (07:29→20:38)
[2020-12-29] MEDS: trihexyphenidyl HCL 5 MG tablet PO SCH ×3 (07:29→20:38)
[2020-12-29] MEDS: lithium carbonate 300mg SR tablet (LithoBID) PO SCH ×2 (07:29→20:38)
[2020-12-29] MEDS: haloperidol 5mg tablet PO SCH ×3 (07:29→20:38)
[2020-12-29] MEDS: pantoprazole 40mg Tablet.DR PO SCH (07:29)
[2020-12-29] MEDS: atorvastatin 10mg tablet PO SCH (07:29)
[2020-12-29 08:00] VITALS: BP 122/81
--- NOTE | 2020-12-29 17:22 | NUR ---
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 Pt public guardian is Thuy Bentley phone number # [phone]. Pt was at [place], and was becoming paranoid about his finances. It was found that $200 of his PNI money was unaccounted for and this escalated the patient. Pt began having outbursts of anger and became increasingly paranoid and delusional towards staff and peers. Assessment What has happened this shift: Pt. awake at start of shift and sitting in room listening to headphones. Pt. took all meds and ate all meals in the community room. 1:1 done at bedside. Pt. denies SI/HI, A/V hallucinations. Pt. reports he is sorry for the conflict he caused yesterday stating, I just cant control my attitude Thats why I need my meds. 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 Pt. talked at length of memories from living on a ranch in [place] and his grandmother making him chicken dumplings. Pt. shared feelings he has for a female peer at his previous prison, pt. states, I hope she comes here. In the afternoon pt. got into a verbal altercation with a male peer after this peer was talking loudly to himself. Pt. swore at him and then stated, Im going back to my room to cool off. Pt. overheard joking with another patient in the afternoon about political topics. S/I, H/I: Denies A/VH: Denies Sleep: Pt. did not appear to nap during the day. ADL's: Independent Group attendance: No Were meds taken: Yes Any med S/E: Denies Mental Status Exam Appearance: Pt. is clean and neat wearing a hat, suit jacket, and pants. Eye contact: Direct Behavior: Pacing the unit wearing headphones, watching TV in the Rec Room, one verbal altercation with a peer. Speech: Loud Mood: Labile Affect: Blunted Thought process: Personalization distortions, tangential, paranoid. Thought Content: Circumstantial. Reminiscing at times. Cognition: A/Ox4 Insight: Fair Judgment: Poor Interventions PRN's used: None Therapeutic interventions: 1:1 assessment, establishment of rapport, therapeutic conversation, active listening, ensured contract for safety, behavior monitoring and intervention as needed; reality orientation, verbal de-escalation, limit setting, distraction redirection, elopement prevention, provided positive reinforcement, Q 15 minute safety checks. Restraints/seclusion/emergency medication: N/A Justification of Continued Inpatient Treatment: Pt needs crisis interruption and placement in a safe and therapeutic environment until stable.
[2020-12-29 19:00] VITALS: BP 128/93
[2020-12-29] MEDS: quetiapine 100mg tablet PO SCH (20:38)
--- NOTE | 2020-12-30 05:08 | NUR ---
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 Pt public guardian is Thuy Bentley phone number # [phone]. Pt was at [place], and was becoming paranoid about his finances. It was found that $200 of his PNI money was unaccounted for and this escalated the patient. Pt began having outbursts of anger and became increasingly paranoid and delusional towards staff and peers. Assessment What has happened this shift: Patient pacing the phillips and appropriately socializing with staff and peers at the beginning of shift. Pleasant and cooperative with care; compliant with medication. Denies SI, HI, A/VH; joking with typewriter operator automatic when asked about voices he smiled and reported; "lots of laughing and talking," he was explaining the unit at the time. Patient participated in HS snack and continued to walk around the unit and watch TV prior to bed. He is observed sleeping and does not appear to be having difficulty. S/I, H/I: Denies A/VH: Denies Sleep: Refer to sleep assessment ADL's: Independent Group attendance: NA Were meds taken: Yes Any med S/E: None observed or reported Mental Status Exam Appearance: Neat, clean and appropriately dressed. Eye contact: Good Behavior: Pleasant and cooperative, socializing appropriately Speech: Clear, audible Mood: Euthymic Affect: Congruent to mood Thought process: Circumstantial; no delusions expressed this shift. Thought Content: Joking with staff, meeting needs. Cognition: A/Ox4 Insight: Fair Judgment: Poor Interventions PRN's used: None Therapeutic interventions: 1:1 assessment, establishment of rapport, therapeutic conversation, active listening, ensured contract for safety, behavior monitoring and intervention as needed; reality orientation, verbal de-escalation, limit setting, distraction redirection, elopement prevention, provided positive reinforcement, Q 15 minute safety checks. Restraints/seclusion/emergency medication: N/A Justification of Continued Inpatient Treatment: Pt needs crisis interruption and placement in a safe and therapeutic environment until stable.
[2020-12-30] MEDS: trihexyphenidyl HCL 5 MG tablet PO SCH ×3 (07:31→20:09)
[2020-12-30] MEDS: LORazepam 0.5 MG tablet PO SCH ×2 (07:31→20:08)
[2020-12-30] MEDS: atorvastatin 10mg tablet PO SCH (07:31)
[2020-12-30] MEDS: haloperidol 5mg tablet PO SCH ×3 (07:31→20:08)
[2020-12-30] MEDS: pantoprazole 40mg Tablet.DR PO SCH (07:32)
[2020-12-30] MEDS: lithium carbonate 300mg SR tablet (LithoBID) PO SCH ×2 (07:32→20:10)
[2020-12-30 08:00] VITALS: BP 102/70
[2020-12-30] MEDS: NICOTINE POLACRILEX 2 MG LOZENGE BC PRN (12:22)
[2020-12-30] MEDS: LORazepam 1 MG tablet PO PRN (15:49)
--- NOTE | 2020-12-30 17:52 | NUR ---
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 Pt public guardian is Thuy Bentley phone number # [phone]. Pt was at [place], and was becoming paranoid about his finances. It was found that $200 of his PNI money was unaccounted for and this escalated the patient. Pt began having outbursts of anger and became increasingly paranoid and delusional towards staff and peers. Assessment What has happened this shift: Pt. awake at start of shift and sitting in room listening to headphones. Pt. took all meds and ate all meals in the community room. 1:1 done at bedside. Pt. reports he feels depressed but does not want to talk about it. Pt. denies SI/HI, A/V hallucinations, however, pt. appears to be responding to internal stimuli. Later, when asked how feeling, pt. states, better. Pt. observed pacing the halls wearing the headphones and watching TV in the community room. In the afternoon pt. got into verbal altercation with female peer. Pt. overheard cussing loudly and female peer thought this was directed at her. Pt. became increasingly agitated, yelling at female peer and calling her deragotory names. When offered PRN medication, pt. states, You can shove it!. Pt. was eventually able to calm down in his room alone. S/I, H/I: Denies A/VH: Denies, however, pt. appears to be responding to internal stimuli. Sleep: Pt. did not appear to nap during the day. ADL's: Independent Group attendance: NA Were meds taken: Yes Any med S/E: Denies Mental Status Exam Appearance: Pt. is clean and neat wearing a hat, suit jacket, and pants. Eye contact: Direct Behavior: Pacing the unit wearing headphones, watching TV in the Rec Room, one verbal altercation with a female peer. Speech: Loud Mood: Labile Affect: Blunted Thought process: Personalization distortions, tangential, paranoid. Thought Content: Circumstantial. Reminiscing at times. Cognition: A/Ox4 Insight: Fair Judgment: Poor Interventions PRN's used: Refused Ativan prn Therapeutic interventions: 1:1 assessment, establishment of rapport, therapeutic conversation, active listening, ensured contract for safety, behavior monitoring and intervention as needed; reality orientation, verbal de-escalation, limit setting, distraction redirection, elopement prevention, provided positive reinforcement, Q 15 minute safety checks. Restraints/seclusion/emergency medication: N/A Justification of Continued Inpatient Treatment: Pt needs crisis interruption and placement in a safe and therapeutic environment until stable.
[2020-12-30 19:45] VITALS: BP 121/76
[2020-12-30] MEDS: quetiapine 100mg tablet PO SCH (20:08)
--- NOTE | 2020-12-31 05:08 | NUR ---
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 Pt public guardian is Thuy Bentley phone number # [phone]. Pt was at [place], and was becoming paranoid about his finances. It was found that $200 of his PNI money was unaccounted for and this escalated the patient. Pt began having outbursts of anger and became increasingly paranoid and delusional towards staff and peers. Assessment What has happened this shift: Patient observed pacing the the phillips with headphones on at the beginning of shift. Pleasant and cooperative with care; compliant with medication. Patient denies SI, HI, A/VH. He appear to be internally preoccupied, no delusional thought content expressed this shift. Patient had no behavioral outbursts and no confrontations with peers this shift. He participated in HS snack and briefly watched TV in the community room prior to bed. Patient is observed sleeping and does not appear to be having difficulty. S/I, H/I: Denies A/VH: Denies Sleep: Refer to sleep assessment ADL's: Independent Group attendance: NA Were meds taken: Yes Any med S/E: None observed or reported Mental Status Exam Appearance: Neat, clean and appropriately dressed. Eye contact: Good Behavior: Pleasant and cooperative, pacing, listening to headphones, isolative to self Speech: Clear, audible Mood: Euthymic Affect: Congruent to mood Thought process: Circumstantial; no delusions expressed this shift. Thought Content: Meeting needs Cognition: A/Ox4 Insight: Fair Judgment: Poor Interventions PRN's used: None Therapeutic interventions: 1:1 assessment, establishment of rapport, therapeutic conversation, active listening, ensured contract for safety, behavior monitoring and intervention as needed; reality orientation, verbal de-escalation, limit setting, distraction redirection, elopement prevention, provided positive reinforcement, Q 15 minute safety checks. Restraints/seclusion/emergency medication: N/A Justification of Continued Inpatient Treatment: Pt needs crisis interruption and placement in a safe and therapeutic environment until stable.
[2020-12-31 07:54] VITALS: BP 112/79
[2020-12-31] MEDS: pantoprazole 40mg Tablet.DR PO SCH (08:19)
[2020-12-31] MEDS: LORazepam 0.5 MG tablet PO SCH ×2 (08:19→20:25)
[2020-12-31] MEDS: lithium carbonate 300mg SR tablet (LithoBID) PO SCH ×2 (08:19→20:25)
[2020-12-31] MEDS: trihexyphenidyl HCL 5 MG tablet PO SCH ×3 (08:20→20:25)
[2020-12-31] MEDS: atorvastatin 10mg tablet PO SCH (08:20)
[2020-12-31] MEDS: haloperidol 5mg tablet PO SCH ×3 (08:20→20:25)
[2020-12-31] MEDS: NICOTINE POLACRILEX 2 MG LOZENGE BC PRN ×2 (14:29→19:50)
--- NOTE | 2020-12-31 17:56 | NUR ---
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 Pt public guardian is Thuy Bentley phone number # [phone]. Pt was at [place], and was becoming paranoid about his finances. It was found that $200 of his PNI money was unaccounted for and this escalated the patient. Pt began having outbursts of anger and became increasingly paranoid and delusional towards staff and peers. Assessment What has happened this shift: Pt sitting in phillips at beginning of shift and was disgruntled. He states Im not paying my taxes, even for my rent. During 1:1 pt states he was upset because his roommate walked in on him when he was using the bathroom. RN expressed understanding. He took his meds without complication. When asked about MH symptoms he states yesterday I was thinking about jumping down an elevator shaft, but not today. His mood then brightened and he was pleasant. He attended group and went out to the patio. S/I, H/I: Endorses SI thoughts from yesterday but states none today. A/VH: + AH Sleep: No naps during day shift ADL's: Independent, Group attendance: Yes Were meds taken: Yes Any med S/E: None noted Mental Status Exam Appearance: Wearing his own clothes. Slightly disheveled Eye contact: Direct Behavior: Calm, pleasant, cooperative Speech: WNL Mood: Ok Affect: Congruent to mood Thought process: Thought blocking Thought Content: Circumstances Cognition: Alert Insight: Fair Judgment: Poor Interventions PRN's used: Nicotine lozenge Therapeutic interventions: 1:1 assessment, establishment of rapport, therapeutic conversation, active listening, ensured contract for safety, behavior monitoring and intervention as needed; reality orientation, verbal de-escalation, limit setting, distraction redirection, elopement prevention, provided positive reinforcement, Q 15 minute safety checks. Restraints/seclusion/emergency medication: N/A Justification of Continued Inpatient Treatment: Pt needs crisis interruption and placement in a safe and therapeutic environment until stable.
[2020-12-31 19:43] VITALS: BP 109/72
[2020-12-31] MEDS: quetiapine 100mg tablet PO SCH (20:25)
--- NOTE | 2021-01-01 05:07 | NUR ---
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 Pt public guardian is Thuy Bentley phone number # [phone]. Pt was at [place], and was becoming paranoid about his finances. It was found that $200 of his PNI money was unaccounted for and this escalated the patient. Pt began having outbursts of anger and became increasingly paranoid and delusional towards staff and peers. Assessment What has happened this shift: Patient observed sitting in chair in hallway and observing the unit at the beginning of shift. Pleasant and cooperative with care; compliant with medication. PRN Nicotine lozenge provided upon request. Patient denies SI, HI, A/VH. He does not appear to be responding to IS and no delusional thought content expressed this shift. He expressed con concern for red area on his nose, asking "what is this shit on my nose?" Patient participated in HS snack, listened to headphones at bed side and paced the halls prior to bed. Patient observed sleeping and does not appear to be having difficulty. S/I, H/I: Denies A/VH: Denies Sleep: Refer to sleep assessment ADL's: Independent Group attendance: NA Were meds taken: Yes Any med S/E: None observed or reported Mental Status Exam Appearance: Neat, clean and appropriately dressed. Eye contact: Good Behavior: Pleasant and cooperative, pacing, listening to headphones, isolative to self Speech: Clear, audible Mood: Euthymic Affect: Congruent to mood Thought process: Circumstantial; no delusions expressed this shift. Thought Content: Meeting needs, red area on his nose Cognition: A/Ox4 Insight: Fair Judgment: Poor Interventions PRN's used: Nicotine lozenge Therapeutic interventions: 1:1 assessment, establishment of rapport, therapeutic conversation, active listening, ensured contract for safety, behavior monitoring and intervention as needed; reality orientation, verbal de-escalation, limit setting, distraction redirection, elopement prevention, provided positive reinforcement, Q 15 minute safety checks. Restraints/seclusion/emergency medication: N/A Justification of Continued Inpatient Treatment: Pt needs crisis interruption and placement in a safe and therapeutic environment until stable.
[2021-01-01 07:35] VITALS: BP 118/78
[2021-01-01] MEDS: haloperidol 5mg tablet PO SCH ×4 (07:49→20:33)
[2021-01-01] MEDS: LORazepam 0.5 MG tablet PO SCH ×2 (07:49→20:34)
[2021-01-01] MEDS: atorvastatin 10mg tablet PO SCH (07:49)
[2021-01-01] MEDS: trihexyphenidyl HCL 5 MG tablet PO SCH ×3 (07:49→20:33)
[2021-01-01] MEDS: pantoprazole 40mg Tablet.DR PO SCH (07:50)
[2021-01-01] MEDS: lithium carbonate 300mg SR tablet (LithoBID) PO SCH ×2 (07:50→20:34)
--- NOTE | 2021-01-01 10:13 | NUR ---
Reassessment: Pt PO 75-100% avg regular diet meeting needs. LBM 2. No nutrition concerns at this time. Will continue to monitor. Recommend: 1. Continue regular diet 2. Bowel care as needed 3. Weekly weights Addendum: 01/01/21 at [address] Amended: Links added.
[2021-01-01] MEDS: NICOTINE POLACRILEX 2 MG LOZENGE BC PRN ×3 (10:33→19:51)
--- NOTE | 2021-01-01 17:58 | NUR ---
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 Pt public guardian is Thuy Bentley phone number # [phone]. Pt was at [place], and was becoming paranoid about his finances. It was found that $200 of his PNI money was unaccounted for and this escalated the patient. Pt began having outbursts of anger and became increasingly paranoid and delusional towards staff and peers. Assessment What has happened this shift: Pt. awake at start of shift and sitting in room listening to headphones. Pt. took all meds and ate all meals in the community room. 1:1 done at bedside. Pt. reports hearing voices, but is not sure what they are saying. Pt. also states, I was talking telepathically with a gabriella from high school last night. He was under me in the trumpet. He was jealous of me.. Pt. denies SI/HI, and VH. How pt. reports he is concerned about his roommate, states, I know he hates me. Pt. did not get into any verbal confrontations with peers today. S/I, H/I: Denies A/VH: Denies, however, pt. appears to be responding to internal stimuli. Sleep: Pt. did not appear to nap during the day. ADL's: Independent Group attendance: NA Were meds taken: Yes Any med S/E: Denies Mental Status Exam Appearance: Pt. is clean and neat wearing a hat, suit jacket, and pants. Eye contact: Direct Behavior: Pacing the unit wearing headphones, looking out window of his room, watching TV in the Rec Room, listening to headphones. Speech: Loud Mood: Labile Affect: Blunted Thought process: Personalization distortions, tangential, delusions of grandeur. Thought Content: Circumstantial. Cognition: A/Ox4 Insight: Fair Judgment: Poor Interventions PRN's used: None Therapeutic interventions: 1:1 assessment, establishment of rapport, therapeutic conversation, active listening, ensured contract for safety, behavior monitoring and intervention as needed; reality orientation, verbal de-escalation, limit setting, distraction redirection, elopement prevention, provided positive reinforcement, Q 15 minute safety checks. Restraints/seclusion/emergency medication: N/A Justification of Continued Inpatient Treatment: Pt needs crisis interruption and placement in a safe and therapeutic environment until stable.
[2021-01-01 19:37] VITALS: BP 115/75
[2021-01-01] MEDS: quetiapine 100mg tablet PO SCH (20:33)
--- NOTE | 2021-01-02 05:08 | NUR ---
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 Pt public guardian is Thuy Bentley phone number # [phone]. Pt was at [place], and was becoming paranoid about his finances. It was found that $200 of his PNI money was unaccounted for and this escalated the patient. Pt began having outbursts of anger and became increasingly paranoid and delusional towards staff and peers. Assessment What has happened this shift: Patient observed sitting in bedside chair at the beginning of shift. Shortly after came out to request Nicotine lozenge. When asked about his day he responded, "I don't know how is the cat?" Inspector Assemblies And Installations asked if he liked cats and he stated, "it's ," and walked away. He was later observed expressing irritability towards a peer he usually gets along with. Inspector Assemblies And Installations offered headphones and he explained the headphones were the same ones that he was using earlier on and "they turned up missing." He participated in HS snack and quickly returned to his room. He was pleasant and cooperative with medication. Patient observed sleeping and does not appear to be having difficulty. S/I, H/I: Denies A/VH: Appear to be responding to IS Sleep: Refer to sleep assessment ADL's: Independent Group attendance: NA Were meds taken: Yes Any med S/E: None observed or reported Mental Status Exam Appearance: Neat, clean and appropriately dressed. Eye contact: Good Behavior: Irritable, argumentative Speech: Clear, audible Mood: Agitated Affect: Congruent to mood Thought process: Delusional, tangential Thought Content: Delusions Cognition: A/Ox4 Insight: Fair Judgment: Poor Interventions PRN's used: Nicotine lozenge Therapeutic interventions: 1:1 assessment, establishment of rapport, therapeutic conversation, active listening, ensured contract for safety, behavior monitoring and intervention as needed; reality orientation, verbal de-escalation, limit setting, distraction redirection, elopement prevention, provided positive reinforcement, Q 15 minute safety checks. Restraints/seclusion/emergency medication: N/A Justification of Continued Inpatient Treatment: Pt needs crisis interruption and placement in a safe and therapeutic environment until stable.
[2021-01-02] MEDS: trihexyphenidyl HCL 5 MG tablet PO SCH ×3 (07:24→20:12)
[2021-01-02] MEDS: haloperidol 5mg tablet PO SCH ×4 (07:24→20:12)
[2021-01-02] MEDS: LORazepam 0.5 MG tablet PO SCH ×2 (07:24→20:11)
[2021-01-02] MEDS: atorvastatin 10mg tablet PO SCH (07:24)
[2021-01-02] MEDS: lithium carbonate 300mg SR tablet (LithoBID) PO SCH ×2 (07:24→20:12)
[2021-01-02] MEDS: NICOTINE POLACRILEX 2 MG LOZENGE BC PRN ×5 (07:25→20:23)
[2021-01-02 07:42] VITALS: BP 101/67
[2021-01-02] MEDS: pantoprazole 40mg Tablet.DR PO SCH (08:12)
--- NOTE | 2021-01-02 17:58 | NUR ---
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 Pt public guardian is Thuy Bentley phone number # [phone]. Pt was at [place], and was becoming paranoid about his finances. It was found that $200 of his PNI money was unaccounted for and this escalated the patient. Pt began having outbursts of anger and became increasingly paranoid and delusional towards staff and peers. Assessment What has happened this shift: Pt. awake at start of shift and sitting in room listening to headphones. Pt. took all meds and ate all meals in the community room. 1:1 done at bedside. Pt. denies SI/HI, A/V hallucinations. Pt. reports he is doing well today but that he is anxious about where he is going to go after discharge. Pt. observed watching TV in the community room. Pt. became agitated when told he had to wait for snack time for a coffee, loudly swearing and saying derogatory things. When pt. told to stop, pt. yelled, No, my sister is a ! Pt. eventually settled down after staff left his room. Later in the day pt. had a verbal altercation with a male peer, yelling obscenities at him. When told to stop pt. berated this RN as well. RN told pt. to go to his room and pt. complied where he calmed down. S/I, H/I: Denies A/VH: Denies, however, pt. appears to be responding to internal stimuli. Sleep: Pt. did not appear to nap during the day. ADL's: Independent Group attendance: No Were meds taken: Yes Any med S/E: Denies Mental Status Exam Appearance: Pt. is clean and neat wearing a hat, suit jacket, and pants. Eye contact: Direct Behavior: Mostly cooperative but periods of agitation and verbal aggression. Pacing the unit wearing headphones, looking out window of his room, watching TV in the Rec Room, listening to headphones. Speech: Loud Mood: Labile Affect: Blunted Thought process: Personalization distortions, tangential, disorganized. Thought Content: Circumstantial. Cognition: A/Ox4 Insight: Fair Judgment: Poor Interventions PRN's used: None Therapeutic interventions: 1:1 assessment, establishment of rapport, therapeutic conversation, active listening, ensured contract for safety, behavior monitoring and intervention as needed; reality orientation, verbal de-escalation, limit setting, distraction redirection, elopement prevention, provided positive reinforcement, Q 15 minute safety checks. Restraints/seclusion/emergency medication: N/A Justification of Continued Inpatient Treatment: Pt needs crisis interruption and placement in a safe and therapeutic environment until stable.
[2021-01-02 20:00] VITALS: BP 114/69
[2021-01-02] MEDS: quetiapine 100mg tablet PO SCH (20:23)
--- NOTE | 2021-01-03 04:21 | NUR ---
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 Pt public guardian is Thuy Bentley phone number # [phone]. Pt was at [place], and was becoming paranoid about his finances. It was found that $200 of his PNI money was unaccounted for and this escalated the patient. Pt began having outbursts of anger and became increasingly paranoid and delusional towards staff and peers. Assessment What has happened this shift: The patient spent most of the evening in a chair in his room. He's cooperative with 1:1, but has nothing real useful to say beyond his delusions. He was pretty quiet tonight with no outbursts or aggressive behaviors. He seems to have some thought blocking and latent responses, but answers questions appropriately and make his needs known. The patient has become fixated on discharge, and going back to [facility], which is probably unlikely S/I, H/I: Denies A/VH: Appear to be responding to IS Sleep: Refer to sleep assessment ADL's: Independent Group attendance: NA Were meds taken: Yes Any med S/E: None observed or reported Mental Status Exam Appearance: Neat, clean and appropriately dressed. Eye contact: Good Behavior: Irritable, argumentative, delusional Speech: Clear, audible Mood: Agitated Affect: Congruent to mood Thought process: Delusional, tangential Thought Content: Delusions Cognition: A/Ox4 Insight: Fair Judgment: Poor Interventions PRN's used: Nicotine lozenge Therapeutic interventions: 1:1 assessment, establishment of rapport, therapeutic conversation, active listening, ensured contract for safety, behavior monitoring and intervention as needed; reality orientation, verbal de-escalation, limit setting, distraction redirection, elopement prevention, provided positive reinforcement, Q 15 minute safety checks. Restraints/seclusion/emergency medication: N/A Justification of Continued Inpatient Treatment: Pt needs crisis interruption and placement in a safe and therapeutic environment until stable.
[2021-01-03] MEDS: NICOTINE POLACRILEX 2 MG LOZENGE BC PRN ×4 (06:32→16:21)
[2021-01-03] MEDS: lithium carbonate 300mg SR tablet (LithoBID) PO SCH ×2 (07:51→20:35)
[2021-01-03] MEDS: atorvastatin 10mg tablet PO SCH (07:51)
[2021-01-03] MEDS: pantoprazole 40mg Tablet.DR PO SCH (07:51)
[2021-01-03] MEDS: haloperidol 5mg tablet PO SCH ×4 (07:51→20:35)
[2021-01-03] MEDS: LORazepam 0.5 MG tablet PO SCH ×2 (07:51→20:35)
[2021-01-03] MEDS: trihexyphenidyl HCL 5 MG tablet PO SCH ×3 (07:51→20:35)
[2021-01-03 08:00] VITALS: BP 122/79
--- NOTE | 2021-01-03 08:31 | NUR ---
PLACEMENT Faxed placement packet to [facility] office. LEXIE Squires
--- NOTE | 2021-01-03 17:59 | NUR ---
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 Pt public guardian is Thuy Bentley phone number # [phone]. Pt was at [place], and was becoming paranoid about his finances. It was found that $200 of his PNI money was unaccounted for and this escalated the patient. Pt began having outbursts of anger and became increasingly paranoid and delusional towards staff and peers. Assessment What has happened this shift: Pt. awake at start of shift and sitting in room listening to headphones. Pt. took all meds and ate all meals in the community room. 1:1 done at bedside. Pt. appears depressed. Pt. reports he is in an "OK" mood. Pt. denies SI/HI, A/V hallucinations. Pt. reports he slept well last night. Pt. states that he may be going to a new intermediate soon and feels neutral about it. Pt. attended group. Pt. approached this RN and states he wants to fight conservatorship. Pt. given number for conservator. S/I, H/I: Denies A/VH: Denies, however, pt. appears to be responding to internal stimuli. Sleep: Pt. did not appear to nap during the day. ADL's: Independent Group attendance: Yes Were meds taken: Yes Any med S/E: Denies Mental Status Exam Appearance: Pt. is clean and neat wearing a hat, suit jacket, and pants. Eye contact: Direct Behavior: Cooperative. Pacing the unit wearing headphones, looking out window of his room, watching TV in the Rec Room, listening to headphones. Speech: Loud Mood: Depressed. Affect: Congruent with mood. Thought process: Personalization distortions, tangential, disorganized. Thought Content: Circumstantial. Wants to challenge his conservatorship. Cognition: A/Ox4 Insight: Fair Judgment: Poor Interventions PRN's used: None Therapeutic interventions: 1:1 assessment, establishment of rapport, therapeutic conversation, active listening, ensured contract for safety, behavior monitoring and intervention as needed; reality orientation, verbal de-escalation, limit setting, distraction redirection, elopement prevention, provided positive reinforcement, Q 15 minute safety checks. Restraints/seclusion/emergency medication: N/A Justification of Continued Inpatient Treatment: Pt needs crisis interruption and placement in a safe and therapeutic environment until stable.
[2021-01-03 20:00] VITALS: BP 123/78
[2021-01-03] MEDS: quetiapine 100mg tablet PO SCH (20:35)
--- NOTE | 2021-01-03 22:41 | NUR ---
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 Pt public guardian is Thuy Bentley phone number # [phone]. Pt was at [place], and was becoming paranoid about his finances. It was found that $200 of his PNI money was unaccounted for and this escalated the patient. Pt began having outbursts of anger and became increasingly paranoid and delusional towards staff and peers. Assessment What has happened this shift: The patient was up periodically in the general patient areas and other times was just sitting by himself in his room. He was very pleasant when approached for the evening assessment. He stated that he felt he was doing well. He did state he felt depressed. He also stated that "the next time I go to my conservatorship hearing I'm going to fight it" S/I, H/I: Denied A/VH: Denied Sleep: Reports he feels he wakes up too early ADL's: independant Group attendance: No groups this shift Were meds taken: yes Any med S/E none reported or observed. Mental Status Exam Appearance: The patient is dressed in street clothes a blazer on as well Eye contact: WNL Behavior: Cooperative with unit routine. He was pleasant when approached. He has not had any outbursts Speech: Spontaneous. Moderate rate and rhythm Mood: reports feeling depressed Affect: congruent to stated mood Thought process: logical replies Thought Content: difficult to fully assess. Replies minimal Cognition: alert and oriented Insight: poor Judgment: poor Justification of Continued Inpatient Treatment: The patient is here for medication stabilization and then the Public Guardian's office will seek placement.
[2021-01-04] MEDS: pantoprazole 40mg Tablet.DR PO SCH (07:24)
[2021-01-04] MEDS: atorvastatin 10mg tablet PO SCH (07:24)
[2021-01-04] MEDS: LORazepam 0.5 MG tablet PO SCH ×2 (07:24→20:21)
[2021-01-04] MEDS: haloperidol 5mg tablet PO SCH ×4 (07:24→20:22)
[2021-01-04] MEDS: lithium carbonate 300mg SR tablet (LithoBID) PO SCH ×2 (07:25→20:22)
[2021-01-04] MEDS: trihexyphenidyl HCL 5 MG tablet PO SCH ×3 (07:25→20:21)
[2021-01-04 07:43] VITALS: BP 108/57
[2021-01-04] MEDS: NICOTINE POLACRILEX 2 MG LOZENGE BC PRN ×3 (09:23→18:43)
--- NOTE | 2021-01-04 14:33 | NUR ---
Nursing Progress Note: Hardik Legal hold: LPS Client on involuntary status for GD Report received from MARTINA Fish with use of SBAR Why are they here: Patient is LPS conserved and has a hx of schizoaffective disorder and PICA. Pt Public Guardian is Thuy Frost phone number #[phone]. Pt was at [place], and was becoming paranoid about his finances. It was found that $200 of his PNI money was unaccounted for and this escalated the patient. Pt began having outbursts of anger and became increasingly paranoid and delusional towards staff and peers. Assessment What has happened this shift: Received patient awake sitting in rec room. Pt was pleasant and requested a cup of coffee. Compliant with medications and care. Pt told typewriter assembly and parts inspector I am going to fight my conservatorship now. I dont like the way they are spending my money. Pt reports he slept well. Pt stated I think my heart is on the wrong side of my body. Broke Beater Machine Operator reoriented pt that his heart was on the correct side pt stated They fixed that when they did my shoulder surgery. I had a heart stent, so they could do heart dialysis. Pt had a loud outburst around 1000 with his roommate. Pt was upset because he wanted the curtain closed and his roommate wanted it open enough to see the door. Pt became argumentative and loud, after a short time of verbal de-escalation patient calmed down. S/I, H/I: Denies both. A/VH: Denies both. At times appears internally preoccupied. Sleep: 8.75 hours per sleep assessment. Napped in afternoon. ADL's: Independent. Showered today. Group attendance: Yes Were meds taken: Yes, without issue. Any med S/E: None reported or observed. Mental Status Exam Appearance: Clean, neat. Dressed in jeans, suit jacket and baseball cap. Eye contact: Good. Behavior: Cooperative, one outburst. Paced phillips, looking out window of his room, watching TV in the Rec Room, listening to headphones. Speech: Loud at times, audible Mood: Slightly labile. Affect: Congruent with mood. Thought process: Tangential, disorganized. Thought Content: Wants to fight his conservatorship. Cognition: A/Ox4 Insight: Fair Judgment: Poor Interventions PRN's used: None Therapeutic interventions: 1:1 assessment, therapeutic conversation, active listening, reality orientation, verbal de-escalation, limit setting, distraction redirection, provided positive reinforcement, Q 15 minute safety checks. Restraints/seclusion/emergency medication: N/A Justification of Continued Inpatient Treatment: Per DIOGENES Mascorro. Pt is at baseline. Patient requires a safe and therapeutic milieu while waiting placement. Patient is LPS conserved.
--- NOTE | 2021-01-04 16:44 | NUR ---
Patient a little wound up, yelling another peer thinking he was talking about him. Pt was observed on phone earlier talking loudly to his conservator about his money. Pt declined a PRN Ativan and requested a Nicotine lozenge. Manager Transmission was able to talk with patient and explain why yelling isn't permitted on unit.
[2021-01-04] MEDS ORDERED: NICOTINE POLACRILEX 4 MG LOZENGE BC PRN (18:40)
[2021-01-04 19:27] VITALS: BP 120/72
[2021-01-04] MEDS: quetiapine 100mg tablet PO SCH (20:21)
--- NOTE | 2021-01-04 23:26 | NUR ---
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 Pt public guardian is Thuy Bentley phone number # [phone]. Pt was at [place], and was becoming paranoid about his finances. It was found that $200 of his PNI money was unaccounted for and this escalated the patient. Pt began having outbursts of anger and became increasingly paranoid and delusional towards staff and peers. Assessment What has happened this shift: The patient was up on the unit. He was very pleasant during each interaction. He appeared clean and well groomed. He has not had any outbursts with others. When asked how his mood was he stated that he felt, "a little alvarez" He denied hearing voices but then he stated that the devil was talking to him during dinner" S/I, H/I: Denied A/VH: stated that the devil was talking to him. ADL's: independant. appeared clean and well groomed Group attendance: No groups this shift Were meds taken: yes Any med S/E none reported or observed. Mental Status Exam Appearance: The patient is dressed in street clothes a blazer on as well Eye contact: WNL Behavior: Cooperative with unit routine. He was pleasant when approached. He has not had any outbursts Speech: Spontaneous. Moderate rate and rhythm Mood: "I'm a little alvarez" Affect: congruent to stated mood Thought process: logical replies Thought Content: difficult to fully assess. Replies minimal Cognition: alert and oriented Insight: poor Judgment: poor Justification of Continued Inpatient Treatment: The patient is here for medication stabilization and then the Public Guardian's office will seek placement.
[2021-01-05] MEDS: LORazepam 0.5 MG tablet PO SCH ×2 (07:53→20:06)
[2021-01-05] MEDS: lithium carbonate 300mg SR tablet (LithoBID) PO SCH ×2 (07:53→20:06)
[2021-01-05] MEDS: atorvastatin 10mg tablet PO SCH (07:53)
[2021-01-05] MEDS: trihexyphenidyl HCL 5 MG tablet PO SCH ×3 (07:53→20:05)
[2021-01-05] MEDS: haloperidol 5mg tablet PO SCH ×4 (07:53→20:06)
[2021-01-05] MEDS: pantoprazole 40mg Tablet.DR PO SCH (07:53)
[2021-01-05 08:00] VITALS: BP 86/50
[2021-01-05] MEDS: NICOTINE POLACRILEX 2 MG LOZENGE BC PRN (08:55)
--- NOTE | 2021-01-05 14:47 | NUR ---
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 Pt Public Guardian is Thuy Frost phone number #[phone]. Pt was at [place], and was becoming paranoid about his finances. It was found that $200 of his PNI money was unaccounted for and this escalated the patient. Pt began having outbursts of anger and became increasingly paranoid and delusional towards staff and peers. Assessment What has happened this shift: When asked pt how he was doing today, he replied in a glum voice, "not so good...do you have my Bowie? I really need it." Pt was cooperative with all medications. Pt has been quiet, calm, and cooperative so far this shift, no delusional statements made. Pt's Ativan was increased today from 1.5 mg BID to 1.5 mg TID and his HS Haldol was increased from 5 mg to 10 mg. S/I, H/I: Pt denies. A/VH: Pt denies. Sleep: Pt slept 8.75 hours last night per noc shift report. ADL's: Independent Group attendance: Yes Were meds taken: Yes Any med S/E: None noted or reported. Mental Status Exam Appearance: Tall, pale older appearing man with glasses and brown hair dressed in jeans, a white ribbed tank top, and a baseball cap. Eye contact: Good. Behavior: Quiet, cooperative, sits in a chair in the hallway and listens to the radio headphones. Speech: Clear, audible, normal rate and rhythm. Mood: "not so good." Affect: Depressed, blunted. Thought process: Linear Thought Content: He needs his Bowie. Cognition: A/O x 3 Insight: Fair Judgment: Fair Interventions PRN's used: None Therapeutic interventions: 1:1 assessment, therapeutic conversation, active listening, medication administration/education/monitoring, behavior monitoring and intervention as needed; reality orientation, limit setting, distraction redirection, provided positive reinforcement, Q 15 minute safety checks. Restraints/seclusion/emergency medication: N/A Justification of Continued Inpatient Treatment: Per DIOGENES Mascorro. Pt is at baseline. Patient requires a safe and therapeutic milieu while waiting placement. Patient is LPS conserved.
[2021-01-05 20:00] VITALS: BP 117/70
[2021-01-05] MEDS: QUEtiapine 25mg tablet PO PRN (20:05)
[2021-01-05] MEDS: quetiapine 100mg tablet PO SCH (20:07)
--- NOTE | 2021-01-05 23:43 | NUR ---
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 Pt Public Guardian is Thuy Frost phone number #[phone]. Pt was at [place], and was becoming paranoid about his finances. It was found that $200 of his PNI money was unaccounted for and this escalated the patient. Pt began having outbursts of anger and became increasingly paranoid and delusional towards staff and peers. Assessment What has happened this shift: pt was sitting in rec room at shift change, appearing to be in a bad mood. When approached for 1;1 pt was irritated and making delusional statements about people raping him in the ass. Pt was only mildly cooperative for 1:1, but denied having any complaints. Pt then mostly isolated to his room, occasionally swearing at people who werent there. Pt accepted hs meds without issue. S/I, H/I: Pt denies. A/VH: Pt denies. Sleep: see sleep assessment ADL's: Independent Group attendance: Yes Were meds taken: Yes Any med S/E: None noted or reported. Mental Status Exam Appearance: in own clothing, wnl Eye contact: Good. Behavior: agitated, fatigued Speech: Clear, audible, normal rate and rhythm. Mood: labile Affect: Depressed, blunted. Thought process: Linear Thought Content: paranoid delusions Cognition: A/O x 3 Insight: Fair Judgment: Fair Interventions PRN's used: None Therapeutic interventions: 1:1 assessment, therapeutic conversation, active listening, medication administration/education/monitoring, behavior monitoring and intervention as needed; reality orientation, limit setting, distraction redirection, provided positive reinforcement, Q 15 minute safety checks. Restraints/seclusion/emergency medication: N/A Justification of Continued Inpatient Treatment: Per DIOGENES Mascorro. Pt is at baseline. Patient requires a safe and therapeutic milieu while waiting placement. Patient is LPS conserved.
[2021-01-06] MEDS: atorvastatin 10mg tablet PO SCH (07:30)
[2021-01-06] MEDS: trihexyphenidyl HCL 5 MG tablet PO SCH ×3 (07:30→20:01)
[2021-01-06] MEDS: pantoprazole 40mg Tablet.DR PO SCH (07:30)
[2021-01-06] MEDS: haloperidol 5mg tablet PO SCH ×4 (07:31→20:01)
[2021-01-06] MEDS: lithium carbonate 300mg SR tablet (LithoBID) PO SCH ×2 (07:31→20:01)
[2021-01-06] MEDS: LORazepam 0.5 MG tablet PO SCH ×3 (07:31→20:00)
--- NOTE | 2021-01-06 07:47 | NUR ---
PLACEMENT UPDATE [facility] office received packet, waiting for Public Guardian to advise on placement level. LEXIE Squires
[2021-01-06 08:00] VITALS: BP 129/83
--- NOTE | 2021-01-06 13:43 | NUR ---
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 Pt Public Guardian is Thuy Frost phone number #[phone]. Pt was at [place], and was becoming paranoid about his finances. It was found that $200 of his PNI money was unaccounted for and this escalated the patient. Pt began having outbursts of anger and became increasingly paranoid and delusional towards staff and peers. Assessment What has happened this shift: Pt was up before breakfast today watching TV in the rec room. He was pleasant and cooperative with meds. Pt is delusional. Pt made statements about aliens. "I had a really rude alien enter my heart, he peeled the door open and crashed down...you know that little alien?' Pt remained calm today despite having delusions. S/I, H/I: Pt denies. A/VH: Pt denies. Sleep: Pt slept 8.25 hours last night per noc shift report. ADL's: Independent Group attendance: No groups today. Were meds taken: Yes Any med S/E: None noted or reported. Mental Status Exam Appearance: Tall, pale older appearing man with glasses and brown hair dressed in jeans, a white ribbed tank top, and a baseball cap. Eye contact: Good. Behavior: Quiet, cooperative, sits in a chair in the hallway and listens to the radio headphones. Speech: Clear, audible, normal rate and rhythm. Mood: Good Affect: Euthymic Thought process: Delusional Thought Content: Delusional thoughts about aliens invading his body. Cognition: A/O x 3 Insight: Fair Judgment: Fair Interventions PRN's used: None Therapeutic interventions: 1:1 assessment, therapeutic conversation, active listening, medication administration/education/monitoring, behavior monitoring and intervention as needed; reality orientation, limit setting, distraction redirection, provided positive reinforcement, Q 15 minute safety checks. Restraints/seclusion/emergency medication: N/A Justification of Continued Inpatient Treatment: Per DIOGENES Mascorro. Pt is at baseline. Patient requires a safe and therapeutic milieu while waiting placement. Patient is LPS conserved.
[2021-01-06] MEDS: NICOTINE POLACRILEX 2 MG LOZENGE BC PRN ×2 (14:02→18:29)
[2021-01-06 19:00] VITALS: BP 122/73
[2021-01-06] MEDS: quetiapine 100mg tablet PO SCH (20:02)
[2021-01-06] MEDS: QUEtiapine 25mg tablet PO PRN (23:38)
--- NOTE | 2021-01-06 23:49 | NUR ---
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 Pt Public Guardian is Thuy Frost phone number #[phone]. Pt was at [place], and was becoming paranoid about his finances. It was found that $200 of his PNI money was unaccounted for and this escalated the patient. Pt began having outbursts of anger and became increasingly paranoid and delusional towards staff and peers. Assessment What has happened this shift: Pt was in a better mood this evening. Pt made several delusional statements but none were angry or towards others. Pt was dressed in his own clothes, with his Indians hat on. Pt appears less labile this evening as compared to others. Pt accepted hs meds without issue. Pt later awoke and requested prn Seroquel for insomnia. S/I, H/I: Pt denies. A/VH: Pt denies. Sleep: see sleep assessment ADL's: Independent Group attendance: No groups today. Were meds taken: Yes Any med S/E: None noted or reported. Mental Status Exam Appearance: Tall, pale older appearing man with glasses and brown hair dressed in jeans, a white ribbed tank top, and a baseball cap. Eye contact: Good. Behavior: Quiet, cooperative, sits in a chair in the hallway and listens to the radio headphones. Speech: Clear, audible, normal rate and rhythm. Mood: Good Affect: Euthymic Thought process: Delusional Thought Content: Delusional thoughts about aliens invading his body. Cognition: A/O x 3 Insight: Fair Judgment: Fair Interventions PRN's used: None Therapeutic interventions: 1:1 assessment, therapeutic conversation, active listening, medication administration/education/monitoring, behavior monitoring and intervention as needed; reality orientation, limit setting, distraction redirection, provided positive reinforcement, Q 15 minute safety checks. Restraints/seclusion/emergency medication: N/A Justification of Continued Inpatient Treatment: Per DIOGENES Mascorro. Pt is at baseline. Patient requires a safe and therapeutic milieu while waiting placement. Patient is LPS conserved.
[2021-01-07 07:41] VITALS: BP 118/69
[2021-01-07] MEDS: atorvastatin 10mg tablet PO SCH (07:41)
[2021-01-07] MEDS: pantoprazole 40mg Tablet.DR PO SCH (07:41)
[2021-01-07] MEDS: haloperidol 5mg tablet PO SCH ×4 (07:41→20:18)
[2021-01-07] MEDS: lithium carbonate 300mg SR tablet (LithoBID) PO SCH ×2 (07:41→20:17)
[2021-01-07] MEDS: trihexyphenidyl HCL 5 MG tablet PO SCH ×3 (07:41→20:17)
[2021-01-07] MEDS: LORazepam 0.5 MG tablet PO SCH ×3 (07:41→13:00)
[2021-01-07] MEDS: acetaminophen 325mg tablet PO PRN (07:43)
[2021-01-07] MEDS: NICOTINE POLACRILEX 2 MG LOZENGE BC PRN ×2 (08:15→19:25)
--- NOTE | 2021-01-07 17:08 | NUR ---
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 Pt Public Guardian is Thuy Frost phone number #[phone]. Pt was at [place], and was becoming paranoid about his finances. It was found that $200 of his PNI money was unaccounted for and this escalated the patient. Pt began having outbursts of anger and became increasingly paranoid and delusional towards staff and peers. Assessment What has happened this shift: Pt was irritable today after breakfast. Pt was upset about his routine Ativan especially in the morning. Pt stated that the Ativan "should only be a PRN for when I act up." Explained to the pt that the doctor felt that he needed it routinely right now. Pt stated he doesn't have a doctor anymore. Reminded pt that Kamaljit SHETTY has been seeing him. Pt stated, "fucradha Mari." Pt was largely avoidant of this nurse today. Overheard pt having a conversation in front of the nurses' station with the community relations director. Somehow the phrase "3 hots and a cot" came into the conversation. Pt was insistent that the saying was not "3 hots and a cot" but "3 squares and a cot" meaning 3 square meals and a cot, he could not be convinced otherwise. Pt asked the community relations director if she knew how they made the chicken in chicken and dumplings, "you know what the chicken is made of? White Spotted Owl...my grandmother used to trap them...I like beef." Pt refused his routine 1300 Ativan. He took the med cup, picked out his Haldol and Artane out and took them but left the 3 small white Ativan pills. Pt would not look at this RN. Reminded pt that he needed to take the medication that his provider ordered and that we would talk more about it after lunch. After lunch, went to pt's room and encouraged him again to take his Ativan. Pt had been sitting in a chair by his bed. He ignored this RN, got up and walked to the bathroom. Notified DIOGENES Baum that pt had refused his 1300 scheduled Ativan. DIOGENES decreased the Ativan from 1.5 mg TID to 0.5 mg daily and 1.5 mg BIDLD. He instructed to inform pt that if he could demonstrate through his behaviors that he no longer needed the Ativan then it would be decreased and D/c'd. This RN spoke with the pt in his room about the Ativan being decreased and conveyed what DIOGENES Baum had said about it being up to him (the pt) to show through his control of his behaviors that he no longer needs the Ativan. Pt stared at this RN with a flat expression and would not speak. S/I, H/I: Pt denies. A/VH: Pt denies. Sleep: Pt slept 8 hours last night per noc shift report. ADL's: Independent Group attendance: No groups today. Were meds taken: Pt refused his 1300 Ativan 1.5 mg dose. Any med S/E: Pt c/o feeling tired from the Ativan. Mental Status Exam Appearance: Tall, pale older appearing man with glasses and brown hair dressed in a lama suit, a white ribbed tank top, and a baseball cap. Eye contact: Poor to fair. Behavior: Resistant to routine Ativan, avoidant of this RN, spent most of the day sitting in a room in his chair, isolating to self. Speech: Clear, audible, normal rate and rhythm, minimal today. Mood: Irritable with mild agitation. Affect: Constricted Thought process: Delusional Thought Content: He does not need routine Ativan, the chicken in chicken and dumplings is made from White Spotted Owl meat. Cognition: A/O x 3 Insight: Poor Judgment: Poor Interventions PRN's used: None Therapeutic interventions: 1:1 assessment, therapeutic conversation, active listening, medication administration/education/monitoring, encouragement to take medications as ordered, behavior monitoring and intervention as needed; reality orientation, limit setting, distraction, redirection, provided encouragement and positive reinforcement, Q 15 minute safety checks. Restraints/seclusion/emergency medication: N/A Justification of Continued Inpatient Treatment: Per DIOGENES Mascorro. Pt is at baseline. Patient requires a safe and therapeutic milieu while waiting placement. Patient is LPS conserved. Addendum: 01/07/21 at 1807 by Mi Diaz RN (Lee) Pt refused his routine 1729 Ativan 1.5 mg. He was adamant stating to call the vp public relations, he doesn't take Ativan at this time, only Haldol. Pt became oppositional and argumentative with staff. Reality orientation that pt is conserved and has to take his psych meds ineffective. Pt went to his room. Called DIOGENSE Baum to notify him of pt's refusal to take the medication. DIOGENES Baum instructed to hold the Ativan for tonight and we will see if pt agrees to take it tomorrow.
[2021-01-07] MEDS ORDERED: LORazepam 1 MG tablet PO SCH (17:30)
[2021-01-07] MEDS ORDERED: LORazepam 0.5 MG tablet PO ONE (17:45)
[2021-01-07] MEDS: quetiapine 100mg tablet PO SCH (20:17)
[2021-01-07] MEDS: QUEtiapine 25mg tablet PO PRN (20:18)
[2021-01-07 20:21] VITALS: BP 115/81
--- NOTE | 2021-01-07 23:45 | NUR ---
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 Pt Public Guardian is Thuy Frost phone number #[phone]. Pt was at [place], and was becoming paranoid about his finances. It was found that $200 of his PNI money was unaccounted for and this escalated the patient. Pt began having outbursts of anger and became increasingly paranoid and delusional towards staff and peers. Assessment What has happened this shift: Pt was irritable today at shift change yelling at the charge nurse. Pt up set about taking Ativan. At med pass pt said I will take what ever med you give me after all this is not morning meds. Be sides I'm an Ass hole that what they call me. Pt was calm the rest of the shift Med compliant and cooperative. S/I, H/I: Pt denies. A/VH: Pt denies. Sleep: See sleep Hrs. ADL's: Independent Group attendance: No groups today. Were meds taken: Pt refused his 1300 Ativan 1.5 mg dose. Any med S/E: Pt c/o feeling tired from the Ativan. Mental Status Exam Appearance: Tall, pale older appearing man with glasses and brown hair dressed in a lama suit, a white ribbed tank top, and a baseball cap. Eye contact: Poor to fair. Behavior: Resistant to routine Ativan, avoidant of this RN, spent most of the day sitting in a room in his chair, isolating to self. Speech: Clear, audible, normal rate and rhythm, minimal today. Mood: Irritable with mild agitation. Affect: Constricted Thought process: Delusional Thought Content: He does not need routine Ativan, the chicken in chicken and dumplings is made from White Spotted Owl meat. Cognition: A/O x 3 Insight: Poor Judgment: Poor Interventions PRN's used: None Therapeutic interventions: 1:1 assessment, therapeutic conversation, active listening, medication administration/education/monitoring, encouragement to take medications as ordered, behavior monitoring and intervention as needed; reality orientation, limit setting, distraction, redirection, provided encouragement and positive reinforcement, Q 15 minute safety checks. Restraints/seclusion/emergency medication: N/A Justification of Continued Inpatient Treatment: Per DIOGENES Mascorro. Pt is at baseline. Patient requires a safe and therapeutic milieu while waiting placement. Patient is LPS conserved.
[2021-01-08] MEDS: acetaminophen 325mg tablet PO PRN (05:18)
[2021-01-08] MEDS: atorvastatin 10mg tablet PO SCH (07:27)
[2021-01-08] MEDS: lithium carbonate 300mg SR tablet (LithoBID) PO SCH ×2 (07:28→19:49)
[2021-01-08] MEDS: haloperidol 5mg tablet PO SCH ×4 (07:28→20:01)
[2021-01-08] MEDS: trihexyphenidyl HCL 5 MG tablet PO SCH ×3 (07:28→20:01)
[2021-01-08] MEDS: pantoprazole 40mg Tablet.DR PO SCH (07:28)
[2021-01-08] MEDS: LORazepam 0.5 MG tablet PO SCH ×3 (07:31→17:23)
[2021-01-08 08:00] VITALS: BP 108/75
--- NOTE | 2021-01-08 10:44 | NUR ---
Reassessment: Pt PO 75-100% avg regular diet meeting needs. LBM 01/07. No nutrition concerns at this time. Will continue to monitor. Recommend: 1. Continue regular diet 2. Bowel care as needed 3. Weekly weights Addendum: 01/08/21 at [address] Amended: Links added.
[2021-01-08] MEDS: NICOTINE POLACRILEX 2 MG LOZENGE BC PRN ×2 (15:32→18:57)
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
[2021-01-08 19:59] VITALS: BP 130/70
[2021-01-08] MEDS: quetiapine 100mg tablet PO SCH (20:01)
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
[2021-01-09] MEDS: QUEtiapine 25mg tablet PO PRN (05:06)
[2021-01-09] MEDS: atorvastatin 10mg tablet PO SCH (07:26)
[2021-01-09] MEDS: trihexyphenidyl HCL 5 MG tablet PO SCH ×3 (07:27→21:00)
[2021-01-09] MEDS: lithium carbonate 300mg SR tablet (LithoBID) PO SCH ×2 (07:27→21:00)
[2021-01-09] MEDS: pantoprazole 40mg Tablet.DR PO SCH (07:27)
[2021-01-09] MEDS: LORazepam 0.5 MG tablet PO SCH ×3 (07:27→17:15)
[2021-01-09] MEDS: haloperidol 5mg tablet PO SCH ×4 (07:27→21:00)
[2021-01-09 08:04] VITALS: BP 118/78
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
[2021-01-09] MEDS: NICOTINE POLACRILEX 2 MG LOZENGE BC PRN ×2 (16:14→18:34)
[2021-01-09] MEDS: acetaminophen 325mg tablet PO PRN (19:06)
[2021-01-09 19:51] VITALS: BP 120/77
[2021-01-09] MEDS: quetiapine 100mg tablet PO SCH (21:00)
--- NOTE | 2021-01-10 00:41 | NUR ---
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 Pt Public Guardian is Thuy Frost phone number #[phone]. Pt was at [place], and was becoming paranoid about his finances. It was found that $200 of his PNI money was unaccounted for and this escalated the patient. Pt began having outbursts of anger and became increasingly paranoid and delusional towards staff and peers. Assessment What has happened this shift: Pt up on unit at start of shift. Pleasant and cooperative. Affect smiling and bright no outbursts. Pt did not make any delusional statements but was quiet most of shift. Pt verbalized understanding of plan to taper Ativan. S/I, H/I: Pt denies both. A/VH: Pt denies both. Sleep: Asleep at this time ADL's: Independent Group attendance: Yes. Were meds taken: Yes, Any med S/E: None reported or observed. Mental Status Exam Appearance: Tall, pale older appearing man with glasses and brown hair dressed in a lama suit, a white ribbed tank top, and a baseball cap. Pt wears face mask. Eye contact: Fair. Behavior: Cooperative, watched T.V or sat in the chair in his room. Speech: Clear, audible, normal rate and rhythm, minimal today. Mood: "good" Affect: Constricted Thought process: Delusional Thought Content: Situational. Cognition: A/O x 3 Insight: Poor Judgment: Poor Interventions PRN's used: None Therapeutic interventions: 1:1 assessment, therapeutic conversation, active listening, medication administration/education/monitoring, encouragement to take medications as ordered, behavior monitoring and intervention as needed; reality orientation, limit setting, distraction, redirection, provided encouragement and positive reinforcement, Q 15 minute safety checks. Restraints/seclusion/emergency medication: N/A Justification of Continued Inpatient Treatment: Per DIOGENES Mascorro. Pt is at baseline. Patient requires a safe and therapeutic milieu while waiting placement. Patient is LPS conserved.
[2021-01-10] MEDS: NICOTINE POLACRILEX 2 MG LOZENGE BC PRN ×2 (05:18→10:51)
[2021-01-10] MEDS: acetaminophen 325mg tablet PO PRN (05:19)
[2021-01-10] MEDS: haloperidol 5mg tablet PO SCH ×4 (07:25→20:23)
[2021-01-10] MEDS: LORazepam 0.5 MG tablet PO SCH ×3 (07:25→17:14)
[2021-01-10] MEDS: lithium carbonate 300mg SR tablet (LithoBID) PO SCH ×2 (07:25→20:23)
[2021-01-10] MEDS: pantoprazole 40mg Tablet.DR PO SCH (07:25)
[2021-01-10] MEDS: trihexyphenidyl HCL 5 MG tablet PO SCH ×3 (07:25→20:23)
[2021-01-10] MEDS: atorvastatin 10mg tablet PO SCH (07:25)
[2021-01-10 07:30] VITALS: BP 113/78
--- NOTE | 2021-01-10 15:02 | NUR ---
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 Pt Public Guardian is Thuy Frost phone number #[phone]. Pt was at [place], and was becoming paranoid about his finances. It was found that $200 of his PNI money was unaccounted for and this escalated the patient. Pt began having outbursts of anger and became increasingly paranoid and delusional towards staff and peers. Assessment What has happened this shift: Patient was sleeping at shift change, no distress noted. Pt woke prior to breakfast and requested a cup of coffee. Pt sat in rec room watching T.V until breakfast. Pt paces phillips listening to headphones or sitting in his room. Pt was relatively calm today for pt. Pt had a moment with video game script writer during 1300 med pass. Pt declined meds at first because his Artane was up from pharmacy. "I am not taking my meds until I get my Artane!" "You are not my mother!" Pt later apologized and said "you look my mother." "That is a good thing." S/I, H/I: Pt denies both. "Na. " A/VH: Pt denies both. "Na." Sleep: 8.0 hours per sleep assessment. No naps today. ADL's: Independent. Group attendance: No. Were meds taken: Yes, without issue. Any med S/E: None reported or observed. Mental Status Exam Appearance: Tall, pale older appearing man with glasses and brown hair dressed in a lama suit, a white ribbed tank top, and a baseball cap. Pt wears face mask. Eye contact: Fair. Behavior: Cooperative, watched T.V or sat in the chair in his room. Paced phillips listening to head phones. Speech: Clear, audible, normal rate and rhythm, minimal today. Mood: "I am fine." "You don't have to worry." Affect: Constricted Thought process: Delusional Thought Content: Situational. Cognition: A/O x 3 Insight: Poor Judgment: Poor Interventions PRN's used: None Therapeutic interventions: 1:1 assessment, therapeutic conversation, active listening, medication administration/education/monitoring, encouragement to take medications as ordered, behavior monitoring and intervention as needed; reality orientation, limit setting, distraction, redirection, provided encouragement and positive reinforcement, Q 15 minute safety checks. Restraints/seclusion/emergency medication: N/A Justification of Continued Inpatient Treatment: Per DIOGENES Mascorro. Pt is at baseline. Patient requires a safe and therapeutic milieu while waiting placement. Patient is LPS conserved.
[2021-01-10] MEDS: quetiapine 100mg tablet PO SCH (20:23)
[2021-01-10 20:38] VITALS: BP 110/76
--- NOTE | 2021-01-11 02:28 | NUR ---
Nursing Progress Note: Hardik Legal hold: LPS Client on involuntary status for GD Report received from MARTINA Forrest with use of SBAR Why are they here: Patient is LPS conserved and has a hx of schizoaffective disorder and PICA. Pt Public Guardian is Thuy Frost phone number #[phone]. Pt was at [place], and was becoming paranoid about his finances. It was found that $200 of his PNI money was unaccounted for and this escalated the patient. Pt began having outbursts of anger and became increasingly paranoid and delusional towards staff and peers. Assessment What has happened this shift: Pt up and sitting in his room in the dark. No complaints, pt states he is doing well and was proud of how he made his bed. Pt calm and cooperative, no outbursts during this shift. Pt took all NOC meds and went to bed. S/I, H/I: Pt denies both. A/VH: Pt denies both. Sleep: ADL's: Independent. Group attendance: No. Were meds taken: Yes, without issue. Any med S/E: None reported or observed. Mental Status Exam Appearance: Tall, pale older appearing man with glasses and brown hair dressed in a lama suit, a white ribbed tank top, and a baseball cap. Pt wears face mask. Eye contact: Fair. Behavior: Cooperative, watched T.V or sat in the chair in his room. Speech: Clear, audible, normal rate and rhythm, minimal today. Mood: "I am good. Affect: Constricted Thought process: Delusional Thought Content: Situational. Cognition: A/O x 3 Insight: Poor Judgment: Poor Interventions PRN's used: None Therapeutic interventions: 1:1 assessment, therapeutic conversation, active listening, medication administration/education/monitoring, encouragement to take medications as ordered, behavior monitoring and intervention as needed; reality orientation, limit setting, distraction, redirection, provided encouragement and positive reinforcement, Q 15 minute safety checks. Restraints/seclusion/emergency medication: N/A Justification of Continued Inpatient Treatment: Per DIOGENES Mascorro. Pt is at baseline. Patient requires a safe and therapeutic milieu while waiting placement. Patient is LPS conserved.
[2021-01-11] MEDS: lithium carbonate 300mg SR tablet (LithoBID) PO SCH ×2 (07:37→21:06)
[2021-01-11] MEDS: LORazepam 0.5 MG tablet PO SCH ×3 (07:37→17:37)
[2021-01-11] MEDS: atorvastatin 10mg tablet PO SCH (07:37)
[2021-01-11] MEDS: haloperidol 5mg tablet PO SCH ×4 (07:37→21:06)
[2021-01-11] MEDS: pantoprazole 40mg Tablet.DR PO SCH (07:37)
[2021-01-11] MEDS: trihexyphenidyl HCL 5 MG tablet PO SCH ×3 (07:37→21:06)
[2021-01-11 08:01] VITALS: BP 115/74
--- NOTE | 2021-01-11 16:44 | NUR ---
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 Pt Public Guardian is Thuy Frost phone number #[phone]. Pt was at [place], and was becoming paranoid about his finances. It was found that $200 of his PNI money was unaccounted for and this escalated the patient. Pt began having outbursts of anger and became increasingly paranoid and delusional towards staff and peers. Assessment What has happened this shift: Received Pt in bed sleeping without distress at beginning of shift. Pt woke and was cooperative with vitals. He attended breakfast and all meals and ate well. Pt ate snacks as well today. He was irritable most of the day, but did not need PRN medication. Pt sat in his room and by the window a lot today. He would come out and sit in hallway by nurses station or in Rec. Room as well. He became angry at one point stating Am I being sued? Is that why the Dr is giving me ativan!. Pt able to calm with some explanations but remained irritated with short responses and random disorganized outbursts throughout the day. S/I, H/I: Pt denies A/VH: Pt denies Sleep: None this shift ADL's: Independent. Group attendance: No Were meds taken: Yes Any med S/E: None reported or observed Mental Status Exam Appearance: Casual in own clothes Eye contact: Fair Behavior: Cooperative, yet irritated. Sat in the chair in his room. Paced halls and sat in Rec. Rm Speech: Clear, loud, normal rate and rhythm Mood: Angry/ irritable Affect: Constricted Thought process: Delusional Thought Content: Situational Cognition: A/O x 3 Insight: Poor Judgment: Poor Interventions PRN's used: None Therapeutic interventions: 1:1 assessment, therapeutic conversation, active listening, medication administration/education/monitoring, encouragement to take medications as ordered, behavior monitoring and intervention as needed; reality orientation, limit setting, distraction, redirection, provided encouragement and positive reinforcement, Q 15 minute safety checks. Restraints/seclusion/emergency medication: N/A Justification of Continued Inpatient Treatment: Per DIOGENES Mascorro. Pt is at baseline. Patient requires a safe and therapeutic milieu while waiting placement. Patient is LPS conserved.
[2021-01-11] MEDS: NICOTINE POLACRILEX 2 MG LOZENGE BC PRN (18:46)
[2021-01-11 20:00] VITALS: BP 94/55
[2021-01-11] MEDS: quetiapine 100mg tablet PO SCH (21:06)
[2021-01-11] MEDS ORDERED: LORazepam 2 mg/ml vial ONE (21:19)
[2021-01-11] MEDS ORDERED: haloperidol lactate 5mg/ml inj ONE (21:20)
[2021-01-11] MEDS ORDERED: diphenhydrAMINE 50 mg/ml inj ONE (21:21)
--- NOTE | 2021-01-12 02:43 | NUR ---
Nursing Progress Note Hardik Legal hold: LPS Client on involuntary status for GD Report received from MARTINA Brock with use of SBAR Why are they here: Patient is LPS conserved and has a hx of schizoaffective disorder and PICA. Pt Public Guardian is Thuy Frost phone number #[phone]. Pt was at [place], and was becoming paranoid about his finances. It was found that $200 of his PNI money was unaccounted for and this escalated the patient. Pt began having outbursts of anger and became increasingly paranoid and delusional towards staff and peers. Assessment What has happened this shift: Received pt in his room sitting at the side of the bed. Pt didnt have much to say about his day except that it was a day. Gave pt his NOC meds and around 2044 pt wanted to go to sleep. He asked his roommate to turn the light off which the roommate said he had until 2199 to turn the light off. Hardik became very irritable and was screaming I want to go to sleep! I have to sleep with the light on all night! The CN offered a eye mask but the pt stated it doesnt work. Pt continued to be very agitated and the CN got an order for Ativan 2MG, [id number], Benadryl 50MG. At 0 pt up and wondering the halls obnoxious yelling that he is going to [place] us all and that we are war monsters. S/I, H/I: Pt denies A/VH: Pt denies Sleep: None this shift ADL's: Independent. Group attendance: No Were meds taken: Yes Any med S/E: None Mental Status Exam Appearance: Casual in own clothes Eye contact: Fair Behavior: Very irritable this evening with his roommate. Speech: Clear, loud, obnoxious Mood: Angry/ irritable Affect: Constricted Thought process: Delusional Thought Content: Situational Cognition: A/O x 3 Insight: Poor Judgment: Poor Interventions PRN's used: Ativan, Haldol, Benadryl Therapeutic interventions: 1:1 assessment, therapeutic conversation, active listening, medication administration/education/monitoring, encouragement to take medications as ordered, behavior monitoring and intervention as needed; reality orientation, limit setting, distraction, redirection, provided encouragement and positive reinforcement, Q 15 minute safety checks. Restraints/seclusion/emergency medication: N/A Justification of Continued Inpatient Treatment: Per DIOGENES Mascorro. Pt is at baseline. Patient requires a safe and therapeutic milieu while waiting placement. Patient is LPS conserved.
[2021-01-12] MEDS: LORazepam 0.5 MG tablet PO SCH ×3 (07:53→17:51)
[2021-01-12] MEDS: atorvastatin 10mg tablet PO SCH (07:53)
[2021-01-12] MEDS: haloperidol 5mg tablet PO SCH ×4 (07:54→20:12)
[2021-01-12] MEDS: lithium carbonate 300mg SR tablet (LithoBID) PO SCH ×2 (07:54→20:13)
[2021-01-12] MEDS: pantoprazole 40mg Tablet.DR PO SCH (07:54)
[2021-01-12] MEDS: trihexyphenidyl HCL 5 MG tablet PO SCH ×3 (07:54→20:10)
[2021-01-12 08:00] VITALS: BP 96/64
[2021-01-12] MEDS: NICOTINE POLACRILEX 2 MG LOZENGE BC PRN (09:11)
[2021-01-12] MEDS ORDERED: haloperidol 5mg tablet PO ONE (12:00)
[2021-01-12] MEDS ORDERED: haloperidol lactate 5mg/ml inj ONE (12:02)
[2021-01-12] MEDS ORDERED: LORazepam 2 mg/ml vial ONE (12:04)
[2021-01-12] MEDS ORDERED: diphenhydrAMINE 50 mg/ml inj ONE (12:05)
--- NOTE | 2021-01-12 15:26 | NUR ---
PLACEMENT UPDATE Declined at [facility] and [facility] both facilites feel he is not a good fit for their milieu. The client was recently at [facility] and he was disruptive and aggressive to peers and staff. Declined at [facility] Our team said he is still too unstable". Declined at [facility] who reported this client isn't a good for this facility, he didn't do well the last time he was admitted. ---- waiting for PG to advise on placement. Paint Crew Supervisor faxed updated notes from 01/03-current today to [facility] office. LEXIE Squires
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
[2021-01-12] MEDS: quetiapine 100mg tablet PO SCH (20:18)
--- NOTE | 2021-01-13 03:25 | NUR ---
Nursing Progress Note Hardik Legal hold: LPS Client on involuntary status for GD Report received from MARTINA Skinner with use of SBAR Why are they here: Patient is LPS conserved and has a hx of schizoaffective disorder and PICA. Pt Public Guardian is Thuy Frost phone number #[phone]. Pt was at [place], and was becoming paranoid about his finances. It was found that $200 of his PNI money was unaccounted for and this escalated the patient. Pt began having outbursts of anger and became increasingly paranoid and delusional towards staff and peers. Assessment What has happened this shift: Received pt lying in bed with eyes closed and headphones on. Woke pt up for med pass, pt calm and cooperative with care and medication compliant. Pt stated he is better and less stressed now that he was able to switch rooms. Pt changed into green scrubs and went to bed. S/I, H/I: Denies A/VH: Denies Sleep: ADL's: Independent Group attendance: Were meds taken: Yes Any med S/E: None reported or observed Mental Status Exam Appearance: Casual in own clothes Eye contact: Fair Behavior: isolating to his room. listening to headphones. Speech: WNL Mood: Angry. Affect: Congruent with affect. Thought process: Delusional Thought Content: Feeling "less stressed" Cognition: A & O X3 Insight: Poor Judgment: Poor Interventions PRN's used: None Therapeutic interventions: 1:1 assessment, therapeutic conversation, active listening, medication administration/education/monitoring, encouragement to take medications as ordered, behavior monitoring and intervention as needed; reality orientation, limit setting, distraction, redirection, provided encouragement and positive reinforcement, Q 15 minute safety checks. Restraints/seclusion/emergency medication: N/A Justification of Continued Inpatient Treatment: Per DIOGENES Mascorro. Pt is at baseline. Patient requires a safe and therapeutic milieu while waiting placement. Patient is LPS conserved.
[2021-01-13] MEDS: pantoprazole 40mg Tablet.DR PO SCH (07:47)
[2021-01-13] MEDS: lithium carbonate 300mg SR tablet (LithoBID) PO SCH ×2 (07:47→20:34)
[2021-01-13] MEDS: atorvastatin 10mg tablet PO SCH (07:47)
[2021-01-13] MEDS: haloperidol 5mg tablet PO SCH ×4 (07:47→20:35)
[2021-01-13] MEDS: LORazepam 0.5 MG tablet PO SCH ×3 (07:47→17:35)
[2021-01-13] MEDS: trihexyphenidyl HCL 5 MG tablet PO SCH ×3 (07:47→20:35)
[2021-01-13 07:56] VITALS: BP 121/84
--- NOTE | 2021-01-13 17:57 | NUR ---
Nursing Progress Note Legal hold: LPS Client on involuntary status for GD Report received from Veronica Jones RN with use of SBAR Why are they here: Patient is LPS conserved and has a hx of schizoaffective disorder and PICA. Pt Public Guardian is Thuy Frost phone number #[phone]. Pt was at [place], and was becoming paranoid about his finances. It was found that $200 of his PNI money was unaccounted for and this escalated the patient. Pt began having outbursts of anger and became increasingly paranoid and delusional towards staff and peers. Assessment What has happened this shift: Pt. awake at start of shift and listening to headphones. Pt. took all medications and ate all meals in the community room. Pt. refused 1:1 and physical assessments. In the afternoon pt.'s mood brightened in the afternoon and allowed 1:1 interview. Pt. reports he is in a better mood now, states, "It's just the time of day I suppose". Pt. reports he is happy that his room was changed and that he slept well last night. Pt. denies SI/HI, A/V hallucinations. Pt. reports he will come to afternoon group. Pt. observed in afternoon group but did not appear to participate. S/I, H/I: Denies A/VH: Denies Sleep: Pt. did not appear to nap today. ADL's: Independent Group attendance: Yes but did not participate. Were meds taken: Yes Any med S/E: Denies Mental Status Exam Appearance: Casual in home clothes, wearing suit jacket. Eye contact: Fair Behavior: Uncooperative in AM, became more cooperative in afternoon. Pacing halls listening to headphones, attending group but not participating. Speech: WNL Mood: Irritable becoming more euthymic in the afternoon. Affect: Congruent with affect. Thought process: Linear Thought Content: Circumstantial. Cognition: A&Ox3 (not to circumstance) Insight: Poor Judgment: Poor Interventions PRN's used: None Therapeutic interventions: 1:1 assessment, therapeutic conversation, active listening, medication administration/education/monitoring, encouragement to take medications as ordered, behavior monitoring and intervention as needed; reality orientation, limit setting, distraction, redirection, provided encouragement and positive reinforcement, Q 15 minute safety checks. Restraints/seclusion/emergency medication: N/A Justification of Continued Inpatient Treatment: Per DIOGENES Mascorro. Pt is at baseline. Patient requires a safe and therapeutic milieu while waiting placement. Patient is LPS
[2021-01-13] MEDS: NICOTINE POLACRILEX 2 MG LOZENGE BC PRN (18:18)
[2021-01-13 20:00] VITALS: BP 140/93
[2021-01-13] MEDS: quetiapine 100mg tablet PO SCH (20:35)
--- NOTE | 2021-01-14 01:57 | NUR ---
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 Pt Public Guardian is Thuy Frost phone number #[phone]. Pt was at [place], and was becoming paranoid about his finances. It was found that $200 of his PNI money was unaccounted for and this escalated the patient. Pt began having outbursts of anger and became increasingly paranoid and delusional towards staff and peers. Assessment What has happened this shift: Patient isolating in his room following shift change. 1:1 Interview in room: Patient tells this underwriter solicitation director that his day has been "pretty shitty, women, they have been in control for far too long now! They probably think I'm a homosexual, but I'm not." Patient denies S/I, H/I, he denies hallucinations. Patient states he is awakening early, "it's really rough." Patients affect is flat, he presents with some depression. Patient is cooperative and medication compliant. S/I, H/I: Denies A/VH: Denies Sleep: Will tally at 0500 hours ADL's: Independent Group attendance: No group on freight handler Were meds taken: Yes, patient is medication compliant Any med S/E: None noted or observed Mental Status Exam Appearance: Wearing street clothes and a suit jacket Eye contact: Fair Behavior: Cooperative, quiet, isolative Speech: Soft, normal rate and rhythm Mood: Euthymic Affect: Congruent with mood Thought process: Linear Thought Content: Circumstantial. Cognition: Oriented to person, place, time, not to situation Insight: Poor Judgment: Poor Interventions PRN's used: None Therapeutic interventions: 1:1 assessment, therapeutic conversation, active listening, medication administration/education/monitoring, encouragement to take medications as ordered, behavior monitoring and intervention as needed; reality orientation, limit setting, distraction, redirection, provided encouragement and positive reinforcement, Q 15 minute safety checks. Restraints/seclusion/emergency medication: N/A Justification of Continued Inpatient Treatment: Per DIOGENES Mascorro. Pt is at baseline. Patient requires a safe and therapeutic milieu while waiting placement. Patient is LPS
[2021-01-14] MEDS: atorvastatin 10mg tablet PO SCH (07:41)
[2021-01-14] MEDS: pantoprazole 40mg Tablet.DR PO SCH (07:41)
[2021-01-14] MEDS: LORazepam 0.5 MG tablet PO SCH ×3 (07:41→17:41)
[2021-01-14] MEDS: trihexyphenidyl HCL 5 MG tablet PO SCH ×3 (07:41→20:32)
[2021-01-14] MEDS: lithium carbonate 300mg SR tablet (LithoBID) PO SCH ×2 (07:41→20:32)
[2021-01-14] MEDS: haloperidol 5mg tablet PO SCH ×5 (07:42→20:31)
[2021-01-14 07:53] VITALS: BP 106/70
[2021-01-14] MEDS: NICOTINE POLACRILEX 2 MG LOZENGE BC PRN ×4 (07:54→20:50)
--- NOTE | 2021-01-14 17:52 | NUR ---
Nursing Progress Note Legal hold: LPS Client on involuntary status for GD Report received from Veronica Jones RN with use of SBAR Why are they here: Patient is LPS conserved and has a hx of schizoaffective disorder and PICA. Pt Public Guardian is Thuy Frost phone number #[phone]. Pt was at [place], and was becoming paranoid about his finances. It was found that $200 of his PNI money was unaccounted for and this escalated the patient. Pt began having outbursts of anger and became increasingly paranoid and delusional towards staff and peers. Assessment What has happened this shift: Pt. awake at start of shift and listening to headphones. Pt. took all medications and ate all meals in the community room. Pt. observed making his bed, when complimented on this pt. states, If I was at home I would make my bed too. Pt. allowed 1:1 and physical assessments. Pt. states he feels good today but then says, well, Im envious because some pt.s say that my seat in the lunch room is reserved for somebody else. But thats not allowed. Pt. reports he is happy with his new roommate and is sleeping well. Pt. states, I needed a good nights sleep. S/I, H/I: Denies A/VH: Denies Sleep: Pt. did not appear to nap today. ADL's: Independent Group attendance: Yes but did not participate. Were meds taken: Yes Any med S/E: Denies Mental Status Exam Appearance: Casual in home clothes, wearing suit jacket. Eye contact: Fair Behavior: Cooperative, calm, pacing halls and sitting in room in his chair listening to his headphones. Speech: WNL Mood: Euthymic Affect: Flat Thought process: Linear Thought Content: Circumstantial Cognition: A&Ox3 (not to circumstance) Insight: Poor Judgment: Poor Interventions PRN's used: None Therapeutic interventions: 1:1 assessment, therapeutic conversation, active listening, medication administration/education/monitoring, encouragement to take medications as ordered, behavior monitoring and intervention as needed; reality orientation, limit setting, distraction, redirection, provided encouragement and positive reinforcement, Q 15 minute safety checks. Restraints/seclusion/emergency medication: N/A Justification of Continued Inpatient Treatment: Per DIOGENES Mascorro. Pt is at baseline. Patient requires a safe and therapeutic milieu while waiting placement. Patient is LPS
[2021-01-14 19:00] VITALS: BP 130/80
[2021-01-14] MEDS: quetiapine 100mg tablet PO SCH (20:32)
[2021-01-15] MEDS: QUEtiapine 25mg tablet PO PRN (01:02)
--- NOTE | 2021-01-15 01:24 | NUR ---
Patient awoke, requesting Seroquel for sleep. This was administered. Patient returned to bed.
--- NOTE | 2021-01-15 01:25 | NUR ---
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 Pt Public Guardian is Thuy Frost phone number #[phone]. Pt was at [place], and was becoming paranoid about his finances. It was found that $200 of his PNI money was unaccounted for and this escalated the patient. Pt began having outbursts of anger and became increasingly paranoid and delusional towards staff and peers. Assessment What has happened this shift: Patient isolating in his room following shift change. 1:1 Interview in room: Patient is fairly linear tonight. He tells this promotion writer that he enjoyed this afternoon, getting to sit in the sun on the patio, drinking coffee too. He denies any hallucinations. He listens to music on his headphones. He is observed ambulating the unit at times, he socializes with his peers. Patient awoke and requested Seroquel as a sleep aid. This was given. (See previous nursing note.) Patient is cooperative with staff and medication compliant. S/I, H/I: Denies A/VH: Denies Sleep: Will tally at 0500 hours ADL's: Independent Group attendance: No group on night manager Were meds taken: Yes, patient is medication compliant Any med S/E: None noted or observed Mental Status Exam Appearance: Well groomed, wearing scrubs. Eye contact: Fair Behavior: Cooperative, quiet, isolative Speech: Soft, normal rate and rhythm Mood: Euthymic Affect: Congruent with mood Thought process: Linear Thought Content: Circumstantial. Cognition: Oriented to person, place, time, somewhat to situation Insight: Poor Judgment: Poor Interventions PRN's used: None Therapeutic interventions: 1:1 assessment, therapeutic conversation, active listening, medication administration/education/monitoring, encouragement to take medications as ordered, behavior monitoring and intervention as needed; reality orientation, limit setting, distraction, redirection, provided encouragement and positive reinforcement, Q 15 minute safety checks. Restraints/seclusion/emergency medication: N/A Justification of Continued Inpatient Treatment: Per DIOGENES Mascorro. Pt is at baseline. Patient requires a safe and therapeutic milieu while waiting placement. Patient is LPS
[2021-01-15 07:54] VITALS: BP 98/61
[2021-01-15] MEDS: LORazepam 0.5 MG tablet PO SCH ×3 (09:05→17:55)
[2021-01-15] MEDS: pantoprazole 40mg Tablet.DR PO SCH (09:05)
[2021-01-15] MEDS: haloperidol 5mg tablet PO SCH ×4 (09:05→20:04)
[2021-01-15] MEDS: trihexyphenidyl HCL 5 MG tablet PO SCH ×3 (09:05→20:04)
[2021-01-15] MEDS: atorvastatin 10mg tablet PO SCH (09:06)
[2021-01-15] MEDS: NICOTINE POLACRILEX 2 MG LOZENGE BC PRN ×3 (09:06→18:17)
[2021-01-15] MEDS: lithium carbonate 300mg SR tablet (LithoBID) PO SCH ×2 (09:06→20:05)
--- NOTE | 2021-01-15 09:31 | NUR ---
Reassessment: Pt PO 75-100% avg regular diet meeting needs. LBM 01/12. No nutrition concerns at this time. Will continue to monitor. Recommend: 1. Continue regular diet 2. Bowel care as needed 3. Weekly weights Addendum: 01/15/21 at [address] Amended: Links added.
--- NOTE | 2021-01-15 16:48 | NUR ---
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 Pts Public Guardian is Thuy Frost phone number #[phone]. Pt was at [place], and was becoming paranoid about his finances. It was found that $200 of his PNI money was unaccounted for and this escalated the patient. Pt began having outbursts of anger and became increasingly paranoid and delusional towards staff and peers. Assessment What has happened this shift: Received pt. sleeping in bed at the beginning of the shift, he was awoken by staff to attend breakfast in the Group Room and afterwards proceeded to retreat to his room and listen to headphones. 1:1 completed at bedside, pt. presents as cooperative, restless, anxious, irritable at times, and impulsive. He denies any S/I or H/I, however admits to ongoing A/GATES sometimes. When questioned by this handbook writer regarding the content of these hallucinations, pt. stated pleasantly, "He talks to me and tells me things." Pt. then went on in a tangental delusional manner to talk about a spider that he believes is living in his head. He states, "It was really bad when it went to my heart, but I think I ate it." Later, in the early afternoon, pt. had a agitated verbal outburst directed towards another peer and had to be redirected by staff. He remained slightly agitated, making intermittent negative remarks directed towards staff members, scheduled Ativan administered with effectiveness and endorsed to DIOGENES Bruce. S/I, H/I: Denies A/VH: Pt. reports some ongoing A/GATES and appears distracted at times Sleep: Sleep hours are 7.75 ADL's: Pt. requires some direction Group attendance: N/A Were meds taken: Yes Any med S/E: None Mental Status Exam Appearance: Neat and appropriately dressed Eye contact: Good, intense at times Behavior: Cooperative, restless, anxious, irritable at times, and impulsive Speech:WNL with occasional angry outbursts Mood: Mostly pleasantly delusional Affect: Animated Thought process: Tangental, but is able to be redirected Thought Content: A/GATES and paranoid delusions Cognition: A&O X3 Insight: Poor Judgment: Poor Interventions PRN's used: Nicotine Lozenge Therapeutic interventions: Maintained a safe and therapeutic environment, ensured contract for safety, provided clear and simple instructions, attempted to orient to reality, monitored behaviors and need for intervention, provided positive encouragement, and maintained Q 15min safety checks. Restraints/seclusion/emergency medication: N/A Justification of Continued Inpatient Treatment: Per DIOGENES Bruce, pt. requires a safe and supportive environment while awaiting to discharge to an [facility].
[2021-01-15] MEDS: LORazepam 1 MG tablet PO PRN (19:15)
--- NOTE | 2021-01-15 19:31 | NUR ---
Patient was irritable and yelling in his room, he states another patient upset him. Patient given Ativan 1 mg po. Calming measures used. Patient is cooperative.
[2021-01-15] MEDS: quetiapine 100mg tablet PO SCH (20:04)
[2021-01-15 20:26] VITALS: BP 111/77
--- NOTE | 2021-01-16 04:51 | NUR ---
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 Pt Public Guardian is Thuy Frost phone number #[phone]. Pt was at [place], and was becoming paranoid about his finances. It was found that $200 of his PNI money was unaccounted for and this escalated the patient. Pt began having outbursts of anger and became increasingly paranoid and delusional towards staff and peers. Assessment What has happened this shift: Patient isolating in his room following shift change. Patient is observed yelling loudly on multiple occasions. He is observed on one occasion responding to internal stimuli. Patient later was out of his room for snacks, listening to music, he socializes with peers S/I, H/I: Denies A/VH: Denies Sleep: Will tally at 0500 hours ADL's: Independent Group attendance: No group on gardening manager Were meds taken: Yes, patient is medication compliant Any med S/E: None noted or observed Mental Status Exam Appearance: Well groomed, clean Eye contact: Fair Behavior: Cooperative, labile at times Speech: WNL, loud at times Mood: Euthymic Affect: Congruent with mood Thought process: Linear Thought Content: Circumstantial. Cognition: Oriented to person, place, delusional at times Insight: Poor Judgment: Poor Interventions PRN's used: None Therapeutic interventions: 1:1 assessment, therapeutic conversation, active listening, medication administration/education/monitoring, encouragement to take medications as ordered, behavior monitoring and intervention as needed; reality orientation, limit setting, distraction, redirection, provided encouragement and positive reinforcement, Q 15 minute safety checks. Restraints/seclusion/emergency medication: N/A Justification of Continued Inpatient Treatment: Per DIOGENES Mascorro. Pt is at baseline. Patient requires a safe and therapeutic milieu while waiting placement. Patient is LPS
[2021-01-16] MEDS: NICOTINE POLACRILEX 2 MG LOZENGE BC PRN ×3 (05:32→16:06)
[2021-01-16] MEDS: acetaminophen 325mg tablet PO PRN ×2 (06:38→20:32)
[2021-01-16] MEDS: haloperidol 5mg tablet PO SCH ×4 (07:37→20:29)
[2021-01-16] MEDS: LORazepam 0.5 MG tablet PO SCH ×3 (07:37→17:38)
[2021-01-16] MEDS: lithium carbonate 300mg SR tablet (LithoBID) PO SCH ×2 (07:37→20:28)
[2021-01-16] MEDS: pantoprazole 40mg Tablet.DR PO SCH (07:37)
[2021-01-16] MEDS: trihexyphenidyl HCL 5 MG tablet PO SCH ×3 (07:37→20:29)
[2021-01-16] MEDS: atorvastatin 10mg tablet PO SCH (07:38)
[2021-01-16 07:49] VITALS: BP 102/70
--- NOTE | 2021-01-16 17:16 | NUR ---
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 Pt Public Guardian is Thuy Frost phone number #[phone]. Pt was at [place], and was becoming paranoid about his finances. It was found that $200 of his PNI money was unaccounted for and this escalated the patient. Pt began having outbursts of anger and became increasingly paranoid and delusional towards staff and peers. Assessment What has happened this shift: Pt. awake at start of shift and listening to headphones. Pt. took all medications and ate all meals in the community room. 1:1 done at bedside. Pt. talked at length of a vacation he took as a child when he went to [place] with his parents and grandma. Pt. states, "I would like to go to [place] now". Pt. reports feeling anxious about where he will be transfered to. Pt. denies SI/HI, A/V halluciantions. Pt. observed conversing with peers and staff, pacing halls and listening to headphones. S/I, H/I: Denies A/VH: Denies Sleep: Pt. did not appear to nap today. ADL's: Independent Group attendance: Yes Were meds taken: Yes Any med S/E: Denies Mental Status Exam Appearance: Casual in home clothes, wearing suit jacket. Eye contact: Fair Behavior: Cooperative, calm, pacing halls and sitting in room in his chair listening to his headphones. Conversing with peers and staff. Speech: WNL Mood: Euthymic Affect: Flat Thought process: Linear Thought Content: Circumstantial Cognition: A&Ox3 (not to circumstance) Insight: Poor Judgment: Poor Interventions PRN's used: None Therapeutic interventions: 1:1 assessment, therapeutic conversation, active listening, medication administration/education/monitoring, encouragement to take medications as ordered, behavior monitoring and intervention as needed; reality orientation, limit setting, distraction, redirection, provided encouragement and positive reinforcement, Q 15 minute safety checks. Restraints/seclusion/emergency medication: N/A Justification of Continued Inpatient Treatment: Per DIOGENES Mascorro. Pt is at baseline. Patient requires a safe and therapeutic milieu while waiting placement. Patient is LPS conserved
[2021-01-16 20:00] VITALS: BP 106/70
[2021-01-16] MEDS: quetiapine 100mg tablet PO SCH (20:28)
--- NOTE | 2021-01-16 23:09 | NUR ---
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 Pt Public Guardian is Thuy Frost phone number #[phone]. Pt was at [place], and was becoming paranoid about his finances. It was found that $200 of his PNI money was unaccounted for and this escalated the patient. Pt began having outbursts of anger and became increasingly paranoid and delusional towards staff and peers. Assessment What has happened this shift: Pt was listening to headphones at change of shift in the group room. He spent time sitting in the group room and his bedroom throughout the evening. Pt is in a pleasant mood and states he feels good and denies depression. Pt c/o pain in his hip and requested prn tylenol before going to bed. S/I, H/I: Denies A/VH: Denies Sleep: see sleep hours ADL's: Independent Group attendance: Yes Were meds taken: Yes Any med S/E: Denies Mental Status Exam Appearance: Casual in home clothes, wearing suit jacket. Eye contact: Fair Behavior: Cooperative, calm, pacing halls and sitting in room in his chair listening to his headphones. Conversing with peers and staff. Speech: WNL Mood: Euthymic Affect: Flat Thought process: Linear Thought Content: Circumstantial Cognition: A&Ox3 (not to circumstance) Insight: Poor Judgment: Poor Interventions PRN's used: None Therapeutic interventions: 1:1 assessment, therapeutic conversation, active listening, medication administration/education/monitoring, encouragement to take medications as ordered, behavior monitoring and intervention as needed; reality orientation, limit setting, distraction, redirection, provided encouragement and positive reinforcement, Q 15 minute safety checks. Restraints/seclusion/emergency medication: N/A Justification of Continued Inpatient Treatment: Per DIOGENES Mascorro. Pt is at baseline. Patient requires a safe and therapeutic milieu while waiting placement. Patient is LPS conserved
[2021-01-17] MEDS: LORazepam 0.5 MG tablet PO SCH ×3 (07:14→17:11)
[2021-01-17] MEDS: pantoprazole 40mg Tablet.DR PO SCH (07:15)
[2021-01-17] MEDS: atorvastatin 10mg tablet PO SCH (07:15)
[2021-01-17] MEDS: NICOTINE POLACRILEX 2 MG LOZENGE BC PRN (07:15)
[2021-01-17] MEDS: acetaminophen 325mg tablet PO PRN ×2 (07:15→20:24)
[2021-01-17] MEDS: haloperidol 5mg tablet PO SCH ×4 (07:16→20:17)
[2021-01-17] MEDS: lithium carbonate 300mg SR tablet (LithoBID) PO SCH ×2 (07:16→20:17)
[2021-01-17] MEDS: trihexyphenidyl HCL 5 MG tablet PO SCH ×3 (07:20→20:17)
[2021-01-17 07:45] VITALS: BP 113/75
[2021-01-17] MEDS ORDERED: FLU VACC QS2020-21(6MOS UP)/PF 60 MCG/0.5 ML SYRINGE IMVAC ONE (10:00)
[2021-01-17] MEDS: LORazepam 1 MG tablet PO PRN (10:02)
--- NOTE | 2021-01-17 16:25 | NUR ---
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 Pt Public Guardian is Thuy Frost phone number #[phone]. Pt was at [place], and was becoming paranoid about his finances. It was found that $200 of his PNI money was unaccounted for and this escalated the patient. Pt began having outbursts of anger and became increasingly paranoid and delusional towards staff and peers. Assessment What has happened this shift: Hardik was awake with most of the patients early this morning, patient is seen sitting in the day room watching tv. 0955 patient went to the nurses station and shouted "what makes you so high and mighty", patient then stormed off, this was unprovoked. 1000 This selling underwriter over heard a staff member asking Hardik to not run in the phillips and to give back the batteries that he just took out of the head set, patient quickly went to his room and flushed the batteries down the toilet, patient went on to say that he wanted to call his mom. Patient was allowed to use the phone but needed to stay by the nurses station in fear that he was going to flush the telephone. Patient continued to be agitated, a prn was offered and accepted. 1130 this selling underwriter sat in patient room and visited about favorite foods, patient engaged in the conversation and was happy to have someone different to talk to. Patient has had very little change in his mental illness in the [ast few days, for no reason at all patient mood liable explodes. S/I, H/I: Denies A/VH: Denies Sleep: Per NOC 8.0 ADL's: Independent Group attendance: Yes Were meds taken: Yes Any med S/E: Denies Mental Status Exam Appearance: Casual in home clothes, wearing suit jacket. Eye contact: Fair Behavior: Cooperative, calm, pacing halls and sitting in room in his chair listening to his headphones. Conversing with peers and staff. Speech: WNL Mood: Euthymic Affect: Flat Thought process: Linear Thought Content: Circumstantial Cognition: A&Ox3 not to situation Insight: Poor Judgment: Poor Interventions PRN's used: Ativan po Therapeutic interventions: 1:1 assessment, therapeutic conversation, active listening, medication administration/education/monitoring, encouragement to take medications as ordered, behavior monitoring and intervention as needed; reality orientation, limit setting, distraction, redirection, provided encouragement and positive reinforcement, Q 15 minute safety checks. Restraints/seclusion/emergency medication: N/A Justification of Continued Inpatient Treatment: Patient requires a safe and therapeutic milieu while waiting placement. Patient is LPS conserved
[2021-01-17 19:50] VITALS: BP 116/69
[2021-01-17] MEDS: quetiapine 100mg tablet PO SCH (20:17)
--- NOTE | 2021-01-17 22:44 | NUR ---
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 Pt Public Guardian is Thuy Frost phone number #[phone]. Pt was at [place], and was becoming paranoid about his finances. It was found that $200 of his PNI money was unaccounted for and this escalated the patient. Pt began having outbursts of anger and became increasingly paranoid and delusional towards staff and peers. Assessment What has happened this shift: Pt was in bed sleeping at change of shift, he woke for med pass and returned to bed. Pt c/o hip pain and requested prn tylenol with evening meds. Pt reports his day was "ok" and reports no other needs and went back to sleep. S/I, H/I: Denies A/VH: Denies Sleep: see sleep hours ADL's: Independent Group attendance: Yes Were meds taken: Yes Any med S/E: Denies Mental Status Exam Appearance: Casual in home clothes, wearing suit jacket. Eye contact: Fair Behavior: sleeping Speech: WNL Mood: Euthymic Affect: Flat Thought process: Linear Thought Content: Circumstantial Cognition: A&Ox3 not to situation Insight: Poor Judgment: Poor Interventions PRN's used: tylenol Therapeutic interventions: 1:1 assessment, therapeutic conversation, active listening, medication administration/education/monitoring, encouragement to take medications as ordered, behavior monitoring and intervention as needed; reality orientation, limit setting, distraction, redirection, provided encouragement and positive reinforcement, Q 15 minute safety checks. Restraints/seclusion/emergency medication: N/A Justification of Continued Inpatient Treatment: Patient requires a safe and therapeutic milieu while waiting placement. Patient is LPS conserved
[2021-01-18] MEDS: NICOTINE POLACRILEX 2 MG LOZENGE BC PRN ×3 (05:07→18:40)
[2021-01-18 08:02] VITALS: BP 113/80
[2021-01-18] MEDS: pantoprazole 40mg Tablet.DR PO SCH (08:57)
[2021-01-18] MEDS: atorvastatin 10mg tablet PO SCH (08:58)
[2021-01-18] MEDS: haloperidol 5mg tablet PO SCH ×4 (08:58→20:27)
[2021-01-18] MEDS: lithium carbonate 300mg SR tablet (LithoBID) PO SCH (08:58)
[2021-01-18] MEDS: LORazepam 0.5 MG tablet PO SCH ×3 (09:01→17:24)
[2021-01-18] MEDS: trihexyphenidyl HCL 5 MG tablet PO SCH ×3 (09:07→20:26)
--- NOTE | 2021-01-18 14:14 | NUR ---
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 Pt Public Guardian is Thuy Frost phone number #[phone]. Pt was at [place], and was becoming paranoid about his finances. It was found that $200 of his PNI money was unaccounted for and this escalated the patient. Pt began having outbursts of anger and became increasingly paranoid and delusional towards staff and peers. Assessment What has happened this shift: Today patient had a better day than yesterday, although patient was not happy to be the last patient this quality analyst/technical writer gave medication to this morning. Patient did not require redirection or a prn. 1100 Patient spoke with staff nurse, told a story on how he use to get high drinking antifreeze "I got so fuc*ing high", "well I don't do that any more but I just wanted you to know that I did that before, and when I passed out mu pet rat chewed on my scalp (patient point to an area on his head that has a small scar), My rat was going to eat me when I but I did not ". 1330 This quality analyst/technical writer sat in patient room to "visit" with patient, when asked about where he was planning on going when he leaves this facility, patient stated that he is going to [place] with provider Kamaljit Baum, they will be staying there for 4 years. Patient continues to be bizarre and unrealistic. S/I, H/I: Denies A/VH: Denies Sleep: Per NOC 8.75 ADL's: Independent Group attendance: Yes Were meds taken: Yes Any med S/E: Denies Mental Status Exam Appearance: Casual in home clothes, wearing suit jacket. Wore green scrubs while doing his laundry Eye contact: Fair Behavior: Cooperative, calm, pacing halls and sitting in room in his chair listening to his headphones. Conversing with peers and staff. Speech: WNL Mood: Euthymic Affect: Flat Thought process: Linear Thought Content: Circumstantial Cognition: A&Ox3 not to situation Insight: Poor Judgment: Poor Interventions PRN's used: none today Therapeutic interventions: 1:1 assessment, therapeutic conversation, active listening, medication administration/education/monitoring, encouragement to take medications as ordered, behavior monitoring and intervention as needed; reality orientation, limit setting, distraction, redirection, provided encouragement and positive reinforcement, Q 15 minute safety checks. Restraints/seclusion/emergency medication: N/A Justification of Continued Inpatient Treatment: Patient requires a safe and therapeutic milieu while waiting placement. Patient is LPS conserved
--- NOTE | 2021-01-18 15:23 | NUR ---
PLACEMENT Sent updated notes to [facility] office at their request for placement purposes. LEXIE Squires
[2021-01-18 19:29] VITALS: BP 128/84
[2021-01-18] MEDS: quetiapine 100mg tablet PO SCH (20:27)
[2021-01-18] MEDS: acetaminophen 325mg tablet PO PRN (20:27)
[2021-01-18] MEDS: divalproex 250mg tablet, delayed-release PO SCH (21:07)
--- NOTE | 2021-01-18 22:21 | NUR ---
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 Pt Public Guardian is Thuy Frost phone number #[phone]. Pt was at [place], and was becoming paranoid about his finances. It was found that $200 of his PNI money was unaccounted for and this escalated the patient. Pt began having outbursts of anger and became increasingly paranoid and delusional towards staff and peers. Assessment What has happened this shift: Pt was in the group room watching tv at change of shift and requested prn nicotine. He is in a pleasant mood talking about wearing his hat backwards. After snack time he spent time listening to music. Pt started depakote tonight and explained to pt I was waiting for the pharmacy to bring up the med. Pt replied "I'll have to take a placebo, is Dr Bowman trying to play a fast one on me?" Pt insists he can only take a placebo and perseverates for some time about only taking a "placebo". Pt then stated to charge nurse "Remember Polina, it makes my penis wet and sticky?" Pt took meds when received from pharmacy. S/I, H/I: Denies A/VH: Denies Sleep: see sleep hours ADL's: Independent Group attendance: Yes Were meds taken: Yes Any med S/E: Denies Mental Status Exam Appearance: Casual in home clothes, wearing suit jacket. Eye contact: Fair Behavior: Cooperative, calm, pacing halls and sitting in room in his chair listening to his headphones. Conversing with peers and staff. Speech: WNL Mood: Euthymic Affect: Flat Thought process: Linear Thought Content: Circumstantial Cognition: A&Ox3 not to situation Insight: Poor Judgment: Poor Interventions PRN's used: tylenol Therapeutic interventions: 1:1 assessment, therapeutic conversation, active listening, medication administration/education/monitoring, encouragement to take medications as ordered, behavior monitoring and intervention as needed; reality orientation, limit setting, distraction, redirection, provided encouragement and positive reinforcement, Q 15 minute safety checks. Restraints/seclusion/emergency medication: N/A Justification of Continued Inpatient Treatment: Patient requires a safe and therapeutic milieu while waiting placement. Patient is LPS conserved
[2021-01-19] MEDS: trihexyphenidyl HCL 5 MG tablet PO SCH ×3 (07:50→20:28)
[2021-01-19] MEDS: LORazepam 0.5 MG tablet PO SCH ×3 (07:50→17:13)
[2021-01-19] MEDS: atorvastatin 10mg tablet PO SCH (07:50)
[2021-01-19] MEDS: pantoprazole 40mg Tablet.DR PO SCH (07:50)
[2021-01-19] MEDS: haloperidol 5mg tablet PO SCH ×4 (07:51→20:28)
[2021-01-19 08:25] VITALS: BP 114/69
[2021-01-19] MEDS: NICOTINE POLACRILEX 2 MG LOZENGE BC PRN ×2 (09:42→16:15)
--- NOTE | 2021-01-19 17:50 | NUR ---
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 Pt Public Guardian is Thuy Frost phone number #[phone]. Pt was at [place], and was becoming paranoid about his finances. It was found that $200 of his PNI money was unaccounted for and this escalated the patient. Pt began having outbursts of anger and became increasingly paranoid and delusional towards staff and peers. Assessment What has happened this shift: Patient was up at change of shift pacing the halls. Patient was relatively okay this morning. Patient ate breakfast and sat in the T.V. room or in his own room. Patient had increased agitation as the day wore on. Patient started yelling at staff. Patient talking loud and was a little bizarre. Patient asked for his evening meds at 1600. RN advised patient that it was too early to give him the medication. Patient was at the nurses station around 1730 and RN advised patient that he could have his medication. Patient got really loud and upset because "you took away my Singer and decided to give me Depakote!" RN advised patient that that was the doctor's order. "OH! Passing the blackmon are we?!" Patient got angry and went to his room. RN went to patient's room and attempted to give patient his medication. Patient took the Haldol and left the Ativan in the cup and told RN he would not take it. Patient was loud and rude. Patient continues to be bizarre and unrealistic. S/I, H/I: Denies A/VH: Denies Sleep: Short nap ADL's: Independent Group attendance: Yes Were meds taken: Yes Any med S/E: Denies Mental Status Exam Appearance: Casual in home clothes, wearing suit jacket. Hair messy with and without hat Eye contact: Fair Behavior: Cooperative, calm, pacing halls and sitting in room in his chair listening to his headphones. Conversing with peers. Labile yelling at staff on and off throughout the day Speech: WNL Mood: labile Affect: angry Thought process: Delusional Thought Content: Circumstantial Cognition: A&Ox3 not to situation Insight: Poor Judgment: Poor Interventions PRN's used: none today Therapeutic interventions: 1:1 assessment, therapeutic conversation, active listening, medication administration/education/monitoring, encouragement to take medications as ordered, behavior monitoring and intervention as needed; reality orientation, limit setting, distraction, redirection, provided encouragement and positive reinforcement, Q 15 minute safety checks. Restraints/seclusion/emergency medication: N/A Justification of Continued Inpatient Treatment: Patient requires a safe and therapeutic milieu while waiting placement. Patient is LPS conserved
--- NOTE | 2021-01-19 18:14 | NUR ---
Patient threatened an older gentlemen thinking he was harassing him. Patient yelling down the phillips and then to his room.
[2021-01-19 19:00] VITALS: BP 123/75
[2021-01-19] MEDS: quetiapine 100mg tablet PO SCH (20:28)
[2021-01-19] MEDS: divalproex 250mg tablet, delayed-release PO SCH (20:28)
--- NOTE | 2021-01-20 01:39 | NUR ---
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 Pt Public Guardian is Thuy Frost phone number #[phone]. Pt was at [place], and was becoming paranoid about his finances. It was found that $200 of his PNI money was unaccounted for and this escalated the patient. Pt began having outbursts of anger and became increasingly paranoid and delusional towards staff and peers. Assessment What has happened this shift: The patient isolated to his room. He did come out of his room briefly to get snack and was observed in the hallway looking straight ahead with an angry look on his face. When he was walking down the hallway to get snack he had an angry expression and made a remark about paying 500$ for taxes which was out of the blue. During the evening assessment he was polite but his replies were very minimal and short. When asked if he had side effects to medications he stated, "Nothing that I want to talk about" He denied that he was having mental health symptoms although he was clearly agitated by internal stimuli. He is waiting to be placed by the public guardians office. He took his medications and knows exactly what he is taking. He did not have any aggressive behaviors toward others. He is attending to his ADLs. Insight and judgement are poor.
[2021-01-20] MEDS: quetiapine 100mg tablet PO SCH ×2 (02:52→20:15)
[2021-01-20] MEDS ORDERED: quetiapine 100mg tablet PO ONE (03:00)
[2021-01-20] MEDS: pantoprazole 40mg Tablet.DR PO SCH (07:42)
[2021-01-20] MEDS: haloperidol 5mg tablet PO SCH ×4 (07:43→20:15)
[2021-01-20] MEDS: trihexyphenidyl HCL 5 MG tablet PO SCH ×3 (07:44→20:15)
[2021-01-20] MEDS: LORazepam 0.5 MG tablet PO SCH ×3 (07:44→17:36)
[2021-01-20] MEDS: atorvastatin 10mg tablet PO SCH (07:44)
[2021-01-20 08:33] VITALS: BP 104/68
[2021-01-20] MEDS: acetaminophen 325mg tablet PO PRN (08:38)
[2021-01-20] MEDS: NICOTINE POLACRILEX 2 MG LOZENGE BC PRN ×2 (11:37→18:35)
--- NOTE | 2021-01-20 17:59 | NUR ---
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 Pt Public Guardian is Thuy Frost phone number #[phone]. Pt was at [place], and was becoming paranoid about his finances. It was found that $200 of his PNI money was unaccounted for and this escalated the patient. Pt began having outbursts of anger and became increasingly paranoid and delusional towards staff and peers. Assessment What has happened this shift: Patient was asleep at change of shift and up before breakfast. Patient appeared to be back to his old self today. No outbursts. Patient smiling and joking with staff. Patient neatly dressed but his hair is a little greasy. Patient is social and sitting with peers in the Rec Room and the Community Room. Patient will sometimes sit in his room in the chair and look out the window. Patient denies suicidal/homicidal ideation. Patient denies audio/visual hallucinations. Patient took his medications as prescribed. Good day for Hardik. S/I, H/I: Denies A/VH: Denies Sleep: No naps ADL's: Independent Group attendance: No groups today Were meds taken: Yes Any med S/E: Denies Mental Status Exam Appearance: Casual in home clothes, wearing suit jacket. Hair greasy with and without hat Eye contact: Fair Behavior: Cooperative, calm, pacing halls and sitting in room in his chair listening to his headphones. Conversing with peers and staff Speech: WNL Mood: Euthymic Affect: Pleasant Thought process: Pleasantly delusional Thought Content: Circumstantial Cognition: A&Ox3 not to situation Insight: Poor Judgment: Poor Interventions PRN's used: none today Therapeutic interventions: 1:1 assessment, therapeutic conversation, active listening, medication administration/education/monitoring, encouragement to take medications as ordered, behavior monitoring and intervention as needed; reality orientation, limit setting, distraction, redirection, provided encouragement and positive reinforcement, Q 15 minute safety checks. Restraints/seclusion/emergency medication: N/A Justification of Continued Inpatient Treatment: Patient requires a safe and therapeutic milieu while waiting placement. Patient is LPS conserved
[2021-01-20 19:27] VITALS: BP 112/63
[2021-01-20] MEDS: divalproex 250mg tablet, delayed-release PO SCH (20:14)
--- NOTE | 2021-01-20 22:55 | NUR ---
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 Pt Public Guardian is Thuy Frost phone number #[phone]. Pt was at [place], and was becoming paranoid about his finances. It was found that $200 of his PNI money was unaccounted for and this escalated the patient. Pt began having outbursts of anger and became increasingly paranoid and delusional towards staff and peers. Assessment What has happened this shift: Patient ambulates halls and watches television in the community room. He tells this chief writer he is fee S/I, H/I: Denies A/VH: Denies Sleep: Will tally at 0500 hours ADL's: Independent Group attendance: No group on home maker Were meds taken: Yes, patient is medication compliant Any med S/E: None noted or observed Mental Status Exam Appearance: Well groomed, clean Eye contact: Fair Behavior: Cooperative, labile at times Speech: WNL, loud at times Mood: Euthymic Affect: Congruent with mood Thought process: Linear Thought Content: Circumstantial. Cognition: Oriented to person, place, delusional at times Insight: Poor Judgment: Poor Interventions PRN's used: None Therapeutic interventions: 1:1 assessment, therapeutic conversation, active listening, medication administration/education/monitoring, encouragement to take medications as ordered, behavior monitoring and intervention as needed; reality orientation, limit setting, distraction, redirection, provided encouragement and positive reinforcement, Q 15 minute safety checks. Restraints/seclusion/emergency medication: N/A Justification of Continued Inpatient Treatment: Per DIOGENES Mascorro. Pt is at baseline. Patient requires a safe and therapeutic milieu while waiting placement. Patient is LPS Addendum: 01/20/21 at 2305 by Lloyd Ocampo RN Patient tells this chief writer he is feeling good. He denies S/I, H/I, or any hallucinations. He is cooperative with staff. Patient is well groomed.
[2021-01-21] MEDS: LORazepam 1 MG tablet PO PRN (04:59)
[2021-01-21] MEDS: NICOTINE POLACRILEX 2 MG LOZENGE BC PRN ×3 (04:59→19:42)
--- NOTE | 2021-01-21 05:00 | NUR ---
Patient awoke, complains of anxiety, requests Ativan and Nicotine Lozenge. Both were administered.
[2021-01-21 08:00] VITALS: BP 116/75
[2021-01-21] MEDS: trihexyphenidyl HCL 5 MG tablet PO SCH ×3 (08:49→20:10)
[2021-01-21] MEDS: LORazepam 0.5 MG tablet PO SCH ×3 (08:49→17:11)
[2021-01-21] MEDS: atorvastatin 10mg tablet PO SCH (08:50)
[2021-01-21] MEDS: haloperidol 5mg tablet PO SCH ×4 (08:50→20:10)
[2021-01-21] MEDS: pantoprazole 40mg Tablet.DR PO SCH (08:50)
[2021-01-21] MEDS: acetaminophen 325mg tablet PO PRN (08:58)
--- NOTE | 2021-01-21 13:20 | NUR ---
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 Pt Public Guardian is Thuy Frost phone number #[phone]. Pt was at [place], and was becoming paranoid about his finances. It was found that $200 of his PNI money was unaccounted for and this escalated the patient. Pt began having outbursts of anger and became increasingly paranoid and delusional towards staff and peers. Assessment What has happened this shift: Hardik has had very little change in his bx and MSE, patient continues to be liable at times with no obvious triggers. Patient is able to re-direct often times with out PRN's, although this morning patient woke at 0500 per noc and required a prn of Ativan. During assessment this morning patient stated that he had a sore right leg. This caption writer looked at both legs and there were not any signs of injury. It is unclear if patient was just wanting attention or if there was some discomfort. Patient did not complain again. Patient has had a good afternoon, pacing with his street clothes, hat and suit jacket. Causally groomed S/I, H/I: Denies A/VH: Denies Sleep: No naps ADL's: Independent Group attendance: No groups today Were meds taken: Yes Any med S/E: Denies Mental Status Exam Appearance: Casual in home clothes, wearing suit jacket. Hair greasy with and without hat Eye contact: Fair Behavior: Cooperative, calm, pacing halls and sitting in room in his chair listening to his headphones. Conversing with peers and staff Speech: WNL Mood: Euthymic Affect: Pleasant Thought process: Pleasantly delusional Thought Content: Circumstantial Cognition: A&Ox3 not to situation Insight: Poor Judgment: Poor Interventions PRN's used: none today Therapeutic interventions: 1:1 assessment, therapeutic conversation, active listening, medication administration/education/monitoring, encouragement to take medications as ordered, behavior monitoring and intervention as needed; reality orientation, limit setting, distraction, redirection, provided encouragement and positive reinforcement, Q 15 minute safety checks. Restraints/seclusion/emergency medication: N/A Justification of Continued Inpatient Treatment: Patient requires a safe and therapeutic milieu while waiting placement. Patient is LPS conserved
--- NOTE | 2021-01-21 19:43 | NUR ---
Patient approaches nursing station. He demands a Nicotine lozenge 4 mg. Patient claims he had that dose this afternoon. He yells at staff, "you are all hiding things from me, you are not telling me the truth." Patient is offered an Ativan which he declines. Patient returns to his room.
[2021-01-21 20:00] VITALS: BP 110/68
[2021-01-21] MEDS: divalproex 250mg tablet, delayed-release PO SCH (20:10)
[2021-01-21] MEDS: quetiapine 100mg tablet PO SCH (20:10)
--- NOTE | 2021-01-21 20:11 | NUR ---
Patient isolates in room, he remains angry. Patient reluctantly takes evening medications. He expresses anger, "am I really feeling down, I want my Ravia." This music writer explained that his wishes will be passed on to the day nurse to address the request for Ravia with a provider.
--- NOTE | 2021-01-21 20:46 | NUR ---
Patient is yelling while he ambulates down the halls, he exhibits delusional behavior and expresses paranoia that staff is withholding his [place] against his will. Seroquel PRN is being repeated.
--- NOTE | 2021-01-22 03:49 | NUR ---
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 Pt Public Guardian is Thuy Frost phone number #[phone]. Pt was at [place], and was becoming paranoid about his finances. It was found that $200 of his PNI money was unaccounted for and this escalated the patient. Pt began having outbursts of anger and became increasingly paranoid and delusional towards staff and peers. Assessment What has happened this shift: Patient isolates in room and occasionally is ambulating the hallways. Patient exhibits labile behavior. He yells at staff, behavior is paranoid. Patient believes we are withholding his lithium, he also believes his nicotine lozenges to be four mg instead of two. Patient degrades staff, "none of you have been here for me." See previous notes. Patient did take his medications as prescribed. He gradually retired to sleep. S/I, H/I: Denies A/VH: Denies Sleep: Will tally at 0500 hours ADL's: Independent Group attendance: No group on cage shift manager Were meds taken: Yes, patient is medication compliant Any med S/E: None noted or observed Mental Status Exam Appearance: Well groomed, clean Eye contact: Fair Behavior: Labile, anxious, accusatory Speech: Loud, sometimes yelling. Mood: Angry, paranoid Affect: Congruent with mood Thought process: Limited Insight, non linear Thought Content: Circumstantial. Cognition: Oriented to person, place, delusional at times Insight: Poor Judgment: Poor Interventions PRN's used: None Therapeutic interventions: 1:1 assessment, therapeutic conversation, active listening, medication administration/education/monitoring, encouragement to take medications as ordered, behavior monitoring and intervention as needed; reality orientation, limit setting, distraction, redirection, provided encouragement and positive reinforcement, Q 15 minute safety checks. Restraints/seclusion/emergency medication: N/A Justification of Continued Inpatient Treatment: Per DIOGENES Mascorro. Pt is at baseline. Patient requires a safe and therapeutic milieu while waiting placement. Patient is LPS Addendum: 01/20/21 at 2305 by Lloyd Ocampo RN Patient tells this contract technical writer he is feeling good. He denies S/I, H/I, or any hallucinations. He is cooperative with staff. Patient is well groomed.
[2021-01-22] MEDS: acetaminophen 325mg tablet PO PRN (06:23)
[2021-01-22] MEDS: atorvastatin 10mg tablet PO SCH (07:41)
[2021-01-22] MEDS: trihexyphenidyl HCL 5 MG tablet PO SCH ×3 (07:41→20:15)
[2021-01-22] MEDS: LORazepam 0.5 MG tablet PO SCH ×3 (07:41→17:00)
[2021-01-22] MEDS: haloperidol 5mg tablet PO SCH ×4 (07:42→20:16)
[2021-01-22] MEDS: pantoprazole 40mg Tablet.DR PO SCH (07:54)
[2021-01-22 08:06] VITALS: BP 113/74
--- NOTE | 2021-01-22 09:40 | NUR ---
Reassessment: Pt PO 100% avg regular diet meeting needs. LBM 01/21. No nutrition concerns at this time. Will continue to monitor. Recommend: 1. Continue regular diet 2. Bowel care as needed 3. Weekly weights Addendum: 01/22/21 at [address] Amended: Links added.
[2021-01-22] MEDS: NICOTINE POLACRILEX 2 MG LOZENGE BC PRN ×3 (10:38→20:15)
--- NOTE | 2021-01-22 13:56 | NUR ---
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 Pt Public Guardian is Thuy Frost phone number #[phone]. Pt was at [place], and was becoming paranoid about his finances. It was found that $200 of his PNI money was unaccounted for and this escalated the patient. Pt began having outbursts of anger and became increasingly paranoid and delusional towards staff and peers. Assessment What has happened this shift: Hardik has had very little change in his bx and MSE, patient continues to be liable at times with no obvious triggers. Patient is able to re-direct often times with out PRN's, Patient has had a good afternoon, pacing with his street clothes, hat and suit jacket, " I know I am half cocked sometimes so I want to say sorry". Causally groomed. Patient did require Nicotine Doris a few times today. This functional tester typewriters had a linear conversation with Hardik late in the day about his watch. Hardik is a very good conversationalist when he is in the mood. S/I, H/I: Denies A/VH: Denies Sleep: No naps ADL's: Independent Group attendance: No groups today Were meds taken: Yes Any med S/E: Denies Mental Status Exam Appearance: Casual in home clothes, wearing suit jacket. Hair greasy and wearing a mask today Eye contact: Fair Behavior: Cooperative, calm, pacing halls and sitting in room in his chair listening to his headphones. Conversing with peers and staff Speech: WNL Mood: Euthymic Affect: Pleasant Thought process: Pleasantly delusional Thought Content: Circumstantial Cognition: A&Ox3 not to situation Insight: Poor Judgment: Poor Interventions PRN's used: none today Therapeutic interventions: 1:1 assessment, therapeutic conversation, active listening, medication administration/education/monitoring, encouragement to take medications as ordered, behavior monitoring and intervention as needed; reality orientation, limit setting, distraction, redirection, provided encouragement and positive reinforcement, Q 15 minute safety checks. Restraints/seclusion/emergency medication: N/A Justification of Continued Inpatient Treatment: Patient requires a safe and therapeutic milieu while waiting placement. Patient is LPS conserved
[2021-01-22 20:00] VITALS: BP 115/78
[2021-01-22] MEDS: divalproex 250mg tablet, delayed-release PO SCH (20:15)
[2021-01-22] MEDS: quetiapine 100mg tablet PO SCH (20:15)
--- NOTE | 2021-01-23 01:52 | NUR ---
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 Pt Public Guardian is Thuy Frost phone number #[phone]. Pt was at [place], and was becoming paranoid about his finances. It was found that $200 of his PNI money was unaccounted for and this escalated the patient. Pt began having outbursts of anger and became increasingly paranoid and delusional towards staff and peers. Assessment What has happened this shift: Patient is isolative in his room this shift. He is cooperative. He looks somewhat disheveled. Patient denies S/I, H/I, he mentions a visual event where he observed something orange and blue going by very fast, "I think it was a ghost." Patient is cognisant that he was unruly on the previous awake overnight counselor. "It wont happen again, I don't need any medications for it." The patient is compliant with medications. His affect is flat. S/I, H/I: Denies A/VH: Denies Sleep: Will tally at 0500 hours ADL's: Independent Group attendance: No group on awake overnight counselor Were meds taken: Yes, patient is medication compliant Any med S/E: None noted or observed Mental Status Exam Appearance: Somewhat disheveled looking. Eye contact: Fair Behavior: Speech: Loud, sometimes yelling. Mood: Depressed Affect: Congruent with mood Thought process: Limited Insight, non linear Thought Content: Circumstantial. Cognition: Oriented to person, place, delusional at times Insight: Poor Judgment: Poor Interventions PRN's used: None Therapeutic interventions: 1:1 assessment, therapeutic conversation, active listening, medication administration/education/monitoring, encouragement to take medications as ordered, behavior monitoring and intervention as needed; reality orientation, limit setting, distraction, redirection, provided encouragement and positive reinforcement, Q 15 minute safety checks. Restraints/seclusion/emergency medication: N/A Justification of Continued Inpatient Treatment: Per DIOGENES Mascorro. Pt is at baseline. Patient requires a safe and therapeutic milieu while waiting placement. Patient is LPS
[2021-01-23 07:38] VITALS: BP 113/76
--- NOTE | 2021-01-23 07:47 | NUR ---
PLACEMENT UPDATE All placement options have declined client. New updated notes are being sent to all facilities for reconsideration. LEXIE Squires
[2021-01-23] MEDS: trihexyphenidyl HCL 5 MG tablet PO SCH ×3 (08:01→20:16)
[2021-01-23] MEDS: atorvastatin 10mg tablet PO SCH (08:01)
[2021-01-23] MEDS: LORazepam 0.5 MG tablet PO SCH ×3 (08:01→17:42)
[2021-01-23] MEDS: pantoprazole 40mg Tablet.DR PO SCH (08:01)
[2021-01-23] MEDS: haloperidol 5mg tablet PO SCH ×4 (08:02→20:17)
[2021-01-23] MEDS: NICOTINE POLACRILEX 2 MG LOZENGE BC PRN ×3 (08:19→19:17)
--- NOTE | 2021-01-23 17:02 | NUR ---
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 Pt Public Guardian is Thuy Frost phone number #[phone]. Pt was at [place], and was becoming paranoid about his finances. It was found that $200 of his PNI money was unaccounted for and this escalated the patient. Pt began having outbursts of anger and became increasingly paranoid and delusional towards staff and peers. Assessment What has happened this shift: Pt up for breakfast and was cooperative with am assessment and medications. Pt denies suicidal and homicidal ideation and denies hallucinations today. Pt did not have any periods of agitation today; though, did ask for nicotine lozenge x 2 and had one episode when he poked his head into the nurse's station just when a phone call came through and yelled, "I want to hump like fuckin' cats". Pt went to off unit patio walk and was appropriate. Pt had no altercations with peers today. S/I, H/I: Denies A/VH: Denies Sleep: No naps ADL's: Independent Group attendance: patio walk Were meds taken: Yes Any med S/E: Denies Mental Status Exam Appearance: Casual in home clothes, wearing suit jacket. Hair greasy with and without hat Eye contact: Fair Behavior: Cooperative, calm, pacing halls and sitting in room in his chair listening to his headphones. Conversing with peers and staff Speech: WNL Mood: Euthymic Affect: Pleasant Thought process: Pleasantly delusional Thought Content: Circumstantial Cognition: A&Ox3 not to situation Insight: Poor Judgment: Poor Interventions PRN's used: nicotine lozenge Therapeutic interventions: 1:1 assessment, therapeutic conversation, active listening, medication administration/education/monitoring, encouragement to take medications as ordered, behavior monitoring and intervention as needed; reality orientation, limit setting, distraction, redirection, provided encouragement and positive reinforcement, Q 15 minute safety checks. Restraints/seclusion/emergency medication: N/A Justification of Continued Inpatient Treatment: Patient requires a safe and therapeutic milieu while waiting placement. Patient is LPS conserved
[2021-01-23] MEDS: quetiapine 100mg tablet PO SCH (20:16)
[2021-01-23] MEDS: divalproex sodium 500mg tablet.DR PO SCH (20:19)
[2021-01-23 20:26] VITALS: BP 130/80
--- NOTE | 2021-01-24 01:04 | NUR ---
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 Pt Public Guardian is Thuy Frost phone number #[phone]. Pt was at [place], and was becoming paranoid about his finances. It was found that $200 of his PNI money was unaccounted for and this escalated the patient. Pt began having outbursts of anger and became increasingly paranoid and delusional towards staff and peers. Assessment What has happened this shift: Pt up in rec room and was cooperative with assessment and medications. Pt denies suicidal and homicidal ideation and denies hallucinations today. Pt did not have any agitation today; though, did ask for nicotine lozenge x 1 Pt had no altercations with peers today. S/I, H/I: Denies A/VH: Denies Sleep: See sleep hrs. ADL's: Independent Group attendance: patio walk Were meds taken: Yes Any med S/E: Denies Mental Status Exam Appearance: Casual in home clothes, wearing suit jacket. Hair greasy with and without hat Eye contact: Fair Behavior: Cooperative, calm, pacing halls and sitting in room in his chair listening to his headphones. Conversing with peers and staff Speech: WNL Mood: Euthymic Affect: Pleasant Thought process: Pleasantly delusional Thought Content: Circumstantial Cognition: A&Ox3 not to situation Insight: Poor Judgment: Poor Interventions PRN's used: nicotine lozenge Therapeutic interventions: 1:1 assessment, therapeutic conversation, active listening, medication administration/education/monitoring, encouragement to take medications as ordered, behavior monitoring and intervention as needed; reality orientation, limit setting, distraction, redirection, provided encouragement and positive reinforcement, Q 15 minute safety checks. Restraints/seclusion/emergency medication: N/A Justification of Continued Inpatient Treatment: Patient requires a safe and therapeutic milieu while waiting placement. Patient is LPS conserved
[2021-01-24 08:00] VITALS: BP 113/72
[2021-01-24] MEDS: atorvastatin 10mg tablet PO SCH (08:02)
[2021-01-24] MEDS: LORazepam 0.5 MG tablet PO SCH ×3 (08:02→17:41)
[2021-01-24] MEDS: pantoprazole 40mg Tablet.DR PO SCH (08:02)
[2021-01-24] MEDS: trihexyphenidyl HCL 5 MG tablet PO SCH ×3 (08:02→20:12)
[2021-01-24] MEDS: haloperidol 5mg tablet PO SCH ×4 (08:07→20:13)
[2021-01-24] MEDS: NICOTINE POLACRILEX 2 MG LOZENGE BC PRN ×4 (10:30→19:19)
[2021-01-24] MEDS: LORazepam 1 MG tablet PO PRN (14:26)
--- NOTE | 2021-01-24 15:48 | NUR ---
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 Pt Public Guardian is Thuy Frost phone number #[phone]. Pt was at [place], and was becoming paranoid about his finances. It was found that $200 of his PNI money was unaccounted for and this escalated the patient. Pt began having outbursts of anger and became increasingly paranoid and delusional towards staff and peers. Assessment What has happened this shift: Pt up for breakfast and was cooperative with am assessment and medications. Pt denies suicidal and homicidal ideation and denies hallucinations today. Pt had one period of agitation today with two of his peers. RN intervened and pt stated he was fine and didn't need any medications, but about 10 minutes later, pt came to RN and asked for something for anxiety and was given ativan with positive results. S/I, H/I: Denies A/VH: Denies Sleep: No naps ADL's: Independent Group attendance: patio walk Were meds taken: Yes Any med S/E: Denies Mental Status Exam Appearance: Casual in home clothes, wearing suit jacket. Hair greasy with and without hat Eye contact: Fair Behavior: Cooperative, calm, pacing halls and sitting in room in his chair listening to his headphones. Conversing with peers and staff Speech: WNL Mood: Euthymic Affect: Pleasant Thought process: Pleasantly delusional Thought Content: Circumstantial Cognition: A&Ox3 not to situation Insight: Poor Judgment: Poor Interventions PRN's used: nicotine lozenge, ativan Therapeutic interventions: 1:1 assessment, therapeutic conversation, active listening, medication administration/education/monitoring, encouragement to take medications as ordered, behavior monitoring and intervention as needed; reality orientation, limit setting, distraction, redirection, provided encouragement and positive reinforcement, Q 15 minute safety checks. Restraints/seclusion/emergency medication: N/A Justification of Continued Inpatient Treatment: Patient requires a safe and therapeutic milieu while waiting placement. Patient is LPS conserved
[2021-01-24] MEDS: quetiapine 100mg tablet PO SCH (20:12)
[2021-01-24] MEDS: divalproex sodium 500mg tablet.DR PO SCH (20:12)
[2021-01-24 20:35] VITALS: BP 128/86
--- NOTE | 2021-01-25 00:17 | NUR ---
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 Pt Public Guardian is Thuy Frost phone number #[phone]. Pt was at [place], and was becoming paranoid about his finances. It was found that $200 of his PNI money was unaccounted for and this escalated the patient. Pt began having outbursts of anger and became increasingly paranoid and delusional towards staff and peers. Assessment What has happened this shift: Pt up on unit and was cooperative with am assessment and medications. Pt denies suicidal and homicidal ideation and denies hallucinations today. Pt ate snack in group room paced phillips with headphones on before retiring to bed. S/I, H/I: Denies A/VH: Denies Sleep: See sleep hrs ADL's: Independent Group attendance: patio walk Were meds taken: Yes Any med S/E: Denies Mental Status Exam Appearance: Casual in home clothes, wearing suit jacket. Hair greasy with and without hat Eye contact: Fair Behavior: Cooperative, calm, pacing halls and sitting in room in his chair listening to his headphones. Conversing with peers and staff Speech: WNL Mood: Euthymic Affect: Pleasant Thought process: Pleasantly delusional Thought Content: Circumstantial Cognition: A&Ox3 not to situation Insight: Poor Judgment: Poor Interventions PRN's used: nicotine lozenge, ativan Therapeutic interventions: 1:1 assessment, therapeutic conversation, active listening, medication administration/education/monitoring, encouragement to take medications as ordered, behavior monitoring and intervention as needed; reality orientation, limit setting, distraction, redirection, provided encouragement and positive reinforcement, Q 15 minute safety checks. Restraints/seclusion/emergency medication: N/A Justification of Continued Inpatient Treatment: Patient requires a safe and therapeutic milieu while waiting placement. Patient is LPS conserved
[2021-01-25] MEDS: NICOTINE POLACRILEX 2 MG LOZENGE BC PRN ×2 (06:38→18:20)
[2021-01-25 08:22] VITALS: BP 100/81
[2021-01-25] MEDS: trihexyphenidyl HCL 5 MG tablet PO SCH ×3 (08:55→20:12)
[2021-01-25] MEDS: LORazepam 0.5 MG tablet PO SCH ×3 (08:56→16:50)
[2021-01-25] MEDS: atorvastatin 10mg tablet PO SCH (08:56)
[2021-01-25] MEDS: pantoprazole 40mg Tablet.DR PO SCH (08:56)
[2021-01-25] MEDS: haloperidol 5mg tablet PO SCH ×4 (08:56→20:11)
[2021-01-25] MEDS: LORazepam 1 MG tablet PO PRN (14:13)
--- NOTE | 2021-01-25 15:16 | NUR ---
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 Pt Public Guardian is Thuy Frost phone number #[phone]. Pt was at [place], and was becoming paranoid about his finances. It was found that $200 of his PNI money was unaccounted for and this escalated the patient. Pt began having outbursts of anger and became increasingly paranoid and delusional towards staff and peers. Assessment What has happened this shift: Hardik has had very little change in his bx and MSE, patient continues to be liable at times with no obvious triggers. Patient is able to re-direct often times with out PRN's, Patient has had a good afternoon, pacing with his street clothes, hat and suit jacket, " I know I am half cocked sometimes so I want to say sorry". Causally groomed. Patient did require Nicotine Doris a few times today. This physician underwriter had a linear conversation with Hardik late in the day about his watch. Hardik is a very good conversationalist when he is in the mood. 1413 Patient came to nurses station to ask for a Ativan, Patient states "there is a situation, a gabriella got kicked out of his room so another room change can happen, there is a situation", this physician underwriter asked what is the situation? Hardik looked this physician underwriter square in the face and said "I don't know". Patient was given Ativan 1mg po, this was helpful. S/I, H/I: Denies A/VH: Denies Sleep: No naps ADL's: Independent Group attendance: yes. "It is very important for me to attend group, so I attend group". Were meds taken: Yes Any med S/E: Denies Mental Status Exam Appearance: Casual in home clothes, wearing suit jacket. Hair greasy and wearing a mask today Eye contact: Fair Behavior: Cooperative, calm, pacing halls and sitting in room in his chair listening to his headphones. Conversing with peers and staff Speech: WNL Mood: "I am in a ok mood today, not always good but just ok" Affect: Pleasant Thought process: Pleasantly delusional Thought Content: Circumstantial Cognition: A&Ox3 not to situation Insight: Poor Judgment: Poor Interventions PRN's used: none today Therapeutic interventions: 1:1 assessment, therapeutic conversation, active listening, medication administration/education/monitoring, encouragement to take medications as ordered, behavior monitoring and intervention as needed; reality orientation, limit setting, distraction, redirection, provided encouragement and positive reinforcement, Q 15 minute safety checks. Restraints/seclusion/emergency medication: N/A Justification of Continued Inpatient Treatment: Patient requires a safe and therapeutic milieu while waiting placement. Patient is LPS conserved
[2021-01-25] MEDS: divalproex sodium 500mg tablet.DR PO SCH (20:11)
[2021-01-25] MEDS: quetiapine 100mg tablet PO SCH (20:12)
[2021-01-25 20:28] VITALS: BP 102/75
--- NOTE | 2021-01-26 01:57 | NUR ---
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 Pt Public Guardian is Thuy Frost phone number #[phone]. Pt was at [place], and was becoming paranoid about his finances. It was found that $200 of his PNI money was unaccounted for and this escalated the patient. Pt began having outbursts of anger and became increasingly paranoid and delusional towards staff and peers. Assessment What has happened this shift: Patient was up and mingling in the phillips at shift change. Pt was cheerful and social with peers and staff. Pt ate snack in group room was med compliant and went to bed. No outburst or behaviors noted this shift. S/I, H/I: Denies A/VH: Denies Sleep: See sleep hrs. ADL's: Independent Group attendance: yes. "It is very important for me to attend group, so I attend group". Were meds taken: Yes Any med S/E: Denies Mental Status Exam Appearance: Casual in home clothes, wearing suit jacket. Hair greasy and wearing a mask today Eye contact: Fair Behavior: Cooperative, calm, pacing halls and sitting in room in his chair listening to his headphones. Conversing with peers and staff Speech: WNL Mood: "I am in a ok mood today, not always good but just ok" Affect: Pleasant Thought process: Pleasantly delusional Thought Content: Circumstantial Cognition: A&Ox3 not to situation Insight: Poor Judgment: Poor Interventions PRN's used: none today Therapeutic interventions: 1:1 assessment, therapeutic conversation, active listening, medication administration/education/monitoring, encouragement to take medications as ordered, behavior monitoring and intervention as needed; reality orientation, limit setting, distraction, redirection, provided encouragement and positive reinforcement, Q 15 minute safety checks. Restraints/seclusion/emergency medication: N/A Justification of Continued Inpatient Treatment: Patient requires a safe and therapeutic milieu while waiting placement. Patient is LPS conserved
[2021-01-26 08:00] VITALS: BP 118/69
[2021-01-26] MEDS: atorvastatin 10mg tablet PO SCH (08:01)
[2021-01-26] MEDS: haloperidol 5mg tablet PO SCH ×4 (08:02→20:37)
[2021-01-26] MEDS: trihexyphenidyl HCL 5 MG tablet PO SCH ×3 (08:02→20:38)
[2021-01-26] MEDS: pantoprazole 40mg Tablet.DR PO SCH (08:02)
[2021-01-26] MEDS: LORazepam 0.5 MG tablet PO SCH ×3 (08:02→17:45)
[2021-01-26] MEDS: NICOTINE POLACRILEX 2 MG LOZENGE BC PRN ×4 (08:03→18:36)
--- NOTE | 2021-01-26 16:29 | NUR ---
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 Pt Public Guardian is Thuy Frost phone number #[phone]. Pt was at [place], and was becoming paranoid about his finances. It was found that $200 of his PNI money was unaccounted for and this escalated the patient. Pt began having outbursts of anger and became increasingly paranoid and delusional towards staff and peers. Assessment What has happened this shift: Patient was awake at change of shift. Patient was pleasant today, smiling and chatting with staff. Patient denies SI/HI and denies A/V hallucinations. Patient went to group today. Patient takes his medications without any problems. In the afternoon patient comes up to the nurses station and states to RN "That person over there (and he points ot his left) wants to burn himself alive!" RN asked patient who he was talking about. Patient just turns and leaves. Patient was calm and in no distress. About an hour later RN walks out of the Supply room and looks down the phillips where 330 is and patient is standing in the phillips in a t-shirt and boxers. His arms are up and he is smiling and waving both arms above his head. The closest tech walks him to his room and encourages him to get dressed which he did. Patient is pleasant and delusional. S/I, H/I: Denies A/VH: Denies Sleep: No naps ADL's: Independent Group attendance: yes. Were meds taken: Yes Any med S/E: Denies Mental Status Exam Appearance: black shirt and jeans with a black baseball cap Eye contact: Fair Behavior: Cooperative Speech: WNL Mood: Happy Affect: Pleasant Thought process: Pleasantly delusional Thought Content: Circumstantial Cognition: A&Ox3 not to situation Insight: Poor Judgment: Poor Interventions PRN's used: Nicotine Lozenges Therapeutic interventions: 1:1 assessment, therapeutic conversation, active listening, medication administration/education/monitoring, encouragement to take medications as ordered, behavior monitoring and intervention as needed; reality orientation, limit setting, distraction, redirection, provided encouragement and positive reinforcement, Q 15 minute safety checks. Restraints/seclusion/emergency medication: N/A Justification of Continued Inpatient Treatment: Patient requires a safe and therapeutic milieu while waiting placement. Patient is LPS conserved
[2021-01-26 19:29] VITALS: BP 124/77
[2021-01-26] MEDS: quetiapine 100mg tablet PO SCH (20:37)
[2021-01-26] MEDS: divalproex sodium 500mg tablet.DR PO SCH (20:37)
--- NOTE | 2021-01-27 04:20 | NUR ---
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 Pt Public Guardian is Thuy Frost phone number #[phone]. Pt was at [place], and was becoming paranoid about his finances. It was found that $200 of his PNI money was unaccounted for and this escalated the patient. Pt began having outbursts of anger and became increasingly paranoid and delusional towards staff and peers. Assessment What has happened this shift: Patient was wearing his blazer, jeans, and mask pacing with headphones at shift change. He is in a pleasant mood and is seen interacting well with staff and peers. No outburst or behaviors noted this shift. He takes his HS medications without issue and is able to fall asleep with ease. S/I, H/I: Denies A/VH: Denies Sleep: See sleep hrs. ADL's: Independent Group attendance: na Were meds taken: Yes Any med S/E: Denies Mental Status Exam Appearance: in personal clothes Eye contact: Fair Behavior: Cooperative, calm Speech: WNL Mood: upbeat Affect: Pleasant Thought process: Pleasantly delusional Thought Content: Circumstantial Cognition: A&Ox3 not to situation Insight: Poor Judgment: Poor Interventions PRN's used: nicotine pavel Therapeutic interventions: 1:1 assessment, therapeutic conversation, active listening, medication administration/education/monitoring, encouragement to take medications as ordered, behavior monitoring and intervention as needed; reality orientation, limit setting, distraction, redirection, provided encouragement and positive reinforcement, Q 15 minute safety checks. Restraints/seclusion/emergency medication: N/A Justification of Continued Inpatient Treatment: Patient requires a safe and therapeutic milieu while waiting placement. Patient is LPS conserved
[2021-01-27] MEDS: acetaminophen 325mg tablet PO PRN (05:51)
[2021-01-27] MEDS: NICOTINE POLACRILEX 2 MG LOZENGE BC PRN ×5 (05:51→17:10)
[2021-01-27 07:35] VITALS: BP 110/56
[2021-01-27] MEDS: haloperidol 5mg tablet PO SCH ×4 (07:42→20:01)
[2021-01-27] MEDS: atorvastatin 10mg tablet PO SCH (07:43)
[2021-01-27] MEDS: LORazepam 0.5 MG tablet PO SCH ×3 (07:43→17:10)
[2021-01-27] MEDS: pantoprazole 40mg Tablet.DR PO SCH (07:43)
[2021-01-27] MEDS: trihexyphenidyl HCL 5 MG tablet PO SCH ×3 (07:44→20:00)
--- NOTE | 2021-01-27 08:31 | NUR ---
PLACEMENT UPDATE Declined at [facility] Skye responded she reviewed this client's referral with her team and they denied due to client's last admission being unsuccessful. Updates sent to Bhargavi Estrada. LEXIE Squires
--- NOTE | 2021-01-27 09:53 | NUR ---
PLACEMENT Faxed updated notes (01/19-01/26) to [facility] office for placement purposes. LEXIE Squires
--- NOTE | 2021-01-27 15:02 | NUR ---
Nursing Progress Note Legal hold: LPS Client on involuntary status for GD Report received from Veronica Jones RN with use of SBAR Why are they here: Patient is LPS conserved and has a hx of schizoaffective disorder and PICA. Pt Public Guardian is Thuy Frost phone number #[phone]. Pt was at [place], and was becoming paranoid about his finances. It was found that $200 of his PNI money was unaccounted for and this escalated the patient. Pt began having outbursts of anger and became increasingly paranoid and delusional towards staff and peers. Assessment What has happened this shift: Patient was awake at change of shift. Patient was pleasant today, smiling and chatting with staff. Patient denies SI/HI and denies A/V hallucinations. Patient walking up and down the halls with his headphone on listening to music. Patient appeared happy today chatting with staff and Nursing students. Patient denies SI/HI ideation. Patient denies audio/visual hallucinations. Patient has not had any delusional statements or antics today. S/I, H/I: Denies A/VH: Denies Sleep: No naps ADL's: Independent Group attendance: No group today Were meds taken: Yes Any med S/E: Denies Mental Status Exam Appearance: black shirt and jeans with a black baseball cap Eye contact: Fair Behavior: Cooperative Speech: WNL Mood: Happy Affect: Pleasant Thought process: Thought Content: Circumstantial Cognition: A&Ox3 not to situation Insight: Poor Judgment: Poor Interventions PRN's used: Nicotine Lozenges Therapeutic interventions: 1:1 assessment, therapeutic conversation, active listening, medication administration/education/monitoring, encouragement to take medications as ordered, behavior monitoring and intervention as needed; reality orientation, limit setting, distraction, redirection, provided encouragement and positive reinforcement, Q 15 minute safety checks. Restraints/seclusion/emergency medication: N/A Justification of Continued Inpatient Treatment: Patient requires a safe and therapeutic milieu while waiting placement. Patient is LPS conserved
[2021-01-27 20:00] VITALS: BP 127/89
[2021-01-27] MEDS: quetiapine 100mg tablet PO SCH (20:00)
[2021-01-27] MEDS: divalproex sodium 500mg tablet.DR PO SCH (20:00)
--- NOTE | 2021-01-28 01:19 | NUR ---
Nursing Progress Note Legal hold: LPS Client on involuntary status for GD Report received from Veronica Jones RN with use of SBAR Why are they here: Patient is LPS conserved and has a hx of schizoaffective disorder and PICA. Pt Public Guardian is Thuy Frost phone number #[phone]. Pt was at [place], and was becoming paranoid about his finances. It was found that $200 of his PNI money was unaccounted for and this escalated the patient. Pt began having outbursts of anger and became increasingly paranoid and delusional towards staff and peers. Assessment What has happened this shift: Patient was social and cooperative this shift. He listens to music on his headphones. He denies H/I, S/I S/I, H/I: Denies A/VH: Denies Sleep: No naps ADL's: Independent Group attendance: No group today Were meds taken: Yes, medication compliant Any med S/E: None noted or observed Mental Status Exam Appearance: Clean and well dressed Eye contact: Fair Behavior: Cooperative Speech: WNL Mood: Friendly, happy Affect: Pleasant Thought process: Circumstantial Thought Content: Circumstantial Cognition: A&Ox3 not to situation Insight: Poor Judgment: Poor Interventions PRN's used: None Therapeutic interventions: 1:1 assessment, therapeutic conversation, active listening, medication administration/education/monitoring, encouragement to take medications as ordered, behavior monitoring and intervention as needed; reality orientation, limit setting, distraction, redirection, provided encouragement and positive reinforcement, Q 15 minute safety checks. Restraints/seclusion/emergency medication: N/A Justification of Continued Inpatient Treatment: Patient requires a safe and therapeutic milieu while waiting placement. Patient is LPS conserved
[2021-01-28] MEDS: acetaminophen 325mg tablet PO PRN (05:48)
[2021-01-28] MEDS: NICOTINE POLACRILEX 2 MG LOZENGE BC PRN ×6 (05:48→20:33)
[2021-01-28 07:35] VITALS: BP 120/84
[2021-01-28] MEDS: LORazepam 0.5 MG tablet PO SCH ×3 (08:36→16:38)
[2021-01-28] MEDS: trihexyphenidyl HCL 5 MG tablet PO SCH ×3 (08:36→20:07)
[2021-01-28] MEDS: atorvastatin 10mg tablet PO SCH (08:36)
[2021-01-28] MEDS: haloperidol 5mg tablet PO SCH ×4 (08:36→20:07)
[2021-01-28] MEDS: pantoprazole 40mg Tablet.DR PO SCH (08:37)
--- NOTE | 2021-01-28 16:24 | NUR ---
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 Pt Public Guardian is Thuy Frost phone number #[phone]. Pt was at [place], and was becoming paranoid about his finances. It was found that $200 of his PNI money was unaccounted for and this escalated the patient. Pt began having outbursts of anger and became increasingly paranoid and delusional towards staff and peers. Assessment What has happened this shift: Pt has had 2-3 angry outburst today related to internal stimuli. He is easily redirected. No PRN's needed. Pt is visible on the unit most of the shift however, occasionally he takes himself to his room for a brief "time-out." S/I, H/I: Denies A/VH: Denies Sleep: No naps ADL's: Independent Group attendance: Yes, outside group Were Meds taken: Yes Any med S/E: Denies Mental Status Exam Appearance: black shirt and jeans with a black baseball cap Eye contact: Fair Behavior: Required multiple episodes of redirecting Speech: WNL Mood: Anxious, appears and sounds frustrated on and off today Affect: blunted Thought process: he responds to internal stimuli Thought Content: Circumstantial Cognition: A&Ox3 not to situation Insight: Poor Judgment: Poor Interventions PRN's used: Nicotine Lozenges Therapeutic interventions: Provided MSE and H&P at bedside; provided therapeutic conversation with active listening, medication administration/education/monitoring, behavior monitoring and intervention as needed; reality orientation, limit setting, distraction, redirection, provided encouragement and positive reinforcement, Q 15 minute safety checks. Restraints/seclusion/emergency medication: N/A Justification of Continued Inpatient Treatment: Patient requires a safe and therapeutic milieu while waiting placement. Patient is LPS conserved
[2021-01-28 19:00] VITALS: BP 115/78
[2021-01-28] MEDS: divalproex sodium 500mg tablet.DR PO SCH (20:07)
[2021-01-28] MEDS: quetiapine 100mg tablet PO SCH (20:07)
--- NOTE | 2021-01-29 | NUR ---
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 Pt Public Guardian is Thuy Frost phone number #[phone]. Pt was at [place], and was becoming paranoid about his finances. It was found that $200 of his PNI money was unaccounted for and this escalated the patient. Pt began having outbursts of anger and became increasingly paranoid and delusional towards staff and peers. Assessment What has happened this shift: Patient is cooperative this shift, he denies any S/I, H/I, or hallucinations. Patient ate dinner, he was observed sitting quietly in the community room. Patient is medication compliant. Patient does request nicotine lozenges. Some time was spent watching television. 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 Were Meds taken: Yes, medication compliant Any med S/E: Denies, none noted or observed Mental Status Exam Appearance: WNL, clean and groomed. Eye contact: Good Behavior: Calm and quiet Speech: WNL Mood: Relaxed, casual Affect: WNL Thought process: Patient not discussing much Thought Content: Circumstantial Cognition: A&Ox3 not to situation Insight: Poor Judgment: Poor Interventions PRN's used: Nicotine Lozenges Therapeutic interventions: Provided MSE and H&P at bedside; provided therapeutic conversation with active listening, medication administration/education/monitoring, behavior monitoring and intervention as needed; reality orientation, limit setting, distraction, redirection, provided encouragement and positive reinforcement, Q 15 minute safety checks. Restraints/seclusion/emergency medication: N/A Justification of Continued Inpatient Treatment: Patient requires a safe and therapeutic milieu while waiting placement. Patient is LPS conserved
[2021-01-29] MEDS: NICOTINE POLACRILEX 2 MG LOZENGE BC PRN ×4 (06:05→18:43)
[2021-01-29] MEDS: acetaminophen 325mg tablet PO PRN (06:05)
[2021-01-29] MEDS: trihexyphenidyl HCL 5 MG tablet PO SCH ×3 (07:30→22:10)
[2021-01-29] MEDS: haloperidol 5mg tablet PO SCH ×4 (07:30→22:10)
[2021-01-29] MEDS: atorvastatin 10mg tablet PO SCH (07:30)
[2021-01-29] MEDS: LORazepam 0.5 MG tablet PO SCH ×3 (07:30→17:10)
[2021-01-29] MEDS: pantoprazole 40mg Tablet.DR PO SCH (07:32)
[2021-01-29 07:35] LABS: ALANINE AMINOTRANSFERASE 21 U/L (12-78); ALBUMIN 3.4 G/DL (3.4-5.0); ALBUMIN/GLOBULIN RATIO 1.1 (1.1-1.5); ALKALINE PHOSPHATASE 137 IU/L (46-116); ANION GAP 8 (8-16); ASPARTATE AMINO TRANSFERASE 13 U/L (10-37); BILIRUBIN,TOTAL 0.3 MG/DL (0.1-1.0); BLOOD UREA NITROGEN 13 MG/DL (7-18); CALCIUM 9.4 MG/DL (8.5-10.1); CHLORIDE 106 MMOL/L (99-107); CREATININE 0.81 MG/DL (0.60-1.10); GLUCOSE 99 MG/DL (70-104); POTASSIUM 4.4 MMOL/L (3.5-5.1); SODIUM 142 MMOL/L (135-145); TOTAL CARBON DIOXIDE 28.1 MMOL/L (24-32); TOTAL PROTEIN 6.6 G/DL (6.4-8.2); VALPROATE 82 UG/ML (50-100); eGFR > 90 ML/MIN
[2021-01-29 07:37] VITALS: BP 107/68
[2021-01-29 07:40] LABS: BASOPHILS # (AUTO) 0.1 X10'3 (0-0.2); BASOPHILS % (AUTO) 1.1 % (0-1); EOSINOPHILS # (AUTO) 0.5 X10'3 (0-0.9); EOSINOPHILS % (AUTO) 9.3 % (0-6); HEMATOCRIT 37.9 % (42.0-52.0); HEMOGLOBIN 12.7 g/dl (14.0-17.9); LYMPHOCYTES % (AUTO) 37.1 % (21-51); MEAN CORPUSCULAR HGB CONC 33.4 g/dL (33.0-36.5); MEAN CORPUSCULAR VOLUME 95.9 FL (78-98); MEAN PLATELET VOLUME 7.7 FL (7.4-10.4); MONOCYTES # (AUTO) 0.5 X10'3 (0-0.9); MONOCYTES % (AUTO) 9.3 % (2-12); NEUTROPHILS # (AUTO) 2.3 X10'3 (1.8-7.7); NEUTROPHILS % (AUTO) 43.2 % (42-75); PLATELET COUNT 210 X10'3 (140-440); RED BLOOD COUNT 3.96 X10'6 (4.70-6.10); WHITE BLOOD COUNT 5.4 X10'3 (4.5-11.0)
--- NOTE | 2021-01-29 10:18 | NUR ---
Reassessment: Pt PO 75-100% avg regular diet meeting needs. LBM 01/27. No nutrition concerns at this time. Will continue to monitor. Recommend: 1. Continue regular diet 2. Bowel care as needed 3. Weekly weights Addendum: 01/29/21 at [address] Amended: Links added.
--- NOTE | 2021-01-29 17:28 | NUR ---
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 Pt Public Guardian is Thuy Frost phone number #[phone]. Pt was at [place], and was becoming paranoid about his finances. It was found that $200 of his PNI money was unaccounted for and this escalated the patient. Pt began having outbursts of anger and became increasingly paranoid and delusional towards staff and peers. Assessment What has happened this shift: Pt. awake at start of shift and friendly upon greeting this RN. Pt. requested his medications and took all meds. Pt. ate all meals in community room. After breakfast pt. became agitated, yelling loudly and swearing. 1:1 done at bedside, pt. reports about paranoid delusions, that an alien has taken over his brain. Pt. also tells this RN that his head was run over by thugs in his neighborhood. Pt. denies SI/HI, A/V hallucinations. Pt. eventually calmed down. Pt. pleasant in the afternoon, pacing halls and listening to headphones. S/I, H/I: Denies A/VH: Denies Sleep: Pt. did not nap on day shift. ADL's: Independent Group attendance: Yes, outside group Were Meds taken: Yes Any med S/E: Denies Mental Status Exam Appearance: black shirt and jeans with a black baseball cap Eye contact: Fair Behavior: Cooperative, one episode of outburst today. Pt. social with peers and staff. Listening to headphones in his room and watching TV. Speech: Loud, but otherwise WNL. Mood: Euthymic minus one angry outburst today. Affect: blunted Thought process: Paranoid delusions. Thought Content: Aliens taking over his brain. Getting needs met. Cognition: A&Ox3 not to situation Insight: Poor Judgment: Poor Interventions PRN's used: Nicotine Lozenges Therapeutic interventions: Provided MSE and H&P at bedside; provided therapeutic conversation with active listening, medication administration/education/monitoring, behavior monitoring and intervention as needed; reality orientation, limit setting, distraction, redirection, provided encouragement and positive reinforcement, Q 15 minute safety checks. Restraints/seclusion/emergency medication: N/A Justification of Continued Inpatient Treatment: Patient requires a safe and therapeutic milieu while waiting placement. Patient is LPS conserved
[2021-01-29 19:58] VITALS: BP 118/78
[2021-01-29] MEDS: divalproex sodium 500mg tablet.DR PO SCH (21:00)
[2021-01-29] MEDS: quetiapine 100mg tablet PO SCH (22:10)
--- NOTE | 2021-01-30 04:05 | NUR ---
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 Pt Public Guardian is Thuy Frost phone number #[phone]. Pt was at [place], and was becoming paranoid about his finances. It was found that $200 of his PNI money was unaccounted for and this escalated the patient. Pt began having outbursts of anger and became increasingly paranoid and delusional towards staff and peers. Assessment What has happened this shift: Patient is cooperative this shift, he denies any S/I, H/I, or hallucinations. Patient watches television, some socialization with peers. Patient is quiet this shift. No indication of internal stimuli this shift. S/I, H/I: Denies A/VH: Denies Sleep: Will tally at 0500 hours ADL's: Independent Group attendance: No group on rn shift mgr. Were Meds taken: Yes, medication compliant Any med S/E: Denies, none noted or observed Mental Status Exam Appearance: WNL, Clean and groomed. Eye contact: Good Behavior: Calm and quiet Speech: WNL Mood: Relaxed, casual Affect: WNL Thought process: Patient not discussing much Thought Content: Circumstantial Cognition: A&Ox3 not to situation Insight: Poor Judgment: Poor Interventions PRN's used: Nicotine Lozenges Therapeutic interventions: Provided MSE and H&P at bedside; provided therapeutic conversation with active listening, medication administration/education/monitoring, behavior monitoring and intervention as needed; reality orientation, limit setting, distraction, redirection, provided encouragement and positive reinforcement, Q 15 minute safety checks. Restraints/seclusion/emergency medication: N/A Justification of Continued Inpatient Treatment: Patient requires a safe and therapeutic milieu while waiting placement. Patient is LPS conserved
[2021-01-30] MEDS: NICOTINE POLACRILEX 2 MG LOZENGE BC PRN ×4 (06:18→19:28)
[2021-01-30] MEDS: acetaminophen 325mg tablet PO PRN (06:19)
[2021-01-30] MEDS: trihexyphenidyl HCL 5 MG tablet PO SCH ×3 (07:10→20:03)
[2021-01-30] MEDS: LORazepam 0.5 MG tablet PO SCH ×3 (07:10→17:31)
[2021-01-30] MEDS: atorvastatin 10mg tablet PO SCH (07:10)
[2021-01-30] MEDS: haloperidol 5mg tablet PO SCH ×4 (07:19→20:03)
[2021-01-30] MEDS: pantoprazole 40mg Tablet.DR PO SCH (07:25)
[2021-01-30 07:51] VITALS: BP 116/75
--- NOTE | 2021-01-30 11:44 | NUR ---
Called Katie [facility] Public Guardian (ph# [phone]), to inform her that Hardik had reported he had an eye appt at his last placement and was supposed to get new glasses. Katie reported she will look into it. LEXIE Squires
--- NOTE | 2021-01-30 17:24 | NUR ---
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 Pt Public Guardian is Thuy Frost phone number #[phone]. Pt was at [place], and was becoming paranoid about his finances. It was found that $200 of his PNI money was unaccounted for and this escalated the patient. Pt began having outbursts of anger and became increasingly paranoid and delusional towards staff and peers. Assessment What has happened this shift: Pt. awake at start of shift and friendly upon greeting this RN. Pt. requested his medications and took all meds. Pt. ate all meals in community room. Pt. became agitated in afternoon, yelling in his room, Youre gonna rake me over the coals arent you! When asked what was wrong, pt. states, Its all about her! She wants to feed all the hungry children in the world using my tax dollars! Pt. given coffee and pt. calmed down. Pt. states, Im sorry, Im just angry. I want to pray. Pt. observed pacing the halls and listening to headphones. Pt. again became agitated, shouting about why he was kicked out of his last IMD. S/I, H/I: Denies A/VH: Denies Sleep: Pt. did not nap on day shift. ADL's: Independent Group attendance: Yes, outside group Were Meds taken: Yes Any med S/E: Denies Mental Status Exam Appearance: black shirt and jeans with a black baseball cap Eye contact: Fair Behavior: Cooperative, pt. had two outbursts today. Pt. social with peers and staff. Listening to headphones in his room and watching TV. Speech: Loud, but otherwise WNL. Mood: Euthymic minus two angry outbursts today. Affect: blunted Thought process: Paranoid delusions. Personalization. Thought Content: Circumstantial. Cognition: A&Ox3 not to situation Insight: Poor Judgment: Poor Interventions PRN's used: Nicotine Lozenges Therapeutic interventions: Provided MSE and H&P at bedside; provided therapeutic conversation with active listening, medication administration/education/monitoring, behavior monitoring and intervention as needed; reality orientation, limit setting, distraction, redirection, provided encouragement and positive reinforcement, Q 15 minute safety checks. Restraints/seclusion/emergency medication: N/A Justification of Continued Inpatient Treatment: Patient requires a safe and therapeutic milieu while waiting placement. Patient is LPS conserved
[2021-01-30 19:34] VITALS: BP 126/82
[2021-01-30] MEDS: divalproex sodium 500mg tablet.DR PO SCH (20:03)
[2021-01-30] MEDS: quetiapine 100mg tablet PO SCH (20:03)
--- NOTE | 2021-01-31 02:34 | NUR ---
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 Pt Public Guardian is Thuy Frost phone number #[phone]. Pt was at [place], and was becoming paranoid about his finances. It was found that $200 of his PNI money was unaccounted for and this escalated the patient. Pt began having outbursts of anger and became increasingly paranoid and delusional towards staff and peers. Assessment What has happened this shift: Pt. observed pacing the halls and listening to headphones. Calm and cooperative this shift. No periods of Agitation. S/I, H/I: Denies A/VH: Denies Sleep: Asleep at this time, ADL's: Independent Group attendance: NA Were Meds taken: Yes Any med S/E: Denies Mental Status Exam Appearance: black shirt and jeans with a black baseball cap Eye contact: Fair Behavior: Cooperative, pt. had two outbursts today. Pt. social with peers and staff. Listening to headphones in his room and watching TV. Speech: Loud, but otherwise WNL. minus two angry outbursts today. Affect: blunted Thought process: Paranoid delusions. Personalization. Thought Content: Circumstantial. Cognition: A&Ox3 not to situation Insight: Poor Judgment: Poor Interventions PRN's used: Nicotine Lozenges Therapeutic interventions: Provided MSE and H&P at bedside; provided therapeutic conversation with active listening, medication administration/education/monitoring, behavior monitoring and intervention as needed; reality orientation, limit setting, distraction, redirection, provided encouragement and positive reinforcement, Q 15 minute safety checks. Restraints/seclusion/emergency medication: N/A Justification of Continued Inpatient Treatment: Patient requires a safe and therapeutic milieu while waiting placement. Patient is LPS conserved
[2021-01-31] MEDS: NICOTINE POLACRILEX 2 MG LOZENGE BC PRN ×3 (06:13→16:03)
[2021-01-31] MEDS: acetaminophen 325mg tablet PO PRN ×2 (06:14→08:18)
[2021-01-31] MEDS: atorvastatin 10mg tablet PO SCH (07:37)
[2021-01-31] MEDS: pantoprazole 40mg Tablet.DR PO SCH ×3 (07:37→09:13)
[2021-01-31] MEDS: LORazepam 0.5 MG tablet PO SCH ×3 (07:37→17:30)
[2021-01-31] MEDS: trihexyphenidyl HCL 5 MG tablet PO SCH ×3 (07:37→20:02)
[2021-01-31] MEDS: haloperidol 5mg tablet PO SCH ×4 (07:38→20:03)
[2021-01-31 08:00] VITALS: BP 108/78
--- NOTE | 2021-01-31 15:03 | NUR ---
PLACEMENT UPDATE Hardik has been "tenatively" accepted at [facility] when they have a bed available. At that time they will request updated notes and make a final decision. LEXIE Squires
--- NOTE | 2021-01-31 18:07 | NUR ---
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 Pt Public Guardian is Thuy Frost phone number #[phone]. Pt was at [place], and was becoming paranoid about his finances. It was found that $200 of his PNI money was unaccounted for and this escalated the patient. Pt began having outbursts of anger and became increasingly paranoid and delusional towards staff and peers. Assessment What has happened this shift: Pt. awake at start of shift and friendly upon greeting this RN. Pt. requested his medications and took all meds. Pt. ate all meals in community room. 1:1 done at bedside, pt. reports hes doing OK and feels hopeful for the future of his placement. Pt. became agitated in afternoon, yelling in his room, You want crack cocaine dont you?! And Theres in alien in my brain! When asked to lower his voice pt. became louder, when offered a prn pt. refused. Pt. eventually quieted down. Later pt. observed in the halls pacing and listening to headphones and socializing with peers and staff. S/I, H/I: Denies A/VH: Denies Sleep: Pt. did not nap on day shift. ADL's: Independent Group attendance: Yes Were Meds taken: Yes Any med S/E: Denies Mental Status Exam Appearance: black shirt with suit coat, jeans and a black baseball cap Eye contact: Fair Behavior: Cooperative, pt. had one outburst today. Pt. social with peers and staff. Listening to headphones in his room and watching TV. Speech: Loud, but otherwise WNL. Mood: Euthymic minus an angry outburst today. Affect: blunted Thought process: Paranoid delusions. Personalization. Thought Content: Circumstantial. Cognition: A&Ox3 not to situation Insight: Poor Judgment: Poor Interventions PRN's used: Nicotine Lozenges Therapeutic interventions: Provided MSE and H&P at bedside; provided therapeutic conversation with active listening, medication administration/education/monitoring, behavior monitoring and intervention as needed; reality orientation, limit setting, distraction, redirection, provided encouragement and positive reinforcement, Q 15 minute safety checks. Restraints/seclusion/emergency medication: N/A Justification of Continued Inpatient Treatment: Patient requires a safe and therapeutic milieu while waiting placement. Patient is LPS conserved.
[2021-01-31] MEDS: divalproex sodium 500mg tablet.DR PO SCH (20:02)
[2021-01-31] MEDS: quetiapine 100mg tablet PO SCH (20:03)
[2021-01-31 20:56] VITALS: BP 102/72
[2021-02-01] MEDS: NICOTINE POLACRILEX 2 MG LOZENGE BC PRN ×5 (00:20→17:04)
--- NOTE | 2021-02-01 03:27 | NUR ---
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 Pt Public Guardian is Thuy Frost phone number #[phone]. Pt was at [place], and was becoming paranoid about his finances. It was found that $200 of his PNI money was unaccounted for and this escalated the patient. Pt began having outbursts of anger and became increasingly paranoid and delusional towards staff and peers. Assessment What has happened this shift: The patient was in the phillips at shift change. He was in a fairly good mood tonight, and made no delusional comments or outbursts. He shared with this nurse that he would rather stop taking Seroquel at night, and get back to going to sleep without a sleep aid. He says it makes him wake up in a bad mood. Patient stayed up after med pass pacing with the headphones on, being playful, before finally retiring to bed. S/I, H/I: Denies A/VH: Denies Sleep: See sleep assessment ADL's: Independent Group attendance: N/A Were Meds taken: Yes Any med S/E: None reported or observed. Mental Status Exam Appearance: Well groomed in black shirt and jeans with a black baseball cap Eye contact: Good Behavior: Cooperative, pleasant, playful, social Speech: Loud, but clear. Affect: Blunted Thought process: Paranoid delusions. Personalization. Thought Content: Circumstantial. Cognition: A&Ox3 not to situation Insight: Poor Judgment: Poor Interventions PRN's used: Nicotine Lozenges Therapeutic interventions: Provided MSE and H&P at bedside; provided therapeutic conversation with active listening, medication administration/education/monitoring, behavior monitoring and intervention as needed; reality orientation, limit setting, distraction, redirection, provided encouragement and positive reinforcement, Q 15 minute safety checks. Restraints/seclusion/emergency medication: N/A Justification of Continued Inpatient Treatment: Patient requires a safe and therapeutic milieu while waiting placement. Patient is LPS conserved
[2021-02-01] MEDS: acetaminophen 325mg tablet PO PRN (06:04)
[2021-02-01] MEDS: atorvastatin 10mg tablet PO SCH (07:49)
[2021-02-01] MEDS: LORazepam 0.5 MG tablet PO SCH ×3 (07:49→17:04)
[2021-02-01] MEDS: trihexyphenidyl HCL 5 MG tablet PO SCH ×3 (07:49→20:25)
[2021-02-01] MEDS: haloperidol 5mg tablet PO SCH ×4 (07:49→20:25)
[2021-02-01] MEDS: pantoprazole 40mg Tablet.DR PO SCH (08:24)
[2021-02-01 08:25] VITALS: BP 110/68
--- NOTE | 2021-02-01 14:58 | NUR ---
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 Pt Public Guardian is Thuy Frost phone number #[phone]. Pt was at [place], and was becoming paranoid about his finances. It was found that $200 of his PNI money was unaccounted for and this escalated the patient. Pt began having outbursts of anger and became increasingly paranoid and delusional towards staff and peers. Assessment What has happened this shift: Hardik is up and around the unit early this morning. Patient has been mostly pleasant all day. Patient was sitting in his room talking loudly, this speech writer went to patient room and asked him if he was ok, Patient states "Ok Ok yea I am ok, I was a shitter in half-way, they all tried to kill me and the guards had to hol them off, yea I am ok if being a big shitter is ok with you"? when asked what a big shitter was patient said 'I don't know, that s just it". S/I, H/I: Denies A/VH: Denies, although he often is having dialog with someone that is not present Sleep: Per NOC 4.5 ADL's: Independent Group attendance: Yes Were Meds taken: Yes Any med S/E: Denies Mental Status Exam Appearance: black shirt with suit coat, jeans and a black baseball cap Eye contact: Fair Behavior: Cooperative, pt. had one outburst today. Pt. social with peers and staff. Listening to headphones in his room and watching TV. Speech: Loud, but otherwise WNL. Mood: Euthymic Affect: blunted Thought process: Paranoid delusions. Personalization. Thought Content: Circumstantial. Cognition: A&Ox3 not to situation Insight: Poor Judgment: Poor Interventions PRN's used: Nicotine Lozenges Therapeutic interventions: Provided MSE and H&P at bedside; provided therapeutic conversation with active listening, medication administration/education/monitoring, behavior monitoring and intervention as needed; reality orientation, limit setting, distraction, redirection, provided encouragement and positive reinforcement, Q 15 minute safety checks. Restraints/seclusion/emergency medication: N/A Justification of Continued Inpatient Treatment: Patient requires a safe and therapeutic milieu while waiting placement. Patient is LPS conserved.
[2021-02-01] MEDS: quetiapine 100mg tablet PO SCH (20:24)
[2021-02-01] MEDS: divalproex sodium 500mg tablet.DR PO SCH (20:25)
[2021-02-01 20:40] VITALS: BP 120/80
--- NOTE | 2021-02-02 03:31 | NUR ---
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 Pt Public Guardian is Thuy Frost phone number #[phone]. Pt was at [place], and was becoming paranoid about his finances. It was found that $200 of his PNI money was unaccounted for and this escalated the patient. Pt began having outbursts of anger and became increasingly paranoid and delusional towards staff and peers. Assessment What has happened this shift: Received pt up and walking the hallways at change of shift, 1:1 assessment completed, pt states he is doing good and needs a vacation. He stated that he had a BM and that his parts are working down there just not his brain. Hardik seemed to be responding to his voices saying Im getting sick of you as he was walking down the hallway. BETO Fish went and talked with the pt and was able to redirect him. Pt changed into green scrubs and took NOC meds and was seen walking the hallway with headphones. S/I, H/I: Denies A/VH: Denies, although he often is having dialog with someone that is not present Sleep: ADL's: Independent Group attendance: Were Meds taken: Yes Any med S/E: Denies Mental Status Exam Appearance: black shirt with suit coat, jeans and a black baseball cap Eye contact: Fair Behavior: Cooperative. Pt. social with peers and staff. Listening to headphones in his room and watching TV. Speech: Loud, but otherwise WNL. Mood: Euthymic Affect: blunted Thought process: Paranoid delusions. Personalization. Thought Content: Circumstantial. Cognition: A&Ox3 not to situation Insight: Poor Judgment: Poor Interventions PRN's used: Therapeutic interventions: Provided MSE and H&P at bedside; provided therapeutic conversation with active listening, medication administration/education/monitoring, behavior monitoring and intervention as needed; reality orientation, limit setting, distraction, redirection, provided encouragement and positive reinforcement, Q 15 minute safety checks. Restraints/seclusion/emergency medication: N/A Justification of Continued Inpatient Treatment: Patient requires a safe and therapeutic milieu while waiting placement. Patient is LPS conserved.
[2021-02-02] MEDS: NICOTINE POLACRILEX 2 MG LOZENGE BC PRN ×3 (05:42→17:08)
[2021-02-02] MEDS: trihexyphenidyl HCL 5 MG tablet PO SCH ×3 (07:44→20:31)
[2021-02-02] MEDS: LORazepam 0.5 MG tablet PO SCH ×3 (07:44→18:00)
[2021-02-02] MEDS: haloperidol 5mg tablet PO SCH ×4 (07:45→20:32)
[2021-02-02] MEDS: pantoprazole 40mg Tablet.DR PO SCH (07:45)
[2021-02-02] MEDS: atorvastatin 10mg tablet PO SCH (07:45)
[2021-02-02 08:31] VITALS: BP 133/69
--- NOTE | 2021-02-02 18:16 | NUR ---
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 Pt Public Guardian is Thuy Frost phone number #[phone]. Pt was at [place], and was becoming paranoid about his finances. It was found that $200 of his PNI money was unaccounted for and this escalated the patient. Pt began having outbursts of anger and became increasingly paranoid and delusional towards staff and peers. Assessment What has happened this shift: Pt. awake at shift change, and requested AM medications. He takes all prescriptions without incident and attends all meals. Pt states he feels okay but wanting to leave. He jokes with staff and at times because agitated related to his hallucinations and delusions, although pt denies these symptoms. He requested going on the patio today, and a group went to enjoy the sunshine around 330pm. S/I, H/I: Denies A/VH: Denies Sleep: Pt. did not nap on day shift. ADL's: Independent Group attendance: Yes Were Meds taken: Yes Any med S/E: Denies Mental Status Exam Appearance: black shirt with suit coat, jeans and a black baseball cap Eye contact: Fair Behavior: Cooperative, pt. had one outburst today, Pt paces, watches tv, and listens to headphones. He engages with staff and peers alike Speech: Loud, but otherwise WNL. Mood: Euthymic minus an angry outburst today. Affect: Blunted Thought process: Paranoid delusions. Personalization. Thought Content: Circumstantial. Cognition: A&Ox3 not to situation Insight: Poor Judgment: Poor Interventions PRN's used: Nicotine Lozenges Therapeutic interventions: Provided MSE and H&P at bedside; provided therapeutic conversation with active listening, medication administration/education/monitoring, behavior monitoring and intervention as needed; reality orientation, limit setting, distraction, redirection, provided encouragement and positive reinforcement, Q 15 minute safety checks. Restraints/seclusion/emergency medication: N/A Justification of Continued Inpatient Treatment: Patient requires a safe and therapeutic milieu while waiting placement. Patient is LPS conserved.
[2021-02-02 20:00] VITALS: BP 138/86
[2021-02-02] MEDS: divalproex sodium 500mg tablet.DR PO SCH (20:31)
[2021-02-02] MEDS: quetiapine 100mg tablet PO SCH (20:31)
--- NOTE | 2021-02-03 04:24 | NUR ---
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 Pt Public Guardian is Thuy Frost phone number #[phone]. Pt was at [place], and was becoming paranoid about his finances. It was found that $200 of his PNI money was unaccounted for and this escalated the patient. Pt began having outbursts of anger and became increasingly paranoid and delusional towards staff and peers. Assessment What has happened this shift: Pt. up and walking around at change of shift. 1:1 assessment and vitals done at bedside, pt calm and cooperative. Pt stated he had a good day. He stated that he asked ATIF Daley , to him and she declined. He stated that he is going to take her red bull from her and that he wants a red bull out of this. Pt had snacks and was seen engaging in conversation with peers and staff. Pt paced hallways with headphones on for at least half the night. S/I, H/I: Denies A/VH: Denies Sleep: ADL's: Independent Group attendance: Yes Were Meds taken: Yes (pt declining Seroquel) Any med S/E: Denies Mental Status Exam Appearance: black shirt with suit coat, jeans and a black baseball cap Eye contact: Fair Behavior: Cooperative, Pt paces, watches tv, and listens to headphones. He engages with staff and peers alike Speech: Loud, but otherwise WNL. Mood: Euthymic Affect: Blunted Thought process: Paranoid delusions. Personalization. Thought Content: Circumstantial. Cognition: A&Ox3 not to situation Insight: Poor Judgment: Poor Interventions PRN's used: Nicotine Lozenges Therapeutic interventions: Provided MSE and H&P at bedside; provided therapeutic conversation with active listening, medication administration/education/monitoring, behavior monitoring and intervention as needed; reality orientation, limit setting, distraction, redirection, provided encouragement and positive reinforcement, Q 15 minute safety checks. Restraints/seclusion/emergency medication: N/A Justification of Continued Inpatient Treatment: Patient requires a safe and therapeutic milieu while waiting placement. Patient is LPS conserved.
[2021-02-03] MEDS: LORazepam 0.5 MG tablet PO SCH ×3 (07:07→17:18)
[2021-02-03] MEDS: atorvastatin 10mg tablet PO SCH (07:08)
[2021-02-03] MEDS: pantoprazole 40mg Tablet.DR PO SCH (07:08)
[2021-02-03] MEDS: trihexyphenidyl HCL 5 MG tablet PO SCH ×3 (07:08→20:39)
[2021-02-03] MEDS: haloperidol 5mg tablet PO SCH ×4 (07:15→20:40)
[2021-02-03 07:34] VITALS: BP 109/81
[2021-02-03] MEDS: NICOTINE POLACRILEX 2 MG LOZENGE BC PRN ×4 (09:50→20:40)
--- NOTE | 2021-02-03 11:04 | NUR ---
Reassessment: Pt continues with average 75-100% PO intake on regular diet meeting estimated nutrient needs. [facility] 02/01. No nutrition concerns at this time. Will continue to follow. Recommend: 1. Continue regular diet 2. Bowel care as needed 3. Weekly scaled weights Addendum: 02/03/21 at [address] Amended: Links added.
--- NOTE | 2021-02-03 17:37 | NUR ---
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 Pt Public Guardian is hTuy Frost phone number #[phone]. Pt was at [place], and was becoming paranoid about his finances. It was found that $200 of his PNI money was unaccounted for and this escalated the patient. Pt began having outbursts of anger and became increasingly paranoid and delusional towards staff and peers. Assessment What has happened this shift: Pt. awake at shift change, and requested AM medications. He takes all prescriptions without incident and attends all meals. Pt states he feels okay but he is expressing paranoid delusions at a heightened level today, and misinterpreting staff and peers behaviors. He is re-directable via distraction or averting his attention elsewhere but denies these symptoms and became upset when this RN inquired during the MH assessment. Pt calmed towards the end of shift and took a nap. S/I, H/I: Denies A/VH: Became upset when asked about them...pt is observed to be responding to IS Sleep: Took a nap toward the ends of the day. ADL's: Independent Group attendance: Yes Were Meds taken: Yes Any med S/E: Denies Mental Status Exam Appearance: black shirt with suit coat, jeans and a black baseball cap Eye contact: Fair Behavior: Cooperative, pt. had one outburst today, Pt paces, watches tv, and listens to headphones. He engages with staff and peers alike. Speech: Loud, but otherwise WNL. Mood: Euthymic but pt was labile today, and responding to AH with aggressive statements Affect: Blunted Thought process: Paranoid delusions Thought Content: Circumstantial Cognition: A&Ox3 not to situation Insight: Poor Judgment: Poor Interventions PRN's used: Nicotine Lozenges Therapeutic interventions: Provided MSE and H&P at bedside; provided therapeutic conversation with active listening, medication administration/education/monitoring, behavior monitoring and intervention as needed; reality orientation, limit setting, distraction, redirection, provided encouragement and positive reinforcement, Q 15 minute safety checks. Restraints/seclusion/emergency medication: N/A Justification of Continued Inpatient Treatment: Patient requires a safe and therapeutic milieu while waiting placement. Patient is LPS conserved.
[2021-02-03 20:00] VITALS: BP 111/73
[2021-02-03] MEDS: divalproex sodium 500mg tablet.DR PO SCH (20:39)
[2021-02-03] MEDS: quetiapine 100mg tablet PO SCH ×2 (20:40→21:00)
--- NOTE | 2021-02-03 21:58 | NUR ---
Patient has refused his night time Seroquel. He paces the hallways, he tells this music writer "I don't have to take it."
[2021-02-03] MEDS: LORazepam 1 MG tablet PO PRN (23:53)
--- NOTE | 2021-02-04 01:38 | NUR ---
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 Pt Public Guardian is Thuy Frost phone number #[phone]. Pt was at [place], and was becoming paranoid about his finances. It was found that $200 of his PNI money was unaccounted for and this escalated the patient. Pt began having outbursts of anger and became increasingly paranoid and delusional towards staff and peers. Assessment What has happened this shift: Patient primarily isolates in his room, he was up for snacks for a short time. Patient desired and was given a nicotine lozenge, he later complained he swallowed it because it was too small. He states it is this writers fault for giving it to him. Patient is labile and disheveled at times during the evening and early night. Patient refused his night time Seroquel, he states he doesn't like the way it makes him feel. Patient was more labile as the evening went along. He did take PRN Ativan and gradually retired to sleep. At times this patient looked to be responding to internal stimuli in addition to being delusional. S/I, H/I: Denies. A/VH: Denies, looks to be responding to internal stimuli Sleep: Will tally at 0500 ADL's: Independent Group attendance: None on night time nanny Were Meds taken: All, save for Seroquel which he refuses Any med S/E: Denies Mental Status Exam Appearance: black shirt with suit coat, jeans and a black baseball cap Eye contact: Fair Behavior: Isolates in room, irritable and labile on occasion Speech: Loud, but otherwise WNL. Mood: Euthymic but pt was labile today, and responding to AH with aggressive statements Affect: Flat Thought process: Paranoid delusions Thought Content: Circumstantial Cognition: A&Ox3 not to situation Insight: Poor Judgment: Poor Interventions PRN's used: Nicotine Lozenges, Ativan Therapeutic interventions: Provided MSE and H&P at bedside; provided therapeutic conversation with active listening, medication administration/education/monitoring, behavior monitoring and intervention as needed; reality orientation, limit setting, distraction, redirection, provided encouragement and positive reinforcement, Q 15 minute safety checks. Restraints/seclusion/emergency medication: N/A Justification of Continued Inpatient Treatment: Patient requires a safe and therapeutic milieu while waiting placement. Patient is LPS conserved.
[2021-02-04 08:00] VITALS: BP 121/80
[2021-02-04] MEDS: trihexyphenidyl HCL 5 MG tablet PO SCH ×3 (08:30→20:57)
[2021-02-04] MEDS: haloperidol 5mg tablet PO SCH ×4 (08:30→20:58)
[2021-02-04] MEDS: LORazepam 0.5 MG tablet PO SCH ×4 (08:30→17:30)
[2021-02-04] MEDS: atorvastatin 10mg tablet PO SCH (08:30)
[2021-02-04] MEDS: pantoprazole 40mg Tablet.DR PO SCH (08:30)
[2021-02-04] MEDS: NICOTINE POLACRILEX 2 MG LOZENGE BC PRN ×3 (08:36→16:27)
[2021-02-04] MEDS: LORazepam 1 MG tablet PO PRN (16:31)
--- NOTE | 2021-02-04 16:54 | NUR ---
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 Pt Public Guardian is Thuy Frost phone number #[phone]. Pt was at [place], and was becoming paranoid about his finances. It was found that $200 of his PNI money was unaccounted for and this escalated the patient. Pt began having outbursts of anger and became increasingly paranoid and delusional towards staff and peers. Assessment What has happened this shift: Pt continues to respond to internal stimuli accusing patients and staff of "stealing objects, messing up my bed." He half the day being speaking loud and going in and out of being angry. He can be redirected lasting a few minutes until he starts over with accusations and being loud. He follows directions well and is able to calm himself for short periods of a time. S/I, H/I: Denies A/VH: pt is observed to be responding to IS Sleep: Up all shift in and our and up and down ADL's: Independent Group attendance: Yes Were Meds taken: Yes Any med S/E: None noted or reported Mental Status Exam Appearance: same clothes as yesterday (black shirt with suit coat, jeans and a black baseball cap). Eye contact: Fair Behavior: Angry, Loud but cooperative with redirection. Speech: Loud Mood: "Oh, leave me alone." Affect: Blunted Thought process: Paranoid delusions Thought Content: Circumstantial Cognition: A&Ox3 not to situation Insight: Poor Judgment: Poor Interventions PRN's used: Nicotine Lozenges, Ativan x1 Therapeutic interventions: Provided MSE and H&P at bedside; provided therapeutic conversation with active listening, medication administration/education/monitoring, behavior monitoring and intervention as needed; reality orientation, limit setting, distraction, redirection, provided encouragement and positive reinforcement, Q 15 minute safety checks. Restraints/seclusion/emergency medication: N/A Justification of Continued Inpatient Treatment: Patient requires a safe and therapeutic milieu while waiting placement. Patient is LPS conserved. Addendum: 02/04/21 at 1732 by Yari Davison RN @1630 pt asked for an Ativan PRN then refused it once it was scanned and opened. Addendum: 02/04/21 at 1819 by Yari Davison RN Pt put his prescribed Ativan 1.5mg in water and refused to take them. Pills were destroyed after dissolving into the paper medicine cup when this nurse attempted to retrieve them from the water cup. Medication wasted with nurse, MARTINA Pablo and this nurse.
--- NOTE | 2021-02-04 18:49 | NUR ---
Patient paces the halls listening to music, he is not socializing with others.
[2021-02-04 20:00] VITALS: BP 111/78
[2021-02-04] MEDS: quetiapine 100mg tablet PO SCH (20:58)
[2021-02-04] MEDS: divalproex sodium 500mg tablet.DR PO SCH (20:58)
--- NOTE | 2021-02-05 01:18 | NUR ---
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 Pt Public Guardian is Thuy Frost phone number #[phone]. Pt was at [place], and was becoming paranoid about his finances. It was found that $200 of his PNI money was unaccounted for and this escalated the patient. Pt began having outbursts of anger and became increasingly paranoid and delusional towards staff and peers. Assessment What has happened this shift: Patient primarily isolates in his room following shift change. Patient is labile and occasionally yells out complaints. The patient gradually calms. In late evening patient becomes compliant, he agrees to take all his evening medications. The patient later laughs and jokes with this investigative writer. The patient then retired to sleep. S/I, H/I: Denies. 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 Mood: Euthymic Affect: Flat Thought process: Paranoid delusions Thought Content: Circumstantial Cognition: A&Ox3 not to situation Insight: Poor Judgment: Poor Interventions PRN's used: None Therapeutic interventions: Provided MSE and H&P at bedside; provided therapeutic conversation with active listening, medication administration/education/monitoring, behavior monitoring and intervention as needed; reality orientation, limit setting, distraction, redirection, provided encouragement and positive reinforcement, Q 15 minute safety checks. Restraints/seclusion/emergency medication: N/A Justification of Continued Inpatient Treatment: Patient requires a safe and therapeutic milieu while waiting placement. Patient is LPS conserved.
[2021-02-05 07:38] VITALS: BP 101/62
[2021-02-05] MEDS: haloperidol 5mg tablet PO SCH ×4 (07:47→20:14)
[2021-02-05] MEDS: trihexyphenidyl HCL 5 MG tablet PO SCH ×3 (07:47→20:14)
[2021-02-05] MEDS: atorvastatin 10mg tablet PO SCH (07:47)
[2021-02-05] MEDS: pantoprazole 40mg Tablet.DR PO SCH (07:48)
[2021-02-05] MEDS: LORazepam 0.5 MG tablet PO SCH ×4 (07:48→17:30)
[2021-02-05] MEDS ORDERED: LORazepam 1 MG tablet PO ONE (08:50)
[2021-02-05] MEDS ORDERED: diphenhydrAMINE 25mg capsule PO ONE (08:50)
[2021-02-05] MEDS ORDERED: haloperidol 5mg tablet PO ONE (08:50)
[2021-02-05] MEDS ORDERED: diphenhydrAMINE 50 mg/ml inj ONE (10:02)
[2021-02-05] MEDS ORDERED: haloperidol lactate 5mg/ml inj ONE (10:02)
[2021-02-05] MEDS ORDERED: LORazepam 2 mg/ml vial ONE (10:03)
--- NOTE | 2021-02-05 10:12 | NUR ---
Agitation: Pt shouting and screaming and profane and accusing staff of "Trying to Fuck me up the ass". Pt then takes off his clothes to make "Fucking me in my ass easier". PT offered oral medications to calm down but refuses. Pulled out IM Benadryl 50mg, Ativan 1mg, and Haldol 5mg. Pt put his clothes back on but pulled pants down for the IM shot and accepted the shot without resistance prior to security arriving. Pt ambulates to group room sitting watching TV.
[2021-02-05] MEDS: NICOTINE POLACRILEX 2 MG LOZENGE BC PRN ×2 (11:53→18:30)
--- NOTE | 2021-02-05 16:08 | NUR ---
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 Pt Public Guardian is Thuy Frost phone number #[phone]. Pt was at [place], and was becoming paranoid about his finances. It was found that $200 of his PNI money was unaccounted for and this escalated the patient. Pt began having outbursts of anger and became increasingly paranoid and delusional towards staff and peers. Assessment What has happened this shift: Pt refused to take morning medications referring to this nurse as "a METH addict." He paced the halls slandering and yelling at other patients as he went down the phillips. Pt was redirected back to his room so others sleeping could continue to sleep and to talk to staff about his behavior. Pt refused moving into the main room at which time he challenged staff MARTINA Forrest and RUPERT Curry by taking off his shirt saying, "I'll fight you, come on." Provider DIOGENES Sims notified of pt's behavior upsetting others on the unit and making threats to staff. Emergent Meds ordered both orals to be offered to pt and IM medications if pt refused and remained threatening. Pt refused oral medicines. When the IM injections were brought to his room and he was asked to lay down and roll to the side he continued standing turned around, spread his legs, pulled his pants down to the ground and bent over. He then said, "go ahead rape me." Pt sat in a chair in his room for awhile then came out and again began yelling and making delusional threats. This time when approached and redirected he was able to quiet down but later refused his 1300 Ativan. After taking Haldol and Artane pt went to his room and fell asleep. He is still sleeping. Consult with provider, Kamaljit Villaseñor. Per Kamaljit he will talk to pt. S/I, H/I: Denies A/VH: pt is appears to be responding to IS Sleep: Slept after lunch ADL's: Independent Group attendance: N/A Were Meds taken: Yes; will not take the Ativan 1.5mg doses. Any med S/E: None noted or reported Mental Status Exam Appearance: same clothes as yesterday (black shirt with suit coat, jeans and a black baseball cap). Eye contact: Fair Behavior: Angry, Loud and uncooperative up until 1300. Speech: Loud Mood: Angry calling people names Affect: Blunted Thought process: Paranoid delusions Thought Content: Circumstantial Cognition: A&Ox3 not to situation Insight: Poor Judgment: Poor Interventions PRN's used: Nicotine Lozenges, Ativan 1mg IM, Haldol 5mg IM, and Benadryl 50mg IM Therapeutic interventions: Provided MSE and physical at bedside; provided therapeutic conversation with active listening, medication administration/education/monitoring, behavior monitoring and intervention as needed; reality orientation, limit setting, distraction, redirection, provided encouragement and positive reinforcement, Q 15 minute safety checks. Restraints/seclusion/emergency medication: N/A Justification of Continued Inpatient Treatment: Patient requires a safe and therapeutic milieu while waiting placement. Patient is LPS conserved.
[2021-02-05 20:00] VITALS: BP 121/77
[2021-02-05] MEDS: divalproex sodium 500mg tablet.DR PO SCH (20:14)
[2021-02-05] MEDS: LORazepam 1 MG tablet PO PRN (21:18)
[2021-02-05] MEDS: quetiapine 100mg tablet PO SCH (21:38)
--- NOTE | 2021-02-06 03:42 | NUR ---
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 Pt Public Guardian is Thuy Frost phone number #[phone]. Pt was at [place], and was becoming paranoid about his finances. It was found that $200 of his PNI money was unaccounted for and this escalated the patient. Pt began having outbursts of anger and became increasingly paranoid and delusional towards staff and peers. Assessment What has happened this shift: The patient was seen in his room lying down at shift change. He stayed there until snack time, when he came to community room to eat. The patient was in a good mood at this time. He took his HS meds, Seroquel reluctantly. The patient wishes it was made a PRN, and would rather just use the Haldol for sleep. After med pass, the patient stopped this junior copywriter in the phillips outside the observation room. He accused this junior copywriter of thinking he doesn't anything in his head (points to head). This junior copywriter denied thinking this, then he stomped off to his room. A few minutes later, he came back and apologized for yelling at me. He has been in his room asleep since then. S/I, H/I: Denies. A/VH: Denies, but appears to RIS at times. 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 Any med S/E: None reported or observed. Mental Status Exam Appearance: black shirt with suit coat, jeans and a black baseball cap Eye contact: Fair Behavior: Isolates in room, irritable and labile on occasion Speech: Loud, but otherwise WNL. Mood: Euthymic Affect: Flat Thought process: Paranoid delusions Thought Content: Circumstantial Cognition: A&Ox3 not to situation Insight: Poor Judgment: Poor Interventions PRN's used: None Therapeutic interventions: Provided MSE and H&P at bedside; provided therapeutic conversation with active listening, medication administration/education/monitoring, behavior monitoring and intervention as needed; reality orientation, limit setting, distraction, redirection, provided encouragement and positive reinforcement, Q 15 minute safety checks. Restraints/seclusion/emergency medication: N/A Justification of Continued Inpatient Treatment: Patient requires a safe and therapeutic milieu while waiting placement. Patient is LPS conserved.
[2021-02-06] MEDS: NICOTINE POLACRILEX 2 MG LOZENGE BC PRN ×4 (07:26→18:37)
[2021-02-06] MEDS: trihexyphenidyl HCL 5 MG tablet PO SCH ×3 (07:27→20:09)
[2021-02-06] MEDS: haloperidol 5mg tablet PO SCH ×4 (07:27→20:10)
[2021-02-06] MEDS: atorvastatin 10mg tablet PO SCH (07:27)
[2021-02-06] MEDS: LORazepam 0.5 MG tablet PO SCH ×2 (07:27→07:34)
[2021-02-06] MEDS: pantoprazole 40mg Tablet.DR PO SCH (07:38)
[2021-02-06 07:52] VITALS: BP 108/54
[2021-02-06] MEDS ORDERED: haloperidol 5mg tablet PO PRN (10:25)
--- NOTE | 2021-02-06 12:06 | NUR ---
BILL Dye's Public Guardian, Katie, called to report that she followed up on Hardik's glasses. She reported [facility] is taking a long time to process the request and his new glasses should be available by the end of February. Endocrinology Nurse will apprise Hardik. LEXIE Squires
--- NOTE | 2021-02-06 14:47 | NUR ---
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 Pt Public Guardian is Thuy Frost phone number #[phone]. Pt was at [place], and was becoming paranoid about his finances. It was found that $200 of his PNI money was unaccounted for and this escalated the patient. Pt began having outbursts of anger and became increasingly paranoid and delusional towards staff and peers. Assessment What has happened this shift: Pt again refused his Ativan. Scheduled Ativan discontinued. PRN order for Haldol 10mg and Ativan 1mg for agitation may repeat Ativan: SEE NEW ORDERS. Pt educated on possible SE from quitting the benzodiazepines and not tapering off from the Ativan. He acknowledges understanding and agrees to ask staff for the PRN Ativan if needed. S/I, H/I: Denies A/VH: pt appears to respond to IS Sleep: Did not nap today ADL's: Independent Group attendance: N/A Were Meds taken: Yes; refused schedules Ativan agrees to ask for PRN if needed Any med S/E: None noted or reported Mental Status Exam Appearance: same clothes as yesterday (black shirt with suit coat, jeans and a black baseball cap). Eye contact: Fair Behavior: Paranoid; yet with explanation comply's after becoming angry Speech: Not as loud today Mood: Quiet most of the day Affect: Blunted Thought process: Paranoid delusions Thought Content: Circumstantial Cognition: A&Ox3 not to situation Insight: Poor Judgment: Poor Interventions PRN's used: Nicotine Lozenges Therapeutic interventions: Provided MSE and physical at bedside; provided therapeutic conversation with active listening, medication administration/education/monitoring, behavior monitoring and intervention as needed; reality orientation, limit setting, distraction, redirection, provided encouragement and positive reinforcement, Q 15 minute safety checks. Restraints/seclusion/emergency medication: N/A Justification of Continued Inpatient Treatment: Patient requires a safe and therapeutic milieu while waiting placement. Patient is LPS conserved.
[2021-02-06] MEDS: LORazepam 1 MG tablet PO PRN (16:30)
[2021-02-06] MEDS: quetiapine 100mg tablet PO SCH (20:10)
[2021-02-06] MEDS: divalproex sodium 500mg tablet.DR PO SCH (20:10)
[2021-02-06 20:16] VITALS: BP 120/82
--- NOTE | 2021-02-07 03:23 | NUR ---
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 Pt Public Guardian is Thuy Frost phone number #[phone]. Pt was at [place], and was becoming paranoid about his finances. It was found that $200 of his PNI money was unaccounted for and this escalated the patient. Pt began having outbursts of anger and became increasingly paranoid and delusional towards staff and peers. Assessment What has happened this shift: The patient was in the rec room watching a show with other clients. He was laughing at something said on the tv. He was in a good mood tonight...pleasant and cooperative. His thoughts and speech were mostly linear, without tangents, paranoia, accusations, or delusions voiced. No outbursts or aggressive behaviors observed. During HS med pass, he said he didn't want Seroquel, but was told we might have to go a different route. He said, "well, we can't have that", then took the medication. He has been asleep all night. S/I, H/I: Denies. A/VH: Denies, but appears to RIS at times. Sleep: See sleep assessment ADL's: Independent Group attendance: None on awake overnight counselor Were Meds taken: Yes. Any med S/E: None reported or observed. Mental Status Exam Appearance: black shirt with suit coat, jeans and a black baseball cap Eye contact: Fair Behavior: Isolates in room, calm and cooperative with nursing Speech: Loud, but otherwise WNL. Mood: Euthymic Affect: Flat Thought process: Paranoid delusions Thought Content: Circumstantial Cognition: A&Ox3 not to situation Insight: Poor Judgment: Poor Interventions PRN's used: None Therapeutic interventions: Provided MSE and H&P at bedside; provided therapeutic conversation with active listening, medication administration/education/monitoring, behavior monitoring and intervention as needed; reality orientation, limit setting, distraction, redirection, provided encouragement and positive reinforcement, Q 15 minute safety checks. Restraints/seclusion/emergency medication: N/A Justification of Continued Inpatient Treatment: Patient requires a safe and therapeutic milieu while waiting placement. Patient is LPS conserved.
[2021-02-07] MEDS: haloperidol 5mg tablet PO SCH ×4 (07:24→20:16)
[2021-02-07] MEDS: trihexyphenidyl HCL 5 MG tablet PO SCH ×3 (07:25→20:16)
[2021-02-07] MEDS: pantoprazole 40mg Tablet.DR PO SCH (07:25)
[2021-02-07] MEDS: atorvastatin 10mg tablet PO SCH (07:25)
[2021-02-07] MEDS: acetaminophen 325mg tablet PO PRN ×2 (07:26→15:35)
[2021-02-07] MEDS: NICOTINE POLACRILEX 2 MG LOZENGE BC PRN ×6 (07:27→23:49)
[2021-02-07] MEDS: LORazepam 1 MG tablet PO PRN (08:41)
[2021-02-07 09:57] VITALS: BP 99/64
--- NOTE | 2021-02-07 15:53 | NUR ---
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 Pt Public Guardian is Thuy Frost phone number #[phone]. Pt was at [place], and was becoming paranoid about his finances. It was found that $200 of his PNI money was unaccounted for and this escalated the patient. Pt began having outbursts of anger and became increasingly paranoid and delusional towards staff and peers. Assessment What has happened this shift: Patient was asleep at change of shift but up soon after. Patient took his medications as prescribed and was happy this morning. Patient laughed and joked with staff all day. Once patient got loud and RN offered patient 1 mg of Ativan and patient said he wanted it. Other than that patient was great all day. Patient was able to go outside which he enjoyed. Patient also chatting with peers. Patient denies SI/HI and Denies hearing voices though when patient yells out it is usually responding to a voice. Patient does have delusional thinking but has been happy all day. S/I, H/I: Denies A/VH: Denies but does appear to respond to I.S. Sleep: Up all day ADL's: Independent Group attendance: N/A Were Meds taken: Yes Any med S/E: None noted or reported Mental Status Exam Appearance: black shirt with jeans and a black baseball cap. Eye contact: Good Behavior: Pleasant and playful Speech: Normal with one bout of yelling Mood: Pleasant Affect: Happy Thought process: Some delusions Thought Content: Circumstantial Cognition: A&Ox3 not to situation Insight: Poor Judgment: Poor Interventions PRN's used: Nicotine Lozenges. Tylenol, Ativan x 1 Therapeutic interventions: Provided MSE and physical at bedside; provided therapeutic conversation with active listening, medication administration/education/monitoring, behavior monitoring and intervention as needed; reality orientation, limit setting, distraction, redirection, provided encouragement and positive reinforcement, Q 15 minute safety checks. Restraints/seclusion/emergency medication: N/A Justification of Continued Inpatient Treatment: Patient requires a safe and therapeutic milieu while waiting placement. Patient is LPS conserved.
[2021-02-07] MEDS: carbamide peroxide 15ml bottle EACH EAR SCH (20:16)
[2021-02-07] MEDS: quetiapine 100mg tablet PO SCH ×2 (20:16→23:49)
[2021-02-07] MEDS: divalproex sodium 500mg tablet.DR PO SCH (20:16)
[2021-02-07 20:17] VITALS: BP 120/83
--- NOTE | 2021-02-07 22:31 | NUR ---
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 Pt Public Guardian is Thuy Frost phone number #[phone]. Pt was at [place], and was becoming paranoid about his finances. It was found that $200 of his PNI money was unaccounted for and this escalated the patient. Pt began having outbursts of anger and became increasingly paranoid and delusional towards staff and peers. Assessment What has happened this shift: Pt was in a pleasant mood at change of shift, although anxious. Pt requested a nicotine lozenge and joked with staff. Pt continues to have delusions and is seen talking to himself at times, pt spends time wearing head phones. Pt is med compliant and c/o wax in his ears and states its worse in his left ear. Pt asked for a nicotine lozenge shortly after having his last lozenge and was told it was too soon and he became agitated and stormed off to bed. S/I, H/I: Denies A/VH: Denies but appears to respond to I.S. Sleep: see sleep hours ADL's: Independent Group attendance: N/A Were Meds taken: Yes Any med S/E: None noted or reported Mental Status Exam Appearance: black shirt with jeans and a black baseball cap. Eye contact: Good Behavior: Pleasant and playful Speech: Normal with one bout of yelling Mood: Pleasant Affect: labile Thought process: Some delusions Thought Content: Circumstantial Cognition: A&Ox3 not to situation Insight: Poor Judgment: Poor Interventions PRN's used: Nicotine Lozenges. Tylenol, Ativan x 1 Therapeutic interventions: Provided MSE and physical at bedside; provided therapeutic conversation with active listening, medication administration/education/monitoring, behavior monitoring and intervention as needed; reality orientation, limit setting, distraction, redirection, provided encouragement and positive reinforcement, Q 15 minute safety checks. Restraints/seclusion/emergency medication: N/A Justification of Continued Inpatient Treatment: Patient requires a safe and therapeutic milieu while waiting placement. Patient is LPS conserved.
[2021-02-08] MEDS: atorvastatin 10mg tablet PO SCH (08:04)
[2021-02-08] MEDS: pantoprazole 40mg Tablet.DR PO SCH (08:04)
[2021-02-08] MEDS: trihexyphenidyl HCL 5 MG tablet PO SCH ×3 (08:05→20:19)
[2021-02-08] MEDS: haloperidol 5mg tablet PO SCH ×4 (08:06→20:19)
[2021-02-08] MEDS: carbamide peroxide 15ml bottle EACH EAR SCH ×2 (08:09→20:19)
[2021-02-08] MEDS: NICOTINE POLACRILEX 2 MG LOZENGE BC PRN ×5 (08:40→20:19)
[2021-02-08 08:42] VITALS: BP 101/57
--- NOTE | 2021-02-08 09:50 | NUR ---
PLACEMENT UPDATE Accepted to [facility] pending a bed, no upcoming discharges. LEXIE Squires
--- NOTE | 2021-02-08 13:05 | NUR ---
PLACEMENT UPDATE Sent last 2 weeks of notes to [facility] office for placement purposes. LEXIE Squires
--- NOTE | 2021-02-08 15:25 | NUR ---
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 Pt Public Guardian is Thuy Frost phone number #[phone]. Pt was at [place], and was becoming paranoid about his finances. It was found that $200 of his PNI money was unaccounted for and this escalated the patient. Pt began having outbursts of anger and became increasingly paranoid and delusional towards staff and peers. Assessment What has happened this shift: Patient was asleep at change of shift but up soon after. Patient was again happy and chatting with staff and peers. Patient was found laying in bed talking out loud to nobody saying "Don't put the cucumber in the eel! It's cruel!". Patient then saw RN and he said to RN, "He'll turn green!". And then he laughs. Patient pacing the halls. watching T.V. with peers in the Rec Room. No distress observed in patient. Patient pending placement in [facility]. S/I, H/I: Denies A/VH: Denies but does appear to responding to I.S. Sleep: Up all day ADL's: Independent Group attendance: N/A Were Meds taken: Yes Any med S/E: None noted or reported Mental Status Exam Appearance: black shirt with jeans and a black baseball cap. Eye contact: Good Behavior: Pleasant and playful Speech: Normal with one bout of yelling Mood: Pleasant Affect: Happy Thought process: Some delusions Thought Content: Circumstantial Cognition: A&Ox3 not to situation Insight: Poor Judgment: Poor Interventions PRN's used: Nicotine Lozenges. Therapeutic interventions: Provided MSE and physical at bedside; provided therapeutic conversation with active listening, medication administration/education/monitoring, behavior monitoring and intervention as needed; reality orientation, limit setting, distraction, redirection, provided encouragement and positive reinforcement, Q 15 minute safety checks. Restraints/seclusion/emergency medication: N/A Justification of Continued Inpatient Treatment: Patient requires a safe and therapeutic milieu while waiting placement. Patient is LPS conserved.
[2021-02-08] MEDS: divalproex sodium 500mg tablet.DR PO SCH (20:19)
[2021-02-08] MEDS: quetiapine 100mg tablet PO SCH (20:19)
[2021-02-08 20:40] VITALS: BP 146/94
--- NOTE | 2021-02-08 22:02 | NUR ---
Nursing Progress Note Legal hold: LPS Client on involuntary status for GD Report received from nurse, MARTINA Redmond with use of SBAR Why are they here: Patient is LPS conserved and has a hx of schizoaffective disorder and PICA. Pt Public Guardian is Thuy Frost phone number #[phone]. Pt was at [place], and was becoming paranoid about his finances. It was found that $200 of his PNI money was unaccounted for and this escalated the patient. Pt began having outbursts of anger and became increasingly paranoid and delusional towards staff and peers. Assessment What has happened this shift: Pt was in the hallway at change of shift, he is smiling and in a pleasant mood. Pt states "I dont have much going on upstairs anymore, because there's bats in the belfry!" pt laughs and jokes. Pt states "I feel bad because I'm just not donating to [employer] enough! I dont contribute!" Assured patient that he contributes in other ways such as telling us jokes at night. Pt laughed and agreed. Pt talks about being able to read baby's minds and other people's minds, but he can't read minds of people who wear glasses. Pt is med compliant and received his ear drops after having a snack. Pt spent time walking in the halls before going to bed. S/I, H/I: Denies A/VH: Denies Sleep: see sleep hours ADL's: Independent Group attendance: N/A Were Meds taken: Yes Any med S/E: None noted or reported Mental Status Exam Appearance: black shirt with jeans and a black baseball cap. Eye contact: Good Behavior: Pleasant and jovial Speech: Normal rate and rhythm Mood: Pleasant Affect: Happy Thought process: delusional Thought Content: Circumstantial Cognition: A&Ox3 not to situation Insight: Poor Judgment: Poor Interventions PRN's used: Nicotine Lozenges. Therapeutic interventions: Provided MSE and physical at bedside; provided therapeutic conversation with active listening, medication administration/education/monitoring, behavior monitoring and intervention as needed; reality orientation, limit setting, distraction, redirection, provided encouragement and positive reinforcement, Q 15 minute safety checks. Restraints/seclusion/emergency medication: N/A Justification of Continued Inpatient Treatment: Patient requires a safe and therapeutic milieu while waiting placement. Patient is LPS conserved.
[2021-02-09] MEDS: haloperidol 5mg tablet PO SCH ×4 (07:17→20:23)
[2021-02-09] MEDS: atorvastatin 10mg tablet PO SCH (07:17)
[2021-02-09] MEDS: trihexyphenidyl HCL 5 MG tablet PO SCH ×3 (07:17→20:24)
[2021-02-09] MEDS: pantoprazole 40mg Tablet.DR PO SCH (07:17)
[2021-02-09] MEDS: carbamide peroxide 15ml bottle EACH EAR SCH ×2 (07:18→20:28)
[2021-02-09 08:00] VITALS: BP 98/60
[2021-02-09] MEDS: NICOTINE POLACRILEX 2 MG LOZENGE BC PRN ×4 (09:01→20:24)
--- NOTE | 2021-02-09 13:38 | NUR ---
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 Pt Public Guardian is Thuy Frost phone number #[phone]. Pt was at [place], and was becoming paranoid about his finances. It was found that $200 of his PNI money was unaccounted for and this escalated the patient. Pt began having outbursts of anger and became increasingly paranoid and delusional towards staff and peers. Assessment What has happened this shift: Patient was up before breakfast and cooperative with medications. Debrox ear drops were instilled per orders. Pt shaved today. Pt likes to wear a cloth face mask. Pt has been pleasant and cooperative with staff today. Pt did have a few verbal altercations with an intrusive male peer though was easily redirectable. Pt is delusional and tangential, appears to be thought blocking at times. Pt stated "I'm broke" then went on to describe how penniless he is. Pt states that he has social security part B. Asked pt what the part B meant, pt stated, "brain cancer." Pt stated that his aunt is the rich one with lots of money and she will leave her money to him because he is the responsible one unlike his brother who is a with a who is never satisfied with what they have. Pt stated that he has to keep his voice down then began whispering. Reassured pt that he was not being too loud today. Pt spoke about bands he has seen, [employer] and [employer]. Pt was speaking of the first [employer] lead armijo Akin Herrera then said, "they invented the Suburu you know? Or at least marketed it." Pt c/o 8/10 right shoulder pain this morning while the tech was taking his vital signs. When this nurse asked about it, pt denied pain and PRN Tylenol. S/I, H/I: Pt denies. A/VH: Pt denies. Sleep: Pt slept 8 hours last night per noc shift report, pt has not napped today. ADL's: Independent Group attendance: N/A Were Meds taken: Yes Any med S/E: None noted or reported Mental Status Exam Appearance: Older pale/sallow skinned man with greying brown hair dressed in a silver suit, hiking boots, a baseball cap and a blue cloth mask. Eye contact: Good Behavior: Pleasant and cooperative with staff, argumentative with an intrusive male peer. Speech: Clear, audible, slow speaking, can be loud at times. Mood: Good Affect: Blunted Thought process: Tangential, delusional, circumstantial, perseverative, ruminative. Thought Content: Ruminates on money and family dynamics, likes heavy metal music. Cognition: A/O X 3 with delusions/reality distortion. Insight: Fair Judgment: Poor Interventions PRN's used: Nicotine Lozenges. Therapeutic interventions: 1:1 assessment, therapeutic conversation with active listening, medication administration/education/monitoring, behavior monitoring and intervention as needed; reality orientation, limit setting, distraction, redirection, provided encouragement and positive reinforcement, Q 15 minute safety checks. Restraints/seclusion/emergency medication: N/A Justification of Continued Inpatient Treatment: Patient is LPS conserved. Patient requires a safe and therapeutic milieu while awaiting placement, pt has been accepted at [facility] but they currently have no beds available.
[2021-02-09 19:49] VITALS: BP 136/83
[2021-02-09] MEDS: acetaminophen 325mg tablet PO PRN (20:23)
[2021-02-09] MEDS: divalproex sodium 500mg tablet.DR PO SCH (20:23)
[2021-02-09] MEDS: quetiapine 100mg tablet PO SCH (20:24)
--- NOTE | 2021-02-10 05:41 | NUR ---
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 Pt public guardian is Thuy Bentley phone number # [phone]. Pt was at [place], and was becoming paranoid about his finances. It was found that $200 of his PNI money was unaccounted for and this escalated the patient. Pt began having outbursts of anger and became increasingly paranoid and delusional towards staff and peers. Assessment What has happened this shift: Patient observed sitting in chair in hallway and observing the unit at the beginning of shift. Pleasant and cooperative with care; compliant with medication. PRN Nicotine lozenge provided upon request. Patient denies SI, HI, A/VH. He does not appear to be responding to IS and no delusional thought content expressed this shift. Patient observed sleeping and does not appear to be having difficulty. S/I, H/I: Denies A/VH: Denies Sleep: Refer to sleep assessment ADL's: Independent Group attendance: NA Were meds taken: Yes Any med S/E: None observed or reported Mental Status Exam Appearance: Neat, clean and appropriately dressed. Eye contact: Good Behavior: Pleasant and cooperative, pacing, listening to headphones, isolative to self Speech: Clear, audible Mood: Euthymic Affect: Congruent to mood Thought process: Circumstantial; no delusions expressed this shift. Thought Content: Meeting needs, red area on his nose Cognition: A/Ox4 Insight: Fair Judgment: Poor Interventions PRN's used: Nicotine lozenge Therapeutic interventions: 1:1 assessment, establishment of rapport, therapeutic conversation, active listening, ensured contract for safety, behavior monitoring and intervention as needed; reality orientation, verbal de-escalation, limit setting, distraction redirection, elopement prevention, provided positive reinforcement, Q 15 minute safety checks. Restraints/seclusion/emergency medication: N/A Justification of Continued Inpatient Treatment: Pt needs crisis interruption and placement in a safe and therapeutic environment until stable.
[2021-02-10] MEDS: haloperidol 5mg tablet PO SCH ×4 (07:34→20:52)
[2021-02-10] MEDS: trihexyphenidyl HCL 5 MG tablet PO SCH ×3 (07:34→20:52)
[2021-02-10] MEDS: NICOTINE POLACRILEX 2 MG LOZENGE BC PRN ×3 (07:35→19:29)
[2021-02-10] MEDS: atorvastatin 10mg tablet PO SCH (07:35)
[2021-02-10] MEDS: pantoprazole 40mg Tablet.DR PO SCH (07:35)
[2021-02-10 08:00] VITALS: BP 114/80
--- NOTE | 2021-02-10 08:08 | NUR ---
PLACEMENT UPDATE [facility] had accepted Charlie. Acceptance cancelled due to the following. He is exhibiting symptoms similar to when he was here last, and I was told we had a lot (and I mean a lot) of issues with this client, so our team said they feel if we brought him in now, that we would have the same sort of issues. What we are trying to avoid is having to send the client out, so they would like to see a longer period of stabilization before admitting now. LEXIE Squires
[2021-02-10] MEDS: carbamide peroxide 15ml bottle EACH EAR SCH ×2 (08:13→20:53)
[2021-02-10] MEDS: LORazepam 1 MG tablet PO PRN (14:18)
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
[2021-02-10] MEDS ORDERED: OLANZapine **IM** 10 mg inj. IM ONE (17:31)
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
[2021-02-10 19:00] VITALS: BP 116/66
[2021-02-10] MEDS: acetaminophen 325mg tablet PO PRN (19:30)
[2021-02-10] MEDS: divalproex sodium 500mg tablet.DR PO SCH (20:52)
[2021-02-10] MEDS: quetiapine 100mg tablet PO SCH (20:52)
--- NOTE | 2021-02-11 05:30 | NUR ---
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 Pt Public Guardian is Thuy Frost phone number #[phone]. Pt was at [place], and was becoming paranoid about his finances. It was found that $200 of his PNI money was unaccounted for and this escalated the patient. Pt began having outbursts of anger and became increasingly paranoid and delusional towards staff and peers. Assessment What has happened this shift: Patient exhibited some mild labile behavior following shift change. Patient reported to have had an outburst with probable psychotic behavior prior to shift production associate. He had received sedation. Patient calmed and went to sleep shortly after shift production associate. Patient awoke for night time medications, he is quiet and medication compliant. Patient ate a sandwich and returned to sleep. S/I, H/I: Pt denies. A/VH: Pt denies. Sleep: Will tally at 0500 hours ADL's: Independent Group attendance: No groups on shift production associate Were Meds taken: Yes, patient is medication compliant Any med S/E: None noted or reported Mental Status Exam Appearance: [place] contact: Good Behavior: Cooperative and sedate Speech: Clear, soft, regular rate and rhythm Mood: Irritable, angry Affect: Flat Thought process: Paranoia, delusional Thought Content: Does not discuss Cognition: A/O X 3 with delusions/reality distortion. Insight: Poor Judgment: Poor Interventions PRN's used: Therapeutic interventions: 1:1 assessment, therapeutic conversation with active listening, medication administration/education/monitoring, behavior monitoring and intervention as needed; reality orientation, verbal de-escalation, show of support, limit setting, distraction, redirection, provided encouragement and positive reinforcement, Q 15 minute safety checks. Restraints/seclusion/emergency medication: N/A Justification of Continued Inpatient Treatment: Patient is LPS conserved. Patient requires a safe and therapeutic milieu while awaiting placement.
[2021-02-11] MEDS: divalproex 250mg tablet, delayed-release PO SCH (07:26)
[2021-02-11] MEDS: haloperidol 5mg tablet PO SCH ×4 (07:26→21:17)
[2021-02-11] MEDS: pantoprazole 40mg Tablet.DR PO SCH (07:27)
[2021-02-11] MEDS: trihexyphenidyl HCL 5 MG tablet PO SCH ×3 (07:27→21:16)
[2021-02-11] MEDS: atorvastatin 10mg tablet PO SCH (07:28)
[2021-02-11] MEDS: NICOTINE POLACRILEX 2 MG LOZENGE BC PRN ×4 (07:32→14:36)
[2021-02-11 07:40] VITALS: BP 114/61
[2021-02-11] MEDS: carbamide peroxide 15ml bottle EACH EAR SCH ×2 (08:00→20:00)
[2021-02-11] MEDS: LORazepam 1 MG tablet PO PRN ×2 (11:39→23:21)
[2021-02-11] MEDS: haloperidol 5mg tablet PO PRN (11:39)
[2021-02-11] MEDS: acetaminophen 325mg tablet PO PRN (14:36)
[2021-02-11] MEDS ORDERED: olanzapine 10mg tablet PO ONE (15:05)
--- NOTE | 2021-02-11 15:37 | NUR ---
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 Pt Public Guardian is Thuy Frost phone number #[phone]. Pt was at [place], and was becoming paranoid about his finances. It was found that $200 of his PNI money was unaccounted for and this escalated the patient. Pt began having outbursts of anger and became increasingly paranoid and delusional towards staff and peers. Assessment What has happened this shift: Pt approached this RN to request a nicotine lozenge before breakfast. Pt stated, "I wanna try and start the day out right and have a good day today." Instilled Debrox drops in pt's ears after breakfast and placed cotton balls in ears temporarily. When went to place a cotton ball in one of his ears pt stated, "that's the tight one, at least I can hear out of it" pt then laughed maniacally. When asked pt when he had his last BM he replied, "yesterday...I didn't like it." Assessed for constipation, asked pt if his BM was hard, asked pt if he would like some prune juice or MOM. Pt replied, "no, I'm just gonna take it straight up the ass today" then more maniacal laughter. Pt was later heard talking to himself in the hallway near the nurses' station stating, "I'll sign my name Hardik hogan." Pt sat in the rec room listening to music videos for awhile today. He became confrontational, argumentative, and accusatory with a male peer also sitting in the room. Reality orientation and limit setting utilized. Explained to patient what the unacceptable behavior was and gave him a choice of sitting quietly and watching TV or leaving the rec room. Offered pt a PRN. Pt clamped his lips shut, crossed his arms, and was quiet. A short time later pt began yelling and was oppositional with staff. He was difficult to redirect and verbal de-escalation was ineffective. In the midst of his rant he stated, "I need an Ativan." Pt was medicated with PRN Ativan 2 mg and Haldol 10 mg at 1139. He took the meds but then continued to yell and not cooperate with staff. Security was called as a show of support. Pt calmed down and sat quietly in the community room watching TV. Pt approached this RN to request PRN Tylenol for 8/10 right shoulder pain and to request a nicotine lozenge as well. He was given both at 1436 with good effect. Pt met with psychiatrist Dr Davison and a one time dose of Zyprexa 10 mg was ordered and given at 1515. Pt has new orders for routine Zyprexa 20 mg HS and 10 mg daily. Pt acknowledged to this RN that he felt the Zyprexa he received yesterday was helpful. S/I, H/I: Pt denies. A/VH: Pt denies. Sleep: Pt slept 9 hours last night per noc shift report. ADL's: Independent Group attendance: No groups today. Were Meds taken: Yes Any med S/E: None noted or reported Mental Status Exam Appearance: Older pale/sallow skinned man with greying brown hair and glasses dressed in jeans and a purple t-shirt. Eye contact: Good Behavior: Brief periods of loud, argumentative, delusional statements directed towards a male peer and staff alternating with pleasant cooperation and statements of wanting to do better. Speech: Clear, audible, loud at times. Mood: Labile Affect: Labile Thought process: Paranoid, bizarre, delusional, perseverative Thought Content: Fixates on anal humor at times, wants to have a better day. Cognition: A/O X 3 with delusions/reality distortion. Insight: Poor Judgment: Poor Interventions PRN's used: Nicotine Lozenges, Ativan 2 mg, Haldol 10 mg. Therapeutic interventions: 1:1 assessment, therapeutic conversation with active listening, medication administration/education/monitoring, behavior monitoring and intervention as needed; reality orientation, verbal de-escalation, show of support, limit setting, distraction, redirection, provided encouragement and positive reinforcement, Q 15 minute safety checks. Restraints/seclusion/emergency medication: N/A Justification of Continued Inpatient Treatment: Patient is LPS conserved. Patient requires a safe and therapeutic milieu while awaiting placement.
[2021-02-11 20:00] VITALS: BP 111/66
[2021-02-11] MEDS: quetiapine 100mg tablet PO SCH ×2 (21:17→23:22)
[2021-02-11] MEDS: divalproex sodium 500mg tablet.DR PO SCH (21:18)
[2021-02-11] MEDS: olanzapine 10mg tablet PO SCH (21:20)
--- NOTE | 2021-02-12 03:45 | NUR ---
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 Pt Public Guardian is Thuy Frost phone number #[phone]. Pt was at [place], and was becoming paranoid about his finances. It was found that $200 of his PNI money was unaccounted for and this escalated the patient. Pt began having outbursts of anger and became increasingly paranoid and delusional towards staff and peers. Assessment What has happened this shift: The patient was in his bed sleeping at shift change. He declined to get up for snack time. The patient was woke for HS med pass, and was compliant, but subdued. He just wanted his medication and ear drops. A while later, the patient comes to this nurse and states that he can't sleep. He was given a second 100 mg of Seroquel, and 1 mg of Ativan. They had good effect, and he has been asleep since then. S/I, H/I: Denies. A/VH: Denies. 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 Any med S/E: None reported or observed. Mental Status Exam Appearance: Sleepy, disheveled man wearing street clothes. Eye contact: Good Behavior: Cooperative and sedate Speech: Clear. Mood: Irritable, angry Affect: Flat Thought process: Paranoia, delusional Thought Content: Does not discuss Cognition: A/O X 3 with delusions/reality distortion. Insight: Poor Judgment: Poor Interventions PRN's used: Seroquel, Ativan. Therapeutic interventions: 1:1 assessment, therapeutic conversation with active listening, medication administration/education/monitoring, behavior monitoring and intervention as needed; reality orientation, verbal de-escalation, show of support, limit setting, distraction, redirection, provided encouragement and positive reinforcement, Q 15 minute safety checks. Restraints/seclusion/emergency medication: N/A Justification of Continued Inpatient Treatment: Patient is LPS conserved. Patient requires a safe and therapeutic milieu while awaiting placement.
[2021-02-12 07:55] VITALS: BP 100/56
[2021-02-12] MEDS: trihexyphenidyl HCL 5 MG tablet PO SCH ×3 (08:02→20:14)
[2021-02-12] MEDS: divalproex 250mg tablet, delayed-release PO SCH (08:02)
[2021-02-12] MEDS: pantoprazole 40mg Tablet.DR PO SCH (08:03)
[2021-02-12] MEDS: olanzapine 10mg tablet PO SCH ×2 (08:03→20:14)
[2021-02-12] MEDS: haloperidol 5mg tablet PO SCH ×4 (08:03→20:15)
[2021-02-12] MEDS: atorvastatin 10mg tablet PO SCH (08:03)
[2021-02-12] MEDS: carbamide peroxide 15ml bottle EACH EAR SCH ×2 (08:18→20:00)
[2021-02-12] MEDS: NICOTINE POLACRILEX 2 MG LOZENGE BC PRN ×5 (08:19→21:37)
--- NOTE | 2021-02-12 15:38 | NUR ---
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 Pt Public Guardian is Thuy Frost phone number #[phone]. Pt was at [place], and was becoming paranoid about his finances. It was found that $200 of his PNI money was unaccounted for and this escalated the patient. Pt began having outbursts of anger and became increasingly paranoid and delusional towards staff and peers. Assessment What has happened this shift: Pt. asleep at change of shift. Meals ate in community room. Medications administered with no issues. 1:1 done at bedside. Pt. cooperative and appropriate during assessment. Pt. had some delusional remarks mid afternoon becoming irritable towards staff shouting he is taking our breaks away and he isnt sure for how long. Pt. was able to redirect himself and calm himself down by looking out the window in recreational room. No further behaviors this shift. Pt. has been appropriate. S/I, H/I: Pt. denies. A/VH: Pt denies. Sleep: Asleep at change of shift, awake throughout day. ADL's: Independent Group attendance: No groups today. Were Meds taken: Yes Any med S/E: None noted or reported Mental Status Exam Appearance: Older gentlemen with lama shoulder length disheveled hair, dressed in own clothes. Eye contact: Good Behavior: Appropriate Speech: Clear, audible Mood: Appropriate, calm. Affect: Labile. Thought process: Paranoid, delusional. Thought Content: Focused on scheduled medications and administrations. Cognition: A/O X 3 Insight: Poor Judgment: Poor Interventions PRN's used: Nicotine Lozenge X2 Therapeutic interventions: 1:1 assessment, therapeutic conversation with active listening, medication administration/education/monitoring, behavior monitoring and intervention as needed; reality orientation, verbal de-escalation, show of support, limit setting, distraction, redirection, provided encouragement and positive reinforcement, Q 15 minute safety checks. Restraints/seclusion/emergency medication: N/A Justification of Continued Inpatient Treatment: Patient is LPS conserved. Patient requires a safe and therapeutic milieu while awaiting placement.
[2021-02-12 20:00] VITALS: BP 116/85
[2021-02-12] MEDS: divalproex sodium 500mg tablet.DR PO SCH (20:15)
--- NOTE | 2021-02-13 02:29 | NUR ---
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 Pt Public Guardian is Thuy Frost phone number #[phone]. Pt was at [place], and was becoming paranoid about his finances. It was found that $200 of his PNI money was unaccounted for and this escalated the patient. Pt began having outbursts of anger and became increasingly paranoid and delusional towards staff and peers. Assessment What has happened this shift: The patient was out on the unit this evening. He spent about an hour sitting in the chair looking outside from the rec room. He was having dialogue with his voices. It was a calm conversation at first, but then became a little heated, as they discussed something going on between the [facility]. When he finished, this nurse asked what they were discussing and the patient started to tell me, but he stopped when another client entered the room. He then walked out. The patient has said that he slept well last night, once he got to sleep. he asked about tonight, and was told his Zyprexa was increased to 20 mg from 10. He is okay with that. The patient still had a little trouble getting to sleep, but once he did, he hasn't woken. He made no delusional comments, or behavioral issues, just spent time RIS. No PRNs required, except for lozenges. S/I, H/I: Denies. A/VH: Denies, but is heard RIS. 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 Any med S/E: None reported or observed. Mental Status Exam Appearance: Disheveled man, greasy looking hair, wearing street clothes. Eye contact: Good Behavior: Cooperative, isolative, delusional, RIS, irritable. Speech: Clear. Mood: "okay" Affect: Blunted. Thought process: Paranoia, delusional Thought Content: Does not discuss Cognition: A/O X 3 with delusions/reality distortion. Insight: Poor Judgment: Poor Interventions PRN's used: Nicotine lozenges. Therapeutic interventions: 1:1 assessment, therapeutic conversation with active listening, medication administration/education/monitoring, behavior monitoring and intervention as needed; reality orientation, verbal de-escalation, show of support, limit setting, distraction, redirection, provided encouragement and positive reinforcement, Q 15 minute safety checks. Restraints/seclusion/emergency medication: N/A Justification of Continued Inpatient Treatment: Patient is LPS conserved. Patient requires a safe and therapeutic milieu while awaiting placement.
[2021-02-13 07:30] VITALS: BP 100/63
[2021-02-13] MEDS: carbamide peroxide 15ml bottle EACH EAR SCH (08:00)
[2021-02-13] MEDS: atorvastatin 10mg tablet PO SCH (08:25)
[2021-02-13] MEDS: haloperidol 5mg tablet PO SCH ×4 (08:26→20:02)
[2021-02-13] MEDS: divalproex 250mg tablet, delayed-release PO SCH (08:26)
[2021-02-13] MEDS: olanzapine 10mg tablet PO SCH ×2 (08:26→20:02)
[2021-02-13] MEDS: trihexyphenidyl HCL 5 MG tablet PO SCH ×3 (08:26→20:02)
[2021-02-13] MEDS: pantoprazole 40mg Tablet.DR PO SCH (08:26)
[2021-02-13] MEDS: NICOTINE POLACRILEX 2 MG LOZENGE BC PRN ×3 (08:37→21:34)
[2021-02-13] MEDS: acetaminophen 325mg tablet PO PRN (10:48)
--- NOTE | 2021-02-13 12:29 | NUR ---
Reassessment: Pt continues with average 100% PO intake on regular diet with occasional 25% and refusals. Pt is meeting estimated nutrient needs. [facility] 02/13. No nutrition concerns at this time. Will continue to follow. Recommend: 1. Continue regular diet 2. Bowel care as needed 3. Weekly scaled weights Addendum: 02/13/21 at [address] Amended: Links added. Addendum: 02/13/21 at [address] HARRY Approves w/ medical intern note.
--- NOTE | 2021-02-13 17:34 | NUR ---
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 Pt Public Guardian is Thuy Frost phone number #[phone]. Pt was at [place], and was becoming paranoid about his finances. It was found that $200 of his PNI money was unaccounted for and this escalated the patient. Pt began having outbursts of anger and became increasingly paranoid and delusional towards staff and peers. Assessment What has happened this shift: Pt. asleep at change of shift. Pt. awoke late for breakfast. When asked how he is feeling, pt. does not respond. Pt. took all meds except for his ear drops. During 1:1 interview, pt. reports he feels good today and made a clever joke. Pt. is cooperative and friendly throughout the day, pacing the halls and talking with peers and staff. Pt. observed watching TV with peers in Rec Room. S/I, H/I: Pt. denies. A/VH: Pt denies. Sleep: Pt. slept in but did not nap the rest of the day. ADL's: Independent Group attendance: No groups today. Were Meds taken: Yes Any med S/E: Denies Mental Status Exam Appearance: Older man with lama shoulder length, disheveled hair, dressed in own clothes. Eye contact: Good Behavior: Appropriate Speech: WNL Mood: Euthymic Affect: Flat Thought process: Linear Thought Content: Circumstantial Cognition: A/O X 3 Insight: Poor Judgment: Poor Interventions PRN's used: Nicotine Lozenge X2 Therapeutic interventions: 1:1 assessment, therapeutic conversation with active listening, medication administration/education/monitoring, behavior monitoring and intervention as needed; reality orientation, verbal de-escalation, show of support, limit setting, distraction, redirection, provided encouragement and positive reinforcement, Q 15 minute safety checks. Restraints/seclusion/emergency medication: N/A Justification of Continued Inpatient Treatment: Patient is LPS conserved. Patient requires a safe and therapeutic milieu while awaiting placement.
[2021-02-13] MEDS: quetiapine 100mg tablet PO SCH (20:02)
[2021-02-13] MEDS: divalproex sodium 500mg tablet.DR PO SCH (20:02)
[2021-02-13 20:10] VITALS: BP 114/76
[2021-02-14] MEDS: LORazepam 1 MG tablet PO PRN (02:30)
--- NOTE | 2021-02-14 03:22 | NUR ---
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 Pt Public Guardian is Thuy Frost phone number #[phone]. Pt was at [place], and was becoming paranoid about his finances. It was found that $200 of his PNI money was unaccounted for and this escalated the patient. Pt began having outbursts of anger and became increasingly paranoid and delusional towards staff and peers. Assessment What has happened this shift: The patient has a fairly good night. He spent time watching tv in the community room. There were no anger issues, agitation, or delusional content voiced. He was not seen or heard responding to IS. He was calm, cooperative, and polite to this nurse. After snack time, he was agreeable to letting this nurse flush his ears out. He went to bed after that and slept until ~0230, when he came and asked for Ativan to get back to. it was effective as he's sleeping at this time. S/I, H/I: Denies. A/VH: Not seen or heard responding to IS tonight. 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 Any med S/E: None reported or observed. Mental Status Exam Appearance: Disheveled man, greasy looking hair, wearing street clothes. Eye contact: Good Behavior: Cooperative, pleasant, cooperative, no anger tonight. Speech: Clear. Mood: "okay" Affect: Blunted. Thought process: Paranoia, delusional Thought Content: Does not discuss Cognition: A/O X 3 with delusions/reality distortion. Insight: Poor Judgment: Poor Interventions PRN's used: Nicotine lozenges, Ativan. Therapeutic interventions: 1:1 assessment, therapeutic conversation with active listening, medication administration/education/monitoring, behavior monitoring and intervention as needed; reality orientation, verbal de-escalation, show of support, limit setting, distraction, redirection, provided encouragement and positive reinforcement, Q 15 minute safety checks. Restraints/seclusion/emergency medication: N/A Justification of Continued Inpatient Treatment: Patient is LPS conserved. Patient requires a safe and therapeutic milieu while awaiting placement.
[2021-02-14 07:37] VITALS: BP 107/66
[2021-02-14] MEDS: trihexyphenidyl HCL 5 MG tablet PO SCH ×3 (07:57→19:52)
[2021-02-14] MEDS: pantoprazole 40mg Tablet.DR PO SCH (07:57)
[2021-02-14] MEDS: divalproex 250mg tablet, delayed-release PO SCH (07:57)
[2021-02-14] MEDS: atorvastatin 10mg tablet PO SCH (07:57)
[2021-02-14] MEDS: haloperidol 5mg tablet PO SCH ×4 (07:58→19:53)
[2021-02-14] MEDS: NICOTINE POLACRILEX 2 MG LOZENGE BC PRN ×3 (08:21→13:21)
--- NOTE | 2021-02-14 17:18 | NUR ---
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 Pt Public Guardian is Thuy Frost phone number #[phone]. Pt was at [place], and was becoming paranoid about his finances. It was found that $200 of his PNI money was unaccounted for and this escalated the patient. Pt began having outbursts of anger and became increasingly paranoid and delusional towards staff and peers. Assessment What has happened this shift: Pt. asleep at change of shift. Pt. awoke for breakfast and took all medications. Pt. refused 1:1 and physical assessments. Pt. in an agitated mood most of the day only approaching this RN for nicotine lozenges. Pt. socially withdrawn but visible in the milieu. Pt. took a nap mid-morning and was awoken for lunch. S/I, H/I: Refused assessment A/VH: Refused assessment Sleep: Pt. napped intermittently throughout the day. ADL's: Independent Group attendance: No groups today. Were Meds taken: Yes Any med S/E: Refused assessment Mental Status Exam Appearance: Older man with lama shoulder length, disheveled hair, dressed in own clothes. Eye contact: Intense Behavior: Uncooperative with care. Agitated. Paranoid. Speech: WNL Mood: Irritable. Affect: Flat Thought process: Linear Thought Content: Circumstantial Cognition: A/O X 3 Insight: Poor Judgment: Poor Interventions PRN's used: Nicotine Lozenge X2 Therapeutic interventions: 1:1 assessment, therapeutic conversation with active listening, medication administration/education/monitoring, behavior monitoring and intervention as needed; reality orientation, verbal de-escalation, show of support, limit setting, distraction, redirection, provided encouragement and positive reinforcement, Q 15 minute safety checks. Restraints/seclusion/emergency medication: N/A Justification of Continued Inpatient Treatment: Patient is LPS conserved. Patient requires a safe and therapeutic milieu while awaiting placement.
[2021-02-14] MEDS: olanzapine 10mg tablet PO SCH ×2 (18:05→19:52)
[2021-02-14] MEDS: quetiapine 100mg tablet PO SCH (19:52)
[2021-02-14] MEDS: divalproex sodium 500mg tablet.DR PO SCH (19:52)
[2021-02-14 20:00] VITALS: BP 132/79
[2021-02-14 20:37] VITALS: BP 132/79
--- NOTE | 2021-02-15 03:42 | NUR ---
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 Pt Public Guardian is Thuy Frost phone number #[phone]. Pt was at [place], and was becoming paranoid about his finances. It was found that $200 of his PNI money was unaccounted for and this escalated the patient. Pt began having outbursts of anger and became increasingly paranoid and delusional towards staff and peers. Assessment What has happened this shift: Pt. awake pacing hallways at change of shift. Came up to the nurses station and commented on his scratch to his nose stating that it looked like someone took a gun to it. Pt agitated and irritated, refused 1:1 and physical assessments. Pt. requested meds early and told this RN that I had to call him, Mr Schafer. Pt took meds and went to bed. S/I, H/I: Refused assessment A/VH: Refused assessment Sleep: Pt. ADL's: Independent Group attendance: No groups today. Were Meds taken: Yes Any med S/E: Refused assessment Mental Status Exam Appearance: Older man with lama shoulder length, disheveled hair, dressed in own clothes. Eye contact: Intense Behavior: Uncooperative with care. Agitated. Paranoid. Speech: WNL Mood: Irritable. Affect: Flat Thought process: Linear Thought Content: Circumstantial Cognition: A/O X 3 Insight: Poor Judgment: Poor Interventions PRN's used: Therapeutic interventions: 1:1 assessment, therapeutic conversation with active listening, medication administration/education/monitoring, behavior monitoring and intervention as needed; reality orientation, verbal de-escalation, show of support, limit setting, distraction, redirection, provided encouragement and positive reinforcement, Q 15 minute safety checks. Restraints/seclusion/emergency medication: N/A Justification of Continued Inpatient Treatment: Patient is LPS conserved. Patient requires a safe and therapeutic milieu while awaiting placement.
[2021-02-15 07:30] VITALS: BP 98/56
[2021-02-15] MEDS: divalproex 250mg tablet, delayed-release PO SCH (08:42)
[2021-02-15] MEDS: haloperidol 5mg tablet PO SCH ×4 (08:43→20:27)
[2021-02-15] MEDS: pantoprazole 40mg Tablet.DR PO SCH (08:43)
[2021-02-15] MEDS: atorvastatin 10mg tablet PO SCH (08:43)
[2021-02-15] MEDS: trihexyphenidyl HCL 5 MG tablet PO SCH ×3 (08:43→20:27)
[2021-02-15] MEDS: NICOTINE POLACRILEX 2 MG LOZENGE BC PRN ×4 (08:48→21:22)
[2021-02-15] MEDS: LORazepam 1 MG tablet PO PRN (12:06)
[2021-02-15] MEDS: olanzapine 10mg tablet PO SCH ×2 (18:09→20:27)
[2021-02-15 20:00] VITALS: BP 131/83
[2021-02-15] MEDS: divalproex sodium 500mg tablet.DR PO SCH (20:27)
[2021-02-15] MEDS: quetiapine 100mg tablet PO SCH (20:27)
[2021-02-16] MEDS: LORazepam 1 MG tablet PO PRN (00:41)
--- NOTE | 2021-02-16 02:23 | NUR ---
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 Pt Public Guardian is Thuy Frost phone number #[phone]. Pt was at [place], and was becoming paranoid about his finances. It was found that $200 of his PNI money was unaccounted for and this escalated the patient. Pt began having outbursts of anger and became increasingly paranoid and delusional towards staff and peers. Assessment What has happened this shift: Pt. awake pacing hallways at change of shift with headphones on. Pt seen in room sitting on the side of the bed, pt refused assessment, no complaint. Pt stated he did not have a good day, You know what happens when things get jacked up. Pt up for a snack took all NOC prescribed meds and went to bed. S/I, H/I: Refused assessment A/VH: Refused assessment Sleep: Pt. ADL's: Independent Group attendance: No groups today. Were Meds taken: Yes Any med S/E: Refused assessment Mental Status Exam Appearance: Older man with lama shoulder length, disheveled hair, dressed in own clothes. Eye contact: Intense Behavior: Uncooperative with care. Agitated. Paranoid. Speech: WNL Mood: Irritable. Affect: Flat Thought process: Linear Thought Content: Circumstantial Cognition: A/O X 3 Insight: Poor Judgment: Poor Interventions PRN's used: Therapeutic interventions: 1:1 assessment, therapeutic conversation with active listening, medication administration/education/monitoring, behavior monitoring and intervention as needed; reality orientation, verbal de-escalation, show of support, limit setting, distraction, redirection, provided encouragement and positive reinforcement, Q 15 minute safety checks. Restraints/seclusion/emergency medication: N/A Justification of Continued Inpatient Treatment: Patient is LPS conserved. Patient requires a safe and therapeutic milieu while awaiting placement.
[2021-02-16] MEDS: divalproex 250mg tablet, delayed-release PO SCH (07:31)
[2021-02-16] MEDS: pantoprazole 40mg Tablet.DR PO SCH (07:31)
[2021-02-16] MEDS: atorvastatin 10mg tablet PO SCH (07:31)
[2021-02-16] MEDS: trihexyphenidyl HCL 5 MG tablet PO SCH ×3 (07:31→20:26)
[2021-02-16] MEDS: haloperidol 5mg tablet PO SCH ×4 (07:31→20:26)
[2021-02-16] MEDS: acetaminophen 325mg tablet PO PRN ×2 (07:36→22:17)
[2021-02-16 07:58] VITALS: BP 93/62
[2021-02-16] MEDS: NICOTINE POLACRILEX 2 MG LOZENGE BC PRN ×6 (08:35→22:02)
--- NOTE | 2021-02-16 09:57 | NUR ---
PLACEMENT UPDATE TAD will try representing to [facility] on 02/23 with updated notes. Packet at [facility], [place], and [place]. LEXIE Squires
--- NOTE | 2021-02-16 15:08 | NUR ---
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 Pt Public Guardian is Thuy Frost phone number #[phone]. Pt was at [place], and was becoming paranoid about his finances. It was found that $200 of his PNI money was unaccounted for and this escalated the patient. Pt began having outbursts of anger and became increasingly paranoid and delusional towards staff and peers. Assessment What has happened this shift: Received pt sleeping at shift change. Pt. takes medications without incident. Patient is irritable with staff today, but is easily redirected with coffee. Patient requesting nicotine lozenges, and gets upset when they are not due. Patient pacing hallways with headphones. S/I, H/I: Refused assessment A/VH: Refused assessment Sleep: Pt. napped intermittently throughout the day. ADL's: Independent Group attendance: No groups today. Were Meds taken: Yes Any med S/E: Refused assessment Mental Status Exam Appearance: Older man with lama shoulder length, disheveled hair, dressed in suit. Eye contact: Intense Behavior: Uncooperative with care. Agitated. Paranoid. Speech: WNL Mood: Irritable. Affect: Flat Thought process: Linear Thought Content: Circumstantial. Nicotine lozenges. Cognition: A/O X 3 Insight: Poor Judgment: Poor Interventions PRN's used: Nicotine Lozenge X2 Therapeutic interventions: 1:1 assessment, therapeutic conversation with active listening, medication administration/education/monitoring, behavior monitoring and intervention as needed; reality orientation, verbal de-escalation, show of support, limit setting, distraction, redirection, provided encouragement and positive reinforcement, Q 15 minute safety checks. Restraints/seclusion/emergency medication: N/A Justification of Continued Inpatient Treatment: Patient is LPS conserved. Patient requires a safe and therapeutic milieu while awaiting placement.
[2021-02-16] MEDS: olanzapine 10mg tablet PO SCH ×2 (18:14→20:27)
[2021-02-16 19:49] VITALS: BP 121/87
[2021-02-16] MEDS: quetiapine 100mg tablet PO SCH (20:27)
[2021-02-16] MEDS: divalproex sodium 500mg tablet.DR PO SCH (20:27)
[2021-02-17] MEDS: LORazepam 1 MG tablet PO PRN (02:49)
--- NOTE | 2021-02-17 03:16 | NUR ---
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 Pt Public Guardian is Thuy Frost phone number #[phone]. Pt was at [place], and was becoming paranoid about his finances. It was found that $200 of his PNI money was unaccounted for and this escalated the patient. Pt began having outbursts of anger and became increasingly paranoid and delusional towards staff and peers. Assessment What has happened this shift: Received pt up in the rec room watching music videos with peers. Pt calm and cooperative however, smiling at this RN stating he had a good day, however refused assessment. Pt. takes medications without incident. Patient pacing hallways with headphones. Pt requested Tylenol for sore feet stating that my shoes dont fit right. Pt to bed around 2230. S/I, H/I: Refused assessment A/VH: Refused assessment Sleep: Pt. napped intermittently throughout the day. ADL's: Independent Group attendance: No groups today. Were Meds taken: Yes Any med S/E: Refused assessment Mental Status Exam Appearance: Older man with lama shoulder length, disheveled hair, dressed in suit. Eye contact: Intense Behavior: Uncooperative with care. Agitated. Paranoid. Speech: WNL Mood: Irritable. Affect: Flat Thought process: Linear Thought Content: Circumstantial. Nicotine lozenges. Cognition: A/O X 3 Insight: Poor Judgment: Poor Interventions PRN's used: Nicotine Lozenge, Tylenol, Ativan Therapeutic interventions: 1:1 assessment, therapeutic conversation with active listening, medication administration/education/monitoring, behavior monitoring and intervention as needed; reality orientation, verbal de-escalation, show of support, limit setting, distraction, redirection, provided encouragement and positive reinforcement, Q 15 minute safety checks. Restraints/seclusion/emergency medication: N/A Justification of Continued Inpatient Treatment: Patient is LPS conserved. Patient requires a safe and therapeutic milieu while awaiting placement.
[2021-02-17] MEDS: haloperidol 5mg tablet PO SCH ×4 (07:33→20:27)
[2021-02-17] MEDS: trihexyphenidyl HCL 5 MG tablet PO SCH ×3 (07:33→20:27)
[2021-02-17] MEDS: pantoprazole 40mg Tablet.DR PO SCH (07:33)
[2021-02-17] MEDS: atorvastatin 10mg tablet PO SCH (07:33)
[2021-02-17] MEDS: divalproex 250mg tablet, delayed-release PO SCH (07:33)
[2021-02-17] MEDS: NICOTINE POLACRILEX 2 MG LOZENGE BC PRN ×5 (07:44→19:36)
[2021-02-17 08:27] VITALS: BP 136/84
[2021-02-17] MEDS: acetaminophen 325mg tablet PO PRN (12:05)
[2021-02-17] MEDS: olanzapine 10mg tablet PO SCH ×2 (17:33→20:27)
--- NOTE | 2021-02-17 17:54 | NUR ---
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 Pt Public Guardian is Thuy Frost phone number #[phone]. Pt was at [place], and was becoming paranoid about his finances. It was found that $200 of his PNI money was unaccounted for and this escalated the patient. Pt began having outbursts of anger and became increasingly paranoid and delusional towards staff and peers. Assessment What has happened this shift: Received pt sleeping at shift change. Patient awakens and medications are administered without incident. Patient refuses physical exam. Patient reported that his feet are hurting and requested Tylenol for pain. Attempted to obtain another pair of shoes for patient, but patient started escalating about going through his belongings. Patient is easily redirected when frustrated. Patient was ambulating hallways with headphones on, and watched t.v. in rec room. S/I, H/I: Refused assessment A/VH: Refused assessment Sleep: Pt. napped intermittently throughout the day. ADL's: Independent Group attendance: No groups today. Were Meds taken: Yes Any med S/E: Refused assessment Mental Status Exam Appearance: Older man with lama shoulder length, disheveled hair, dressed in jeans and suit jacket. Eye contact: Intense Behavior: Pacing hallways with headphones, watches t.v. Speech: WNL Mood: Irritable. Affect: Flat Thought process: Linear Thought Content: Circumstantial. Nicotine lozenges. Wanting his other shoes, but not allowing RN to get them for him. Cognition: A/O X 3 Insight: Poor Judgment: Poor Interventions PRN's used: Nicotine Lozenge X4, Tylenol. Therapeutic interventions: 1:1 assessment, therapeutic conversation with active listening, medication administration/education/monitoring, behavior monitoring and intervention as needed; reality orientation, verbal de-escalation, show of support, limit setting, distraction, redirection, provided encouragement and positive reinforcement, Q 15 minute safety checks. Restraints/seclusion/emergency medication: N/A Justification of Continued Inpatient Treatment: Patient is LPS conserved. Patient requires a safe and therapeutic milieu while awaiting placement.
[2021-02-17 20:00] VITALS: BP 119/82
[2021-02-17] MEDS: divalproex sodium 500mg tablet.DR PO SCH (20:27)
[2021-02-17] MEDS: quetiapine 100mg tablet PO SCH (20:27)
--- NOTE | 2021-02-18 02:55 | NUR ---
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 Pt Public Guardian is Thuy Frost phone number #[phone]. Pt was at [place], and was becoming paranoid about his finances. It was found that $200 of his PNI money was unaccounted for and this escalated the patient. Pt began having outbursts of anger and became increasingly paranoid and delusional towards staff and peers. Assessment What has happened this shift: Received pt up sitting in his room, refused assessment and stated that he feels theres a lot of hatred on this unit. I dont understand why everyone hates me here. When trying to reassure pt that this is not what is happening he smiled and said, Well, go talk to the CN. Pt became somewhat irritated and angry at med pass thinking there was a pill missing. Pt changed into green scrubs for bedtime and went to lay down for the night. S/I, H/I: Refused assessment A/VH: Refused assessment Sleep: ADL's: Independent Group attendance: No groups today. Were Meds taken: Yes Any med S/E: Refused assessment Mental Status Exam Appearance: Older man with lama shoulder length, disheveled hair, dressed in jeans and suit jacket. Eye contact: Intense Behavior: Pacing hallways with headphones, watches t.v. Speech: WNL Mood: Irritable. Affect: Flat Thought process: Linear Thought Content: Thinking staff on this unit dont like him. Cognition: A/O X 3 Insight: Poor Judgment: Poor Interventions PRN's used: Therapeutic interventions: 1:1 assessment, therapeutic conversation with active listening, medication administration/education/monitoring, behavior monitoring and intervention as needed; reality orientation, verbal de-escalation, show of support, limit setting, distraction, redirection, provided encouragement and positive reinforcement, Q 15 minute safety checks. Restraints/seclusion/emergency medication: N/A Justification of Continued Inpatient Treatment: Patient is LPS conserved. Patient requires a safe and therapeutic milieu while awaiting placement.
[2021-02-18 07:36] LABS: BASOPHILS % (AUTO) 0.5 % (0-1); EOSINOPHILS # (AUTO) 0.6 X10'3 (0-0.9); EOSINOPHILS % (AUTO) 13.4 % (0-6); HEMATOCRIT 38.5 % (42.0-52.0); HEMOGLOBIN 12.7 g/dl (14.0-17.9); LYMPHOCYTES # (AUTO) 1.4 X10'3 (1.1-4.8); LYMPHOCYTES % (AUTO) 30.1 % (21-51); MEAN CORPUSCULAR HEMOGLOBIN 31.9 PG (27.0-31.0); MEAN CORPUSCULAR HGB CONC 32.9 g/dL (33.0-36.5); MEAN CORPUSCULAR VOLUME 97.1 FL (78-98); MEAN PLATELET VOLUME 7.6 FL (7.4-10.4); MONOCYTES # (AUTO) 0.6 X10'3 (0-0.9); MONOCYTES % (AUTO) 12.7 % (2-12); NEUTROPHILS % (AUTO) 43.3 % (42-75); PLATELET COUNT 139 X10'3 (140-440); RED BLOOD COUNT 3.96 X10'6 (4.70-6.10); RED CELL DISTRIBUTION WIDTH 13.7 % (11.5-14.5); WHITE BLOOD COUNT 4.7 X10'3 (4.5-11.0)
[2021-02-18] MEDS: trihexyphenidyl HCL 5 MG tablet PO SCH ×3 (07:52→20:24)
[2021-02-18] MEDS: atorvastatin 10mg tablet PO SCH (07:52)
[2021-02-18] MEDS: haloperidol 5mg tablet PO SCH ×4 (07:52→20:24)
[2021-02-18] MEDS: pantoprazole 40mg Tablet.DR PO SCH (07:52)
[2021-02-18] MEDS: NICOTINE POLACRILEX 2 MG LOZENGE BC PRN ×4 (07:53→18:47)
[2021-02-18] MEDS: divalproex 250mg tablet, delayed-release PO SCH (07:53)
[2021-02-18 08:13] LABS: ALANINE AMINOTRANSFERASE 17 U/L (12-78); ALBUMIN 3.1 G/DL (3.4-5.0); ALBUMIN/GLOBULIN RATIO 1.1 (1.1-1.5); ALKALINE PHOSPHATASE 102 IU/L (46-116); ANION GAP 8 (8-16); ASPARTATE AMINO TRANSFERASE 9 U/L (10-37); BILIRUBIN,TOTAL 0.3 MG/DL (0.1-1.0); BLOOD UREA NITROGEN 19 MG/DL (7-18); BUN/CREATININE RATIO 24.7 (5.4-32.0); CALCIUM 9.2 MG/DL (8.5-10.1); CHLORIDE 109 MMOL/L (99-107); CREATININE 0.77 MG/DL (0.60-1.10); GLUCOSE 94 MG/DL (70-104); POTASSIUM 4.5 MMOL/L (3.5-5.1); SODIUM 144 MMOL/L (135-145); TOTAL CARBON DIOXIDE 27.2 MMOL/L (24-32); VALPROATE 103 UG/ML (50-100); eGFR > 90 ML/MIN
[2021-02-18 08:30] VITALS: BP 106/62
--- NOTE | 2021-02-18 15:57 | NUR ---
Nursing Progress Note: Client on involuntary status for GD Report received from nurse, CAROLIN Arriaga with use of SBAR Why are they here: Patient is LPS conserved and has a hx of schizoaffective disorder and PICA. Pt Public Guardian is Thuy Frost phone number #[phone]. Pt was at [place], and was becoming paranoid about his finances. It was found that $200 of his PNI money was unaccounted for and this escalated the patient. Pt began having outbursts of anger and became increasingly paranoid and delusional towards staff and peers. Assessment What has happened this shift: Pt is visual on the unit. Engaging with staff and peers. He attended and participated in the group activity of [employer] and then played a hand of [employer]. Pt is cheerful saying, "Hi" to staff and others. He is cooperative with treatment. He continues to be heard and observed RIS in his room when alone. S/I, H/I: Denies A/VH: Appears to RIS Sleep: Did not nap today ADL's: Independent Group attendance: Played games in the community room with others Were Meds taken: Yes Any med S/E: None noted or reported Mental Status Exam Appearance: Dressed in t-shirt and jeans Eye contact: Direct Behavior: Pacing hallways with headphones, watches t.v. cooperative and pleasant Speech: WNL, somewhat pressured Mood: Paranoid Affect: Flat Thought process: Linear Thought Content: Delusional. Cognition: A/O X 3 Insight: Poor Judgment: Poor Interventions PRN's used: Nicotine Lozenge x3 Therapeutic interventions: 1:1 assessment, therapeutic communication with active listening, medication administration/education/monitoring, behavior monitoring and intervention as needed; provided encouragement and positive reinforcement, Q 15 minute safety checks. Restraints/seclusion/emergency medication: N/A Justification of Continued Inpatient Treatment: Patient is LPS conserved. Patient requires a safe and therapeutic milieu while awaiting placement.
[2021-02-18] MEDS: olanzapine 10mg tablet PO SCH ×2 (17:37→20:24)
[2021-02-18 19:00] VITALS: BP 125/77
[2021-02-18] MEDS: divalproex sodium 500mg tablet.DR PO SCH (20:23)
[2021-02-18] MEDS: quetiapine 100mg tablet PO SCH (20:24)
--- NOTE | 2021-02-19 00:23 | NUR ---
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 Pt Public Guardian is Thuy Frost phone number #[phone]. Pt was at [place], and was becoming paranoid about his finances. It was found that $200 of his PNI money was unaccounted for and this escalated the patient. Pt began having outbursts of anger and became increasingly paranoid and delusional towards staff and peers. Assessment What has happened this shift: The patient has been up on the unit. He was pleasant and cooperative during the evening assessment. He stated that he had a good day. He was medication compliant and he denied medication side effects. He did not have any outbursts. Insight and judgement remain impaired. He is pending placement through the Public Guardian's office.
[2021-02-19] MEDS: LORazepam 1 MG tablet PO PRN ×2 (00:47→22:01)
[2021-02-19] MEDS: NICOTINE POLACRILEX 2 MG LOZENGE BC PRN ×4 (07:38→19:33)
[2021-02-19] MEDS: pantoprazole 40mg Tablet.DR PO SCH (07:38)
[2021-02-19] MEDS: atorvastatin 10mg tablet PO SCH (07:38)
[2021-02-19] MEDS: trihexyphenidyl HCL 5 MG tablet PO SCH ×3 (07:38→20:20)
[2021-02-19] MEDS: divalproex 250mg tablet, delayed-release PO SCH (07:39)
[2021-02-19] MEDS: haloperidol 5mg tablet PO SCH ×4 (07:39→20:20)
[2021-02-19 08:00] VITALS: BP 114/77
[2021-02-19] MEDS: olanzapine 10mg tablet PO SCH ×2 (17:09→20:20)
--- NOTE | 2021-02-19 17:19 | NUR ---
Nursing Progress Note: Client on involuntary status for GD Report received from nurse, CAROLIN Arriaga with use of SBAR Why are they here: Patient is LPS conserved and has a hx of schizoaffective disorder and PICA. Pt Public Guardian is Thuy Frost phone number #[phone]. Pt was at [place], and was becoming paranoid about his finances. It was found that $200 of his PNI money was unaccounted for and this escalated the patient. Pt began having outbursts of anger and became increasingly paranoid and delusional towards staff and peers. Assessment What has happened this shift: Pt up on the unit pacing the halls most of the day. Pt takes his medications as prescribed and will ask for nicotine lozenges 2-3 times per shift. Pt went to the painting group and painted. S/I, H/I: Denies A/VH: Appears to RIS Sleep: Did not nap today ADL's: Independent Group attendance: Yes Were Meds taken: Yes Any med S/E: None noted or reported Mental Status Exam Appearance: Dressed in t-shirt and jeans Eye contact: Direct Behavior: Pacing hallways with headphones, watches t.v. Speech: WNL, somewhat pressured Mood: Paranoid Affect: Flat Thought process: Linear Thought Content: Delusional. Cognition: A/O X 3 Insight: Poor Judgment: Poor Interventions PRN's used: Nicotine Lozenges Therapeutic interventions: 1:1 assessment, therapeutic communication with active listening, medication administration/education/monitoring, behavior monitoring and intervention as needed; provided encouragement and positive reinforcement, Q 15 minute safety checks. Restraints/seclusion/emergency medication: N/A Justification of Continued Inpatient Treatment: Patient is LPS conserved. Patient requires a safe and therapeutic milieu while awaiting placement.
[2021-02-19 19:21] VITALS: BP 123/75
[2021-02-19] MEDS: quetiapine 100mg tablet PO SCH (20:20)
[2021-02-19] MEDS: divalproex sodium 500mg tablet.DR PO SCH (20:20)
[2021-02-19] MEDS: acetaminophen 325mg tablet PO PRN (22:32)
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
[2021-02-20 08:20] VITALS: BP 132/82
[2021-02-20] MEDS: haloperidol 5mg tablet PO SCH ×4 (08:21→20:02)
[2021-02-20] MEDS: divalproex 250mg tablet, delayed-release PO SCH (08:22)
[2021-02-20] MEDS: pantoprazole 40mg Tablet.DR PO SCH (08:24)
[2021-02-20] MEDS: trihexyphenidyl HCL 5 MG tablet PO SCH ×3 (08:24→20:02)
[2021-02-20] MEDS: atorvastatin 10mg tablet PO SCH (08:24)
[2021-02-20] MEDS: NICOTINE POLACRILEX 2 MG LOZENGE BC PRN ×4 (08:29→18:12)
--- NOTE | 2021-02-20 16:49 | NUR ---
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 Pt Public Guardian is Thuy Frost phone number #[phone]. Pt was at [place], and was becoming paranoid about his finances. It was found that $200 of his PNI money was unaccounted for and this escalated the patient. Pt began having outbursts of anger and became increasingly paranoid and delusional towards staff and peers. Assessment What has happened this shift: Patient sleeping at shift change, no distress noted. Pt wakes and is in a pleasant mood. Pt was compliant with mediations, but stated Depakote doesnt agree with my intestines, it gives me the hurkey-jerkies; makes my rectum hurt. Pt denied diarrhea. Pt talking down the phillips I think he [roommate] is . He is because he doesnt believe in ghosts. He has a.flat affect, yes a flat affect. Decreased platelet count being monitored by providers. S/I, H/I: Denies both. A/VH: Denies, but appears to RIS Sleep: 6.25 hours per sleep assessment. No naps today. ADL's: Independent Group attendance: No scheduled group today. Were Meds taken: Yes, without issue. Any med S/E: None noted or reported Mental Status Exam Appearance: Looks older then stated age. Med-length lama hair. Dressed in t-shirt and jeans and sports coat. Eye contact: Good Behavior: Cooperative, watched T.V, paces phillips or sits in the chair in his room. Speech: Clear, loud at times, audible. Mood: Calm, delusional Affect: Constricted. Thought process: Tangential at times. Thought Content: Delusional- bizarre thoughts presented daily. Cognition: A/O X 3 Insight: Poor Judgment: Poor Interventions PRN's used: Nicotine Lozenges Therapeutic interventions: 1:1 assessment, therapeutic communication with active listening, medication administration/education/monitoring, behavior monitoring and intervention as needed; provided encouragement and positive reinforcement, Q 15 minute safety checks. Restraints/seclusion/emergency medication: N/A Justification of Continued Inpatient Treatment: Patient is LPS conserved. Patient requires a safe and therapeutic milieu while awaiting placement.
[2021-02-20] MEDS: olanzapine 10mg tablet PO SCH ×2 (18:12→20:02)
[2021-02-20] MEDS: quetiapine 100mg tablet PO SCH (20:02)
[2021-02-20] MEDS: divalproex sodium 500mg tablet.DR PO SCH (20:02)
[2021-02-20 20:15] VITALS: BP 123/80
[2021-02-21] MEDS: LORazepam 1 MG tablet PO PRN ×2 (01:02→22:07)
--- NOTE | 2021-02-21 02:59 | NUR ---
Nursing Progress Note: Client on involuntary status for GD Report received from CAROLIN Forrest with use of SBAR Why are they here: Patient is LPS conserved and has a hx of schizoaffective disorder and PICA. Pt Public Guardian is Thuy Frost phone number #[phone]. Pt was at [place], and was becoming paranoid about his finances. It was found that $200 of his PNI money was unaccounted for and this escalated the patient. Pt began having outbursts of anger and became increasingly paranoid and delusional towards staff and peers. Assessment What has happened this shift: The patient was seen sitting in his chair at shift change. He was in a pleasant mood. The patient stayed that way all evening; even when he was wearing headphones in his room while he had discussions with himself. He came out for snack time, and then HS med pass. The patient reports that he will take any medicine that his Doctor prescribes, "as long as it will help me". The patient made no delusional comments, as well, he had no outbursts tonight. He did come out at ~0100 to ask for Ativan, which was helpful to him getting to sleep. S/I, H/I: Denies A/VH: Seen and heard RIS. Sleep: See sleep assessment ADL's: Independent Group attendance: No night groups Were Meds taken: Yes Any med S/E: None reported or observed. Mental Status Exam Appearance: Disheveled, dressed in jeans, dark shirt, and black jacket. Eye contact: Direct Behavior: Pacing hallways with headphones, watches t.v, isolates, pleasant Speech: WNL, somewhat pressured and loud. Mood: Pleasant Affect: Flat Thought process: Linear Thought Content: Delusional. Cognition: A/O X 3 Insight: Poor Judgment: Poor Interventions PRN's used: Ativan 1mg Therapeutic interventions: 1:1 assessment, therapeutic communication with active listening, medication administration/education/monitoring, behavior monitoring and intervention as needed; provided encouragement and positive reinforcement, Q 15 minute safety checks. Restraints/seclusion/emergency medication: N/A Justification of Continued Inpatient Treatment: Patient is LPS conserved. Patient requires a safe and therapeutic milieu while awaiting placement.
[2021-02-21] MEDS: atorvastatin 10mg tablet PO SCH (07:38)
[2021-02-21] MEDS: divalproex 250mg tablet, delayed-release PO SCH (07:38)
[2021-02-21] MEDS: haloperidol 5mg tablet PO SCH ×4 (07:38→20:00)
[2021-02-21] MEDS: pantoprazole 40mg Tablet.DR PO SCH (07:38)
[2021-02-21] MEDS: trihexyphenidyl HCL 5 MG tablet PO SCH ×3 (07:38→20:00)
[2021-02-21 08:08] VITALS: BP 103/65
[2021-02-21] MEDS: NICOTINE POLACRILEX 2 MG LOZENGE BC PRN ×4 (10:22→19:39)
--- NOTE | 2021-02-21 13:53 | NUR ---
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 Pt Public Guardian is Thuy Frost phone number #[phone]. Pt was at [place], and was becoming paranoid about his finances. It was found that $200 of his PNI money was unaccounted for and this escalated the patient. Pt began having outbursts of anger and became increasingly paranoid and delusional towards staff and peers. Assessment What has happened this shift: Pt got up for breakfast and was cooperative with scheduled medications. Pt requested a nicotine lozenge at 1022. When asked pt how he was doing today, pt replied in a somewhat sarcastic tone of voice, "a perfect little kvng." Pt was observed socializing appropriately with peers today, especially an older female peer. Pt made jokes and laughed. Pt told another RN, "you look like you've seen a ghost" and laughed. Pt stated, "I'm sorry that I'm so loud, I'm eyal hard of hearing." Pt was observed making funny faces good naturedly at a physician's after school program assistant through the nurses's station window. Pt continues to make bizarre delusional statements at times. Pt asked for another nicotine lozenge after lunch. He stated, "they kind of coat your stomach and your throat too...good for the thyroid." No unsafe behaviors, verbal outbursts, or physical outbursts today. S/I, H/I: Pt denies A/VH: Pt denies Sleep: Pt slept 8 hours last night per noc shift report. ADL's: Independent Group attendance: No groups today. Were Meds taken: Yes Any med S/E: None noted or reported. Mental Status Exam Appearance: Older appearing gentleman with glasses, dressed in jeans, a new long sleeved dark lama collared shirt, and new black leather shoes. Eye contact: Good. Behavior: Pleasant, cooperative, watches TV in the rec room or the community room, listens to radio headphones, socializes with staff and peers. Speech: Clear, audible, loud at times. Mood: Good Affect: Blunted Thought process: Bizarre, delusional, circumstantial Thought Content: Nicotine lozenges are good for the thyroid. Cognition: A/O X 3 Insight: Poor Judgment: Poor Interventions PRN's used: Nicotine lozenges. Therapeutic interventions: 1:1 assessment, therapeutic conversation, active listening, medication administration/education/monitoring, behavior monitoring and intervention as needed; distraction, redirection, provided encouragement and positive reinforcement, Q 15 minute safety checks. Restraints/seclusion/emergency medication: N/A Justification of Continued Inpatient Treatment: Patient is LPS conserved. Patient requires a safe and therapeutic milieu while awaiting placement.
[2021-02-21] MEDS: olanzapine 10mg tablet PO SCH ×2 (17:04→20:01)
[2021-02-21 20:00] VITALS: BP 134/83
[2021-02-21] MEDS: quetiapine 100mg tablet PO SCH (20:00)
[2021-02-21] MEDS: divalproex sodium 500mg tablet.DR PO SCH (20:00)
[2021-02-22] MEDS: acetaminophen 325mg tablet PO PRN (00:57)
--- NOTE | 2021-02-22 01:48 | NUR ---
Nursing Progress Note: Client on involuntary status for GD Report received from CAROLIN Forrest with use of SBAR Why are they here: Patient is LPS conserved and has a hx of schizoaffective disorder and PICA. Pt Public Guardian is Thuy Frost phone number #[phone]. Pt was at [place], and was becoming paranoid about his finances. It was found that $200 of his PNI money was unaccounted for and this escalated the patient. Pt began having outbursts of anger and became increasingly paranoid and delusional towards staff and peers. Assessment What has happened this shift: The patient was on his bed at shift change. He came out soon after, and was in a good mood. This documentation writer asked why he's in such a good mood, "well, I took my Haldol." He continued to stay in good mood through the evening. He continues to make bizarre and delusional statements, but has done so calmly and without outburst. He seems to know when his mood is going to change, so he requests Ativan or Seroquel, which has been effective for him to remain calm. S/I, H/I: Denies A/VH: Seen and heard RIS. Sleep: See sleep assessment ADL's: Independent Group attendance: No night groups Were Meds taken: Yes Any med S/E: None reported or observed. Mental Status Exam Appearance: Disheveled, dressed in jeans, dark shirt, and black jacket. Eye contact: Direct Behavior: Pacing hallways with headphones, watches t.v, isolates, pleasant Speech: WNL, somewhat pressured and loud. Mood: Pleasant Affect: Flat Thought process: Linear Thought Content: Delusional. Cognition: A/O X 3 Insight: Poor Judgment: Poor Interventions PRN's used: Ativan 1mg, Nicotine lozenge Therapeutic interventions: 1:1 assessment, therapeutic communication with active listening, medication administration/education/monitoring, behavior monitoring and intervention as needed; provided encouragement and positive reinforcement, Q 15 minute safety checks. Restraints/seclusion/emergency medication: N/A Justification of Continued Inpatient Treatment: Patient is LPS conserved. Patient requires a safe and therapeutic milieu while awaiting placement.
[2021-02-22] MEDS: haloperidol 5mg tablet PO PRN (05:10)
[2021-02-22] MEDS: NICOTINE POLACRILEX 2 MG LOZENGE BC PRN ×4 (05:10→19:00)
[2021-02-22] MEDS: pantoprazole 40mg Tablet.DR PO SCH (07:11)
[2021-02-22] MEDS: trihexyphenidyl HCL 5 MG tablet PO SCH ×3 (07:11→20:06)
[2021-02-22] MEDS: divalproex 250mg tablet, delayed-release PO SCH (07:11)
[2021-02-22] MEDS: atorvastatin 10mg tablet PO SCH (07:11)
[2021-02-22] MEDS: haloperidol 5mg tablet PO SCH ×4 (07:12→20:06)
[2021-02-22 07:43] VITALS: BP 126/86
--- NOTE | 2021-02-22 14:10 | NUR ---
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 Pt Public Guardian is Thuy Forst phone number #[phone]. Pt was at [place], and was becoming paranoid about his finances. It was found that $200 of his PNI money was unaccounted for and this escalated the patient. Pt began having outbursts of anger and became increasingly paranoid and delusional towards staff and peers. Assessment What has happened this shift: Pt presented as slightly irritable this morning. Pt c/o not sleeping well last night, states that the doctor decreased his Seroquel and he couldn't get a repeat dose last night. Reality orientation provided that the doctor had not changed the order and that he could ask for a repeat dose tonight if the first dose was ineffective. Pt asked this nurse if I noticed that he took an extra Haldol this morning. (Pt was given a PRN dose of PO Haldol 10 mg on noc shift at 0510.) Pt was quiet today and took a long nap before lunch. Pt was up for meals. Pt did not make any obvious delusional statements today. S/I, H/I: Pt denies A/VH: Pt denies Sleep: Pt slept 6 hours last night per noc shift report, pt reported not sleeping well. ADL's: Independent Group attendance: No groups today. Were Meds taken: Yes Any med S/E: Pt was sleepier today though it may have been from not sleeping well last night. Mental Status Exam Appearance: Older appearing gentleman with glasses, dressed in jeans, a purple t-shirt, and a silver-lama sports jacket. Eye contact: Good. Behavior: Pleasant, cooperative, quiet, napped. Speech: Clear, audible, loud at times. Mood: Tired, irritable Affect: Congruent. Thought process: Mildly disorganized. Thought Content: He didn't sleep well because he didn't get enough Seroquel last night. Cognition: A/O X 3 Insight: Poor Judgment: Poor Interventions PRN's used: Nicotine lozenge Therapeutic interventions: 1:1 assessment, therapeutic conversation, active listening, medication administration/education/monitoring, behavior monitoring and intervention as needed; reality orientation, distraction, redirection, provided encouragement and positive reinforcement, Q 15 minute safety checks. Restraints/seclusion/emergency medication: N/A Justification of Continued Inpatient Treatment: Patient is LPS conserved. Patient requires a safe and therapeutic milieu while awaiting placement.
--- NOTE | 2021-02-22 14:34 | NUR ---
PLACEMENT UPDATE TAD requested notes from 02/16/31 to current to send to [facility]. Sent requested notes and med list. LEXIE Squires
[2021-02-22] MEDS: olanzapine 10mg tablet PO SCH ×2 (17:25→20:07)
[2021-02-22 20:00] VITALS: BP 113/74
[2021-02-22] MEDS: divalproex sodium 500mg tablet.DR PO SCH (20:06)
[2021-02-22] MEDS: quetiapine 100mg tablet PO SCH (20:06)
[2021-02-22 22:02] VITALS: BP 113/74
--- NOTE | 2021-02-23 00:36 | NUR ---
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 Pt Public Guardian is Thuy Frost phone number #[phone]. Pt was at [place], and was becoming paranoid about his finances. It was found that $200 of his PNI money was unaccounted for and this escalated the patient. Pt began having outbursts of anger and became increasingly paranoid and delusional towards staff and peers. Assessment What has happened this shift: The patient was in his chair at shift change. This ticket writer entered his room soon after for 1:1. He was just coming out of the bathroom, "there's a Poltergeist in the toilet. It needs to be exorcised." This ticket writer told him that I don't know much about exorcisms, but I'll give it a try. "Nah, I was born in the lab and I developed those skills while I was there, so I'll take care of it." He has again tonight been in a good mood. He continues to make delusional statements, but has done so calmly, and in a pleasant manner. He has been assured that he can utilize a repeat dose of Seroquel, instead of asking for Haldol or Ativan. He has recently done so tonight. He has not been loud or made any outbursts tonight. S/I, H/I: Denies A/VH: Seen and heard RIS. Sleep: See sleep assessment ADL's: Independent Group attendance: No night groups Were Meds taken: Yes Any med S/E: None reported or observed. Mental Status Exam Appearance: Disheveled, dressed in jeans, dark shirt, and black jacket. Eye contact: Direct Behavior: Pacing hallways with headphones, watches t.v, isolates, pleasant Speech: WNL, somewhat pressured. Mood: Pleasant Affect: Flat Thought process: Linear Thought Content: Delusional. Cognition: A/O X 3 Insight: Poor Judgment: Poor Interventions PRN's used: Nicotine lozenge, Repeat Seroquel. Therapeutic interventions: 1:1 assessment, therapeutic communication with active listening, medication administration/education/monitoring, behavior monitoring and intervention as needed; provided encouragement and positive reinforcement, Q 15 minute safety checks. Restraints/seclusion/emergency medication: N/A Justification of Continued Inpatient Treatment: Patient is LPS conserved. Patient requires a safe and therapeutic milieu while awaiting placement.
[2021-02-23] MEDS: pantoprazole 40mg Tablet.DR PO SCH (07:25)
[2021-02-23] MEDS: divalproex 250mg tablet, delayed-release PO SCH (07:25)
[2021-02-23] MEDS: atorvastatin 10mg tablet PO SCH (07:25)
[2021-02-23] MEDS: trihexyphenidyl HCL 5 MG tablet PO SCH ×3 (07:25→20:46)
[2021-02-23] MEDS: haloperidol 5mg tablet PO SCH ×4 (07:25→20:46)
[2021-02-23 08:00] VITALS: BP 107/56
[2021-02-23] MEDS: NICOTINE POLACRILEX 2 MG LOZENGE BC PRN ×4 (08:10→21:44)
--- NOTE | 2021-02-23 08:34 | NUR ---
F/u 02/23: Pt continues with average 100% PO intake on regular diet meeting needs. LBM 02/21. No nutrition concerns at this time. Will continue to follow. Recommend: 1. Continue regular diet 2. Bowel care as needed 3. Weekly scaled weights Addendum: 02/23/21 at [address] Amended: Links added.
[2021-02-23] MEDS ORDERED: COVID-19 VACCINE,AD26(JANSSEN/J&J)adenovirus/PF 0.5 ML SYRINGE IMVAC ONE (13:30)
--- NOTE | 2021-02-23 15:23 | NUR ---
PLACEMENT UPDATE Packet at [facility]. New notes were presented to Bhargavi Estrada. LEXIE Squires
--- NOTE | 2021-02-23 16:25 | NUR ---
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 Pt Public Guardian is Thuy Frost phone number #[phone]. Pt was at [place], and was becoming paranoid about his finances. It was found that $200 of his PNI money was unaccounted for and this escalated the patient. Pt began having outbursts of anger and became increasingly paranoid and delusional towards staff and peers. Assessment What has happened this shift: Pt was up for breakfast and cooperative with medications. Pt reported that he slept better last night. Pt was in a good day today socializing with staff and peers. Pt continues to be mildly disorganized in his thought patterns and makes delusional bizarre statements. Stephenson pt stated, "that was an FebruaryMango DSP's joke." A few minutes later asked pt what was an Februaryosmany's Joke? He had already forgotten and made a comment about, "a blast from the past." Pt was loud and a little intrusive at times with peers though remained friendly and easily redirectable. A J&J Covid-19 vaccine was ordered for the patient today after lunch and he was happy to receive it. Pt frequently wears a mask on the unit. S/I, H/I: Pt denies A/VH: Pt denies Sleep: Pt slept 8 hours last night per noc shift report. ADL's: Independent Group attendance: No groups today. Were Meds taken: Yes Any med S/E: None noted or reported. Mental Status Exam Appearance: Older appearing gentleman with glasses, dressed in jeans, a purple t-shirt, and a ribbed white tank top and black shoes. Eye contact: Good. Behavior: Pleasant, cooperative, intrusive and loud at times, redirects easily. Speech: Clear, audible, loud at times. Mood: Good Affect: Friendly Thought process: Mildly disorganized, delusional. Thought Content: Some thoughts about Februarys Day. Cognition: A/O X 3 Insight: Poor Judgment: Poor Interventions PRN's used: Nicotine lozenges Therapeutic interventions: 1:1 assessment, therapeutic conversation, active listening, medication administration/education/monitoring, behavior monitoring and intervention as needed; reality orientation, distraction, redirection, limit setting, provided encouragement and positive reinforcement, Q 15 minute safety checks. Restraints/seclusion/emergency medication: N/A Justification of Continued Inpatient Treatment: Patient is LPS conserved. Patient requires a safe and therapeutic milieu while awaiting placement.
[2021-02-23] MEDS: olanzapine 10mg tablet PO SCH ×2 (17:01→20:47)
[2021-02-23 20:00] VITALS: BP 114/73
[2021-02-23] MEDS: quetiapine 100mg tablet PO SCH (20:46)
[2021-02-23] MEDS: divalproex sodium 500mg tablet.DR PO SCH (20:47)
[2021-02-24] MEDS ORDERED: quetiapine 100mg tablet PO ONE (02:35)
[2021-02-24] MEDS: haloperidol 5mg tablet PO PRN (02:42)
--- NOTE | 2021-02-24 02:57 | NUR ---
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 Pt Public Guardian is Thuy Frost phone number #[phone]. Pt was at [place], and was becoming paranoid about his finances. It was found that $200 of his PNI money was unaccounted for and this escalated the patient. Pt began having outbursts of anger and became increasingly paranoid and delusional towards staff and peers. Assessment What has happened this shift: Following shift change the patient is noted to be in his room. He sits on his bed. Patient exhibits some anger, he blurts out profanity. Patient later is calm, he exited his room, watched some television and socialized with peers. Patient is observed making delusional statements throughout the evening, he also has moments of brightening where he is smiling and laughing. Early am this patient comes to nurses station, he demands Seroquel. When told that Seroquel is not a PRN the patient becomes loud and angry. Patient believes his MAR should have a PRN Seroquel. The patient was advised that we would call the electronic system engineer MD for an order, patient is satisfied with this move. Dr. Obrien gives a telephone order for Seroquel. When patient was advised, the patient changes his mind, he now wants to talk his PRN Haldol. "We will see who is right? Patient exhibits poor logic. He does take Haldol 10 mg PO. Patient rests in his room and then paces while listening to music. S/I, H/I: Pt denies A/VH: Pt denies Sleep: Will tally at 0500 hours ADL's: Independent Group attendance: No groups today. Were Meds taken: Yes, with some reluctance Any med S/E: None noted or reported. Mental Status Exam Appearance: Mildly disheveled wearing casual attire Eye contact: Good. Behavior: Pleasant, labile, cooperative, intrusive and loud at times, redirects easily. Speech: Clear, audible, loud at times. Mood: Labile, paranoid Affect: Flat Thought process: Mildly disorganized, delusional. Thought Content: Cognition: A/O X 3 Insight: Poor Judgment: Poor Interventions PRN's used: Nicotine, Trazadone, Haldol Therapeutic interventions: 1:1 assessment, therapeutic conversation, active listening, medication administration/education/monitoring, behavior monitoring and intervention as needed; reality orientation, distraction, redirection, limit setting, provided encouragement and positive reinforcement, Q 15 minute safety checks. Restraints/seclusion/emergency medication: N/A Justification of Continued Inpatient Treatment: Patient is LPS conserved. Patient requires a safe and therapeutic milieu while awaiting placement.
[2021-02-24 08:00] VITALS: BP 91/55
[2021-02-24] MEDS: pantoprazole 40mg Tablet.DR PO SCH (08:03)
[2021-02-24] MEDS: trihexyphenidyl HCL 5 MG tablet PO SCH ×3 (08:03→20:37)
[2021-02-24] MEDS: atorvastatin 10mg tablet PO SCH (08:03)
[2021-02-24] MEDS: haloperidol 5mg tablet PO SCH ×4 (08:04→20:37)
[2021-02-24] MEDS: divalproex 250mg tablet, delayed-release PO SCH (08:06)
[2021-02-24] MEDS: NICOTINE POLACRILEX 2 MG LOZENGE BC PRN ×2 (08:39→11:00)
--- NOTE | 2021-02-24 13:14 | NUR ---
Faxed LPS re-appointment paperwork to Public Guardian which Dr Obrien had completed. Fax# [phone] C LEXIE Elmore
--- NOTE | 2021-02-24 17:27 | NUR ---
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 Pt Public Guardian is Thuy Frost phone number #[phone]. Pt was at [place], and was becoming paranoid about his finances. It was found that $200 of his PNI money was unaccounted for and this escalated the patient. Pt began having outbursts of anger and became increasingly paranoid and delusional towards staff and peers. Assessment What has happened this shift: Pt up for breakfast and wearing headphones for majority of the day. He talks loudly, mostly making variety of statements like I dont want them to think it is in my head, like that Carlos Boy, always sucking me into his head. And you had that great marriage, yeah, I remember you. Pt is in a pleasant mood, and re-directable when he became mildly agitated related to his roommates behaviors. S/I, H/I: Pt denies A/VH: Pt denies, but is observed to be responding to IS Sleep: Pt only slept 4.5 hours per the stretching machine operator, but he states he feels rested. ADL's: Independent Group attendance: No groups today. Were Meds taken: Yes Any med S/E: None noted or reported. Mental Status Exam Appearance: Older appearing gentleman with glasses, dressed in jeans, a purple t-shirt, and black shoes Eye contact: Good. Behavior: Pleasant, cooperative, intrusive and loud at times, redirects easily Speech: Clear, audible, loud at times. Mood: Pleasant, Mildly agitated at times but easily redirected Affect: Friendly Thought process: Mildly disorganized, delusional Thought Content: Various comments related to direct situation and also delusions Cognition: A/O X 3 Insight: Poor Judgment: Poor Interventions PRN's used: Nicotine lozenges Therapeutic interventions: 1:1 assessment, therapeutic conversation, active listening, medication administration/education/monitoring, behavior monitoring and intervention as needed; reality orientation, distraction, redirection, limit setting, provided encouragement and positive reinforcement, Q 15 minute safety checks. Restraints/seclusion/emergency medication: N/A Justification of Continued Inpatient Treatment: Patient is LPS conserved. Patient requires a safe and therapeutic milieu while awaiting placement.
[2021-02-24] MEDS: olanzapine 10mg tablet PO SCH ×2 (17:56→20:38)
[2021-02-24 20:00] VITALS: BP 119/78
[2021-02-24] MEDS: divalproex sodium 500mg tablet.DR PO SCH (20:37)
[2021-02-24] MEDS: carbamide peroxide 15ml bottle RIGHT EAR SCH (20:44)
[2021-02-24] MEDS: quetiapine 100mg tablet PO SCH (20:49)
--- NOTE | 2021-02-24 23:29 | NUR ---
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 Pt Public Guardian is Thuy Frost phone number #[phone]. Pt was at [place], and was becoming paranoid about his finances. It was found that $200 of his PNI money was unaccounted for and this escalated the patient. Pt began having outbursts of anger and became increasingly paranoid and delusional towards staff and peers. Assessment What has happened this shift: Patient isolated in his room this shift. He was up for snacks. Patient is cooperative. He was delusional in nature. Mediation compliant. He denies S/I, H/I, or any problems. S/I, H/I: Pt denies A/VH: Pt denies Sleep: Will tally at 0500 hours ADL's: Independent Group attendance: No groups today. Were Meds taken: Yes, with some reluctance Any med S/E: None noted or reported. Mental Status Exam Appearance: Mildly disheveled wearing casual attire Eye contact: Good. Behavior: Pleasant, labile, cooperative, intrusive and loud at times, redirects easily. Speech: Clear, audible, loud at times. Mood: Labile, paranoid Affect: Flat Thought process: Mildly disorganized, delusional. Thought Content: Cognition: A/O X 3 Insight: Poor Judgment: Poor Interventions PRN's used: Therapeutic interventions: 1:1 assessment, therapeutic conversation, active listening, medication administration/education/monitoring, behavior monitoring and intervention as needed; reality orientation, distraction, redirection, limit setting, provided encouragement and positive reinforcement, Q 15 minute safety checks. Restraints/seclusion/emergency medication: N/A Justification of Continued Inpatient Treatment: Patient is LPS conserved. Patient requires a safe and therapeutic milieu while awaiting placement.
[2021-02-25] MEDS: haloperidol 5mg tablet PO PRN ×2 (00:31→22:08)
[2021-02-25 08:00] VITALS: BP 116/72
[2021-02-25] MEDS: trihexyphenidyl HCL 5 MG tablet PO SCH ×3 (08:29→20:17)
[2021-02-25] MEDS: atorvastatin 10mg tablet PO SCH (08:29)
[2021-02-25] MEDS: divalproex 250mg tablet, delayed-release PO SCH (08:30)
[2021-02-25] MEDS: NICOTINE POLACRILEX 2 MG LOZENGE BC PRN ×3 (08:30→18:02)
[2021-02-25] MEDS: pantoprazole 40mg Tablet.DR PO SCH (08:30)
[2021-02-25] MEDS: carbamide peroxide 15ml bottle RIGHT EAR SCH ×2 (08:31→20:18)
[2021-02-25] MEDS: haloperidol 5mg tablet PO SCH ×4 (08:31→20:17)
--- NOTE | 2021-02-25 15:50 | NUR ---
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 Pt Public Guardian is Thuy Frost phone number #[phone]. Pt was at [place], and was becoming paranoid about his finances. It was found that $200 of his PNI money was unaccounted for and this escalated the patient. Pt began having outbursts of anger and became increasingly paranoid and delusional towards staff and peers. Assessment What has happened this shift: Pt spends most of the day isolating to his room with headphones on or pacing the halls with headphones on. When in his room he is heard throughout the day RIS. Pt usually will stay in his room until he can control the internal stimuli. Pt cooperative with staff when asked to move to a private room. Praised Hardik for "working with staff and being cooperative." Pt appeared proud of himself and said, "you're welcome." S/I, H/I: Pt denies A/VH: Pt denies, but is observed to be responding to IS Sleep: Pt up all shift ADL's: Independent Group attendance: No Were Meds taken: Yes Any med S/E: None noted or reported. Mental Status Exam Appearance: Older appearing gentleman with glasses, dressed in jeans, a blue t-shirt, and black shoes Eye contact: Good. Behavior: Pleasant, cooperative, intrusive and loud at times, redirects easily Speech: Clear, audible, loud at times. Mood: Pleasant, cooperative Affect: Friendly Thought process: delusional Thought Content: Various comments related to direct situation and also delusions Cognition: A/O X 3 Insight: Poor Judgment: Poor Interventions PRN's used: Nicotine lozenges Therapeutic interventions: 1:1 assessment, therapeutic communication with active listening, medication administration/education/monitoring, behavior monitoring and intervention as needed; monitored Q 15 minute safety checks. Restraints/seclusion/emergency medication: N/A Justification of Continued Inpatient Treatment: Patient is LPS conserved. Patient requires a safe and therapeutic milieu while awaiting placement.
[2021-02-25] MEDS: olanzapine 10mg tablet PO SCH ×2 (18:02→20:17)
[2021-02-25 20:00] VITALS: BP 112/80
[2021-02-25] MEDS: divalproex sodium 500mg tablet.DR PO SCH (20:17)
[2021-02-25] MEDS: quetiapine 100mg tablet PO SCH (20:17)
--- NOTE | 2021-02-26 00:29 | NUR ---
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 Pt Public Guardian is Thuy Frost phone number #[phone]. Pt was at [place], and was becoming paranoid about his finances. It was found that $200 of his PNI money was unaccounted for and this escalated the patient. Pt began having outbursts of anger and became increasingly paranoid and delusional towards staff and peers. Assessment What has happened this shift: Received patient sitting in his chair looking the window. Pt was compliant with care and medication. Pt told staff writer during med pass I sometimes dont feel I am doing the right thing with my medications. I think the doctors are using me as a guinea pig. Pt ambulated halls or sat in the chair in his room. Pt ate snack in community room. No outburst noted. Pt requested PRN Haldol to help him sleep. S/I, H/I: Pt denies both. A/VH: Pt denies both. Sleep: Requested PRN Haldol to assist with sleeping. ADL's: Independent Group attendance: No night time nanny groups. Were Meds taken: Yes, without issue. Any med S/E: None noted or reported. Mental Status Exam Appearance: Mildly disheveled wearing casual attire. Med length hair. Eye contact: Good. Behavior: Cooperative, looking out his bedroom window. Kept to himself tonight. Speech: Clear, audible, normal rate/rhythm. Mood: Euthymic today. Affect: Constricted. Thought process: Mildly disorganized, delusional. Thought Content: Delusional nature. Cognition: A/O X 3 Insight: Poor Judgment: Poor Interventions PRN's used: Haldol. Therapeutic interventions: 1:1 assessment, therapeutic conversation, active listening, medication administration/education/monitoring, behavior monitoring and intervention as needed; reality orientation, distraction, redirection, limit setting, provided encouragement and positive reinforcement, Q 15 minute safety checks. Restraints/seclusion/emergency medication: N/A Justification of Continued Inpatient Treatment: Patient is LPS conserved. Patient requires a safe and therapeutic milieu while awaiting placement.
[2021-02-26] MEDS: LORazepam 1 MG tablet PO PRN (00:38)
--- NOTE | 2021-02-26 00:38 | NUR ---
Pt woke requesting "can I have a PRN." Pt states he can't sleep, even though pt looks tired and having difficult time keeping eyes closed. Pt has PRN Ativan, which curriculum writer administered 1mg. Pt sitting on side of bed took meds and said "thank you." Encouraged pt to relax, curriculum writer partially shut door to reduce light glare. Will continue to monitor.
[2021-02-26 07:44] VITALS: BP 104/71
[2021-02-26] MEDS: haloperidol 5mg tablet PO SCH ×4 (07:51→20:03)
[2021-02-26] MEDS: trihexyphenidyl HCL 5 MG tablet PO SCH ×3 (07:51→20:03)
[2021-02-26] MEDS: pantoprazole 40mg Tablet.DR PO SCH (07:51)
[2021-02-26] MEDS: atorvastatin 10mg tablet PO SCH (07:51)
[2021-02-26] MEDS: carbamide peroxide 15ml bottle RIGHT EAR SCH ×2 (07:53→20:43)
[2021-02-26] MEDS: divalproex 250mg tablet, delayed-release PO SCH (07:53)
[2021-02-26] MEDS: NICOTINE POLACRILEX 2 MG LOZENGE BC PRN ×3 (08:56→16:09)
--- NOTE | 2021-02-26 15:39 | NUR ---
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 Pt Public Guardian is Thuy Frost phone number #[phone]. Pt was at [place], and was becoming paranoid about his finances. It was found that $200 of his PNI money was unaccounted for and this escalated the patient. Pt began having outbursts of anger and became increasingly paranoid and delusional towards staff and peers. Assessment What has happened this shift: Pt is now on a combination of Olanzapine and Haldol with much improvement in his behavior during the day. Pt's fuse is longer as he is able to take disappointments easier by communicating his wants, or needs along with asking questions. He is pleasant interacting with staff and peers. S/I, H/I: Pt denies A/VH: Pt denies, but is observed to be responding to IS Sleep: Pt up all shift ADL's: Independent Group attendance: No Were Meds taken: Yes Any med S/E: None noted or reported. Mental Status Exam Appearance: Older appearing gentleman with glasses, dressed in jeans, a blue t-shirt, and black shoes wearing a dark blue mask. Eye contact: Good. Behavior: Pleasant, cooperative, redirects easily Speech: Clear, audible, loud at times. Mood: Pleasant, cooperative Affect: Friendly Thought process: delusional Thought Content: Various comments related to direct situation and also delusions Cognition: A/O X 3 Insight: Poor Judgment: Poor Interventions PRN's used: Nicotine lozenges Therapeutic interventions: 1:1 assessment, therapeutic communication with active listening, medication administration/education/monitoring, behavior monitoring and intervention as needed; monitored Q 15 minute safety checks. Restraints/seclusion/emergency medication: N/A Justification of Continued Inpatient Treatment: Patient is LPS conserved. Patient requires a safe and therapeutic milieu while awaiting placement.
[2021-02-26] MEDS: olanzapine 10mg tablet PO SCH ×2 (17:11→20:03)
[2021-02-26] MEDS: divalproex sodium 500mg tablet.DR PO SCH (20:03)
[2021-02-26] MEDS: quetiapine 100mg tablet PO SCH (20:03)
[2021-02-26 23:09] VITALS: BP 109/78
--- NOTE | 2021-02-27 | NUR ---
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 Pt Public Guardian is Thuy Frost phone number #[phone]. Pt was at [place], and was becoming paranoid about his finances. It was found that $200 of his PNI money was unaccounted for and this escalated the patient. Pt began having outbursts of anger and became increasingly paranoid and delusional towards staff and peers. Assessment What has happened this shift: The patient is in a good mood tonight. He is out on the unit socializing or walking wearing headphones. He continues to make occasional delusional statements, but is more able to handle what is going on around him without blowing up. The patient has been pleasant and better able to control his anger. He was compliant with medications, and states this time the ear drops will finally fix his ear problem. S/I, H/I: Denies. A/VH: Denies. Sleep: See sleep assessment. ADL's: Independent Group attendance: No night groups. Were Meds taken: Yes. Any med S/E: None reported or observed. Mental Status Exam Appearance: Disheveled, wearing casual attire. Med length greasy looking hair. Eye contact: Good. Behavior: Cooperative, pleasant, isolative. Speech: Clear, audible, normal rate/rhythm. Mood: Euthymic. Affect: Constricted. Thought process: Mildly disorganized, delusional. Thought Content: Delusional nature. Cognition: A/O X 3 Insight: Poor Judgment: Poor Interventions PRN's used: Therapeutic interventions: 1:1 assessment, therapeutic conversation, active listening, medication administration/education/monitoring, behavior monitoring and intervention as needed; reality orientation, distraction, redirection, limit setting, provided encouragement and positive reinforcement, Q 15 minute safety checks. Restraints/seclusion/emergency medication: N/A Justification of Continued Inpatient Treatment: Patient is LPS conserved. Patient requires a safe and therapeutic milieu while awaiting placement.
[2021-02-27] MEDS: haloperidol 5mg tablet PO PRN (03:30)
[2021-02-27 07:24] VITALS: BP 109/70
[2021-02-27] MEDS: divalproex 250mg tablet, delayed-release PO SCH (07:28)
[2021-02-27] MEDS: pantoprazole 40mg Tablet.DR PO SCH (07:28)
[2021-02-27] MEDS: atorvastatin 10mg tablet PO SCH (07:28)
[2021-02-27] MEDS: trihexyphenidyl HCL 5 MG tablet PO SCH ×3 (07:28→20:00)
[2021-02-27] MEDS: haloperidol 5mg tablet PO SCH ×4 (07:29→20:01)
[2021-02-27] MEDS: carbamide peroxide 15ml bottle RIGHT EAR SCH ×2 (08:02→20:02)
[2021-02-27] MEDS: NICOTINE POLACRILEX 2 MG LOZENGE BC PRN ×2 (09:00→13:37)
[2021-02-27] MEDS: acetaminophen 325mg tablet PO PRN (09:04)
--- NOTE | 2021-02-27 13:28 | NUR ---
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 Pt Public Guardian is Thuy Frost phone number #[phone]. Pt was at [place], and was becoming paranoid about his finances. It was found that $200 of his PNI money was unaccounted for and this escalated the patient. Pt began having outbursts of anger and became increasingly paranoid and delusional towards staff and peers. Assessment What has happened this shift: Pt was up before breakfast and cooperative with medications. Pt continues to have bizarre delusions. Pt requested Tylenol from the charge nurse. When asked where he was hurting, he told her that his whole body was hurting because he did too much crack. When this nurse went to administer the PRN Tylenol 650 mg at 0904, asked pt if his whole body was hurting. Pt replied, "no, actually it's my butthole...yeah they snapped my tailbone...I don't have a tailbone, the production tool engineer did it...about 10 or 15 years ago." Later in the shift, pt approached this nurse to say, "I need to change rooms, I'm not paying for the damages. Someone ripped the door off, I think it was one of those kids last year." Pt is in a private room that does not have a bathroom door. His bathroom entrance does face away from his room door. Pt complained that people walk in and look at him while he is using the bathroom. States he wants another room. Evidently a door has been ordered. No appropriate rooms available for a room change at this time. Discussed with wire charger and a plan was devised for Hardik to partially close his bedroom door when he has to use the bathroom to signal to techs doing the rounds that he is using the bathroom. Or he can ask to use the [facility] bathroom. S/I, H/I: Pt denies A/VH: Pt denies Sleep: Pt slept 8 hours last night per noc shift report, took a nap before lunch. ADL's: Independent Group attendance: N/A Were Meds taken: Yes Any med S/E: None noted or reported. Mental Status Exam Appearance: Older appearing gentleman with glasses, dressed in jeans, a long sleeved dark colored dress shirt, a silver lama sports jacket, and black shoes wearing a dark blue mask. Eye contact: Good. Behavior: Pleasant, cooperative, redirects easily Speech: Clear, audible, loud at times. Mood: Good Affect: Pleasant Thought process: delusional Thought Content: He doesn't have a tailbone, he wants a room change. Cognition: A/O X 3 Insight: Poor Judgment: Poor Interventions PRN's used: Nicotine lozenges Therapeutic interventions: 1:1 assessment, therapeutic conversation, active listening, medication administration/education/monitoring, behavior monitoring and intervention as needed; reality orientation, distraction, redirection, provided positive reinforcement, Q 15 minute safety checks. Restraints/seclusion/emergency medication: N/A Justification of Continued Inpatient Treatment: Patient is LPS conserved. Patient requires a safe and therapeutic milieu while awaiting placement.
[2021-02-27] MEDS: olanzapine 10mg tablet PO SCH ×2 (17:11→20:00)
[2021-02-27 19:56] VITALS: BP 122/83
[2021-02-27] MEDS: divalproex sodium 500mg tablet.DR PO SCH (20:01)
[2021-02-27] MEDS: quetiapine 100mg tablet PO SCH (20:01)
[2021-02-27] MEDS: LORazepam 1 MG tablet PO PRN (23:02)
--- NOTE | 2021-02-28 00:34 | NUR ---
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 Pt Public Guardian is Thuy Frost phone number #[phone]. Pt was at [place], and was becoming paranoid about his finances. It was found that $200 of his PNI money was unaccounted for and this escalated the patient. Pt began having outbursts of anger and became increasingly paranoid and delusional towards staff and peers. Assessment What has happened this shift: The patient was out on the unit at shift change. He has remained cheerful, and his mood has been stable, without outbursts on this shift. He greets me by name as I walk in. The patient likes to talk about his past, some real, some delusional. He has remained in good mood all evening, going to bed right after HS med pass, so he can receive his ear drops. He was feeling "itchy scratchy" at 2300, and asked for Ativan. He has been asleep since then. S/I, H/I: Denies. A/VH: "I hear voices telling me to keep up the good work" Sleep: See sleep assessment. ADL's: Independent Group attendance: No night groups. Were Meds taken: Yes. Any med S/E: None reported or observed. Mental Status Exam Appearance: Disheveled, wearing casual attire. Med. length greasy looking hair. Eye contact: Good. Behavior: Cooperative, pleasant, isolative, cheerful, delusional. Speech: Clear, audible, normal rate/rhythm. Mood: Euthymic. Affect: Constricted. Thought process: Mildly disorganized, delusional. Thought Content: Delusional nature. Cognition: A/O X 3 Insight: Poor Judgment: Poor Interventions PRN's used: Ativan. Therapeutic interventions: 1:1 assessment, therapeutic conversation, active listening, medication administration/education/monitoring, behavior monitoring and intervention as needed; reality orientation, distraction, redirection, limit setting, provided encouragement and positive reinforcement, Q 15 minute safety checks. Restraints/seclusion/emergency medication: N/A Justification of Continued Inpatient Treatment: Patient is LPS conserved. Patient requires a safe and therapeutic milieu while awaiting placement.
[2021-02-28] MEDS: divalproex 250mg tablet, delayed-release PO SCH (07:41)
[2021-02-28] MEDS: haloperidol 5mg tablet PO SCH ×4 (07:41→20:24)
[2021-02-28] MEDS: atorvastatin 10mg tablet PO SCH (07:41)
[2021-02-28] MEDS: trihexyphenidyl HCL 5 MG tablet PO SCH ×3 (07:41→20:24)
[2021-02-28] MEDS: pantoprazole 40mg Tablet.DR PO SCH (07:41)
[2021-02-28] MEDS: carbamide peroxide 15ml bottle RIGHT EAR SCH ×2 (07:43→20:00)
[2021-02-28 07:52] VITALS: BP 108/60
[2021-02-28] MEDS: NICOTINE POLACRILEX 2 MG LOZENGE BC PRN ×2 (11:55→13:55)
--- NOTE | 2021-02-28 14:59 | NUR ---
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 Pt Public Guardian is Thuy Frost phone number #[phone]. Pt was at [place], and was becoming paranoid about his finances. It was found that $200 of his PNI money was unaccounted for and this escalated the patient. Pt began having outbursts of anger and became increasingly paranoid and delusional towards staff and peers. Assessment What has happened this shift: Pt was up before breakfast and cooperative with medications. Pt was calm and pleasant. Pt requested a PRN after lunch. Pt wanted a PRN Haldol. The PRN Haldol order is for 10 mg to be given along with Ativan 2 mg. Pt did not appear agitated. Pt appeared calm. Told pt he didn't seem agitated and that much medication didn't seem necessary. Offered pt a PRN Ativan, pt declined. Pt stated, "I'm just trying to recover...I killed it...an alien." Pt observed socializing a joking with peers while in the afternoon snack line. S/I, H/I: Pt denies A/VH: Pt denies Sleep: Pt slept 6.5 hours last night per noc shift report. ADL's: Independent Group attendance: N/A Were Meds taken: Yes Any med S/E: None noted or reported. Mental Status Exam Appearance: Older appearing gentleman with glasses, dressed in jeans, a purple t-shirt, a silver lama sports jacket, and black shoes wearing a dark blue mask. Eye contact: Good. Behavior: Pleasant, cooperative Speech: Clear, audible, loud at times. Mood: Good Affect: Blunted Thought process: Delusional Thought Content: He killed an alien. Cognition: A/O X 3 Insight: Poor Judgment: Poor Interventions PRN's used: Nicotine lozenges Therapeutic interventions: 1:1 assessment, therapeutic conversation, active listening, medication administration/education/monitoring, behavior monitoring and intervention as needed; reality orientation, distraction, redirection, provided positive reinforcement, Q 15 minute safety checks. Restraints/seclusion/emergency medication: N/A Justification of Continued Inpatient Treatment: Patient is LPS conserved. Patient requires a safe and therapeutic milieu while awaiting placement. Addendum: 02/28/21 at 1723 by Mi Diaz RN (Lee) Observed pt sitting in his room on his bed responding to internal stimuli, talking to himself, "I need my meds, I've got to go to work!" 1800 Haldol and Zyprexa administered. Pt was pleasant and cooperative.
[2021-02-28] MEDS: olanzapine 10mg tablet PO SCH ×2 (17:18→20:24)
[2021-02-28] MEDS: haloperidol 5mg tablet PO PRN (19:20)
[2021-02-28 20:00] VITALS: BP 133/83
[2021-02-28] MEDS: quetiapine 100mg tablet PO SCH (20:24)
[2021-02-28] MEDS: divalproex sodium 500mg tablet.DR PO SCH (20:24)
--- NOTE | 2021-03-01 02:49 | NUR ---
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 Pt Public Guardian is Thuy Frost phone number #[phone]. Pt was at [place], and was becoming paranoid about his finances. It was found that $200 of his PNI money was unaccounted for and this escalated the patient. Pt began having outbursts of anger and became increasingly paranoid and delusional towards staff and peers. Assessment What has happened this shift: Pt up and walking the hallways, pt stated he had a good day and he enjoyed dinner this evening but it wasnt enough food for him. At 1915 pt became agitated and irritable about wanting his brothers phone number in a folder in his locker. When staff found the number for him he stated, no, thats not it, you guys will never figure me out. I guess Ill be here another 40,000 years! Pt given 10MG Haldol with good effect. Pt had snacks and was calm and cooperative at med pass. S/I, H/I: Pt denies A/VH: Pt denies Sleep: ADL's: Independent Group attendance: N/A Were Meds taken: Yes Any med S/E: None noted or reported. Mental Status Exam Appearance: Older appearing gentleman with glasses, dressed in jeans, a purple t-shirt, a silver lama sports jacket, and black shoes wearing a dark blue mask. Eye contact: Good. Behavior: Pleasant at the beginning of shift, irritable, agitated as the night progressed Speech: Clear, audible, loud at times. Mood: Good Affect: Blunted Thought process: Delusional Thought Content: Getting his brothers number; you people will never figure me out. Cognition: A/O X 3 Insight: Poor Judgment: Poor Interventions PRN's used: Haldol 10 MG Therapeutic interventions: 1:1 assessment, therapeutic conversation, active listening, medication administration/education/monitoring, behavior monitoring and intervention as needed; reality orientation, distraction, redirection, provided positive reinforcement, Q 15 minute safety checks. Restraints/seclusion/emergency medication: N/A Justification of Continued Inpatient Treatment: Patient is LPS conserved. Patient requires a safe and therapeutic milieu while awaiting placement.
[2021-03-01] MEDS: pantoprazole 40mg Tablet.DR PO SCH (07:56)
[2021-03-01] MEDS: acetaminophen 325mg tablet PO PRN (07:56)
[2021-03-01] MEDS: atorvastatin 10mg tablet PO SCH (07:57)
[2021-03-01] MEDS: haloperidol 5mg tablet PO SCH ×4 (07:57→20:20)
[2021-03-01] MEDS: divalproex 250mg tablet, delayed-release PO SCH (07:57)
[2021-03-01] MEDS: trihexyphenidyl HCL 5 MG tablet PO SCH ×3 (07:57→20:20)
[2021-03-01] MEDS: carbamide peroxide 15ml bottle RIGHT EAR SCH ×2 (08:00→20:00)
[2021-03-01 08:30] VITALS: BP 93/63
[2021-03-01 08:31] VITALS: BP 103/70
[2021-03-01] MEDS: NICOTINE POLACRILEX 2 MG LOZENGE BC PRN (08:55)
--- NOTE | 2021-03-01 15:01 | NUR ---
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 Pt Public Guardian is Thuy Frost phone number #[phone]. Pt was at [place], and was becoming paranoid about his finances. It was found that $200 of his PNI money was unaccounted for and this escalated the patient. Pt began having outbursts of anger and became increasingly paranoid and delusional towards staff and peers. Assessment What has happened this shift: Hardik was awake with most of the patients early this morning, patient is seen sitting in the day room watching tv, pacing the hallway or sitting on his bed. 1100 patient talking very loud in his room, patient mentioned that he was in "[employer]" magazine because of the size of his d*ck, this casualty underwriter asked Hardik to keep that information to him self. Patient has had very little change in his mental illness in the [ast few days, for no reason at all patient mood liable explodes. S/I, H/I: Denies A/VH: Denies Sleep: Per NOC 8.45 ADL's: Independent Group attendance: n/a Were meds taken: Yes Any med S/E: Denies Mental Status Exam Appearance: Casual in home clothes, wearing suit jacket. Eye contact: Fair Behavior: Cooperative, calm, pacing halls and sitting in room in his chair listening to his headphones. Conversing with peers and staff. Speech: WNL Mood: Euthymic Affect: Flat Thought process: Linear Thought Content: Circumstantial Cognition: A&Ox3 not to situation Insight: Poor Judgment: Poor Interventions PRN's used: none today Therapeutic interventions: 1:1 assessment, therapeutic conversation, active listening, medication administration/education/monitoring, behavior monitoring and intervention as needed; reality orientation, limit setting, distraction, redirection, provided encouragement and positive reinforcement, Q 15 minute safety checks. Restraints/seclusion/emergency medication: N/A Justification of Continued Inpatient Treatment: Patient requires a safe and therapeutic milieu while waiting placement. Patient is LPS conserved
[2021-03-01] MEDS: LORazepam 1 MG tablet PO PRN (16:27)
[2021-03-01] MEDS: olanzapine 10mg tablet PO SCH ×2 (17:07→20:21)
[2021-03-01 19:44] VITALS: BP 122/79
[2021-03-01] MEDS: quetiapine 100mg tablet PO SCH (20:20)
[2021-03-01] MEDS: divalproex sodium 500mg tablet.DR PO SCH (20:21)
[2021-03-01] MEDS: haloperidol 5mg tablet PO PRN (22:23)
--- NOTE | 2021-03-02 00:06 | NUR ---
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 Pt Public Guardian is Thuy Frost phone number #[phone]. Pt was at [place], and was becoming paranoid about his finances. It was found that $200 of his PNI money was unaccounted for and this escalated the patient. Pt began having outbursts of anger and became increasingly paranoid and delusional towards staff and peers. Assessment What has happened this shift: Received pt up and walking the hallways with headphones on, pt stated he had a pretty s day until he received some Ativan this afternoon states he feels better and his mood is much better. Pt had snacks took NOC meds and went to bed. Pt up several times, 10MG Haldol given. S/I, H/I: Denies A/VH: Denies Sleep: ADL's: Independent Group attendance: n/a Were meds taken: Yes Any med S/E: Denies Mental Status Exam Appearance: Casual in home clothes, wearing suit jacket. Eye contact: Fair Behavior: Cooperative, calm, pacing halls and sitting in room in his chair listening to his headphones. Speech: WNL Mood: Euthymic Affect: Flat Thought process: Linear Thought Content: Circumstantial Cognition: A&Ox3 not to situation Insight: Poor Judgment: Poor Interventions PRN's used: 10MG Haldol Therapeutic interventions: 1:1 assessment, therapeutic conversation, active listening, medication administration/education/monitoring, behavior monitoring and intervention as needed; reality orientation, limit setting, distraction, redirection, provided encouragement and positive reinforcement, Q 15 minute safety checks. Restraints/seclusion/emergency medication: N/A Justification of Continued Inpatient Treatment: Patient requires a safe and therapeutic milieu while waiting placement. Patient is LPS conserved
[2021-03-02 08:00] VITALS: BP 107/58
[2021-03-02] MEDS: carbamide peroxide 15ml bottle RIGHT EAR SCH ×2 (08:00→20:37)
[2021-03-02] MEDS: pantoprazole 40mg Tablet.DR PO SCH (08:21)
[2021-03-02] MEDS: divalproex 250mg tablet, delayed-release PO SCH (08:22)
[2021-03-02] MEDS: trihexyphenidyl HCL 5 MG tablet PO SCH ×3 (08:22→20:33)
[2021-03-02] MEDS: haloperidol 5mg tablet PO SCH ×4 (08:22→20:34)
[2021-03-02] MEDS: atorvastatin 10mg tablet PO SCH (08:22)
[2021-03-02] MEDS: NICOTINE POLACRILEX 2 MG LOZENGE BC PRN ×3 (08:41→21:13)
--- NOTE | 2021-03-02 09:13 | NUR ---
Reassessment: Pt continues with mostly 100% PO intake on regular diet meeting estimated nutrient needs. LB 02/28. No nutrition intervention warranted at this time. Will continue to follow. Recommend: 1. Continue regular diet 2. Bowel care as needed 3. Weekly scaled weights Addendum: 03/02/21 at [address] Amended: Links added.
[2021-03-02] MEDS: LORazepam 1 MG tablet PO PRN ×2 (09:41→20:35)
--- NOTE | 2021-03-02 13:11 | NUR ---
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 Pt Public Guardian is Thuy Frost phone number #[phone]. Pt was at [place], and was becoming paranoid about his finances. It was found that $200 of his PNI money was unaccounted for and this escalated the patient. Pt began having outbursts of anger and became increasingly paranoid and delusional towards staff and peers. Assessment What has happened this shift: Hardik was awake with most of the patients early this morning, patient is seen sitting in the day room watching tv, pacing the hallway or sitting on his bed. Patient has had very little change in his mental illness in the last few days, for no reason at all patient mood liable explodes. S/I, H/I: Denies A/VH: Denies Sleep: Per NOC 8.5 ADL's: Independent Group attendance: n/a Were meds taken: Yes Any med S/E: Denies Mental Status Exam Appearance: Casual in home clothes, wearing suit jacket. Eye contact: Fair Behavior: Cooperative, calm, pacing halls and sitting in room in his chair listening to his headphones. Conversing with peers and staff. Speech: WNL Mood: Euthymic Affect: Flat Thought process: Linear Thought Content: Circumstantial Cognition: A&Ox3 not to situation Insight: Poor Judgment: Poor Interventions PRN's used: none today Therapeutic interventions: 1:1 assessment, therapeutic conversation, active listening, medication administration/education/monitoring, behavior monitoring and intervention as needed; reality orientation, limit setting, distraction, redirection, provided encouragement and positive reinforcement, Q 15 minute safety checks. Restraints/seclusion/emergency medication: N/A Justification of Continued Inpatient Treatment: Patient requires a safe and therapeutic milieu while waiting placement. Patient is LPS conserved. This appears to be patints baseline.
[2021-03-02] MEDS: olanzapine 10mg tablet PO SCH ×2 (17:12→20:34)
[2021-03-02 20:07] VITALS: BP 127/85
[2021-03-02] MEDS: quetiapine 100mg tablet PO SCH ×2 (20:34→23:02)
[2021-03-02] MEDS: divalproex sodium 500mg tablet.DR PO SCH (20:34)
[2021-03-02] MEDS: acetaminophen 325mg tablet PO PRN (20:35)
[2021-03-03] MEDS: LORazepam 1 MG tablet PO PRN (02:45)
--- NOTE | 2021-03-03 04:38 | NUR ---
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 Pt Public Guardian is Thuy Frost phone number #[phone]. Pt was at [place], and was becoming paranoid about his finances. It was found that $200 of his PNI money was unaccounted for and this escalated the patient. Pt began having outbursts of anger and became increasingly paranoid and delusional towards staff and peers. Assessment What has happened this shift: Patient pacing the unit and listening to headphones at the beginning of shift. Pleasant and cooperative with care, compliant with all medication. PRN Ativan x2 provided for c/o anxiety, Tylenol for c/o 5/10 R shoulder pain and Nicotine lozenge provided upon request. Patient participated in HS snack and shortly after retired to bed. Patient observed having difficulty sleeping and became slightly irritable when medication not available right away but easily redirected. S/I, H/I: Denies A/VH: Denies Sleep: Refer to sleep assessment ADL's: Independent Group attendance: NA Were meds taken: Yes Any med S/E: None observed or reported Mental Status Exam Appearance: Neat, clean and appropriate Eye contact: Fair Behavior: Cooperative, listening to headphones, wandering the unit, isolative to self Speech: WNL Mood: Depressed Affect: Flat Thought process: Linear Thought Content: Sleep Cognition: A&Ox3 not to situation Insight: Poor Judgment: Poor Interventions PRN's used: Ativan x2, Nicotine lozenge Therapeutic interventions: 1:1 assessment, therapeutic conversation, active listening, medication administration/education/monitoring, behavior monitoring and intervention as needed; reality orientation, limit setting, distraction, redirection, provided encouragement and positive reinforcement, Q 15 minute safety checks. Restraints/seclusion/emergency medication: N/A Justification of Continued Inpatient Treatment: Patient requires a safe and therapeutic milieu while waiting placement. Patient is LPS conserved
[2021-03-03 08:00] VITALS: BP 113/76
[2021-03-03] MEDS: atorvastatin 10mg tablet PO SCH (08:01)
[2021-03-03] MEDS: haloperidol 5mg tablet PO SCH ×4 (08:02→20:24)
[2021-03-03] MEDS: pantoprazole 40mg Tablet.DR PO SCH (08:02)
[2021-03-03] MEDS: trihexyphenidyl HCL 5 MG tablet PO SCH ×3 (08:02→20:24)
[2021-03-03] MEDS: divalproex 250mg tablet, delayed-release PO SCH (08:02)
[2021-03-03] MEDS: carbamide peroxide 15ml bottle RIGHT EAR SCH ×2 (08:04→20:26)
[2021-03-03] MEDS: NICOTINE POLACRILEX 2 MG LOZENGE BC PRN ×4 (09:13→18:55)
--- NOTE | 2021-03-03 11:08 | NUR ---
PLACEMENT UPDATE Packet at [facility] and [facility]. Declined at [facility]. LEXIE Squires
--- NOTE | 2021-03-03 15:42 | NUR ---
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 Pt Public Guardian is Thuy Frost phone number #[phone]. Pt was at [place], and was becoming paranoid about his finances. It was found that $200 of his PNI money was unaccounted for and this escalated the patient. Pt began having outbursts of anger and became increasingly paranoid and delusional towards staff and peers. Assessment What has happened this shift: Hardik was awake with most of the patients early this morning, patient is seen sitting in the day room watching tv, pacing the hallway or sitting on his bed. Patient has had very little change in his mental illness in the last few days, for no reason at all patient mood liable explodes. Hardik did mention that he is made at [facility] because they have his money and won't send it to him. Hardik has been on the phone off and on today trying to get a hold of Katie at , no luck today. S/I, H/I: Denies A/VH: Denies Sleep: Per NOC 8.5 ADL's: Independent Group attendance: n/a Were meds taken: Yes Any med S/E: Denies Mental Status Exam Appearance: Casual in home clothes, wearing suit jacket. Eye contact: Fair Behavior: Cooperative, calm, pacing halls and sitting in room in his chair listening to his headphones. Conversing with peers and staff. Speech: WNL Mood: Euthymic Affect: liable Thought process: Linear Thought Content: Circumstantial Cognition: A&Ox3 not to situation Insight: Poor Judgment: Poor Interventions PRN's used: Nicotine Doris Therapeutic interventions: 1:1 assessment, therapeutic conversation, active listening, medication administration/education/monitoring, behavior monitoring and intervention as needed; reality orientation, limit setting, distraction, redirection, provided encouragement and positive reinforcement, Q 15 minute safety checks. Restraints/seclusion/emergency medication: N/A Justification of Continued Inpatient Treatment: Patient requires a safe and therapeutic milieu while waiting placement. Patient is LPS conserved. This appears to be patents baseline.
[2021-03-03] MEDS: olanzapine 10mg tablet PO SCH ×2 (17:48→20:24)
[2021-03-03 20:00] VITALS: BP 119/7
[2021-03-03] MEDS: divalproex sodium 500mg tablet.DR PO SCH (20:24)
[2021-03-03] MEDS: quetiapine 100mg tablet PO SCH (20:24)
[2021-03-04] MEDS: acetaminophen 325mg tablet PO PRN (00:53)
--- NOTE | 2021-03-04 02:08 | NUR ---
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 Pt Public Guardian is Thuy Frost phone number #[phone]. Pt was at [place], and was becoming paranoid about his finances. It was found that $200 of his PNI money was unaccounted for and this escalated the patient. Pt began having outbursts of anger and became increasingly paranoid and delusional towards staff and peers. Assessment What has happened this shift: Patient pacing the unit and listening to headphones at the beginning of shift. Pleasant and cooperative with care, compliant with all medication. Patient participated in HS snack and shortly after retired to bed. Patient got up around 1330 and requested tylenol for right hip pain. Pt then returned to sleep. S/I, H/I: Denies A/VH: Denies Sleep: Refer to sleep assessment ADL's: Independent Group attendance: NA Were meds taken: Yes Any med S/E: None observed or reported Mental Status Exam Appearance: Neat, clean and appropriate Eye contact: Fair Behavior: Cooperative, listening to headphones, wandering the unit, isolative to self Speech: WNL Mood: Depressed Affect: Flat Thought process: Linear Thought Content: Sleep Cognition: A&Ox3 not to situation Insight: Poor Judgment: Poor Interventions PRN's used: tylenol Therapeutic interventions: 1:1 assessment, therapeutic conversation, active listening, medication administration/education/monitoring, behavior monitoring and intervention as needed; reality orientation, limit setting, distraction, redirection, provided encouragement and positive reinforcement, Q 15 minute safety checks. Restraints/seclusion/emergency medication: N/A Justification of Continued Inpatient Treatment: Patient requires a safe and therapeutic milieu while waiting placement. Patient is LPS conserved
[2021-03-04] MEDS: LORazepam 1 MG tablet PO PRN (04:59)
[2021-03-04] MEDS: NICOTINE POLACRILEX 2 MG LOZENGE BC PRN ×5 (07:45→19:09)
[2021-03-04 08:00] VITALS: BP 99/56
[2021-03-04] MEDS: pantoprazole 40mg Tablet.DR PO SCH (08:25)
[2021-03-04] MEDS: trihexyphenidyl HCL 5 MG tablet PO SCH ×3 (08:25→20:29)
[2021-03-04] MEDS: atorvastatin 10mg tablet PO SCH (08:26)
[2021-03-04] MEDS: divalproex 250mg tablet, delayed-release PO SCH (08:26)
[2021-03-04] MEDS: haloperidol 5mg tablet PO SCH ×4 (08:26→20:29)
[2021-03-04] MEDS: carbamide peroxide 15ml bottle RIGHT EAR SCH ×2 (08:27→20:00)
--- NOTE | 2021-03-04 13:32 | NUR ---
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 Pts Public Guardian is Thuy Frost phone number #[phone]. Pt was at [place], and was becoming paranoid about his finances. It was found that $200 of his PNI money was unaccounted for and this escalated the patient. Pt began having outbursts of anger and became increasingly paranoid and delusional towards staff and peers. Assessment What has happened this shift: Received pt. up in the hallway at the beginning of the shift, neatly dressed in his suit and listening to headphones. He greeted this engineering writer appropriately, and attended breakfast in the Group Room. 1:1 completed later at bedside, pt. presents as pleasant and animated. He denies any S/I or H/I, however does admit to some V/GATES. When questioned further by this engineering writer, pt. states, "I see things come out of the vents in my room." Pt. continues on in a somewhat tangental manner about some paranoid delusions that random others may want to hurt him, and his belief that he is speaking in code to protect himself. He is able to be redirected, and this engineering writer encouraged pt. to notify staff of any increased anxiety, he reported understanding. Pt. remained in pleasant spirits throughout the morning and afternoon, mostly listening to headphones. He was able to attend morning group, but interacts minimally with others. Will continue to monitor. S/I, H/I: Denies A/VH: Pt. reports some intermittent V/GATES Sleep: Sleep hours are 7.75 ADL's: Pt. requires some direction Group attendance: Yes Were meds taken: Yes Any med S/E: None Mental Status Exam Appearance: Neatly dressed, wearing his suit Eye contact: Good, intense at times Behavior: Cooperative Speech:WNL with occasional angry outbursts Mood: Pleasant Affect: Animated Thought process: Tangental, but is able to be redirected Thought Content: Ongoing paranoid delusions, however is able to be redirected Cognition: A&O X3 Insight: Poor Judgment: Fair Interventions PRN's used: Nicotine Lozenge Therapeutic interventions: Maintained a safe and therapeutic environment, ensured contract for safety, provided clear and simple instructions, attempted to orient to reality, monitored behaviors and need for intervention, provided active listening, and maintained Q 15min safety checks. Restraints/seclusion/emergency medication: N/A Justification of Continued Inpatient Treatment: Per Bautista PA, pt. requires a safe and supportive environment while awaiting placement.
[2021-03-04] MEDS: olanzapine 10mg tablet PO SCH ×2 (17:11→20:29)
[2021-03-04 20:00] VITALS: BP 137/86
[2021-03-04] MEDS: quetiapine 100mg tablet PO SCH (20:29)
[2021-03-04] MEDS: divalproex sodium 500mg tablet.DR PO SCH (20:29)
[2021-03-05] MEDS: LORazepam 1 MG tablet PO PRN (00:26)
--- NOTE | 2021-03-05 02:25 | NUR ---
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 Pts Public Guardian is Thuy Frost phone number #[phone]. Pt was at [place], and was becoming paranoid about his finances. It was found that $200 of his PNI money was unaccounted for and this escalated the patient. Pt began having outbursts of anger and became increasingly paranoid and delusional towards staff and peers. Assessment What has happened this shift: Received pt up walking the hallways, greeted this RN appropriately and requested a nicotine lozenge. Pleasant and cooperative with care, compliant with all medication. Patient participated in HS snack and shortly after retired to bed. SI/H/I: Denies A/VH: Denies Sleep: ADL's: Pt. requires some direction Group attendance: Yes Were meds taken: Yes Any med S/E: None Mental Status Exam Appearance: Neatly dressed, wearing his suit Eye contact: Good, intense at times Behavior: Cooperative, listening to headphones, wandering the unit, isolative to self Speech: WNL Mood: Pleasant Affect: Animated Thought process: Linear Thought Content: Sleep Cognition: A&O X3 Insight: Poor Judgment: Fair Interventions PRN's used: Nicotine Lozenge Therapeutic interventions: Maintained a safe and therapeutic environment, ensured contract for safety, provided clear and simple instructions, attempted to orient to reality, monitored behaviors and need for intervention, provided active listening, and maintained Q 15min safety checks. Restraints/seclusion/emergency medication: N/A Justification of Continued Inpatient Treatment: Per DIOGENES Baum, pt. requires a safe and supportive environment while awaiting placement.
[2021-03-05 08:00] VITALS: BP 99/64
[2021-03-05] MEDS: carbamide peroxide 15ml bottle RIGHT EAR SCH ×2 (08:00→20:00)
[2021-03-05] MEDS: pantoprazole 40mg Tablet.DR PO SCH (08:08)
[2021-03-05] MEDS: atorvastatin 10mg tablet PO SCH (08:08)
[2021-03-05] MEDS: divalproex 250mg tablet, delayed-release PO SCH (08:08)
[2021-03-05] MEDS: trihexyphenidyl HCL 5 MG tablet PO SCH ×3 (08:09→20:20)
[2021-03-05] MEDS: haloperidol 5mg tablet PO SCH ×4 (08:09→20:20)
[2021-03-05] MEDS: NICOTINE POLACRILEX 2 MG LOZENGE BC PRN ×4 (08:35→19:32)
--- NOTE | 2021-03-05 17:02 | NUR ---
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 Pt Public Guardian is Thuy Frost phone number #[phone]. Pt was at [place], and was becoming paranoid about his finances. It was found that $200 of his PNI money was unaccounted for and this escalated the patient. Pt began having outbursts of anger and became increasingly paranoid and delusional towards staff and peers. Assessment What has happened this shift: Hardik was awake with most of the patients early this morning, patient is seen sitting in the day room watching tv, pacing the hallway or sitting on his bed. This is very common for Hardik. Patient has had very little change in his mental illness in the last few days, for no reason at all patient mood liable explodes. Hardik had a good day today, no loud outburst and no talking telepathicly to Ashtyn or other people from his past. S/I, H/I: Denies A/VH: Denies Sleep: Per NOC 8.0 ADL's: Independent Group attendance: n/a Were meds taken: Yes Any med S/E: Denies Mental Status Exam Appearance: Casual in home clothes, wearing suit jacket and baseball cap Eye contact: Fair Behavior: Cooperative, calm, pacing halls and sitting in room in his chair listening to his headphones. Conversing with peers and staff. Speech: WNL Mood: Euthymic Affect: liable Thought process: Linear Thought Content: Circumstantial Cognition: A&Ox3 not to situation Insight: Poor Judgment: Poor Interventions PRN's used: Nicotine Doris Therapeutic interventions: 1:1 assessment, therapeutic conversation, active listening, medication administration/education/monitoring, behavior monitoring and intervention as needed; reality orientation, limit setting, distraction, redirection, provided encouragement and positive reinforcement, Q 15 minute safety checks. Restraints/seclusion/emergency medication: N/A Justification of Continued Inpatient Treatment: Patient requires a safe and therapeutic milieu while waiting placement. Patient is LPS conserved. This appears to be patents baseline.
[2021-03-05] MEDS: olanzapine 10mg tablet PO SCH ×2 (17:45→20:20)
[2021-03-05 20:00] VITALS: BP 108/76
[2021-03-05] MEDS: divalproex sodium 500mg tablet.DR PO SCH (20:20)
[2021-03-05] MEDS: quetiapine 100mg tablet PO SCH (20:20)
[2021-03-06] MEDS: LORazepam 1 MG tablet PO PRN ×2 (01:39→22:51)
--- NOTE | 2021-03-06 02:41 | NUR ---
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 Pt Public Guardian is Thuy Frost phone number #[phone]. Pt was at [place], and was becoming paranoid about his finances. It was found that $200 of his PNI money was unaccounted for and this escalated the patient. Pt began having outbursts of anger and became increasingly paranoid and delusional towards staff and peers. Assessment What has happened this shift: Pt up in his room looking out the window with headphones on. Hardik pleasant and polite with this RN, requested nicotine lozenge. Pt participated in NOC snacks, took all prescribed medication and went to bed shortly thereafter. S/I, H/I: Denies A/VH: Denies Sleep: ADL's: Independent Group attendance: n/a Were meds taken: Yes Any med S/E: Denies Mental Status Exam Appearance: Casual in home clothes, wearing suit jacket and baseball cap Eye contact: Fair Behavior: Cooperative, calm, pacing halls and sitting in room in his chair listening to his headphones. Conversing with peers and staff. Speech: WNL Mood: Euthymic Affect: liable Thought process: Linear Thought Content: Circumstantial Cognition: A&Ox3 not to situation Insight: Poor Judgment: Poor Interventions PRN's used: Nicotine Doris Therapeutic interventions: 1:1 assessment, therapeutic conversation, active listening, medication administration/education/monitoring, behavior monitoring and intervention as needed; reality orientation, limit setting, distraction, redirection, provided encouragement and positive reinforcement, Q 15 minute safety checks. Restraints/seclusion/emergency medication: N/A Justification of Continued Inpatient Treatment: Patient requires a safe and therapeutic milieu while waiting placement. Patient is LPS conserved. This appears to be patents baseline.
[2021-03-06] MEDS: acetaminophen 325mg tablet PO PRN ×2 (03:53→13:02)
[2021-03-06] MEDS: NICOTINE POLACRILEX 2 MG LOZENGE BC PRN ×4 (03:53→17:14)
[2021-03-06] MEDS: trihexyphenidyl HCL 5 MG tablet PO SCH ×3 (07:47→20:23)
[2021-03-06] MEDS: divalproex 250mg tablet, delayed-release PO SCH (07:47)
[2021-03-06] MEDS: atorvastatin 10mg tablet PO SCH (07:47)
[2021-03-06] MEDS: pantoprazole 40mg Tablet.DR PO SCH (07:47)
[2021-03-06] MEDS: haloperidol 5mg tablet PO SCH ×4 (07:48→20:24)
[2021-03-06] MEDS: carbamide peroxide 15ml bottle RIGHT EAR SCH ×2 (08:00→20:43)
[2021-03-06 08:31] VITALS: BP 111/66
--- NOTE | 2021-03-06 13:23 | NUR ---
PLACEMENT UPDATE Sent updated notes to [facility] [place] office for dates 02/23/21-03/05/21. LEXIE Squires
--- NOTE | 2021-03-06 14:30 | NUR ---
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 Pt Public Guardian is Thuy Frost phone number #[phone]. Pt was at [place], and was becoming paranoid about his finances. It was found that $200 of his PNI money was unaccounted for and this escalated the patient. Pt began having outbursts of anger and became increasingly paranoid and delusional towards staff and peers. Assessment What has happened this shift: Received pt awake in his room. Pt pleasant with am care, including medications and am assessment. Pt out of his room for all meals; though, he left lunch and didn't eat because he said he was bothered by another pt who is hyperverbal and intrusive. Pt states, "its just not a very good day" Pt able to be reassured and appropriately removed himself from the situation. Pt denies s.i./h.i. and denies hallucinations. S/I, H/I: Denies A/VH: Denies Sleep: Per NOC 8.0 ADL's: Independent Group attendance: n/a Were meds taken: Yes Any med S/E: Denies Mental Status Exam Appearance: Casual in home clothes, wearing suit jacket and baseball cap Eye contact: Fair Behavior: Cooperative, calm, pacing halls and sitting in room in his chair listening to his headphones. Conversing with peers and staff. Speech: WNL Mood: Euthymic Affect: liable Thought process: Linear Thought Content: Circumstantial Cognition: A&Ox3 not to situation Insight: Poor Judgment: Poor Interventions PRN's used: Therapeutic interventions: 1:1 assessment, therapeutic conversation, active listening, medication administration/education/monitoring, behavior monitoring and intervention as needed; reality orientation, limit setting, distraction, redirection, provided encouragement and positive reinforcement, Q 15 minute safety checks. Restraints/seclusion/emergency medication: N/A Justification of Continued Inpatient Treatment: Patient requires a safe and therapeutic milieu while waiting placement. Patient is LPS conserved. This appears to be patents baseline.
[2021-03-06] MEDS: olanzapine 10mg tablet PO SCH ×2 (17:14→20:28)
[2021-03-06] MEDS: divalproex sodium 500mg tablet.DR PO SCH (20:24)
[2021-03-06] MEDS: quetiapine 100mg tablet PO SCH (20:24)
[2021-03-06 20:46] VITALS: BP 126/77
[2021-03-06] MEDS: temazepam 15mg capsule PO SCH (22:51)
--- NOTE | 2021-03-07 00:24 | NUR ---
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 Pt Public Guardian is Thuy Frost phone number #[phone]. Pt was at [place], and was becoming paranoid about his finances. It was found that $200 of his PNI money was unaccounted for and this escalated the patient. Pt began having outbursts of anger and became increasingly paranoid and delusional towards staff and peers. Assessment What has happened this shift: Received pt awake in [place]. Pt pleasant first part of shift. Pt changed his cloths and started to become agitated and yelling as he walked the [place]. Pt was able to calm down and was med compliant. Pt denies s.i./h.i. and denies hallucinations. S/I, H/I: Denies A/VH: Denies Sleep: See sleep hrs. ADL's: Independent Group attendance: n/a Were meds taken: Yes Any med S/E: Denies Mental Status Exam Appearance: Casual in home clothes, wearing suit jacket and baseball cap Eye contact: Fair Behavior: Cooperative, calm, pacing halls and sitting in room in his chair listening to his headphones. Conversing with peers and staff. Speech: WNL Mood: Euthymic Affect: liable Thought process: Linear Thought Content: Circumstantial Cognition: A&Ox3 not to situation Insight: Poor Judgment: Poor Interventions PRN's used: Therapeutic interventions: 1:1 assessment, therapeutic conversation, active listening, medication administration/education/monitoring, behavior monitoring and intervention as needed; reality orientation, limit setting, distraction, redirection, provided encouragement and positive reinforcement, Q 15 minute safety checks. Restraints/seclusion/emergency medication: N/A Justification of Continued Inpatient Treatment: Patient requires a safe and therapeutic milieu while waiting placement. Patient is LPS conserved. This appears to be patents baseline.
[2021-03-07 07:55] VITALS: BP 112/60
[2021-03-07] MEDS: trihexyphenidyl HCL 5 MG tablet PO SCH ×3 (08:17→20:25)
[2021-03-07] MEDS: carbamide peroxide 15ml bottle RIGHT EAR SCH ×2 (08:18→20:23)
[2021-03-07] MEDS: haloperidol 5mg tablet PO SCH ×4 (08:18→20:25)
[2021-03-07] MEDS: pantoprazole 40mg Tablet.DR PO SCH (08:18)
[2021-03-07] MEDS: divalproex 250mg tablet, delayed-release PO SCH (08:18)
[2021-03-07] MEDS: atorvastatin 10mg tablet PO SCH (08:18)
[2021-03-07] MEDS: NICOTINE POLACRILEX 2 MG LOZENGE BC PRN ×3 (08:31→19:36)
--- NOTE | 2021-03-07 14:05 | NUR ---
Today the group was about Growth Mindset versus Fixed Mindset. We discussed what the characteristics of both were and then had them think about and write down 1-3 areas they would like to work on to expand their growth mindset. The sheets they were provided with also had pictures that they could decorate and color to go along with the theme. Pt was dressed appropriate in jeans and a t-shirt with a jacket. His hygiene appeared WNL. He engaged with the information and was responsive and actively taking apart in the discussion. He would at times need to be re-directed as he would dominate the discussion if this Clinician did not step in to re-direct his focus. He did appear to understand the content and was able to give good feedback and shared with the group the areas he would like to grow his growth mindset. He reported he would like to to be more consistent in taking he medications and not worrying about other people's success. He reported it bothers him to when he sees others success. This Clinician affirmed him for his insight and we talked about how when you have a growth mindset you aren't worried about what other people think of you or others approval which makes you not feel inadequate when others succeed. He reported that this was interesting. Addendum: 03/07/21 at 1418 by Natasha TILLMAN Amended: Links added.
[2021-03-07] MEDS: olanzapine 10mg tablet PO SCH ×2 (18:07→20:24)
--- NOTE | 2021-03-07 18:08 | NUR ---
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 Pt Public Guardian is Thuy Frost phone number #[phone]. Pt was at [place], and was becoming paranoid about his finances. It was found that $200 of his PNI money was unaccounted for and this escalated the patient. Pt began having outbursts of anger and became increasingly paranoid and delusional towards staff and peers. Assessment What has happened this shift: Received pt awake in his room. Pt pleasant with am care, including medications and am assessment. Pt out of his room for all meals. Pt went to group and had no periods of negativity today. Pt denies s.i./h.i. and denies hallucinations. S/I, H/I: Denies A/VH: Denies Sleep: Per NOC 7.15 ADL's: Independent Group attendance: n/a Were meds taken: Yes Any med S/E: Denies Mental Status Exam Appearance: Casual in home clothes, wearing suit jacket and baseball cap Eye contact: Fair Behavior: Cooperative, calm, pacing halls and sitting in room in his chair listening to his headphones. Conversing with peers and staff. Speech: WNL Mood: Euthymic Affect: liable Thought process: Linear Thought Content: Circumstantial Cognition: A&Ox3 not to situation Insight: Poor Judgment: Poor Interventions PRN's used: Therapeutic interventions: 1:1 assessment, therapeutic conversation, active listening, medication administration/education/monitoring, behavior monitoring and intervention as needed; reality orientation, limit setting, distraction, redirection, provided encouragement and positive reinforcement, Q 15 minute safety checks. Restraints/seclusion/emergency medication: N/A Justification of Continued Inpatient Treatment: Patient requires a safe and therapeutic milieu while waiting placement. Patient is LPS conserved. This appears to be patents baseline.
[2021-03-07 19:29] VITALS: BP 130/84
[2021-03-07] MEDS: temazepam 15mg capsule PO SCH (20:24)
[2021-03-07] MEDS: divalproex sodium 500mg tablet.DR PO SCH (20:26)
[2021-03-08] MEDS: LORazepam 1 MG tablet PO PRN (00:24)
--- NOTE | 2021-03-08 00:34 | NUR ---
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 Pt Public Guardian is Thuy Frost phone number #[phone]. Pt was at [place], and was becoming paranoid about his finances. It was found that $200 of his PNI money was unaccounted for and this escalated the patient. Pt began having outbursts of anger and became increasingly paranoid and delusional towards staff and peers. Assessment What has happened this shift: Received pt awake and up on the unit. Pt pleasant with am care, including medications and am assessment. Pt out of his room for snack and meds and watching tv. Pt denies s.i./h.i. and denies hallucinations. S/I, H/I: Denies A/VH: Denies Sleep: Per NOC 7.15 ADL's: Independent Group attendance: n/a Were meds taken: Yes Any med S/E: Denies Mental Status Exam Appearance: Casual in home clothes, wearing suit jacket and baseball cap Eye contact: Fair Behavior: Cooperative, calm, pacing halls and sitting in room in his chair listening to his headphones. Conversing with peers and staff. Speech: WNL Mood: Euthymic Affect: liable Thought process: Linear Thought Content: Circumstantial Cognition: A&Ox3 not to situation Insight: Poor Judgment: Poor Interventions PRN's used: Ativan Therapeutic interventions: 1:1 assessment, therapeutic conversation, active listening, medication administration/education/monitoring, behavior monitoring and intervention as needed; reality orientation, limit setting, distraction, redirection, provided encouragement and positive reinforcement, Q 15 minute safety checks. Restraints/seclusion/emergency medication: N/A Justification of Continued Inpatient Treatment: Patient requires a safe and therapeutic milieu while waiting placement. Patient is LPS conserved. This appears to be patents baseline.
[2021-03-08 08:00] VITALS: BP 98/57
[2021-03-08] MEDS: divalproex 250mg tablet, delayed-release PO SCH (08:33)
[2021-03-08] MEDS: atorvastatin 10mg tablet PO SCH (08:33)
[2021-03-08] MEDS: trihexyphenidyl HCL 5 MG tablet PO SCH ×3 (08:33→20:25)
[2021-03-08] MEDS: pantoprazole 40mg Tablet.DR PO SCH (08:33)
[2021-03-08] MEDS: haloperidol 5mg tablet PO SCH ×4 (08:34→20:25)
[2021-03-08] MEDS: carbamide peroxide 15ml bottle RIGHT EAR SCH ×2 (08:34→20:28)
--- NOTE | 2021-03-08 08:45 | NUR ---
F/u 03/08: Pt continues with mostly 100% PO intake on regular diet meeting estimated nutrient needs. LBM 03/06. No nutrition intervention warranted at this time. Will continue to follow. Recommend: 1. Continue regular diet 2. Bowel care as needed 3. Weekly scaled weights Addendum: 03/08/21 at [address] Miguel [address] Amended: Links added.
--- NOTE | 2021-03-08 15:38 | NUR ---
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 Pts Public Guardian is Thuy Frost phone number #[phone]. Pt was at [place], and was becoming paranoid about his finances. It was found that $200 of his PNI money was unaccounted for and this escalated the patient. Pt began having outbursts of anger and became increasingly paranoid and delusional towards staff and peers. Assessment What has happened this shift: Received pt. sleeping in bed at the beginning of the shift, he was awoken by staff to attend breakfast in the Group Room. Pt. remained up afterwards and greeted this telegraphic typewriter installer animatedly. 1:1 completed later at bedside, pt. continues to present as pleasant and animated. He denies any MH s/s, however is observed by this telegraphic typewriter installer to be actively responding/ talking aloud to himself while in his room. Pt's thought process continues to be tangental with some delusional statements, however he is able to be redirected. Pt. attends group with others, and remains up throughout the shift interacting appropriately. S/I, H/I: Denies A/VH: Pt. denies, however is observed to be actively responding aloud while in his room Sleep: Sleep hours are 8.5 ADL's: Pt. requires some direction Group attendance: Yes Were meds taken: Yes Any med S/E: None Mental Status Exam Appearance: Neat and appropriately dressed Eye contact: Good, intense at times Behavior: Cooperative Speech:WNL, slowed Mood: Pleasant Affect: Animated Thought process: Tangental, but is able to be redirected Thought Content: Ongoing paranoid delusions, and possible A/GATES Cognition: A&O X3 Insight: Poor Judgment: Fair Interventions PRN's used: Nicotine Lozenge Therapeutic interventions: Maintained a safe and therapeutic environment, ensured contract for safety, provided clear and simple instructions, attempted to orient to reality, monitored behaviors and need for intervention, provided active listening, and maintained Q 15min safety checks. Restraints/seclusion/emergency medication: N/A Justification of Continued Inpatient Treatment: Per DIOGENES Baum, pt. requires a safe and supportive environment while awaiting placement.
[2021-03-08] MEDS: NICOTINE POLACRILEX 2 MG LOZENGE BC PRN (17:39)
[2021-03-08] MEDS: olanzapine 10mg tablet PO SCH ×2 (17:39→20:25)
[2021-03-08 19:28] VITALS: BP 121/73
[2021-03-08] MEDS: temazepam 15mg capsule PO SCH (20:25)
[2021-03-08] MEDS: divalproex sodium 500mg tablet.DR PO SCH (20:28)
--- NOTE | 2021-03-09 00:18 | NUR ---
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 Pts Public Guardian is Thuy Frost phone number #[phone]. Pt was at [place], and was becoming paranoid about his finances. It was found that $200 of his PNI money was unaccounted for and this escalated the patient. Pt began having outbursts of anger and became increasingly paranoid and delusional towards staff and peers. Assessment What has happened this shift: Received pt.up and on the unitat the beginning of the shift, he was social with peers and staff. 1:1 completed later at bedside, pt. continues to present as pleasant and animated. He denies any MH s/s. Pt continues to be actively responding/ talking aloud to himself while in his room. He is tangental with some delusional statements, He is easily redirected. Pt.ate snack in group room and was med compliant. S/I, H/I: Denies A/VH: Pt. denies, however is observed to be actively responding aloud while in his room Sleep: See sleep hrs. ADL's: Pt. requires some direction Group attendance: Yes Were meds taken: Yes Any med S/E: None Mental Status Exam Appearance: Neat and appropriately dressed Eye contact: Good, intense at times Behavior: Cooperative Speech:WNL, slowed Mood: Pleasant Affect: Animated Thought process: Tangental, but is able to be redirected Thought Content: Ongoing paranoid delusions, and possible A/GATES Cognition: A&O X3 Insight: Poor Judgment: Fair Interventions PRN's used: none Therapeutic interventions: Maintained a safe and therapeutic environment, ensured contract for safety, provided clear and simple instructions, attempted to orient to reality, monitored behaviors and need for intervention, provided active listening, and maintained Q 15min safety checks. Restraints/seclusion/emergency medication: N/A Justification of Continued Inpatient Treatment: Per DIOGENES Baum, pt. requires a safe and supportive environment while awaiting placement.
[2021-03-09] MEDS: NICOTINE POLACRILEX 2 MG LOZENGE BC PRN ×2 (07:32→13:30)
[2021-03-09] MEDS: divalproex 250mg tablet, delayed-release PO SCH (07:32)
[2021-03-09] MEDS: pantoprazole 40mg Tablet.DR PO SCH (07:32)
[2021-03-09] MEDS: haloperidol 5mg tablet PO SCH ×4 (07:32→20:34)
[2021-03-09] MEDS: trihexyphenidyl HCL 5 MG tablet PO SCH ×3 (07:32→20:32)
[2021-03-09] MEDS: atorvastatin 10mg tablet PO SCH (07:32)
[2021-03-09] MEDS: carbamide peroxide 15ml bottle RIGHT EAR SCH (07:33)
[2021-03-09 08:00] VITALS: BP 106/73
--- NOTE | 2021-03-09 14:44 | NUR ---
PLACEMENT UPDATE Packet at [facility] and [facility]. LEXIE Squires
[2021-03-09] MEDS: olanzapine 10mg tablet PO SCH ×2 (17:02→20:31)
--- NOTE | 2021-03-09 17:17 | NUR ---
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 Pt Public Guardian is Thuy Frost phone number #[phone]. Pt was at [place], and was becoming paranoid about his finances. It was found that $200 of his PNI money was unaccounted for and this escalated the patient. Pt began having outbursts of anger and became increasingly paranoid and delusional towards staff and peers. Assessment What has happened this shift: Pt was up before breakfast and pleasant and cooperative with medications. Pt states he had a good day today. Pt's Debrox drops to right ear were stopped with plan for noc shift to irrigate right ear tonight. Pt made some mildly delusional statements. When told about his ear needing to be irrigated, he indicated that there was certain staff he didn't wish to do it. Asked pt what nurse was good at it. Pt stated, "Lloyd, he's good but he's expensive." S/I, H/I: Pt denies A/VH: Pt denies Sleep: Pt slept 8.75 hours last night per noc shift report. ADL's: Independent Group attendance: No Were Meds taken: Yes Any med S/E: None noted or reported. Mental Status Exam Appearance: Older appearing gentleman with glasses, dressed in jeans, a sweatshirt, a baseball cap and black shoes. Eye contact: Good. Behavior: Pleasant, cooperative, watches heavy metal videos in the rec room. Speech: Clear, audible, loud at times. Mood: Good Affect: Blunted Thought process: Mildly delusional Thought Content: He had a good day, Lloyd RN is good at irrigating his ear but is expensive. Cognition: A/O X 3 Insight: Poor Judgment: Poor Interventions PRN's used: Nicotine lozenge Therapeutic interventions: 1:1 assessment, therapeutic conversation, active listening, medication administration/education/monitoring, behavior monitoring and intervention as needed; reality orientation, distraction, redirection, provided encouragement and positive reinforcement, Q 15 minute safety checks. Restraints/seclusion/emergency medication: N/A Justification of Continued Inpatient Treatment: Patient is LPS conserved. Patient requires a safe and therapeutic milieu while awaiting placement.
[2021-03-09] MEDS: temazepam 15mg capsule PO SCH (20:32)
[2021-03-09] MEDS: divalproex sodium 500mg tablet.DR PO SCH (20:34)
[2021-03-09 20:59] VITALS: BP 132/83
[2021-03-09] MEDS: LORazepam 1 MG tablet PO PRN (23:19)
--- NOTE | 2021-03-10 05:10 | NUR ---
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 Pt Public Guardian is Thuy Frost phone number #[phone]. Pt was at [place], and was becoming paranoid about his finances. It was found that $200 of his PNI money was unaccounted for and this escalated the patient. Pt began having outbursts of anger and became increasingly paranoid and delusional towards staff and peers. Assessment What has happened this shift: Patient is oriented and cooperative following shift change. He primarily rested. Late evening patient developed paranoia and described as being eternally doomed following this life. Patient became quite anxious, he was given a PRN Ativan with marked improvement. Patient was medication compliant. 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 Mental Status Exam Appearance: Disheveled, pale looking male. Eye contact: Good. Behavior: Pleasant, anxious, cooperative Speech: WNL Mood: Good Affect: Blunted Thought process: Somewhat delusional Thought Content: Internal damnation Cognition: A/O X 3 Insight: Poor Judgment: Poor Interventions PRN's used: Ativan Therapeutic interventions: 1:1 assessment, therapeutic conversation, active listening, medication administration/education/monitoring, behavior monitoring and intervention as needed; reality orientation, distraction, redirection, provided encouragement and positive reinforcement, Q 15 minute safety checks. Restraints/seclusion/emergency medication: N/A Justification of Continued Inpatient Treatment: Patient is LPS conserved. Patient requires a safe and therapeutic milieu while awaiting placement. Addendum: 03/10/21 at 0621 by Lloyd Ocampo RN This commercial loan underwriter did not irrigate patients ear. Patient was sedate and sleeping early shift, awake and becoming agitated after awakening. Patient was given Ativan and he returned to bed. This commercial loan underwriter will eval on tonight water resource manager and clear ear wax if noted on exam.
[2021-03-10 07:31] VITALS: BP 97/58
[2021-03-10] MEDS: atorvastatin 10mg tablet PO SCH (07:45)
[2021-03-10] MEDS: divalproex 250mg tablet, delayed-release PO SCH (07:45)
[2021-03-10] MEDS: haloperidol 5mg tablet PO SCH ×4 (07:45→20:45)
[2021-03-10] MEDS: trihexyphenidyl HCL 5 MG tablet PO SCH ×3 (07:45→20:43)
[2021-03-10] MEDS: pantoprazole 40mg Tablet.DR PO SCH (07:45)
[2021-03-10] MEDS: NICOTINE POLACRILEX 2 MG LOZENGE BC PRN ×3 (09:21→18:35)
[2021-03-10] MEDS: LORazepam 1 MG tablet PO PRN (10:24)
--- NOTE | 2021-03-10 15:09 | NUR ---
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 Pt Public Guardian is Thuy Frost phone number #[phone]. Pt was at [place], and was becoming paranoid about his finances. It was found that $200 of his PNI money was unaccounted for and this escalated the patient. Pt began having outbursts of anger and became increasingly paranoid and delusional towards staff and peers. Assessment What has happened this shift: Pt took his medication before breakfast. At around 0920, pt approached this RN to ask for a nicotine lozenge. Pt stated, "for some reason I needed to go cool it." Pt indicated that he had gone to his room for a voluntary time out. Positive reinforcement provided on his recognizing the need to do so and his coping skills. Around an hour later, pt again approached this RN to stated, "I'm feeling a little bit of anxiety, these new people, I don't know if I can trust them...can I have an Ativan?" Pt was administered PRN Ativan 1 mg at 1024. When went to give pt the Ativan, he stated, "I was cogwheeling really bad last night, yeah...it was in my neck." Clarified that pt had been talking about some neck stiffness. This RN walked pt through some neck stretches and neck rolls, pt had good ROM. Pt discussed how he know that Haldol can cause it, understands that he takes Artane to counteract side effects. Pt later stated that he knows he is hard to understand sometimes because he has a lisp. Reality orientation provided that this nurse has not heard him lisping. Pt has been pleasant, friendly and cooperative with care despite some mild paranoia and delusions. S/I, H/I: Pt denies A/VH: Pt denies Sleep: Pt slept 8.5 hours last night per noc shift report. ADL's: Independent Group attendance: Yes Were Meds taken: Yes Any med S/E: Pt reported some neck stiffness which he described as "cogwheeling." Mental Status Exam Appearance: Older appearing gentleman with glasses, dressed in jeans, a sweatshirt, a sports jacket, and black shoes. Eye contact: Good. Behavior: Pleasant, cooperative, friendly, socialized with staff. Speech: Clear, audible. Mood: Mostly good with some intermittent anxiety. Affect: Blunted Thought process: Mild paranoia and delusions Thought Content: He doesn't trust the new people on the unit, he has a lisp, his neck has been cogwheeling and pops sometimes. Cognition: A/O X 3 Insight: Poor Judgment: Fair Interventions PRN's used: Nicotine lozenges, Ativan 1 mg Therapeutic interventions: 1:1 assessment, therapeutic conversation, active listening, medication administration/education/monitoring, behavior monitoring and intervention as needed; reality orientation, distraction, redirection, provided encouragement and positive reinforcement, Q 15 minute safety checks. Restraints/seclusion/emergency medication: N/A Justification of Continued Inpatient Treatment: Patient is LPS conserved. Patient requires a safe and therapeutic milieu while awaiting placement.
[2021-03-10] MEDS: olanzapine 10mg tablet PO SCH ×2 (17:15→20:44)
[2021-03-10 20:00] VITALS: BP 123/73
[2021-03-10] MEDS: temazepam 15mg capsule PO SCH (20:43)
[2021-03-10] MEDS: divalproex sodium 500mg tablet.DR PO SCH (20:44)
--- NOTE | 2021-03-11 03:30 | NUR ---
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 Pt Public Guardian is Thuy Frost phone number #[phone]. Pt was at [place], and was becoming paranoid about his finances. It was found that $200 of his PNI money was unaccounted for and this escalated the patient. Pt began having outbursts of anger and became increasingly paranoid and delusional towards staff and peers. He is mildly delusional this shift. Patient complies with exam. Patient has orders for ear irrigation. Ears are inspected using an Assessment What has happened this shift: Patient is noted as being social with his peers following shift change. Patient ate his dinner, snacks, and is medication compliant. Both ears are examined using an otoscope. Patients right ear is visualized, minimal wax is present, the tympanic membrane is visualized. The left ear exam reveals a large amount of wax present. The tympanic membrane cannot be visualized. The left ear was flushed with warm water, 700 cc in total. Post flush the tympanic membrane is realized. Patient tells this personal lines underwriter that his hearing is much improved. He retires to sleep. 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 Mental Status Exam Appearance: Disheveled pale,looking male. Clean. Eye contact: Good. Behavior: Pleasant, cooperative, laughing on occasion. Speech: WNL Mood: Good Affect: Blunted Thought process: Mostly linear this shift. Some delusions. Thought Content: Rambles Cognition: A/O X 3 Insight: Poor Judgment: Poor Interventions PRN's used: Therapeutic interventions: 1:1 assessment, therapeutic conversation, active listening, medication administration/education/monitoring, behavior monitoring and intervention as needed; reality orientation, distraction, redirection, provided encouragement and positive reinforcement, Q 15 minute safety checks. Restraints/seclusion/emergency medication: N/A Justification of Continued Inpatient Treatment: Patient is LPS conserved. Patient requires a safe and therapeutic milieu while awaiting placement.
[2021-03-11] MEDS: atorvastatin 10mg tablet PO SCH (07:41)
[2021-03-11] MEDS: pantoprazole 40mg Tablet.DR PO SCH (07:41)
[2021-03-11] MEDS: divalproex 250mg tablet, delayed-release PO SCH (07:41)
[2021-03-11] MEDS: trihexyphenidyl HCL 5 MG tablet PO SCH ×3 (07:41→20:10)
[2021-03-11] MEDS: haloperidol 5mg tablet PO SCH ×4 (07:42→20:10)
[2021-03-11] MEDS: NICOTINE POLACRILEX 2 MG LOZENGE BC PRN ×4 (07:48→19:38)
[2021-03-11 08:00] VITALS: BP 95/51
--- NOTE | 2021-03-11 15:58 | NUR ---
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 Pt Public Guardian is Thuy Frost phone number #[phone]. Pt was at [place], and was becoming paranoid about his finances. It was found that $200 of his PNI money was unaccounted for and this escalated the patient. Pt began having outbursts of anger and became increasingly paranoid and delusional towards staff and peers. Assessment What has happened this shift: Pt slept until breakfast came this morning. Pt was pleasant and cooperative with medications. Pt became triggered by an intrusive female peer and stated loudly to said peer, "I don't like you...I really don't like you." Pt was directed away from the female peer. Had a conversation with pt on how it is okay to dislike someone but probably better not to say it to their face as it leads to altercations and arguments. Pt explained how the female peer had been rude to him in the dining room and said mean things to him. Pt is paranoid at times. Pt has paranoid delusions. 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 Pt stated, "He thinks I can't take care of myself, he thinks I'm a little uh...special (emphasis on special with great sarcasm) I'm a high performance achiever!" (Also said sarcastically.) Crook pt stating while walking down the phillips, "you all got your names changed and your job, all you've got to do is help people that go raped!" Attempted verbal de-escalation and reality orientation but this just further angered pt, so this RN walked away. Pt was not receptive to a PRN. A short while later pt approached this RN in the charting room to state, "There's still no door on my restroom...yeah, well, I'm paying for it!" He walked away then returned a few minutes later to say, "call the doctor for Oxycontin, I want to take some Oxycontin because that room has a problem and I can't take care of it without the proper utilities." This RN discussed the bathroom door situation with the auditor in charge who stated that engineering was notified and that they were going to order another door. Also discussed a possible room change but there are no viable options at this time. Crook pt use the phone to call and leave a message with his conservator about his lack of a bathroom door, "I have no door and they won't replace it...I know it's a Saturday and you're on vacation, hope you have a good day, anne marie kenney." Awhile later, pt again approached this RN to say, "a little girl name Myla hung herself in my room." He perseverated on this for awhile despite reality orientation attempts stating that is why he came here from where he was before to be in that room so Myla could run the place. Pt eventually was able to calm himself without a PRN. His mood improved greatly throughout the shift and after lunch was jovial and making jokes with staff. S/I, H/I: Pt denies A/VH: Pt denies Sleep: Pt slept 6.25 hours last night per noc shift report. ADL's: Independent Group attendance: No Were Meds taken: Yes Any med S/E: None noted or reported. Mental Status Exam Appearance: Older appearing gentleman with glasses, dressed in jeans and a T-shirt. Eye contact: Good. Behavior: Mostly cooperative, intermittent mild agitation due to delusions which pt worked through and eventually managed on his own. Speech: Clear, audible, loud at times. Mood: Some lability, ranged from irritable with mild agitation to happy and joking. Affect: More animated today. Thought process: Paranoid, delusional. Thought Content: He really wants a bathroom door, he can't trust anyone. Cognition: A/O X 3 Insight: Poor Judgment: Poor Interventions PRN's used: Nicotine lozenges Therapeutic interventions: 1:1 assessment, therapeutic conversation, active listening, medication administration/education/monitoring, behavior monitoring and intervention as needed; reality orientation, distraction, redirection, verbal de-escalation, provided encouragement and positive reinforcement, Q 15 minute safety checks. Restraints/seclusion/emergency medication: N/A Justification of Continued Inpatient Treatment: Patient is LPS conserved. Patient requires a safe and therapeutic milieu while awaiting placement.
[2021-03-11] MEDS: olanzapine 10mg tablet PO SCH ×2 (17:43→20:10)
[2021-03-11 20:00] VITALS: BP 124/82
[2021-03-11] MEDS: divalproex sodium 500mg tablet.DR PO SCH (20:10)
[2021-03-11] MEDS: temazepam 15mg capsule PO SCH (20:10)
[2021-03-11] MEDS: LORazepam 1 MG tablet PO PRN (21:46)
--- NOTE | 2021-03-12 04:02 | NUR ---
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 Pt Public Guardian is Thuy Frost phone number #[phone]. Pt was at [place], and was becoming paranoid about his finances. It was found that $200 of his PNI money was unaccounted for and this escalated the patient. Pt began having outbursts of anger and became increasingly paranoid and delusional towards staff and peers. Assessment What has happened this shift: Pt up walking the unit, watching TV in the community room. Pt stated he had a pretty good day Pt was pleasant and cooperative with medications. Pt talked about a spider outside his window and it had babies and its creeping him out. Pt had NOC snacks took all prescribed medications, requesting Ativan and was given with good effect. S/I, H/I: Pt denies A/VH: Pt denies Sleep: ADL's: Independent Group attendance: No Were Meds taken: Yes Any med S/E: None noted or reported. Mental Status Exam Appearance: Older appearing gentleman with glasses, dressed in jeans and a T-shirt. Eye contact: Good. Behavior: cooperative, pleasant Speech: Clear, audible, loud at times. Mood: Some irritability early in shift but then pleasant and cooperative Affect: Blunted Thought process: Paranoid, delusional. Thought Content: Doesnt like spiders outside his window. Cognition: A/O X 3 Insight: Poor Judgment: Poor Interventions PRN's used: Nicotine lozenges, ativan Therapeutic interventions: 1:1 assessment, therapeutic conversation, active listening, medication administration/education/monitoring, behavior monitoring and intervention as needed; reality orientation, distraction, redirection, verbal de-escalation, provided encouragement and positive reinforcement, Q 15 minute safety checks. Restraints/seclusion/emergency medication: N/A Justification of Continued Inpatient Treatment: Patient is LPS conserved. Patient requires a safe and therapeutic milieu while awaiting placement.
[2021-03-12] MEDS: NICOTINE POLACRILEX 2 MG LOZENGE BC PRN ×4 (07:42→19:20)
[2021-03-12 08:00] VITALS: BP 97/63
[2021-03-12] MEDS: haloperidol 5mg tablet PO SCH ×4 (08:02→20:55)
[2021-03-12] MEDS: divalproex 250mg tablet, delayed-release PO SCH (08:03)
[2021-03-12] MEDS: trihexyphenidyl HCL 5 MG tablet PO SCH ×3 (08:03→20:54)
[2021-03-12] MEDS: pantoprazole 40mg Tablet.DR PO SCH (08:03)
[2021-03-12] MEDS: atorvastatin 10mg tablet PO SCH (08:03)
--- NOTE | 2021-03-12 16:00 | NUR ---
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 Pt Public Guardian is Thuy Frost phone number #[phone]. Pt was at [place], and was becoming paranoid about his finances. It was found that $200 of his PNI money was unaccounted for and this escalated the patient. Pt began having outbursts of anger and became increasingly paranoid and delusional towards staff and peers. Assessment What has happened this shift: Received pt sleeping w/o distress at the beginning of the shift. Pt cooperative with vitals and asked for a Nicotine Doris. Early and throughout the day. Pt talked openly during AM assessments and took all meds w/o issue. Overall pleasant and cooperative today and interacted with staff and peers w/o angry outbursts. Pt ignored an interaction where another pt was provoking him. Enjoyed pizza brought by Dr Starks. S/I, H/I: Denies A/VH: Denies Sleep: Awake this shift ADL's: Independent Group attendance: n/a Were meds taken: Yes Any med S/E: Denies Mental Status Exam Appearance: Casual in own clothes Eye contact: Fair Behavior: Cooperative, calm, pacing halls, watching TV and conversing with peers and staff Speech: Coherent, delusional at times Mood: Euthymic Affect: Calm Thought process: Linear Thought Content: Circumstantial Cognition: A&Ox3 not to situation Insight: Poor Judgment: Poor Interventions PRN's used: Therapeutic interventions: 1:1 assessment, therapeutic conversation, active listening, medication administration/education/monitoring, behavior monitoring and intervention as needed; reality orientation, limit setting, distraction, redirection, provided encouragement and positive reinforcement, Q 15 minute safety checks. Restraints/seclusion/emergency medication: N/A Justification of Continued Inpatient Treatment: Patient requires a safe and therapeutic milieu while waiting placement. Patient is LPS conserved. This appears to be patents baseline.
[2021-03-12] MEDS: olanzapine 10mg tablet PO SCH ×2 (17:23→20:54)
[2021-03-12 19:52] VITALS: BP 99/67
[2021-03-12] MEDS: divalproex sodium 500mg tablet.DR PO SCH (20:54)
[2021-03-12] MEDS: temazepam 15mg capsule PO SCH (20:54)
[2021-03-13] MEDS: LORazepam 1 MG tablet PO PRN (02:58)
--- NOTE | 2021-03-13 04:41 | NUR ---
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 Pt Public Guardian is Thuy Frost phone number #[phone]. Pt was at [place], and was becoming paranoid about his finances. It was found that $200 of his PNI money was unaccounted for and this escalated the patient. Pt began having outbursts of anger and became increasingly paranoid and delusional towards staff and peers. He is mildly delusional this shift. Patient complies with exam. Patient has orders for ear irrigation. Ears are inspected using an Assessment What has happened this shift: Patient is quiet and social this shift. He remains delusional. Overall mood is good. Late shift patient develops some anxiety, he requested and was given PO Ativan. Patient relaxed and went to sleep. 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 Mental Status Exam Appearance: Disheveled pale,looking male. Clean. Eye contact: Good. Behavior: Pleasant, cooperative, laughing on occasion. Speech: WNL Mood: Good Affect: Blunted Thought process: Mostly linear this shift. Some delusions. Thought Content: Rambles Cognition: A/O X 3 Insight: Poor Judgment: Poor Interventions PRN's used: Ativan Therapeutic interventions: 1:1 assessment, therapeutic conversation, active listening, medication administration/education/monitoring, behavior monitoring and intervention as needed; reality orientation, distraction, redirection, provided encouragement and positive reinforcement, Q 15 minute safety checks. Restraints/seclusion/emergency medication: N/A Justification of Continued Inpatient Treatment: Patient is LPS conserved. Patient requires a safe and therapeutic milieu while awaiting placement.
[2021-03-13] MEDS: trihexyphenidyl HCL 5 MG tablet PO SCH ×3 (07:50→20:01)
[2021-03-13] MEDS: atorvastatin 10mg tablet PO SCH (07:50)
[2021-03-13] MEDS: divalproex 250mg tablet, delayed-release PO SCH (07:50)
[2021-03-13] MEDS: pantoprazole 40mg Tablet.DR PO SCH (07:50)
[2021-03-13] MEDS: haloperidol 5mg tablet PO SCH ×4 (07:51→20:03)
[2021-03-13 08:00] VITALS: BP 100/63
[2021-03-13] MEDS: NICOTINE POLACRILEX 2 MG LOZENGE BC PRN ×4 (10:15→19:44)
--- NOTE | 2021-03-13 17:35 | NUR ---
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 Pt Public Guardian is Thuy Frost phone number #[phone]. Pt was at [place], and was becoming paranoid about his finances. It was found that $200 of his PNI money was unaccounted for and this escalated the patient. Pt began having outbursts of anger and became increasingly paranoid and delusional towards staff and peers. Assessment What has happened this shift: Received pt sleeping in bed at shift change. Patient awakens for vitals and breakfast. Patient takes medications without incident. Patient has had positive interactions with staff and peers today. Patients only remark is that he is bored. Patient has a good sense of humor and laughs with staff at funny incidents. S/I, H/I: Denies A/VH: Denies Sleep: 8 hrs NOC, napped. ADL's: Independent Group attendance: n/a Were meds taken: Yes Any med S/E: Denies Mental Status Exam Appearance: Hair up in pony tail, wearing own attire. Eye contact: Fair Behavior: Paces hallways, watching t.v. in community room. Speech: Coherent, delusional at times Mood: Euthymic Affect: Calm Thought process: Linear Thought Content: Circumstantial Cognition: A&Ox3 not to situation Insight: Poor Judgment: Poor Interventions PRN's used: Nicotine lozenges. Therapeutic interventions: 1:1 assessment, therapeutic conversation, active listening, medication administration/education/monitoring, behavior monitoring and intervention as needed; reality orientation, limit setting, distraction, redirection, provided encouragement and positive reinforcement, Q 15 minute safety checks. Restraints/seclusion/emergency medication: N/A Justification of Continued Inpatient Treatment: Patient requires a safe and therapeutic milieu while waiting placement. Patient is LPS conserved. This appears to be patents baseline.
[2021-03-13] MEDS: olanzapine 10mg tablet PO SCH ×2 (18:01→20:03)
[2021-03-13 19:32] VITALS: BP 141/88
[2021-03-13] MEDS: divalproex sodium 500mg tablet.DR PO SCH (20:02)
[2021-03-13] MEDS: temazepam 15mg capsule PO SCH (20:04)
--- NOTE | 2021-03-14 00:25 | NUR ---
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 Pt Public Guardian is Thuy Frost phone number #[phone]. Pt was at [place], and was becoming paranoid about his finances. It was found that $200 of his PNI money was unaccounted for and this escalated the patient. Pt began having outbursts of anger and became increasingly paranoid and delusional towards staff and peers. Assessment What has happened this shift: Received pt up on unit watching tv in rec room at shift change. Pt was cooperative takes medications without incident. Patient has had positive interactions with staff and peers today. Patient had a good sense of humor and laughs and jokes with staff. S/I, H/I: Denies A/VH: Denies Sleep: 8 hrs NOC, napped. ADL's: Independent Group attendance: n/a Were meds taken: Yes Any med S/E: Denies Mental Status Exam Appearance: Hair up in pony tail, wearing own attire. Eye contact: Fair Behavior: Paces hallways, watching t.v. in community room. Speech: Coherent, delusional at times Mood: Euthymic Affect: Calm Thought process: Linear Thought Content: Circumstantial Cognition: A&Ox3 not to situation Insight: Poor Judgment: Poor Interventions PRN's used: Nicotine lozenges. Therapeutic interventions: 1:1 assessment, therapeutic conversation, active listening, medication administration/education/monitoring, behavior monitoring and intervention as needed; reality orientation, limit setting, distraction, redirection, provided encouragement and positive reinforcement, Q 15 minute safety checks. Restraints/seclusion/emergency medication: N/A Justification of Continued Inpatient Treatment: Patient requires a safe and therapeutic milieu while waiting placement. Patient is LPS conserved. This appears to be patents baseline.
[2021-03-14] MEDS: acetaminophen 325mg tablet PO PRN (01:56)
[2021-03-14 07:22] VITALS: BP 104/69
[2021-03-14] MEDS: atorvastatin 10mg tablet PO SCH (07:44)
[2021-03-14] MEDS: divalproex 250mg tablet, delayed-release PO SCH (07:44)
[2021-03-14] MEDS: trihexyphenidyl HCL 5 MG tablet PO SCH ×3 (07:44→20:06)
[2021-03-14] MEDS: pantoprazole 40mg Tablet.DR PO SCH (07:44)
[2021-03-14] MEDS: haloperidol 5mg tablet PO SCH ×4 (07:45→20:07)
[2021-03-14] MEDS: NICOTINE POLACRILEX 2 MG LOZENGE BC PRN ×4 (08:36→17:32)
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
[2021-03-14] MEDS: LORazepam 1 MG tablet PO PRN (10:40)
--- NOTE | 2021-03-14 14:13 | NUR ---
Pt attended today's group. The group was about Core Beliefs and how depending on what lenses we have on (positive core belief vs. negative core beliefs) we interpret our experiences through these lenses. Patients were asked to share one or two of their negative core beliefs so that we could process these beliefs together as a group to help them see what the opposite could be. These positive core beliefs were the reinforced by them having to write them on a piece of paper and apply the paper/lens to sunglasses that were given to each pt. so they could leave with a new positive belief/lens. Pt. sat at the back of class and at first was hesitant about engaging. He was alert and oriented X 4. His thought process and thought content was hard to follow at times but he mostly stayed on task and on topic. Once the group started he got involved and decided to work on his core beliefs. He shared with the group that his negative core belief was "I am belligerent and I am worthless". He talked about what his new core belief could be and he came up with "I am capable and I am strong". He also gave feedback to a peer who received his feedback well as it was very on-point for her in her process of trying to change her belief system. PRIMO - Natasha Moe LCSW
[2021-03-14] MEDS: olanzapine 10mg tablet PO SCH ×2 (17:47→20:09)
[2021-03-14 19:46] VITALS: BP 130/76
[2021-03-14] MEDS: divalproex sodium 500mg tablet.DR PO SCH (20:07)
[2021-03-14] MEDS: temazepam 15mg capsule PO SCH (20:08)
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
[2021-03-15] MEDS: LORazepam 1 MG tablet PO PRN (02:14)
[2021-03-15] MEDS: divalproex 250mg tablet, delayed-release PO SCH (07:33)
[2021-03-15] MEDS: atorvastatin 10mg tablet PO SCH (07:33)
[2021-03-15] MEDS: pantoprazole 40mg Tablet.DR PO SCH (07:33)
[2021-03-15] MEDS: trihexyphenidyl HCL 5 MG tablet PO SCH ×3 (07:33→20:05)
[2021-03-15] MEDS: haloperidol 5mg tablet PO SCH ×4 (07:34→20:04)
[2021-03-15] MEDS: NICOTINE POLACRILEX 2 MG LOZENGE BC PRN ×4 (07:34→20:04)
[2021-03-15 07:39] VITALS: BP 89/50
[2021-03-15 09:00] VITALS: BP 119/75
--- NOTE | 2021-03-15 09:18 | NUR ---
F/u 03/15: Pt continues with mostly 100% PO intake on regular diet meeting estimated nutrient needs. LBM 03/14. No nutrition concerns at this time. Will continue to follow. Recommend: 1. Continue regular diet 2. Bowel care as needed 3. Weekly scaled weights Addendum: 03/15/21 at [address] Amended: Links added.
--- NOTE | 2021-03-15 15:30 | NUR ---
Pt took part in group today. In todays group we talked about the different kinds of Unhealthy Thinking. After we went through the different types the group was asked to discuss one of the unhealthy ways of thinking that resonated with them. We then did an exercise around Decatastrophizing were they had to questions their own thoughts by writing down what they were worried about, give evidence why it is true, and if it did come true what would be the worst thing that could happen. Pt. appeared to be alert and oriented X 4. He engaged in the group and shared at times appropriately and at times injecting information that was not pertinent to what we were discussing but was easily redirected. He stated after we reviewed the unhealthy ways of thinking, " I need to get should, must and ought out of my vocabulary". He went on to share that he would like to say, "I think I will have a good day today" instead. This Copper Rol[employer] Handler [employer]ing affirmed this new way of speaking about his day. He remained calm pleasant throughout the group. PRIMO - Natasha Moe LCSW
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
[2021-03-15] MEDS: olanzapine 10mg tablet PO SCH ×2 (17:16→20:04)
[2021-03-15 19:46] VITALS: BP 129/77
[2021-03-15] MEDS: divalproex sodium 500mg tablet.DR PO SCH (20:05)
[2021-03-15] MEDS: temazepam 15mg capsule PO SCH (20:05)
[2021-03-15] MEDS: acetaminophen 325mg tablet PO PRN (20:07)
--- NOTE | 2021-03-16 01:26 | NUR ---
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 Pt Public Guardian is Thuy Frost phone number #[phone]. Pt was at [place], and was becoming paranoid about his finances. It was found that $200 of his PNI money was unaccounted for and this escalated the patient. Pt began having outbursts of anger and became increasingly paranoid and delusional towards staff and peers. Assessment What has happened this shift: PT walks the halls this evening, listening to headphones and coming up to staff saying hello and asking how their day was. He smiles and is friendly with peers. 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 He then is heard talking to himself in his room for about 1 hour before bed. It sounds as if he is having a disagreement with himself but quiets down and falls asleep. PT remains delusional, but is medication compliant and denies SI/HI. S/I, H/I: Pt denies A/VH: Pt denies but responds to internal stimuli Sleep: see sleep assessment ADL's: Independent Group attendance: Yes Were meds taken: Yes Any med S/E: none noted Mental Status Exam Appearance: glasses and hair pulled back in a low ponytail dressed in jeans and a sport's coat. Eye contact: Good Behavior: calm, self Speech: Clear, audible, loud. Mood: Mostly good, brief periods of irritability. Affect: Animated today. Thought process: Delusional Thought Content: sadists Cognition: A/O X 3 Insight: Poor Judgment: Poor Interventions PRN's used: Nicotine lozenges. Therapeutic interventions: 1:1 assessment, therapeutic conversation, active listening, medication administration/education/monitoring, behavior monitoring and intervention as needed; reality orientation, limit setting, distraction, redirection, provided encouragement and positive reinforcement, Q 15 minute safety checks. Restraints/seclusion/emergency medication: N/A Justification of Continued Inpatient Treatment: Patient requires a safe and therapeutic milieu while waiting placement. Patient is LPS conserved. This appears to be patents baseline.
[2021-03-16] MEDS: divalproex 250mg tablet, delayed-release PO SCH (07:29)
[2021-03-16] MEDS: atorvastatin 10mg tablet PO SCH (07:29)
[2021-03-16] MEDS: trihexyphenidyl HCL 5 MG tablet PO SCH ×3 (07:29→20:18)
[2021-03-16] MEDS: pantoprazole 40mg Tablet.DR PO SCH (07:29)
[2021-03-16] MEDS: haloperidol 5mg tablet PO SCH ×4 (07:29→20:18)
[2021-03-16] MEDS: NICOTINE POLACRILEX 2 MG LOZENGE BC PRN ×4 (07:44→19:07)
[2021-03-16 08:00] VITALS: BP 125/75
[2021-03-16] MEDS: LORazepam 1 MG tablet PO PRN (11:42)
[2021-03-16] MEDS ORDERED: tuberculin, purif. prot. deriv. 5 units/0.1ml ID ONE (13:30)
--- NOTE | 2021-03-16 14:59 | NUR ---
PLACEMENT UPDATE Sent updated notes to [facility]. Laina from [facility] called to set up an interview via Zoom with Hardik. Plan: Zoom interview scheduled for 1:30 PM tomorrow. LEXIE Squires
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
[2021-03-16] MEDS: olanzapine 10mg tablet PO SCH ×2 (17:29→20:20)
[2021-03-16 19:39] VITALS: BP 126/81
[2021-03-16] MEDS: divalproex sodium 500mg tablet.DR PO SCH (20:19)
[2021-03-16] MEDS: temazepam 15mg capsule PO SCH (20:20)
--- NOTE | 2021-03-17 00:24 | NUR ---
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 Pt Public Guardian is Thuy Frost phone number #[phone]. Pt was at [place], and was becoming paranoid about his finances. It was found that $200 of his PNI money was unaccounted for and this escalated the patient. Pt began having outbursts of anger and became increasingly paranoid and delusional towards staff and peers. Assessment What has happened this shift: Pt walks the halls listening to headphones. He tells staff to call him "Brain." Pt states, "Yea I have an interview tomorrow, it's hard work but I think I will do well." Beach Attendant encourages pt and expresses happiness for him. He smiles and gives copywriter high five. After HS medications he can be heard talking loudly to himself about suitcases in an argumentative tone, but falls asleep soon after. S/I, H/I: Pt denies A/VH: Pt denies but responds to internal stimuli Sleep: see sleep assessment ADL's: Independent Group attendance: Yes Were meds taken: Yes Any med S/E: none noted Mental Status Exam Appearance: glasses and hair pulled back in a low ponytail dressed in jeans and a sport's coat. Eye contact: Good Behavior: calm, self Speech: Clear, audible, loud. Mood: Mostly good, brief periods of irritability. Affect: Animated today. Thought process: Delusional Thought Content: interview Cognition: A/O X 3 Insight: Poor Judgment: Poor Interventions PRN's used: Nicotine lozenges. Therapeutic interventions: 1:1 assessment, therapeutic conversation, active listening, medication administration/education/monitoring, behavior monitoring and intervention as needed; reality orientation, limit setting, distraction, redirection, provided encouragement and positive reinforcement, Q 15 minute safety checks. Restraints/seclusion/emergency medication: N/A Justification of Continued Inpatient Treatment: Patient requires a safe and therapeutic milieu while waiting placement. Patient is LPS conserved. This appears to be patents baseline.
[2021-03-17] MEDS: trihexyphenidyl HCL 5 MG tablet PO SCH ×3 (07:50→20:09)
[2021-03-17] MEDS: atorvastatin 10mg tablet PO SCH (07:50)
[2021-03-17] MEDS: divalproex 250mg tablet, delayed-release PO SCH (07:50)
[2021-03-17] MEDS: pantoprazole 40mg Tablet.DR PO SCH (07:50)
[2021-03-17] MEDS: NICOTINE POLACRILEX 2 MG LOZENGE BC PRN ×4 (07:51→19:55)
[2021-03-17] MEDS: haloperidol 5mg tablet PO SCH ×4 (07:51→20:08)
[2021-03-17 08:03] VITALS: BP 106/67
[2021-03-17] MEDS: LORazepam 1 MG tablet PO PRN ×2 (09:30→19:55)
--- NOTE | 2021-03-17 15:32 | NUR ---
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 Pt Public Guardian is Thuy Frost phone number #[phone]. Pt was at [place], and was becoming paranoid about his finances. It was found that $200 of his PNI money was unaccounted for and this escalated the patient. Pt began having outbursts of anger and became increasingly paranoid and delusional towards staff and peers. Assessment What has happened this shift: Pt was up before breakfast. Pt was pleasant and cooperative with care and meds. Pt expressed some anxiety due to pending Zoom interview today. Pt requested PRN Ativan and was given Ativan 1 mg PO at 0930. Pt had his Zoom interview with Mary Nelson and was accepted. Plan is for pt to discharge next week. S/I, H/I: Pt denies A/VH: Pt denies Sleep: Pt slept 8.75 hours last night per noc shift report. ADL's: Independent Group attendance: No groups today. Were meds taken: Yes Any med S/E: None noted or reported. Mental Status Exam Appearance: Older appearing man with longish greying brown hair dressed in jeans, a sports coat, and dark blue cloth face mask. Eye contact: Good Behavior: Calm, pleasant ,cooperative Speech: Clear, audible, loud. Mood: Anxious Affect: Congruent. Thought process: Bizarre and sometimes paranoid delusions. Thought Content: He is concerned because he is being discharged to the same facility as another male peer here and they have had frequent verbal altercations. Cognition: A/O X 3 Insight: Poor Judgment: Poor Interventions PRN's used: Nicotine lozenges, Ativan 1 mg. Therapeutic interventions: 1:1 assessment, therapeutic conversation, active listening, medication administration/education/monitoring, behavior monitoring and intervention as needed; reality orientation, distraction, redirection, provided encouragement and positive reinforcement, Q 15 minute safety checks. Restraints/seclusion/emergency medication: N/A Justification of Continued Inpatient Treatment: Patient requires a safe and therapeutic milieu while waiting placement. Patient is LPS conserved. This appears to be patents baseline. Pt is being [facility] next week to [facility].
[2021-03-17] MEDS: olanzapine 10mg tablet PO SCH ×2 (17:56→20:09)
[2021-03-17 19:00] VITALS: BP 133/83
--- NOTE | 2021-03-17 19:56 | NUR ---
Patient exhibits labile behavior, "I'm being set up to be murdered." Patient given Ativan 1mg PO, he also accepted a Nicotine lozenge.
[2021-03-17] MEDS: temazepam 15mg capsule PO SCH (20:07)
[2021-03-17] MEDS: divalproex sodium 500mg tablet.DR PO SCH (20:09)
[2021-03-17] MEDS: acetaminophen 325mg tablet PO PRN (21:34)
[2021-03-18] MEDS: acetaminophen 325mg tablet PO PRN ×2 (00:37→20:54)
--- NOTE | 2021-03-18 04:14 | NUR ---
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 Pt Public Guardian is Thuy Frost phone number #[phone]. Pt was at [place], and was becoming paranoid about his finances. It was found that $200 of his PNI money was unaccounted for and this escalated the patient. Pt began having outbursts of anger and became increasingly paranoid and delusional towards staff and peers. Assessment What has happened this shift: Pt was up before breakfast. Pt was pleasant and cooperative with care and meds. Pt expressed some anxiety due to pending Zoom interview today. Pt requested PRN Ativan and was given Ativan 1 mg PO at 0930. Pt had his Zoom interview with [facility] and was accepted. Plan is for pt to discharge next week. S/I, H/I: Pt denies A/VH: Pt denies Sleep: Will tally at 0500 ADL's: Independent Group attendance: No groups today. Were meds taken: Yes, medication compliant Any med S/E: None noted or reported. Mental Status Exam Appearance: WNL, slightly disheveled look Eye contact: Good Behavior: Friendly, cooperative, labile at times. Speech: Clear, audible, loud, yelling on occasion. Mood: Anxious, labile Affect: Congruent. Thought process: Delusional at times, "they are setting me up to kill me." Thought Content: Concerned about his pending discharge. Cognition: A/O X 3 Insight: Poor Judgment: Poor Interventions PRN's used: Ativan, Nicotine Therapeutic interventions: 1:1 assessment, therapeutic conversation, active listening, medication administration/education/monitoring, behavior monitoring and intervention as needed; reality orientation, distraction, redirection, provided encouragement and positive reinforcement, Q 15 minute safety checks. Restraints/seclusion/emergency medication: N/A Justification of Continued Inpatient Treatment: Patient requires a safe and therapeutic milieu while waiting placement. Patient is LPS conserved. This appears to be patents baseline. Pt is being discharged next week to [facility].
[2021-03-18] MEDS: atorvastatin 10mg tablet PO SCH (07:44)
[2021-03-18] MEDS: pantoprazole 40mg Tablet.DR PO SCH (07:44)
[2021-03-18] MEDS: divalproex 250mg tablet, delayed-release PO SCH (07:45)
[2021-03-18] MEDS: haloperidol 5mg tablet PO SCH ×4 (07:45→20:49)
[2021-03-18] MEDS: trihexyphenidyl HCL 5 MG tablet PO SCH ×3 (07:45→20:48)
[2021-03-18] MEDS: NICOTINE POLACRILEX 2 MG LOZENGE BC PRN ×5 (07:46→20:53)
[2021-03-18 08:00] VITALS: BP 93/65
[2021-03-18] MEDS: LORazepam 1 MG tablet PO PRN (14:13)
--- NOTE | 2021-03-18 17:22 | NUR ---
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 Pt Public Guardian is Thuy Frost phone number #[phone]. Pt was at [place], and was becoming paranoid about his finances. It was found that $200 of his PNI money was unaccounted for and this escalated the patient. Pt began having outbursts of anger and became increasingly paranoid and delusional towards staff and peers. Assessment What has happened this shift: Pt was up before breakfast. Pt was pleasant. He requested several nicotine lozenges and Ativan once. He expressed some anxiety r/t d/c Saturday stating he is kind of excited but what if they dont let me go outside, or go smoke. But you also dont want people coming in who shouldnt be there. He then states Kyra been here a long time huh?. He also made a delusional statement about drinking 25 gallons of alcohol. S/I, H/I: Pt denies A/VH: Pt denies Sleep: A few naps during the day ADL's: Independent Group attendance: No groups Were meds taken: Yes Any med S/E: None noted Mental Status Exam Appearance: Wearing his own clothes, hair pulled back in a pony tail at times Eye contact: Direct Behavior: Calm, cooperative Speech: WNL Mood: Underlying Anxiety Affect: Flat Thought process: Linear, discharge. Thought Content: Discharge. Delusions. Cognition: Alert, oriented Insight: Poor Judgment: Poor Interventions PRN's used: Ativan, Nicotine lozenges Therapeutic interventions: 1:1 assessment, therapeutic conversation, active listening, medication administration/education/monitoring, behavior monitoring and intervention as needed; reality orientation, distraction, redirection, provided encouragement and positive reinforcement, Q 15 minute safety checks. Restraints/seclusion/emergency medication: N/A Justification of Continued Inpatient Treatment: Patient requires a safe and therapeutic milieu while waiting placement. Patient is LPS conserved. This appears to be patents baseline. Pt is being discharged next week to [facility].
[2021-03-18] MEDS: olanzapine 10mg tablet PO SCH ×2 (17:42→20:48)
[2021-03-18 19:00] VITALS: BP 92/45
[2021-03-18] MEDS: temazepam 15mg capsule PO SCH (20:48)
[2021-03-18] MEDS: divalproex sodium 500mg tablet.DR PO SCH (20:49)
[2021-03-18 21:04] VITALS: BP 138/84
[2021-03-18 21:05] VITALS: BP 118/104
[2021-03-18 21:06] VITALS: BP 112/88
--- NOTE | 2021-03-19 01:50 | NUR ---
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 Pt Public Guardian is Thuy Meyersnaugh phone number #[phone]. Pt was at [place], and was becoming paranoid about his finances. It was found that $200 of his PNI money was unaccounted for and this escalated the patient. Pt began having outbursts of anger and became increasingly paranoid and delusional towards staff and peers. Assessment What has happened this shift: The patient spent a lot of time resting on his bed this evening but did come out for brief periods and watched tv. He was pleasant and calm throughout the evening. He stated that he was not having any thoughts to harm himself or others. He stated that he was still having a "little bit of voices" He stated that he has been bothered by restless legs that wake him up at night. His affect was restricted. His insight and judgement are impaired. He stated that he was unaware of any potential discharge plans but stated that he would like to be a lower level of care. He did not have any outbursts. Justification of Continued Inpatient Treatment: The patient is pending placement as arranged by the public guardian's office.
[2021-03-19 08:21] VITALS: BP 108/63
[2021-03-19] MEDS: divalproex 250mg tablet, delayed-release PO SCH (08:48)
[2021-03-19] MEDS: trihexyphenidyl HCL 5 MG tablet PO SCH ×3 (08:48→20:15)
[2021-03-19] MEDS: atorvastatin 10mg tablet PO SCH (08:49)
[2021-03-19] MEDS: haloperidol 5mg tablet PO SCH ×4 (08:49→20:16)
[2021-03-19] MEDS: pantoprazole 40mg Tablet.DR PO SCH (08:49)
[2021-03-19] MEDS: LORazepam 1 MG tablet PO PRN (12:39)
[2021-03-19] MEDS: NICOTINE POLACRILEX 2 MG LOZENGE BC PRN ×3 (15:51→19:38)
[2021-03-19] MEDS: olanzapine 10mg tablet PO SCH ×2 (17:24→20:16)
--- NOTE | 2021-03-19 17:58 | NUR ---
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 Pt Public Guardian is Thuy Frost phone number #[phone]. Pt was at [place], and was becoming paranoid about his finances. It was found that $200 of his PNI money was unaccounted for and this escalated the patient. Pt began having outbursts of anger and became increasingly paranoid and delusional towards staff and peers. Assessment What has happened this shift: 1:1 done at bedside, denies SI/HI, states he slept good and is looking forward to his upcoming discharge as long as they give him his allowance. PRN Ativan administered at 1239pm per pt. request stating he was hearing voices telling them to repeat after me. PRN somewhat effective, pt. stated the voices had stopped but pt. appeared slightly irritable still. At approx. 1730 pt. appeared noticeably agitated due to not being able to keep his Ipad on him because the headphones must be used with a cord. 1800 medications administered and pt. then went and took a nap and has seemed to calm down. S/I, H/I: Pt denies A/VH: Denies visual hallucinations, states he hears voices. Sleep: Awake till late afternoon and then napped. ADL's: Independent Group attendance: No. Were meds taken: Yes Any med S/E: None noted Mental Status Exam Appearance: Wearing his own clothes, hair pulled back in a pony tail. Eye contact: Good Behavior: agitated, but cooperative Speech: Normal rate and rhythm Mood: irritable, anxious. Affect: Flat Thought process: Linear, discharge. Thought Content: Discharge. Delusions. Cognition: Alert, oriented Insight: Poor Judgment: Poor Interventions PRN's used: Ativan, Nicotine lozenges Therapeutic interventions: 1:1 assessment, therapeutic conversation, active listening, medication administration/education/monitoring, behavior monitoring and intervention as needed; reality orientation, distraction, redirection, provided encouragement and positive reinforcement, Q 15 minute safety checks. Restraints/seclusion/emergency medication: N/A Justification of Continued Inpatient Treatment: Patient requires a safe and therapeutic milieu while waiting placement. Patient is LPS conserved. This appears to be patents baseline. Pt is being discharged next week to [facility].
[2021-03-19 19:23] VITALS: BP 99/56
[2021-03-19] MEDS: temazepam 15mg capsule PO SCH (20:15)
[2021-03-19] MEDS: divalproex sodium 500mg tablet.DR PO SCH (20:16)
[2021-03-19] MEDS: acetaminophen 325mg tablet PO PRN (20:16)
--- NOTE | 2021-03-20 00:54 | NUR ---
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 Pt Public Guardian is Thuy Frost phone number #[phone]. Pt was at [place], and was becoming paranoid about his finances. It was found that $200 of his PNI money was unaccounted for and this escalated the patient. Pt began having outbursts of anger and became increasingly paranoid and delusional towards staff and peers. Assessment What has happened this shift: The patient has been fairly isolative to his room. He was laying on the top of his bed and his room was cold and when asked about it he insisted that he needed it cold so he could get enough oxygen. He stated that last night he did not have any problems with restless legs and attributed in part in taking tylenol at . He stated that he slept well last night. He was superficially pleasant but at one point was briefly speaking loudly in his room. He stated that he is hearing voices at times. He is not having thoughts to harm himself or others. He is attending to his ADLs. He is medication compliant. He does seem to have some extra saliva when he is speaking. He has not had any threatening or disruptive behaviors on the unit. His insight and judgement are poor. Is alert and oriented. He appears adequately groomed. Some lability in his mood. Justification of Continued Inpatient Treatment: The patient is on LPS conservatorship and is waiting for placement as arranged by the Public Guardian's office.
[2021-03-20] MEDS: acetaminophen 325mg tablet PO PRN (02:21)
[2021-03-20] MEDS: LORazepam 1 MG tablet PO PRN ×2 (02:21→11:50)
[2021-03-20 07:39] VITALS: BP 119/79
[2021-03-20] MEDS: haloperidol 5mg tablet PO SCH ×4 (08:05→20:21)
[2021-03-20] MEDS: atorvastatin 10mg tablet PO SCH (08:06)
[2021-03-20] MEDS: divalproex 250mg tablet, delayed-release PO SCH (08:06)
[2021-03-20] MEDS: trihexyphenidyl HCL 5 MG tablet PO SCH ×3 (08:06→20:20)
[2021-03-20] MEDS: pantoprazole 40mg Tablet.DR PO SCH (08:06)
--- NOTE | 2021-03-20 09:18 | NUR ---
Completed and faxed LPS status report to [facility] Public Guardian along with a med list at their request. LEXIE Squires
[2021-03-20] MEDS: NICOTINE POLACRILEX 2 MG LOZENGE BC PRN ×3 (10:45→18:15)
[2021-03-20] MEDS ORDERED: TEMA15CA5 PO (14:55)
[2021-03-20] MEDS ORDERED: ATI1T PO (14:55)
--- NOTE | 2021-03-20 16:05 | NUR ---
PLACEMENT UPDATE Hardik was accepted at [facility]. Hardik told his conservator, Shay, that he is refusing to go there due to the fact that it is a non-smoking facility. Spoke to Amanda Julien, [place] Public Guardian (# [phone] ), regarding news writer's concern that Hardik will have difficulty getting accepted elsewhere. She shared news writer's concern. Informed her that Hardik is not able to smoke here at [facility]. She was also concerned that if Hardik is forced to go to [facility] he would act out immediately and have to return to a PHF and that it would ruin their relationship with the facility. End Matcher talked to Hardik about placement and he stated, "I'm homeless, no one wants me". Informed him that [facility] would like him and he stated he refuses to go there due to the no smoking policy. TAD office is currently contacting [facility] who also has Hardik's packet to see if they are non-smoking as well. LEXIE Squires
--- NOTE | 2021-03-20 17:11 | NUR ---
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 Pt Public Guardian is Thuy Frost phone number #[phone]. Pt was at [place], and was becoming paranoid about his finances. It was found that $200 of his PNI money was unaccounted for and this escalated the patient. Pt began having outbursts of anger and became increasingly paranoid and delusional towards staff and peers. Assessment What has happened this shift: RN received pt. asleep in bed at start of shift. Pt. awoke late for breakfast and took all medications. Pt. ate all meals in the community room. During 1:1 interview pt. limited information, states, Im fine and denies SI/HI, A/V hallucinations. Pt. became paranoid mid-morning, approaching this RN and stating, You know whats going on here Its unfair for you and thats just too bad. Pt. pacing the hallway and talking loudly to himself. Pt. given Ativan 1mg po with good effect. Pt. allowed to listen to his MP3 player in doctors office. Pt. observed watching TV in community room with peers. S/I, H/I: Pt denies A/VH: Denies, however pt. appears to be responding to internal stimuli. Sleep: Awake till late afternoon and then napped. ADL's: Independent Group attendance: NA Were meds taken: Yes Any med S/E: Denies Mental Status Exam Appearance: Neat and clean wearing jeans and juany shirt, hair pulled back in a pony tail. Eye contact: WNL Behavior: Easily agitated but cooperative, watching TV in community with peers. More socially withdrawn today. Speech: WNL Mood: Irritable Affect: Flat Thought process: Paranoid, personalization, persecutory delusions Thought Content: Delusions. Wanting to listen to his MP3 player Cognition: Alert & oriented x4. Insight: Poor Judgment: Poor Interventions PRN's used: Ativan x1, Nicotine lozenges Therapeutic interventions: 1:1 assessment, therapeutic conversation, active listening, medication administration/education/monitoring, behavior monitoring and intervention as needed; reality orientation, distraction, redirection, provided encouragement and positive reinforcement, Q 15 minute safety checks. Restraints/seclusion/emergency medication: N/A Justification of Continued Inpatient Treatment: Patient requires a safe and therapeutic milieu while waiting placement. Patient is LPS conserved. This appears to be patents baseline. Pt is being discharged next week to [facility].
[2021-03-20] MEDS: olanzapine 10mg tablet PO SCH ×2 (17:51→20:21)
[2021-03-20] MEDS: divalproex sodium 500mg tablet.DR PO SCH (20:21)
[2021-03-20] MEDS: temazepam 15mg capsule PO SCH (20:21)
--- NOTE | 2021-03-21 00:28 | NUR ---
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 Pt Public Guardian is Thuy Frost phone number #[phone]. Pt was at [place], and was becoming paranoid about his finances. It was found that $200 of his PNI money was unaccounted for and this escalated the patient. Pt began having outbursts of anger and became increasingly paranoid and delusional towards staff and peers. Assessment What has happened this shift: At start of shift Pt asked staff to get MP3 player out of safe for him. Pt did not directly express anger at staff's refusal to provide MP3 player but he went in the Rec room and start yelling loudly enough to be heard throughout unit. Yelling at no one "are you " and " Is it mine" Pt refused any offer of assistance. Went into room yelling "I don't want anyone touching me ever again" Refused Vital signs. Later in shift pt calmed down was more cooperative with care took all meds and went to sleep. S/I, H/I: Pt denies A/VH: Denies, however pt. appears to be responding to internal stimuli. Sleep: Asleep at this time ADL's: Independent Group attendance: NA Were meds taken: Yes Any med S/E: Denies Mental Status Exam Appearance: Neat and clean wearing jeans and collared shirt, hair pulled back in a pony tail. Eye contact: WNL Behavior: Did not directly express anger about not being allowed MP3 player Speech: WNL Mood: Irritable Affect: Angry at times Thought process: Paranoid, personalization, persecutory delusions Thought Content: Delusions. Wanting to listen to his MP3 player Cognition: Alert & oriented x4. Insight: Poor Judgment: Poor Interventions PRN's used: Therapeutic interventions: 1:1 assessment, therapeutic conversation, active listening, medication administration/education/monitoring, behavior monitoring and intervention as needed; reality orientation, distraction, redirection, provided encouragement and positive reinforcement, Q 15 minute safety checks. Restraints/seclusion/emergency medication: N/A Justification of Continued Inpatient Treatment: Patient requires a safe and therapeutic milieu while waiting placement. Patient is LPS conserved. This appears to be patents baseline. Pt is being discharged next week [facility].
[2021-03-21] MEDS: acetaminophen 325mg tablet PO PRN ×2 (03:28→20:41)
[2021-03-21 07:30] VITALS: BP 130/79
[2021-03-21] MEDS: trihexyphenidyl HCL 5 MG tablet PO SCH ×3 (07:52→20:30)
[2021-03-21] MEDS: atorvastatin 10mg tablet PO SCH (07:52)
[2021-03-21] MEDS: divalproex 250mg tablet, delayed-release PO SCH (07:52)
[2021-03-21] MEDS: pantoprazole 40mg Tablet.DR PO SCH (07:52)
[2021-03-21] MEDS: haloperidol 5mg tablet PO SCH ×4 (07:53→20:30)
[2021-03-21] MEDS: NICOTINE POLACRILEX 2 MG LOZENGE BC PRN ×4 (07:57→18:32)
[2021-03-21] MEDS: LORazepam 1 MG tablet PO PRN ×2 (09:37→20:40)
--- NOTE | 2021-03-21 14:28 | NUR ---
Pt. attended group today. We discussed the three different communication styles that people can fall into it Passive, Assertive and Aggressive. They were asked to try to express which one they felt their communication style fell into and then which one they would like to be. Pt began group quietly, he did not engage much. He left once and came back into the group. At this point this Regulatory And Compliance Technician asked him if he wanted to share anything in the group. He began to get very frustrated and in a loud voice stated, "You didn't provide enough information about this. You aren't doing this right, there needs to be more information about this."This Regulatory And Compliance Technician invited him to share with the group what information he felt needed to be added. He became loud and angry at this point. He called this Regulatory And Compliance Technician "a dumb blonde". This Regulatory And Compliance Technician reminded him of our group guidelines that we agreed to treat each other respectfully. Pt was asked to either cooperate with Group Guidelines or he would have to leave the group. This only made him more angry. MARTINA Eden was in the room and let him know if he couldn't calm down security would be called, Pt responded loudly that he wasn't going to be leaving. At this point Meek told him he was going to call Security, Pt got up and left after Meek left the room. PRIMO - Natasha Moe LCSW
--- NOTE | 2021-03-21 17:57 | NUR ---
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 Pt Public Guardian is Thuy Frost phone number #[phone]. Pt was at [place], and was becoming paranoid about his finances. It was found that $200 of his PNI money was unaccounted for and this escalated the patient. Pt began having outbursts of anger and became increasingly paranoid and delusional towards staff and peers. Assessment What has happened this shift: RN received pt. asleep in bed at start of shift. Pt. awoke for breakfast and took all medications. Pt. ate all meals in community room. 1:1 done at bedside, pt. reports he is upset that he cant listen to his mp3 player when he wants to. Pt. denies SI/HI, A/V hallucinations. Pt. attended AM group, but became disruptive when he misunderstood the intention of the group. Pt. refused to leave the group and this RN informed him that security would be called. Pt. eventually left but was upset and yelling. Pt. received Ativan 1mg po with good effect. Pt. later apologized for his outburst, pt. states, Sometimes I just get obnoxious. Pt. observed pacing the unit while listening to headphones. S/I, H/I: Pt denies A/VH: Denies, however pt. appears to be responding to internal stimuli. Sleep: Pt. slept 7.25 hour on shift manager and napped approx.. 2 hours on day shift. ADL's: Independent Group attendance: Yes, but was asked to leave because of disrupting group. Were meds taken: Yes Any med S/E: Denies Mental Status Exam Appearance: Neat and clean wearing jeans, purple shirt, and sports jacket. Hair pulled back in a ponytail. Eye contact: WNL Behavior: Easily agitated and uncooperative at times, watching TV in community with peers. More socially withdrawn today. Speech: WNL Mood: Irritable and agitated. Affect: Flat Thought process: Paranoid, personalization, persecutory delusions Thought Content: Delusions. Wanting to listen to his MP3 player. Cognition: Alert & oriented x4. Insight: Poor Judgment: Poor Interventions PRN's used: Ativan x1, Nicotine lozenges Therapeutic interventions: 1:1 assessment, therapeutic conversation, active listening, medication administration/education/monitoring, behavior monitoring and intervention as needed; reality orientation, distraction, redirection, provided encouragement and positive reinforcement, Q 15 minute safety checks. Restraints/seclusion/emergency medication: N/A Justification of Continued Inpatient Treatment: Patient requires a safe and therapeutic milieu while waiting placement. Patient is LPS conserved. This appears to be patents baseline. Pt is being discharged next week to [facility].
[2021-03-21] MEDS: olanzapine 10mg tablet PO SCH ×2 (18:06→20:31)
[2021-03-21 20:30] VITALS: BP 121/84
[2021-03-21] MEDS: temazepam 15mg capsule PO SCH (20:30)
[2021-03-21] MEDS: divalproex sodium 500mg tablet.DR PO SCH (20:31)
--- NOTE | 2021-03-21 21:06 | NUR ---
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 Pt Public Guardian is Thuy Frost phone number #[phone]. Pt was at [place], and was becoming paranoid about his finances. It was found that $200 of his PNI money was unaccounted for and this escalated the patient. Pt began having outbursts of anger and became increasingly paranoid and delusional towards staff and peers. Assessment What has happened this shift: Pt was at nurses station asking for a nicotine lozenge at change of shift. Pt states "I'm like a [employer], my wires are all messed up tonight." However patient is in a pleasant mood, laughing and joking with staff. Pt spent evening watching tv and is med compliant. Pt is talking about how he can walk fast because he has nice shoes. Pt requested ativan and tylenol at HS c/o legs aching at night and states tylenol helps him relax. S/I, H/I: Pt denies A/VH: Denies, however pt. appears to be responding to internal stimuli. Sleep: Pt. slept 7.25 hour on hotel night auditor and napped approx.. 2 hours on day shift. ADL's: Independent Group attendance: Yes, but was asked to leave because of disrupting group. Were meds taken: Yes Any med S/E: Denies Mental Status Exam Appearance: Neat and clean wearing jeans, purple shirt, and sports jacket. Hair pulled back in a ponytail. Eye contact: WNL Behavior: Easily agitated and uncooperative at times, watching TV in community with peers. More socially withdrawn today. Speech: WNL Mood: Irritable and agitated. Affect: Flat Thought process: Paranoid, personalization, persecutory delusions Thought Content: Delusions. Wanting to listen to his MP3 player. Cognition: Alert & oriented x4. Insight: Poor Judgment: Poor Interventions PRN's used: ativan, tylenol Therapeutic interventions: 1:1 assessment, therapeutic conversation, active listening, medication administration/education/monitoring, behavior monitoring and intervention as needed; reality orientation, distraction, redirection, provided encouragement and positive reinforcement, Q 15 minute safety checks. Restraints/seclusion/emergency medication: N/A Justification of Continued Inpatient Treatment: Patient requires a safe and therapeutic milieu while waiting placement. Patient is LPS conserved. This appears to be patents baseline. Pt is being discharged next week [facility].
[2021-03-21] MEDS ORDERED: zolpidem 5mg tablet PO ONE (22:55)
[2021-03-22 08:01] VITALS: BP 90/52
[2021-03-22] MEDS: divalproex 250mg tablet, delayed-release PO SCH (08:39)
[2021-03-22] MEDS: haloperidol 5mg tablet PO SCH ×4 (08:39→20:43)
[2021-03-22] MEDS: atorvastatin 10mg tablet PO SCH (08:40)
[2021-03-22] MEDS: trihexyphenidyl HCL 5 MG tablet PO SCH ×3 (08:40→20:43)
[2021-03-22] MEDS: pantoprazole 40mg Tablet.DR PO SCH (08:40)
[2021-03-22] MEDS: LORazepam 1 MG tablet PO PRN (09:23)
[2021-03-22] MEDS: NICOTINE POLACRILEX 2 MG LOZENGE BC PRN ×2 (12:39→16:08)
--- NOTE | 2021-03-22 13:22 | NUR ---
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 Pt Public Guardian is Thuy Frost phone number #[phone]. Pt was at [place], and was becoming paranoid about his finances. It was found that $200 of his PNI money was unaccounted for and this escalated the patient. Pt began having outbursts of anger and became increasingly paranoid and delusional towards staff and peers. Assessment What has happened this shift: Received patient sleeping at shift change, no distress noted. Per NOC shift report pt had a difficult time sleeping and was administered Ambien. I slept in. I slept until 8oclock. Pt stated I woke up on the wrong of the bed this morning. I am not in a good mood. Pt still presented calm and cooperative. Pt requested PRN Ativan around 0900. Administered 1mg with good effect. Pt continues with his baseline delusional statements All I need is a good heat shield. When I go to space and orbit in a tin can. S/I, H/I: Pt denies both. A/VH: Denies, however pt. appears to be responding to internal stimuli. Pt has conversations with self. Sleep: 7.75 hours per sleep report. ADL's: Independent Group attendance: Declined. Were meds taken: Yes, without issue. Any med S/E: Pt denies, none observed. Mental Status Exam Appearance: Neat and clean wearing black jeans, black collared shirt and ball cap. Eye contact: Good. Behavior: Cooperative, stated he was in a bad mood, but no behavior. Paced phillips, watched T.V. Speech: Clear, audible. Mood: I am in a bad mood. (No behaviors) Affect: Flat Thought process: Paranoid, delusional. Thought Content: Delusions. Cognition: A&O x4 Insight: Poor Judgment: Poor Interventions PRN's used: None. Therapeutic interventions: Maintained safe and therapeutic milieu medication administration/education/monitoring, behavior monitoring and intervention as needed; reality orientation, distraction, redirection, provided encouragement and positive reinforcement, Q 15 minute safety checks. Restraints/seclusion/emergency medication: N/A Justification of Continued Inpatient Treatment: Patient requires a safe and therapeutic milieu while waiting placement. Patient is LPS conserved. This appears to be patents baseline.
--- NOTE | 2021-03-22 14:21 | NUR ---
Before group today this Scientific Software Engineer checked in with Pt regarding how things went yesterday in group. Pt. apologized for his behavior and reported that he will behave in a more respectful way today. This Scientific Software Engineer let him know that if he cannot control his behavior he may be asked to leave again. He nodded in understanding and reported that he is in a better mood today. Pt. attended group today. Today we continued our discussion from yesterday about Healthy Communication and focused on learning about I Statements. Patients engaged in practice in the second half of the group by writing out their own I Statements using a current scenario with the help of this Scientific Software Engineer on the white board. Pt. was engaged in group today and kept his behavior in check. He was calm and pleasant to work with. He did the practical part of writing out "I statements" and demonstrated understanding in how to do that concrete work. Many times when given the floor to share his thought process he would veer into loose associations which were hard to piece together. At one point this Scientific Software Engineer heard his quietly call a peer a drama garcia, this Scientific Software Engineer reminded him that he must stay respectful which he managed to do for the rest of group. This Scientific Software Engineer let him know at the end of group that I appreciated his apology and his behavior today, he reported that he felt like he accomplished something in today's group which felt good. PRIMO - Natasha Moe LCSW
[2021-03-22] MEDS: olanzapine 10mg tablet PO SCH ×2 (18:00→20:42)
[2021-03-22 20:28] VITALS: BP 132/88
[2021-03-22] MEDS: divalproex sodium 500mg tablet.DR PO SCH (20:42)
[2021-03-22] MEDS: temazepam 15mg capsule PO SCH (20:43)
[2021-03-22] MEDS ORDERED: diphenhydrAMINE 50 mg/ml inj ONE (22:32)
[2021-03-22] MEDS ORDERED: haloperidol lactate 5mg/ml inj ONE (22:32)
[2021-03-22] MEDS ORDERED: LORazepam 2 mg/ml vial ONE (22:33)
[2021-03-22] MEDS: neomy sulf/polymyx B sulf/HC 10ml otic suspension LEFT EAR SCH (23:46)
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
[2021-03-23 07:42] VITALS: BP 98/76
[2021-03-23] MEDS: pantoprazole 40mg Tablet.DR PO SCH (08:12)
[2021-03-23] MEDS: atorvastatin 10mg tablet PO SCH (08:12)
[2021-03-23] MEDS: haloperidol 5mg tablet PO SCH ×4 (08:13→21:04)
[2021-03-23] MEDS: trihexyphenidyl HCL 5 MG tablet PO SCH ×3 (08:13→21:05)
[2021-03-23] MEDS: neomy sulf/polymyx B sulf/HC 10ml otic suspension LEFT EAR SCH ×2 (08:13→16:11)
[2021-03-23] MEDS: divalproex 250mg tablet, delayed-release PO SCH (08:14)
[2021-03-23] MEDS: NICOTINE POLACRILEX 2 MG LOZENGE BC PRN ×4 (08:39→21:10)
--- NOTE | 2021-03-23 09:01 | NUR ---
Reassessment: Pt continues eating well with averages 75-100% PO intake. LBM 03/21. PRN bowel care available. No nutrition intervention implemented at this time. Will continue to follow. Recommend: 1. Continue regular diet 2. Bowel care as needed 3. Weekly scaled weights Addendum: 03/23/21 at [address] Amended: Links added.
[2021-03-23] MEDS: LORazepam 1 MG tablet PO PRN (09:11)
[2021-03-23] MEDS: haloperidol 5mg tablet PO PRN (10:42)
--- NOTE | 2021-03-23 12:14 | NUR ---
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 Pt Public Guardian is Thuy Frost phone number #[phone]. Pt was at [place], and was becoming paranoid about his finances. It was found that $200 of his PNI money was unaccounted for and this escalated the patient. Pt began having outbursts of anger and became increasingly paranoid and delusional towards staff and peers. Assessment What has happened this shift: Received patient sleeping at shift change, no distress noted. Pt was awoken for breakfast, ate and went back to bed. Pt woke and was agitated. Hydraulic Oil Tool Operator overheard pt hanging up phone and storming back to his room I hate women! Pt sitting on bed I hate that bitch! They gave me a shot last night! Pt was also observed at nurses station rambling with a loud voice It was the Nepalese invasion. They were flying the [place]e flag, who, Hugo Sebewaing. Pt perseverated about I want to fall asleep by taking pills, not getting shots. Pt continued to escalate, when asked if pt wanted his PRNs pt said yes. Administered 2mg Ativan, then 10mg Haldol with effect. Pt was still irritable, but was redirectable. Pt continues with his baseline delusional statements I am going to quit smoking to piss Biden off. S/I, H/I: Pt denies both. A/VH: Denies, however pt. appears to be responding to internal stimuli. Pt has conversation with self. Sleep: 7.75 hours per sleep report. ADL's: Independent Group attendance: Yes, was calm and participated. Were meds taken: Yes, without issue. Any med S/E: Pt denies, none observed. Mental Status Exam Appearance: Neat and clean wearing appropriate personal attire. Eye contact: Good. Behavior: Irritated today, but was able to be redirected. Paced phillips, sat in his room looking out window. Speech: Clear, audible, loud at times. Mood: Labile Affect: Flat Thought process: Perseverating Thought Content: Delusions. Unhappy about receiving emergency medication last night. Cognition: A&O x4 Insight: Poor Judgment: Poor Interventions PRN's used: Ativan, Haldol. Therapeutic interventions: Maintained safe and therapeutic milieu medication administration/education/monitoring, behavior monitoring and intervention as needed; reality orientation, distraction, redirection, provided encouragement and positive reinforcement, Q 15 minute safety checks. Restraints/seclusion/emergency medication: N/A Justification of Continued Inpatient Treatment: Patient requires a safe and therapeutic milieu while waiting placement. Patient is LPS conserved. This appears to be patents baseline.
--- NOTE | 2021-03-23 13:04 | NUR ---
PLACEMENT UPDATE Hardik was accepted at [facility]. Hardik refused to go due to it being a non-smoking facility and his Public Guardian is not going to force him to go. Packet is at [facility]. There are no other viable facilities for placement at this time. Hardik has been denied at [facility], [facility], [facility], [facility], and [place]. LEXIE Squires
--- NOTE | 2021-03-23 14:39 | NUR ---
Pt. attended group today. We discussed the different classifications of boundaries such as rigid, porous and healthy. We also discussed how boundaries can impact many different spheres i.e we can have emotional, physical, sexual, material and intellectual and time restraints. We then did an activity to help them personalize the information and learn how to set boundaries in their own lives. Pt. reported that he was in a good mood today at the beginning of the group. He was engaged in the group speaking up and sharing, often interrupting others. He was able show resiliency when this Sales Planning Analyst let him know that he needed to allow someone else to finish speaking, and he apologized for his behavior and stopped talking. He would often start to share appropriately on topic content but more often then not it would begin to tangent into loose associations. He was able to do the activity and was happy to share his boundary issues with the group. PRIMO - Natasha Moe LCSW
[2021-03-23] MEDS: olanzapine 10mg tablet PO SCH ×2 (18:05→21:04)
[2021-03-23] MEDS: divalproex sodium 500mg tablet.DR PO SCH (21:04)
[2021-03-23] MEDS: temazepam 15mg capsule PO SCH (21:05)
[2021-03-24] MEDS: LORazepam 1 MG tablet PO PRN ×2 (03:29→13:56)
[2021-03-24] MEDS: acetaminophen 325mg tablet PO PRN (03:30)
[2021-03-24] MEDS: temazepam 15mg capsule PO SCH ×2 (04:03→20:57)
--- NOTE | 2021-03-24 04:11 | NUR ---
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 Pt Public Guardian is Thuy Frost phone number #[phone]. Pt was at [place], and was becoming paranoid about his finances. It was found that $200 of his PNI money was unaccounted for and this escalated the patient. Pt began having outbursts of anger and became increasingly paranoid and delusional towards staff and peers. Assessment What has happened this shift: Patient watching TV in listening to headphones in the recreation room with peer at the beginning of shift. Patient cooperative with most care; compliant with medication. PRNs Nicotine lozenge, Ativan, Tylenol and repeat dose of Temazepam provided upon request. Patient denies SI, HI, A/VH but is observed responding to IS. He continues to report delusional thought content of "being taken advantage of" when he takes Haldol. Patient also c/o "restless legs" when he takes Haldol. Patient participated in HS snack and showered prior to bed; he is observed sleeping and appears to be sleeping better than previous HS shift. S/I, H/I: Denies A/VH: Responding to IS Sleep: Refer to sleep assessment ADL's: Independent Group attendance: NA Were meds taken: Yes Any med S/E: Patient c/o "restless legs" d/t Haldol Mental Status Exam Appearance: Showered, neat, wearing green hospital scrubs. Eye contact: Good. Behavior: Pleasant, cooperative, listening to music, and watching TV with peer Speech: Clear, audible, loud at times. Mood: Labile Affect: Flat Thought process: Delusional, perseverates Thought Content: He's being "taken advantage of" when he takes Haldol; Haldol is causing "restless legs" Cognition: A&O x4 Insight: Poor Judgment: Poor Interventions PRN's used: Ativan, Nicotine lozenge, repeat Temazepam, Tylenol Therapeutic interventions: Maintained safe and therapeutic milieu medication administration/education/monitoring, behavior monitoring and intervention as needed; reality orientation, distraction, redirection, provided encouragement and positive reinforcement, Q 15 minute safety checks. Restraints/seclusion/emergency medication: N/A Justification of Continued Inpatient Treatment: Patient requires a safe and therapeutic milieu while waiting placement. Patient is LPS conserved. This appears to be patents baseline.
[2021-03-24 07:37] VITALS: BP 92/42
[2021-03-24] MEDS: haloperidol 5mg tablet PO SCH ×4 (08:44→20:56)
[2021-03-24] MEDS: divalproex 250mg tablet, delayed-release PO SCH (08:44)
[2021-03-24] MEDS: neomy sulf/polymyx B sulf/HC 10ml otic suspension LEFT EAR SCH ×3 (08:44→16:55)
[2021-03-24] MEDS: atorvastatin 10mg tablet PO SCH (08:45)
[2021-03-24] MEDS: pantoprazole 40mg Tablet.DR PO SCH (08:45)
[2021-03-24] MEDS: trihexyphenidyl HCL 5 MG tablet PO SCH ×3 (08:45→21:10)
[2021-03-24] MEDS: NICOTINE POLACRILEX 2 MG LOZENGE BC PRN ×2 (10:08→13:56)
--- NOTE | 2021-03-24 17:52 | NUR ---
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 Pt Public Guardian is Thuy Frost phone number #[phone]. Pt was at [place], and was becoming paranoid about his finances. It was found that $200 of his PNI money was unaccounted for and this escalated the patient. Pt began having outbursts of anger and became increasingly paranoid and delusional towards staff and peers. Assessment What has happened this shift: Received patient sleeping at shift change, no distress noted. Received in report patient was administered Temazepam at 0400. Pt was awoken around 0900 to administer medications. Pt presented as sedated and was requested to stay at bedside and breakfast tray would be brought to him. Pt was a little irritated that he had to wait for his breakfast tray as aligner typewriter had to request a new tray Someone took my tray! I am tired of people always taking my stuff! I am suing to eat breakfast in my room permanently! Pt was calm after eating, eating 100%. Pt dressed and paced phillips still appearing a little sedated. Pt stated I had a bad night last night. I was all over the place and the ants were eating me alive, which is my he asked for the other dose of Temazepam. Assistant General Manager suggested he not request mediation so close to waking hours, pt agreed as he didnt like feeling druggy. Pt slept intermittently throughout the day. Pt requested and Ativan around 1400 stated I am just not up to par. I am losing my legs because their fat. Attempted therapeutic conversation, pt stated I just need an Ativan. Pt is receiving ear drops to left ear, no pain reported, noted some dry blood on cotton ball. Provider is aware, will continue to monitor. S/I, H/I: Pt denies both. A/VH: Denies, however pt. appears to be responding to internal stimuli. Pt has conversation with self. Sleep: 7.25 hours per sleep report. ADL's: Independent Group attendance: No. Were meds taken: Yes, without issue. Any med S/E: Pt denies, none observed. Mental Status Exam Appearance: Neat and clean wearing appropriate personal attire. Eye contact: Good. Behavior: Irritated today, but was able to be redirected. Paced phillips, sat in his room looking out window. Speech: Clear, audible, loud at times. Mood: Sedated to Euthymic Affect: Flat Thought process: Perseverating Thought Content: Delusions. Unhappy about receiving emergency medication last night. Cognition: A&O x4 Insight: Poor Judgment: Poor Interventions PRN's used: None. Therapeutic interventions: Maintained safe and therapeutic milieu medication administration/education/monitoring, behavior monitoring and intervention as needed; reality orientation, distraction, redirection, provided encouragement and positive reinforcement, Q 15 minute safety checks. Restraints/seclusion/emergency medication: N/A Justification of Continued Inpatient Treatment: Patient requires a safe and therapeutic milieu while waiting placement. Patient is LPS conserved. This appears to be patents baseline.
[2021-03-24] MEDS: olanzapine 10mg tablet PO SCH ×2 (18:05→20:56)
[2021-03-24 19:28] VITALS: BP 122/90
[2021-03-24] MEDS: divalproex sodium 500mg tablet.DR PO SCH (20:56)
--- NOTE | 2021-03-25 01:47 | NUR ---
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 Pt Public Guardian is Thuy Frost phone number #[phone]. Pt was at [place], and was becoming paranoid about his finances. It was found that $200 of his PNI money was unaccounted for and this escalated the patient. Pt began having outbursts of anger and became increasingly paranoid and delusional towards staff and peers. Assessment What has happened this shift: Patient laying in bed at the beginning of shift. Pleasant and cooperative with care; compliant with medication. Patient denies SI, HI, A/VH. No delusional thought content provided at this time. Patient refused HS snack and remained in bed. He is observed sleeping and does not appear to be having difficulty. S/I, H/I: Denies A/VH: Denies Sleep: Refer to sleep assessment ADL's: Independent Group attendance: NA Were meds taken: Yes Any med S/E: None reported or observed this shift Mental Status Exam Appearance: Neat, appropriately dressed in personal attire. Eye contact: Good Behavior: Asleep, pleasant and cooperative Speech: Clear, audible, loud at times. Mood: Fatigued Affect: Congruent to mood Thought process: Thought Content: Sleep, meeting needs Cognition: A&O x4 Insight: Poor Judgment: Poor Interventions PRN's used: None Therapeutic interventions: Maintained safe and therapeutic milieu medication administration/education/monitoring, behavior monitoring and intervention as needed; reality orientation, distraction, redirection, provided encouragement and positive reinforcement, Q 15 minute safety checks. Restraints/seclusion/emergency medication: N/A Justification of Continued Inpatient Treatment: Patient requires a safe and therapeutic milieu while waiting placement. Patient is LPS conserved. This appears to be patents baseline.
[2021-03-25 08:00] VITALS: BP 111/68
[2021-03-25] MEDS: haloperidol 5mg tablet PO SCH ×4 (08:05→20:20)
[2021-03-25] MEDS: trihexyphenidyl HCL 5 MG tablet PO SCH ×3 (08:05→20:20)
[2021-03-25] MEDS: atorvastatin 10mg tablet PO SCH (08:05)
[2021-03-25] MEDS: pantoprazole 40mg Tablet.DR PO SCH (08:06)
[2021-03-25] MEDS: divalproex 250mg tablet, delayed-release PO SCH (08:06)
[2021-03-25] MEDS: neomy sulf/polymyx B sulf/HC 10ml otic suspension LEFT EAR SCH ×3 (08:07→16:00)
[2021-03-25] MEDS: NICOTINE POLACRILEX 2 MG LOZENGE BC PRN ×3 (11:03→18:23)
[2021-03-25] MEDS: LORazepam 1 MG tablet PO PRN (14:54)
[2021-03-25] MEDS: olanzapine 10mg tablet PO SCH ×2 (17:33→20:20)
--- NOTE | 2021-03-25 17:42 | NUR ---
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 Pt Public Guardian is Thuy Frost phone number #[phone]. Pt was at [place], and was becoming paranoid about his finances. It was found that $200 of his PNI money was unaccounted for and this escalated the patient. Pt began having outbursts of anger and became increasingly paranoid and delusional towards staff and peers. Assessment What has happened this shift: Pt was pleasant today, but sat in his room for a while talking loudly to voices and looking out the window. He requested Ativan once and states theyre dropping like flies out there, I can feel it. He also states I have too much luck, I was born on black Sabbath you know. He otherwise was pleasant and cooperative with RN. Ear drops to L ear. 0 drg noted. Pt denies ear pain. S/I, H/I: Pt Denies A/VH: Pt Denies Sleep: No naps during the day ADL's: Independent Group attendance: No group, but went out to patio time Were meds taken: Yes Any med S/E: None noted Mental Status Exam Appearance: Wearing personal clothes; Changes throughout the day. Eye contact: Direct Behavior: Pleasant Speech: WNL, sometimes loud Mood: Paranoid Affect: Blunted Thought process: Thought blocking Thought Content: Delusions Cognition: Alert Insight: Poor Judgment: Poor Interventions PRN's used: Ativan, Nicotine lozenges Therapeutic interventions: Maintained safe and therapeutic milieu medication administration/education/monitoring, behavior monitoring and intervention as needed; reality orientation, distraction, redirection, provided encouragement and positive reinforcement, Q 15 minute safety checks. Restraints/seclusion/emergency medication: N/A Justification of Continued Inpatient Treatment: Patient requires a safe and therapeutic milieu while waiting placement. Patient is LPS conserved. This appears to be patents baseline.
[2021-03-25 19:42] VITALS: BP 107/84
[2021-03-25] MEDS: divalproex sodium 500mg tablet.DR PO SCH (20:19)
[2021-03-25] MEDS: temazepam 15mg capsule PO SCH (20:20)
[2021-03-26] MEDS: temazepam 15mg capsule PO SCH ×2 (00:29→20:37)
[2021-03-26] MEDS: haloperidol 5mg tablet PO PRN (02:00)
[2021-03-26] MEDS: LORazepam 1 MG tablet PO PRN (02:00)
--- NOTE | 2021-03-26 02:46 | NUR ---
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 Pt Public Guardian is Thuy Frost phone number #[phone]. Pt was at [place], and was becoming paranoid about his finances. It was found that $200 of his PNI money was unaccounted for and this escalated the patient. Pt began having outbursts of anger and became increasingly paranoid and delusional towards staff and peers. Assessment What has happened this shift: Patient active on the unit at the beginning of shift. Pleasant and cooperative with care; compliant with medication. Patient denies SI, HI, A/VH; he expressed some delusional thought content of peer going into to his room and steeling pens but peer had not left community room at the time. Patient became irritable and loud briefly but was able to be redirected. Patient participated in HS snack prior to bed. Patient reported difficulty getting to sleep and repeat Temazepam provided. Early AM patient expressed agitation d/t not being able to sleep and Ativan 2mg and Haldol 10mg provided. Patient is currently still having difficulty sleeping but pleasant and cooperative with technical document writer. S/I, H/I: Denies A/VH: Denies Sleep: Refer to sleep assessment ADL's: Independent Group attendance: NA Were meds taken: Yes Any med S/E: None reported or observed this shift Mental Status Exam Appearance: Neat, appropriately dressed in personal attire. Eye contact: Good Behavior: Cooperative, some agitation, listening to headphones and pacing Speech: Clear, audible, loud at times. Mood: Labile Affect: Congruent to mood Thought process: Paranoid and persecutory delusions Thought Content: Meeting needs, peer steeling pens from his room, not being able to sleep Cognition: A&O x4 Insight: Poor Judgment: Poor Interventions PRN's used: Repeat Temazepam, Ativan 2mg, Haldol 10mg Therapeutic interventions: Maintained safe and therapeutic milieu medication administration/education/monitoring, behavior monitoring and intervention as needed; reality orientation, distraction, redirection, provided encouragement and positive reinforcement, Q 15 minute safety checks. Restraints/seclusion/emergency medication: N/A Justification of Continued Inpatient Treatment: Patient requires a safe and therapeutic milieu while waiting placement. Patient is LPS conserved. This appears to be patents baseline.
[2021-03-26 08:00] VITALS: BP 97/58
[2021-03-26] MEDS: trihexyphenidyl HCL 5 MG tablet PO SCH ×3 (08:06→20:37)
[2021-03-26] MEDS: neomy sulf/polymyx B sulf/HC 10ml otic suspension LEFT EAR SCH ×3 (08:06→16:23)
[2021-03-26] MEDS: haloperidol 5mg tablet PO SCH ×4 (08:07→20:36)
[2021-03-26] MEDS: atorvastatin 10mg tablet PO SCH (08:07)
[2021-03-26] MEDS: divalproex 250mg tablet, delayed-release PO SCH (08:07)
[2021-03-26] MEDS: pantoprazole 40mg Tablet.DR PO SCH (08:07)
[2021-03-26] MEDS: NICOTINE POLACRILEX 2 MG LOZENGE BC PRN ×4 (08:44→18:43)
--- NOTE | 2021-03-26 16:29 | NUR ---
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 Pt Public Guardian is Thuy Frost phone number #[phone]. Pt was at [place], and was becoming paranoid about his finances. It was found that $200 of his PNI money was unaccounted for and this escalated the patient. Pt began having outbursts of anger and became increasingly paranoid and delusional towards staff and peers. Assessment What has happened this shift: Pt. awake at change of shift, ate meals in community room, 1:1 done at bedside. Pt cooperative with assessment. Pt states Im insane, I have a monster living in my window, a spider on the outside who talks to me and blesses my food. Pt. denies auditory and visual hallucinations as well as SI/HI. Pt. reports he fell last night at approx. 2am, stating he stumbled over his own feet and lander on his knees, no injuries reported, denies pain. Brake Rider asked why he did not inform the NOC shift about his fall and he was unable to give a clear answer. DIOGENES Brooke notified. S/I, H/I: Pt Denies A/VH: Pt Denies Sleep: Pt seen resting in his bed on and off throughout the day. ADL's: Independent Group attendance: No groups today Were meds taken: Yes Any med S/E: Pt. reporting restless legs at night. DIOGENES Brooke requesting [facility] shift to visualize this complaint. Mental Status Exam Appearance: Wearing personal clothes, hair in pony tail. Eye contact: Direct Behavior: Pleasant Speech: Normal rate and rhythm Mood: Paranoid Affect: Blunted Thought process: Thought blocking Thought Content: Delusional Cognition: Alert Insight: Poor Judgment: Poor Interventions PRN's used: Nicotine lozenges X3 Therapeutic interventions: Maintained safe and therapeutic milieu medication administration/education/monitoring, behavior monitoring and intervention as needed; reality orientation, distraction, redirection, provided encouragement and positive reinforcement, Q 15 minute safety checks. Restraints/seclusion/emergency medication: N/A Justification of Continued Inpatient Treatment: Patient requires a safe and therapeutic milieu while waiting placement. Patient is LPS conserved. This appears to be patents baseline.
[2021-03-26] MEDS: olanzapine 10mg tablet PO SCH ×2 (17:56→20:37)
[2021-03-26 19:11] VITALS: BP 111/68
[2021-03-26] MEDS: divalproex sodium 500mg tablet.DR PO SCH (20:37)
--- NOTE | 2021-03-27 03:06 | NUR ---
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 Pt Public Guardian is Thuy Frost phone number #[phone]. Pt was at [place], and was becoming paranoid about his finances. It was found that $200 of his PNI money was unaccounted for and this escalated the patient. Pt began having outbursts of anger and became increasingly paranoid and delusional towards staff and peers. Assessment What has happened this shift: Patient social with staff and pacing the unit at the beginning of shift. Pleasant and cooperative with care; compliant with medication. PRN Nicotine lozenge provided upon request. Patient denies SI, HI, A/VH; appear to respond to IS and continues to report delusional thought content. Patient explained having an upsetting conversation with a male he didn't want to name and talked about unknown male "wanting to impregnate his girlfriend." After play writer explained if a conversation is upsetting him he should ask the other person to stop but he continued, "but then he just goes there and gets cuts himself up into a million pieces." Fur Scraper was able to redirect with a different conversation where he began smiling and pacing the unit again. Patient participated in HS snack prior to bed and explained he is cutting out coffee at night to get better sleep. He is observed sleeping and does not appear to be having difficulty this shift. No complaints or signs of restless legs. S/I, H/I: Denies A/VH: Appear to respond to IS Sleep: Refer to sleep assessment ADL's: Independent Group attendance: NA Were meds taken: Yes Any med S/E: None reported or observed this shift Mental Status Exam Appearance: Neat, appropriately dressed in personal attire. Eye contact: Good Behavior: Pleasant and cooperative, social, pacing the unit Speech: Clear, audible, loud at times. Mood: Euthymic Affect: Animated Thought process: Delusions, circumstantial Thought Content: Meeting needs, delusions, cutting coffee at night to sleep better Cognition: A&O x4 Insight: Poor Judgment: Poor Interventions PRN's used: Nicotine lozenge Therapeutic interventions: Maintained safe and therapeutic milieu medication administration/education/monitoring, behavior monitoring and intervention as needed; reality orientation, distraction, redirection, provided encouragement and positive reinforcement, Q 15 minute safety checks. Restraints/seclusion/emergency medication: N/A Justification of Continued Inpatient Treatment: Patient requires a safe and therapeutic milieu while waiting placement. Patient is LPS conserved. This appears to be patents baseline.
[2021-03-27] MEDS: NICOTINE POLACRILEX 2 MG LOZENGE BC PRN (07:16)
[2021-03-27 08:00] VITALS: BP 100/56
[2021-03-27] MEDS: divalproex 250mg tablet, delayed-release PO SCH (08:28)
[2021-03-27] MEDS: haloperidol 5mg tablet PO SCH ×3 (08:28→20:19)
[2021-03-27] MEDS: trihexyphenidyl HCL 5 MG tablet PO SCH ×3 (08:28→20:19)
[2021-03-27] MEDS: atorvastatin 10mg tablet PO SCH (08:28)
[2021-03-27] MEDS: pantoprazole 40mg Tablet.DR PO SCH (08:28)
[2021-03-27] MEDS: neomy sulf/polymyx B sulf/HC 10ml otic suspension LEFT EAR SCH ×3 (08:30→16:43)
--- NOTE | 2021-03-27 13:59 | NUR ---
Pt. attended todays group which was about Growth Mindset versus Fixed Mindset. We discussed what the characteristics of both were and then had them think about and write down 1-3 areas they would like to work on to expand their growth mindset. The sheets they were provided with also had pictures that they could decorate and color to go along with the theme. Pt. was in a bright and positive mood. He participated well in the discussion and the activity. He was able to identify what he would like to work on moving forward to develop a growth mindset. There were times his thoughts would tangent into loose associations but for the most part he stayed present with the group topic. At one point he found something to be very funny and got the whole group laughing. He demonstrated some insight into his situation. PRIMO- Natasha Moe LCSW
[2021-03-27] MEDS: haloperidol 10mg/5ml UD oral solution PO SCH (17:20)
[2021-03-27] MEDS: olanzapine 10mg tablet PO SCH ×2 (17:20→20:19)
--- NOTE | 2021-03-27 17:35 | NUR ---
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 Pt Public Guardian is Thuy Frost phone number #[phone]. Pt was at [place], and was becoming paranoid about his finances. It was found that $200 of his PNI money was unaccounted for and this escalated the patient. Pt began having outbursts of anger and became increasingly paranoid and delusional towards staff and peers. Assessment What has happened this shift: Received pt sleeping w/o distress at the beginning of the shift. Pt cooperative with vitals and received a Nicotine Doris. Before breakfast. Pt ate all meals well and interacted with staff and peers appropriately and with no angry or delusional outbursts. Pt cooperative with AM assessments and enjoyed talking to the signing teacher in the afternoon. Pt weaves delusions with reality routinely. I have earwig bugs in my ear, r/t ear drops. Pt liked the change to liquid oral Haldol. S/I, H/I: Denies A/VH: Denies Sleep: Awake this shift, no naps ADL's: Independent Group attendance: Yes Were meds taken: Yes Any med S/E: Denies Mental Status Exam Appearance: Casual in own clothes Eye contact: Good Behavior: Cooperative, calm, watching TV and conversing with peers and staff Speech: Coherent, delusional at times Mood: Euthymic Affect: Calm Thought process: Linear Thought Content: Circumstantial Cognition: A&Ox3 not to situation Insight: Poor Judgment: Poor Interventions PRN's used: Therapeutic interventions: 1:1 assessment, therapeutic conversation, active listening, medication administration/education/monitoring, behavior monitoring and intervention as needed; reality orientation, limit setting, distraction, redirection, provided encouragement and positive reinforcement, Q 15 minute safety checks. Restraints/seclusion/emergency medication: N/A Justification of Continued Inpatient Treatment: Patient requires a safe and therapeutic milieu while waiting placement. Patient is LPS conserved. This appears to be patents baseline.
[2021-03-27 19:12] VITALS: BP 123/83
[2021-03-27] MEDS: temazepam 15mg capsule PO SCH (20:19)
[2021-03-27] MEDS: divalproex sodium 500mg tablet.DR PO SCH (20:19)
--- NOTE | 2021-03-27 21:09 | NUR ---
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 Pt Public Guardian is Thuy Frost phone number #[phone]. Pt was at [place], and was becoming paranoid about his finances. It was found that $200 of his PNI money was unaccounted for and this escalated the patient. Pt began having outbursts of anger and became increasingly paranoid and delusional towards staff and peers. Assessment What has happened this shift: Pt was in group room watching tv at change of shift. Pt is calm and pleasant. Pt requested liquid haldol at HS med pass, explained liquid haldol is given at other times during the day with meals. Pt states "that's just queer! Dont you think that's queer? Dont you think they're queer?" Asked patient if he is enjoying the movie he is watching and he states "No! Its stupid and queer!" Pt went to bed shortly after med pass. S/I, H/I: Denies A/VH: Denies Sleep: see sleep hours ADL's: Independent Group attendance: Yes Were meds taken: Yes Any med S/E: Denies Mental Status Exam Appearance: Casual in own clothes Eye contact: Good Behavior: Cooperative, calm, watching TV and conversing with peers and staff becomes agitated at med pass Speech: Coherent, delusional at times Mood: Euthymic Affect: Calm Thought process: Linear Thought Content: Circumstantial Cognition: A&Ox3 not to situation Insight: Poor Judgment: Poor Interventions PRN's used: none Therapeutic interventions: 1:1 assessment, therapeutic conversation, active listening, medication administration/education/monitoring, behavior monitoring and intervention as needed; reality orientation, limit setting, distraction, redirection, provided encouragement and positive reinforcement, Q 15 minute safety checks. Restraints/seclusion/emergency medication: N/A Justification of Continued Inpatient Treatment: Patient requires a safe and therapeutic milieu while waiting placement. Patient is LPS conserved. This appears to be patents baseline.
[2021-03-28] MEDS: acetaminophen 325mg tablet PO PRN (01:22)
[2021-03-28 07:18] VITALS: BP 93/66
[2021-03-28 07:34] VITALS: BP 93/66
[2021-03-28] MEDS: neomy sulf/polymyx B sulf/HC 10ml otic suspension LEFT EAR SCH ×3 (08:02→16:15)
[2021-03-28] MEDS: haloperidol 10mg/5ml UD oral solution PO SCH ×3 (08:03→18:09)
[2021-03-28] MEDS: divalproex 250mg tablet, delayed-release PO SCH (08:03)
[2021-03-28] MEDS: trihexyphenidyl HCL 5 MG tablet PO SCH ×3 (08:03→20:03)
[2021-03-28] MEDS: atorvastatin 10mg tablet PO SCH (08:03)
[2021-03-28] MEDS: pantoprazole 40mg Tablet.DR PO SCH (08:03)
[2021-03-28] MEDS: NICOTINE POLACRILEX 2 MG LOZENGE BC PRN ×3 (08:33→16:14)
--- NOTE | 2021-03-28 13:39 | NUR ---
PLACEMENT Faxed notes dated 03/05/21-03/27/21 to [facility] office for placement purposes. LEXIE Squires
--- NOTE | 2021-03-28 14:19 | NUR ---
Pt. attended group. Today in group the topic was Managing Change/Resiliency/Hope. We discussed the difference between escape coping and control coping. Each Pt. was given a Change Resiliency test that they could take to measure where they are in the process of embracing change. We also talked about what resiliency and hope mean to them. The session ended with each person sharing what hope means to them. Pt. engaged in the discussion and activity. He was alert and oriented X 4. His thought process and thought content appeared WNL. He reported that his way to describe how he feels hope is like when he is waiting for his birthday (anticipating a fun event) and then after his birthday its Thanksgiving and then [place] and he feels this is what having hope is like. Pt. was appropriate today in regards to listening to his peers and responding to them in a appropriate manner. Occasionally he would interject when others where talking but was easily redirected. He was in a good mood today with a full range of affect. He was calm and compliant throughout the group. PRIMO - Natasha Moe LCSW
--- NOTE | 2021-03-28 14:31 | NUR ---
PLACEMENT UPDATE Hardik has been denied at [facility], [facility], [facility], [place], and [facility]. LEXIE Squires
--- NOTE | 2021-03-28 16:44 | NUR ---
Nursing Progress Note: [place]. Legal hold: LPS Client on involuntary status for GD Report received from CAROLIN Fish with use of SBAR. 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 Pts Public Guardian is Thuy Frost phone number #[phone]. Pt was at [place], and was becoming paranoid about his finances. It was found that $200 of his PNI money was unaccounted for and this escalated the patient. Pt began having outbursts of anger and became increasingly paranoid and delusional towards staff and peers. Assessment What has happened this shift: Received patient sleeping at shift change, no distress noted. Pt was compliant with care and medications, requesting Nicotine lozenge after breakfast and throughout the day. Observed pt sitting in his room talking to self, listening to headphones. No behavioral issues this shift. Pt has his baseline delusional statements S/I, H/I: Denies both. A/VH: Denies both. Sleep: 7.25 hours per sleep report. No naps today. ADL's: Independent Group attendance: Yes Were meds taken: Yes, without issue. Any med S/E: Denies, none observed. Mental Status Exam Appearance: Casual in own clothes Eye contact: Good Behavior: Cooperative, calm, watching TV and conversing with peers and staff Speech: Coherent, delusional at times Mood: Euthymic Affect: Calm Thought process: Delusions with reality. Thought Content: Circumstantial Cognition: A&Ox3 not to situation Insight: Poor Judgment: Poor Interventions PRN's used: Nicotine lozenge Therapeutic interventions: 1:1 assessment, therapeutic conversation, active listening, medication administration/education/monitoring, behavior monitoring and intervention as needed; reality orientation, limit setting, distraction, redirection, provided encouragement and positive reinforcement, Q 15 minute safety checks. Restraints/seclusion/emergency medication: N/A Justification of Continued Inpatient Treatment: Patient requires a safe and therapeutic milieu while waiting placement. Patient is LPS conserved. This appears to be patents baseline.
[2021-03-28] MEDS: olanzapine 10mg tablet PO SCH ×2 (18:09→20:04)
[2021-03-28] MEDS: divalproex sodium 500mg tablet.DR PO SCH (20:04)
[2021-03-28] MEDS: haloperidol 5mg tablet PO SCH (20:04)
[2021-03-28] MEDS: temazepam 15mg capsule PO SCH (20:04)
[2021-03-28 20:40] VITALS: BP 145/80
[2021-03-29] MEDS: LORazepam 1 MG tablet PO PRN (02:32)
--- NOTE | 2021-03-29 03:29 | NUR ---
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 Pt Public Guardian is Thuy Frost phone number #[phone]. Pt was at [place], and was becoming paranoid about his finances. It was found that $200 of his PNI money was unaccounted for and this escalated the patient. Pt began having outbursts of anger and became increasingly paranoid and delusional towards staff and peers. Assessment What has happened this shift: Patient was watching tv in the rec room. He's in a pleasant mood tonight, friendly and respectful. He spends time in his room looking out the window and having conversations with himself. These talks were not his usual loud, but quiet with no outbursts. At HS med pass he says please and thank you...unusual for Hardik. He comes out in the middle of the night, "I can't sleep, can you please give me something to knock me out?" He was provided 1mg of Ativan, said thank you and went back to bed. S/I, H/I: Denies A/VH: Denies Sleep: see sleep hours ADL's: Independent Group attendance: N/A Were meds taken: Yes Any med S/E: None reported or observed Mental Status Exam Appearance: Wears his usual street clothes. Eye contact: Good Behavior: Cooperative, calm, watching TV and conversing with peers and staff. Speech: Clear, Coherent, delusional at times Mood: Euthymic Affect: Bright Thought process: Linear, occasional loose-associations Thought Content: Circumstantial Cognition: A&Ox3 not to situation Insight: Poor Judgment: Poor Interventions PRN's used: Ativan 1mg Therapeutic interventions: 1:1 assessment, therapeutic conversation, active listening, medication administration/education/monitoring, behavior monitoring and intervention as needed; reality orientation, limit setting, distraction, redirection, provided encouragement and positive reinforcement, Q 15 minute safety checks. Restraints/seclusion/emergency medication: N/A Justification of Continued Inpatient Treatment: Patient requires a safe and therapeutic milieu while waiting placement. Patient is LPS conserved. This appears to be patents baseline.
[2021-03-29 08:00] VITALS: BP 103/62
[2021-03-29] MEDS: neomy sulf/polymyx B sulf/HC 10ml otic suspension LEFT EAR SCH ×4 (08:15→23:44)
[2021-03-29] MEDS: haloperidol 10mg/5ml UD oral solution PO SCH ×3 (08:16→18:25)
[2021-03-29] MEDS: trihexyphenidyl HCL 5 MG tablet PO SCH ×3 (08:16→20:53)
[2021-03-29] MEDS: divalproex 250mg tablet, delayed-release PO SCH (08:16)
[2021-03-29] MEDS: pantoprazole 40mg Tablet.DR PO SCH (08:17)
[2021-03-29] MEDS: atorvastatin 10mg tablet PO SCH (08:17)
[2021-03-29] MEDS: NICOTINE POLACRILEX 2 MG LOZENGE BC PRN ×2 (08:48→13:50)
--- NOTE | 2021-03-29 09:10 | NUR ---
F/u 03/29: Pt continues eating well with averages 75-100% PO intake. LBM 5/4 w/ daily moderate BM's per EMR. No nutrition intervention at this time. Will continue to follow. Recommend: 1. Continue regular diet 2. Bowel care as needed 3. Weekly scaled weights Addendum: 03/29/21 at [address] Amended: Links added.
--- NOTE | 2021-03-29 14:20 | NUR ---
Pt. attended group today. The topic today was Hearing Voices. We discussed what it was like for each pt. that does hear voices and spent most of the session talking about the Coping Skills they utilize to help them distract, relax, problem solve, and care for themselves appropriately. We also did two Mindfulness/Grounding type techniques at the beginning and end of the group so they could learn some new ways to cope. Pt engaged well in group today. He took part in the activity and listened to peers well. This [employer] Officer observed delusional content. An example of this was when he shared that his coping skill was that he will call his support system if he needs help. When asked who that is he reported that he calls his monster. He went on to share that they have a great relationship. This [employer] Officer then asked the question in a different way, who in your family would you call for support? He then reported he would call his mother. He couldn't think of anyone else. He was in a good mood today. His demeanor was calm, compliant and pleasant. PRIMO- Natasha Moe LCSW
--- NOTE | 2021-03-29 14:29 | NUR ---
Nursing Progress Note Legal hold: LPS Client on involuntary status for GD Report received from CAROLIN Fish with use of SBAR. 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 Pt Public Guardian is Thuy Frost phone number #[phone]. Pt was at [place], and was becoming paranoid about his finances. It was found that $200 of his PNI money was unaccounted for and this escalated the patient. Pt began having outbursts of anger and became increasingly paranoid and delusional towards staff and peers. Assessment What has happened this shift: Received patient sleeping at shift change, no distress noted. Pt was compliant with care and medications, requesting Nicotine lozenge after breakfast and throughout the day. When administering pts eardrops pt said Their coming out of my ears like crazy. the earwigs. You know their bad in this place. No behavioral issues noted. Pt attended group, paced phillips listening to headphones or sat in his room looking out window. Pt laughing and making jokes with staff. Last Depakote level 03/19 was 62. S/I, H/I: Denies both. A/VH: Denies both. Sleep: 6.75 hours per sleep report. No naps today. ADL's: Independent Group attendance: Yes Were meds taken: Yes, without issue. Any med S/E: Denies, none observed. Mental Status Exam Appearance: Casual in own clothes, hair pulled back into a ponytail. Eye contact: Good Behavior: Cooperative, calm, watching TV and conversing with peers and staff Speech: Clear, tone is loud at times, delusional at times Mood: Euthymic Affect: Congruent with mood. Thought process: Delusions with reality. Thought Content: Circumstantial Cognition: A&Ox3 not to situation Insight: Poor Judgment: Poor Interventions PRN's used: Nicotine lozenge. Therapeutic interventions: Therapeutic conversation, active listening with positive feedback, medication administration/education/monitoring, behavior monitoring and intervention as needed; reality orientation, redirection as needed, Q 15 minute safety checks. Restraints/seclusion/emergency medication: N/A Justification of Continued Inpatient Treatment: Patient requires a safe and therapeutic milieu while waiting placement. Patient is LPS conserved. This appears to be patents baseline.
[2021-03-29] MEDS: olanzapine 10mg tablet PO SCH ×2 (18:24→20:50)
[2021-03-29 19:23] VITALS: BP 131/89
[2021-03-29] MEDS: haloperidol 5mg tablet PO SCH (20:50)
[2021-03-29] MEDS: temazepam 15mg capsule PO SCH (20:50)
[2021-03-29] MEDS: divalproex sodium 500mg tablet.DR PO SCH (20:51)
--- NOTE | 2021-03-29 23:16 | NUR ---
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 Pt Public Guardian is Thuy Frost phone number #[phone]. Pt was at [place], and was becoming paranoid about his finances. It was found that $200 of his PNI money was unaccounted for and this escalated the patient. Pt began having outbursts of anger and became increasingly paranoid and delusional towards staff and peers. Assessment What has happened this shift: The patient has been up on the unit and was friendly and social with others. He sat in the patient rec room and watched TV with others. He stated he had a good day. He denies thoughts to harm himself or others. He is medication compliant and he is aware of the names and dose of all of his evening medications. He is attending to his ADLs independently. At times he can be heard talking to himself in response to internal stimuli. He has not had any agitated behaviors. He has not had any behaviors that have required redirections. Justification of Continued Inpatient Treatment: The patient is pending placement as arranged by the public guardian's office.
[2021-03-29] MEDS: acetaminophen 325mg tablet PO PRN (23:43)
[2021-03-30] MEDS: LORazepam 1 MG tablet PO PRN ×2 (00:21→18:19)
[2021-03-30] MEDS: trihexyphenidyl HCL 5 MG tablet PO SCH ×3 (08:00→20:31)
[2021-03-30] MEDS: neomy sulf/polymyx B sulf/HC 10ml otic suspension LEFT EAR SCH ×2 (08:00→16:00)
[2021-03-30] MEDS: atorvastatin 10mg tablet PO SCH (08:00)
[2021-03-30] MEDS: pantoprazole 40mg Tablet.DR PO SCH (08:00)
[2021-03-30] MEDS: divalproex 250mg tablet, delayed-release PO SCH (08:02)
[2021-03-30] MEDS: haloperidol 10mg/5ml UD oral solution PO SCH ×3 (08:05→17:11)
[2021-03-30] MEDS: NICOTINE POLACRILEX 2 MG LOZENGE BC PRN ×5 (08:44→19:14)
[2021-03-30 08:50] VITALS: BP 91/56
--- NOTE | 2021-03-30 13:53 | NUR ---
Pt attended group today. The Group today was about Preventing a Mental Health Relapse. We discussed what their symptomatology is when they start to decompensate, what triggers them and what coping skills they can utilize to keep from relapsing. We also went over a scaling/contract for safety sheet to help them assess where themselves. We ended the group with affirmations that they were able to pick out and take with them to read. Pt. was engaged in all aspects of the group today, he entered in to the discussion though his thought content appeared to contain more delusional type content then what he has been displaying in past groups this week. Most of his thought process appeared to veer into loose associations today. He was calm and pleasant to this Seating Upholsterer and his peers. He thanked this Seating Upholsterer at the end of group. PRIMO - Natasha Moe LCSW
--- NOTE | 2021-03-30 15:44 | NUR ---
PLACEMENT UPDATE Hardik has been denied at [facility], [facility], [facility], [facility], and [place]. Updated notes were forward to [place]. LEXIE Squires
[2021-03-30] MEDS: olanzapine 10mg tablet PO SCH ×2 (17:06→20:31)
--- NOTE | 2021-03-30 18:01 | NUR ---
Nursing Progress Note Legal hold: LPS Client on involuntary status for GD Report received from CAROLIN Fish with use of SBAR. 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 Pt Public Guardian is Thuy Frost phone number #[phone]. Pt was at [place], and was becoming paranoid about his finances. It was found that $200 of his PNI money was unaccounted for and this escalated the patient. Pt began having outbursts of anger and became increasingly paranoid and delusional towards staff and peers. Assessment What has happened this shift: Received patient sleeping at shift change, no distress noted. Pt. took all medications. Pt. ate all meals in community room. Pt. was pleasant in the AM and allowed physical and 1:1 assessments. Pt. states, Im doing my best today, Kyra got to try I think my meds are right this time. Pt. observed watching TV in the community room. During afternoon pt. became increasingly agitated, talking to himself loudly, appearing to respond to internal stimuli. When asked if he was OK, pt. replied, Are you ok?. Later, pt. approaches this RN and shows him a painting, pt. states, They tell me I made this but I didnt When informed that it was made by his previous roommate states, loudly yells, Oh ! and then walks back to his room. Pt. was able to calm down without PRNs. S/I, H/I: Denies both. A/VH: Denies both. Sleep: 8 hours per sleep report. No naps observed today. ADL's: Independent Group attendance: No Were meds taken: Yes Any med S/E: Denies Mental Status Exam Appearance: Clean and well kempt. Wearing casual clothes, hair pulled back into a ponytail. Eye contact: Good Behavior: Cooperative, calm, watching TV and conversing with peers and staff and staff in AM. Becomes agitated and appears to respond to internal stimuli in the afternoon, yelling to himself. Pt. was able to calm down without PRNs. Speech: Loud. Mood: Euthymic in AM, some agitation in afternoon. Affect: Congruent with mood. Thought process: Paranoid delusions. Personalization. Thought Content: Circumstantial. Cognition: A&Ox3 not to situation Insight: Poor Judgment: Poor Interventions PRN's used: Nicotine lozenges Therapeutic interventions: Therapeutic conversation, active listening with positive feedback, medication administration/education/monitoring, behavior monitoring and intervention as needed; reality orientation, redirection as needed, Q 15 minute safety checks. Restraints/seclusion/emergency medication: N/A Justification of Continued Inpatient Treatment: Patient requires a safe and therapeutic milieu while waiting placement. Patient is LPS conserved. This appears to be patents baseline.
[2021-03-30] MEDS: haloperidol 5mg tablet PO PRN (18:18)
--- NOTE | 2021-03-30 18:20 | NUR ---
Pt. became increasingly agitated after dinner, yelling at pt.'s and falsely accusing peers of violence. Pt. given Ativan 1mg and Haldol 10mg po with moderate effect.
[2021-03-30 20:00] VITALS: BP 125/84
[2021-03-30] MEDS: haloperidol 5mg tablet PO SCH (20:31)
[2021-03-30] MEDS: temazepam 15mg capsule PO SCH (20:31)
[2021-03-30] MEDS: divalproex sodium 500mg tablet.DR PO SCH (20:31)
[2021-03-30] MEDS: acetaminophen 325mg tablet PO PRN (20:34)
--- NOTE | 2021-03-30 23:28 | NUR ---
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 Pt Public Guardian is Thuy Frost phone number #[phone]. Pt was at [place], and was becoming paranoid about his finances. It was found that $200 of his PNI money was unaccounted for and this escalated the patient. Pt began having outbursts of anger and became increasingly paranoid and delusional towards staff and peers Assessment What has happened this shift: The patient had received Ativan prior to change of shift and he did have a fairly good evening. He appeared more relaxed. He was more interactive with staff and peers. He was cooperative during the one to one nursing assessment. He stated that he does hear voices and then stated, "They're just monsters" He stated he was less bothered by them. He denies that they are command in nature. He has not had any behaviors that have required redirection. He is medication compliant. He stated that he feels his ear is improving. He is attending to his ADLs. He appears clean. He is not verbalizing any SI or HI. He has not had any aggressive or threatening behaviors. His insight and judgement are impaired. Justification of Continued Inpatient Treatment: The patient is waiting to be placed in an IMD.
[2021-03-31] MEDS: acetaminophen 325mg tablet PO PRN ×3 (01:26→21:26)
[2021-03-31 07:56] VITALS: BP 96/59
[2021-03-31] MEDS: atorvastatin 10mg tablet PO SCH (08:19)
[2021-03-31] MEDS: trihexyphenidyl HCL 5 MG tablet PO SCH ×3 (08:19→20:33)
[2021-03-31] MEDS: divalproex 250mg tablet, delayed-release PO SCH (08:19)
[2021-03-31] MEDS: pantoprazole 40mg Tablet.DR PO SCH (08:19)
[2021-03-31] MEDS: haloperidol 10mg/5ml UD oral solution PO SCH ×3 (08:20→17:42)
[2021-03-31] MEDS: neomy sulf/polymyx B sulf/HC 10ml otic suspension LEFT EAR SCH ×4 (09:14→20:33)
[2021-03-31] MEDS: NICOTINE POLACRILEX 2 MG LOZENGE BC PRN ×4 (10:02→21:25)
--- NOTE | 2021-03-31 14:31 | NUR ---
Pt. attended [facility] today. He was in a bright, pleasant mood. He sat next to his "sweetheart" as he referred to her (another Pt) and interacted appropriately with his peers. He shared his chocolate with his sweetheart and appeared to enjoy himself. PRIMO - Natasha Moe LCSW
--- NOTE | 2021-03-31 17:28 | NUR ---
Nursing Progress Note Legal hold: LPS Client on involuntary status for GD Report received from CAROLIN Harley with use of SBAR. 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 Pt Public Guardian is Thuy Frost phone number #[phone]. Pt was at [place], and was becoming paranoid about his finances. It was found that $200 of his PNI money was unaccounted for and this escalated the patient. Pt began having outbursts of anger and became increasingly paranoid and delusional towards staff and peers. Assessment What has happened this shift: Received patient sleeping at shift change, no distress noted. Pt. took all medications. Pt. ate all meals in community room. Pt. was pleasant in the AM and allowed physical and 1:1 assessments. Pt. reports +A/V hallucinations. States that he hears a voice calling his name and serial number and that this bothers him. Pt. also reports seeing a female monster outside his window. Pt. social with staff and in a festive mood, making jokes. Pt. did not have any conflicts with peers or staff. S/I, H/I: Denies A/VH: Denies Sleep: 6.5 hours per sleep report. No naps observed today. ADL's: Independent Group attendance: No Were meds taken: Yes Any med S/E: Denies Mental Status Exam Appearance: Clean and well kempt. Sports coat and jeans, hair pulled back into a ponytail. Eye contact: Good but intense at times. Behavior: Cooperative, calm, watching TV and conversing with staff and in a festive mood, making jokes. AM. Speech: Loud but otherwise WNL Mood: Euthymic Affect: Congruent with mood Thought process: Paranoid delusions. Thought Content: Circumstantial. Cognition: A&Ox3 not to situation Insight: Poor Judgment: Poor Interventions PRN's used: Nicotine lozenges Therapeutic interventions: Therapeutic conversation, active listening with positive feedback, medication administration/education/monitoring, behavior monitoring and intervention as needed; reality orientation, redirection as needed, Q 15 minute safety checks. Restraints/seclusion/emergency medication: N/A Justification of Continued Inpatient Treatment: Patient requires a safe and therapeutic milieu while waiting placement. Patient is LPS conserved. This appears to be patents baseline.
[2021-03-31] MEDS: olanzapine 10mg tablet PO SCH ×2 (17:42→20:33)
[2021-03-31 20:06] VITALS: BP 127/80
[2021-03-31] MEDS: haloperidol 5mg tablet PO SCH (20:33)
[2021-03-31] MEDS: temazepam 15mg capsule PO SCH (20:33)
[2021-03-31] MEDS: divalproex sodium 500mg tablet.DR PO SCH (20:33)
[2021-03-31] MEDS: LORazepam 1 MG tablet PO PRN ×3 (21:19→21:25)
--- NOTE | 2021-04-01 01:56 | NUR ---
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 Pt Public Guardian is Thuy Frost phone number #[phone]. Pt was at [place], and was becoming paranoid about his finances. It was found that $200 of his PNI money was unaccounted for and this escalated the patient. Pt began having outbursts of anger and became increasingly paranoid and delusional towards staff and peers. Assessment What has happened this shift: Pt was calm this evening, not talking as loud and his AH seemed to be quieter this evening as he is observed to be responding less frequently to internal stimuli. He is polite and kept mostly to his room this evening, stating he had a good day but feels tired. No outbursts this evening. S/I, H/I: Denies A/VH: Denies Sleep: See sleep hours ADL's: Independent Group attendance:Snack Were meds taken: Yes Any med S/E: None reported or observed Mental Status Exam Appearance: Wears his usual street clothes. Eye contact: Good Behavior: Cooperative, calm, watching TV but mostly stayed in his room looking out the window Speech: Clear, Coherent, delusional at times Mood: Euthymic Affect: Bright Thought process: Linear, occasional loose-associations Thought Content: Circumstantial Cognition: A&Ox3 (off for circumstance) Insight: Poor Judgment: Poor Interventions PRN's used: Ativan 1mg, Tylenol 650mg Therapeutic interventions: 1:1 assessment, therapeutic conversation, active listening, medication administration/education/monitoring, behavior monitoring and intervention as needed; reality orientation, limit setting, distraction, redirection, provided encouragement and positive reinforcement, Q 15 minute safety checks. Restraints/seclusion/emergency medication: N/A Justification of Continued Inpatient Treatment: Patient requires a safe and therapeutic milieu while waiting placement. Patient is LPS conserved. This appears to be patents baseline.
[2021-04-01 07:30] VITALS: BP 106/66
[2021-04-01] MEDS: pantoprazole 40mg Tablet.DR PO SCH (08:18)
[2021-04-01] MEDS: trihexyphenidyl HCL 5 MG tablet PO SCH ×3 (08:18→20:34)
[2021-04-01] MEDS: divalproex 250mg tablet, delayed-release PO SCH (08:18)
[2021-04-01] MEDS: atorvastatin 10mg tablet PO SCH (08:18)
[2021-04-01] MEDS: haloperidol 10mg/5ml UD oral solution PO SCH ×3 (08:20→17:31)
[2021-04-01] MEDS: NICOTINE POLACRILEX 2 MG LOZENGE BC PRN ×3 (08:33→18:27)
[2021-04-01] MEDS: neomy sulf/polymyx B sulf/HC 10ml otic suspension LEFT EAR SCH ×3 (09:50→20:33)
[2021-04-01] MEDS: haloperidol 5mg tablet PO PRN (15:42)
[2021-04-01] MEDS: LORazepam 1 MG tablet PO PRN (15:44)
--- NOTE | 2021-04-01 17:19 | NUR ---
Nursing Progress Note Legal hold: LPS Client on involuntary status for GD Report received from CAROLIN Arriaga with use of SBAR. 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 Pt Public Guardian is Thuy Frost phone number #[phone]. Pt was at [place], and was becoming paranoid about his finances. It was found that $200 of his PNI money was unaccounted for and this escalated the patient. Pt began having outbursts of anger and became increasingly paranoid and delusional towards staff and peers. Assessment What has happened this shift: Received patient sleeping at shift change, no distress noted. Pt. took all medications. Pt. ate all meals in community room. Pt. became upset after his linens were changed, stating, That took my sheets away! Pt. continued yelling louder but pt. was redirectable after this RN changed his sheets. Pt. allowed physical and 1:1 assessments in room. Pt. observed looking out window. Pt. reports + auditory hallucinations. Pt. states, The voices are just grumbling noises. Pt. reports he feels hopeful, states, Im looking forward to getting to smoke a cigarette someday. Pt. frequently asks for coffee. Pt. approached this RN in the afternoon stating, The paranoia is coming. RN asked pt. if he wanted a PRN and pt. received Ativan 2mg and Haldol 20mg po with good effect. Pt. observed watching TV in Rec Room and pacing hallway. S/I, H/I: Denies A/VH: Denies Sleep: 7 hours per sleep report. No naps observed today. ADL's: Independent Group attendance: No Were meds taken: Yes Any med S/E: Denies Mental Status Exam Appearance: Clean and well kempt. Elly black shirt and blue jeans. Eye contact: Good but intense Behavior: Cooperative but became agitated when his sheets were changed and started swearing loudly. Pt. watching TV and conversing with staff and peers. Speech: Loud but otherwise WNL Mood: Euthymic with breakthrough agitation. Affect: Congruent with mood Thought process: Paranoid delusions and hallucinations. Thought Content: Circumstantial. Cognition: A&Ox3 not to situation Insight: Poor Judgment: Poor Interventions PRN's used: Nicotine lozenges, Ativan 2mg and Haldol 10mg po x1 Therapeutic interventions: Therapeutic conversation, active listening with positive feedback, medication administration/education/monitoring, behavior monitoring and intervention as needed; reality orientation, redirection as needed, Q 15 minute safety checks. Restraints/seclusion/emergency medication: N/A Justification of Continued Inpatient Treatment: Patient requires a safe and therapeutic milieu while waiting placement. Patient is LPS conserved. This appears to be patents baseline.
[2021-04-01] MEDS: olanzapine 10mg tablet PO SCH ×2 (17:32→20:33)
[2021-04-01 20:20] VITALS: BP 113/69
[2021-04-01] MEDS: haloperidol 5mg tablet PO SCH (20:34)
[2021-04-01] MEDS: divalproex sodium 500mg tablet.DR PO SCH (20:34)
[2021-04-01] MEDS: temazepam 15mg capsule PO SCH (20:35)
[2021-04-01] MEDS: acetaminophen 325mg tablet PO PRN (22:29)
[2021-04-02] MEDS: LORazepam 1 MG tablet PO PRN ×3 (00:03→23:24)
--- NOTE | 2021-04-02 05:24 | NUR ---
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 Pt Public Guardian is Thuy Frost phone number #[phone]. Pt was at [place], and was becoming paranoid about his finances. It was found that $200 of his PNI money was unaccounted for and this escalated the patient. Pt began having outbursts of anger and became increasingly paranoid and delusional towards staff and peers. Assessment What has happened this shift: Pt in room most of shift, he looks more tired than usual but pt states he is "fine". He was observed to be responding to IS in his room this evening. He awoke after medication pass wanting to discuss his prostate and need for a prostate exam with a male coworker as he believes he has prostate problems; the RN attempted to get more history of symptoms but then pt stated "You are trying to pull the wool over my eyes! You don't know what you are talking about." This RN intervened and pt began pacing but would glare at the staff and say they were lying or trying to fool him if any attempt of conversation was made. Pt went back to his room for a bit then emerged requesting a snack and Ativan. S/I, H/I: Denies A/VH: Denies Sleep: See sleep hours ADL's: Independent Group attendance:Snack Were meds taken: Yes Any med S/E: None reported or observed Mental Status Exam Appearance: Wears his usual street clothes. Eye contact: Good Behavior: pt in room most of the evening Speech: Clear, Coherent, delusional at times Mood: "Fine" with agitation related to delusions Affect: Flat Thought process: Linear, occasional loose-associations, delusional Thought Content: Circumstantial Cognition: A&Ox3 (off for circumstance) Insight: Poor Judgment: Poor Interventions PRN's used: Ativan 1mg, Tylenol 650mg Therapeutic interventions: 1:1 assessment, therapeutic conversation, active listening, medication administration/education/monitoring, behavior monitoring and intervention as needed; reality orientation, limit setting, distraction, redirection, provided encouragement and positive reinforcement, Q 15 minute safety checks. Restraints/seclusion/emergency medication: N/A Justification of Continued Inpatient Treatment: Patient requires a safe and therapeutic milieu while waiting placement. Patient is LPS conserved. This appears to be patents baseline.
[2021-04-02 08:00] VITALS: BP 111/57
[2021-04-02] MEDS: trihexyphenidyl HCL 5 MG tablet PO SCH ×3 (08:01→20:32)
[2021-04-02] MEDS: haloperidol 10mg/5ml UD oral solution PO SCH ×3 (08:01→17:28)
[2021-04-02] MEDS: divalproex 250mg tablet, delayed-release PO SCH (08:01)
[2021-04-02] MEDS: atorvastatin 10mg tablet PO SCH (08:02)
[2021-04-02] MEDS: pantoprazole 40mg Tablet.DR PO SCH (08:02)
[2021-04-02] MEDS: neomy sulf/polymyx B sulf/HC 10ml otic suspension LEFT EAR SCH ×3 (09:00→20:32)
[2021-04-02] MEDS: NICOTINE POLACRILEX 2 MG LOZENGE BC PRN (13:39)
[2021-04-02] MEDS: haloperidol 5mg tablet PO PRN (15:42)
--- NOTE | 2021-04-02 16:27 | NUR ---
Nursing Progress Note Legal hold: LPS Client on involuntary status for GD Report received from CAROLIN Arriaga with use of SBAR. 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 Pt Public Guardian is Thuy Frost phone number #[phone]. Pt was at [place], and was becoming paranoid about his finances. It was found that $200 of his PNI money was unaccounted for and this escalated the patient. Pt began having outbursts of anger and became increasingly paranoid and delusional towards staff and peers. Assessment What has happened this shift: Pt asleep at change of shift, seen walking the halls around 7:30am. Pt. ate meals in community room. 1:1 done at bedside. Pt stated you dont like me, youre scared of me, Im dangerous. Nurse told pt. she does not feel as if he was a danger to her, pt. then smiled and agreed with nurse that he was not really dangerous. He stated they are pouring the Depakote on me hot and heavy, I dont mind it, theyre just big pills. Nurse asked pt. about his complaints of an enlarged prostate, pt. stated he just knows its enlarged, nurse asked if he was having difficulty urinating and pt. denied stating his bottom itches a lot at night. Pt. stated his urine is really light. Pt. could not elaborate on any symptoms. Pt became extremely agitated at approx. 1500 yelling in the recreational room due to snack not being on time. He was yelling I need a prostate exam! When nurse and charge nurse attempted to redirect pt. he became louder. PRN medications offered, pt. refused, repeating no submission. Approx. 5 minutes later Hardik approached nurse stating, I have prostate cancer, do you know how painful prostate cancer is, I need an exam but these doctors hands wont work. Pt. finally agreed to take PRN Haldol and Ativan at approx. 1543. S/I, H/I: Denies A/VH: Denies Sleep: 7.25 hours per sleep report. No naps observed today. ADL's: Independent, showered this shift. Group attendance: No groups this shift Were meds taken: Routine meds yes, refused offered PRNs but eventually agreed to take them. Any med S/E: Denies Mental Status Exam Appearance: Clean and well kempt Eye contact: Good but intense Behavior: Cooperative Speech: Loud but otherwise WNL Mood: Euthymic Affect: Congruent with mood Thought process: Paranoid delusions and hallucinations. Thought Content: Focused on getting a prostate exam Cognition: A&Ox3 not to situation Insight: Poor Judgment: Poor Interventions PRN's used: Ativan X1, Haldol X1 Therapeutic interventions: Therapeutic conversation, active listening with positive feedback, medication administration/education/monitoring, behavior monitoring and intervention as needed; reality orientation, redirection as needed, Q 15 minute safety checks. Restraints/seclusion/emergency medication: N/A Justification of Continued Inpatient Treatment: Patient requires a safe and therapeutic milieu while waiting placement. Patient is LPS conserved. This appears to be patents baseline.
[2021-04-02] MEDS: olanzapine 10mg tablet PO SCH ×2 (17:28→20:33)
[2021-04-02 20:09] VITALS: BP 97/72
[2021-04-02] MEDS: divalproex sodium 500mg tablet.DR PO SCH (20:33)
[2021-04-02] MEDS: temazepam 15mg capsule PO SCH (20:33)
[2021-04-02] MEDS: haloperidol 5mg tablet PO SCH (20:34)
--- NOTE | 2021-04-03 01:07 | NUR ---
Nursing Progress Note Legal hold: LPS Client on involuntary status for GD Report received from CAROLIN Eden with use of SBAR. 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 Pt Public Guardian is Thuy Frost phone number #[phone]. Pt was at [place], and was becoming paranoid about his finances. It was found that $200 of his PNI money was unaccounted for and this escalated the patient. Pt began having outbursts of anger and became increasingly paranoid and delusional towards staff and peers. Assessment What has happened this shift: Pt up on unit at change of shift, seen walking the halls . 1:1 done at bedside. Pt fell asleep before snack and was awakened for meds. pt fell back to sleep. Around mid night pt got up and asked for a prn for sleep he paced the phillips with his eyes closed and would run in to the wall. Pt redirected back to his room fell back to sleep. Pt gor up several times very groggy saying I cant stay asleep. S/I, H/I: Denies A/VH: Denies Sleep: See sleeep hrs. ADL's: Independent, showered this shift. Group attendance: No groups this shift Were meds taken: Routine meds yes, refused offered PRNs but eventually agreed to take them. Any med S/E: Denies Mental Status Exam Appearance: Clean and well kempt Eye contact: Good but intense Behavior: Cooperative Speech: Loud but otherwise WNL Mood: Euthymic Affect: Congruent with mood Thought process: Paranoid delusions and hallucinations. Thought Content: Focused on getting a prostate exam Cognition: A&Ox3 not to situation Insight: Poor Judgment: Poor Interventions PRN's used: Ativan X1, Haldol X1 Therapeutic interventions: Therapeutic conversation, active listening with positive feedback, medication administration/education/monitoring, behavior monitoring and intervention as needed; reality orientation, redirection as needed, Q 15 minute safety checks. Restraints/seclusion/emergency medication: N/A Justification of Continued Inpatient Treatment: Patient requires a safe and therapeutic milieu while waiting placement. Patient is LPS conserved. This appears to be patents baseline.
[2021-04-03 08:00] VITALS: BP 109/62
[2021-04-03] MEDS: pantoprazole 40mg Tablet.DR PO SCH (08:05)
[2021-04-03] MEDS: atorvastatin 10mg tablet PO SCH (08:05)
[2021-04-03] MEDS: divalproex 250mg tablet, delayed-release PO SCH (08:05)
[2021-04-03] MEDS: trihexyphenidyl HCL 5 MG tablet PO SCH ×3 (08:05→20:24)
[2021-04-03] MEDS: haloperidol 10mg/5ml UD oral solution PO SCH ×3 (08:06→17:28)
[2021-04-03] MEDS: neomy sulf/polymyx B sulf/HC 10ml otic suspension LEFT EAR SCH ×3 (09:00→20:27)
[2021-04-03] MEDS: NICOTINE POLACRILEX 2 MG LOZENGE BC PRN ×2 (12:10→14:35)
--- NOTE | 2021-04-03 13:27 | NUR ---
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 Pt Public Guardian is Thuy Frost phone number #[phone]. Pt was at [place], and was becoming paranoid about his finances. It was found that $200 of his PNI money was unaccounted for and this escalated the patient. Pt began having outbursts of anger and became increasingly paranoid and delusional towards staff and peers. Assessment What has happened this shift: Received pt sleeping w/o distress at the beginning of the shift. Pt cooperative with vitals and returned to sleep. Pt woke for breakfast and was cooperative with AM meds and morning assessments. Pt listened to music and spent time looking out the window. Pt became iraional stating you opened my mail and violated my rights. Attempts made to inform him that mail has not yet come, but pt continued to be angry and loud with staff, go into a boxing ring with me. Pt able to calm after talking with Kamaljit SHETTY and took afternoon Meds and asked for Arie George as well. Pt apologized to this senior grant writer and ate lunch and was complimantary of the food. S/I, H/I: Denies A/VH: Denies Sleep: Awake this shift ADL's: Independent Group attendance: No Were meds taken: Yes Any med S/E: Denies Mental Status Exam Appearance: Casual in own clothes Eye contact: Good Behavior: Cooperative, with outbursts of anger and paranoia Speech: Coherent, delusional at times Mood: Euthymic mostly Affect: Calm, when not having angry outburst Thought process: Linear Thought Content: Circumstantial Cognition: A&Ox3 not to situation Insight: Poor Judgment: Poor Interventions PRN's used: Therapeutic interventions: 1:1 assessment, therapeutic conversation, active listening, medication administration/education/monitoring, behavior monitoring and intervention as needed; reality orientation, limit setting, distraction, redirection, provided encouragement and positive reinforcement, Q 15 minute safety checks. Restraints/seclusion/emergency medication: N/A Justification of Continued Inpatient Treatment: Patient requires a safe and therapeutic milieu while waiting placement. Patient is LPS conserved. This appears to be patents baseline.
--- NOTE | 2021-04-03 14:35 | NUR ---
Pt attended today's group. The group was about Core Beliefs and how depending on what lenses we have on (positive core belief vs. negative core beliefs) we interpret our experiences through these lenses. Patients were asked to share one or two of their negative core beliefs so that we could process these beliefs together as a group to help them see what the opposite could be. These positive core beliefs were the reinforced by them having to write them on a piece of paper and apply the paper/lens to sunglasses that were given to each pt. so they could leave with a new positive belief/lens. Pt stated when this Bridge Contractor saw him at the beginning of group, "I am not in such a great mood today". He stayed for group and tended to interject his thoughts when others were talking. About fifteen minutes into the group he got up left the group. He returned just as the group was ending and sat at the back quietly. This Bridge Contractor observed delusional content. Natasha Moe, SALES AND MARKETING VICE PRESIDENT
[2021-04-03] MEDS: olanzapine 10mg tablet PO SCH ×2 (17:27→20:24)
[2021-04-03] MEDS: temazepam 15mg capsule PO SCH (20:24)
[2021-04-03] MEDS: divalproex sodium 500mg tablet.DR PO SCH (20:25)
[2021-04-03] MEDS: haloperidol 5mg tablet PO SCH (20:27)
[2021-04-03 20:40] VITALS: BP 129/85
--- NOTE | 2021-04-04 00:55 | NUR ---
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 Pt Public Guardian is Thuy Frost phone number #[phone]. Pt was at [place], and was becoming paranoid about his finances. It was found that $200 of his PNI money was unaccounted for and this escalated the patient. Pt began having outbursts of anger and became increasingly paranoid and delusional towards staff and peers. Assessment What has happened this shift: Received pt in rec room at the beginning of the shift. Pt cooperative with vitals and returned to stayed in rec room. . Pt became irrational shouting at a peer about her not needing to be here.Pt was redirected and went to his room. Pt was med compliant. S/I, H/I: Denies A/VH: Denies Sleep: See sleep hrs. ADL's: Independent Group attendance: No Were meds taken: Yes Any med S/E: Denies Mental Status Exam Appearance: Casual in own clothes Eye contact: Good Behavior: Cooperative, with outbursts of anger and paranoia Speech: Coherent, delusional at times Mood: Euthymic mostly Affect: Calm, when not having angry outburst Thought process: Linear Thought Content: Circumstantial Cognition: A&Ox3 not to situation Insight: Poor Judgment: Poor Interventions PRN's used: Therapeutic interventions: 1:1 assessment, therapeutic conversation, active listening, medication administration/education/monitoring, behavior monitoring and intervention as needed; reality orientation, limit setting, distraction, redirection, provided encouragement and positive reinforcement, Q 15 minute safety checks. Restraints/seclusion/emergency medication: N/A Justification of Continued Inpatient Treatment: Patient requires a safe and therapeutic milieu while waiting placement. Patient is LPS conserved. This appears to be patents baseline.
[2021-04-04] MEDS: haloperidol 10mg/5ml UD oral solution PO SCH ×3 (07:44→17:25)
[2021-04-04] MEDS: divalproex 250mg tablet, delayed-release PO SCH (07:44)
[2021-04-04] MEDS: trihexyphenidyl HCL 5 MG tablet PO SCH ×3 (07:44→20:26)
[2021-04-04] MEDS: atorvastatin 10mg tablet PO SCH (07:45)
[2021-04-04] MEDS: neomy sulf/polymyx B sulf/HC 10ml otic suspension LEFT EAR SCH ×3 (07:45→20:44)
[2021-04-04] MEDS: pantoprazole 40mg Tablet.DR PO SCH (07:45)
[2021-04-04 07:56] VITALS: BP 105/65
[2021-04-04] MEDS: LORazepam 1 MG tablet PO PRN (09:52)
[2021-04-04] MEDS: NICOTINE POLACRILEX 2 MG LOZENGE BC PRN ×2 (10:52→14:08)
--- NOTE | 2021-04-04 14:16 | NUR ---
Pt. attended group today. Todays group was about the importance of setting goals to improve the quality of our lives. Each pt. was asked to set a realistic goal that they would like to reach in 7 months. 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 Pt. appeared to get a bit frustrated at times and would aim his frustration at this Scheduling Assistant. His thought content contained delusional content mixed in with concrete, he struggled to contain his thoughts today and often would talk over others while they spoke. This Scheduling Assistant had to remind him a few times that we needed to be respectful in group of others when they are speaking. He usually allows this Scheduling Assistant to redirect him, but today he had a hard time following those prompts and maintaining his composure. By the end of the group, when we did a Mindfulness exercise he began to settle into a more calm and compliant state. Natasha Moe, JUVE
--- NOTE | 2021-04-04 17:13 | NUR ---
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 Pt Public Guardian is Thuy Frost phone number #[phone]. Pt was at [place], and was becoming paranoid about his finances. It was found that $200 of his PNI money was unaccounted for and this escalated the patient. Pt began having outbursts of anger and became increasingly paranoid and delusional towards staff and peers. Assessment What has happened this shift: Received pt. sleeping in bed at shift change. Pt. is cooperative with morning medications. Patient ate breakfast in the community room and was appropriately socializing with his peers. Later in the morning, patient came to RN and informed her that he is having cog wheeling behind his eyes. Ativan given with good relief. Patient went on a rant stating that it starts with the cog wheeling, then turns into motion sickness and then it turns into space sickness. Patient reports that he has to take care of his little brother. Patient told a story involving his little brother. He states that his family is royalty. This afternoon, patient reported that he is hearing a males voice, who agrees with him, and considers him a friend. Patient was told to talk to DIOGENES Brooke. S/I, H/I: Denies A/VH: + A/H. Sleep: 7.75 hours at [facility]. ADL's: Independent Group attendance: No Were meds taken: Yes Any med S/E: Denies Mental Status Exam Appearance: Tall male with ignacio blonde hair in personal attire. Eye contact: Good Behavior: Cooperative. Sits in chair by window in his room. Speech: Patient has a drawl when he speaks, otherwise WNL. Mood: Euthymic Affect: Blunted. Thought process: Linear Thought Content: Delusional. Cognition: A&Ox3 not to situation Insight: Poor Judgment: Poor Interventions PRN's used: Ativan Therapeutic interventions: 1:1 assessment, therapeutic conversation, active listening, medication administration/education/monitoring, behavior monitoring and intervention as needed; reality orientation, limit setting, distraction, redirection, provided encouragement and positive reinforcement, Q 15 minute safety checks. Restraints/seclusion/emergency medication: N/A Justification of Continued Inpatient Treatment: Patient requires a safe and therapeutic milieu while waiting placement. Patient is LPS conserved. This appears to be patents baseline.
[2021-04-04] MEDS: olanzapine 10mg tablet PO SCH ×2 (17:25→20:24)
[2021-04-04] MEDS: temazepam 15mg capsule PO SCH (20:25)
[2021-04-04] MEDS: haloperidol 5mg tablet PO SCH (20:26)
[2021-04-04 20:53] VITALS: BP 140/88
[2021-04-04] MEDS: divalproex sodium 500mg tablet.DR PO SCH (21:32)
--- NOTE | 2021-04-05 01:15 | NUR ---
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 Pt Public Guardian is Thuy Frost phone number #[phone]. Pt was at [place], and was becoming paranoid about his finances. It was found that $200 of his PNI money was unaccounted for and this escalated the patient. Pt began having outbursts of anger and became increasingly paranoid and delusional towards staff and peers. Assessment What has happened this shift: Received pt. up on unit at shift change. Pt. is cooperative and kept to him self.. Patient ate snack in the community room and became irritated when a peer yelled at him about sitting in his chair. Pt handeled it well but became loud and agitated when another peer argued with him. Pt calmed and was med compliant. S/I, H/I: Denies A/VH: + A/H. Sleep: See sleep hrs. ADL's: Independent Group attendance: No Were meds taken: Yes Any med S/E: Denies Mental Status Exam Appearance: Tall male with ignacio blonde hair in personal attire. Eye contact: Good Behavior: Cooperative. Sits in chair by window in his room. Speech: Patient has a drawl when he speaks, otherwise WNL. Mood: Euthymic Affect: Blunted. Thought process: Linear Thought Content: Delusional. Cognition: A&Ox3 not to situation Insight: Poor Judgment: Poor Interventions PRN's used: Ativan Therapeutic interventions: 1:1 assessment, therapeutic conversation, active listening, medication administration/education/monitoring, behavior monitoring and intervention as needed; reality orientation, limit setting, distraction, redirection, provided encouragement and positive reinforcement, Q 15 minute safety checks. Restraints/seclusion/emergency medication: N/A Justification of Continued Inpatient Treatment: Patient requires a safe and therapeutic milieu while waiting placement. Patient is LPS conserved. This appears to be patents baseline.
[2021-04-05] MEDS: haloperidol 10mg/5ml UD oral solution PO SCH ×3 (07:28→17:59)
[2021-04-05] MEDS: divalproex 250mg tablet, delayed-release PO SCH (07:28)
[2021-04-05] MEDS: trihexyphenidyl HCL 5 MG tablet PO SCH ×3 (07:28→19:47)
[2021-04-05] MEDS: atorvastatin 10mg tablet PO SCH (07:29)
[2021-04-05] MEDS: pantoprazole 40mg Tablet.DR PO SCH (07:29)
[2021-04-05 08:00] VITALS: BP 110/66
[2021-04-05] MEDS: neomy sulf/polymyx B sulf/HC 10ml otic suspension LEFT EAR SCH ×3 (09:00→21:00)
[2021-04-05] MEDS: NICOTINE POLACRILEX 2 MG LOZENGE BC PRN (09:05)
--- NOTE | 2021-04-05 11:17 | NUR ---
Reassessment: Pt continues eating well with mostly 100% PO intake. [facility] 04/04. No nutrition intervention implemented at this time. Will continue to follow. Recommend: 1. Continue regular diet 2. Bowel care as needed 3. Weekly scaled weights Addendum: 04/05/21 at [address] Amended: Links added.
--- NOTE | 2021-04-05 14:40 | NUR ---
PLACEMENT Sent notes (03/21/21-04/04/21) to [facility] office for placement purposes. Leslie Rubi currently has his packet. LEXIE Squires
--- NOTE | 2021-04-05 16:41 | NUR ---
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 Pt Public Guardian is Thuy Frost phone number #[phone]. Pt was at [place], and was becoming paranoid about his finances. It was found that $200 of his PNI money was unaccounted for and this escalated the patient. Pt began having outbursts of anger and became increasingly paranoid and delusional towards staff and peers. Assessment What has happened this shift: Received pt sleeping in bed at shift change. Patient awakens before breakfast and readily takes his medications. Patient attends breakfast in the community room and is appropriate with his peers. Patient later is sitting in his chair looking out the window, talking to himself. Patient is hyperverbal today. Patient is wondering when he will be discharged to another facility, states he is okay with going south of here for placement. Reassurance given that placement will be found for him. ANAMIKA Kaur, had concerns about Hardik coming to group today, because he could not be contained yesterday, and had to constantly be redirected. Natasha had conversation with him about whether he thought he could maintain during group. Pt. elected not to go to group today. S/I, H/I: Denies A/VH: + A/H. Sleep: 8.75 hours at [facility]. ADL's: Independent Group attendance: No Were meds taken: Yes Any med S/E: Denies Mental Status Exam Appearance: Tall male with ignacio blonde hair in a pony tail dressed in pajama bottoms and white shirt. Eye contact: Good Behavior: Cooperative. Sits in chair by window in his room. Speech: Patient has a drawl when he speaks, hyperverbal in the a.m. Mood: Euthymic Affect: Blunted. Thought process: Linear Thought Content: Delusional. Cognition: A&Ox3 not to situation Insight: Poor Judgment: Poor Interventions PRN's used: Therapeutic interventions: 1:1 assessment, therapeutic conversation, active listening, medication administration/education/monitoring, behavior monitoring and intervention as needed; reality orientation, limit setting, distraction, redirection, provided encouragement and positive reinforcement, Q 15 minute safety checks. Restraints/seclusion/emergency medication: N/A Justification of Continued Inpatient Treatment: Patient requires a safe and therapeutic milieu while waiting placement. Patient is LPS conserved. This appears to be patents baseline.
[2021-04-05] MEDS: olanzapine 10mg tablet PO SCH ×2 (17:59→19:43)
[2021-04-05 19:26] VITALS: BP 122/94
[2021-04-05] MEDS: LORazepam 1 MG tablet PO PRN (19:43)
[2021-04-05] MEDS: haloperidol 5mg tablet PO SCH (19:44)
[2021-04-05] MEDS: temazepam 15mg capsule PO SCH (19:45)
[2021-04-05] MEDS: divalproex sodium 500mg tablet.DR PO SCH (19:47)
--- NOTE | 2021-04-05 22:16 | NUR ---
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 Pt Public Guardian is Thuy Frost phone number #[phone]. Pt was at [place], and was becoming paranoid about his finances. It was found that $200 of his PNI money was unaccounted for and this escalated the patient. Pt began having outbursts of anger and became increasingly paranoid and delusional towards staff and peers. Assessment What has happened this shift: Pt is walking the halls at shift change, talking to himself occasionally. He becomes increasingly agitated for an unknown reason, and speaks aggressively towards the charge nurse. Pt is given PRN ativan 2 mg. Pt states he is so upset because he is "discombobulated, my eyes have gone north and my spine has locked." Pt takes his HS medications without issue, property underwriter is standing and talking with him, then he spits one pill out and throws it on the floor. The pill was almost fully dissolved and this property underwriter was not able to ID which medication it was. S/I, H/I: Denies A/VH: + A/H. Sleep: See sleep hrs. ADL's: Independent Group attendance: No Were meds taken: Yes Any med S/E: Denies Mental Status Exam Appearance: WNL Eye contact: Good Behavior: loud, upset Speech: Patient has a drawl when he speaks, otherwise WNL. Mood:upset Affect: agitated Thought process: delusional Thought Content: Delusional. Cognition: A&Ox3 not to situation Insight: Poor Judgment: Poor Interventions PRN's used: Ativan Therapeutic interventions: 1:1 assessment, therapeutic conversation, active listening, medication administration/education/monitoring, behavior monitoring and intervention as needed; reality orientation, limit setting, distraction, redirection, provided encouragement and positive reinforcement, Q 15 minute safety checks. Restraints/seclusion/emergency medication: N/A Justification of Continued Inpatient Treatment: Patient requires a safe and therapeutic milieu while waiting placement. Patient is LPS conserved. This appears to be patents baseline.
[2021-04-06] MEDS: atorvastatin 10mg tablet PO SCH (07:47)
[2021-04-06] MEDS: pantoprazole 40mg Tablet.DR PO SCH (07:47)
[2021-04-06] MEDS: trihexyphenidyl HCL 5 MG tablet PO SCH ×3 (07:47→20:20)
[2021-04-06] MEDS: haloperidol 10mg/5ml UD oral solution PO SCH ×3 (07:47→17:01)
[2021-04-06] MEDS: divalproex 250mg tablet, delayed-release PO SCH (07:47)
[2021-04-06 08:26] VITALS: BP 84/49
[2021-04-06] MEDS: neomy sulf/polymyx B sulf/HC 10ml otic suspension LEFT EAR SCH ×2 (08:33→09:00)
[2021-04-06] MEDS: NICOTINE POLACRILEX 2 MG LOZENGE BC PRN ×2 (08:45→14:57)
[2021-04-06] MEDS: LORazepam 1 MG tablet PO PRN (10:50)
--- NOTE | 2021-04-06 14:13 | NUR ---
Pt. attended group today. Todays group was about learning ways to catch our unhealthy thinking. We then discussed unhealthy thoughts and how we can change them into more positive forward moving thoughts. We also did a breathing exercise at the beginning. Pt. was appropriately engaged today in the discussion and activity. He did a great job of not talking over others when they were speaking. He provided interesting and valid comments today related to the topic we were discussing, there were a few times his thought content would veer into loose associations but he was amenable to redirection. He appeared to be in a good mood joking around at times and enjoying humor. He was calm pleasant to work with. Natasha Moe LCSW
--- NOTE | 2021-04-06 14:58 | NUR ---
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 Pt Public Guardian is Thuy Frost phone number #[phone]. Pt was at [place], and was becoming paranoid about his finances. It was found that $200 of his PNI money was unaccounted for and this escalated the patient. Pt began having outbursts of anger and became increasingly paranoid and delusional towards staff and peers. Assessment What has happened this shift: Pt slept this morning until called for breakfast. Pt refused his Cortisporin ear drops. Pt politely declined stating, "no, it just drains down inside my body and makes it feel really queer." Pt has refused ear drops X 2 days. Ear drops were started on 03/23/21, ear drops D/c'd today. Observed pt responding to internal stimuli talking to himself in his room. Pt approached this RN in the charting room, he lowered his dark blue cloth face mask and whispered to ask for an Ativan. PRN Ativan 1 mg given at 1050 with good effect. Pt was pleasant and cooperative today, pt successfully attended group. Pt again approached this nurse to ask for another Ativan at 1450, let him know that it was too soon as the order is for Q6H PRN. Offered pt a nicotine lozenge instead, pt accepted. Asked pt what was going on, what was he anxious about. Pt answered, "I'm just getting nervous about the trip...I don't want to go to [place] or [place], I don't want to stay here." Offered encouragement and positive reinforcement. Pt continues to wish to be discharged to [place]. S/I, H/I: Pt denies. A/VH: Pt denies though is observed talking to himself responding to internal stimuli in his room. Sleep: Pt slept 8.5 hours last night per noc shift report. ADL's: Independent Group attendance: Yes Were meds taken: Yes Any med S/E: None noted or reported. Mental Status Exam Appearance: Tall male with greying light brown hair that has grown out to shoulder length dressed in jeans, a sports jacket and a baseball cap wearing glasses and a blue face mask. Eye contact: Good Behavior: Pleasant, cooperative, socializes with select peers in the rec room, watches TV, sits in chair in room staring out the window talking to himself. Speech: Clear, loud, slow, speaks in a drawl that he states is a [facility] accent. Mood: Anxious. Affect: Congruent. Thought process: Delusional, internally preoccupied at times. Thought Content: He is worried about where he will be discharged. Cognition: A/O X 3 Insight: Poor Judgment: Fair Interventions PRN's used: Ativan 1 mg, nicotine lozenges. Therapeutic interventions: 1:1 assessment, therapeutic conversation, active listening, medication administration/education/monitoring, behavior monitoring and intervention as needed; reality orientation, limit setting, distraction, redirection, provided encouragement and positive reinforcement, Q 15 minute safety checks. Restraints/seclusion/emergency medication: N/A Justification of Continued Inpatient Treatment: Patient requires a safe and therapeutic milieu while waiting placement. Patient is LPS conserved. This appears to be patents baseline.
[2021-04-06] MEDS: olanzapine 10mg tablet PO SCH ×2 (17:01→20:20)
[2021-04-06 19:53] VITALS: BP 132/84
[2021-04-06] MEDS: haloperidol 5mg tablet PO SCH (20:20)
[2021-04-06] MEDS: divalproex sodium 500mg tablet.DR PO SCH (20:20)
[2021-04-06] MEDS: temazepam 15mg capsule PO SCH (20:20)
--- NOTE | 2021-04-06 21:22 | NUR ---
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 Pt Public Guardian is Thuy Frost phone number #[phone]. Pt was at [place], and was becoming paranoid about his finances. It was found that $200 of his PNI money was unaccounted for and this escalated the patient. Pt began having outbursts of anger and became increasingly paranoid and delusional towards staff and peers. Assessment What has happened this shift: Drafting Technician asks pt Whats up? He responds, Thats a good question. I was really discombobulated last night, what I need to do is sit up straight in my bed and swallow my pills, that is why I spit that one pill out last night. Pt is in a jovial mood wearing pajama bottoms and a sports coat. He eats snack and takes his HS medications without any issue tonight and lays down for bed. S/I, H/I: Denies A/VH: pt does respond to internal stimuli Sleep: See sleep hrs. ADL's: Independent Group attendance: No Were meds taken: Yes Any med S/E: Denies Mental Status Exam Appearance: WNL Eye contact: Good Behavior: calm Speech: Patient has a drawl when he speaks, otherwise WNL. Mood:upset Affect: jovial Thought process: delusional Thought Content: Delusional. Cognition: A&Ox3 not to situation Insight: Poor Judgment: Poor Interventions PRN's used: none Therapeutic interventions: 1:1 assessment, therapeutic conversation, active listening, medication administration/education/monitoring, behavior monitoring and intervention as needed; reality orientation, limit setting, distraction, redirection, provided encouragement and positive reinforcement, Q 15 minute safety checks. Restraints/seclusion/emergency medication: N/A Justification of Continued Inpatient Treatment: Patient requires a safe and therapeutic milieu while waiting placement. Patient is LPS conserved. This appears to be patents baseline.
[2021-04-07 07:53] VITALS: BP 104/64
[2021-04-07] MEDS: atorvastatin 10mg tablet PO SCH (07:55)
[2021-04-07] MEDS: pantoprazole 40mg Tablet.DR PO SCH (07:55)
[2021-04-07] MEDS: trihexyphenidyl HCL 5 MG tablet PO SCH ×3 (07:55→20:20)
[2021-04-07] MEDS: haloperidol 10mg/5ml UD oral solution PO SCH ×3 (07:56→17:00)
[2021-04-07] MEDS: divalproex 250mg tablet, delayed-release PO SCH (07:56)
[2021-04-07] MEDS: NICOTINE POLACRILEX 2 MG LOZENGE BC PRN (08:54)
[2021-04-07] MEDS: LORazepam 1 MG tablet PO PRN ×2 (09:33→22:31)
--- NOTE | 2021-04-07 13:22 | NUR ---
Pt attended the group today. Today's group is the final one in the series of learning how to change thoughts from unhelpful to helpful. Patients engaged in some exercises to continue to practice this concept. Pt. was engaged, he tended to veer into loose associations for the most part. His seemed to struggle with the instructions today about what he was meant to do for the activity. He was able to control himself from speaking over others today for the most part. He appeared to be in a good mood. Natasha Moe LCSW
--- NOTE | 2021-04-07 14:03 | NUR ---
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 Pt Public Guardian is Thuy Frost phone number #[phone]. Pt was at [place], and was becoming paranoid about his finances. It was found that $200 of his PNI money was unaccounted for and this escalated the patient. Pt began having outbursts of anger and became increasingly paranoid and delusional towards staff and peers. Assessment What has happened this shift: Pt was up before breakfast and cooperative with medications. Pt approached this nurse to request a PRN Ativan after breakfast. He was given Ativan 1 mg at 0957 with good effect. Pt thanked this RN, "thanks, you're a sweetheart" (said in an appropriate, non offensive kind of way.) Pt socialized quite a bit with some female peers in the rec room today. Pt makes bizarre, sometimes grandiose, usually interesting delusional statements. [place] pt discussing conservatorship with female peers. "Dr Parks hates everybody...he advocates for [facility] and [facility], he conserves everybody, he thinks we're not paying our taxes." A female peer asked him if he thinks he'll ever get off of conservatorship, pt replied, "no, I'm to old, I don't care." Another female peer remarked that he is smart. 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 Pt had an altercation with a male peer in the rec room which was mostly initiated by the male peer. The male peer had placed magazines and other items on one of the benches in the rec room to save his seat while he left the room. Hardik came in afterwards, moved the items over and sat down. The male peer returned and began accusing and arguing with Hardik about taking his seat. Hardik handled the altercation well and responded to direction of staff in de-escalating the altercation. S/I, H/I: Pt denies. A/VH: Pt denies. Sleep: Pt slept 8.5 hours last night per noc shift report. ADL's: Independent Group attendance: Yes Were meds taken: Yes Any med S/E: None noted or reported. Mental Status Exam Appearance: Tall male with greying light brown hair that has grown out to shoulder length dressed in jeans, a long sleeved, collared purple shirt, and a baseball cap wearing glasses and a blue face mask. Eye contact: Good Behavior: Pleasant, cooperative, socializes with peers in the rec room, watches TV, participates in groups and unit activities. Speech: Clear, loud, slow, speaks in a drawl that he states is a [facility] accent. Mood: Anxious Affect: Mostly calm, animated at times with intermittent anxiety. Thought process: Fairly organized with delusions. Thought Content: He is too old to ever come off of conservatorship. Cognition: A/O X 3 Insight: Poor Judgment: Fair Interventions PRN's used: Ativan 1 mg, nicotine lozenges. Therapeutic interventions: 1:1 assessment, therapeutic conversation, active listening, medication administration/education/monitoring, behavior monitoring and intervention as needed; reality orientation, limit setting, distraction, redirection, provided encouragement and positive reinforcement, Q 15 minute safety checks. Restraints/seclusion/emergency medication: N/A Justification of Continued Inpatient Treatment: Patient requires a safe and therapeutic milieu while waiting placement. Patient is LPS conserved. This appears to be patents baseline.
[2021-04-07] MEDS: olanzapine 10mg tablet PO SCH ×2 (17:00→20:20)
[2021-04-07 19:43] VITALS: BP 134/84
[2021-04-07] MEDS: haloperidol 5mg tablet PO SCH (20:20)
[2021-04-07] MEDS: divalproex sodium 500mg tablet.DR PO SCH (20:21)
[2021-04-07] MEDS: temazepam 15mg capsule PO SCH (20:22)
--- NOTE | 2021-04-07 21:45 | NUR ---
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 Pt Public Guardian is Thuy Frost phone number #[phone]. Pt was at [place], and was becoming paranoid about his finances. It was found that $200 of his PNI money was unaccounted for and this escalated the patient. Pt began having outbursts of anger and became increasingly paranoid and delusional towards staff and peers. Assessment What has happened this shift: Pt isolates to his room most of the shift and is quiet. He is observed laying in bed looking out towards the window. Pt is cooperative with 1:1 assessment and medication compliant. He appears to be tired, and falls asleep soon after HS medications are given. S/I, H/I: Denies A/VH: pt does respond to internal stimuli Sleep: See sleep hrs. ADL's: Independent Group attendance: No Were meds taken: Yes Any med S/E: Denies Mental Status Exam Appearance: WNL Eye contact: Good Behavior: calm Speech: Patient has a drawl when he speaks, otherwise WNL. Mood:upset Affect: jovial Thought process: delusional Thought Content: Delusional. Cognition: A&Ox3 not to situation Insight: Poor Judgment: Poor Interventions PRN's used: none Therapeutic interventions: 1:1 assessment, therapeutic conversation, active listening, medication administration/education/monitoring, behavior monitoring and intervention as needed; reality orientation, limit setting, distraction, redirection, provided encouragement and positive reinforcement, Q 15 minute safety checks. Restraints/seclusion/emergency medication: N/A Justification of Continued Inpatient Treatment: Patient requires a safe and therapeutic milieu while waiting placement. Patient is LPS conserved. This appears to be patents baseline.
[2021-04-07] MEDS: acetaminophen 325mg tablet PO PRN (22:31)
[2021-04-08 07:45] VITALS: BP 111/75
[2021-04-08] MEDS: haloperidol 10mg/5ml UD oral solution PO SCH ×3 (07:50→17:43)
[2021-04-08] MEDS: atorvastatin 10mg tablet PO SCH (07:50)
[2021-04-08] MEDS: trihexyphenidyl HCL 5 MG tablet PO SCH ×3 (07:50→20:20)
[2021-04-08] MEDS: pantoprazole 40mg Tablet.DR PO SCH (07:50)
[2021-04-08] MEDS: divalproex 250mg tablet, delayed-release PO SCH (07:50)
[2021-04-08] MEDS: NICOTINE POLACRILEX 2 MG LOZENGE BC PRN ×3 (09:19→20:22)
[2021-04-08] MEDS: LORazepam 1 MG tablet PO PRN ×2 (09:33→23:29)
--- NOTE | 2021-04-08 13:21 | NUR ---
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 Pt Public Guardian is Thuy Frost phone number #[phone]. Pt was at [place], and was becoming paranoid about his finances. It was found that $200 of his PNI money was unaccounted for and this escalated the patient. Pt began having outbursts of anger and became increasingly paranoid and delusional towards staff and peers. Assessment What has happened this shift: Pt was up before breakfast stating he was feeling tired. After breakfast he asked for a nicotine lozenge. Pt approached this nurse and asked, "Samy, can I have an Ativan? I'm feeling anxious...everything is just plain stupid." Pt was medicated with PRN Ativan 1 mg at 0933 with good effect. Pt no longer appeared tired. Pt is focused on being discharged. Pt gets anxious when wondering where he will be sent. Pt asked if when he leaves will all of his meds be sent with him. Pt was concerned about continuing to get his liquid Haldol in particular. Pt stated that the liquid Haldol works better, "it hits the back of the throat and makes the thyroid work better." Pt as an afterthought added, "actually, it hits up here." (Pt pointed to his head.) Pt stated, "you know, I kind of want to go to [place], they have a really nice berry...do you think they'd let me go to it?" S/I, H/I: Pt denies. A/VH: Pt denies. Sleep: Pt slept 8.25 hours last night per noc shift report. ADL's: Independent Group attendance: No group today Were meds taken: Yes Any med S/E: None noted or reported. Mental Status Exam Appearance: Tall male with greying light brown hair that has grown out to shoulder length dressed in jeans, a light lama sweatshirt, glasses and a blue face mask. Eye contact: Good Behavior: Pleasant, cooperative, socializes with peers in the rec room, watches TV, participates in groups and unit activities. Speech: Clear, loud, slow, speaks in a drawl that he states is a [employer] [place] accent. Mood: Anxious Affect: Mostly calm, animated at times with intermittent anxiety. Thought process: Perseverative, ruminative, delusional though oriented and organized. Thought Content: Anxious/worried about which IMD he will be sent to. Cognition: A/O X 4 Insight: Fair Judgment: Fair Interventions PRN's used: Ativan 1 mg, nicotine lozenges. Therapeutic interventions: 1:1 assessment, therapeutic conversation, active listening, medication administration/education/monitoring, behavior monitoring and intervention as needed; reality orientation, limit setting, distraction, redirection, provided encouragement and positive reinforcement, Q 15 minute safety checks. Restraints/seclusion/emergency medication: N/A Justification of Continued Inpatient Treatment: Patient requires a safe and therapeutic milieu while waiting placement. Patient is LPS conserved. This appears to be patents baseline.
[2021-04-08] MEDS: olanzapine 10mg tablet PO SCH ×2 (17:43→20:21)
[2021-04-08 19:00] VITALS: BP 110/81
[2021-04-08] MEDS: divalproex sodium 500mg tablet.DR PO SCH (20:20)
[2021-04-08] MEDS: haloperidol 5mg tablet PO SCH (20:21)
[2021-04-08] MEDS: temazepam 15mg capsule PO SCH (20:21)
[2021-04-08] MEDS: acetaminophen 325mg tablet PO PRN (23:04)
--- NOTE | 2021-04-08 23:34 | NUR ---
Pt was pacing the hallway and requested ativan.
--- NOTE | 2021-04-08 23:50 | NUR ---
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 Pt Public Guardian is Thuy Frost phone number #[phone]. Pt was at [place], and was becoming paranoid about his finances. It was found that $200 of his PNI money was unaccounted for and this escalated the patient. Pt began having outbursts of anger and became increasingly paranoid and delusional towards staff and peers. Assessment What has happened this shift: Pt isolates to his room most of the shift and is quiet. He is observed laying in bed looking out towards the window. He was up once requesting Tylenol for hip pain. He was up a second time pacing the hallway. When asked if he was ok, he requested Ativan for anxiety. Pt is cooperative with medication administration. He appears to be tired, and falls asleep soon after PRN medications are given. S/I, H/I: Pt denies. A/VH: Pt denies. Sleep: See sleep hours. ADL's: Independent Group attendance: No group today Were meds taken: Yes Any med S/E: None noted or reported. Mental Status Exam Appearance: Tall male with ignacio blonde hair in personal attire. Eye contact: Good Behavior: Cooperative. Sits in chair by window in his room. Speech: Patient has a drawl when he speaks, otherwise WNL. Mood: Euthymic Affect: Blunted. Thought process: Linear Thought Content: Delusional. Cognition: A&Ox4 Insight: Fair Judgment: Fair Interventions PRN's used: Ativan 1 mg, Tylenol 650mg for pain. Therapeutic interventions: 1:1 assessment, therapeutic conversation, active listening, medication administration/education/monitoring, behavior monitoring and intervention as needed; reality orientation, limit setting, distraction, redirection, provided encouragement and positive reinforcement, Q 15 minute safety checks. Restraints/seclusion/emergency medication: N/A Justification of Continued Inpatient Treatment: Patient requires a safe and therapeutic milieu while waiting placement. Patient is LPS conserved. This appears to be patents baseline.
[2021-04-09] MEDS: trihexyphenidyl HCL 5 MG tablet PO SCH ×3 (07:43→20:05)
[2021-04-09] MEDS: divalproex 250mg tablet, delayed-release PO SCH (07:43)
[2021-04-09] MEDS: atorvastatin 10mg tablet PO SCH (07:44)
[2021-04-09] MEDS: haloperidol 10mg/5ml UD oral solution PO SCH ×3 (07:44→17:19)
[2021-04-09] MEDS: pantoprazole 40mg Tablet.DR PO SCH (07:44)
[2021-04-09] MEDS: NICOTINE POLACRILEX 2 MG LOZENGE BC PRN ×4 (07:49→17:19)
[2021-04-09 08:08] VITALS: BP 96/58
[2021-04-09] MEDS: acetaminophen 325mg tablet PO PRN (10:36)
[2021-04-09] MEDS: naproxen sodium 220mg tablet PO PRN ×2 (14:36→20:05)
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
[2021-04-09] MEDS: LORazepam 1 MG tablet PO PRN (15:57)
[2021-04-09] MEDS: haloperidol 5mg tablet PO PRN (15:58)
[2021-04-09] MEDS: olanzapine 10mg tablet PO SCH ×2 (17:19→20:05)
[2021-04-09 19:50] VITALS: BP 121/74
[2021-04-09] MEDS: temazepam 15mg capsule PO SCH (20:05)
[2021-04-09] MEDS: haloperidol 5mg tablet PO SCH (20:06)
[2021-04-09] MEDS: divalproex sodium 500mg tablet.DR PO SCH (20:06)
--- NOTE | 2021-04-10 00:17 | NUR ---
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 Pt Public Guardian is Thuy Frost phone number #[phone]. Pt was at [place], and was becoming paranoid about his finances. It was found that $200 of his PNI money was unaccounted for and this escalated the patient. Pt began having outbursts of anger and became increasingly paranoid and delusional towards staff and peers. Assessment What has happened this shift: The patient spent most of the evening going from his room to either the community room or rec room to watch tv. He rarely stays for very long and goes to lie down or sit looking out the window. He has been calm and cooperative tonight, no delusional content voiced. He requested Aleve early in the evening, with good results. Patient says it works better than Tylenol. He had a snack, took HS meds, then went to bed. S/I, H/I: Denies. A/VH: Denies. Sleep: See sleep assessment. ADL's: Independent Group attendance: No group today Were meds taken: Yes Any med S/E: None reported or observed. Mental Status Exam Appearance: Tall male with messy dark hair, wearing proper personal clothing. Eye contact: Good Behavior: Cooperative, isolative, guarded. Speech: Clear. Mood: Euthymic Affect: Blunted. Thought process: Linear Thought Content: Delusional. Cognition: A&Ox4 Insight: Fair Judgment: Fair Interventions PRN's used: Aleve. Therapeutic interventions: 1:1 assessment, therapeutic conversation, active listening, medication administration/education/monitoring, behavior monitoring and intervention as needed; reality orientation, limit setting, distraction, redirection, provided encouragement and positive reinforcement, Q 15 minute safety checks. Restraints/seclusion/emergency medication: N/A Justification of Continued Inpatient Treatment: Patient requires a safe and therapeutic milieu while waiting placement. Patient is LPS conserved. This appears to be patients baseline.
[2021-04-10] MEDS: naproxen sodium 220mg tablet PO PRN ×2 (01:01→20:57)
[2021-04-10] MEDS: divalproex 250mg tablet, delayed-release PO SCH (07:46)
[2021-04-10] MEDS: trihexyphenidyl HCL 5 MG tablet PO SCH ×3 (07:46→20:50)
[2021-04-10] MEDS: atorvastatin 10mg tablet PO SCH (07:47)
[2021-04-10] MEDS: pantoprazole 40mg Tablet.DR PO SCH (07:48)
[2021-04-10] MEDS: haloperidol 10mg/5ml UD oral solution PO SCH ×3 (07:49→17:48)
[2021-04-10 08:00] VITALS: BP 106/66
--- NOTE | 2021-04-10 08:58 | NUR ---
F/u 04/10: Pt continues eating well with mostly 100% PO intake meeting needs. LBM 04/09. No nutrition intervention implemented at this time. Will continue to follow. Recommend: 1. Continue regular diet 2. Bowel care as needed 3. Weekly scaled weights Addendum: 04/10/21 at [address] Amended: Links added.
[2021-04-10] MEDS: NICOTINE POLACRILEX 2 MG LOZENGE BC PRN ×3 (09:28→18:20)
--- NOTE | 2021-04-10 13:36 | NUR ---
Pt. attended group today. Today's group was about the different communications styles i.e passive, aggressive and assertive. We discussed what the characteristics of each style was. We then discussed where they saw themselves at now and where they would like to be with their communication style. Pt. engaged appropriately in the group, he had insight into his own self. He reported that he can tend to be a bit aggressive in his communication style. He was good about listening to others and not talking over others today. At times he would veer into loose associations but was amenable to re-direction. He was calm and pleasant to work with today. Natasha Moe, TRANSITIONS MANAGER RN
--- NOTE | 2021-04-10 14:47 | NUR ---
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 Pt Public Guardian is Thuy Frost phone number #[phone]. Pt was at [place], and was becoming paranoid about his finances. It was found that $200 of his PNI money was unaccounted for and this escalated the patient. Pt began having outbursts of anger and became increasingly paranoid and delusional towards staff and peers. Assessment What has happened this shift: Pt asleep at change of shift, awoke around 0700, seen walking the halls. Pt has a rick area to the tip of his nose. Compliant and pleasant with med administration and care. Nurse asked pt if he was hearing any voices and pt stated "sometimes I hear voices, like this morning". This morning heard pt in room next door getting loud and yelling. When asked, states "I was on the phone speaking with Marcio my conservator, sometimes he makes me mad". S/I, H/I: Pt denies. A/VH: pt states "hears voices sometimes", pt is delusional. Sleep: See sleep assessment ADL's: Independent, no shower today Group attendance: yes Were meds taken: Yes Any med S/E: None noted or reported. Mental Status Exam Appearance: Clean, wearing casual clothes, a sweater and jeans. Eye contact: Good Behavior: mildly Irritable/agitated, cooperative. Speech: Clear, loud, slow Mood: Labile Affect: Mostly calm Thought process: delusional Thought Content: delusional Cognition: A/O X 4 Insight: Fair Judgment: Fair Interventions PRN's used: nicotine lozengesx2. Therapeutic interventions: 1:1 assessment, therapeutic conversation, active listening, medication administration/education/monitoring, behavior monitoring and intervention as needed; reality orientation, limit setting, distraction, redirection, provided encouragement and positive reinforcement, Q 15 minute safety checks. Restraints/seclusion/emergency medication: N/A Justification of Continued Inpatient Treatment: Patient requires a safe and therapeutic milieu while waiting placement. Patient is LPS conserved. This appears to be patients baseline.
[2021-04-10] MEDS: olanzapine 10mg tablet PO SCH ×2 (17:48→20:51)
[2021-04-10 19:57] VITALS: BP 147/84
[2021-04-10] MEDS: temazepam 15mg capsule PO SCH (20:50)
[2021-04-10] MEDS: divalproex sodium 500mg tablet.DR PO SCH (20:50)
[2021-04-10] MEDS: haloperidol 5mg tablet PO SCH (20:51)
[2021-04-11 07:42] VITALS: BP 94/58
[2021-04-11] MEDS: pantoprazole 40mg Tablet.DR PO SCH (08:09)
[2021-04-11] MEDS: divalproex 250mg tablet, delayed-release PO SCH (08:09)
[2021-04-11] MEDS: atorvastatin 10mg tablet PO SCH (08:10)
[2021-04-11] MEDS: haloperidol 10mg/5ml UD oral solution PO SCH ×3 (08:10→17:24)
[2021-04-11] MEDS: trihexyphenidyl HCL 5 MG tablet PO SCH ×3 (08:10→20:46)
[2021-04-11] MEDS: naproxen sodium 220mg tablet PO PRN ×2 (09:09→20:46)
--- NOTE | 2021-04-11 10:13 | NUR ---
MAURICIO [facility]EVES INTERVIEW Hardik interviewed with [facility] today via [employer] with group underwriter's assistance. Interview went well and he told Amy ([facility] staff) that he would like to return there. She let Hardik know they have new staff so some of his issues from before should be resolved. Amy reported she will talk to her team and be in touch with Hardik's Public Guardian. LEXIE Squires
[2021-04-11] MEDS: LORazepam 1 MG tablet PO PRN (10:58)
[2021-04-11] MEDS: NICOTINE POLACRILEX 2 MG LOZENGE BC PRN ×3 (11:00→18:30)
--- NOTE | 2021-04-11 14:22 | NUR ---
Pt. attended group today. We continued talking about Communication today focusing on how to utilize I messages. This Hand Booked Folder And Stitcher shared how to create an I message and then we practiced writing them on the board. We also discussed the Passive Aggressive style of Communication. Pt. was in a good mood today. He followed along well with the group and engaged in the discussion, he would at times veer into loose associations and need to be redirected back to the topic at hand. He was calm, compliant and pleasant to work with. He does not usually have awareness of how he is affecting others when he rambles but does not resist redirection. He does utilize eye contact and attempts to connect with this Hand Booked Folder And Stitcher with his use of examples that he feels relate to the topic (sometimes his thoughts do relate well and others times it is hard to follow where he is coming from). He appeared to enjoy group today. Natasha Moe LCSW
[2021-04-11] MEDS: olanzapine 10mg tablet PO SCH ×2 (17:24→20:46)
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
[2021-04-11 19:48] VITALS: BP 120/83
[2021-04-11] MEDS: haloperidol 5mg tablet PO SCH (20:46)
[2021-04-11] MEDS: temazepam 15mg capsule PO SCH (20:46)
[2021-04-11] MEDS: divalproex sodium 500mg tablet.DR PO SCH (20:46)
--- NOTE | 2021-04-11 22:29 | NUR ---
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 Pt Public Guardian is Thuy Frost phone number #[phone]. Pt was at [place], and was becoming paranoid about his finances. It was found that $200 of his PNI money was unaccounted for and this escalated the patient. Pt began having outbursts of anger and became increasingly paranoid and delusional towards staff and peers. Assessment What has happened this shift: Pt was in a pleasant mood at change of shift waving to staff and smiling as he passed the window in the nurses station. Pt talks about his finger getting cut with clippers earlier in the day and acknowledges that it was accidental. Pt spent time watching music videos and talks about his favorite music before going to bed. S/I, H/I: Pt denies. A/VH: +AH Sleep: see sleep hours ADL's: Independent Group attendance: no groups Were meds taken: Yes Any med S/E: None noted or reported. Mental Status Exam Appearance: Clean, wearing casual clothes Eye contact: Good Behavior: cooperative pleasant calm Speech: Clear, loud, slow Mood: euthymic Affect: Irritable. Thought process: delusional Thought Content: Getting cut with fingernail clippers. Cognition: A/O X 4 Insight: Fair Judgment: Fair Interventions PRN's used: alebeba Therapeutic interventions: 1:1 assessment, therapeutic conversation, active listening, medication administration/education/monitoring, behavior monitoring and intervention as needed; reality orientation, limit setting, distraction, redirection, provided encouragement and positive reinforcement, Q 15 minute safety checks. Restraints/seclusion/emergency medication: N/A Justification of Continued Inpatient Treatment: Patient requires a safe and therapeutic milieu while waiting placement. Patient is LPS conserved. This appears to be patients baseline.
[2021-04-12 07:32] LABS: BASOPHILS % (AUTO) 0.5 % (0-1); EOSINOPHILS # (AUTO) 0.6 X10'3 (0-0.9); EOSINOPHILS % (AUTO) 12.9 % (0-6); HEMATOCRIT 36.5 % (42.0-52.0); HEMOGLOBIN 12.1 g/dl (14.0-17.9); LYMPHOCYTES # (AUTO) 1.5 X10'3 (1.1-4.8); MEAN CORPUSCULAR HGB CONC 33.2 g/dL (33.0-36.5); MEAN CORPUSCULAR VOLUME 96.6 FL (78-98); MONOCYTES # (AUTO) 0.6 X10'3 (0-0.9); MONOCYTES % (AUTO) 14.9 % (2-12); NEUTROPHILS # (AUTO) 1.6 X10'3 (1.8-7.7); NEUTROPHILS % (AUTO) 36.7 % (42-75); PLATELET COUNT 168 X10'3 (140-440); RED BLOOD COUNT 3.78 X10'6 (4.70-6.10); RED CELL DISTRIBUTION WIDTH 14.5 % (11.5-14.5); WHITE BLOOD COUNT 4.3 X10'3 (4.5-11.0)
[2021-04-12] MEDS: divalproex 250mg tablet, delayed-release PO SCH (07:56)
[2021-04-12] MEDS: haloperidol 10mg/5ml UD oral solution PO SCH ×3 (07:56→17:56)
[2021-04-12] MEDS: atorvastatin 10mg tablet PO SCH (07:56)
[2021-04-12] MEDS: trihexyphenidyl HCL 5 MG tablet PO SCH ×3 (07:56→20:15)
[2021-04-12] MEDS: pantoprazole 40mg Tablet.DR PO SCH (07:56)
[2021-04-12 07:59] LABS: ALANINE AMINOTRANSFERASE 33 U/L (12-78); ALBUMIN 2.9 G/DL (3.4-5.0); ALBUMIN/GLOBULIN RATIO 1.1 (1.1-1.5); ALKALINE PHOSPHATASE 95 IU/L (46-116); ANION GAP 7 (8-16); ASPARTATE AMINO TRANSFERASE 24 U/L (10-37); BILIRUBIN,TOTAL 0.3 MG/DL (0.1-1.0); BLOOD UREA NITROGEN 21 MG/DL (7-18); BUN/CREATININE RATIO 23.1 (5.4-32.0); CALCIUM 8.8 MG/DL (8.5-10.1); CHLORIDE 107 MMOL/L (99-107); CHOL/HDL RATIO 3.3 (0.00-4.99); CHOLESTEROL 128 MG/DL (0-200); CREATININE 0.91 MG/DL (0.60-1.10); GLUCOSE 87 MG/DL (70-104); HDL CHOLESTEROL 39 MG/DL (35-60); LDL CHOLESTEROL 74 MG/DL (50-100); POTASSIUM 4.9 MMOL/L (3.5-5.1); SODIUM 142 MMOL/L (135-145); TOTAL CARBON DIOXIDE 28.4 MMOL/L (24-32); TOTAL PROTEIN 5.6 G/DL (6.4-8.2); TRIGLYCERIDES 48 MG/DL (20-135); VALPROATE 72 UG/ML (50-100); eGFR 86 ML/MIN
[2021-04-12 08:00] VITALS: BP 95/59
[2021-04-12] MEDS: NICOTINE POLACRILEX 2 MG LOZENGE BC PRN ×3 (09:51→18:22)
--- NOTE | 2021-04-12 14:51 | NUR ---
Pt. attended group today. Todays group was about the different types of boundaries i.e porous, rigid and healthy. We also worked on how to set boundaries and where we felt we were at in our process of boundary setting. Pt. engaged in the discussion and activity today. His demeanor was calm, compliant and pleasant to work with. He struggled today with blurting out and talking when others were talking but could be redirected. His thought content usually contains delusional material but he is also able to share concrete and on topic thoughts as well. Natasha Moe, BENCH WORKER HOLLOW HANDLE
[2021-04-12] MEDS: olanzapine 10mg tablet PO SCH ×2 (17:55→20:14)
--- NOTE | 2021-04-12 18:04 | NUR ---
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 Pt Public Guardian is Thuy Frost phone number #[phone]. Pt was at [place], and was becoming paranoid about his finances. It was found that $200 of his PNI money was unaccounted for and this escalated the patient. Pt began having outbursts of anger and became increasingly paranoid and delusional towards staff and peers. Assessment What has happened this shift: Received pt sleeping in bed at shift change. Patient awakens and has breakfast in the community room with peers. Patient is a reasonably good mood. Patient is heard talking to himself periodically throughout the day. There were no incidences of escalations. Patient is joking around with staff today. Patient has been accepted at [facility], however, he is not to be told until just prior to discharge. S/I, H/I: Pt denies. A/VH: +AH Sleep: 8.5 hrs at [facility]. ADL's: Independent Group attendance: yes Were meds taken: Yes Any med S/E: None noted or reported. Mental Status Exam Appearance: Clean, wearing casual clothes Eye contact: Good Behavior: Cooperative. Watching t.v. in rec room. Speech: WNL. Patient has a drawl. Mood: Euthymic. Affect: Blunted. Thought process: delusional Thought Content: Discharge. Cognition: A/O X 4 Insight: Fair Judgment: Fair Interventions PRN's used: nicotine lozenge, Tylenol Therapeutic interventions: 1:1 assessment, therapeutic conversation, active listening, medication administration/education/monitoring, behavior monitoring and intervention as needed; reality orientation, limit setting, distraction, redirection, provided encouragement and positive reinforcement, Q 15 minute safety checks. Restraints/seclusion/emergency medication: N/A Justification of Continued Inpatient Treatment: Patient requires a safe and therapeutic milieu while waiting placement. Patient is LPS conserved. This appears to be patients baseline.
[2021-04-12 19:13] VITALS: BP 133/85
[2021-04-12] MEDS: temazepam 15mg capsule PO SCH (20:14)
[2021-04-12] MEDS: haloperidol 5mg tablet PO SCH (20:14)
[2021-04-12] MEDS: divalproex sodium 500mg tablet.DR PO SCH (20:15)
[2021-04-12] MEDS: naproxen sodium 220mg tablet PO PRN (20:15)
--- NOTE | 2021-04-12 20:55 | NUR ---
Nursing Progress Note Legal hold: LPS Client on involuntary status for GD Report received from MARTINA Pablo with use of SBAR Why are they here: Patient is LPS conserved and has a hx of schizoaffective disorder and PICA. Pt Public Guardian is Thuy Frost phone number #[phone]. Pt was at [place], and was becoming paranoid about his finances. It was found that $200 of his PNI money was unaccounted for and this escalated the patient. Pt began having outbursts of anger and became increasingly paranoid and delusional towards staff and peers. Assessment What has happened this shift: Pt was pleasant at shift change, walking in the [place] and requests nicotine lozenge. Pt was given prn. Pt states "ya, my day was good, but this shift change thing is really rough, seems like I have to start all over again with my day but it's ok" Pt spent time watching to with peers in the group room before going to bed. S/I, H/I: Pt denies. A/VH: "sometimes, not really today." Sleep: see sleep hours ADL's: Independent Group attendance: yes Were meds taken: Yes Any med S/E: None noted or reported. Mental Status Exam Appearance: Clean, wearing casual clothes Eye contact: Good Behavior: Cooperative. Watching t.v. in rec room. Speech: somewhat slow rate, normal rhythm Mood: Euthymic. Affect: Blunted. Thought process: delusional Thought Content: Discharge. Cognition: A/O X 4 Insight: Fair Judgment: Fair Interventions PRN's used: nicotine lozenge, aleve Therapeutic interventions: 1:1 assessment, therapeutic conversation, active listening, medication administration/education/monitoring, behavior monitoring and intervention as needed; reality orientation, limit setting, distraction, redirection, provided encouragement and positive reinforcement, Q 15 minute safety checks. Restraints/seclusion/emergency medication: N/A Justification of Continued Inpatient Treatment: Patient requires a safe and therapeutic milieu while waiting placement. Patient is LPS conserved. This appears to be patients baseline.
[2021-04-13 07:53] VITALS: BP 94/63
[2021-04-13] MEDS: pantoprazole 40mg Tablet.DR PO SCH (08:07)
[2021-04-13] MEDS: divalproex 250mg tablet, delayed-release PO SCH (08:07)
[2021-04-13] MEDS: trihexyphenidyl HCL 5 MG tablet PO SCH ×3 (08:07→20:14)
[2021-04-13] MEDS: atorvastatin 10mg tablet PO SCH (08:07)
[2021-04-13] MEDS: haloperidol 10mg/5ml UD oral solution PO SCH ×3 (08:08→17:11)
[2021-04-13] MEDS: NICOTINE POLACRILEX 2 MG LOZENGE BC PRN (10:06)
[2021-04-13] MEDS ORDERED: benztropine 1 mg/ml 2ml ampule ONE (16:39)
[2021-04-13] MEDS: LORazepam 1 MG tablet PO PRN (17:11)
[2021-04-13] MEDS: olanzapine 10mg tablet PO SCH ×2 (17:11→20:14)
--- NOTE | 2021-04-13 18:08 | NUR ---
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 Pt Public Guardian is Thuy Frost phone number #[phone]. Pt was at [place], and was becoming paranoid about his finances. It was found that $200 of his PNI money was unaccounted for and this escalated the patient. Pt began having outbursts of anger and became increasingly paranoid and delusional towards staff and peers. Assessment What has happened this shift: Received Pt. sleeping in bed at shift change. Pt. awake for breakfast and took all medications. Pt. is a social mood, making light jokes and calling a female nurse his daughter. Pt. shaved. 1:1 done at bedside. Pt. reports he is doing good and denies SI/HI, A/V hallucinations. Pt. observed watching TV in community room. Pt. observed talking loudly to himself at times. Pt. had incidence of EPS manifesting with cog-wheel rigidity and eyes rolling back into his head. Pt. received STAT order for Cogentin 2mg IM with good effect. In the evening, pt. reports the voices use him to try to get to God. Pt. states, The voices are really nice, kissing my ass and everything you know. Pt. given evening medications with Ativan 1mg po with good effect. Patient has been accepted at [place], however, he is not to be told until just prior to discharge. S/I, H/I: Denies A/VH: + AH Sleep: 8.5 hrs at [facility]. Pt. did not nap during day shift. ADL's: Independent. Pt. shaved today. Group attendance: yes Were meds taken: Yes Any med S/E: Denies Mental Status Exam Appearance: Clean, wearing casual clothes Eye contact: Good Behavior: Cooperative. Social and joking with staff and peers. Watching t.v. in rec room. Speech: Loud, but otherwise WNL. Mood: Euthymic. Affect: Blunted. Thought process: Tangential Thought Content: Circumstantial. . Cognition: A/O X 4 Insight: Fair Judgment: Fair Interventions PRN's used: Ativan 1mg po x1 and nicotine lozenge Therapeutic interventions: 1:1 assessment, therapeutic conversation, active listening, medication administration/education/monitoring, behavior monitoring and intervention as needed; reality orientation, limit setting, distraction, redirection, provided encouragement and positive reinforcement, Q 15 minute safety checks. Restraints/seclusion/emergency medication: N/A Justification of Continued Inpatient Treatment: Patient requires a safe and therapeutic milieu while waiting placement. Patient is LPS conserved. This appears to be patients baseline.
[2021-04-13 20:00] VITALS: BP 114/80
[2021-04-13] MEDS: divalproex sodium 500mg tablet.DR PO SCH (20:14)
[2021-04-13] MEDS: naproxen sodium 220mg tablet PO PRN (20:14)
[2021-04-13] MEDS: temazepam 15mg capsule PO SCH (20:14)
[2021-04-13] MEDS: haloperidol 5mg tablet PO SCH (20:15)
--- NOTE | 2021-04-14 01:07 | NUR ---
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 Pt Public Guardian is Thuy Frost phone number #[phone]. Pt was at [place], and was becoming paranoid about his finances. It was found that $200 of his PNI money was unaccounted for and this escalated the patient. Pt began having outbursts of anger and became increasingly paranoid and delusional towards staff and peers. Assessment What has happened this shift: Patient slept intermittently following shift change. Patient awoke and socialized lightly. He partook of snacks. Patient tells this telegraphic typewriter operator that he has been "abandoned by his family. He describes "an alien in my head, it's a 45 caliber, my mother was supposed to take me to [place] to get it taken out. I want it left it in." S/I, H/I: Denies A/VH: Audible. Sleep: Will tally at 0500 hours.. ADL's: Independent. 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 Were meds taken: Yes, medication compliant. Any med S/E: None noted or observed. Mental Status Exam Appearance: Clean, wearing casual clothes. Eye contact: Good. Behavior: Cooperative, somewhat drowsy. Speech: WNL Mood: Euthymic. Affect: Blunted. Thought process: Tangential. Thought Content: Circumstantial. . Cognition: A/O X4. Insight: Fair. Judgment: Fair. Interventions PRN's used: None. Therapeutic interventions: 1:1 assessment, therapeutic conversation, active listening, medication administration/education/monitoring, behavior monitoring and intervention as needed; reality orientation, limit setting, distraction, redirection, provided encouragement and positive reinforcement, Q 15 minute safety checks. Restraints/seclusion/emergency medication: N/A Justification of Continued Inpatient Treatment: Patient requires a safe and therapeutic milieu while waiting placement. Patient is LPS conserved. This appears to be patients baseline.
[2021-04-14] MEDS: atorvastatin 10mg tablet PO SCH (07:53)
[2021-04-14] MEDS: pantoprazole 40mg Tablet.DR PO SCH (07:53)
[2021-04-14] MEDS: trihexyphenidyl HCL 5 MG tablet PO SCH ×3 (07:53→21:08)
[2021-04-14] MEDS: naproxen sodium 220mg tablet PO PRN ×2 (07:53→23:45)
[2021-04-14] MEDS: divalproex 250mg tablet, delayed-release PO SCH (07:53)
[2021-04-14] MEDS: haloperidol 10mg/5ml UD oral solution PO SCH ×3 (07:56→17:52)
[2021-04-14 08:00] VITALS: BP 102/67
[2021-04-14] MEDS: LORazepam 1 MG tablet PO PRN (10:05)
--- NOTE | 2021-04-14 12:55 | NUR ---
Pt. attended group today. We played [email or web address]. Pt was in a good mood with a full range of affect. He interacted well with his peers today responding to a joke with sarcasm which made everyone laugh. He was calm and pleasant to work with and appeared to enjoy [employer]. Natasha Moe, PARTY PLAN SALES AGENT
--- NOTE | 2021-04-14 17:49 | NUR ---
Nursing Progress Note Legal hold: LPS Client on involuntary status for GD Report received from MARTINA Arambula with use of SBAR Why are they here: Patient is LPS conserved and has a hx of schizoaffective disorder and PICA. Pt Public Guardian is Thuy Frost phone number #[phone]. Pt was at [place], and was becoming paranoid about his finances. It was found that $200 of his PNI money was unaccounted for and this escalated the patient. Pt began having outbursts of anger and became increasingly paranoid and delusional towards staff and peers. Assessment What has happened this shift: Received pt sleeping in bed at shift change. Patient awakens for breakfast, and takes medications without incident. Patient sits in his room and looks out the window with his headphones on. Patient reiterates that he does hear voices this morning. Patient requested Ativan with good effect. Patient talks loudly to himself at times. Patient has been social with staff, and likes to play cards and joke with staff. S/I, H/I: Denies A/VH: + AH Sleep: 7.25 hrs at [facility]. Pt. did not nap during day shift. ADL's: Independent. Group attendance: yes Were meds taken: Yes Any med S/E: Denies Mental Status Exam Appearance: Clean, wearing casual clothes Eye contact: Good Behavior: Cooperative. Social and joking with staff. Watching t.v. in rec room. Speech: Loud, but otherwise WNL. Mood: Euthymic. Affect: Blunted. Thought process: Tangential Thought Content: Circumstantial. Cognition: A/O X 4 Insight: Fair Judgment: Fair Interventions PRN's used: Ativan 1mg po x1 and nicotine lozenge Therapeutic interventions: 1:1 assessment, therapeutic conversation, active listening, medication administration/education/monitoring, behavior monitoring and intervention as needed; reality orientation, limit setting, distraction, redirection, provided encouragement and positive reinforcement, Q 15 minute safety checks. Restraints/seclusion/emergency medication: N/A Justification of Continued Inpatient Treatment: Patient requires a safe and therapeutic milieu while waiting placement. Patient is LPS conserved. This appears to be patients baseline.
[2021-04-14] MEDS: olanzapine 10mg tablet PO SCH ×2 (17:52→21:07)
[2021-04-14] MEDS: NICOTINE POLACRILEX 2 MG LOZENGE BC PRN (19:23)
[2021-04-14 20:00] VITALS: BP 119/70
[2021-04-14] MEDS: temazepam 15mg capsule PO SCH ×2 (21:07→23:44)
[2021-04-14] MEDS: divalproex sodium 500mg tablet.DR PO SCH (21:08)
[2021-04-14] MEDS: haloperidol 5mg tablet PO SCH (21:08)
--- NOTE | 2021-04-14 23:20 | NUR ---
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 Pt Public Guardian is Thuy Frost phone number #[phone]. Pt was at [place], and was becoming paranoid about his finances. It was found that $200 of his PNI money was unaccounted for and this escalated the patient. Pt began having outbursts of anger and became increasingly paranoid and delusional towards staff and peers. Assessment What has happened this shift: Patient socializes this shift with others. He intermittently complains of multiple body aches which usually resolve with distraction. Patient is friendly, he remains delusional. Patient denies S/I, H/I. He is medication compliant. S/I, H/I: Denies A/VH: Audible. Sleep: Will tally at 0500 hours.. ADL's: Independent. Group attendance: No group on research professional. Were meds taken: Yes, medication compliant. Any med S/E: None noted or observed. Mental Status Exam Appearance: Clean, wearing casual clothes. Eye contact: Good. Behavior: Cooperative, friendly. Speech: WNL Mood: Euthymic. Affect: Blunted. Thought process: Tangential. Thought Content: Circumstantial. . Cognition: A/O X4. Insight: Fair. Judgment: Fair. Interventions PRN's used: Nicotine lozenge. Therapeutic interventions: 1:1 assessment, therapeutic conversation, active listening, medication administration/education/monitoring, behavior monitoring and intervention as needed; reality orientation, limit setting, distraction, redirection, provided encouragement and positive reinforcement, Q 15 minute safety checks. Restraints/seclusion/emergency medication: N/A Justification of Continued Inpatient Treatment: Patient requires a safe and therapeutic milieu while waiting placement. Patient is LPS conserved. This appears to be patients baseline.
[2021-04-15 07:34] VITALS: BP 103/57
[2021-04-15] MEDS: pantoprazole 40mg Tablet.DR PO SCH (07:58)
[2021-04-15] MEDS: divalproex 250mg tablet, delayed-release PO SCH (07:58)
[2021-04-15] MEDS: trihexyphenidyl HCL 5 MG tablet PO SCH ×3 (07:59→20:09)
[2021-04-15] MEDS: atorvastatin 10mg tablet PO SCH (07:59)
[2021-04-15] MEDS: haloperidol 10mg/5ml UD oral solution PO SCH ×3 (07:59→17:53)
[2021-04-15] MEDS: NICOTINE POLACRILEX 2 MG LOZENGE BC PRN ×2 (08:45→14:06)
[2021-04-15] MEDS: LORazepam 1 MG tablet PO PRN (12:04)
--- NOTE | 2021-04-15 17:32 | NUR ---
Nursing Progress Note Legal hold: LPS Client on involuntary status for GD Report received from Lester, RN with use of SBAR Why are they here: Patient is LPS conserved and has a hx of schizoaffective disorder and PICA. Pt Public Guardian is Thuy Frost phone number #[phone]. Pt was at [place], and was becoming paranoid about his finances. It was found that $200 of his PNI money was unaccounted for and this escalated the patient. Pt began having outbursts of anger and became increasingly paranoid and delusional towards staff and peers. Assessment What has happened this shift: Pt is pleasant and responds in conversation with this RN. Later in the afternoon he requested Ativan as he was hearing voices that were upsetting him. Ativan given with good effect. He remained calm during the afternoon when another resident had an escalation. He states he feels like he is good at knowing what he needs when he hears voices and he will tell someone when he needs a medicine to help. At one point he talked about Hardik Schafer the special needs bus driver who won the [employer]. Watched baseball in the afternoon. S/I, H/I: Denies A/VH: +AH, +VH Sleep: No naps during the day ADL's: Independent. Group attendance: Yes Were meds taken: Yes Any med S/E: None noted Mental Status Exam Appearance: Wearing his own clothes. Hair in pony tail most of the day Eye contact: Direct Behavior: Pleasant, calm. Speech: WNL Mood: Euthymic. Affect: Congruent to mood Thought process: Tangential. Thought Content: Delusions continue. Cognition: A/O X4. Insight: Fair. Judgment: Fair. Interventions PRN's used: Nicotine lozenges, Ativan. Therapeutic interventions: 1:1 assessment, therapeutic conversation, active listening, medication administration/education/monitoring, behavior monitoring and intervention as needed; reality orientation, limit setting, distraction, redirection, provided encouragement and positive reinforcement, Q 15 minute safety checks. Restraints/seclusion/emergency medication: N/A Justification of Continued Inpatient Treatment: Patient requires a safe and therapeutic milieu while waiting placement. Patient is LPS conserved. This appears to be patients baseline.
[2021-04-15] MEDS: olanzapine 10mg tablet PO SCH ×2 (17:53→20:09)
[2021-04-15 19:00] VITALS: BP 118/91
[2021-04-15] MEDS: naproxen sodium 220mg tablet PO PRN (20:07)
[2021-04-15] MEDS: haloperidol 5mg tablet PO SCH (20:08)
[2021-04-15] MEDS: benztropine 1mg tablet PO PRN (20:09)
[2021-04-15] MEDS: divalproex sodium 500mg tablet.DR PO SCH (20:09)
[2021-04-15] MEDS: temazepam 15mg capsule PO SCH (20:12)
--- NOTE | 2021-04-16 03:50 | NUR ---
Nursing Progress Note Legal hold: LPS Client on involuntary status for GD Report received from MARTINA Mayer with use of SBAR Why are they here: Patient is LPS conserved and has a hx of schizoaffective disorder and PICA. Pt Public Guardian is Thuy Frost phone number #[phone]. Pt was at [place], and was becoming paranoid about his finances. It was found that $200 of his PNI money was unaccounted for and this escalated the patient. Pt began having outbursts of anger and became increasingly paranoid and delusional towards staff and peers. Assessment What has happened this shift: Patient is observed socializing with others on the unit. Patient exhibits delusional behavior as is his norm. Patient becomes animated at times but is easily redirected. Patient is cooperative and medication compliant. S/I, H/I: Denies A/VH: Audible. Sleep: Will tally at 0500 hours.. ADL's: Independent. 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 Were meds taken: Yes, medication compliant. Any med S/E: None noted or observed. Mental Status Exam Appearance: Clean, wearing casual clothes. Eye contact: Good. Behavior: Cooperative, friendly. Speech: WNL Mood: Euthymic. Affect: Blunted. Thought process: Tangential. Thought Content: Circumstantial. . Cognition: A/O X4. Insight: Fair. Judgment: Fair. Interventions PRN's used: Nicotine lozenge. Therapeutic interventions: 1:1 assessment, therapeutic conversation, active listening, medication administration/education/monitoring, behavior monitoring and intervention as needed; reality orientation, limit setting, distraction, redirection, provided encouragement and positive reinforcement, Q 15 minute safety checks. Restraints/seclusion/emergency medication: N/A Justification of Continued Inpatient Treatment: Patient requires a safe and therapeutic milieu while waiting placement. Patient is LPS conserved. This appears to be patients baseline.
[2021-04-16] MEDS: atorvastatin 10mg tablet PO SCH (07:40)
[2021-04-16] MEDS: pantoprazole 40mg Tablet.DR PO SCH (07:40)
[2021-04-16] MEDS: haloperidol 10mg/5ml UD oral solution PO SCH ×3 (07:40→17:36)
[2021-04-16] MEDS: divalproex 250mg tablet, delayed-release PO SCH (07:40)
[2021-04-16] MEDS: trihexyphenidyl HCL 5 MG tablet PO SCH ×3 (07:40→20:00)
[2021-04-16 07:47] VITALS: BP 103/63
[2021-04-16] MEDS: NICOTINE POLACRILEX 2 MG LOZENGE BC PRN ×2 (08:56→11:38)
[2021-04-16 09:08] LABS: PSA, FREE 0.12 ng/mL
[2021-04-16] MEDS: LORazepam 1 MG tablet PO PRN (09:43)
--- NOTE | 2021-04-16 17:15 | NUR ---
Nursing Progress Note Legal hold: LPS Client on involuntary status for GD Report received from Veronica Da Silva RN with use of SBAR Why are they here: Patient is LPS conserved and has a hx of schizoaffective disorder and PICA. Pt Public Guardian is Thuy Frost phone number #[phone]. Pt was at [place], and was becoming paranoid about his finances. It was found that $200 of his PNI money was unaccounted for and this escalated the patient. Pt began having outbursts of anger and became increasingly paranoid and delusional towards staff and peers. Assessment What has happened this shift: Received Pt. sleeping in bed at shift change. Pt. awoke shortly after and observed pacing halls. Pt. is friendly upon greeting and requests medications. 1:1 done at bed side and pt. denied all psychiatric symptoms. Pt. took all meds and ate all meals in community room. Pt. requested Ativan prn and received 1mg with good effect. Pt. reports anxiety regarding his phone. Pt. has paranoid delusion that staff at this hospital broke his phone to keep it from him. RN attempted reality testing but pt. has fixed delusion. In the afternoon pt. became more calm and social, laughing and joking with peer in Rec Room. Pt. became paranoid of another male peer and started to swear at him, yelling, Dont get near me. Pt. approached this RN and stated, Hes after me Hes always talking bad about me. RN assured pt. that he is safe and pt. became calmer. Patient has been accepted at [place], however, he is not to be told until just prior to discharge. S/I, H/I: Denies A/VH: Denies but appears to be responding to internal stimuli. Sleep: 7 hrs at [facility]. Pt. did not nap during day shift. ADL's: Independent. Group attendance: NA Were meds taken: Yes Any med S/E: Denies Mental Status Exam Appearance: Clean, wearing casual clothes Eye contact: Good Behavior: Cooperative. Social and joking with staff and peers. Watching t.v. in rec room. Becomes paranoid at times and got into one verbal altercation with a peer. Speech: Loud, but otherwise WNL. Mood: Euthymic with breakthrough anxiety. Affect: Blunted. Thought process: Paranoid delusions. Tangential. Thought Content: Circumstantial. Cognition: A/O X 4 Insight: Fair Judgment: Fair Interventions PRN's used: Ativan 1mg po x1 and nicotine lozenges Therapeutic interventions: 1:1 assessment, therapeutic conversation, active listening, medication administration/education/monitoring, behavior monitoring and intervention as needed; reality orientation, limit setting, distraction, redirection, provided encouragement and positive reinforcement, Q 15 minute safety checks. Restraints/seclusion/emergency medication: N/A Justification of Continued Inpatient Treatment: Patient requires a safe and therapeutic milieu while waiting placement. Patient is LPS conserved. This appears to be patients baseline.
[2021-04-16] MEDS: olanzapine 10mg tablet PO SCH ×2 (17:36→20:01)
[2021-04-16] MEDS: haloperidol 5mg tablet PO SCH (20:01)
[2021-04-16] MEDS: divalproex sodium 500mg tablet.DR PO SCH (20:01)
[2021-04-16] MEDS: temazepam 15mg capsule PO SCH (20:01)
[2021-04-16 20:08] VITALS: BP 114/78
--- NOTE | 2021-04-16 23:27 | NUR ---
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 Pt Public Guardian is Thuy Frost phone number #[phone]. Pt was at [place], and was becoming paranoid about his finances. It was found that $200 of his PNI money was unaccounted for and this escalated the patient. Pt began having outbursts of anger and became increasingly paranoid and delusional towards staff and peers. Assessment What has happened this shift: The patient was seen at bedside for 1:1. He appears to be in a good mood, and he reports the same. Patient told a couple jokes tonight that he thought were funnier than they were, but he really laughed. He spent most of the evening in the community room watching tv with his peers. He didn't get upset with anybody or make delusional statements. Requested Naproxen at , which he describes as helpful. S/I, H/I: Denies. A/VH: Denies. Sleep: See sleep assessment. ADL's: Independent Group attendance: No group today Were meds taken: Yes Any med S/E: None reported or observed. Mental Status Exam Appearance: Tall male with long, messy, dark hair, wearing proper personal clothing. Eye contact: Good Behavior: Cooperative, isolative, guarded. Speech: Clear. Mood: Euthymic Affect: Full range. Thought process: Linear Thought Content: Delusional. Cognition: A&Ox4 Insight: Fair Judgment: Fair Interventions PRN's used: Caio. Therapeutic interventions: 1:1 assessment, therapeutic conversation, active listening, medication administration/education/monitoring, behavior monitoring and intervention as needed; reality orientation, limit setting, distraction, redirection, provided encouragement and positive reinforcement, Q 15 minute safety checks. Restraints/seclusion/emergency medication: N/A Justification of Continued Inpatient Treatment: Patient requires a safe and therapeutic milieu while waiting placement. Patient is LPS conserved. This appears to be patients baseline.
[2021-04-17] MEDS: haloperidol 10mg/5ml UD oral solution PO SCH ×3 (07:29→18:18)
[2021-04-17] MEDS: divalproex 250mg tablet, delayed-release PO SCH (07:29)
[2021-04-17] MEDS: atorvastatin 10mg tablet PO SCH (07:29)
[2021-04-17] MEDS: trihexyphenidyl HCL 5 MG tablet PO SCH ×3 (07:29→20:01)
[2021-04-17] MEDS: pantoprazole 40mg Tablet.DR PO SCH (07:29)
[2021-04-17] MEDS: NICOTINE POLACRILEX 2 MG LOZENGE BC PRN ×3 (07:41→16:46)
[2021-04-17 07:47] VITALS: BP 116/73
[2021-04-17] MEDS: naproxen sodium 220mg tablet PO PRN (09:08)
--- NOTE | 2021-04-17 09:37 | NUR ---
F/u 04/17: Pt continues eating well with mostly 100% PO intake meeting needs. LBM 04/16 per EMR. No nutrition intervention implemented at this time. Will continue to follow. Recommend: 1. Continue regular diet 2. Bowel care as needed 3. Weekly scaled weights Addendum: 04/17/21 at [address] Amended: Links added.
[2021-04-17] MEDS: LORazepam 1 MG tablet PO PRN ×2 (12:23→16:45)
--- NOTE | 2021-04-17 14:14 | NUR ---
Pt. attended group today. The group today was about Anxiety, they were asked to identify the natural and silent triggers they have experienced. We also discussed panic attacks and how they differ. The second half of group was about what coping skills we can utilize when we are anxious. This Metal Sheet Roller Operator led a Visualization/Breathing technique and also had them scale their anxiety levels for today. Pt. engaged in discussion appropriately today. He shared his triggers and coping skills he utilizes when he feels anxious. His thought content and thought process was WNL today for the most part. He was able to appropriately engage and then allow others in the group to talk. At one point he called out another person in the group who he felt was talking a lot today in group (in a non-aggressive way), he appeared to be just observing that behavior back to the person. He and his peer had a good laugh in this interaction which brought a light-hearted atmosphere to the group. Natasha Moe, JUVE
--- NOTE | 2021-04-17 16:36 | NUR ---
Placement: [facility] spoke mary/Mili, per t/c PG is coordinating transportation for pt to go to [place]. SS will f/u mary/[facility]RAVANI later on in the week re pt's transportation to [place]. Lana Vidal LCSW Addendum: 04/17/21 at 1637 by Lana TILLMAN Amended: Links added.
[2021-04-17] MEDS: haloperidol 5mg tablet PO PRN (16:46)
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
[2021-04-17] MEDS: olanzapine 10mg tablet PO SCH ×2 (18:19→20:00)
[2021-04-17] MEDS: temazepam 15mg capsule PO SCH (20:00)
[2021-04-17] MEDS: divalproex sodium 500mg tablet.DR PO SCH (20:00)
[2021-04-17] MEDS: haloperidol 5mg tablet PO SCH (20:02)
[2021-04-17 20:27] VITALS: BP 123/87
--- NOTE | 2021-04-17 23:04 | NUR ---
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 Pt Public Guardian is Thuy Frost phone number #[phone]. Pt was at [place], and was becoming paranoid about his finances. It was found that $200 of his PNI money was unaccounted for and this escalated the patient. Pt began having outbursts of anger and became increasingly paranoid and delusional towards staff and peers. Assessment What has happened this shift: Patient seen at bedside for 1:1. He is pleasantly psychotic tonight, making grandiose statements with delusional content. Otherwise, he was peaceful, hanging out in the rec room, but mostly he just sat in his chair looking out the window from his room. He retired back to his room after snacks and HS med pass. Naproxen was used for pain with some relief, he also required repeat of Restoril to help him get to sleep. He denies all MH symptoms tonight. S/I, H/I: Denies. A/VH: Denies. Sleep: See sleep assessment. ADL's: Independent Group attendance: No group today Were meds taken: Yes Any med S/E: None reported or observed. Mental Status Exam Appearance: Tall male with long, messy, dark hair, wearing nice personal clothing. Eye contact: Good Behavior: Cooperative, isolative, guarded, delusional. Speech: Clear. Mood: Euthymic Affect: Constricted with brightening. Thought process: Linear, concrete, circumstantial. Thought Content: Delusional. Cognition: A&Ox4 Insight: Fair Judgment: Fair Interventions PRN's used: Aleve, repeat Restoril. Therapeutic interventions: 1:1 assessment, therapeutic conversation, active listening, medication administration/education/monitoring, behavior monitoring and intervention as needed; reality orientation, limit setting, distraction, redirection, provided encouragement and positive reinforcement, Q 15 minute safety checks. Restraints/seclusion/emergency medication: N/A Justification of Continued Inpatient Treatment: Patient requires a safe and therapeutic milieu while waiting placement. Patient is LPS conserved. This appears to be patients baseline.
[2021-04-18] MEDS: acetaminophen 325mg tablet PO PRN ×2 (01:50→19:24)
[2021-04-18 07:43] VITALS: BP 117/74
[2021-04-18] MEDS: trihexyphenidyl HCL 5 MG tablet PO SCH ×3 (07:59→20:24)
[2021-04-18] MEDS: atorvastatin 10mg tablet PO SCH (07:59)
[2021-04-18] MEDS: pantoprazole 40mg Tablet.DR PO SCH (07:59)
[2021-04-18] MEDS: haloperidol 10mg/5ml UD oral solution PO SCH ×3 (07:59→17:48)
[2021-04-18] MEDS: divalproex 250mg tablet, delayed-release PO SCH (07:59)
[2021-04-18] MEDS: NICOTINE POLACRILEX 2 MG LOZENGE BC PRN (08:41)
[2021-04-18] MEDS: haloperidol 5mg tablet PO PRN ×2 (09:20→15:57)
[2021-04-18] MEDS: LORazepam 1 MG tablet PO PRN ×2 (09:21→15:57)
[2021-04-18] MEDS: benztropine 1mg tablet PO PRN (12:32)
--- NOTE | 2021-04-18 17:43 | NUR ---
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 Pt Public Guardian is Thuy Frost phone number #[phone]. Pt was at [facility], and was becoming paranoid about his finances. It was found that $200 of his PNI money was unaccounted for and this escalated the patient. Pt began having outbursts of anger and became increasingly paranoid and delusional towards staff and peers. Assessment What has happened this shift: Received Pt. sleeping in bed at shift change. Pt. awoke shortly after and observed pacing halls. Pt. is friendly upon greeting and requests medications. 1:1 done at bed side and pt. denied all psychiatric symptoms. Pt. took all meds and ate all meals in community room. After this Pt. c/o of anxiety r/t to his court hearing regarding going to a lower level of care. Pt. requested Haldol and Ativan PRN and received Haldol 5 and Ativan 2mg po with good effect. Pt. went to court and judges ruling was for reassessment of pt. in 2 weeks. Pt. observed pacing halls and watching TV in rec room. Pt. in overall good mood in afternoon but c/o anxiety and again requested Haldol and Ativan and received with good effect. Pt. had no verbal altercations with peers today. Pt. went up to nurses station and stated, God bless you. Patient has been accepted at [facility], however, he is not to be told until just prior to discharge. S/I, H/I: Denies A/VH: Denies but appears to be responding to internal stimuli. Sleep: Pt. did not appear to nap during the day. ADL's: Independent. Group attendance: No Were meds taken: Yes Any med S/E: Denies Mental Status Exam Appearance: Clean, wearing casual clothes Eye contact: Good Behavior: Cooperative. Social and joking with staff and peers. Watching t.v. in rec room. Anxious and pacing halls. Pt. had no verbal altercations today. Speech: Loud, but otherwise WNL. Mood: Euthymic with breakthrough anxiety and agitation. Affect: Blunted. Thought process: Paranoid delusions. Tangential. Disorganized. Thought Content: Circumstantial. Cognition: A/O X 4 Insight: Fair Judgment: Fair Interventions PRN's used: Haldol 5mg and Ativan 2mg po x2, nicotine lozenges Therapeutic interventions: 1:1 assessment, therapeutic conversation, active listening, medication administration/education/monitoring, behavior monitoring and intervention as needed; reality orientation, limit setting, distraction, redirection, provided encouragement and positive reinforcement, Q 15 minute safety checks. Restraints/seclusion/emergency medication: N/A Justification of Continued Inpatient Treatment: Patient requires a safe and therapeutic milieu while waiting placement. Patient is LPS conserved. This appears to be patients baseline.
[2021-04-18] MEDS: olanzapine 10mg tablet PO SCH ×2 (17:48→20:24)
[2021-04-18 19:30] VITALS: BP 115/71
[2021-04-18 20:00] VITALS: BP 115/71
[2021-04-18] MEDS: haloperidol 5mg tablet PO SCH (20:24)
[2021-04-18] MEDS: divalproex sodium 500mg tablet.DR PO SCH (20:24)
[2021-04-18] MEDS: temazepam 15mg capsule PO SCH (20:24)
--- NOTE | 2021-04-19 02:46 | NUR ---
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 Pt Public Guardian is Thuy Frost phone number #[phone]. Pt was at [place], and was becoming paranoid about his finances. It was found that $200 of his PNI money was unaccounted for and this escalated the patient. Pt began having outbursts of anger and became increasingly paranoid and delusional towards staff and peers. Assessment What has happened this shift: Received Pt. awake and watching TV in Rec Room at start of shift. A peer began yelling at pt. over choice of TV station and pt. became agitated but was able to calm down without PRN medication, listening to headphones and pacing phillips. 1:1 done at bedside. Pt. gives minimal information during interview, but reports feeling happy about the new clothes he received from his conservator. Pt. took all medications and went to bed. Patient has been accepted at [facility], however, he is not to be told until just prior to discharge. S/I, H/I: Denies A/VH: Denies but appears to be responding to internal stimuli. Sleep: Pt. did not appear to nap during the day. ADL's: Independent. Group attendance: NA Were meds taken: Yes Any med S/E: Denies Mental Status Exam Appearance: Clean, wearing casual clothes Eye contact: Good Behavior: Cooperative. Social with staff and peers. Watching t.v. in rec room. Pacing halls and listening to headphones. Speech: Loud, but otherwise WNL. Mood: Euthymic with breakthrough anxiety and agitation. Affect: Blunted. Thought process: Linear. Thought Content: Happy about new clothes. Cognition: A/O X 4 Insight: Fair Judgment: Fair Interventions PRN's used: Nicotine lozenges Therapeutic interventions: 1:1 assessment, therapeutic conversation, active listening, medication administration/education/monitoring, behavior monitoring and intervention as needed; reality orientation, limit setting, distraction, redirection, provided encouragement and positive reinforcement, Q 15 minute safety checks. Restraints/seclusion/emergency medication: N/A Justification of Continued Inpatient Treatment: Patient requires a safe and therapeutic milieu while waiting placement. Patient is LPS conserved. This appears to be patients baseline.
[2021-04-19] MEDS: trihexyphenidyl HCL 5 MG tablet PO SCH ×3 (07:53→20:44)
[2021-04-19] MEDS: atorvastatin 10mg tablet PO SCH (07:53)
[2021-04-19] MEDS: pantoprazole 40mg Tablet.DR PO SCH (07:53)
[2021-04-19] MEDS: divalproex 250mg tablet, delayed-release PO SCH (07:53)
[2021-04-19] MEDS: haloperidol 10mg/5ml UD oral solution PO SCH ×3 (07:53→17:42)
[2021-04-19] MEDS: NICOTINE POLACRILEX 2 MG LOZENGE BC PRN ×3 (07:54→19:08)
[2021-04-19 08:00] VITALS: BP 109/71
--- NOTE | 2021-04-19 08:27 | NUR ---
Pt. attended group today. The topic today was identifying the triggers, signs and symptoms of an upcoming episode/event so that Pts. can learn to apply coping skills before they get to a bad place with their symptoms (6-7 or more on a scale of 0-10). Each pt. scaled their mood and anxiety level today to practice scaling. Pt. reported that he was in a bad mood today, he placed himself on a 10 when he was scaling his mood. He reported he is worried about court this afternoon (LPS re-appointment) and stated, "I am going to plead the 5th". He engaged in the discussion minimally today and declined engaging in the activity. He left before the group was over. Natasha Moe LCSW Addendum: 04/20/21 at 0837 by Natasha Moe The date on this group note is wrong, it should be for 04/18.
--- NOTE | 2021-04-19 08:38 | NUR ---
Pt attended group today. The group was about the Flight or Fight Response and where do they see themselves when they get anxious or panic sets in. Each person scaled their mood and anxiety levels for today on a scale of 0-10, 0 being the best they have ever felt and 10 being the worst. We then did a "Ride the Wave" Visualization" to help them ride out the anxiety feelings. Pt. came into group late. He quietly listened for a bit but then became belligerent in demeanor towards a member in the group whom he had a previous verbal altercation with earlier in the day. He and the this peer began to argue, he accused the peer of bothering him on purpose. The argument ran its natural course and his peer ended up apologizing and the issues appeared to out. Pt. sat through the rest of the group quietly for the most part. His thought process appeared a bit scattered today. His thought did contain delusional content. Natasha Moe LCSW
[2021-04-19] MEDS: haloperidol 5mg tablet PO PRN (09:18)
[2021-04-19] MEDS: LORazepam 1 MG tablet PO PRN (09:18)
[2021-04-19] MEDS: diphenhydrAMINE 25mg capsule PO PRN (09:18)
[2021-04-19] MEDS ORDERED: DIVA500T2 PO (16:14)
[2021-04-19] MEDS ORDERED: NICO-668 BC (16:14)
[2021-04-19] MEDS ORDERED: PANT40TA54 PO (16:14)
[2021-04-19] MEDS ORDERED: OLAN10TA19 PO ×2 (16:14)
[2021-04-19] MEDS ORDERED: ATI1T PO (16:14)
[2021-04-19] MEDS ORDERED: TRIH5TAB3 PO (16:14)
[2021-04-19] MEDS ORDERED: HALO2ORA3 PO (16:14)
[2021-04-19] MEDS ORDERED: HALO5TAB PO (16:14)
[2021-04-19] MEDS ORDERED: ATOR10TA PO (16:14)
[2021-04-19] MEDS ORDERED: TEMA15CA5 PO (16:14)
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
[2021-04-19] MEDS: olanzapine 10mg tablet PO SCH ×2 (17:42→20:43)
[2021-04-19 20:00] VITALS: BP 128/91
[2021-04-19] MEDS: haloperidol 5mg tablet PO SCH (20:42)
[2021-04-19] MEDS: temazepam 15mg capsule PO SCH (20:42)
[2021-04-19] MEDS: divalproex sodium 500mg tablet.DR PO SCH (20:43)
[2021-04-19] MEDS: acetaminophen 325mg tablet PO PRN (20:43)
[2021-04-19 23:51] VITALS: BP 128/91
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
[2021-04-20] MEDS: haloperidol 10mg/5ml UD oral solution PO SCH ×3 (07:32→17:36)
[2021-04-20] MEDS: divalproex 250mg tablet, delayed-release PO SCH (07:32)
[2021-04-20] MEDS: trihexyphenidyl HCL 5 MG tablet PO SCH ×3 (07:32→20:24)
[2021-04-20] MEDS: pantoprazole 40mg Tablet.DR PO SCH (07:32)
[2021-04-20] MEDS: atorvastatin 10mg tablet PO SCH (07:32)
[2021-04-20] MEDS: NICOTINE POLACRILEX 2 MG LOZENGE BC PRN ×4 (07:49→20:25)
[2021-04-20 07:59] VITALS: BP 118/79
--- NOTE | 2021-04-20 14:03 | NUR ---
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 Pt Public Guardian is Thuy Frost phone number #[phone]. Pt was at [place], and was becoming paranoid about his finances. It was found that $200 of his PNI money was unaccounted for and this escalated the patient. Pt began having outbursts of anger and became increasingly paranoid and delusional towards staff and peers. Assessment What has happened this shift: Received pt sleeping w/o distress at the beginning of the shift. Pt woke and was cooperative with vitals. [facility] and was very vocal throughout the day, at times becoming irritated but able respond to limits or walk away. Able to joke and laugh with staff, and talk about relationships with women in the past. Pt vocal about recent court date where he states the oval or circular glass cutter granted a continuance. Pt c/o constipation and was seen by Dr Loaiza who started Colace 100mg BID. S/I, H/I: Denies A/VH: Denies Sleep: Awake this shift ADL's: Independent Group attendance: No Were meds taken: Yes Any med S/E: Denies Mental Status Exam Appearance: Casual in new clothes Eye contact: Good Behavior: Cooperative, talkative Speech: Coherent, delusional at times Mood: Euthymic mostly Affect: Calm Thought process: Linear Thought Content: Circumstantial Cognition: A&Ox3 not to situation Insight: Poor Judgment: Poor Interventions PRN's used: Therapeutic interventions: 1:1 assessment, therapeutic conversation, active listening, medication administration/education/monitoring, behavior monitoring and intervention as needed; reality orientation, limit setting, distraction, redirection, provided encouragement and positive reinforcement, Q 15 minute safety checks. Restraints/seclusion/emergency medication: N/A Justification of Continued Inpatient Treatment: Patient requires a safe and therapeutic milieu while waiting placement. Patient is LPS conserved. This appears to be patents baseline.
[2021-04-20] MEDS: naproxen sodium 220mg tablet PO PRN ×2 (14:48→20:24)
--- NOTE | 2021-04-20 14:55 | NUR ---
Pt. attended group today. We discussed [facility] Hierarchy of Needs and talked about where they felt they were on their journey. We then did an Art Expressions where they had to draw a symbol that they feel represents themselves. They shared this with the group. Pt engaged in group appropriately today. He was in a good mood. His demeanor was calm, cooperative and pleasant to work with. He reported that he feels his needs at this time would be to have a family and a - he feels would like to fulfill his belonging and love needs. He engaged in the art activity. He daniel a drawing with the word Aereon and reported that he had an Aereon heart. He reported he needed magic in his life. He seemed pleased with his drawing. At one point when his peer was sharing he patted her on the back as she seemed upset. When asked why he did that he stated, "she's my friend, I've known her for over 15 years". Natasha Moe LCSW
[2021-04-20] MEDS: haloperidol 5mg tablet PO PRN (16:08)
[2021-04-20] MEDS: LORazepam 1 MG tablet PO PRN (16:08)
[2021-04-20] MEDS: olanzapine 10mg tablet PO SCH ×2 (17:36→20:25)
[2021-04-20] MEDS: diphenhydrAMINE 25mg capsule PO PRN (18:39)
[2021-04-20 19:00] VITALS: BP 109/73
[2021-04-20] MEDS: temazepam 15mg capsule PO SCH (20:24)
[2021-04-20] MEDS: divalproex sodium 500mg tablet.DR PO SCH (20:24)
[2021-04-20] MEDS: benztropine 1mg tablet PO PRN (20:24)
[2021-04-20] MEDS: haloperidol 5mg tablet PO SCH (20:24)
[2021-04-20] MEDS: docusate sod 100mg capsule PO SCH (20:25)
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
--- NOTE | 2021-04-21 06:44 | NUR ---
DISCHARGE PLAN Hardik has been accepted at [facility] and transport has been arranged for today. His medications were delivered yesterday. Public Guardian will pick him up at 8:30 AM. They have requested he get escorted downstairs to the tow bar driver at 8:30 AM with all his belongings, medications, etc. LEXIE Squires
[2021-04-21] MEDS: docusate sod 100mg capsule PO SCH (07:35)
[2021-04-21] MEDS: LORazepam 1 MG tablet PO PRN (07:35)
[2021-04-21] MEDS: divalproex 250mg tablet, delayed-release PO SCH (07:35)
[2021-04-21] MEDS: pantoprazole 40mg Tablet.DR PO SCH (07:36)
[2021-04-21] MEDS: haloperidol 10mg/5ml UD oral solution PO SCH (07:36)
[2021-04-21] MEDS: trihexyphenidyl HCL 5 MG tablet PO SCH (07:36)
[2021-04-21] MEDS: atorvastatin 10mg tablet PO SCH (07:36)
[2021-04-21 08:00] VITALS: BP 124/71
[2021-04-21] MEDS: NICOTINE POLACRILEX 2 MG LOZENGE BC PRN (08:29)
--- NOTE | 2021-04-21 08:30 | NUR ---
Discharge Note: Pt. discharged from the unit at 0830 accompanied by staff, security, and and spotter driver who will be taking him to [place]. Belongings inventoried and returned to patient by Tech. This staff writer reviewed medications and discharge instructions with patient and he reported understanding. Medications sent with pt. along with nicotine replacement. Pt. is able to contract for safety, however exhibited some anxiety and agitation r/t discharge and was provided PRN Ativan 2mg with effectiveness.
[2021-04-21] MEDS ORDERED: DIVA-76 PO (08:31)
== END 2021-04-21 08:30 | disposition short-term general hospital (02) | DRG 885 ==
LOC: ADULT MH 19:36
PROVIDERS: ADMIT Psychiatry & Neurology Psychiatry; ATTEND Psychiatry & Neurology Psychiatry
PROC: 3E02340 Introduction of Influenza Vaccine into Muscle, Percutaneous Approach (ICD-10-PCS; 2021-01-17)
PROC: XW023U6 Introduction of COVID-19 Vaccine into Muscle, Percutaneous Approach, New Technology Group 6 (ICD-10-PCS; principal; 2021-02-23)
DX: F25.0 Schizoaffective disorder, bipolar type (principal); E78.5 Hyperlipidemia, unspecified; F17.210 Nicotine dependence, cigarettes, uncomplicated; I10 Essential (primary) hypertension; K21.9 Gastro-esophageal reflux disease without esophagitis; R32 Unspecified urinary incontinence; G89.29 Other chronic pain; H92.01 Otalgia, right ear; H61.23 Impacted cerumen, bilateral; I95.9 Hypotension, unspecified; F17.200 Nicotine dependence, unspecified, uncomplicated; M25.552 Pain in left hip; G47.00 Insomnia, unspecified; Z79.899 Other long term (current) drug therapy; Z82.0 Family history of epilepsy and other diseases of the nervous system; Z83.3 Family history of diabetes mellitus; Z23 Encounter for immunization; D70.2 Other drug-induced agranulocytosis; T42.4X5A Adverse effect of benzodiazepines, initial encounter; Y92.230 Patient room in hospital as the place of occurrence of the external cause; Z71.6 Tobacco abuse counseling; Z78.1 Physical restraint status
CPT/HCPCS: 36415; 80053; 80061; 80164; 83036; 84153; 84154; 84443; 85025; 87081; 93005; J0515; J1200; J1630; J2060; J3490; Q0163; Q2039